=== PATIENT | male | born 1945 | race Caucasian/White ===

== ENCOUNTER 2023-11-26 03:47 | Emergency (ER) | payer MEDICARE, MEDICAID, SELFPAY ==
--- NOTE | ~2023-11-26 | XR_ITS ---
EXAMINATION: XR hip LT 2V w AP pelvis DATE: 11/26/2023 06:21 INDICATION: Left hip pain. Fall. TECHNIQUE: An anteroposterior view of the pelvis and 2 views of left hip were obtained. COMPARISON: CT lumbar spine 11/26/2023 FINDINGS: There is lumbar dextrocurvature and severe spondylosis. No fracture. Right innominate bone demonstrates cortical thickening and areas of sclerosis. There is moderate osteoarthritis of the hips . IMPRESSION: 1. Moderate osteoarthritis of the hips. 2. 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 Reviewed, dictated and finalized at location E. ECONOMICS EXTENSION WORKER IMPRESSION: 1. Moderate osteoarthritis of the hips. 2. Cortical thickening and sclerosis involving right innominate bone, consisten t with Paget disease.
--- NOTE | ~2023-11-26 | CT_ITS ---
EXAMINATION: CT lumbar spine wo con DATE: 11/26/2023 06:08 INDICATION: Fall. TECHNIQUE: Computed tomography (CT) of the lumbar spine was performed without intravenous contrast. A utomated exposure control and iterative reconstruction technique were employed. The dose-length produ ct was 1110.36 mGy-cm. COMPARISON: None FINDINGS: There is 10 degrees dextroscoliosis of thoracolumbar spine. There are Schmorl's nodes at mu ltiple levels. There are areas of sclerosis in the iliac bones. There is moderately decreased disc he ight at T10-T11, mildly decreased disc height at L1-L2 and L2-L3, moderately decreased disc height at L3-L4 and L4-L5, and severely decreased disc height at L5-S1. There is a small right pleural effusio n. There are 4 stones in left kidney measuring up to 4 mm. The following disc levels are specifically discussed: L1-L2: The disc does not extend beyond the endplate margin. There is moderate bilateral facet joint o steoarthritis. There is no neural foraminal stenosis. There is no central canal stenosis. L2-L3: The disc is bulging. There is severe bilateral facet joint osteoarthritis. There is mild bilat eral neural foraminal stenosis. There is mild central canal stenosis. L3-L4: The disc is bulging. There is severe bilateral facet joint osteoarthritis. There is moderate b ilateral neural foraminal stenosis. There is mild central canal stenosis. L4-L5: The disc is bulging. There is severe bilateral facet joint osteoarthritis. There is moderate b ilateral neural foraminal stenosis. There is moderate central canal stenosis. L5-S1: The disc is bulging. There is severe bilateral facet joint osteoarthritis. There is moderate b ilateral neural foraminal stenosis. There is mild central canal stenosis. IMPRESSION: 1. No fracture. 2. Severe lumbar spondylosis. 3. Thoracolumbar dextroscoliosis. 4. Small right pleural effusion. 5. Areas of sclerosis in the iliac bones, which may be benign bone islands, Paget disease, or metasta tic disease. Bone scan is recommended. Reviewed, dictated and finalized at location E. GER FILM IMPRESSION: 1. No fracture. 2. Severe lumbar spondylosis. 3. Thoracolumbar dextroscoliosis. 4. Small right pleural effusion. 5. Areas of sclerosis in the iliac bones, which may be benign bone islands, Pag et disease, or metastatic disease. Bone scan is recommended.
[2023-11-26 03:49] VITALS: BP 141/73; PULSE 62; RESP 16; TEMP 36.4; O2SAT 100
[2023-11-26 04:24] VITALS: BP 159/75; PULSE 64; RESP 13; O2SAT 100
--- NOTE | 2023-11-26 06:40 | ED.GENADULT ---
HPI - General Adult General Chief complaint: Extremity Injury, Lower Stated complaint: fall, L hip pain Time Seen by Provider: 11/26/23 05:19 History of Present Illness HPI narrative: Patient is a 78-year-old male who presents to the emergency department this evening complaining of left-sided hip pain. Patient states that approximately 4 or 5 days ago he fell down a few steps and landed on his left hip. Patient admits that he has been ambulatory since then but is having some left hip pain when he walks. Patient denies hitting his head and denies any loss of consciousness. Patient admits to lower back pain, denies any bowel or bladder incontinence, any numbness and no tingling or any focal weakness. Patient denies any headaches or dizziness, is currently denying any additional symptoms. There are no other modifying, alleviating, or precipitating factors at this time. Review of Systems Review of Systems: All systems are reviewed and are negative unless stated otherwise in the HPI. Exam Narrative: General: Alert, awake, afebrile, in no acute distress. HEENT: PERRL, no rhinorrhea, no post nasal drip, oropharynx clear. Neck: Trachea midline, no JVD, no lymphadenopathy. Cardiovascular: Regular rate and rhythm, no murmurs, rubs or gallops, no peripheral edema. Respiratory: Clear to auscultation bilaterally, no tachypnea, no wheezing, no rhonchi, no rubs, no respiratory distress. Abdomen: Soft, nontender, nondistended, no rebound, no guarding, no peritoneal signs. Musculoskeletal: No joint swelling or deformity, normal muscle tone. Back: Midline tenderness to palpation over the lumbar spine, no cervical or thoracic midline tenderness to palpation, no step-offs or deformities. Skin: No rashes or petechia, no signs of infection. Psychiatric: Alert and oriented, normal behavior and judgment for situation. Neurological: Alert and oriented to person, place, and time. Follows all commands. No focal deficits, speech is clear and fluent. Course Vital Signs Vital signs: Vital Signs Temperature 97.6 F 11/26/23 03:49 Pulse Rate 62 11/26/23 03:49 Respiratory Rate 16 11/26/23 03:49 Blood Pressure 141/73 H 11/26/23 03:49 Pulse Oximetry 100 11/26/23 03:49 Oxygen Delivery Room Air 11/26/23 03:49 Temperature 97.6 F 11/26/23 03:49 Pulse Rate 64 11/26/23 04:24 Respiratory Rate 13 11/26/23 04:24 Blood Pressure 159/75 H 11/26/23 04:24 Pulse Oximetry 100 11/26/23 04:24 Oxygen Delivery Room Air 11/26/23 03:49 Medical Decision Making MDM Narrative Medical decision making narrative: The patient was evaluated by myself in the emergency department. History is obtained from patient who is an independent historian and physical exam was performed. External medical records were reviewed at this time. Imaging studies obtained included a CT lumbar spine without IV contrast and pelvis x-ray with left hip x-ray which was independently interpreted by me revealing no acute process, no fractures or dislocations. 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 Patient states that he does not recall ever being told that he has been checked disease. Differential diagnosis considerations include fractures versus a dislocation of his lumbar spine and left hip. Comorbidities impacting this visit include none. I have evaluated and discussed social determinants of health with the patient that could potentially impact subsequent diagnosis and treatment plans. On repeat assessment of the patient, reevaluation revealed that the patient is doing well and is in no acute distress. Patient symptoms have remained stable since he arrived to our emergency department. Repeat vital signs were all reviewed and noted to be stable. Differential diagnosis and treatment plan were discussed with the patient at bedside. Patient agrees with discussion and after shared medical decision making agrees with discharge. All qu
[2023-11-26 06:52] VITALS: BP 148/74; PULSE 74; RESP 18; O2SAT 97
== END 2023-11-26 06:54 | disposition home or self-care (01) ==
PROVIDERS: Emergency Provider Emergency Medicine; PCP Internal Medicine
DX: S79.912A Unspecified injury of left hip, initial encounter (principal); M16.0 Bilateral primary osteoarthritis of hip; R93.7 Abnormal findings on diagnostic imaging of other parts of musculoskeletal system; W10.9XXA Fall (on) (from) unspecified stairs and steps, initial encounter
CPT/HCPCS: 72131; 73502; 99283; 99284

== ENCOUNTER 2024-01-13 10:14 | Outpatient (CLI) | payer MEDICARE, MEDICAID, SELFPAY ==
[2024-01-13 11:13] LABS: Anion Gap 7 mmol/L (4-12); Blood Urea Nitrogen 17 mg/dL (9-20); Carbon Dioxide 28 mmol/L (22-30); Chloride 102 mmol/L (98-107); Estimated Glomerular Filt Rate > 60; Glucose 123 mg/dL (65-110); Potassium 5.3 mmol/L (3.4-5.0); Sodium 137 mmol/L (137-145)
== END 2024-01-13 10:15 | disposition home or self-care (01) ==
LOC: ANHSURGERY 10:18
PROVIDERS: Anesthesiology; PCP Internal Medicine; Visit Provider Urology
DX: E11.9 Type 2 diabetes mellitus without complications (principal); Z01.818 Encounter for other preprocedural examination
CPT/HCPCS: 36415; 80048

== ENCOUNTER 2024-01-16 00:29 | Day surgery (SDC) | payer MEDICARE, MEDICAID, SELFPAY ==
[2024-01-13 09:35] VITALS: BMI 28.8
--- NOTE | 2024-01-13 11:24 | PC.NURSE ---
Report to the Outpatient Waiting Room, entrance under the green pavilion located off [facility], at time 0715 on date _01/16/24 . Planned Procedure Time: __914 . Time changes happen often and if your time is changed the preop area will call you the afternoon before. - You and your visitor will be asked to self-screen and do not enter if you have any COVID symptoms. - A mask is optional within the hospital at this time. Patients may have clear liquids (water, carbonated beverages, clear teas, apple juice) until 3 hours prior to surgery(6:15 AM ) with a maximum of 20 ounces. - No food from midnight until time of surgery - Infants may have breast milk until 4 hours before surgery, infant formula 6 hours prior to surgery. - Children will be allowed to drink immediately following surgery. If applicable, please bring a bottle or sippy cup to assist with drinking. Juice, water, soda, and popsicles are readily available. For infants on formula, please bring formula the day of surgery. Pacifiers are allowed. Take the following medications with a SIP of water the morning of surgery: __SERTRALINE DO NOT STOP ANY OF YOUR OTHER PRESCRIPTION MEDICATIONS PRIOR TO SURGERY ?EXCEPT THE FOLLOWING Medications to discontinue per physician __[facility] STATES HOLD ASPIRIN .LAST DOSE 01/09/24 AND HOLD ELIQUIS.LAST DOSE 01/13/[address] GREENE Date to take last dose Please no make-up, nail latvian, hairspray, perfume, deodorant, or body powder the day of surgery. No jewelry (including any body piercings) or valuables the day of surgery, leave them at home. Please take a shower or bath the night before, or the morning of, surgery with an antibacterial soap. Wear comfortable, loose fitting clothing. Children are encouraged to wear pajamas. - Jewelry must be removed prior to entering the operating room. Rings and piercings that are not removed may be cut off. - The hospital will not accept responsibility for valuables. - Please leave all valuables, including medications, at home the day of surgery. If you are going home after surgery, a licensed driver service technician must drive you home. - NO public transportation without another adult if you receive anesthesia. - We recommend that an adult stay with you for 24 hours following discharge. - We also recommend that you do not drive, make important decision, drink alcoholic beverages, or take any drugs that were not prescribed by your health care provider for at least 24 hours after your discharge time. For Pediatric surgeries, we recommend two adults accompany the child home. Follow any additional instructions given to you from your surgeon. If you or anyone in your household have experienced Covid symptoms in the past week, please notify your surgeon or the nurse liaison at the phone number below for possible testing. Telephone instructions given to _PT AND SON SOLA and asked if any additional questions and then verbalized understanding. Patient advised to call surgeon office or pre surgery nurse liaison [phone] if any additional questions.
[2024-01-16] VITALS (10 sets, daily range): BP systolic 100–149; BP diastolic 56–81; PULSE 51–58; RESP 12–20; TEMP 36.1–36.2; O2SAT 97–100
--- NOTE | ~2024-01-16 | XR_ITS ---
EXAMINATION: XR retrograde pyelogram BI DATE: 01/16/2024 08:56 CDT INDICATION: Bilateral retrograde pyelogram TECHNIQUE: 152 fluoroscopic images from bilateral retrograde pyelogram are submitted for review. 39 s econds fluoroscopy time. FINDINGS: Ureters are normal in course and caliber. No definite filling defects are seen. Extravasati on is noted surrounding the distal aspect of the right ureter, likely due to injection. The right julio c al pelvis is not well visualized. IMPRESSION: 1. Unremarkable bilateral retrograde pyelogram.. Correlate with real time procedural findings for de tails. Reviewed, dictated and finalized at location B. IMPRESSION: 1. Unremarkable bilateral retrograde pyelogram.. Correlate with real time proc edural findings for details.
--- NOTE | 2024-01-16 06:07 | WPDHPUPDATE1 ---
History and Physical Update Update Date/Time: 01/16/24 06:07 History and Physical has been reviewed, including an updated exam of the patient. There are NO changes in the patient's condition. Risks, benefits, and alternatives have been discussed and questions answered. Patient agrees to proceed with procedure.
[2024-01-16] MEDS: LACTATED RINGERS 1,000 ML 30 ML IV CONT (08:06)
--- NOTE | 2024-01-16 08:14 | WPDANESEPPF ---
Anes - Initial Pre Proc Eval Procedure: Operation Date: 01/16/24 09:15 Proposed Procedures p Transurethral Resection of Bladder Tumor, - Hugo Freeman MD s Bilateral Retrograde Pyelography, Gemcitabine Instillation - Hugo Freeman MD Date/Time: 01/16/24 08:14 Surgeon: Hugo Freeman MD Pre Op Diagnosis: gross hematuria Patient Data Age: 78 Gender: M Height: 1.85 m Weight: 95.6 kg Last Vital Signs Temp 97.0 F L 01/16/24 07:41 Pulse 57 L 01/16/24 07:41 Resp 18 01/16/24 07:41 BP 118/56 L 01/16/24 07:41 Pulse Ox 99 01/16/24 07:41 O2 Del Method Room Air 01/16/24 07:41 Allergies Allergy/AdvReac Type Severity Reaction Status Date / Time amitriptyline AdvReac Other Verified 01/16/24 07:36 codeine AdvReac Confusion Verified 01/16/24 08:06 morphine AdvReac Nausea and Verified 01/16/24 07:36 Vomiting Penicillins AdvReac Swelling Verified 01/16/24 07:36 Home Medications Medication Instructions Recorded Confirmed Type apixaban 5 mg tablet (Eliquis) 5 mg PO BID 01/13/24 01/16/24 History aspirin 81 mg tablet,delayed 81 mg PO DAILY 01/13/24 01/16/24 History release (Adult Low Dose Aspirin) atorvastatin 80 mg tablet 40 mg PO DAILY 01/13/24 01/16/24 History dulaglutide 1.5 mg/0.5 mL 1.5 mg subcut WEEKLY 01/13/24 01/16/24 History subcutaneous pen injector (Trulicity) enoxaparin 80 mg/0.8 mL 80 mg subcut BID 01/13/24 01/16/24 History subcutaneous syringe lisinopril 2.5 mg tablet 2.5 mg PO DAILY 01/13/24 01/16/24 History metformin 500 mg tablet,extended 500 mg PO DAILY 01/13/24 01/16/24 History release 24 hr mirabegron 50 mg tablet,extended 50 mg PO DAILY 01/13/24 01/16/24 History release 24 hr (Myrbetriq) omeprazole 20 mg capsule,delayed 20 mg PO BID 01/13/24 01/16/24 History release sertraline 50 mg tablet 50 mg PO DAILY 01/13/24 01/16/24 History tamsulosin 0.4 mg capsule 0.4 mg PO DAILY 01/13/24 01/16/24 History Patient hx anesthesia problems: none Family hx anesthesia problems: none Results Review: All pre-operative results and documents have been reviewed as part of the pre-operative evaluation. [facility] Social History Social History Smoking packs per day: 0.5 Smoking cigarettes per day: 10.0 Years smoked: 20 Smoking pack-years: 10.00 Smoking status: Former smoker Tobacco type: cigarettes Smoking end date: 09/23/94 Living arrangements: with family Spiritual care concerns: No Anes - Eval Final PreProcedure Day of Procedure 01/16/24 08:14 Patient weight: normal Heart: regular rate and rhythm Lungs: clear to auscultation Airway: Mallampati scale and special considerations (Edentulous. ) Neurological: alert and oriented Last oral intake: >/= 8 hours ASA classification: III Emergent: no Anesthetic plan: proceed Anesthesia type and monitoring: general LMA and standard monitoring Results Review: All pre-operative results and documents have been reviewed as part of the pre-operative evaluation. Informed Consent: The patient's anesthetic plan and its attendant risks and benefits were discussed with the patient/family/POA. Questions were solicited and answers provided to the satisfaction of the patient/family/POA.
[2024-01-16 08:19] LABS: Glucose Point of Care 127 mg/dl (65-105)
[2024-01-16] MEDS: ceFAZolin 2 GM/D5W 50 ML 2 GM/50 ML BAG IVPB (08:24)
[2024-01-16] MEDS: LIDOCAINE HCL 2% GEL UROJET 10 ML PKG MUCOUS MEM (08:44)
--- NOTE | 2024-01-16 09:05 | W.PM.PROC2 ---
Procedure Note - Detailed Date of Procedure 01/16/24 Pre-op Diagnosis Gross hematuria Post-op Diagnosis Same Procedure Performed cystoscopy, urethral dilatation, bilateral retrograde pyelography, TURBT (medium, 4cm) Surgeon Hugo Freeman MD Anesthesia General Description of Procedure Patient is brought to the operative suite he was prepped draped in routine sterile fashion will dorsal lithotomy position. I had to dilate his external urethral meatus from 18 to 26 F in order to place a 24 F resectoscope sheath. I 1st started with a 19 F rigid cystoscope. Other than the meatal stenosis is no urethral strictures. He has significant lateral lobe hyperplasia and a small median lobe of the prostate. Prostatic urethra measures 2.5-3 cm. The bladder shows slight trabeculation. There these previously identified areas of unusual hyperemia in the left and right posterior lateral bladder wall. I 1st obtain retrograde pyelograms with a 5 F ball-tip catheter. Because of J hooking is a little difficult to fill is right collecting system but there was no obvious points of obstruction, hydronephrosis, filling defects or other identifiable pathology. Using a 24 F resectoscope I then resected these areas of hyperemia with an attempt made to include detrusor muscle for pathological evaluation of any invasion if this turns out to be neoplastic. Base and periphery were cauterized. This was done with care to avoid injury to the ureteral orifices. Drains No Packing No Pathology Yes Complications No immediate complications Condition Stable
--- NOTE | 2024-01-16 09:08 | W.PM.PROC2 ---
Procedure Note - Detailed Date of Procedure 01/16/24 Pre-op Diagnosis Gross hematuria Post-op Diagnosis Same Procedure Performed Gemcitabine installation Surgeon Hugo Freeman MD Anesthesia None Description of Procedure With the patient in the supine position, a 16F Omer catheter is placed using sterile technique. Using a protective facemask, gown and double layer of gloves Gemcitabine 2gm in 100cc saline is administered through the catheter/into the bladder. The catheter is then plugged. Patient was instructed to lie supine x20min, then to roll both the left and right x20 min. each. Total dwell time will be 60 min., after which the bladder will be drained and catheter removed. Complications No immediate complications Condition Stable
[2024-01-16 09:14] LABS: Glucose Point of Care 133 mg/dl (65-105)
[2024-01-16] MEDS: SODIUM CHLORIDE 0.9% IV 23.7 ML, GEMCITABINE HCL 1,000 MG BLADDER ×2 (09:23→09:24)
[2024-01-16] MEDS: oxyCODONE HCL (*CRX) 5 MG TAB IR PO (11:00)
== END 2024-01-16 11:29 | disposition home or self-care (01) ==
PROVIDERS: PCP Internal Medicine; Visit Provider Urology
PROC: 0TBB8ZZ Excision of Bladder, Via Natural or Artificial Opening Endoscopic (ICD-10-PCS; CPT 52235; principal; 2024-01-16 09:15)
PROC: (CPT 52352; 2024-01-16 09:15)
DX: N30.21 Other chronic cystitis with hematuria (principal); I10 Essential (primary) hypertension; E11.9 Type 2 diabetes mellitus without complications; I25.2 Old myocardial infarction; Z79.82 Long term (current) use of aspirin; Z79.01 Long term (current) use of anticoagulants; Z79.84 Long term (current) use of oral hypoglycemic drugs; Z79.85 Long-term (current) use of injectable non-insulin antidiabetic drugs; Z98.890 Other specified postprocedural states; Z90.49 Acquired absence of other specified parts of digestive tract; Z87.891 Personal history of nicotine dependence; Z80.9 Family history of malignant neoplasm, unspecified
CPT/HCPCS: 52235; 36415; 51720; 74420; 80048; 82948; 88305; 88342; A9270; C1758; C1769; J0690; J2405; J2704; J3010; J7120; J9201; Q9966

== ENCOUNTER 2024-01-25 12:01 | Emergency (ER) | payer MEDICARE, MEDICAID, SELFPAY ==
[2024-01-25 12:07] VITALS: BP 140/63; PULSE 97; RESP 18; TEMP 36.3; O2SAT 100
[2024-01-25 13:07] LABS: Appearance Urine Turbid (Clear); Bacteria Urine None Seen /hpf; Bilirubin Urine Negative (Negative); Blood Urine 3+ (Negative); Color Urine Yellow (Yellow); Glucose Urine UA 3+ mg/dL (Negative); Ketones Urine Negative (Negative); Leukocyte Esterase Ur 2+ LEU/UL (Negative); Nitrate Urine Negative (Negative); Protein Urine 2+ mg/dL (Negative); RBC Urine >100 /hpf (0-2); Squamous Epithelial Cell Urine None Seen /hpf (Few); Urobilinogen Urine 0.2 mg/dL (<2.0); WBC Urine >100 /hpf (0-3); pH Urine 5.5 (5.0-9.0)
[2024-01-25 13:10] LABS: Specific Grav Ur 1.035 (1.001-1.035)
[2024-01-25 13:13] LABS: Add Urine Microscopic? YES
--- NOTE | 2024-01-25 13:49 | ED.MALEGU ---
HPI - Male Genitourinary General Chief complaint: Urogenital-Male Stated complaint: painful urination Time Seen by Provider: 01/25/24 13:20 Source: patient Mode of arrival: ambulatory Limitations: no limitations History of Present Illness HPI Narrative: This is a 78-year-old male that presents to the emergency department for dysuria. Ongoing over the last week since his recent cystoscopy. Reports having bladder tumors removed. Since the procedure he has been having dysuria and urinary incontinence. He initially was having some hematuria, which has now resolved. Denies fevers, vomiting, or flank pain. Related Data Home Medications Medication Instructions Recorded Confirmed apixaban 5 mg tablet (Eliquis) 5 mg PO BID 01/13/24 01/16/24 aspirin 81 mg tablet,delayed 81 mg PO DAILY 01/13/24 01/16/24 release (Adult Low Dose Aspirin) atorvastatin 80 mg tablet 40 mg PO DAILY 01/13/24 01/16/24 dulaglutide 1.5 mg/0.5 mL 1.5 mg subcut WEEKLY 01/13/24 01/16/24 subcutaneous pen injector (Trulicity) enoxaparin 80 mg/0.8 mL 80 mg subcut BID 01/13/24 01/16/24 subcutaneous syringe lisinopril 2.5 mg tablet 2.5 mg PO DAILY 01/13/24 01/16/24 metformin 500 mg tablet,extended 500 mg PO DAILY 01/13/24 01/16/24 release 24 hr mirabegron 50 mg tablet,extended 50 mg PO DAILY 01/13/24 01/16/24 release 24 hr (Myrbetriq) omeprazole 20 mg capsule,delayed 20 mg PO BID 01/13/24 01/16/24 release sertraline 50 mg tablet 50 mg PO DAILY 01/13/24 01/16/24 tamsulosin 0.4 mg capsule 0.4 mg PO DAILY 01/13/24 01/16/24 Allergies Allergy/AdvReac Type Severity Reaction Status Date / Time amitriptyline AdvReac Other Verified 01/25/24 12:05 codeine AdvReac Confusion Verified 01/25/24 12:05 morphine AdvReac Nausea and Verified 01/25/24 12:05 Vomiting Penicillins AdvReac Swelling Verified 01/25/24 12:05 Review of Systems Review of Systems: CONSTITUTIONAL: Denies fever GASTROINTESTINAL: Denies abdominal pain, nausea, vomiting GENITOURINARY: Reports dysuria and hematuria. All systems reviewed & are unremarkable except as noted in HPI and below PMFSH Past Medical History Medical History (Updated 01/25/24 @ 15:06 by Ly Bullard PA-C) History of diabetes mellitus History of hypertension Surgical History Surgical History (Updated 01/25/24 @ 13:50 by Ly Bullard PA-C) History of transurethral resection of bladder tumor (TURBT) Social History Social History Smoking packs per day: 0.5 Smoking cigarettes per day: 10.0 Years smoked: 20 Smoking pack-years: 10.00 Smoking status: Former smoker Tobacco type: cigarettes Smoking end date: 09/23/94 Living arrangements: with family Spiritual care concerns: No Exam Narrative: GENERAL: Well-appearing, well-nourished, and in no acute distress. HEAD: Normocephalic, atraumatic. EYES: EOMI. CHEST: Clear to auscultation. No respiratory distress. No wheezes rales or rhonchi HEART: Regular rate and rhythm. No murmur heard. Normal peripheral pulses. ABDOMEN: Soft, nontender, nondistended, normal active bowel sounds. No CVA tenderness EXTREMITIES: Normal range of motion. No edema. SKIN: Warm, dry, no rash. NEURO: No focal deficits. Alert and oriented x3. PSYCH: Normal mood and affect Course Course Emergency Course: Patient updated on workup and agrees with plan of care Consultations Consultation #1: Spoke with Dr. Hernandez about patient and workup who agrees with oral antibiotics and follow up in clinic Date: 01/25/24 Vital Signs Vital signs: Vital Signs Temperature 97.3 F L 01/25/24 12:07 Pulse Rate 97 01/25/24 12:07 Respiratory Rate 18 01/25/24 12:07 Blood Pressure 140/63 01/25/24 12:07 Pulse Oximetry 100 01/25/24 12:07 Temperature 97.3 F L 01/25/24 12:07 Pulse Rate 97 01/25/24 12:07 Respiratory Rate 18 01/25/24 12:07 Blood Pressure 140/63
[2024-01-25 13:51] LABS: Basophils Percent Auto 0.3 % (0.2-1.2); Eosinophils Absolute Auto 0.2 K/mm3 (0-0.3); Eosinophils Percent Auto 3.4 % (0-4.4); Hematocrit 40.9 % (42.0-52.0); Hemoglobin 13.3 g/dL (14.0-18.0); Lymphocytes Absolute Auto 1.83 K/mm3 (0.9-3.2); Lymphocytes Percent Auto 31.4 % (18.3-44.2); Mean Corpuscular HGB Conc 32.5 g/dl (32-36); Mean Corpuscular Hemoglobin 29.7 pg (26-34); Mean Corpuscular Volume 91.3 fl (80-100); Mean Platelet Volume 8.2 fl (7.4-10.4); Monocytes Absolute Auto 0.5 K/mm3 (0.1-0.6); Monocytes Percent Auto 7.9 % (2.6-8.5); Neutrophils Absolute Auto 3.3 K/mm3 (1.3-6.7); Platelet Count Result 200 k/mm3 (150-375); Red Blood Count 4.48 M/mm3 (4.6-6.20); Red Cell Distribution Width 14.1 % (11.5-14.5); White Blood Count 5.8 K/mm3 (4.5-10.0)
[2024-01-25 14:07] LABS: Anion Gap 8 mmol/L (4-12); Blood Urea Nitrogen 20 mg/dL (9-20); Calcium 9.3 mg/dL (8.4-10.2); Carbon Dioxide 26 mmol/L (22-30); Chloride 104 mmol/L (98-107); Estimated CRCL calculation 67 ml/min; Estimated Glomerular Filt Rate > 60; Glucose 174 mg/dL (65-110); Potassium 4.2 mmol/L (3.4-5.0); Sodium 138 mmol/L (137-145)
[2024-01-25 15:26] VITALS: BP 116/66; PULSE 66; RESP 18; O2SAT 96
== END 2024-01-25 15:44 | disposition home or self-care (01) ==
PROVIDERS: Emergency Medicine; Emergency Provider Physician Assistant; PCP Internal Medicine
DX: N30.00 Acute cystitis without hematuria (principal); E11.9 Type 2 diabetes mellitus without complications; I10 Essential (primary) hypertension; Z87.891 Personal history of nicotine dependence; Z79.01 Long term (current) use of anticoagulants; Z79.82 Long term (current) use of aspirin; Z79.84 Long term (current) use of oral hypoglycemic drugs
CPT/HCPCS: 36415; 80048; 81001; 85025; 87077; 87086; 87088; 87181; 96365; 99284; J0696

== ENCOUNTER 2024-01-28 23:57 | Observation (INO) | payer MEDICARE, MEDICAID, SELFPAY ==
--- NOTE | ~2024-01-28 | CT_ITS ---
Non-contrast CT scan of the Abdomen and Pelvis Clinical indication: Hematuria, recent cystoscopy Technique: 2.5 mm axial scans were obtained through the abdomen and pelvis without intravenous or or al contrast. Dose reduction technique was used on this scan by utilizing automated exposure control a nd iterative reconstruction technique. The dose-length product (DLP) was 749.53 mGy-cm. Findings: Images through the lung bases reveal probable rounded atelectatic change at the right lung base. There is [id number] bilateral hydroureteronephrosis. No ureteral stones seen. There are small n onobstructing left lower pole renal stones, largest measuring 6 mm. No right renal stones. The liver, spleen, pancreas, and adrenals appear normal. Cholecystectomy clips are present. There is no aortic aneurysm. There is no evidence of bowel obstruction. Images through the pelvis were performed. There is no evidence of ascites or lymphadenopathy. Urinary bladder is filled with hyperdense material and small bubbles of air, compatible with large intralumi nal blood clot or blood products within the urinary bladder. No pelvic mass evident otherwise. Small fat-containing right inguinal hernia noted. Paget's disease of the right iliac bone and right ischium noted. Impression: Large amount of blood products versus hematoma within the urinary bladder, as well as small bubbles o f air which are likely iatrogenic. Mild to moderate bilateral hydroureteronephrosis. Number small nonobstructing left lower pole renal s tones. Small fat-containing right inguinal hernia. Paget's disease in the right pelvis, as detailed above. Reviewed, dictated and finalized at location . Impression: Large amount of blood products versus hematoma within the urinary bladder, as w ell as small bubbles of air which are likely iatrogenic. Mild to moderate bilateral hydroureteronephrosis. Number small nonobstructing l eft lower pole renal stones. Small fat-containing right inguinal hernia. Paget's disease in the right pelvis, as detailed above.
[2024-01-29] VITALS (15 sets, daily range): BP systolic 105–160; BP diastolic 55–83; PULSE 58–109; RESP 14–20; TEMP 36.2–36.5; O2SAT 95–100; BMI 27.2
--- NOTE | 2024-01-29 02:01 | ED.MALEGU ---
HPI - Male Genitourinary General Chief complaint: Urogenital-Male Stated complaint: Bleeding from penis Time Seen by Provider: 01/29/24 00:25 Source: patient and old records reviewed Mode of arrival: ambulatory Limitations: no limitations History of Present Illness HPI Narrative: Patient is a 78-year-old male who presents the ED with report of bleeding from his penis. Patient reports he underwent cystoscopy with TURBT and urethral dilation with Dr. Freeman on 01/15. Patient reports over the last several days, he has had intermittent hematuria and dysuria. He was seen in the ED here on 01/24 and diagnosed with urinary tract infection, given rocephin in the ED, started on cefdinir. Per records, urine culture grew out VRE. Patient reports ongoing hematuria to the point he is dripping blood of his penis today. Reports significant pain in his lower abdomen/suprapubic region. Denies N/V, fevers. Related Data Home Medications Medication Instructions Recorded Confirmed apixaban 5 mg tablet (Eliquis) 5 mg PO BID 01/13/24 01/16/24 aspirin 81 mg tablet,delayed 81 mg PO DAILY 01/13/24 01/16/24 release (Adult Low Dose Aspirin) atorvastatin 80 mg tablet 40 mg PO DAILY 01/13/24 01/16/24 dulaglutide 1.5 mg/0.5 mL 1.5 mg subcut WEEKLY 01/13/24 01/16/24 subcutaneous pen injector (Trulicity) enoxaparin 80 mg/0.8 mL 80 mg subcut BID 01/13/24 01/16/24 subcutaneous syringe lisinopril 2.5 mg tablet 2.5 mg PO DAILY 01/13/24 01/16/24 metformin 500 mg tablet,extended 500 mg PO DAILY 01/13/24 01/16/24 release 24 hr mirabegron 50 mg tablet,extended 50 mg PO DAILY 01/13/24 01/16/24 release 24 hr (Myrbetriq) omeprazole 20 mg capsule,delayed 20 mg PO BID 01/13/24 01/16/24 release sertraline 50 mg tablet 50 mg PO DAILY 01/13/24 01/16/24 tamsulosin 0.4 mg capsule 0.4 mg PO DAILY 01/13/24 01/16/24 Allergies Allergy/AdvReac Type Severity Reaction Status Date / Time iodine Allergy Rash Verified 01/29/24 02:40 amitriptyline AdvReac Other Verified 01/25/24 12:05 codeine AdvReac Confusion Verified 01/25/24 12:05 morphine AdvReac Nausea and Verified 01/25/24 12:05 Vomiting Penicillins AdvReac Swelling Verified 01/25/24 12:05 Review of Systems Review of Systems: CONSTITUTIONAL: Denies fever, chills, or sweats. CARDIOVASCULAR: Denies chest pain. RESPIRATORY: Denies dyspnea. GASTROINTESTINAL: See HPI GENITOURINARY: See HPI. MUSCULOSKELETAL: Denies back pain, extremity pain, myalgia. All systems reviewed & are unremarkable except as noted in HPI and below PMFSH Past Medical History Medical History History of diabetes mellitus History of hypertension Surgical History Surgical History History of transurethral resection of bladder tumor (TURBT) Social History Social History Smoking packs per day: 0.5 Smoking cigarettes per day: 10.0 Years smoked: 20 Smoking pack-years: 10.00 Smoking status: Former smoker Tobacco type: cigarettes Smoking end date: 09/23/94 Living arrangements: with family Spiritual care concerns: No Exam Narrative: GENERAL: Uncomfortable appearing, well-nourished, non-toxic, in mild acute distress d/t pain. HEAD: Normocephalic, atraumatic. RESPIRATORY: Airway patent, respirations nonlabored. Clear to auscultation bilaterally, no rales, rhonchi, wheezing. CARDIOVASCULAR: Regular rate and rhythm ABDOMINAL: Soft, diffuse tenderness in suprapubic region, no rebound. Nondistended. Normoactive BS. GENITAL: Uncircumcised male with dark red blood dripping from urethra. MUSCULOSKELETAL: Moves all extremities. No gross deformities. SKIN: Warm, dry, normal color. NEURO: A&O X3. Speech clear. PSYCHIATRIC: Appropriate mood and affect. Normal interaction. Course Vital Signs Vital signs: Vital Signs
[2024-01-29] MEDS: SODIUM CHLORIDE 0.9% IV 1,000 ML 999 ML IV CONT (02:04)
[2024-01-29 02:07] LABS: Basophils Absolute Auto 0.1 K/mm3 (0.0-0.1); Basophils Percent Auto 0.5 % (0.2-1.2); Eosinophils Absolute Auto 0.2 K/mm3 (0-0.3); Eosinophils Percent Auto 2.2 % (0-4.4); Hematocrit 42.5 % (42.0-52.0); Hemoglobin 13.5 g/dL (14.0-18.0); Immature Granulocyte Absolute 0.03 K/mm3 (0.00-0.031); Immature Granulocyte Percent A 0.3 % (0-0.5); Lymphocytes Percent Auto 25.7 % (18.3-44.2); Mean Corpuscular HGB Conc 31.8 g/dl (32-36); Mean Corpuscular Hemoglobin 29.2 pg (26-34); Mean Platelet Volume 8.6 fl (7.4-10.4); Monocytes Absolute Auto 0.7 K/mm3 (0.1-0.6); Monocytes Percent Auto 7.4 % (2.6-8.5); Neutrophils Percent Auto 63.9 % (45.5-73.1); Platelet Count Result 264 k/mm3 (150-375); Red Blood Count 4.62 M/mm3 (4.6-6.20); Red Cell Distribution Width 14.2 % (11.5-14.5); White Blood Count 9.4 K/mm3 (4.5-10.0)
[2024-01-29 02:18] LABS: Anion Gap 12 mmol/L (4-12); Blood Urea Nitrogen 21 mg/dL (9-20); Carbon Dioxide 24 mmol/L (22-30); Chloride 104 mmol/L (98-107); Estimated CRCL calculation 61 ml/min; Estimated Glomerular Filt Rate > 60; Glucose 195 mg/dL (65-110); INR 1.1; Potassium 4.5 mmol/L (3.4-5.0); Prothrombin Time 14.6 Seconds (11.1-14.7); Sodium 140 mmol/L (137-145)
[2024-01-29 02:19] LABS: Partial Thromboplastin Time 35.4 Seconds (22.3-36.8)
[2024-01-29] MEDS: ONDANSETRON INJ 4 MG/2 ML VIAL IV PUSH (02:21)
[2024-01-29] MEDS: MORPHINE SULFATE (*CRX) 4 MG/ML INJ IV PUSH ×3 (02:21→08:37)
[2024-01-29] MEDS: LIDOCAINE HCL 2% GEL UROJET 10 ML PKG MUCOUS MEM ×2 (03:45→11:32)
--- NOTE | 2024-01-29 04:17 | PC.NURSE ---
0417: This RN attempted to put in three way catheter in pt. RN kept meeting resistance. Two other Rn attempted as well and could not get it. We tried all sizes and none would work. This RN told typing secretary to page Dr. Leonardo to discuss options. Charge nurse was notified at this time.
[2024-01-29] MEDS: LINEZOLID 600 MG/300 ML 600 MG/300 ML SOLN 300 MG IVPB ×2 (04:55→21:14)
--- NOTE | 2024-01-29 05:56 | ADMGEN ---
This patient, Cosme Javier, was admitted to [facility] Surg Room 312-01. Patient/family oriented to hospital policies and general routines including ID bracelet, bed and alarms, visiting hours, pain management, procedures, bathroom and other care routines, personal items, smoking policy, room service/diet, and visiting hours. Information on how to activate the Rapid Response Team has been discussed. Patient/Family are encouraged to report perceived risks to care and to ask questions if they do not understand what they are told or what they should do.
--- NOTE | 2024-01-29 07:40 | PM.IMHP ---
H&P: HPI History of Present Illness Date/Time: 01/29/24 07:40 Chief Complaint: Hematuria and dysuria Narrative: Patient is a 78-year-old male with history of diabetes hypertension, GERD, anxiety, on Eliquis 5 mg with chief complaint of a bleeding from his penis.? pt underwent cystoscopy with TURBT and urethral dilation with Dr. Freeman on 01/15.? Patient reports over the last several days, he has had intermittent hematuria and dysuria.? He was seen in the ED here on 01/24 and diagnosed with urinary tract infection, given rocephin in the ED, started on cefdinir.? Per records, urine culture grew out VRE.? Patient reports ongoing hematuria to the point he is dripping blood of his penis today.? patient has suprapubic pain, denies chest pain, shortness breast, headache, fever chills upon arrival to ED, patient afebrile, blood pressure stable, no pulse ox desaturation on room air, Review of Systems Review of Systems: ROS negative Constitutional: Comments: none exam PMFSH Past Medical History Medical History History of diabetes mellitus History of hypertension Surgical History Surgical History History of transurethral resection of bladder tumor (TURBT) Social History Social History Smoking packs per day: 0.5 Smoking cigarettes per day: 10.0 Years smoked: 20 Smoking pack-years: 10.00 Smoking status: Former smoker Tobacco type: cigarettes Smoking end date: 09/23/94 Living arrangements: with family Spiritual care concerns: No Meds Home Medications and Allergies Home Medications Medication Instructions Recorded Confirmed Type apixaban 5 mg tablet (Eliquis) 5 mg PO BID 01/13/24 01/29/24 History aspirin 81 mg tablet,delayed 81 mg PO DAILY 01/13/24 01/29/24 History release (Adult Low Dose Aspirin) atorvastatin 80 mg tablet 40 mg PO DAILY 01/13/24 01/29/24 History dulaglutide 1.5 mg/0.5 mL 1.5 mg subcut WEEKLY 01/13/24 01/29/24 History subcutaneous pen injector (Trulicity) lisinopril 2.5 mg tablet 2.5 mg PO DAILY 01/13/24 01/29/24 History mirabegron 50 mg tablet,extended 50 mg PO DAILY 01/13/24 01/29/24 History release 24 hr (Myrbetriq) omeprazole 20 mg capsule,delayed 20 mg PO BID 01/13/24 01/29/24 History release tamsulosin 0.4 mg capsule 0.4 mg PO DAILY 01/13/24 01/29/24 History cefdinir 300 mg capsule 300 mg PO Q12H 1 week #14 caps 01/25/24 01/29/24 Rx gabapentin 300 mg capsule 300 mg PO BID 01/29/24 01/29/24 History Allergies Allergy/AdvReac Type Severity Reaction Status Date / Time iodine Allergy Rash Verified 01/29/24 02:40 Penicillins Allergy Swelling Verified 01/29/24 08:14 amitriptyline AdvReac Other Verified 01/25/24 12:05 codeine AdvReac Confusion Verified 01/25/24 12:05 morphine AdvReac Nausea and Verified 01/25/24 12:05 Vomiting Vital Signs Vital Signs - 24 hr 01/29/24 00:04 01/29/24 04:20 01/29/24 05:46 Temperature 97.6 F 97.4 F L Pulse Rate 90 109 H 100 Respiratory Rate 18 20 17 Blood Pressure 157/82 H 159/83 H 160/82 H Pulse Oximetry 96 95 96 Oxygen Delivery Room Air Exam Narrative: GENERAL: Pleasant, in no acute distress. Well-nourished. - EYES: EOMI. Anicteric. - HENT: Moist mucous membranes. - LUNGS: Clear to auscultation bilaterally, no wheezing, rhonchi, or rales. - CARDIOVASCULAR: Regular rate and rhythm. No murmur. No JVD. - ABDOMEN: Soft, non-tender and non-distended. No palpable masses. - EXTREMITIES: No edema. Peripheral pulses 2+. Non-tender. - NEUROLOGIC: No focal neurological deficits. CN II-XII grossly intact. - PSYCHIATRIC: Awake, Alert and oriented x 3. Appropriate mood and affect. - SKIN: No rashes or lesions. Warm. - LYMPH: No cervical lymphadenopathy. H&P: Results Labs Labs: Short CBC 01/29/24 Range/Units 02:02
--- NOTE | 2024-01-29 08:12 | WPDURCON ---
Assessment and Plan Assessment and plan (1) Gross hematuria: Code(s): R31.0 - Gross hematuria Status: Acute Assessment and Plan: CT demonstrates large amount of blood products versus hematoma within the urinary bladder. Will plan for cystoscopy and clot evacuation this afternoon with Dr. Martines. Continue NPO diet. (2) VRE (vancomycin-resistant Enterococci): Code(s): A49.1 - Streptococcal infection, unspecified site; Z16.21 - Resistance to vancomycin Status: Acute Assessment and Plan: Urine culture collected on 01/25/2024 with growth of VRE. Continue linezolid (3) Hydronephrosis: Qualifiers: Hydronephrosis type: unspecified Qualified Code(s): N13.30 - Unspecified hydronephrosis Code(s): N13.30 - Unspecified hydronephrosis Status: Acute Assessment and Plan: [id number] hydro noted on CT. Likely due to clot retention. Planning for clot evacuation and Omer catheter placement this afternoon Urology Consult Note HPI Date Seen: 01/29/24 Requesting Physician: Ling Aquino DO Primary Care Provider: Sahara LeeMD Consult Narrative Narrative: Cosme Javier is a 78 year old male with a history of gross hematuria who underwent recent cystoscopy, urethral dilation, TURBT and gemcitabine installation on 01/16/2024. 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 He is being seen in consultation for recurrence of gross hematuria. He was previously on chronic anticoagulation with Eliquis, though this has been on hold. He presented to the emergency department on 01/28/2024 with complaints of dysuria and gross hematuria. He states for the past 2 days he was passing tiny clots and then yesterday when trying to void his urine was grossly bloody and he had difficulty emptying his bladder. Also complained of dysuria. He now complains of rather significant suprapubic pressure. CT on presentation showed large amount of blood products versus hematoma within the urinary bladder as well as mild to moderate bilateral hydronephrosis and small nonobstructing renal stones. Attempts to place a Omer were unsuccessful. He is voiding only a scant amount of grossly bloody urine with clots. His hemoglobin has remained stable, 13.5 today. White blood cell count is within normal limits. Creatinine is normal at 1.0. Of note, he went to the emergency room on 01/25/2024 with complaints of dysuria and urine culture was completed with growth of VRE E. He is currently on linezolid. Review of Systems Review of Systems: All systems reviewed & are unremarkable except as noted in HPI and below PMFSH Past Medical History Medical History History of diabetes mellitus History of hypertension Surgical History Surgical History History of transurethral resection of bladder tumor (TURBT) Social History Social History Smoking packs per day: 0.5 Smoking cigarettes per day: 10.0 Years smoked: 20 Smoking pack-years: 10.00 Smoking status: Former smoker Tobacco type: cigarettes Smoking end date: 09/23/94 Living arrangements: with family Spiritual care concerns: No Meds Home Medications and Allergies Home Medications Medication Instructions Recorded Confirmed Type apixaban 5 mg tablet (Eliquis) 5 mg PO BID 01/13/24 01/29/24 History aspirin 81 mg tablet,delayed 81 mg PO DAILY 01/13/24 01/29/24 History release (Adult Low Dose Aspirin) atorvastatin 80 mg tablet 40 mg PO DAILY 01/13/24 01/29/24 History dulaglutide 1.5 mg/0.5 mL 1.5 mg subcut WEEKLY 01/13/24 01/29/24 History subcutaneous pen injector ([facility]ulic[facility]) lisinopril 2.5 mg tablet 2.5 mg PO DAILY 01/13/24 01/29/24 History
--- NOTE | 2024-01-29 10:21 | WPDHPUPDATE1 ---
History and Physical Update Update Date/Time: 01/29/24 10:21 History and Physical has been reviewed, including an updated exam of the patient. There are NO changes in the patient's condition. Risks, benefits, and alternatives have been discussed and questions answered. Patient agrees to proceed with procedure.
[2024-01-29 10:47] LABS: Glucose Point of Care 191 mg/dl (65-105)
--- NOTE | 2024-01-29 11:09 | WPDANESEPPF ---
Anes - Initial Pre Proc Eval Procedure: Operation Date: 01/29/24 11:45 Proposed Procedures p Cystoscopy, Bladder Clot Evacuation - Asaf Martines MD Date/Time: 01/29/24 11:09 Surgeon: Ling Aquino DO Pre Op Diagnosis: UTI, VRE, Hematuria Patient Data Age: 78 Gender: M Height: 1.85 m Weight: 93.7 kg Last Vital Signs Temp 36.3 C L 01/29/24 10:34 Pulse 83 01/29/24 10:34 Resp 14 01/29/24 10:34 BP 135/69 01/29/24 10:34 Pulse Ox 95 01/29/24 10:34 O2 Del Method Room Air 01/29/24 10:34 Allergies Allergy/AdvReac Type Severity Reaction Status Date / Time iodine Allergy Rash Verified 01/29/24 02:40 Penicillins Allergy Swelling Verified 01/29/24 08:14 amitriptyline AdvReac Other Verified 01/25/24 12:05 codeine AdvReac Confusion Verified 01/25/24 12:05 morphine AdvReac Nausea and Verified 01/25/24 12:05 Vomiting Home Medications Medication Instructions Recorded Confirmed Type apixaban 5 mg tablet (Eliquis) 5 mg PO BID 01/13/24 01/29/24 History aspirin 81 mg tablet,delayed 81 mg PO DAILY 01/13/24 01/29/24 History release (Adult Low Dose Aspirin) atorvastatin 80 mg tablet 40 mg PO DAILY 01/13/24 01/29/24 History dulaglutide 1.5 mg/0.5 mL 1.5 mg subcut WEEKLY 01/13/24 01/29/24 History subcutaneous pen injector (Trulicity) lisinopril 2.5 mg tablet 2.5 mg PO DAILY 01/13/24 01/29/24 History mirabegron 50 mg tablet,extended 50 mg PO DAILY 01/13/24 01/29/24 History release 24 hr (Myrbetriq) omeprazole 20 mg capsule,delayed 20 mg PO BID 01/13/24 01/29/24 History release tamsulosin 0.4 mg capsule 0.4 mg PO DAILY 01/13/24 01/29/24 History cefdinir 300 mg capsule 300 mg PO Q12H 1 week #14 caps 01/25/24 01/29/24 Rx gabapentin 300 mg capsule 300 mg PO BID 01/29/24 01/29/24 History Laboratory Tests 01/29/24 01/29/24 02:02 10:41 WBC 9.4 K/mm3 (4.5-10.0) RBC 4.62 M/mm3 (4.6-6.20) Hgb 13.5 L g/dL (14.0-18.0) Hct 42.5 % (42.0-52.0) MCV 92.0 fl (80-100) MCH 29.2 pg (26-34) MCHC 31.8 L g/dl (32-36) RDW 14.2 % (11.5-14.5) Plt Count 264 k/mm3 (150-375) MPV 8.6 fl (7.4-10.4) Immature Gran % (Auto) 0.3 % (0-0.5) Neut % (Auto) 63.9 % (45.5-73.1) Lymph % (Auto) 25.7 % (18.3-44.2) [place] % (Auto) 7.4 % (2.6-8.5) Eos % (Auto) 2.2 % (0-4.4) Baso % (Auto) 0.5 % (0.2-1.2) Lymph # (Auto) 2.40 K/mm3 (0.9-3.2) [place] # (Auto) 0.7 H K/mm3 (0.1-0.6) Eos # (Auto) 0.2 K/mm3 (0-0.3) Baso # (Auto) 0.1 K/mm3 (0.0-0.1) Abs Immat Gran (auto) 0.03 K/mm3 (0.00-0.031) Absolute Neuts (auto) 6.0 K/mm3 (1.3-6.7) Absolute Nucleated RBC 0.000 K/mm3 (0.0-0.012) Nucleated RBC % 0.0 % (0.0-0.2) PT 14.6 Seconds (11.1-14.7) INR 1.1 APTT 35.4 Seconds (22.3-36.8) Sodium 140 mmol/L (137-145) Potassium 4.5 mmol/L (3.4-5.0) Chloride 104 mmol/L (98-107) Carbon Dioxide 24 mmol/L (22-30) Anion Gap 12 mmol/L (4-12) BUN 21 H mg/dL (9-20) Creatinine 1.00 mg/dL (0.7-1.3) Estim Creat Clear Calc 61 ml/min Estimated GFR > 60 (59 - ) Glucose 195 H mg/dL (65-110) POC Capillary Glucose 191 H mg/dl (65-105) Calcium 10.0 mg/dL (8.4-10.2) Patient hx anesthesia problems: none Family hx anesthesia problems: none Results Review: All pre-operative results and documents have been reviewed as part of the pre-operative evaluation. [facility] Past Medical History Medical History History of diabetes mellitus History of hypertension Surgical History Surgical History History of transurethral resection of bladder tumor (TURBT) Social History Social History (Reviewed
--- NOTE | 2024-01-29 11:41 | PC.NURSE ---
morning po meds late this am due to pt being NPO before surgery. Spoke to Pre-op nurse and pre-op nurse stated to hold PO meds this am as well. will give po meds when pt is back on floor, no longer NPO, and have orders to do so.
--- NOTE | 2024-01-29 11:50 | W.PM.PROC2 ---
Procedure Note - Detailed Date of Procedure 01/29/24 Pre-op Diagnosis Hematuria with clot retention Post-op Diagnosis Same Procedure Performed Cystoscopy, clot evacuation, cauterization bladder and urethral dilatation Surgeon Hugo Freeman MD Anesthesia General Description of Procedure patient brought to the operative suite where his 1st prepped draped in routine sterile fashion while in dorsal lithotomy position. After the uneventful induction of a general LMA anesthetic a had trouble getting a 24 F resectoscope in until I dilated his urethra from 20/2 F to 30 F. we placed a 24 F resectoscope. Clot was evacuated with a Dejuan syringe. There was some oozing from the right lateral bladder wall res had a recent resection. I cauterized the base of that with the rollerball as well as cauterizing the contralateral side where he had additional resection. Resectoscope was removed and a 22 F hematuria catheter was placed to drainage. Efflux was clear at the termination. Patient was taken recovery room. Continuous irrigation had been started. Urine Output 300
[2024-01-29] MEDS: LACTATED RINGERS 1,000 ML 30 ML IV CONT (11:57)
[2024-01-29 12:16] LABS: Glucose Point of Care 152 mg/dl (65-105)
[2024-01-29] MEDS: ATORVASTATIN 40 MG TABLET PO (16:34)
[2024-01-29] MEDS: TAMSULOSIN HCL 0.4 MG CAPSULE PO (16:34)
[2024-01-29] MEDS: PANTOPRAZOLE 40 MG TABLET PO (16:35)
[2024-01-29] MEDS: GABAPENTIN 300 MG CAPSULE PO (16:35)
[2024-01-29] MEDS: lisinopriL 2.5 MG TABLET PO (16:35)
[2024-01-29 16:58] LABS: Glucose Point of Care 183 mg/dl (65-105)
[2024-01-29 20:14] LABS: Glucose Point of Care 253 mg/dl (65-105)
[2024-01-30 04:00] VITALS: BP 101/54; PULSE 67; RESP 16; TEMP 36.3; O2SAT 98
--- NOTE | 2024-01-30 06:44 | WPDUROPN2 ---
Progress Note: A&P Assessment and Plan (1) Gross hematuria: Code(s): R31.0 - Gross hematuria Status: Acute Assessment and Plan: Urine clear on slow CBI this morning. Will stop drip now a planned voiding trial later this morning if urine remains clear Subjective Subjective Date/Time Seen: 01/30/24 06:44 Interval history: Comfortable, urine clear Review of Systems Cardiovascular: Cardiovascular: Denies chest pain, Denies lightheadedness, Denies palpitations and Denies dyspnea Respiratory: Respiratory: Denies dyspnea Gastrointestinal: Gastrointestinal: Denies diarrhea, Denies nausea and Denies vomiting Genitourinary: Genitourinary: Denies hematuria and Denies dysuria Endocrine: Endocrine: Denies palpitations Exam Const: General: no acute distress Resp: Effort & Inspection: normal respiratory effort GI: Inspection: non-distended GI Palp: No abdominal tenderness and No Guarding due to palpation present (GI) Auscultation: normal bowel sounds Urinary Catheter: Urinary Catheter: patent and draining and urine clear Objective Data Vital Signs Vital Signs: Vital Signs - 24 hr 01/29/24 08:00 01/29/24 10:34 01/29/24 11:57 Temperature 97.3 F L 97.2 F L Pulse Rate 83 64 Respiratory Rate 14 16 Blood Pressure 135/69 136/56 L Pulse Oximetry 95 100 Oxygen Delivery Room Air Room Air Nasal Cannula Oxygen Flow Rate 6 01/29/24 12:00 01/29/24 12:15 01/29/24 12:22 Temperature Pulse Rate 63 64 Respiratory Rate 16 16 Blood Pressure 145/67 H 139/58 L Pulse Oximetry 100 100 100 Oxygen Delivery Nasal Cannula Nasal Cannula Room Air Oxygen Flow Rate 2 2 01/29/24 12:30 01/29/24 12:45 01/29/24 13:00 Temperature Pulse Rate 65 66 73 Respiratory Rate 16 16 16 Blood Pressure 125/55 L 136/60 133/61 Pulse Oximetry 97 97 98 Oxygen Delivery Room Air Room Air Room Air Oxygen Flow Rate 01/29/24 13:35 01/29/24 14:22 01/29/24 20:17 Temperature 97.1 F L 97.3 F L 97.7 F Pulse Rate 67 68 68 Respiratory Rate 16 16 16 Blood Pressure 149/71 H 137/74 112/55 L Pulse Oximetry 97 98 99 Oxygen Delivery Oxygen Flow Rate 01/29/24 23:28 01/30/24 04:00 Temperature 97.1 F L 97.3 F L Pulse Rate 58 L 67 Respiratory Rate 16 16 Blood Pressure 105/56 L 101/54 L Pulse Oximetry 98 98 Oxygen Delivery Oxygen Flow Rate Intake/Output Intake/Output: Intake & Output 01/27/24 01/28/24 01/29/24 01/30/24 23:59 23:59 23:59 23:59 Intake Total 2290 200 Output Total 13170 Balance -96570 200 Meds/Results Medications: Active Medications Generic Name Dose Route Start Last Admin Trade Name Freq PRN Reason Stop Dose Admin Atorvastatin Calcium 40 mg 01/29/24 09:00 01/29/24 16:34 Atorvastatin 40 Mg Tablet PO 40 mg DAILY KIMBERLYN Administration Dextrose 12.5 gm 01/29/24 07:58 Dextrose 50% 25 Gm/50 Ml Syringe IV PUSH PRN PRN Hypoglycemia Protocol Fentanyl Citrate 25 mcg 01/29/24 11:10 Fentanyl Citrate Inj (*Crx) 100 Mcg/2 Ml Vial IV PUSH Q2M PRN Pain Gabapentin 300 mg 01/29/24 09:00 01/29/24 16:35 Gabapentin 300 Mg Capsule PO 300 mg BID KIMBERLYN Administration Glucagon 1 mg 01/29/24 07:58 Glucagon For Inj 1 Mg Vial IM PRN PRN Hypoglycemia Protocol Glucose 15 gm 01/29/24 07:58 Glucose Oral Gel 15 Gm Of Glucse In 37.5 Gm Tube PO PRN PRN Hypoglycemia Protocol Linezolid 600 mg in 300 mls @ 300 mls/hr 01/29/24 21:00 01/29/24 21:14 Zyvox IVPB 300 mls/hr Q12HR KIMBERLYN Administration Dextrose 1,000 mls @ 100 mls/hr 01/29/24 07:58 Dextrose 5% 1,000 Ml IVPB PRN PRN Hypoglycemia Protocol Lactated Ringer's 1,000 mls @ 30 mls/hr 01/29/24 11:10 01/29/24 13:10 Lr - Lactated Ringers Iv IV CONT Infused .Q24H KIMBERLYN Infusion Lactated Ringer's 1,000 mls @ 30 mls/hr 01/29/24 11:10 01/29/24 18:21 Lr - Lactated Ringers Iv IV CONT Not Given .Q24H
[2024-01-30 08:00] VITALS: BP 103/56; PULSE 66; RESP 16; TEMP 36.6; O2SAT 97
[2024-01-30 08:23] LABS: Glucose Point of Care 124 mg/dl (65-105)
[2024-01-30] MEDS: GABAPENTIN 300 MG CAPSULE PO (08:46)
[2024-01-30] MEDS: ATORVASTATIN 40 MG TABLET PO (08:46)
[2024-01-30] MEDS: lisinopriL 2.5 MG TABLET PO (08:46)
[2024-01-30] MEDS: TAMSULOSIN HCL 0.4 MG CAPSULE PO (08:46)
[2024-01-30] MEDS: PANTOPRAZOLE 40 MG TABLET PO (08:46)
[2024-01-30] MEDS: LINEZOLID 600 MG/300 ML 600 MG/300 ML SOLN 300 MG IVPB (08:50)
--- NOTE | 2024-01-30 09:05 | PM.IMPN ---
Progress Note: A&P Assessment and Plan (1) Urinary tract infection: Qualifiers: Hematuria presence: with hematuria Urinary tract infection type: acute cystitis Qualified Code(s): N30.01 - Acute cystitis with hematuria Code(s): N39.0 - Urinary tract infection, site not specified Status: Acute (2) VRE (vancomycin-resistant Enterococci): Code(s): A49.1 - Streptococcal infection, unspecified site; Z16.21 - Resistance to vancomycin Status: Acute (3) Gross hematuria: Code(s): R31.0 - Gross hematuria Status: Acute (4) Essential hypertension: Code(s): I10 - Essential (primary) hypertension Status: Acute (5) GERD (gastroesophageal reflux disease): Code(s): K21.9 - Gastro-esophageal reflux disease without esophagitis Status: Acute Plan gross hematuria, pt underwent cystoscopy with TURBT and urethral dilation with Dr. Freeman on 01/15. consult urologist for evaluation treatment s/p Cystoscopy, clot evacuation, cauterization bladder and urethral dilatation d1. patient denies dysuria, gross hematuria has resolved. complicated UTI recent TURP surgical procedure and urethral dilatation urine culture grew out VRE patient was on cefdinir, start Zyvox 600 mg q.12 hour repeated urine culture 01/28 pending report patient need to follow with primary care doctor urologist transition to Zyvox 600 mg q.12 hours p.o. paroxysmal AFib Hold Eliquis p.o. resume Eliquis evaluate is okay for urologist type 2 diabetes hold home medications Start insulin sliding scale a.c. q.h.s. essential hypertension Continue Soraya is no per 2.5 mg daily p.o. GERD Continue omeprazole 20 mg b.i.d. p.o. urology evaluated patient today and agreed to discharge patient Subjective Date/time seen: 01/30/24 09:05 Interval history: I saw exam patient today, patient denies abdomen pain, dysuria, urethral catheter is removed. patient has some night pain urine. patient afebrile, blood pressure stable Exam Narrative: General: Awake, alert, comfortable, no acute distress HEENT: Normocephalic, atraumatic, sclerae anicteric Respiratory: Normal respiratory effort, no accessory muscle use Abdomen: Nondistended, soft, nontender Skin: Normal coloration, warm and dry Neurologic: No focal neuro deficits noted Psychiatric: Appropriate mood and affect, judgment and insight intact Objective Data Vital Signs Vital Signs: Vital Signs - 24 hr 01/29/24 10:34 01/29/24 11:57 01/29/24 12:00 Temperature 97.3 F L 97.2 F L Pulse Rate 83 64 63 Respiratory Rate 14 16 16 Blood Pressure 135/69 136/56 L 145/67 H Pulse Oximetry 95 100 100 Oxygen Delivery Room Air Nasal Cannula Nasal Cannula Oxygen Flow Rate 6 2 01/29/24 12:15 01/29/24 12:22 01/29/24 12:30 Temperature Pulse Rate 64 65 Respiratory Rate 16 16 Blood Pressure 139/58 L 125/55 L Pulse Oximetry 100 100 97 Oxygen Delivery Nasal Cannula Room Air Room Air Oxygen Flow Rate 2 01/29/24 12:45 01/29/24 13:00 01/29/24 13:35 Temperature 97.1 F L Pulse Rate 66 73 67 Respiratory Rate 16 16 16 Blood Pressure 136/60 133/61 149/71 H Pulse Oximetry 97 98 97 Oxygen Delivery Room Air Room Air Oxygen Flow Rate 01/29/24 14:22 01/29/24 20:17 01/29/24 23:28 Temperature 97.3 F L 97.7 F 97.1 F L Pulse Rate 68 68 58 L Respiratory Rate 16 16 16 Blood Pressure 137/74 112/55 L 105/56 L Pulse Oximetry 98 99 98 Oxygen Delivery Oxygen Flow Rate 01/30/24 04:00 01/30/24 08:00 Temperature 97.3 F L 97.8 F Pulse Rate 67 66 Respiratory Rate 16 16 Blood Pressure 101/54 L 103/56 L Pulse Oximetry 98 97 Oxygen Delivery Oxygen Flow Rate Intake/Output Intake/Output: Intake & Output 01/27/24 01/28/24 01/29/24 01/30/24 23:59 23:59 23:59 23:59 Intake Total 2590 200 Output Total 32927 1250 Balance -54515 -5982 Meds/Results Medications: Active Medications Gener
[2024-01-30 11:51] LABS: Glucose Point of Care 212 mg/dl (65-105)
[2024-01-30 12:00] VITALS: BP 118/82; PULSE 78; RESP 18; TEMP 36.5; O2SAT 97
--- NOTE | 2024-01-30 12:39 | WPDANESPN ---
Anes - Prog Note Post-Op Date/Time: 01/30/24 12:39 Cardiovascular status: normal Respiratory status: normal Airway patency: baseline Mental status: baseline Post-Op hydration status: normal Vital Signs: Last Vital Signs Temp 97.7 F 01/30/24 12:00 Pulse 78 01/30/24 12:00 Resp 18 01/30/24 12:00 BP 118/82 01/30/24 12:00 Pulse Ox 97 01/30/24 12:00 O2 Del Method Room Air 01/29/24 13:00 O2 Flow Rate 2 01/29/24 12:15 Pain Score (VAS): 0/10 I/O: Intake & Output 01/29/24 01/30/24 01/30/24 23:59 07:59 15:59 Intake Total 1140 200 240 Output Total 55542 1250 200 Balance -62377 -1050 40 Laboratory Tests 01/29/24 02:02 01/29/24 02:02 01/29/24 01/29/24 01/29/24 03:26 16:52 19:49 POC Capillary Glucose 183 H 253 H Urine Color Pending Urine Appearance Pending Urine pH Pending Ur Specific [place] Pending Urine Protein Pending Urine Glucose (UA) Pending Urine Ketones Pending Ur Blood (Man) Pending Urine Nitrate Pending Urine Bilirubin Pending Urine Urobilinogen Pending Leukocyte Esterase Rfl Pending 01/30/24 01/30/24 07:56 11:47 POC Capillary Glucose 124 H 212 H Urine Color Urine Appearance Urine pH Ur Specific [place] Urine Protein Urine Glucose (UA) Urine Ketones Ur Blood (Man) Urine Nitrate Urine Bilirubin Urine Urobilinogen Leukocyte Esterase Rfl Microbiology 01/29/24 04:50 Blood Blood Culture - Preliminary 01/29/24 04:50 Blood Blood Culture - Preliminary Post-procedural complaints: none Patient Feedback: Patient satisfied with anesthetic care.
--- NOTE | 2024-01-30 14:18 | PM.DS ---
DS: Admitting Diagnosis Discharge Date 01/30/24 Admitting Diagnosis (1) Urinary tract infection: ?Qualifiers: ?Hematuria presence:?with hematuria??Urinary tract infection type:?acute cystitis? Qualified Code(s):?N30.01 - Acute cystitis with hematuria ?Code(s): N39.0 - Urinary tract infection, site not specified ?Status:?Acute (2) VRE (vancomycin-resistant Enterococci): ?Code(s): A49.1 - Streptococcal infection, unspecified site; Z16.21 - Resistance to vancomycin ?Status:?Acute (3) Gross hematuria: ?Code(s): R31.0 - Gross hematuria ?Status:?Acute (4) Essential hypertension: ?Code(s): I10 - Essential (primary) hypertension ?Status:?Acute (5) GERD (gastroesophageal reflux disease): ?Code(s): K21.9 - Gastro-esophageal reflux disease without esophagitis ?Status:?Acute DS: Discharge Diagnosis Discharge Diagnosis (1) Urinary tract infection: Qualifiers: Hematuria presence: with hematuria Urinary tract infection type: acute cystitis Qualified Code(s): N30.01 - Acute cystitis with hematuria Code(s): N39.0 - Urinary tract infection, site not specified Status: Acute (2) VRE (vancomycin-resistant Enterococci): Code(s): A49.1 - Streptococcal infection, unspecified site; Z16.21 - Resistance to vancomycin Status: Acute (3) Gross hematuria: Code(s): R31.0 - Gross hematuria Status: Acute (4) Essential hypertension: Code(s): I10 - Essential (primary) hypertension Status: Acute (5) GERD (gastroesophageal reflux disease): Code(s): K21.9 - Gastro-esophageal reflux disease without esophagitis Status: Acute DS: Summary Hospital Course Hospital Course: Patient is a 78-year-old male with history of diabetes hypertension, GERD, anxiety, on Eliquis 5 mg ? with chief complaint of a bleeding from his penis.? pt underwent cystoscopy with TURBT and urethral dilation with Dr. Freeman on 01/15.? Patient reports over the last several days, he has had intermittent hematuria and dysuria.? He was seen in the ED here on 01/24 and diagnosed with urinary tract infection, given rocephin in the ED, started on cefdinir.? Per records, urine culture grew out VRE.? Patient reports ongoing hematuria to the point he is dripping blood of his penis today.?? patient has suprapubic pain, denies chest pain, shortness breast, headache, fever chills upon arrival to ED, patient afebrile, blood pressure stable, no pulse ox desaturation on room air, the following medical issues have been addressed during hospitalization gross hematuria, pt underwent cystoscopy with TURBT and urethral dilation with Dr. Freeman on 01/15. consult urologist for evaluation treatment s/p Cystoscopy, clot evacuation, cauterization bladder and urethral dilatation d1. patient denies dysuria, gross hematuria has resolved. complicated UTI recent TURP surgical procedure and urethral dilatation urine culture grew out VRE patient was on cefdinir, start Zyvox 600 mg q.12 hour repeated urine culture 01/28 pending report patient need to follow with primary care doctor urologist transition to Zyvox 600 mg q.12 hours p.o. paroxysmal AFib Hold Eliquis p.o. resume Eliquis evaluate is okay for urologist type 2 diabetes hold home medications Start insulin sliding scale a.c. q.h.s. essential hypertension Continue Soraya is no per 2.5 mg daily p.o. GERD Continue omeprazole 20 mg b.i.d. p.o. urology evaluated patient today and agreed to discharge patient Time Spent with Patient Time attestation: Total time spent providing and/or coordinating discharge services: Exam Narrative: General: Awake, alert, comfortable, no acute distress HEENT: Normocephalic, atraumatic, sclerae anicteric Respiratory: Normal respiratory effort, no accessory muscle use Abdomen: Nondistended, soft, nontender Skin: Normal coloration, warm and dry Neurolog
== END 2024-01-30 15:35 | disposition home or self-care (01) ==
LOC: ANHED 01-29 02:41 → ANH3MEDSUR 01-29 07:46
PROVIDERS: Urology; Admitting Provider Internal Medicine; Emergency Provider Physician Assistant; PCP Internal Medicine; Visit Provider Hospitalist
PROC: 0TCB8ZZ Extirpation of Matter from Bladder, Via Natural or Artificial Opening Endoscopic (ICD-10-PCS; CPT 52001; principal; 2024-01-29 11:45)
DX: N30.01 Acute cystitis with hematuria (principal); A49.1 Streptococcal infection, unspecified site; Z16.21 Resistance to vancomycin; E11.9 Type 2 diabetes mellitus without complications; I48.0 Paroxysmal atrial fibrillation; I10 Essential (primary) hypertension; K21.9 Gastro-esophageal reflux disease without esophagitis; Z87.891 Personal history of nicotine dependence; Z79.891 Long term (current) use of opiate analgesic; Z79.01 Long term (current) use of anticoagulants; Z79.82 Long term (current) use of aspirin; Z79.85 Long-term (current) use of injectable non-insulin antidiabetic drugs; Z79.84 Long term (current) use of oral hypoglycemic drugs
CPT/HCPCS: 52234; 36415; 74176; 80048; 82948; 85025; 85610; 85730; 87040; 87086; 96361; 96365; 96375; 96376; 99285; A9270; C1757; G0378; J1100; J2020; J2250; J2270; J2405; J2704; J3010; J7030; J7120

== ENCOUNTER 2024-03-29 17:37 | Observation (INO) | payer MEDICARE, MEDICAID, SELFPAY ==
[2024-03-29] VITALS (13 sets, daily range): BP systolic 112–121; BP diastolic 65–84; PULSE 61–75; RESP 12–20; TEMP 36.6–36.7; O2SAT 93–98
--- NOTE | ~2024-03-29 | CT_ITS ---
EXAMINATION: CT abdomen pelvis wo con DATE: 03/29/2024 19:28 INDICATION: suprapubic pain, R flank pain, hematuria TECHNIQUE: Computed tomography (CT) of the abdomen and pelvis was performed without intravenous contr ast. Automated exposure control and iterative reconstruction technique were employed. The dose-length product was 629.44 mGy-cm. COMPARISON: 01/29/2024. FINDINGS: Lower thorax: Stable right pleural thickening and rounded atelectasis. Liver: Normal. Biliary/Gallbladder: Gallbladder is absent. Dropped/displaced surgical clip near the inferior margin of the liver. No bile duct dilation. Pancreas: No mass or duct dilation. Spleen: Normal. Adrenals:No mass. Kidneys: Nonobstructing left lower pole calcifications. No suspicious mass. Moderate right and mild l eft hydronephrosis. GI tract: No small or large bowel dilation. Normal appendix. Diverticulosis without diverticulitis. Mesentery/Peritoneum: No ascites, mass, or free air. Retroperitoneum: No mass. Pelvis: Bladder wall thickening with surrounding inflammatory change. Soft Tissues: Uncomplicated fat-containing bilateral inguinal hernias. Soft tissues and body wall oth erwise unremarkable. Bones: No acute osseous finding. 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 IMPRESSION: Moderate right and mild left hydronephrosis, no obstructing stone detected, may be secondary to chron ic outlet obstruction. Correlate for findings of urinary retention. Ascending infection should be con sidered in the differential. Cystitis. Reviewed, dictated and finalized at location K. IMPRESSION: Moderate right and mild left hydronephrosis, no obstructing stone detected, may be secondary to chronic outlet obstruction. Correlate for findings of urinary retention. Ascending infection should be considered in the differential. Cystitis.
--- NOTE | 2024-03-29 18:38 | ED.GENADULT ---
HPI - General Adult General Chief complaint: Urogenital-Male <Louis Suthreland PA-C - Last Filed: 03/29/24 23:43> Stated complaint: urinating blood <Louis Sutherland PA-C - Last Filed: 03/29/24 23:43> Time Seen by Provider: 03/29/24 18:25 <Louis Sutherland PA-C - Last Filed: 03/29/24 23:43> Source: patient <MARGARITO Morrell Last Filed: 03/29/24 23:43> Mode of arrival: ambulatory <MARGARITO Morrell Last Filed: 03/29/24 23:43> Limitations: no limitations <MARGARITO Morrell Last Filed: 03/29/24 23:43> History of Present Illness HPI narrative: This is a 78-year-old male who presents to the ED with chief complaint of hematuria that started around midnight and got worse at 7:00 a.m. reports that since then he has started to have suprapubic pain, pressure. Reports the pain radiates to the right flank. Reports the urine this morning started is light pink but is now pure red. He states the last time this happened was back in January when he had a urinary tract infection for which he had to take linezolid. He grew out VRE according to chart review. He is also on Eliquis regularly. Surgical history: TURBT and gemcitabine installation on 01/16/2024. has followed with Dr. Freeman <Louis Sutherland PA-C - Last Filed: 03/29/24 23:43> Related Data Home medications: Home Medications Medication Instructions Recorded Confirmed apixaban 5 mg tablet (Eliquis) 5 mg PO BID 01/13/24 03/29/24 aspirin 81 mg tablet,delayed 81 mg PO DAILY 01/13/24 03/29/24 release (Adult Low Dose Aspirin) atorvastatin 80 mg tablet 40 mg PO DAILY 01/13/24 03/29/24 dulaglutide 1.5 mg/0.5 mL 1.5 mg subcut WEEKLY 01/13/24 03/29/24 subcutaneous pen injector ([facility]) lisinopril 2.5 mg tablet 2.5 mg PO DAILY 01/13/24 03/29/24 mirabegron 50 mg tablet,extended 50 mg PO DAILY 01/13/24 03/29/24 release 24 hr (Myrbetriq) omeprazole 20 mg capsule,delayed 20 mg PO BID 01/13/24 03/29/24 release tamsulosin 0.4 mg capsule 0.4 mg PO DAILY 01/13/24 03/29/24 gabapentin 300 mg capsule 300 mg PO BID 01/29/24 03/29/24 <Louis Sutherland PA-C - Last Filed: 03/29/24 23:43> Allergies/adverse reactions: Allergies Allergy/AdvReac Type Severity Reaction Status Date / Time iodine Allergy Rash Verified 01/29/24 02:40 Penicillins Allergy Swelling Verified 01/29/24 08:14 amitriptyline AdvReac Other Verified 01/25/24 12:05 codeine AdvReac Confusion Verified 01/25/24 12:05 morphine AdvReac Nausea and Verified 01/25/24 12:05 Vomiting <Louis Sutherland PA-C - Last Filed: 03/29/24 23:43> Review of Systems Review of Systems: All systems as dictated in HPI <Louis Sutherland PA-C - Last Filed: 03/29/24 23:43> [facility] Past Medical History Medical History: Medical History History of diabetes mellitus History of hypertension VTE (venous thromboembolism) <MARGARITO Morrell Last Filed: 03/29/24 23:43> Surgical History Surgical History: Surgical History History of transurethral resection of bladder tumor (TURBT) <MARGARITO Morrell Last Filed: 03/29/24 23:43> Family History Family History: Family History Father Diabetes mellitus Sibling Diabetes mellitus Mother Congestive heart disease <MARGARITO Morrell Last Filed: 03/29/24 23:43> Social History Social History: Social History Smoking packs per day: 0.5 Smoking cigarettes per day: 10.0 Years smoked: 20 Smoking pack-years: 10.00 Smoking status: Former smoker Alcohol intake: former Substance use type: does not use Do You Feel Safe in your Home?: Yes Lack of Transportation: No Lack of Food: Never True Current Housing: I Have Housing Concerned About Future H
[2024-03-29 18:59] LABS: Basophils Absolute Auto 0.1 K/mm3 (0.0-0.1); Basophils Percent Auto 0.7 % (0.2-1.2); Eosinophils Absolute Auto 0.2 K/mm3 (0-0.3); Eosinophils Percent Auto 2.5 % (0-4.4); Hematocrit 38.3 % (42.0-52.0); Hemoglobin 12.1 g/dL (14.0-18.0); Immature Granulocyte Absolute 0.01 K/mm3 (0.00-0.031); Immature Granulocyte Percent A 0.1 % (0-0.5); Lymphocytes Absolute Auto 2.43 K/mm3 (0.9-3.2); Lymphocytes Percent Auto 35.4 % (18.3-44.2); Mean Corpuscular HGB Conc 31.6 g/dl (32-36); Mean Corpuscular Hemoglobin 28.8 pg (26-34); Mean Corpuscular Volume 91.2 fl (80-100); Mean Platelet Volume 9.1 fl (7.4-10.4); Monocytes Absolute Auto 0.6 K/mm3 (0.1-0.6); Neutrophils Absolute Auto 3.6 K/mm3 (1.3-6.7); Neutrophils Percent Auto 52.3 % (45.5-73.1); Platelet Count Result 246 k/mm3 (150-375); Red Cell Distribution Width 14.7 % (11.5-14.5); White Blood Count 6.9 K/mm3 (4.5-10.0)
[2024-03-29 19:05] LABS: Bacteria Urine None Seen /hpf; Non Pathogenic Casts 0-2; RBC Urine >100 /hpf (0-2); Squamous Epithelial Cell Urine None Seen /hpf (Few); WBC Urine >100 /hpf (0-3)
[2024-03-29 19:10] LABS: Alanine Aminotransferase 15 U/L (6-50); Albumin Level 4.4 g/dL (3.5-5.1); Alkaline Phosphatase 120 U/L (38-126); Anion Gap 9 mmol/L (4-12); Aspartate Amino Transferase 20 U/L (17-59); Bilirubin,Total 0.4 mg/dL (0.2-1.3); Blood Urea Nitrogen 26 mg/dL (9-20); Calcium 9.6 mg/dL (8.4-10.2); Carbon Dioxide 27 mmol/L (22-30); Chloride 104 mmol/L (98-107); Estimated CRCL calculation 56 ml/min; Estimated Glomerular Filt Rate > 60; Glucose 106 mg/dL (65-110); Lipase 58 U/L (23-300); Potassium 4.3 mmol/L (3.4-5.0); Sodium 140 mmol/L (137-145)
[2024-03-29 19:12] LABS: Appearance Urine Cloudy (Clear); Bilirubin Urine Negative (Negative); Blood Urine 3+ (Negative); Color Urine Red (Yellow); Glucose Urine UA 3+ mg/dL (Negative); Ketones Urine Negative (Negative); Leukocyte Esterase Ur 2+ LEU/UL (Negative); Nitrate Urine Negative (Negative); Protein Urine 2+ mg/dL (Negative); Specific Grav Ur 1.023 (1.001-1.035); Urobilinogen Urine 0.2 mg/dL (<2.0); pH Urine 5.5 (5.0-9.0)
[2024-03-29 19:13] LABS: Add Urine Microscopic? YES
[2024-03-29 19:20] LABS: INR 1.1; Prothrombin Time 14.9 Seconds (11.1-14.7)
[2024-03-29 19:21] LABS: Partial Thromboplastin Time 35.8 Seconds (22.3-36.8)
--- NOTE | 2024-03-29 19:29 | PC.NURSE ---
Report received from BRANDON Stack. Assumed care of patient at this time.
[2024-03-29] MEDS: ONDANSETRON INJ 4 MG/2 ML VIAL IV PUSH (20:15)
[2024-03-29] MEDS: HYDROmorphone HCL INJ (*CRX) 1 MG/ML SYR 0.5 MG IV PUSH (20:17)
--- NOTE | 2024-03-29 22:13 | ADMGEN ---
This patient, Cosme Javier, was admitted to [facility] Surg Room 326-01. Patient/family oriented to hospital policies and general routines including ID bracelet, bed and alarms, visiting hours, pain management, procedures, bathroom and other care routines, personal items, smoking policy, room service/diet, and visiting hours. Information on how to activate the Rapid Response Team has been discussed. Patient/Family are encouraged to report perceived risks to care and to ask questions if they do not understand what they are told or what they should do.
--- NOTE | 2024-03-29 22:47 | ADMGEN ---
This patient, Cosme Javier, was admitted to [facility] Surg Room [id number]. Patient/family oriented to hospital policies and general routines including ID bracelet, bed and alarms, visiting hours, pain management, procedures, bathroom and other care routines, personal items, smoking policy, room service/diet, and visiting hours. Information on how to activate the Rapid Response Team has been discussed. Patient/Family are encouraged to report perceived risks to care and to ask questions if they do not understand what they are told or what they should do.
[2024-03-30 05:33] VITALS: BP 104/46; PULSE 58; RESP 16; TEMP 36.3; O2SAT 99; BMI 26.0
--- NOTE | 2024-03-30 06:13 | PM.IMHP ---
H&P: HPI History of Present Illness Date/Time: 03/30/24 06:13 Chief Complaint: hematuria Narrative: Patient is a 70-year-old male with past history type 2 diabetes, GERD, anxiety, history of DVT on Eliquis who presents to ED with complaints of hematuria. Patient has been dealing with hematuria since November 2023. he has seen Dr. Freeman before and has had a cystoscopy with TURBT and uretral dilation, bilateral retrograde pyelography, gemcitabine installation 01/15, then on 01/29/2024 cystoscopy and clot evacuation with cauterization of bladder and urethral dialation. his last hospitalization was from 01/28-01/29. it appears he has had a history of VRE that is resistant to ampicillin and vancomycin. it appears patient has a previous hemorrhage has been attributed to hemorrhagic cystitis. patient now returns with what he states was pure blood. when I evaluated patient in the morning it appears his urine has cleared up and he is no longer urinating blood. urinal does have some red tinge to the urine. denies any recent trauma , changes to medications, recent travels. in the ED: Patient hemoglobin 12.1, no leukocytosis, CMP within normal limits, UA shows cloudy red urine with 3+ blood and negative bilirubin, urine RBC greater than 100, urine WBC greater than 100, no bacteria seen. patient was started on Rocephin. patient being admitted for hematuria. Review of Systems Review of Systems: Constitutional: No Fever, No Chills, No Night Sweats, No Fatigue, No Malaise ENT/Mouth: No Hearing Changes, No Ear Pain, No Nasal Congestion, No Sinus Pain, No Hoarseness, No sore throat, No Rhinorrhea, No Swallowing Difficulty Eyes: No Eye Pain, No Redness, No Vision Changes Cardiovascular: No Chest Pain, No Palpitations, No Dyspnea on Exertion, No Orthopnea, No Claudication, No Edema Respiratory: No Cough, No Sputum, No Wheezing, No Shortness of Breath Gastrointestinal: No Nausea, No Vomiting, No Diarrhea, No Constipation, No Abdominal Pain, No Heartburn, No Hematochezia, No Melena Genitourinary: endorses dysuria, hematuria, incontinence Musculoskeletal: No Arthralgias, No Myalgias, No Joint Swelling, No Joint Stiffness, No Back Pain Skin: No Skin Lesions, No Pruritis, No Hair Changes Neuro: No Weakness, No Numbness, No Paresthesias, No Loss of Consciousness, No Syncope, No Dizziness, No Headache Psych: No Anxiety/Panic, No Depression, No Insomnia Heme: No Bruising, No Bleeding Lymph: No Adenopathy Endocrine: No Polyuria, No Polydipsia, No Temperature Intolerance PMF Past Medical History Medical History History of diabetes mellitus History of hypertension VTE (venous thromboembolism) Surgical History Surgical History History of transurethral resection of bladder tumor (TURBT) Family History Family History Father Diabetes mellitus Sibling Diabetes mellitus Mother Congestive heart disease Social History Social History Smoking packs per day: 0.5 Smoking cigarettes per day: 10.0 Years smoked: 20 Smoking pack-years: 10.00 Smoking status: Former smoker Alcohol intake: former Substance use type: does not use Do You Feel Safe in your Home?: Yes Lack of Transportation: No Lack of Food: Never True Current Housing: I Have Housing Concerned About Future Housing: No Difficulty Paying Gas/Electric Bills: No Difficulty Paying for Meds: No Currently Unemployed: No Education: High School Diploma/GED Difficulty w/ Childcare or Family Care: No Living arrangements: with family Spiritual care concerns: No Meds Home Medications and Allergies Home Medications Medication Instructions Recorded Confirmed Type apixaban 5 mg tablet (Eliquis) 5 mg PO BID 01/13/24 0
--- NOTE | 2024-03-30 06:17 | WPDURCON ---
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 This appears to be nonobstructive in nature in his serum creatinine remains stable Urology Consult Note HPI Date Seen: 03/30/24 Requesting Physician: Franklin Duong MD Primary Care Provider: Sahara Lee, Consult Narrative Narrative: Cosme Javier is a 78 year old male is well known our service with recent severe chronic cystitis vancomycin resistant Enterococcus requiring a prolonged admission approximately 2 months ago. At the time of evaluation and bladder biopsy revealed severe acute and chronic inflammation. He also has chronic bilateral hydronephrosis secondary to BPH/bladder wall thickening and J hooking of his distal ureters. Presented to the emergency department last night with moderate gross hematuria, pelvic and flank pain. He denied fevers chills or obstructive voiding symptoms. His postvoid residual was measured at less than 200 cc. Urinalysis suggested infected urine and. Given his recent history and hematuria we opted for admission pending cultures. Review of Systems Cardiovascular: Cardiovascular: Denies chest pain, Denies lightheadedness, Denies palpitations and Denies dyspnea Respiratory: Respiratory: Denies dyspnea Gastrointestinal: Gastrointestinal: Reports abdominal pain (mild pelvic and right flank pain), Denies diarrhea, Denies nausea and Denies vomiting Genitourinary: Genitourinary: Reports hematuria and Denies dysuria Endocrine: Endocrine: Denies palpitations PMFSH Past Medical History Medical History History of diabetes mellitus History of hypertension Surgical History Surgical History History of transurethral resection of bladder tumor (TURBT) Family History Family History (Updated 03/29/24 @ 23:04 by Marissa Turner RN) Father Diabetes mellitus Sibling Diabetes mellitus Mother Congestive heart disease Social History Social History Smoking packs per day: 0.5 Smoking cigarettes per day: 10.0 Years smoked: 20 Smoking pack-years: 10.00 Smoking status: Former smoker Alcohol intake: former Substance use type: does not use Do You Feel Safe in your Home?: Yes Lack of Transportation: No Lack of Food: Never True Current Housing: I Have Housing Concerned About Future Housing: No Difficulty Paying Gas/Electric Bills: No Difficulty Paying for Meds: No Currently Unemployed: No Education: High School Diploma/GED Difficulty w/ Childcare or Family Care: No Living arrangements: with family Spiritual care concerns: No Meds Home Medications and Allergies Home Medications Medication Instructions Recorded Confirmed Type apixaban 5 mg tablet (Eliquis) 5 mg PO BID 01/13/24 03/29/24 History aspirin 81 mg tablet,delayed 81 mg PO DAILY 01/13/24 03/29/24 History release (Adult Low Dose Aspirin) atorvastatin 80 mg tablet 40 mg PO DAILY 01/13/24 03/29/24 History dulaglutide 1.5 mg/0.5 mL 1.5 mg subcut WEEKLY 01/13/24 03/29/24 History subcutaneous pen injector ([facility]) lisinopril 2.5 mg tablet 2.5 mg PO DAILY 01/13/24 03/29/24 History mirabegron 50 mg tablet,extended 50 mg PO DAILY 01/13/24 03/29/24 History release 24 hr (Myrbetriq) omeprazole 20 mg capsule,de
[2024-03-30 07:13] LABS: Glucose Point of Care 130 mg/dl (65-105)
[2024-03-30] MEDS: DAPTOmycin 1,000 MG in SODIUM CHLORIDE 0.9% IV 50 ML 100 MG IVPB (07:19)
[2024-03-30] MEDS: TAMSULOSIN HCL 0.4 MG CAPSULE PO (08:39)
[2024-03-30] MEDS: GABAPENTIN 300 MG CAPSULE PO ×3 (08:39→16:40)
[2024-03-30] MEDS: lisinopriL 2.5 MG TABLET PO (08:39)
[2024-03-30] MEDS: MIRABEGRON 50 MG ER TABLET PO (08:42)
[2024-03-30] MEDS: ACETAMINOPHEN 325 MG TABLET 650 MG PO (08:42)
--- NOTE | 2024-03-30 08:43 | P.PNINF_ITS ---
Pharmacy ID Consult - Stewardship Interventions Type of Interventions: De-escalation, Labs - micro Pharmacy ID Note: Subjective Pharmacy was consulted by Luis Antonio Lew regarding infectious diseases for Cosme Javier. Cosme Javier is a 78 year old M with concerns regarding de- escalation for this potential cystitis. Background The patient is currently receiving daptomycin ~10-12 mg/kg D1. The patient's PMH includes hemorrhagic cystitis among other in provider notes. 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 Patient received linezolid outpatient shortly after that culture was obtained0 per their outpatient medication history. Urine culture obtained 03/29/24 and is pending. Assessment/Recommendation/Discussion Spoke briefly with consulting Dr. Gil with hospitalist (consulting) service. Wants to continue daptomycin, which is an appropriate empiric anti-VRE agent, during this stage of their course and will likely transition soon to linezolid given previous history of taking this medication and lack of treatment options for the management of VRE. Also informed provider that blood cultures have not been obtained since admission - provider to order. Will continue to follow. Thank you for the interesting consult. Gato Nolen, PharmD Infectious Disease/Antimicrobial Stewardship Pharmacist 03/30/24; 0843 WBC 6.9 K/mm3 (4.5-10.0) 03/29/24 18:50 Creatinine 1.10 mg/dL (0.7-1.3) 03/29/24 18:50 Estim Creat Clear Calc 56 ml/min 03/29/24 18:50
[2024-03-30] MEDS: PANTOPRAZOLE SOD SESQUIHYDRATE 20 MG TAB PO ×2 (08:45→20:47)
[2024-03-30 11:17] LABS: Glucose Point of Care 121 mg/dl (65-105)
[2024-03-30 14:00] VITALS: BP 105/50; PULSE 59; RESP 18; TEMP 35.9; O2SAT 99
[2024-03-30 16:13] LABS: Glucose Point of Care 111 mg/dl (65-105)
[2024-03-30 21:30] VITALS: BP 120/62; PULSE 56; RESP 16; TEMP 36.2; O2SAT 100
[2024-03-31 05:03] VITALS: BP 119/62; PULSE 63; RESP 16; TEMP 36.3; O2SAT 100
[2024-03-31] MEDS: DAPTOmycin 1,000 MG in SODIUM CHLORIDE 0.9% IV 50 ML 100 MG IVPB (06:13)
[2024-03-31 06:20] LABS: Basophils Absolute Auto 0.1 K/mm3 (0.0-0.1); Basophils Percent Auto 0.8 % (0.2-1.2); Eosinophils Absolute Auto 0.2 K/mm3 (0-0.3); Eosinophils Percent Auto 3.3 % (0-4.4); Hematocrit 38.8 % (42.0-52.0); Hemoglobin 12.2 g/dL (14.0-18.0); Immature Granulocyte Absolute 0.01 K/mm3 (0.00-0.031); Immature Granulocyte Percent A 0.2 % (0-0.5); Lymphocytes Absolute Auto 2.01 K/mm3 (0.9-3.2); Lymphocytes Percent Auto 33.5 % (18.3-44.2); Mean Corpuscular HGB Conc 31.4 g/dl (32-36); Mean Corpuscular Hemoglobin 29.7 pg (26-34); Mean Corpuscular Volume 94.4 fl (80-100); Mean Platelet Volume 9.5 fl (7.4-10.4); Monocytes Absolute Auto 0.4 K/mm3 (0.1-0.6); Monocytes Percent Auto 6.7 % (2.6-8.5); Neutrophils Absolute Auto 3.3 K/mm3 (1.3-6.7); Neutrophils Percent Auto 55.5 % (45.5-73.1); Platelet Count Result 217 k/mm3 (150-375); Red Blood Count 4.11 M/mm3 (4.6-6.20); Red Cell Distribution Width 14.6 % (11.5-14.5)
[2024-03-31 06:29] LABS: Anion Gap 6 mmol/L (4-12); Blood Urea Nitrogen 20 mg/dL (9-20); Calcium 9.1 mg/dL (8.4-10.2); Carbon Dioxide 32 mmol/L (22-30); Chloride 100 mmol/L (98-107); Estimated CRCL calculation 61 ml/min; Estimated Glomerular Filt Rate > 60; Glucose 110 mg/dL (65-110); Magnesium 2.1 mg/dL (1.6-2.3); Potassium 4.2 mmol/L (3.4-5.0); Sodium 138 mmol/L (137-145)
--- NOTE | 2024-03-31 06:44 | WPDUROPN2 ---
Progress Note: A&P Assessment and Plan (1) Urinary tract infection: Code(s): N39.0 - Urinary tract infection, site not specified Status: Acute (2) Gross hematuria: Code(s): R31.0 - Gross hematuria Status: Acute Assessment and Plan: Hematuria has resolved with treatment of urinary tract infection Андрей Nolne, PharmD input. Subjective Subjective Date/Time Seen: 03/31/24 06:44 Interval history: Comfortable, voiding well, urine clear Review of Systems Cardiovascular: Cardiovascular: Denies chest pain, Denies lightheadedness, Denies palpitations and Denies dyspnea Respiratory: Respiratory: Denies dyspnea Gastrointestinal: Gastrointestinal: Denies diarrhea, Denies nausea and Denies vomiting Genitourinary: Genitourinary: Denies hematuria and Denies dysuria Endocrine: Endocrine: Denies palpitations Exam Const: General: no acute distress Resp: Effort & Inspection: normal respiratory effort GI: Inspection: non-distended GI Palp: No abdominal tenderness and No Guarding due to palpation present (GI) Auscultation: normal bowel sounds Objective Data Vital Signs Vital Signs: Vital Signs - 24 hr 03/30/24 08:00 03/30/24 14:00 03/30/24 21:30 Temperature 96.6 F L 97.2 F L Pulse Rate 59 L 56 L Respiratory Rate 18 16 Blood Pressure 105/50 L 120/62 Pulse Oximetry 99 100 Oxygen Delivery Room Air 03/31/24 05:03 Temperature 97.3 F L Pulse Rate 63 Respiratory Rate 16 Blood Pressure 119/62 Pulse Oximetry 100 Oxygen Delivery Intake/Output Intake/Output: Intake & Output 03/28/24 03/29/24 03/30/24 03/31/24 23:59 23:59 23:59 23:59 Intake Total 50 770 500 Output Total 25 900 250 Balance 25 -130 250 Meds/Results Medications: Active Medications Generic Name Dose Route Start Last Admin Trade Name Freq PRN Reason Stop Dose Admin Acetaminophen 650 mg 03/29/24 21:12 03/30/24 08:42 Acetaminophen 325 Mg Tablet PO 650 mg Q4H PRN Administration Mild Pain (1-3) or Fever Atorvastatin Calcium 40 mg 03/30/24 09:00 Atorvastatin 40 Mg Tablet PO DAILY KIMBERLYN Gabapentin 300 mg 03/30/24 09:00 03/30/24 16:40 Gabapentin 300 Mg Capsule PO 300 mg TID KIMBERLYN Administration Hydromorphone HCl 0.5 mg 03/29/24 21:12 Hydromorphone Hcl Inj (*Crx) 1 Mg/Ml Syr IV PUSH Q4H PRN Pain Rated 7-10 Daptomycin 1,000 mg/ Sodium 50 mls @ 100 mls/hr 03/30/24 07:00 03/31/24 06:13 Chloride IVPB 100 mls/hr Q24H KIMBERLYN Administration Lisinopril 2.5 mg 03/30/24 09:00 03/30/24 08:39 Lisinopril 2.5 Mg Tablet PO 2.5 mg DAILY KIMBERLYN Administration Mirabegron 50 mg 03/30/24 09:00 03/30/24 08:42 Mirabegron 50 Mg Er Tablet PO 50 mg DAILY KIMBERLYN Administration Ondansetron HCl 4 mg 03/29/24 21:12 Ondansetron Inj 4 Mg/2 Ml Vial IV PUSH Q4H PRN Nausea Pantoprazole Sodium 20 mg 03/30/24 09:00 03/30/24 20:47 Pantoprazole Sod Sesquihydrate 20 Mg Tab PO 20 mg Q12HR KIMBERLYN Administration Tamsulosin HCl 0.4 mg 03/30/24 09:00 03/30/24 08:39 Tamsulosin Hcl 0.4 Mg Capsule PO 0.4 mg DAILY KIMBERLYN Administration Radiology Results: ITS Impressions Abdomen/Pelvis CT 03/29/24 19:40 IMPRESSION: Moderate right and mild left hydronephrosis, no obstructing stone detected, may be secondary to chronic outlet obstruction. Correlate for findings of urinary retention. Ascending infection should be considered in the differential. Cystitis. Labs Labs: Laboratory Results - last 24 hr 03/30/24 03/30/24 03/30/24 07:08 11:12 16:07 WBC RBC Hgb Hct MCV MCH MCHC RDW Plt Count MPV Immature Gran % (Auto) Neut % (Auto) Lymph % (Auto) [place] % (Auto) Eos % (Auto) Baso % (Auto) Lymph # (Auto) [place] # (Auto) Eos # (Auto) Baso # (Auto) Abs Immat Gran (auto) Absolute Neuts (auto) Absolute Nucleated RBC Nucleated R
[2024-03-31 07:27] LABS: Glucose Point of Care 106 mg/dl (65-105)
[2024-03-31] MEDS: lisinopriL 2.5 MG TABLET PO (09:23)
[2024-03-31] MEDS: MIRABEGRON 50 MG ER TABLET PO (09:23)
[2024-03-31] MEDS: TAMSULOSIN HCL 0.4 MG CAPSULE PO (09:23)
[2024-03-31] MEDS: GABAPENTIN 300 MG CAPSULE PO ×3 (09:23→16:51)
[2024-03-31] MEDS: PANTOPRAZOLE SOD SESQUIHYDRATE 20 MG TAB PO ×2 (09:23→20:45)
--- NOTE | 2024-03-31 10:51 | P.PNINF_ITS ---
Pharmacy ID Consult - Stewardship Interventions Type of Interventions: De-escalation Pharmacy ID Note: Spoke briefly with hospitalist provider again today - noted that the hemorrhagic portion of the hemorrhagic cystitis has stopped later yesterday so unsure of this is truly related to repeat infection. Noted that 01/24 urine culture showed VRE but subsequent culture on 01/28 did show no growth. No leukocytosis and patient remains afebrile. Daptomycin D2 --> PO Linezolid to finish 10 day course. Will sign off at this time. Thank you for the interesting consult. Gato Nolen, PharmD Infectious Disease/Antimicrobial Stewardship Pharmacist 03/31/24; 1051 WBC 6.0 K/mm3 (4.5-10.0) 03/31/24 05:44 Creatinine 1.00 mg/dL (0.7-1.3) 03/31/24 05:44 Estim Creat Clear Calc 61 ml/min 03/31/24 05:44 Initial consult note copied below for convenience Pharmacy ID Consult - Stewardship Interventions Type of Interventions: De-escalation, Labs - micro Pharmacy ID Note: Subjective Pharmacy was consulted by Luis Antonio Lew regarding infectious diseases for Cosme Javier. Cosme Javier is a 78 year old M with concerns regarding de- escalation for this potential cystitis. Background The patient is currently receiving daptomycin ~10-12 mg/kg D1. The patient's PMH includes hemorrhagic cystitis among other in provider notes. 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 Patient received linezolid outpatient shortly after that culture was obtained0 per their outpatient medication history. Urine culture obtained 03/29/24 and is pending. Assessment/Recommendation/Discussion Spoke briefly with consulting Dr. Gil with hospitalist (consulting) service. Wants to continue daptomycin, which is an appropriate empiric anti-VRE agent, during this stage of their course and will likely transition soon to linezolid given previous history of taking this medication and lack of treatment options for the management of VRE. Also informed provider that blood cultures have not been obtained since admission - provider to order.
[2024-03-31 11:19] LABS: Glucose Point of Care 116 mg/dl (65-105)
--- NOTE | 2024-03-31 11:52 | PM.IMPN ---
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 Freeman # chronic conditions - BPH: Flomax, mirabegron - GERD: Omeprazole - essential hypertension: Lisinopril - peripheral neuropathy: Gabapentin - hyperlipidemia: Atorvastatin, holding aspirin - type 2 diabetes: Trulicity - history of VT: Holding Eliquis with hematuria Diet: diabetic diet DVT prophylaxis: SCDs, no chemoprophylaxis with hematuria Code status: DNR Disposition: home in 1-2 days Time Spent With Patient Time: 35 minutes Subjective Date/time seen: 03/31/24 11:52 Interval history: Patient seen and examined. He is doing well no new complaints. His hematuria has completely resolved. He had another dose of daptomycin today, plan to switch to linezolid tomorrow. We are still awaiting urine cultures for definitive treatment plan. Patient denies fever, chills, nausea vomiting diarrhea, shortness of breath, dysuria. Review of Systems Review of Systems: 10 point ROS complete, negative other than what is specified in HPI. Exam Narrative: - GENERAL: pleasant older male in no acute distress. Well-nourished. - EYES: EOMI. Anicteric. - HENT: Moist mucous membranes. - LUNGS: Clear to auscultation bilaterally, no wheezing, rhonchi, or rales. - CARDIOVASCULAR: Regular rate and rhythm. No murmur. No JVD. - ABDOMEN: Soft, non-tender and non-distended. No palpable masses. - EXTREMITIES: No edema. Peripheral pulses 2+. Non-tender. - NEUROLOGIC: No focal neurological deficits. CN II-XII grossly intact. - PSYCHIATRIC: Awake, Alert and oriented x 3. Appropriate mood and affect. - SKIN: No rashes or lesions. Warm. - LYMPH: No cervical lymphadenopathy. Objective Data Vital Signs Vital Signs: Vital Signs - 24 hr 03/30/24 14:00 03/30/24 21:30 03/31/24 05:03 Temperature 35.9 C L 36.2 C L 36.3 C L Pulse Rate 59 L 56 L 63 Respiratory Rate 18 16 16 Blood Pressure 105/50 L 120/62 119/62 Pulse Oximetry 99 100 100 Intake/Output Intake/Output: Intake & Output 03/28/24 03/29/24 03/30/24 03/31/24 23:59 23:59 23:59 23:59 Intake Total 50 770 1216 Output Total 25 900 250 Balance 25 -130 966 Meds/Results Medications: Active Medications Generic Name Dose Route Start Last Admin Trade Name Freq PRN Reason Stop Dose Admin Acetaminophen 650 mg 03/29/24 21:12 03/30/24 08:42 Acetaminophen 325 Mg Tablet PO 650 mg Q4H PRN Administration Mild Pain (1-3) or Fever Atorvastatin Calcium 40 mg 03/30/24 09:00 Atorvastatin 40 Mg Tablet PO DAILY KIMBERLYN Gabapentin 300 mg 03/30/24 09:00 03/31/24 09:23 Gabapentin 300 Mg Capsule PO 300 mg TID KIMBERLYN Administration Hydromorphone HCl 0.5 mg 03/29/24 21:12 Hydromorphone Hcl Inj (*Crx) 1 Mg/Ml Syr IV PUSH Q4H PRN Pain Rated 7-10 Linezolid 600 mg 04/01/24 09:00 Linezolid 600 Mg Tablet PO 04/08/24 21:01 Q12HR KIMBERLYN Lisinopril 2.5 mg 03/30/24 09:00 03/31/24 09:23 Lisinopril 2.5 Mg Tablet PO 2.5 mg DAILY KIMBERLYN Administration Mirabegron 50 mg 03/30/24 09:00 03/31/24 09:23 Mirabegron 50 Mg Er Tablet PO 50 mg DAILY KIMBERLYN Administration Ondansetron HCl 4 mg 03/29/24 21:12 Ondanse
[2024-03-31 13:46] VITALS: BP 108/49; PULSE 58; RESP 18; TEMP 35.9; O2SAT 99
[2024-03-31 16:27] LABS: Glucose Point of Care 117 mg/dl (65-105)
[2024-03-31 19:53] LABS: Glucose Point of Care 147 mg/dl (65-105)
[2024-03-31 21:03] VITALS: BP 103/61; PULSE 58; RESP 16; TEMP 36.1; O2SAT 99
[2024-04-01 06:00] VITALS: BP 107/61; PULSE 72; RESP 16; TEMP 36.1; O2SAT 98
--- NOTE | 2024-04-01 06:13 | WPDUROPN2 ---
Progress Note: A&P Assessment and Plan (1) Urinary tract infection: Code(s): N39.0 - Urinary tract infection, site not specified Status: Acute Assessment and Plan: ID plans for Linazolid noted. Home anytime from my standpoint. I'll plan f/u 10-14 days and consider cystoscopy at that time. Subjective Subjective Date/Time Seen: 04/01/24 06:13 Interval history: Comfortable, continues to void without difficulty Review of Systems Review of Systems: All systems reviewed & are unremarkable except as noted in HPI and below Exam Const: General: no acute distress Resp: Effort & Inspection: normal respiratory effort GI: Inspection: non-distended GI Palp: No abdominal tenderness and No Guarding due to palpation present (GI) Auscultation: normal bowel sounds Objective Data Vital Signs Vital Signs: Vital Signs - 24 hr 03/31/24 13:46 03/31/24 21:03 Temperature 96.6 F L 96.9 F L Pulse Rate 58 L 58 L Respiratory Rate 18 16 Blood Pressure 108/49 L 103/61 Pulse Oximetry 99 99 Intake/Output Intake/Output: Intake & Output 03/29/24 03/30/24 03/31/24 04/01/24 23:59 23:59 23:59 23:59 Intake Total 50 770 1678 Output Total 25 900 250 Balance 25 -130 1428 Meds/Results Medications: Active Medications Generic Name Dose Route Start Last Admin Trade Name Freq PRN Reason Stop Dose Admin Acetaminophen 650 mg 03/29/24 21:12 03/30/24 08:42 Acetaminophen 325 Mg Tablet PO 650 mg Q4H PRN Administration Mild Pain (1-3) or Fever Atorvastatin Calcium 40 mg 03/30/24 09:00 Atorvastatin 40 Mg Tablet PO DAILY KIMBERLYN Gabapentin 300 mg 03/30/24 09:00 03/31/24 16:51 Gabapentin 300 Mg Capsule PO 300 mg TID KIMBERLYN Administration Hydromorphone HCl 0.5 mg 03/29/24 21:12 Hydromorphone Hcl Inj (*Crx) 1 Mg/Ml Syr IV PUSH Q4H PRN Pain Rated 7-10 Linezolid 600 mg 04/01/24 09:00 Linezolid 600 Mg Tablet PO 04/08/24 21:01 Q12HR KIMBERLYN Lisinopril 2.5 mg 03/30/24 09:00 03/31/24 09:23 Lisinopril 2.5 Mg Tablet PO 2.5 mg DAILY KIMBERLYN Administration Mirabegron 50 mg 03/30/24 09:00 03/31/24 09:23 Mirabegron 50 Mg Er Tablet PO 50 mg DAILY KIMBERLYN Administration Ondansetron HCl 4 mg 03/29/24 21:12 Ondansetron Inj 4 Mg/2 Ml Vial IV PUSH Q4H PRN Nausea Pantoprazole Sodium 20 mg 03/30/24 09:00 03/31/24 20:45 Pantoprazole Sod Sesquihydrate 20 Mg Tab PO 20 mg Q12HR KIMBERLYN Administration Tamsulosin HCl 0.4 mg 03/30/24 09:00 03/31/24 09:23 Tamsulosin Hcl 0.4 Mg Capsule PO 0.4 mg DAILY KIMBERLYN Administration Radiology Results: ITS Impressions Abdomen/Pelvis CT 03/29/24 19:40 IMPRESSION: Moderate right and mild left hydronephrosis, no obstructing stone detected, may be secondary to chronic outlet obstruction. Correlate for findings of urinary retention. Ascending infection should be considered in the differential. Cystitis. Labs Labs: Laboratory Results - last 24 hr 03/31/24 03/31/24 03/31/24 05:44 07:22 11:15 WBC 6.0 RBC 4.11 L Hgb 12.2 L Hct 38.8 L MCV 94.4 MCH 29.7 MCHC 31.4 L RDW 14.6 H Plt Count 217 MPV 9.5 Immature Gran % (Auto) 0.2 Neut % (Auto) 55.5 Lymph % (Auto) 33.5 [place] % (Auto) 6.7 Eos % (Auto) 3.3 Baso % (Auto) 0.8 Lymph # (Auto) 2.01 [place] # (Auto) 0.4 Eos # (Auto) 0.2 Baso # (Auto) 0.1 Abs Immat Gran (auto) 0.01 Absolute Neuts (auto) 3.3 Absolute Nucleated RBC 0.000 Nucleated RBC % 0.0 Sodium 138 Potassium 4.2 Chloride 100 Carbon Dioxide 32 H Anion Gap 6 BUN 20 Creatinine 1.00 Estim Creat Clear Calc 61 Estimated GFR > 60 Glucose 110 POC Capillary Glucose 106 H 116 H Calcium 9.1 Magnesium 2.1 03/31/24 03/31/24 16:25 19:34 WBC RBC Hgb Hct MCV MCH MCHC RDW Plt Count MPV Immature Gran % (Auto) Neut % (Auto)
[2024-04-01 07:09] LABS: Anion Gap 6 mmol/L (4-12); Blood Urea Nitrogen 21 mg/dL (9-20); Calcium 9.2 mg/dL (8.4-10.2); Carbon Dioxide 30 mmol/L (22-30); Chloride 102 mmol/L (98-107); Estimated CRCL calculation 61 ml/min; Estimated Glomerular Filt Rate > 60; Glucose 116 mg/dL (65-110); Potassium 4.3 mmol/L (3.4-5.0); Sodium 138 mmol/L (137-145)
[2024-04-01 07:13] LABS: Basophils Percent Auto 0.6 % (0.2-1.2); Eosinophils Absolute Auto 0.2 K/mm3 (0-0.3); Eosinophils Percent Auto 2.7 % (0-4.4); Hematocrit 40.6 % (42.0-52.0); Hemoglobin 12.7 g/dL (14.0-18.0); Immature Granulocyte Absolute 0.03 K/mm3 (0.00-0.031); Immature Granulocyte Percent A 0.4 % (0-0.5); Lymphocytes Absolute Auto 2.01 K/mm3 (0.9-3.2); Lymphocytes Percent Auto 30.1 % (18.3-44.2); Mean Corpuscular HGB Conc 31.3 g/dl (32-36); Mean Corpuscular Volume 92.7 fl (80-100); Mean Platelet Volume 9.3 fl (7.4-10.4); Monocytes Absolute Auto 0.5 K/mm3 (0.1-0.6); Monocytes Percent Auto 6.9 % (2.6-8.5); Neutrophils Percent Auto 59.3 % (45.5-73.1); Platelet Count Result 226 k/mm3 (150-375); Red Blood Count 4.38 M/mm3 (4.6-6.20); Red Cell Distribution Width 14.4 % (11.5-14.5); White Blood Count 6.7 K/mm3 (4.5-10.0)
--- NOTE | 2024-04-01 07:23 | PM.DS ---
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 Freeman # chronic conditions - BPH: Flomax, mirabegron - GERD: Omeprazole - essential hypertension: Lisinopril - peripheral neuropathy: Gabapentin - hyperlipidemia: Atorvastatin, holding aspirin - type 2 diabetes: Trulicity - history of VT: Holding Eliquis with hematuria Diet: diabetic diet DVT prophylaxis: SCDs, no chemoprophylaxis with hematuria Code status: DNR Disposition: home in 1-2 days DS: Summary Hospital Course Hospital Course: Patient 70-year-old male with a past medical history of type 2 diabetes, GERD, anxiety, DVT with Eliquis, BPH who presented to the ED with complaints dysuria that he has been dealing with off and on since 2023. Dr. Roland was consulted and recommends follow-up in the office in 14 days. Urine culture did come back negative for any infectious bacteria however he has had history of VRE in the past. Patient was initially on IV antibiotics which has been converted to p.o. linezolid this time will stop the linezolid is the patient is not growing any bacteria as. At this time urine has also cleared up and patient is doing well. He denies any current chest pain, shortness a breath, nausea, vomiting, diarrhea or constipation. Hemoglobin hematocrit remained stable 12.7/40.6. Creatinine is 1.0. Glucose is also stable 116. Patient in denies any current needs at home. He is stable for discharge for labs and vital signs. Time Spent with Patient Time attestation: Total time spent providing and/or coordinating discharge services: 41 minutes Time spent: Greater than 30 minutes Specific discharge activities: Diagnostic testing, chart review, developing a treatment plan, education, care coordination documentation, physical exam, result review Exam Narrative: - GENERAL: pleasant older male in no acute distress. Well-nourished. - EYES: EOMI. Anicteric. - HENT: Moist mucous membranes. - LUNGS: Clear to auscultation bilaterally, no wheezing, rhonchi, or rales. - CARDIOVASCULAR: Regular rate and rhythm. No murmur. No JVD. - ABDOMEN: Soft, non-tender and non-distended. No palpable masses. - EXTREMITIES: No edema. Peripheral pulses 2+. Non-tender. - NEUROLOGIC: No focal neurological deficits. CN II-XII grossly intact. - PSYCHIATRIC: Awake, Alert and oriented x 3. Appropriate mood and affect. - SKIN: No rashes or lesions. Warm. - LYMPH: No cervical lymphadenopathy. DS: Data Data Completed and Pending Labs on day of discharge: Labs from last 24 hours 04/01/24 03/31/24 03/31/24 06:35 19:34 16:25 WBC 6.7 RBC 4.38 L Hgb 12.7 L Hct 40.6 L MCV 92.7 MCH 29.0 MCHC 31.3 L RDW 14.4 Plt Count 226 MPV 9.3 Immature Gran % (Auto) 0.4 Neut % (Auto) 59.3 Lymph % (Auto) 30.1 [place] % (Auto) 6.9 Eos % (Auto) 2.7 Baso % (Auto) 0.6 Lymph # (Auto) 2.01 [place] # (Auto) 0.5 Eos # (Auto) 0.2 Baso # (Auto) 0.0 Abs Immat Gran (auto) 0.03 Absolute Neuts (auto) 4.0 Absolute Nucleated RBC 0.000 Nucleated RBC % 0.0 Sodium 138
[2024-04-01 08:17] VITALS: BP 92/55
[2024-04-01] MEDS: LINEZOLID 600 MG TABLET PO (08:20)
[2024-04-01] MEDS: GABAPENTIN 300 MG CAPSULE PO (08:20)
[2024-04-01] MEDS: TAMSULOSIN HCL 0.4 MG CAPSULE PO (08:20)
[2024-04-01] MEDS: MIRABEGRON 50 MG ER TABLET PO (08:20)
[2024-04-01] MEDS: PANTOPRAZOLE SOD SESQUIHYDRATE 20 MG TAB PO (08:20)
== END 2024-04-01 10:00 | disposition home or self-care (01) ==
LOC: ANHED 21:09 → ANH3MEDSUR 22:03
PROVIDERS: Student in an Organized Health Care Education/Training Program; Admitting Provider Family Medicine; Emergency Provider Physician Assistant; PCP Internal Medicine; Visit Provider Hospitalist
DX: N30.91 Cystitis, unspecified with hematuria (principal); N13.30 Unspecified hydronephrosis; N40.1 Benign prostatic hyperplasia with lower urinary tract symptoms; N13.8 Other obstructive and reflux uropathy; I10 Essential (primary) hypertension; E11.42 Type 2 diabetes mellitus with diabetic polyneuropathy; E78.5 Hyperlipidemia, unspecified; K21.9 Gastro-esophageal reflux disease without esophagitis; F41.9 Anxiety disorder, unspecified; Z86.718 Personal history of other venous thrombosis and embolism; Z87.891 Personal history of nicotine dependence; Z79.01 Long term (current) use of anticoagulants; Z79.82 Long term (current) use of aspirin; Z79.85 Long-term (current) use of injectable non-insulin antidiabetic drugs; Z66 Do not resuscitate
CPT/HCPCS: 36415; 74176; 80048; 80053; 81001; 82948; 83690; 83735; 85025; 85610; 85730; 87040; 87086; 96365; 96367; 96375; 99285; A9270; G0378; J0696; J0878; J1170; J2405

== ENCOUNTER 2024-04-10 00:35 | Day surgery (SDC) | payer MEDICARE, MEDICAID, SELFPAY ==
[2024-04-08 11:07] VITALS: BMI 28.8
--- NOTE | 2024-04-08 11:35 | PC.NURSE ---
Report to the Outpatient Waiting Room, entrance under the green pavilion located off [facility], at time __8:30AM on date __04/10/24 . Planned Procedure Time: __10:30AM . Time changes happen often and if your time is changed the preop area will call you the afternoon before. - You and your visitor will be asked to self-screen and do not enter if you have any COVID symptoms. - A mask is optional within the hospital at this time. Patients may have clear liquids (water, carbonated beverages, clear teas, apple juice) until 3 hours prior to surgery with a maximum of 20 ounces. - No food from midnight until time of surgery - Infants may have breast milk until 4 hours before surgery, infant formula 6 hours prior to surgery. - Children will be allowed to drink immediately following surgery. If applicable, please bring a bottle or sippy cup to assist with drinking. Juice, water, soda, and popsicles are readily available. For infants on formula, please bring formula the day of surgery. Pacifiers are allowed. Take the following medications with a SIP of water the morning of surgery: ___GABAPENTIN DO NOT STOP ANY OF YOUR OTHER PRESCRIPTION MEDICATIONS PRIOR TO SURGERY ?EXCEPT THE FOLLOWING Medications to discontinue per physician __HOLD ASPIRIN & ELIQUIS PER DR GREENE Date to take last dose Please no make-up, nail mosotho, hairspray, perfume, deodorant, or body powder the day of surgery. No jewelry (including any body piercings) or valuables the day of surgery, leave them at home. Please take a shower or bath the night before, or the morning of, surgery with an antibacterial soap. Wear comfortable, loose fitting clothing. Children are encouraged to wear pajamas. - Jewelry must be removed prior to entering the operating room. Rings and piercings that are not removed may be cut off. - The hospital will not accept responsibility for valuables. - Please leave all valuables, including medications, at home the day of surgery. If you are going home after surgery, a licensed fire truck driver must drive you home. - NO public transportation without another adult if you receive anesthesia. - We recommend that an adult stay with you for 24 hours following discharge. - We also recommend that you do not drive, make important decision, drink alcoholic beverages, or take any drugs that were not prescribed by your health care provider for at least 24 hours after your discharge time. For Pediatric surgeries, we recommend two adults accompany the child home. Follow any additional instructions given to you from your surgeon. If you or anyone in your household have experienced Covid symptoms in the past week, please notify your surgeon or the nurse liaison at the phone number below for possible testing. Telephone instructions given to ___PATIENT and asked if any additional questions and then verbalized understanding. Patient advised to call surgeon office or pre surgery nurse liaison [phone] if any additional questions.
[2024-04-10] VITALS (8 sets, daily range): BP systolic 126–139; BP diastolic 53–69; PULSE 46–62; RESP 10–20; TEMP 35.7–36.3; O2SAT 96–100
--- NOTE | ~2024-04-10 | XR_ITS ---
XR retrograde pyelogram BI Ordering provider: Hugo Freeman MD History: . B/L RETRO/BLADDER BX . Comparison: None. FINDINGS/impression: Bilateral retrograde pyelography. Fluoroscopy time is 69.9 seconds. Cumulative dose is 26.04 mGy. Reviewed, dictated and finalized at location A.
--- NOTE | 2024-04-10 09:04 | ECG_ITS ---
Test Date: 2024-04-10 09:43:54 Measurements Intervals [place] Rate: 61 P: 0 NV: 0 QRS: -52 QRSD: 148 T: 21 QT: 407 QTc: 413 Interpretive Statements SINUS RHYTHM WITH MARKED FIRST DEGREE AV BLOCK LEFT AXIS DEVIATION RIGHT BUNDLE BRANCH BLOCK INFERIOR INFARCT, AGE INDETERMINATE BASELINE ARTIFACT- I, II, III, AVR, AVL, AVF ABNORMAL ECG No previous ECG available for comparison Electronically Signed On 04-10-2024 11:04:02 CDT by Kenny Lacey D.O.
[2024-04-10 09:20] LABS: Glucose Point of Care 93 mg/dl (65-105)
[2024-04-10] MEDS: LACTATED RINGERS 1,000 ML 30 ML IV CONT ×2 (09:30→11:42)
--- NOTE | 2024-04-10 09:38 | WPDANESEPPF ---
Anes - Initial Pre Proc Eval Procedure: Operation Date: 04/10/24 10:30 Proposed Procedures p Cystoscopy, Retrograde Pyelography, Bladder Biopsy with Formalin Instillation - Hugo Freeman MD Date/Time: 04/10/24 09:38 Surgeon: Hugo Freeman MD Pre Op Diagnosis: gross hematuria Patient Data Age: 78 Gender: M Height: 1.85 m Weight: 94 kg Last Vital Signs Temp 35.7 C L 04/10/24 09:00 Pulse 62 04/10/24 09:00 Resp 14 04/10/24 09:00 BP 136/62 04/10/24 09:00 Pulse Ox 100 04/10/24 09:00 O2 Del Method Room Air 04/10/24 09:00 Allergies Allergy/AdvReac Type Severity Reaction Status Date / Time iodine Allergy Rash Verified 04/08/24 10:55 Penicillins Allergy Swelling Verified 04/08/24 10:55 amitriptyline AdvReac BECOMES Verified 04/08/24 10:55 VIOLENT/COMBATIVE codeine AdvReac avoids Verified 04/08/24 10:55 -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 AdvReac Nausea and Verified 04/08/24 10:55 Vomiting Home Medications Medication Instructions Recorded Confirmed Type apixaban 5 mg tablet (Eliquis) 5 mg PO BID 01/13/24 04/08/24 History aspirin 81 mg tablet,delayed 81 mg PO DAILY 01/13/24 04/08/24 History release (Adult Low Dose Aspirin) atorvastatin 80 mg tablet 40 mg PO DAILY 01/13/24 04/08/24 History dulaglutide 1.5 mg/0.5 mL 1.5 mg subcut WEEKLY 01/13/24 04/08/24 History subcutaneous pen injector (Trulicity) mirabegron 50 mg tablet,extended 50 mg PO DAILY 01/13/24 04/08/24 History release 24 hr (Myrbetriq) omeprazole 20 mg capsule,delayed 20 mg PO BID 01/13/24 04/08/24 History release tamsulosin 0.4 mg capsule 0.4 mg PO DAILY 01/13/24 04/08/24 History gabapentin 300 mg capsule 300 mg PO BID 01/29/24 04/08/24 History lisinopril 5 mg tablet 2.5 mg PO DAILY 04/08/24 04/08/24 History metformin 500 mg tablet,extended 500 mg PO HS 04/08/24 04/08/24 History release 24 hr Laboratory Tests 04/10/24 09:17 POC Capillary Glucose 93 mg/dl (65-105) Patient hx anesthesia problems: none Family hx anesthesia problems: none Results Review: All pre-operative results and documents have been reviewed as part of the pre-operative evaluation. [facility], LAT[facility] Past Medical History Medical History History of diabetes mellitus History of hypertension VTE (venous thromboembolism) Surgical History Surgical History History of transurethral resection of bladder tumor (TURBT) Family History Family History Father Diabetes mellitus Sibling Diabetes mellitus Mother Congestive heart disease Social History Social History Smoking packs per day: 1 Smoking cigarettes per day: 20.0 Years smoked: 40 Smoking pack-years: 40.00 Smoking status: Former smoker Tobacco type: cigarettes Smoking end date: 03/23/95 Alcohol intake: former Alcohol use details: QUIT HEAVY DRINKER PRIOR Substance use: former Substance use type: does not use 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[place], REHAB AFTER Do You Feel Safe in your Home?: Yes Lack of Transportation: No Lack of Food: Never True Current Housing: I Have Housing Concerned About Future Housing: No Difficulty Paying Gas/Electric Bills: No Difficulty Paying for Meds: No Currently Unemployed: No Education: High School Diploma/GED Difficulty w/ Childcare or Family Care: No Living arrangements: with family Additional living arrangements comments: SON Spiritual care concerns: No Anes - Eval Final PreProcedure Day of Procedure 04/10/24 09:38 Patient weight: overweight Heart: regular rate and rhythm Lungs: clear to auscultation Airway: Mallampati scale class II Neurological: alert and oriented Last oral
--- NOTE | 2024-04-10 10:48 | WPDHPUPDATE1 ---
History and Physical Update Update Date/Time: 04/10/24 10:48 History and Physical has been reviewed, including an updated exam of the patient. There are NO changes in the patient's condition. Risks, benefits, and alternatives have been discussed and questions answered. Patient agrees to proceed with procedure.
[2024-04-10] MEDS: ceFAZolin 2 GM/D5W 50 ML 2 GM/50 ML BAG IVPB (10:52)
--- NOTE | 2024-04-10 11:38 | W.PM.PROC2 ---
Procedure Note - Detailed Date of Procedure 04/10/24 Pre-op Diagnosis Gross hematuria Post-op Diagnosis Same Procedure Performed Cystoscopy, cystogram, bilateral retrograde pyelogram, bladder biopsy, extensive bladder cauterization Surgeon Hugo Freeman MD Anesthesia General Findings 1. Left vesicoureteral reflux 2. Patchy hyperemia bladder mucosa of uncertain etiology Description of Procedure patient is brought to the operative suite where he is prepped and draped in routine sterile fashion while in dorsal lithotomy position after the uneventful induction of a general LMA anesthetic. Cystoscopy was undertaken with a 21 F rigid cystoscope. 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 Bladder mucosa is very unusual in that he has 2 areas of very pronounced hyperemia. One of these runs from the dome of the bladder to the bladder neck at the 2 o'clock position in the other of similar size running in the dome to the bladder neck at the 10 o'clock position. The remainder of the bladder mucosa and trigone are endoscopically normal. I was anticipating doing a biopsy with possible formalin installation. I 1st did a cystogram, however, in found reflux into the left ureter under low pressure. I therefore opted against the formalin installation. I did obtain biopsies of these hyperemic areas with a loop electrode and 27 F resectoscope. I then cauterized these areas hyperemia extensively with a 5mm rollerball. Bilateral retrograde pyelograms with an 8 F bulb-tipped catheter showed J hooking of the ureters but no obvious filling defects. Resectoscope was removed at the termination. The efflux was perfectly clear so I opted not to put any urethral catheter. Pathology Yes Complications No immediate complications Condition Stable Disposition PACU
[2024-04-10] MEDS: fentaNYL CITRATE INJ (*CRX) 100 MCG/2 ML VIAL 25 MCG IV PUSH (12:15)
[2024-04-10] MEDS: traMADol HCL (*CRX) 50 MG TABLET PO (12:56)
== END 2024-04-10 13:50 | disposition home or self-care (01) ==
PROVIDERS: PCP Internal Medicine; Visit Provider Urology
PROC: (CPT 52352; principal; 2024-04-10 10:30)
DX: R31.0 Gross hematuria (principal); N32.89 Other specified disorders of bladder; N13.70 Vesicoureteral-reflux, unspecified; I10 Essential (primary) hypertension; E11.9 Type 2 diabetes mellitus without complications
CPT/HCPCS: 52204; 74420; 82948; 87088; 88305; 93005; A9270; C1726; C1758; C1769; J0690; J2405; J2704; J3010; J7120; Q9966

== ENCOUNTER 2024-05-21 02:18 | Day surgery (SDC) | payer MEDICARE, MEDICAID, SELFPAY ==
--- NOTE | 2024-05-19 15:02 | PC.NURSE ---
Report to the Outpatient Waiting Room, entrance under the green pavilion located off [facility], at time __1:00 pm on date _05/21/24 . Planned Procedure Time: _3:00 PM .? Time changes happen often and if your time is changed the preop area will call you the afternoon before. - You and your visitor will be asked to self-screen and do not enter if you have any COVID symptoms. Please call surgeon if you need to reschedule. - A mask is optional within the hospital at this time. Patients may have clear liquids (water, carbonated beverages, clear teas, apple juice) until 3 hours prior to surgery with a maximum of 20 ounces. - No food from midnight until time of surgery and no smoking - Infants may have breast milk until 4 hours before surgery, formula 6 hours prior to surgery. - Children will be allowed to drink immediately following surgery.? If applicable, please bring a bottle or sippy cup to assist with drinking. Juice, water, soda, and popsicles are readily available.? For infants on formula, please bring formula the day of surgery.? Pacifiers are allowed. Take only the following medications with a SIP of water on the morning of surgery: __GABAPENTIN DO NOT STOP ANY OF YOUR OTHER PRESCRIPTION MEDICATIONS PRIOR TO SURGERY EXCEPT THE FOLLOWING Medications to discontinue per physician __PT STATES HOLD ASPIRIN AND ELIQUIS STARTING TODAY PER MARÍA Please no make-up, nail mongolian, hairspray, perfume, deodorant, or body powder the day of surgery.? No jewelry (including any body piercings) or valuables the day of surgery, leave them at home.? Please take a shower or bath the night before, or the morning of, surgery with an antibacterial soap.? Wear comfortable, loose fitting clothing.? Children are encouraged to wear pajamas. - Jewelry must be removed prior to entering the operating room.? Rings and piercings that are not removed may be cut off. - The hospital will not accept responsibility for valuables.? - Please leave all valuables, including medications, at home the day of surgery. If you are going home after surgery, a licensed commercial collections driver must drive you home.? - NO public transportation without another adult if you receive anesthesia. - We recommend that an adult stay with you for 24 hours following discharge. - We also recommend that you do not drive, make important decision, drink alcoholic beverages, or take any drugs that were not prescribed by your health care provider for at least 24 hours after your discharge time. For Pediatric surgeries, we recommend two adults accompany the child home. Follow any additional instructions given to you from your surgeon. Telephone instructions given to __PATIENT and asked if any additional questions and then verbalized understanding. Patient advised to call surgeon office or pre surgery nurse liaison [phone] if any additional questions.
[2024-05-19 15:08] VITALS: BMI 29.1
[2024-05-21] VITALS (10 sets, daily range): BP systolic 108–131; BP diastolic 49–81; PULSE 56–73; RESP 14–18; TEMP 36.7; O2SAT 96–97
[2024-05-21] MEDS: LACTATED RINGERS 1,000 ML 30 ML IV CONT (06:15)
--- NOTE | 2024-05-21 07:07 | WPDANESEPPF ---
Anes - Initial Pre Proc Eval Procedure: Operation Date: 05/21/24 08:15 Proposed Procedures p Cystoscopy with Kenalog Injection - Hugo Freeman MD Date/Time: 05/21/24 07:07 Surgeon: Hugo Freeman MD Pre Op Diagnosis: Gross Hematuria Patient Data Age: 78 Gender: M Height: 1.85 m Weight: 100.25 kg Allergies Allergy/AdvReac Type Severity Reaction Status Date / Time iodine Allergy Rash Verified 05/19/24 14:54 Penicillins Allergy Swelling Verified 05/19/24 14:54 amitriptyline AdvReac BECOMES Verified 05/19/24 14:54 VIOLENT/COMBATIVE codeine AdvReac avoids Verified 05/19/24 14:54 -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 AdvReac Nausea and Verified 05/19/24 14:54 Vomiting Home Medications Medication Instructions Recorded Confirmed Type apixaban 5 mg tablet (Eliquis) 5 mg PO BID 01/13/24 05/19/24 History aspirin 81 mg tablet,delayed 81 mg PO DAILY 01/13/24 05/19/24 History release (Adult Low Dose Aspirin) atorvastatin 80 mg tablet 40 mg PO DAILY 01/13/24 05/19/24 History dulaglutide 1.5 mg/0.5 mL 1.5 mg subcut WEEKLY 01/13/24 05/19/24 History subcutaneous pen injector (Trulicity) mirabegron 50 mg tablet,extended 50 mg PO DAILY 01/13/24 05/19/24 History release 24 hr (Myrbetriq) omeprazole 20 mg capsule,delayed 20 mg PO BID 01/13/24 05/19/24 History release tamsulosin 0.4 mg capsule 0.4 mg PO DAILY 01/13/24 05/19/24 History gabapentin 300 mg capsule 300 mg PO BID 01/29/24 05/19/24 History lisinopril 5 mg tablet 2.5 mg PO DAILY 04/08/24 05/19/24 History metformin 500 mg tablet,extended 500 mg PO HS 04/08/24 05/19/24 History release 24 hr hydrocodone 5 mg-acetaminophen 325 1 - 2 tablet PO Q6H PRN pain #20 04/10/24 05/19/24 Rx mg tablet tabs Patient hx anesthesia problems: none Family hx anesthesia problems: none Results Review: All pre-operative results and documents have been reviewed as part of the pre-operative evaluation. [facility] Past Medical History Medical History (Updated 05/21/24 @ 07:09 by Jesse La DO) CAD (coronary artery disease) CVA (cerebral vascular accident) 1982, 1990 mild left weakness Diabetic neuropathy History of diabetes mellitus History of heart attack History of hypertension TIA (transient ischemic attack) x8 VTE (venous thromboembolism) Surgical History Surgical History History of transurethral resection of bladder tumor (TURBT) Family History Family History Father Diabetes mellitus Sibling Diabetes mellitus Mother Congestive heart disease Social History Social History Smoking packs per day: 1 Smoking cigarettes per day: 20.0 Years smoked: 40 Smoking pack-years: 40.00 Smoking status: Former smoker Tobacco type: cigarettes Smoking end date: 03/23/95 Alcohol intake: former Alcohol use details: QUIT HEAVY DRINKER PRIOR Substance use: former Substance use type: does not use 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D Difficulty w/ Childcare or Family Care: No Living arrangements: with family Additional living arrangements comments: SON Spiritual care concerns: No Anes - Eval Final PreProcedure Day of Procedure 05/21/24 07:07 Patient weight: overweight Heart: regular rate and rhythm Lungs: clear to auscultation Airway: Mallampati scale class II Neurological: alert and oriented Last oral intake: >/= 8 hours ASA classification:
[2024-05-21 07:35] LABS: Glucose Point of Care 137 mg/dl (65-105)
--- NOTE | 2024-05-21 07:43 | WPDHPUPDATE1 ---
History and Physical Update Update Date/Time: 05/21/24 07:43 History and Physical has been reviewed, including an updated exam of the patient. There are NO changes in the patient's condition. Risks, benefits, and alternatives have been discussed and questions answered. Patient agrees to proceed with procedure.
[2024-05-21] MEDS: ceFAZolin 2 GM/D5W 50 ML 2 GM/50 ML BAG IVPB (08:38)
[2024-05-21] MEDS: LIDOCAINE HCL 2% GEL UROJET 10 ML PKG MUCOUS MEM (08:47)
[2024-05-21] MEDS: TRIAMCINOLONE ACET INJ 40 MG/ML VIAL 200 MG IM (08:51)
--- NOTE | 2024-05-21 09:02 | W.PM.PROC2 ---
Procedure Note - Detailed Date of Procedure 05/21/24 Pre-op Diagnosis Gross Hematuria Post-op Diagnosis Same Procedure Performed Cystoscopy, Kenalog injection into bladder Surgeon Hugo Freeman MD Anesthesia MAC Description of Procedure Patient is brought to the operative suite was prepped draped in routine sterile fashion while in dorsal lithotomy position. 2% xylocaine jelly was introduced intraurethrally and systemic sedation is administered per the anesthesia department. Cystoscopy was undertaken with a 19 F rigid cystoscope with a 0 degree lens. Again his bladder shows he has 2 areas of ulceration, almost necrotic looking, tissue in each lateral wall. using 200 mg of Kenalog diluted to 10 milligrams/cc I injected each of these ulcerative site circumferentially with equal distribution on each side. Cystoscope was removed and an 18 F catheter was placed to drainage. Drains No Packing No Pathology None sent Complications No immediate complications
[2024-05-21] MEDS: HYDROcodone/acetaminophen (*CRX) 5-325 MG TABLET 1 TAB PO (10:10)
--- NOTE | 2024-05-21 15:54 | SUR.PHASEII ---
1130: Patient meets criteria but ride can't be here until after he gets off work later this evening.
--- NOTE | 2024-05-21 15:58 | SUR.PHASEII ---
Dr. Freeman said this AM that patient could leave BLACK in until right before ride was here and then it could be discontinued before discharge. RN left IV in all day just in case it was needed as well.
== END 2024-05-21 16:20 | disposition home or self-care (01) ==
PROVIDERS: PCP Internal Medicine; Visit Provider Urology
PROC: 3E0K8GC Introduction of Other Therapeutic Substance into Genitourinary Tract, Via Natural or Artificial Opening Endoscopic (ICD-10-PCS; CPT 52283; principal; 2024-05-21 08:15)
DX: N32.89 Other specified disorders of bladder (principal); R31.0 Gross hematuria; I25.10 Atherosclerotic heart disease of native coronary artery without angina pectoris; E11.40 Type 2 diabetes mellitus with diabetic neuropathy, unspecified; I10 Essential (primary) hypertension; I25.2 Old myocardial infarction; Z86.73 Personal history of transient ischemic attack (TIA), and cerebral infarction without residual deficits; Z86.718 Personal history of other venous thrombosis and embolism; Z79.01 Long term (current) use of anticoagulants; Z79.82 Long term (current) use of aspirin; Z79.85 Long-term (current) use of injectable non-insulin antidiabetic drugs; Z79.84 Long term (current) use of oral hypoglycemic drugs; Z87.891 Personal history of nicotine dependence
CPT/HCPCS: 52283; 82948; A9270; J0690; J2704; J3301; J7120

== ENCOUNTER 2024-07-04 16:01 | Inpatient (IN) | payer MEDICARE, OTHER, MEDICAID, SELFPAY ==
--- NOTE | ~2024-07-04 | XR_ITS ---
EXAMINATION: XR chest 2V Exam Date/Time: 07/04/2024 17:22 CDT HISTORY: Syncopal Comparison: CT abdomen pelvis 03/29/2024. RESULT: Lines, tubes, and devices: Cholecystectomy clips. Lungs and pleura: Chronic right pleural thickening and volume loss with right basilar scarring. Cardiomediastinal silhouette: Stable. Other: No acute osseous or upper abdominal finding. IMPRESSION: No acute cardiopulmonary process. Reviewed, dictated and finalized at location K.
--- NOTE | ~2024-07-04 | MR_ITS ---
EXAMINATION: MR brain/brain stem wo con DATE: 07/07/2024 11:24 INDICATION: Syncope. Transient ischemic episode. TECHNIQUE: Magnetic resonance imaging (MRI) of the brain and brainstem was performed without intraven ous contrast. Sequences included sagittal and axial T1-weighted SE, axial diffusion-weighted FS SE, a xial T2*-weighted GRE, axial T2-weighted FLAIR, and axial T2-weighted FSE. Apparent diffusion coeffic ient (ADC) maps were created. COMPARISON: Head CT dated 07/04/2024 FINDINGS: There are no areas of restricted diffusion to suggest acute infarction. No intracranial hemorrhage or abnormal intracranial mass lesion. There are scattered areas of nonspecific increased T2-weighted si gnal intensity in the cerebral white matter, predominantly involving the deep and periventricular whi te matter. There are a few small old lacunar infarct versus prominent perivascular spaces in the whit e matter of the bilateral centrum semiovale. There are no intraparenchymal signal abnormalities seen on the other pulse sequences. Symmetric prominence of the sulci and ventricles consistent with modera te to severe age-appropriate diffuse cerebral volume loss. There are no abnormal extra-axial fluid co llections. Flow voids are seen in the cerebral arteries on the T2-weighted sequences consistent with their expected patency. Visualized orbits and soft tissues are unremarkable. Mild mucosal thickening the bilateral maxillary and ethmoid sinuses. IMPRESSION: 1. A few small old lacunar infarct versus prominent perivascular spaces in the white matter of the bi lateral centrum semiovale. No acute intracranial process. 2. Age-related changes including moderate to severe diffuse volume loss and mild scattered nonspecifi c periventricular predominant white matter T2 hyperintensity which is likely sequela of chronic small vessel ischemic disease. Reviewed, dictated and finalized at location A. IMPRESSION: 1. A few small old lacunar infarct versus prominent perivascular spaces in the white matter of the bilateral centrum semiovale. No acute intracranial process. 2. Age-related changes including moderate to severe diffuse volume loss and mil d scattered nonspecific periventricular predominant white matter T2 hyperintens ity which is likely sequela of chronic small vessel ischemic disease.
--- NOTE | ~2024-07-04 | CT_ITS ---
EXAMINATION: CT brain wo con DATE: 07/04/2024 17:29 INDICATION: fall, on thinners . TECHNIQUE: Computed tomography (CT) of the head was performed without intravenous contrast. The mA wa s adjusted according to patient size. Iterative reconstruction technique was employed. The dose-lengt h product was 681.00 mGy-cm. COMPARISON: None. FINDINGS: No acute intracranial hemorrhage or extra-axial fluid collection. No hydrocephalus, mass, or herniation. No acute ischemic infarct. Unremarkable dural venous sinus attenuation. No acute osseous abnormality. The aerated spaces are clear. Moderate atrophy and mild chronic white matter change. Atherosclerotic intracranial calcification. IMPRESSION: No acute intracranial process. Reviewed, dictated and finalized at location K.
--- NOTE | ~2024-07-04 | CT_ITS ---
EXAMINATION: CT cervical spine wo con DATE: 07/04/2024 17:29 INDICATION: fall TECHNIQUE: Computed tomography (CT) of the cervical spine was performed without intravenous contrast. Automated exposure control and iterative reconstruction technique were employed. The dose-length pro duct was 424.93 mGy-cm. COMPARISON: None. FINDINGS: Vertebral Body Alignment: Intact. Cervical straightening. Craniocervical and atlantoaxial alignment: Moderate degenerative change. Alignment intact. Osseous structures/fracture: No evidence of a lytic or blastic process in the visualized spine. No e vidence of acute fracture. Cervical soft tissues: The paraspinal soft tissues planes are maintained. Biapical pleural scarring. Degenerative changes: Multilevel degenerative disc disease and facet arthropathy. Multilevel moderate bilateral neural foraminal narrowing. Moderate central canal narrowing at C5-6 secondary to degenera tive changes. IMPRESSION: No acute fracture or traumatic malalignment in the cervical spine. Reviewed, dictated and finalized at location K.
--- NOTE | ~2024-07-04 | XR_ITS ---
EXAMINATION: XR ankle LT min 3V DATE: 07/08/2024 12:48 INDICATION: Left ankle pain TECHNIQUE: Anteroposterior, oblique, mortise, and lateral views of the left ankle were obtained. COMPARISON: None. FINDINGS: Bone alignment is normal. No fracture. Mild to moderate polyarticular osteoarthritis most prominent a t the left first metatarsophalangeal joint is in a few of the tarsal metatarsal joints and to lesser degree at the remaining joints in the mid and hindfoot. Subarticular cystic change along the medial r im of the talar dome. Moderate-sized Achilles and plantar calcaneal spurs. Soft tissues are unremarka ble. No evident ankle joint effusion. IMPRESSION: 1. 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 No acute osseous abnorma lity. Reviewed, dictated and finalized at location A. IMPRESSION: 1. 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 No acute osseous abnormality.
--- NOTE | 2024-07-04 16:08 | ECG_ITS ---
Test Date: 2024-07-04 16:17:45 Measurements Intervals [place] Rate: 81 P: -11 MN: 316 QRS: -65 QRSD: 134 T: 23 QT: 338 QTc: 394 Interpretive Statements SINUS RHYTHM WITH FIRST DEGREE AV BLOCK POSSIBLE LEFT ATRIAL ENLARGEMENT [-0.1mV P WAVE IN V1/V2] LEFT AXIS DEVIATION RIGHT BUNDLE BRANCH BLOCK INFERIOR MYOCARDIAL INFARCTION , PROBABLY OLD [40+ ms Q WAVE AND/OR ST/T ABNORMALITY IN II/aVF] Compared to ECG 04/10/2024 09:43:54 no changes Electronically Signed On 07-04-2024 22:04:06 CDT by Zoie Turpin M.D.
[2024-07-04 16:21] VITALS: BP 109/52; PULSE 81; RESP 18; TEMP 36.5; O2SAT 98
[2024-07-04 17:07] LABS: Basophils Percent Auto 0.3 % (0.2-1.2); Eosinophils Percent Auto 0.5 % (0-4.4); Hematocrit 32.5 % (42.0-52.0); Hemoglobin 10.5 g/dL (14.0-18.0); Immature Granulocyte Absolute 0.02 K/mm3 (0.00-0.031); Immature Granulocyte Percent A 0.3 % (0-0.5); Lymphocytes Absolute Auto 2.19 K/mm3 (0.9-3.2); Lymphocytes Percent Auto 33.3 % (18.3-44.2); Mean Corpuscular HGB Conc 32.3 g/dl (32-36); Mean Corpuscular Hemoglobin 27.6 pg (26-34); Mean Corpuscular Volume 85.5 fl (80-100); Mean Platelet Volume 8.8 fl (7.4-10.4); Monocytes Absolute Auto 0.6 K/mm3 (0.1-0.6); Monocytes Percent Auto 9.1 % (2.6-8.5); Neutrophils Absolute Auto 3.7 K/mm3 (1.3-6.7); Neutrophils Percent Auto 56.5 % (45.5-73.1); Platelet Count Result 241 k/mm3 (150-375); Red Cell Distribution Width 15.9 % (11.5-14.5); White Blood Count 6.6 K/mm3 (4.5-10.0)
[2024-07-04 17:17] LABS: Alanine Aminotransferase 15 U/L (6-50); Albumin Level 3.6 g/dL (3.5-5.1); Alkaline Phosphatase 106 U/L (38-126); Anion Gap 7 mmol/L (4-12); Aspartate Amino Transferase 16 U/L (17-59); Bilirubin,Total 0.4 mg/dL (0.2-1.3); Blood Urea Nitrogen 20 mg/dL (9-20); Calcium 9.2 mg/dL (8.4-10.2); Carbon Dioxide 25 mmol/L (22-30); Chloride 103 mmol/L (98-107); Estimated CRCL calculation 61 ml/min; Estimated Glomerular Filt Rate > 60; Glucose 100 mg/dL (65-110); Potassium 4.1 mmol/L (3.4-5.0); Sodium 135 mmol/L (137-145)
--- NOTE | 2024-07-04 18:20 | PM.IMHP ---
H&P: HPI History of Present Illness Date/Time: 07/04/24 18:20 Chief Complaint: Syncope Narrative: Patient is a 78-year-old male with a PMHx: Of type 2 diabetes, GERD, history of DVT on Eliquis, ongoing hematuria presented to the emergency room with complaint of syncopal episode. Patient states he return from a today, he reports going in to use the bathroom, when he awoke to being on the floor. He is unable to recall any more details of the episode. He reports this was his 2nd episode syncope. ED Work-up reveals: Initial vitals: b/p 110/54, rr 18, pr 63 sp02 % 99 on RA T: 98.9, A&O x3 upon arrival per EMS, EKG showed sinus rhythm rate 84 with 1st degree AV block CT interval 360, QRS 134, QTC 394, left axis, no obvious ST elevations depressions, compared to prior EKG and they do appear very similar. CT head, C- spine, were negative, blood work revealed slightly low hgb, patient has history of ongoing hematuria > 6 months, UA significant for UTI, urine WBC > 100, urine culture pending Review of Systems Review of Systems: All systems reviewed & are unremarkable except as noted in HPI and below PMFSH Past Medical History Medical History (Updated 07/04/24 @ 20:08 by Janelle Mcpherson MD) CAD (coronary artery disease) CVA (cerebral vascular accident) 1982, 1990 mild left weakness Diabetic neuropathy History of diabetes mellitus History of heart attack History of hypertension TIA (transient ischemic attack) x8 VTE (venous thromboembolism) Surgical History Surgical History History of transurethral resection of bladder tumor (TURBT) Family History Family History Father Diabetes mellitus Sibling Diabetes mellitus Mother Congestive heart disease Social History Social History Smoking packs per day: 1 Smoking cigarettes per day: 20.0 Years smoked: 40 Smoking pack-years: 40.00 Smoking status: Former smoker Tobacco type: cigarettes Smoking end date: 03/23/95 Alcohol intake: former Alcohol use details: QUIT HEAVY DRINKER PRIOR Substance use: former Substance use type: does not use 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[place], 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 1979 Do You Feel Safe in your Home?: Yes Lack of Transportation: No Lack of Food: Never True Current Housing: I Have Housing Concerned About Future Housing: No Difficulty Paying Gas/Electric Bills: No Difficulty Paying for Meds: No Currently Unemployed: No Education: High School Diploma/GED Difficulty w/ Childcare or Family Care: No Living arrangements: with family Additional living arrangements comments: SON Spiritual care concerns: No Meds Home Medications and Allergies Home Medications Medication Instructions Recorded Confirmed Type apixaban 5 mg tablet (Eliquis) 5 mg PO BID 01/13/24 07/04/24 History aspirin 81 mg tablet,delayed 81 mg PO DAILY 01/13/24 07/04/24 History release (Adult Low Dose Aspirin) atorvastatin 80 mg tablet 40 mg PO DAILY 01/13/24 07/04/24 History dulaglutide 1.5 mg/0.5 mL 1.5 mg subcut WEEKLY 01/13/24 07/04/24 History subcutaneous pen injector (Trulicity) mirabegron 50 mg tablet,extended 50 mg PO DAILY 01/13/24 07/04/24 History release 24 hr (Myrbetriq) omeprazole 20 mg capsule,delayed 20 mg PO BID 01/13/24 07/04/24 History release tamsulosin 0.4 mg capsule 0.4 mg PO DAILY 01/13/24 07/04/24 History gabapentin 300 mg capsule 300 mg PO BID 01/29/24 07/04/24 History lisinopril 5 mg tablet 2.5 mg PO DAILY 04/08/24 07/04/24 History Allergies Allergy/AdvReac Type Severity Reaction Status Date / Time iodine Allergy Rash Verified 07/04/24 16:25 Penicillins Allergy Swelling Verified 07/04/24 16:25 amitriptyline AdvReac BECOMES Verified 07/04/24 16:25 VIOLENT/COMBATIVE codeine AdvReac
[2024-07-04 18:28] LABS: Add Urine Microscopic? YES; Appearance Urine Turbid (Clear); Bacteria Urine Rare /hpf; Bilirubin Urine Negative (Negative); Blood Urine 2+ (Negative); Color Urine Yellow (Yellow); Glucose Urine UA Negative (Negative); Ketones Urine Negative (Negative); Leukocyte Esterase Ur 3+ LEU/UL (Negative); Nitrate Urine Negative (Negative); Protein Urine 2+ mg/dL (Negative); Squamous Epithelial Cell Urine None Seen /hpf (Few); Urobilinogen Urine 0.2 mg/dL (<2.0); WBC Urine >100 /hpf (0-3)
[2024-07-04 18:57] VITALS: BP 116/88; PULSE 66; RESP 18; TEMP 37.2; O2SAT 97
--- NOTE | 2024-07-04 19:20 | ED.SYNCOPE ---
HPI - Syncope General Chief Complaint: Syncope Stated Complaint: Syncopal Episodes x2 Time Seen by Provider: 07/04/24 16:54 History of Present Illness HPI narrative: patient presenting with syncope; no prodrome, he just walked into the bathroom and then woke up on the floor, having hit his head on the bath tub. This happened one more time and then he came into the ER. he is on blood thinners but denies any complaints. Related Data Home Medications Medication Instructions Recorded Confirmed apixaban 5 mg tablet (Eliquis) 5 mg PO BID 01/13/24 05/21/24 aspirin 81 mg tablet,delayed 81 mg PO DAILY 01/13/24 05/21/24 release (Adult Low Dose Aspirin) atorvastatin 80 mg tablet 40 mg PO DAILY 01/13/24 05/19/24 dulaglutide 1.5 mg/0.5 mL 1.5 mg subcut WEEKLY 01/13/24 05/19/24 subcutaneous pen injector (Trulicity) mirabegron 50 mg tablet,extended 50 mg PO DAILY 01/13/24 05/19/24 release 24 hr (Myrbetriq) omeprazole 20 mg capsule,delayed 20 mg PO BID 01/13/24 05/19/24 release tamsulosin 0.4 mg capsule 0.4 mg PO DAILY 01/13/24 05/19/24 gabapentin 300 mg capsule 300 mg PO BID 01/29/24 05/21/24 lisinopril 5 mg tablet 2.5 mg PO DAILY 04/08/24 05/19/24 metformin 500 mg tablet,extended 500 mg PO HS 04/08/24 05/19/24 release 24 hr Allergies Allergy/AdvReac Type Severity Reaction Status Date / Time iodine Allergy Rash Verified 07/04/24 16:25 Penicillins Allergy Swelling Verified 07/04/24 16:25 amitriptyline AdvReac BECOMES Verified 07/04/24 16:25 VIOLENT/COMBATIVE codeine AdvReac avoids Verified 07/04/24 16:25 -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 AdvReac Nausea and Verified 07/04/24 16:25 Vomiting Review of Systems Review of Systems: All systems reviewed & are unremarkable except as noted in HPI and below PMFSH Past Medical History Medical History (Updated 07/04/24 @ 20:08 by Janelle Mcpherson MD) CAD (coronary artery disease) CVA (cerebral vascular accident) 1982, 1990 mild left weakness Diabetic neuropathy History of diabetes mellitus History of heart attack History of hypertension TIA (transient ischemic attack) x8 VTE (venous thromboembolism) Surgical History Surgical History History of transurethral resection of bladder tumor (TURBT) Family History Family History Father Diabetes mellitus Sibling Diabetes mellitus Mother Congestive heart disease Social History Social History Smoking packs per day: 1 Smoking cigarettes per day: 20.0 Years smoked: 40 Smoking pack-years: 40.00 Smoking status: Former smoker Tobacco type: cigarettes Smoking end date: 03/23/95 Alcohol intake: former Alcohol use details: QUIT HEAVY DRINKER PRIOR Substance use: former Substance use type: does not use 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D Difficulty w/ Childcare or Family Care: No Living arrangements: with family Additional living arrangements comments: SON Spiritual care concerns: No Exam Narrative: EXAMINATION OF ORGAN SYSTEMS/BODY AREAS: Constitutional: Vital signs per nursing GENERAL:[No acute distress, non-toxic appearing.] HEAD: Normal with no signs of head trauma. EYES: EOMI, conjunctiva normal ENT: Hearing grossly intact LUNGS: Nonlabored breathing. HEART: [Regular rate and rhythm] ABD: [Soft], [nontender to palpation] EXT: Normal range of motion SKIN: [No rashes or lesions.] NEURO: [Alert and oriented
[2024-07-04 19:37] VITALS: BMI 29.4
--- NOTE | 2024-07-04 21:14 | ADMGEN ---
This patient, Cosme Javier, was admitted to 3 [facility] Surg Room 319-01. Patient/family oriented to hospital policies and general routines including ID bracelet, bed and alarms, visiting hours, pain management, procedures, bathroom and other care routines, personal items, smoking policy, room service/diet, and visiting hours. Information on how to activate the Rapid Response Team has been discussed. Patient/Family are encouraged to report perceived risks to care and to ask questions if they do not understand what they are told or what they should do.
[2024-07-04 21:41] VITALS: BP 110/54; PULSE 63; RESP 18; TEMP 37.2; O2SAT 99
[2024-07-04 21:45] VITALS: BP 123/57; PULSE 65
[2024-07-04 21:49] VITALS: BP 111/65; PULSE 71
[2024-07-05] VITALS (14 sets, daily range): BP systolic 105–137; BP diastolic 57–84; PULSE 66–90; RESP 17–20; TEMP 36.9–37.2; O2SAT 95–98
[2024-07-05 06:32] LABS: Basophils Percent Auto 0.4 % (0.2-1.2); Eosinophils Percent Auto 0.5 % (0-4.4); Hematocrit 31.5 % (42.0-52.0); Immature Granulocyte Absolute 0.01 K/mm3 (0.00-0.031); Immature Granulocyte Percent A 0.2 % (0-0.5); Lymphocytes Absolute Auto 2.01 K/mm3 (0.9-3.2); Lymphocytes Percent Auto 35.2 % (18.3-44.2); Mean Corpuscular HGB Conc 31.7 g/dl (32-36); Mean Corpuscular Hemoglobin 27.4 pg (26-34); Mean Corpuscular Volume 86.3 fl (80-100); Monocytes Absolute Auto 0.5 K/mm3 (0.1-0.6); Monocytes Percent Auto 9.5 % (2.6-8.5); Neutrophils Absolute Auto 3.1 K/mm3 (1.3-6.7); Neutrophils Percent Auto 54.2 % (45.5-73.1); Platelet Count Result 230 k/mm3 (150-375); Red Blood Count 3.65 M/mm3 (4.6-6.20); Red Cell Distribution Width 16.3 % (11.5-14.5); White Blood Count 5.7 K/mm3 (4.5-10.0)
[2024-07-05 07:13] LABS: Alanine Aminotransferase 13 U/L (6-50); Albumin Level 3.3 g/dL (3.5-5.1); Alkaline Phosphatase 104 U/L (38-126); Anion Gap 6 mmol/L (4-12); Aspartate Amino Transferase 18 U/L (17-59); Bilirubin,Total 0.5 mg/dL (0.2-1.3); Blood Urea Nitrogen 20 mg/dL (9-20); Calcium 9.1 mg/dL (8.4-10.2); Carbon Dioxide 27 mmol/L (22-30); Chloride 103 mmol/L (98-107); Estimated CRCL calculation 61 ml/min; Estimated Glomerular Filt Rate > 60; Glucose 123 mg/dL (65-110); Potassium 4.2 mmol/L (3.4-5.0); Sodium 136 mmol/L (137-145)
[2024-07-05 08:06] LABS: Glucose Point of Care 126 mg/dl (65-105)
--- NOTE | 2024-07-05 08:44 | PM.IMPN ---
Progress Note: A&P Assessment and Plan (1) UTI (urinary tract infection): Code(s): N39.0 - Urinary tract infection, site not specified Status: Acute Assessment and Plan: As evidence by UA, urine wbc's > 100, urine culture pending -continue ceftriaxone 1 g IV Q 24 hours (2) Syncope: Code(s): R55 - Syncope and collapse Status: Acute Assessment and Plan: Positive orthostatic readings -continue telemetry monitoring -history of TIAs -check echocardiogram in the a.m. -may consider Cardiology consult per a.m. rounding team -monitor orthostatic vitals daily -initiate fall precautions (3) HLD (hyperlipidemia): Code(s): E78.5 - Hyperlipidemia, unspecified Status: Acute Assessment and Plan: -continue home medication (4) GERD (gastroesophageal reflux disease): Code(s): K21.9 - Gastro-esophageal reflux disease without esophagitis Status: Acute Assessment and Plan: -continue home medication (5) Essential hypertension: Code(s): I10 - Essential (primary) hypertension Status: Acute Assessment and Plan: -b/p: stable/soft 110/54 -continue monitor vitals q.4 hours -hold home b/p: medication if systolic < 100 (6) Gross hematuria: Code(s): R31.0 - Gross hematuria Status: Acute Assessment and Plan: -ongoing for > 6 months -monitor I&O -urine culture pending -continue to monitor CBC, BMP daily Plan Continue home medications: Tamsulosin p.o. VTE Prophylaxis: Apixaban p.o. DIET: Heart healthy Anticipated hospital stay: > 2 days Code Status: DNR Time Spent With Patient Time with patient: Greater than 35 minutes Subjective Date/time seen: 07/05/24 08:44 Interval history: Syncope Narrative retrieved from H/P: Patient is a 78-year-old male with a PMHx: Of type 2 diabetes, GERD, history of DVT on Eliquis, ongoing hematuria presented to the emergency room with complaint of syncopal episode. Patient states he return from a today, he reports going in to use the bathroom, when he awoke to being on the floor. He is unable to recall any more details of the episode. He reports this was his 2nd episode syncope. ED Work-up reveals: Initial vitals: b/p 110/54, rr 18, pr 63 sp02 % 99 on RA T: 98.9, A&O x3 upon arrival per EMS, EKG showed sinus rhythm rate 84 with 1st degree AV block WV interval 360, QRS 134, QTC 394, left axis, no obvious ST elevations depressions, compared to prior EKG and they do appear very similar. CT head, C- spine, were negative, blood work revealed slightly low hgb, patient has history of ongoing hematuria > 6 months, UA significant for UTI, urine WBC > 100, urine culture pending 07/05 - pt is seen and examined. Pt is very pleasant, denies any acute issues. no chest paon, no sob, no n/v/d. Review of Systems Review of Systems: All systems reviewed & are unremarkable except as noted in HPI and below Exam Const: General: comfortable Eyes: General: appearance normal, both eyes and all related structures Resp: Effort & Inspection: normal respiratory effort Auscultation: clear to auscultation bilaterally Cardio: Rate: regular rate Skin: General skin exam: normal color Neuro: Speech: normal speech Motor exam (neuro): 5/5 motor strength present throughout Sensory Exam: normal sensation Extrem: General: normal to inspection Psych: Mental Status: mental status grossly normal Objective Data Vital Signs Vital Signs: Vital Signs - 24 hr 07/04/24 16:21 07/04/24 18:57 07/04/24 21:41 Temperature 97.7 F 98.9 F 98.9 F Pulse Rate 81 66 63 Respiratory Rate 18 18 18 Blood Pressure 109/52 L 116/88 110/54 L Pulse Oximetry 98 97 99 Oxygen Delivery Room Air 07/04/24 21:41 07/04/24 21:45 07/04/24 21:49 Temperature Pulse Rate 63 65 71 Respiratory Rate Blood Pressure 110/54 L 123/57 L 111/65 Pulse Oximetry Oxygen Delivery 07/05/24 00:00 07/05/24 04:00
[2024-07-05] MEDS: ATORVASTATIN 40 MG TABLET PO (08:47)
[2024-07-05] MEDS: lisinopriL 2.5 MG TABLET PO (08:47)
[2024-07-05] MEDS: TAMSULOSIN HCL 0.4 MG CAPSULE PO (08:47)
[2024-07-05] MEDS: ASPIRIN 81 MG ENTERIC TABLET PO (08:47)
[2024-07-05] MEDS: PANTOPRAZOLE 40 MG TABLET PO ×2 (08:48→21:40)
[2024-07-05] MEDS: MIRABEGRON 50 MG ER TABLET PO (08:48)
[2024-07-05] MEDS: APIXABAN 5 MG TABLET PO ×2 (08:48→21:40)
[2024-07-05] MEDS: GABAPENTIN 300 MG CAPSULE PO ×3 (08:48→15:52)
[2024-07-05 11:39] LABS: Glucose Point of Care 128 mg/dl (65-105)
[2024-07-05] MEDS: ACETAMINOPHEN 325 MG TABLET 650 MG PO (15:51)
[2024-07-05 16:06] LABS: Glucose Point of Care 131 mg/dl (65-105)
[2024-07-05 21:15] LABS: Glucose Point of Care 167 mg/dl (65-105)
[2024-07-06] VITALS (12 sets, daily range): BP systolic 94–123; BP diastolic 53–75; PULSE 62–80; RESP 18–20; TEMP 36.4–37.1; O2SAT 97–99
--- NOTE | 2024-07-06 | ECHO_ITS ---
Patient Info Name: Cosme Javier Age: 78 years : 1945 Gender: Male Ht: 73 in Wt: 223 lbs BSA: 2.30 m2 HR: 77 bpm BP: 123 / 61 mmHg Heart Rhythm: Sinus Rhythm Technical Quality: Poor Exam Date: 07/06/2024 9:08 AM Exam Location: Echo Lab Patient Status: Outpatient Admit Date: 07/04/2024 Staff Ordering Physician: Dilma Yanes APRN Violin Tutor: RONEL Attending Provider: Stewart Amezquita MD Referring Physician: Joaquín ALCANTARA; Exam Type: CA echo dop color flow w con Study Info Indications - syncope Complete two-dimensional, color flow and Doppler transthoracic echocardiogram is performed with contrast to opacify the left ventricle and to improve the deliniation of the left ventricle endocardial borders. Reason for Poor Study: poor echocardiographic windows Summary 1. The left ventricle is normal size with normal systolic function. LVEF is estimated to be 55-60%. 2. Technically poor study. Left Ventricle The left ventricle is normal size with normal systolic function. LVEF is estimated to be 55-60%. Right Ventricle The right ventricle is normal size and systolic function. Left Atria The left atrial size is normal. Right Atria The right atrial size is normal. Aortic Valve The aortic valve is not well visualized. There is no color Doppler evidence of aortic regurgitation or stenosis. Pulmonic Valve The pulmonic valve is not well visualized. Mitral Valve The mitral valve is normal. There is no mitral regurgitation. Tricuspid Valve The tricuspid valve is not well visualized. Pericardium/Pleural This is not well visualized. Left Ventricular Outflow Tract Name Value Normal LVOT 2D LVOT Diameter 1.97 cm LVOT Doppler LVOT Peak Gradient 4 mmHg LVOT Mean Gradient 2 mmHg LVOT VTI 21.44 cm LVOT VTI/AV VTI Ratio 0.85 LVOT Stroke Volume 65.52 ml LVOT CO 4.61 l/min LVOT CI 2.00 L/min/m2 Pulmonic Valve Name Value Normal PV Doppler PV Peak Gradient 1 mmHg Mitral Valve Name Value Normal MV Doppler MV Decel [place] 569.89 cm/s2 MV PHT 0 s MV Area (PHT) 5.91 cm2 4.00-5.00 MV Diastolic Function MV E Peak Velocity 73.11 cm/s MV A Peak Velocity 103.10 cm/s MV E/A 0.71 MV Decel Time 0 s
[2024-07-06 06:55] LABS: Basophils Percent Auto 0.4 % (0.2-1.2); Eosinophils Percent Auto 0.4 % (0-4.4); Hematocrit 33.1 % (42.0-52.0); Hemoglobin 10.6 g/dL (14.0-18.0); Immature Granulocyte Absolute 0.02 K/mm3 (0.00-0.031); Immature Granulocyte Percent A 0.3 % (0-0.5); Lymphocytes Absolute Auto 1.78 K/mm3 (0.9-3.2); Lymphocytes Percent Auto 25.6 % (18.3-44.2); Mean Corpuscular Volume 87.3 fl (80-100); Monocytes Absolute Auto 0.5 K/mm3 (0.1-0.6); Monocytes Percent Auto 6.9 % (2.6-8.5); Neutrophils Absolute Auto 4.6 K/mm3 (1.3-6.7); Neutrophils Percent Auto 66.4 % (45.5-73.1); Platelet Count Result 244 k/mm3 (150-375); Red Blood Count 3.79 M/mm3 (4.6-6.20); Red Cell Distribution Width 16.3 % (11.5-14.5)
[2024-07-06 07:10] LABS: Alanine Aminotransferase 12 U/L (6-50); Albumin Level 3.3 g/dL (3.5-5.1); Alkaline Phosphatase 100 U/L (38-126); Anion Gap 2 mmol/L (4-12); Aspartate Amino Transferase 19 U/L (17-59); Bilirubin,Total 0.6 mg/dL (0.2-1.3); Blood Urea Nitrogen 16 mg/dL (9-20); Calcium 8.9 mg/dL (8.4-10.2); Carbon Dioxide 32 mmol/L (22-30); Chloride 100 mmol/L (98-107); Estimated CRCL calculation 61 ml/min; Estimated Glomerular Filt Rate > 60; Glucose 120 mg/dL (65-110); Potassium 4.2 mmol/L (3.4-5.0); Sodium 134 mmol/L (137-145)
[2024-07-06] MEDS: TAMSULOSIN HCL 0.4 MG CAPSULE PO (08:05)
[2024-07-06] MEDS: APIXABAN 5 MG TABLET PO ×2 (08:05→21:08)
[2024-07-06] MEDS: GABAPENTIN 300 MG CAPSULE PO ×3 (08:05→17:16)
[2024-07-06] MEDS: ASPIRIN 81 MG ENTERIC TABLET PO (08:05)
[2024-07-06] MEDS: PANTOPRAZOLE 40 MG TABLET PO ×2 (08:05→21:08)
[2024-07-06] MEDS: lisinopriL 2.5 MG TABLET PO (08:06)
[2024-07-06] MEDS: ATORVASTATIN 40 MG TABLET PO (08:06)
[2024-07-06] MEDS: MIRABEGRON 50 MG ER TABLET PO (08:06)
[2024-07-06 08:52] LABS: Glucose Point of Care 158 mg/dl (65-105)
[2024-07-06] MEDS: PERFLUTREN LIPID MICROSPHERES 1.5 ML VIAL DILUTED TO 10 ML TOTAL VOLUME IV PUSH (09:20)
[2024-07-06] MEDS: ACETAMINOPHEN 325 MG TABLET 650 MG PO (10:19)
--- NOTE | 2024-07-06 10:23 | PM.IMPN ---
Progress Note: A&P Assessment and Plan (1) UTI (urinary tract infection): Code(s): N39.0 - Urinary tract infection, site not specified Status: Acute Assessment and Plan: As evidence by UA, urine wbc's > 100, urine culture pending -continue ceftriaxone 1 g IV Q 24 hours - follow culture and sensitivities- de escalate to PO antibiotics then-07/07 - possible discharge tomorrow as well if stable overnight (2) Syncope: Code(s): R55 - Syncope and collapse Status: Acute Assessment and Plan: Positive orthostatic readings -continue telemetry monitoring -history of TIAs -check echocardiogram in the a.m. -may consider Cardiology consult per a.m. rounding team -monitor orthostatic vitals daily -initiate fall precautions 07/06 feeling a lot better- reports no dizziness (3) HLD (hyperlipidemia): Code(s): E78.5 - Hyperlipidemia, unspecified Status: Acute Assessment and Plan: -continue home medication (4) GERD (gastroesophageal reflux disease): Code(s): K21.9 - Gastro-esophageal reflux disease without esophagitis Status: Acute Assessment and Plan: -continue home medication (5) Essential hypertension: Code(s): I10 - Essential (primary) hypertension Status: Acute Assessment and Plan: -b/p: stable/soft 110/54 -continue monitor vitals q.4 hours -hold home b/p: medication if systolic < 100 (6) Gross hematuria: Code(s): R31.0 - Gross hematuria Status: Acute Assessment and Plan: -ongoing for > 6 months -monitor I&O -urine culture pending -continue to monitor CBC, BMP daily will need to establish with urology and have an out workup Plan Continue home medications: Tamsulosin p.o. VTE Prophylaxis: Apixaban p.o. DIET: Heart healthy Anticipated hospital stay: > 2 days Code Status: DNR Time Spent With Patient Time with patient: Greater than 35 minutes Subjective Date/time seen: 07/06/24 10:23 Interval history: Syncope Narrative retrieved from H/P: Patient is a 78-year-old male with a PMHx: Of type 2 diabetes, GERD, history of DVT on Eliquis, ongoing hematuria presented to the emergency room with complaint of syncopal episode. Patient states he return from a today, he reports going in to use the bathroom, when he awoke to being on the floor. He is unable to recall any more details of the episode. He reports this was his 2nd episode syncope. ED Work-up reveals: Initial vitals: b/p 110/54, rr 18, pr 63 sp02 % 99 on RA T: 98.9, A&O x3 upon arrival per EMS, EKG showed sinus rhythm rate 84 with 1st degree AV block OR interval 360, QRS 134, QTC 394, left axis, no obvious ST elevations depressions, compared to prior EKG and they do appear very similar. CT head, C- spine, were negative, blood work revealed slightly low hgb, patient has history of ongoing hematuria > 6 months, UA significant for UTI, urine WBC > 100, urine culture pending 07/05 - pt is seen and examined. Pt is very pleasant, denies any acute issues. no chest pain, no sob, no n/v/d. 07/06 doing well- no acute events overnight. IV antibiotics today, work with pt/ot Review of Systems Review of Systems: All systems reviewed & are unremarkable except as noted in HPI and below Exam Const: General: comfortable Eyes: General: appearance normal, both eyes and all related structures Resp: Effort & Inspection: normal respiratory effort Auscultation: clear to auscultation bilaterally Cardio: Rate: regular rate Skin: General skin exam: normal color Neuro: Speech: normal speech Motor exam (neuro): 5/5 motor strength present throughout Sensory Exam: normal sensation Extrem: General: normal to inspection Psych: Mental Status: mental status grossly normal Objective Data Vital Signs Vital Signs: Vital Signs - 24 hr 07/05/24 12:00 07/05/24 14:00 07/05/24 16:00 Temperature 98.9 F Pulse Rate 83 78 72 Respiratory Rate 17 Blood Pres
--- NOTE | 2024-07-06 11:48 | IVDEFINITY ---
Prior to administration of IV Definity the patient was educated on the risks and benefits of the imaging enhancing agent including potential adverse side effects. The patient verbalized understanding. Allergies were verified. No exclusion criteria were identified and at least one of the following inclusion criteria were met: 1) physician request, 2) patient technically difficult to image (per the [place] [employer] guidelines of two or more segments not discernable within the apical view), or 3) questionable left ventricular function. ?
--- NOTE | 2024-07-06 11:49 | IVDEFINITY ---
Prior to administration of IV Definity the patient was educated on the risks and benefits of the imaging enhancing agent including potential adverse side effects. The patient verbalized understanding. Allergies were verified. No exclusion criteria were identified and at least one of the following inclusion criteria were met: 1) physician request, 2) patient technically difficult to image (per the [place] [employer]chocardi[employer] guidelines of two or more segments not discernable within the apical view), or 3) questionable left ventricular function. ?
[2024-07-06 12:00] LABS: Glucose Point of Care 226 mg/dl (65-105)
[2024-07-06 17:13] LABS: Glucose Point of Care 150 mg/dl (65-105)
[2024-07-07] VITALS (11 sets, daily range): BP systolic 105–125; BP diastolic 53–65; PULSE 72–114; RESP 16–18; TEMP 36.4–36.8; O2SAT 97–100
[2024-07-07 06:35] LABS: Basophils Percent Auto 0.3 % (0.2-1.2); Eosinophils Absolute Auto 0.1 K/mm3 (0-0.3); Hematocrit 32.4 % (42.0-52.0); Hemoglobin 10.3 g/dL (14.0-18.0); Immature Granulocyte Absolute 0.02 K/mm3 (0.00-0.031); Immature Granulocyte Percent A 0.3 % (0-0.5); Lymphocytes Absolute Auto 1.65 K/mm3 (0.9-3.2); Lymphocytes Percent Auto 27.9 % (18.3-44.2); Mean Corpuscular HGB Conc 31.8 g/dl (32-36); Mean Corpuscular Hemoglobin 27.7 pg (26-34); Mean Corpuscular Volume 87.1 fl (80-100); Monocytes Absolute Auto 0.6 K/mm3 (0.1-0.6); Monocytes Percent Auto 9.3 % (2.6-8.5); Neutrophils Absolute Auto 3.6 K/mm3 (1.3-6.7); Neutrophils Percent Auto 61.2 % (45.5-73.1); Platelet Count Result 245 k/mm3 (150-375); Red Blood Count 3.72 M/mm3 (4.6-6.20); Red Cell Distribution Width 16.1 % (11.5-14.5); White Blood Count 5.9 K/mm3 (4.5-10.0)
[2024-07-07 06:44] LABS: Alanine Aminotransferase 13 U/L (6-50); Albumin Level 3.3 g/dL (3.5-5.1); Alkaline Phosphatase 100 U/L (38-126); Anion Gap 3 mmol/L (4-12); Aspartate Amino Transferase 18 U/L (17-59); Bilirubin,Total 0.5 mg/dL (0.2-1.3); Blood Urea Nitrogen 15 mg/dL (9-20); Calcium 8.7 mg/dL (8.4-10.2); Carbon Dioxide 32 mmol/L (22-30); Chloride 99 mmol/L (98-107); Estimated CRCL calculation 61 ml/min; Estimated Glomerular Filt Rate > 60; Glucose 121 mg/dL (65-110); Sodium 134 mmol/L (137-145)
[2024-07-07] MEDS: GABAPENTIN 300 MG CAPSULE PO ×3 (08:19→16:20)
[2024-07-07] MEDS: APIXABAN 5 MG TABLET PO (08:19)
[2024-07-07] MEDS: ACETAMINOPHEN 325 MG TABLET 650 MG PO (08:19)
[2024-07-07] MEDS: TAMSULOSIN HCL 0.4 MG CAPSULE PO (08:20)
[2024-07-07] MEDS: MIRABEGRON 50 MG ER TABLET PO (08:20)
[2024-07-07] MEDS: ASPIRIN 81 MG ENTERIC TABLET PO (08:20)
[2024-07-07] MEDS: PANTOPRAZOLE 40 MG TABLET PO ×2 (08:20→21:08)
[2024-07-07] MEDS: ATORVASTATIN 40 MG TABLET PO (08:20)
[2024-07-07 11:50] LABS: Glucose Point of Care 159 mg/dl (65-105)
--- NOTE | 2024-07-07 13:48 | P.PNIM_ITS ---
Progress Note: A&P Assessment and Plan (1) Syncope: Code(s): R55 - Syncope and collapse Status: Acute Assessment and Plan: * Syncopal episode x2 * Previous history of CVA * CT head negative * MRI showed old lacunar infarcts and chronic small vessel ischemic disease * Echocardiogram LVEF of 50-55% no shunting * EKG sinus rhythm first-degree AV block * Positive orthostatics likely secondary to dehydration * Encouraged compression stockings well ambulating * Resume statin, holding ASA, and eliquis due to hematuria * Patient will need cardiac event monitor at discharge (2) Gross hematuria: Code(s): R31.0 - Gross hematuria Status: Acute Assessment and Plan: * Recurrent hematuria * HX Chronic bilateral hydronephrosis due to bladder outlet obstruction with bladder wall thickening and J-hooking distal ureters * Patient with history of VRE * Patient with previous cystoscopy with clot evacuation 01/2024 * Urology consulted * holding ASA and eliquis * Reports retention * UA showed no growth (3) Anemia: Code(s): D64.9 - Anemia, unspecified Status: Acute Assessment and Plan: * Hgb has steadily trended down since 01/2024 * Hgb stable at 10.3 has hematuria * Holding Eliquis and aspirin * Urology to evaluate * Transfuse PRBC if Hgb <7.0 Plan Code status: Full code per patient DVT prophylaxis: Eliquis on hold for hematuria Stress ulcer prophylaxis: Protonix 40 daily PT/OT notes: Ambulatory with cane Disposition: Patient continues admission to the medical unit for evaluation treatment of syncope and hematuria. Patient was found to be orthostatic positive with dehydration this could be cause a syncopal episode encourage compression stockings with ambulation new stroke ruled out but will need a cardiac event monitor at discharge. Urology was consulted for recurrent hematuria discharge pending their recommendation currently holding Eliquis and aspirin. Patient lives at home with son plan is to return home at discharge. Time Spent With Patient Time with patient: 15 - 25 minutes Subjective Date/time seen: 07/07/24 13:48 Interval history: Patient is a 78-year-old male who was admitted to the medical unit for further evaluation and treatment of syncopal episode and hematuria. 07/07/2024: Assumed CAre Patient alert and oriented still reports intermittent hematuria as well as urinary retention. Patient denied any dizziness or further syncopal episode. Patient denied any chest pain, shortness a breath, nausea, vomiting, fever chills. Patient does state he has abdominal pain over bladder bladder scan showed no retention. Review of Systems Review of Systems: All systems reviewed & are unremarkable except as noted in HPI and below Exam Narrative: Physical Exam: * GENERAL: Alert and oriented x 3. No acute distress. * EYES: PERRLA. * HEENT: Moist mucous membranes. * LUNGS: Clear to auscultation bilaterally. No accessory muscle use. * CARDIOVASCULAR: Tachycardia. No murmur. No JVD. S1-S2 * ABDOMEN: Soft, mild tenderness over bladder and non-distended. No palpable masses. * EXTREMITIES: No edema. Non-tender * SKIN: No rashes or lesions
--- NOTE | 2024-07-07 13:48 | PM.IMPN ---
Progress Note: A&P Assessment and Plan (1) Syncope: Code(s): R55 - Syncope and collapse Status: Acute Assessment and Plan: Syncopal episode x2 Previous history of CVA CT head negative MRI showed old lacunar infarcts and chronic small vessel ischemic disease Echocardiogram LVEF of 50-55% no shunting EKG sinus rhythm first-degree AV block Positive orthostatics likely secondary to dehydration Encouraged compression stockings well ambulating Resume statin, holding ASA, and eliquis due to hematuria Patient will need cardiac event monitor at discharge (2) Gross hematuria: Code(s): R31.0 - Gross hematuria Status: Acute Assessment and Plan: Recurrent hematuria HX Chronic bilateral hydronephrosis due to bladder outlet obstruction with bladder wall thickening and J-hooking distal ureters Patient with history of VRE Patient with previous cystoscopy with clot evacuation 01/2024 Urology consulted holding ASA and eliquis Reports retention UA showed no growth (3) Anemia: Code(s): D64.9 - Anemia, unspecified Status: Acute Assessment and Plan: Hgb has steadily trended down since 01/2024 Hgb stable at 10.3 has hematuria Holding Eliquis and aspirin Urology to evaluate Transfuse PRBC if Hgb <7.0 Plan Code status: Full code per patient DVT prophylaxis: Eliquis on hold for hematuria Stress ulcer prophylaxis: Protonix 40 daily PT/OT notes: Ambulatory with cane Disposition: Patient continues admission to the medical unit for evaluation treatment of syncope and hematuria. Patient was found to be orthostatic positive with dehydration this could be cause a syncopal episode encourage compression stockings with ambulation new stroke ruled out but will need a cardiac event monitor at discharge. Urology was consulted for recurrent hematuria discharge pending their recommendation currently holding Eliquis and aspirin. Patient lives at home with son plan is to return home at discharge. Time Spent With Patient Time with patient: 15 - 25 minutes Subjective Date/time seen: 07/07/24 13:48 Interval history: Patient is a 78-year-old male who was admitted to the medical unit for further evaluation and treatment of syncopal episode and hematuria. 07/07/2024: Assumed CAre Patient alert and oriented still reports intermittent hematuria as well as urinary retention. Patient denied any dizziness or further syncopal episode. Patient denied any chest pain, shortness a breath, nausea, vomiting, fever chills. Patient does state he has abdominal pain over bladder bladder scan showed no retention. Review of Systems Review of Systems: All systems reviewed & are unremarkable except as noted in HPI and below Exam Narrative: Physical Exam: GENERAL: Alert and oriented x 3. No acute distress. EYES: PERRLA. HEENT: Moist mucous membranes. LUNGS: Clear to auscultation bilaterally. No accessory muscle use. CARDIOVASCULAR: Tachycardia. No murmur. No JVD. S1-S2 ABDOMEN: Soft, mild tenderness over bladder and non-distended. No palpable masses. EXTREMITIES: No edema. Non-tender SKIN: No rashes or lesions. Skin warm, dry. NEUROLOGIC: No focal neurological deficits. CN II-XII grossly intact PSYCHIATRIC: Appropriate mood and affect. Good judgement and insight. Objective Data Vital Signs Vital Signs: Vital Signs - 24 hr 07/06/24 14:00 07/06/24 16:00 07/06/24 22:00 Temperature 97.5 F L 98.0 F Pulse Rate 74 62 72 Respiratory Rate 20 18 Blood Pressure 111/57 L 109/53 L Pulse Oximetry 99 98 Oxygen Delivery 07/06/24 20:00 07/06/24 20:00 07/07/24 00:00 Temperature Pulse Rate 71 80 Respiratory Rate Blood Pressure Pulse Oximetry Oxygen Delivery Room Air 07/07/24 04:00 07/07/24 06:00 07/07/24 08:19 Temperature 98.2 F Pulse Rate 72 73 86 Respiratory Rate 18 Blood Pressure 125/63 Pul
[2024-07-07 16:49] LABS: Glucose Point of Care 197 mg/dl (65-105)
[2024-07-07 20:23] LABS: Glucose Point of Care 170 mg/dl (65-105)
[2024-07-08] VITALS (8 sets, daily range): BP systolic 109–117; BP diastolic 54–61; PULSE 76–90; RESP 16–18; TEMP 36.2–36.9; O2SAT 98
[2024-07-08 06:19] LABS: Basophils Percent Auto 0.5 % (0.2-1.2); Eosinophils Absolute Auto 0.1 K/mm3 (0-0.3); Eosinophils Percent Auto 0.8 % (0-4.4); Hemoglobin 10.3 g/dL (14.0-18.0); Immature Granulocyte Absolute 0.03 K/mm3 (0.00-0.031); Immature Granulocyte Percent A 0.5 % (0-0.5); Lymphocytes Absolute Auto 1.83 K/mm3 (0.9-3.2); Lymphocytes Percent Auto 28.8 % (18.3-44.2); Mean Corpuscular HGB Conc 31.2 g/dl (32-36); Mean Corpuscular Volume 86.6 fl (80-100); Mean Platelet Volume 8.8 fl (7.4-10.4); Monocytes Absolute Auto 0.7 K/mm3 (0.1-0.6); Monocytes Percent Auto 10.7 % (2.6-8.5); Neutrophils Absolute Auto 3.7 K/mm3 (1.3-6.7); Neutrophils Percent Auto 58.7 % (45.5-73.1); Platelet Count Result 265 k/mm3 (150-375); Red Blood Count 3.81 M/mm3 (4.6-6.20); Red Cell Distribution Width 16.3 % (11.5-14.5); White Blood Count 6.4 K/mm3 (4.5-10.0)
[2024-07-08 06:32] LABS: Alanine Aminotransferase 15 U/L (6-50); Albumin Level 3.3 g/dL (3.5-5.1); Alkaline Phosphatase 103 U/L (38-126); Anion Gap 4 mmol/L (4-12); Aspartate Amino Transferase 26 U/L (17-59); Bilirubin,Total 0.6 mg/dL (0.2-1.3); Blood Urea Nitrogen 17 mg/dL (9-20); Calcium 8.7 mg/dL (8.4-10.2); Carbon Dioxide 31 mmol/L (22-30); Chloride 97 mmol/L (98-107); Estimated CRCL calculation 61 ml/min; Estimated Glomerular Filt Rate > 60; Glucose 133 mg/dL (65-110); Potassium 4.2 mmol/L (3.4-5.0); Sodium 132 mmol/L (137-145)
[2024-07-08 07:41] LABS: Glucose Point of Care 128 mg/dl (65-105)
[2024-07-08] MEDS: TAMSULOSIN HCL 0.4 MG CAPSULE PO (08:06)
[2024-07-08] MEDS: GABAPENTIN 300 MG CAPSULE PO ×3 (08:06→16:53)
[2024-07-08] MEDS: ATORVASTATIN 40 MG TABLET PO (08:06)
[2024-07-08] MEDS: MIRABEGRON 50 MG ER TABLET PO (08:06)
[2024-07-08] MEDS: PANTOPRAZOLE 40 MG TABLET PO (08:06)
--- NOTE | 2024-07-08 08:48 | WPDURCON ---
Assessment and Plan Assessment and plan (1) Gross hematuria: Code(s): R31.0 - Gross hematuria Status: Acute Assessment and Plan: Chronic, ongoing issue being managed by Dr. Freeman. No acute issues at this time and no need for acute urologic intervention. Will continue to follow-up as scheduled with Dr. Freeman. Given no active bleeding, okay to resume aspirin and Eliquis from urologic standpoint given his history of cardiac issues. Would hold if gross hematuria recurs (2) Anemia: Code(s): D64.9 - Anemia, unspecified Status: Acute Assessment and Plan: Hemoglobin and hematocrit have remained stable throughout admission. Would recommend continued monitoring on outpatient basis Urology Consult Note HPI Date Seen: 07/08/24 Requesting Physician: Mariaa Canales APRN Primary Care Provider: Sahara Lee, Consult Narrative Narrative: Cosme Javier is a 78 year old male with extensive history of gross hematuria who is currently admitted for syncope is being seen in consultation again for gross hematuria. He had onset of gross hematuria 11/2023 and since then has several cystoscopies for evaluation and this has been managed by Dr. Freeman. In 12/2023 he had resection of hyperemic areas of bladder with gemcitabine instillation and pathology revealed acute on chronic inflammation for which he was treated with course of antibiotics. 01/2024 he underwent cystoscopy with clot evacuation and cauterization. 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 Later in 03/2024 he had a repeat cystoscopy that showed severe inflammation with ulceration therefore in 04/2024 he had Kenalog injection completed. His symptoms have been stable since this time. His hemoglobin and hematocrit have been stable. He was admitted on 07/04/2024 after suffering a syncopal episode at home which has been evaluated and presumably related to orthostatic hypotension. His aspirin and Eliquis have been held due to hematuria though at this time his urine is clear and not having any active gross hematuria. He reports some mild dysuria and cloudy urine, though his urine culture is negative. He also reports sensation of incomplete emptying though has been voiding regularly. Review of Systems Review of Systems: All systems reviewed & are unremarkable except as noted in HPI and below PMFSH Past Medical History Medical History (Updated 07/07/24 @ 14:02 by Pam Sahu APRN) CAD (coronary artery disease) CVA (cerebral vascular accident) 1982, 1990 mild left weakness Diabetic neuropathy History of diabetes mellitus History of heart attack History of hypertension TIA (transient ischemic attack) x8 VTE (venous thromboembolism) Surgical History Surgical History History of transurethral resection of bladder tumor (TURBT) Family History Family History Father Diabetes mellitus Sibling Diabetes mellitus Mother Congestive heart disease Social History Social History Smoking packs per day: 1 Smoking cigarettes per day: 20.0 Years smoked: 40 Smoking pack-years: 40.00 Smoking status: Former smoker Tobacco type: cigarettes Smoking end date: 03/23/95 Alcohol intake: former Alcohol use details: QUIT HEAVY DRINKER PRIOR Substance use: former Substance use type: does not use 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
--- NOTE | 2024-07-08 09:56 | P.PNIM_ITS ---
Progress Note: A&P Assessment and Plan (1) Syncope: Code(s): R55 - Syncope and collapse Status: Acute Assessment and Plan: * Syncopal episode x2 * Previous history of CVA * CT head negative * MRI showed old lacunar infarcts and chronic small vessel ischemic disease * Echocardiogram LVEF of 50-55% no shunting * EKG sinus rhythm first-degree AV block * Positive orthostatics likely secondary to dehydration * Encouraged compression stockings well ambulating * Resume statin, holding ASA, and eliquis due to hematuria * Patient will need cardiac event monitor at discharge (2) Gross hematuria: Code(s): R31.0 - Gross hematuria Status: Acute Assessment and Plan: * Recurrent hematuria * HX Chronic bilateral hydronephrosis due to bladder outlet obstruction with bladder wall thickening and J-hooking distal ureters * Patient with history of VRE * Patient with previous cystoscopy with clot evacuation 01/2024 * Urology consulted * holding ASA and eliquis * Reports retention * UA showed no growth (3) Anemia: Code(s): D64.9 - Anemia, unspecified Status: Acute Assessment and Plan: * Hgb has steadily trended down since 01/2024 * Hgb stable at 10.3 has hematuria * Holding Eliquis and aspirin * Urology to evaluate * Transfuse PRBC if Hgb <7.0 Plan Code status: Full code per patient DVT prophylaxis: Eliquis on hold for hematuria Stress ulcer prophylaxis: Protonix 40 daily PT/OT notes: Ambulatory with cane Disposition: Patient continues admission to the medical unit for evaluation treatment of syncope and hematuria. Patient was found to be orthostatic positive with dehydration this could be cause a syncopal episode encourage compression stockings with ambulation new stroke ruled out but will need a cardiac event monitor at discharge. Urology was consulted for recurrent hematuria discharge pending their recommendation currently holding Eliquis and aspirin. Patient lives at home with son plan is to return home at discharge. Subjective Date/time seen: 07/08/24 09:56 Review of Systems Review of Systems: All systems reviewed & are unremarkable except as noted in HPI and below Exam Narrative: General: appears comfortable, in no acute distress Respiratory: breathing is unlabored with even chest rise/fall, lungs are clear without wheezing, rhonchi, and crackles Cardiovascular: Rate and rhythm regular, normal s1s2, no murmur Abdomen: Soft, round, non-tender, active bowel sounds Extremities: No cyanosis, edema, clubbing. Pulses 2/2 Neuro: A&O x 4 Skin: Warm, dry, intact Objective Data Vital Signs Vital Signs: Vital Signs - 24 hr 07/07/24 14:00 07/07/24 16:00 07/07/24 20:14 Temperature 97.5 F L 98.1 F Pulse Rate 87 85 82 Respiratory Rate 18 16 Blood Pressure 105/54 L 110/53 L Pulse Oximetry 100 97 Oxygen Delivery 07/07/24 20:00 07/07/24 20:00 07/08/24 00:00 Temperature Pulse Rate 80 78 Respiratory Rate Blood Pressure Pulse Oximetr
--- NOTE | 2024-07-08 09:56 | PM.IMPN ---
Progress Note: A&P Assessment and Plan (1) Syncope: Code(s): R55 - Syncope and collapse Status: Acute Assessment and Plan: Syncopal episode x2 Previous history of CVA CT head negative MRI showed old lacunar infarcts and chronic small vessel ischemic disease Echocardiogram LVEF of 50-55% no shunting EKG sinus rhythm first-degree AV block Positive orthostatics likely secondary to dehydration Encouraged compression stockings well ambulating Resume statin, holding ASA, and eliquis due to hematuria Patient will need cardiac event monitor at discharge (2) Gross hematuria: Code(s): R31.0 - Gross hematuria Status: Acute Assessment and Plan: Recurrent hematuria HX Chronic bilateral hydronephrosis due to bladder outlet obstruction with bladder wall thickening and J-hooking distal ureters Patient with history of VRE Patient with previous cystoscopy with clot evacuation 01/2024 Urology consulted holding ASA and eliquis Reports retention UA showed no growth (3) Anemia: Code(s): D64.9 - Anemia, unspecified Status: Acute Assessment and Plan: Hgb has steadily trended down since 01/2024 Hgb stable at 10.3 has hematuria Holding Eliquis and aspirin Urology to evaluate Transfuse PRBC if Hgb <7.0 Plan Code status: Full code per patient DVT prophylaxis: Eliquis on hold for hematuria Stress ulcer prophylaxis: Protonix 40 daily PT/OT notes: Ambulatory with cane Disposition: Patient continues admission to the medical unit for evaluation treatment of syncope and hematuria. Patient was found to be orthostatic positive with dehydration this could be cause a syncopal episode encourage compression stockings with ambulation new stroke ruled out but will need a cardiac event monitor at discharge. Urology was consulted for recurrent hematuria discharge pending their recommendation currently holding Eliquis and aspirin. Patient lives at home with son plan is to return home at discharge. Subjective Date/time seen: 07/08/24 09:56 Review of Systems Review of Systems: All systems reviewed & are unremarkable except as noted in HPI and below Exam Narrative: General: appears comfortable, in no acute distress Respiratory: breathing is unlabored with even chest rise/fall, lungs are clear without wheezing, rhonchi, and crackles Cardiovascular: Rate and rhythm regular, normal s1s2, no murmur Abdomen: Soft, round, non-tender, active bowel sounds Extremities: No cyanosis, edema, clubbing. Pulses 2/2 Neuro: A&O x 4 Skin: Warm, dry, intact Objective Data Vital Signs Vital Signs: Vital Signs - 24 hr 07/07/24 14:00 07/07/24 16:00 07/07/24 20:14 Temperature 97.5 F L 98.1 F Pulse Rate 87 85 82 Respiratory Rate 18 16 Blood Pressure 105/54 L 110/53 L Pulse Oximetry 100 97 Oxygen Delivery 07/07/24 20:00 07/07/24 20:00 07/08/24 00:00 Temperature Pulse Rate 80 78 Respiratory Rate Blood Pressure Pulse Oximetry Oxygen Delivery Room Air 07/08/24 04:00 07/08/24 05:12 07/08/24 08:00 Temperature 97.2 F L 98.1 F Pulse Rate 76 90 81 Respiratory Rate 16 18 Blood Pressure 117/54 L 111/58 L Pulse Oximetry 98 98 Oxygen Delivery 07/08/24 09:16 07/08/24 09:16 07/08/24 08:00 Temperature Pulse Rate 77 Respiratory Rate Blood Pressure 113/61 109/56 L Pulse Oximetry Oxygen Delivery 07/08/24 08:00 Temperature Pulse Rate Respiratory Rate Blood Pressure Pulse Oximetry Oxygen Delivery Room Air Intake/Output Intake/Output: Intake & Output 07/05/24 07/06/24 07/07/24 07/08/24 23:59 23:59 23:59 23:59 Intake Total 1148 1680 950 240 Output Total 400 1150 1075 250 Balance 748 530 -125 -10 Meds/Results Medications: Active Medications Generic Name Dose Route Start Last Admin Trade Name Freq PRN Reason Stop Dose Admin Acetaminophen 650 mg 07/05/24 15:3
[2024-07-08 11:46] LABS: Glucose Point of Care 172 mg/dl (65-105)
--- NOTE | 2024-07-08 15:24 | P.DS_ITS ---
DS: Admitting Diagnosis Discharge Date 07/08 Admitting Diagnosis Fall DS: Discharge Diagnosis Discharge Diagnosis (1) Syncope: Code(s): R55 - Syncope and collapse Status: Acute (2) Gross hematuria: Code(s): R31.0 - Gross hematuria Status: Acute (3) Anemia: Code(s): D64.9 - Anemia, unspecified Status: Acute Plan Assessment and Plan (1) Syncope: Code(s): R55 - Syncope and collapse Status: Acute Assessment and Plan: * Syncopal episode x2 * Previous history of CVA * CT head negative * MRI showed old lacunar infarcts and chronic small vessel ischemic disease * Echocardiogram LVEF of 50-55% no shunting * EKG sinus rhythm first-degree AV block * Positive orthostatics likely secondary to dehydration * Encouraged compression stockings well ambulating * Resume statin, holding ASA, and eliquis due to hematuria * Patient will need cardiac event monitor at discharge (2) Gross hematuria: Code(s): R31.0 - Gross hematuria Status: Acute Assessment and Plan: * Recurrent hematuria * HX Chronic bilateral hydronephrosis due to bladder outlet obstruction with bladder wall thickening and J-hooking distal ureters * Patient with history of VRE * Patient with previous cystoscopy with clot evacuation 01/2024 * Urology consulted * holding ASA and eliquis * Reports retention * UA showed no growth (3) Anemia: Code(s): D64.9 - Anemia, unspecified Status: Acute Assessment and Plan: * Hgb has steadily trended down since 01/2024 * Hgb stable at 10.3 has hematuria * Holding Eliquis and aspirin * Urology to evaluate * Transfuse PRBC if Hgb <7.0 Plan Code status: Full code per patient DVT prophylaxis: Eliquis on hold for hematuria Stress ulcer prophylaxis: Protonix 40 daily PT/OT notes: Ambulatory with cane Disposition: Patient continues admission to the medical unit for evaluation treatment of syncope and hematuria. Patient was found to be orthostatic positive with dehydration this could be cause a syncopal episode encourage compression stockings with ambulation new stroke ruled out but will need a cardiac event monitor at discharge. Urology was consulted for recurrent hematuria discharge pending their recommendation currently holding Eliquis and aspirin. Patient lives at home with son plan is to return home at discharge. DS: Summary Hospital Course Reason for hospitalization: Syncopal episode Hospital Course: Patient is a 78-year-old male with a PMHx: Of type 2 diabetes, GERD, history of DVT on Eliquis, ongoing hematuria presented to the emergency room with complaint of syncopal episode. Patient states he return from a today, he reports going in to use the bathroom, when he awoke to being on the floor. He is unable to recall any more details of the episode. He reports this was his 2nd episode syncope. ED Work-up reveals: Initial vitals: b/p 110/54, rr 18, pr 63 sp02 % 99 on RA T: 98.9, A&O x3 upon arrival per EMS, EKG showed sinus rhythm rate 84 with 1st degree AV block TN interval 360, QRS 134, QTC 394, left axis, no obvious ST elevations depressions, compared to prior EKG and they do appear very similar. CT head, C- spine, were negative, blood
--- NOTE | 2024-07-08 15:24 | PM.DS ---
DS: Admitting Diagnosis Discharge Date 07/08 Admitting Diagnosis Fall DS: Discharge Diagnosis Discharge Diagnosis (1) Syncope: Code(s): R55 - Syncope and collapse Status: Acute (2) Gross hematuria: Code(s): R31.0 - Gross hematuria Status: Acute (3) Anemia: Code(s): D64.9 - Anemia, unspecified Status: Acute Plan Assessment and Plan (1) Syncope: Code(s): R55 - Syncope and collapse Status: Acute Assessment and Plan: Syncopal episode x2 Previous history of CVA CT head negative MRI showed old lacunar infarcts and chronic small vessel ischemic disease Echocardiogram LVEF of 50-55% no shunting EKG sinus rhythm first-degree AV block Positive orthostatics likely secondary to dehydration Encouraged compression stockings well ambulating Resume statin, holding ASA, and eliquis due to hematuria Patient will need cardiac event monitor at discharge (2) Gross hematuria: Code(s): R31.0 - Gross hematuria Status: Acute Assessment and Plan: Recurrent hematuria HX Chronic bilateral hydronephrosis due to bladder outlet obstruction with bladder wall thickening and J-hooking distal ureters Patient with history of VRE Patient with previous cystoscopy with clot evacuation 01/2024 Urology consulted holding ASA and eliquis Reports retention UA showed no growth (3) Anemia: Code(s): D64.9 - Anemia, unspecified Status: Acute Assessment and Plan: Hgb has steadily trended down since 01/2024 Hgb stable at 10.3 has hematuria Holding Eliquis and aspirin Urology to evaluate Transfuse PRBC if Hgb <7.0 Plan Code status: Full code per patient DVT prophylaxis: Eliquis on hold for hematuria Stress ulcer prophylaxis: Protonix 40 daily PT/OT notes: Ambulatory with cane Disposition: Patient continues admission to the medical unit for evaluation treatment of syncope and hematuria. Patient was found to be orthostatic positive with dehydration this could be cause a syncopal episode encourage compression stockings with ambulation new stroke ruled out but will need a cardiac event monitor at discharge. Urology was consulted for recurrent hematuria discharge pending their recommendation currently holding Eliquis and aspirin. Patient lives at home with son plan is to return home at discharge. DS: Summary Hospital Course Reason for hospitalization: Syncopal episode Hospital Course: Patient is a 78-year-old male with a PMHx: Of type 2 diabetes, GERD, history of DVT on Eliquis, ongoing hematuria presented to the emergency room with complaint of syncopal episode. Patient states he return from a today, he reports going in to use the bathroom, when he awoke to being on the floor. He is unable to recall any more details of the episode. He reports this was his 2nd episode syncope. ED Work-up reveals: Initial vitals: b/p 110/54, rr 18, pr 63 sp02 % 99 on RA T: 98.9, A&O x3 upon arrival per EMS, EKG showed sinus rhythm rate 84 with 1st degree AV block [place] interval 360, QRS 134, QTC 394, left axis, no obvious ST elevations depressions, compared to prior EKG and they do appear very similar. CT head, C- spine, were negative, blood work revealed slightly low hgb, patient has history of ongoing hematuria > 6 months, UA significant for UTI, urine WBC > 100, urine culture pending The patient was admitted and treated for urinary tract infection. Urine culture did not grow any organism however given his syncopal episode at home and urinary frequency it was decided to treat him for a urinary tract infection. He was monitored on telemetry showing a normal sinus rhythm and first-degree AV block. 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 A technically poor echocardiogram
[2024-07-08 15:56] LABS: Iron 23 ug/dL (49-181)
[2024-07-08 16:05] LABS: Percent Iron Saturation 8 % (20-50)
[2024-07-08 16:21] LABS: Glucose Point of Care 196 mg/dl (65-105)
[2024-07-08] MEDS: CEFDINIR 300 MG CAPSULE PO (16:52)
== END 2024-07-08 17:05 | disposition home or self-care (01) | DRG 312 ==
LOC: ANHED 17:20 → ANH3MEDSUR 18:51
PROVIDERS: Nurse Practitioner; Nurse Practitioner Family; Admitting Provider General Practice; Emergency Provider Emergency Medicine; PCP Internal Medicine; Visit Provider Nurse Practitioner Acute Care
DX: I95.1 Orthostatic hypotension (principal); N39.0 Urinary tract infection, site not specified; I69.354 Hemiplegia and hemiparesis following cerebral infarction affecting left non-dominant side; E86.0 Dehydration; K21.9 Gastro-esophageal reflux disease without esophagitis; R31.0 Gross hematuria; I25.10 Atherosclerotic heart disease of native coronary artery without angina pectoris; E11.42 Type 2 diabetes mellitus with diabetic polyneuropathy; E78.5 Hyperlipidemia, unspecified; I10 Essential (primary) hypertension; D50.9 Iron deficiency anemia, unspecified; Z66 Do not resuscitate; M25.572 Pain in left ankle and joints of left foot; W22.09XA Striking against other stationary object, initial encounter; Z86.718 Personal history of other venous thrombosis and embolism; Z79.01 Long term (current) use of anticoagulants; I25.2 Old myocardial infarction; Z87.891 Personal history of nicotine dependence; Z79.82 Long term (current) use of aspirin; Z79.84 Long term (current) use of oral hypoglycemic drugs
CPT/HCPCS: 36415; 70450; 70551; 71046; 72125; 73610; 80053; 81001; 82948; 83540; 83550; 85025; 87086; 93005; 96365; 96375; 97110; 97116; 97161; 99285; A9270; C8929; G0378; J0696; Q9957

== ENCOUNTER 2024-07-25 11:31 | Emergency (ER) | payer MEDICARE, OTHER, MEDICAID, SELFPAY ==
[2024-07-25 12:28] VITALS: BP 140/60; PULSE 66; RESP 17; TEMP 36.5; O2SAT 100
--- NOTE | 2024-07-25 13:47 | ED.MALEGU ---
HPI - Male Genitourinary General Chief complaint: Urogenital-Male Stated complaint: catheter problems Time Seen by Provider: 07/25/24 13:34 Source: patient Limitations: no limitations History of Present Illness HPI Narrative: Patient presents with complaint of urinary catheter problems. Omer catheter was placed [address] Freeman. states he does not chronically have an indwelling Omer. He has noted that he has continued to have urine around the catheter and had some bleeding this morning after the drainage tube accidentally caught on his bed stand. Patient examined after catheter is replaced by nursing staff. he denies any abdominal pain. No hematuria. He denies any penile pain or drainage at this time. He states he has no complaints. Related Data Home Medications Medication Instructions Recorded Confirmed apixaban 5 mg tablet (Eliquis) 5 mg PO BID 01/13/24 07/04/24 aspirin 81 mg tablet,delayed 81 mg PO DAILY 01/13/24 07/04/24 release (Adult Low Dose Aspirin) atorvastatin 80 mg tablet 40 mg PO DAILY 01/13/24 07/04/24 dulaglutide 1.5 mg/0.5 mL 1.5 mg subcut WEEKLY 01/13/24 07/04/24 subcutaneous pen injector (Trulicity) mirabegron 50 mg tablet,extended 50 mg PO DAILY 01/13/24 07/04/24 release 24 hr (Myrbetriq) omeprazole 20 mg capsule,delayed 20 mg PO BID 01/13/24 07/04/24 release tamsulosin 0.4 mg capsule 0.4 mg PO DAILY 01/13/24 07/04/24 gabapentin 300 mg capsule 300 mg PO TID 01/29/24 07/05/24 lisinopril 5 mg tablet 2.5 mg PO DAILY 04/08/24 07/04/24 Allergies Allergy/AdvReac Type Severity Reaction Status Date / Time iodine Allergy Rash Verified 07/25/24 12:28 Penicillins Allergy Swelling Verified 07/25/24 12:28 amitriptyline AdvReac BECOMES Verified 07/25/24 12:28 VIOLENT/COMBATIVE codeine AdvReac avoids Verified 07/25/24 12:28 -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 AdvReac Nausea and Verified 07/25/24 12:28 Vomiting PMFSH Past Medical History Medical History (Updated 07/26/24 @ 00:01 by Background Daemon) CAD (coronary artery disease) CVA (cerebral vascular accident) 1982, 1990 mild left weakness Diabetic neuropathy History of diabetes mellitus History of heart attack History of hypertension TIA (transient ischemic attack) x8 VTE (venous thromboembolism) Surgical History Surgical History History of transurethral resection of bladder tumor (TURBT) Family History Family History Father Diabetes mellitus Sibling Diabetes mellitus Mother Congestive heart disease Social History Social History Smoking packs per day: 1 Smoking cigarettes per day: 20.0 Years smoked: 40 Smoking pack-years: 40.00 Smoking status: Former smoker Tobacco type: cigarettes Smoking end date: 03/23/95 Alcohol intake: former Alcohol use details: QUIT HEAVY DRINKER PRIOR Substance use: former Substance use type: does not use 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 HEAD: Normocephalic, atraumatic. EYES: Non injected, non icteric ENT: Nares clear, no rhinorrhea or epistaxis. NECK: Supple. CHEST: Speaking in full sentences. No respiratory distress. HEART: Regular rate and rhythm. . ABDOMEN: Soft, nondistended. Nontender to palpation. No rigidity or guarding. : Normal male external genitalia with indwelling Omer in place. No penile discharge or urine leaking around the catheter. Yellow urine in drainage tube and in collection bag at bedside. EXTREMITIES: Normal range of motion. No lower extremity edema. SKIN: Warm, dry, no rash. NEURO: No focal deficits. Alert and oriented. PSYCH: Normal mood and affect. Course Vital Signs Vital signs: Vital Signs Temperature 97.7 F 07/25/24 12:28 Pulse Rate 66 07/25/24 12:28 Respiratory Rate 17 07/25/24 12:28 Blood Pressure 140/60 07/25/24 12:28 Pulse Oximetry 100 07/25/24 12:28 Temperature 97.7 F 07/25/24 12:28 Pulse Rate 66 07/25/24 12:28 Respiratory Rate 17 07/25/24 12:28 Blood Pressure 140/60 07/25/24 12:28 Pulse Oximetry 100 07/25/24 12:28 MDM - Male Genitourinary MDM Narrative Medical decision making narrative: Patient presents with complaint of issues with his urinary catheter which was placed by urologist Dr. Freeman 2 days ago. He states he does not chronically have an indwelling Omer prior to this. he had been complaining of urine draining around the catheter and some bleeding this morning after the drainage tube accidentally caught on his bedside stand. In the emergency department they are afebrile with vital signs within normal limits. Catheter had already been Changed /replaced by nursing staff prior to my assessment At which time he has no complaints and a reassuring physical exam. No bacteria seen on urinalysis but with the abundance of white blood cells and leukocyte esterase, will treat. First dose antibiotic given in the emergency department with the rest of the course prescribed. Discharged stable condition. Differential Diagnosis Differential diagnosis: Likely urinary tract infection, urethritis and other ( Catheter malfunction) Lab Data Attestation: I reviewed the patient's lab results. Labs: Lab Results 07/25/24 Range/Units 14:02 Urine Color Yellow (Yellow) Urine Appearance Turbid H (Clear) Urine pH 6.0 (5.0-9.0) Ur Specific [place] 1.010 (1.001-1.035) Urine Protein 2+ H (Negative) mg/dL Urine Glucose (UA) Negative (Negative) mg/dL Urine Ketones Negative (Negative) mg/dL Ur Blood (Man) 2+ H (Negative) Urine Nitrate Negative (Negative) Urine Bilirubin Negative (Negative) Urine Urobilinogen 0.2 (<2.0) mg/dL Leukocyte Esterase Rfl 3+ H (Negative) NOEL/UL Urine RBC 51-100 H (0-2) /hpf Urine WBC >100 H (0-3) /hpf Ur Squamous Epith Cells None seen (Few) /hpf Urine Bacteria None seen /hpf Urine Casts 0-2 Discharge Plan Discharge Clinical Impression: Encounter for Omer catheter replacement, UTI (urinary tract infection) due to urinary indwelling Omer catheter Patient Disposition: Home, Self-Care Condition: Stable Instructions: Antibiotic Form, Urinary Tract Infection in Men (ED), Omer Catheter Placement and Care (ED), Catheter-associated Urinary Tract Infection (ED), How to Change a Catheter Drainage Bag (DC) Additional Instructions: Your catheter was replaced in the emergency department today due to the issues you are having. The issues then resolved. Your urinalysis was concerning for a possible urinary tract infection and for this reason your treating it as such. You received the 1st dose of your antibiotic in the emergency department with the rest of the course prescribed. You will be notified if, based on the urine culture, this antibiotic regimen needs to be changed. Follow-up with Dr Freeman. Return to the emergency department with any new or worsening symptoms. Prescriptions: New sulfamethoxazole-trimethoprim [Bactrim DS] 800-160 mg tablet 1 tablet PO Q12H 7 Days Qty: 14 0RF No Action atorvastatin 80 mg tablet 40 mg PO DAILY Eliquis 5 mg Tablet 5 mg PO BID Hold Instructions: Resume on 04/12/24. tamsulosin 0.4 mg capsule 0.4 mg PO DAILY omeprazole 20 mg Capsule,Delayed Release(Dr/Ec) 20 mg PO BID mirabegron [Myrbetriq] 50 mg tablet extended release 24 hr 50 mg PO DAILY aspirin [Adult Low Dose Aspirin] 81 mg Tablet,Delayed Release (Dr/Ec) 81 mg PO DAILY Hold Instructions: Resume on 01/18/24. Trulicity 1.5 mg/0.5 mL pen injector 1.5 mg SUBCUT WEEKLY Patient Comments: TAKES ON saturday Rx Instructions: saturday gabapentin 300 mg capsule 300 mg PO TID lisinopril 5 mg Tablet 2.5 mg PO DAILY Hold Instructions: Resume on 07/22/24. Please hold until you follow up with your PCP cefdinir 300 mg Capsule 300 mg PO BID 3 Days Qty: 6 0RF ferrous sulfate 325 mg (65 mg iron) tablet 325 mg PO DAILY Qty: 90 0RF Follow-up/Referrals: Rosa,MD Sahara [Primary Care Provider] - Hugo Freeman MD [Physician] - (Urology) Stand Alone Forms: Work/School Release IP Time of Disposition: 14:52
[2024-07-25 14:12] LABS: Add Urine Microscopic? YES; Appearance Urine Turbid (Clear); Bacteria Urine None Seen /hpf; Bilirubin Urine Negative (Negative); Blood Urine 2+ (Negative); Color Urine Yellow (Yellow); Glucose Urine UA Negative (Negative); Ketones Urine Negative (Negative); Leukocyte Esterase Ur 3+ LEU/UL (Negative); Nitrate Urine Negative (Negative); Non Pathogenic Casts 0-2; Protein Urine 2+ mg/dL (Negative); RBC Urine 51-100 /hpf (0-2); Squamous Epithelial Cell Urine None Seen /hpf (Few); Urobilinogen Urine 0.2 mg/dL (<2.0); WBC Urine >100 /hpf (0-3)
[2024-07-25] MEDS: SULFAMETHOXAZOLE/TRIMETHOPRIM 800/160 MG DS TABLET 1 TAB PO (14:40)
== END 2024-07-25 15:07 | disposition home or self-care (01) ==
PROVIDERS: Emergency Provider Student in an Organized Health Care Education/Training Program; PCP Internal Medicine
DX: N39.0 Urinary tract infection, site not specified (principal); Z46.6 Encounter for fitting and adjustment of urinary device; I25.10 Atherosclerotic heart disease of native coronary artery without angina pectoris; E11.9 Type 2 diabetes mellitus without complications; I10 Essential (primary) hypertension; Z86.73 Personal history of transient ischemic attack (TIA), and cerebral infarction without residual deficits; Z87.891 Personal history of nicotine dependence
CPT/HCPCS: 51702; 81001; 87086; 99283; A9270

== ENCOUNTER 2024-08-25 00:27 | Emergency (ER) | payer MEDICARE, OTHER, SELFPAY ==
--- NOTE | ~2024-08-25 | CT_ITS ---
Non-contrast CT scan of the Abdomen and Pelvis Clinical indication: Hematuria Technique: 2.5 mm axial scans were obtained through the abdomen and pelvis without intravenous or or al contrast. Dose reduction technique was used on this scan by utilizing automated exposure control a nd iterative reconstruction technique. The dose-length product (DLP) was 797.54 mGy-cm. COMPARISON: 03/29/2024 Findings: Images through the lung bases reveal stable areas of right basilar consolidation, most com patible with chronic scarring or atelectasis. There is very mild bilateral hydroureteronephrosis. Small nonobstructing left renal stones measured t o 3 mm. No right-sided stones seen. No ureteral stones seen on either side. The liver, spleen, pancreas, and adrenals appear normal. Cholecystectomy clips are present. There is no aortic aneurysm. There is no evidence of bowel obstruction. Sigmoid diverticulosis noted. Images through the pelvis were performed. There is no evidence of ascites or lymphadenopathy. Urinary bladder collapsed around a Omer catheter. Suspected urinary bladder wall thickening and perivesical stranding despite decompression. Small fat-containing right inguinal hernia noted. 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 Impression: Suspected cystitis. Correlate with urinalysis. Minimal bilateral hydroureteronephrosis. No obstructing stones seen. Small nonobstructing left renal stones are present. 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 Reviewed, dictated and finalized at [facility]. [facility] COUNSELOR Impression: Suspected cystitis. Correlate with urinalysis. Minimal bilateral hydroureteronephrosis. No obstructing stones seen. Small nono bstructing left renal stones are present. 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
[2024-08-25 00:34] VITALS: BP 144/56; PULSE 64; RESP 15; TEMP 36.1; O2SAT 98
[2024-08-25 04:00] VITALS: BP 136/70; PULSE 62; RESP 16; TEMP 36.6; O2SAT 100
[2024-08-25] MEDS: SODIUM CHLORIDE 0.9% IV 1,000 ML 999 ML IV CONT (04:33)
[2024-08-25 04:43] LABS: Basophils Percent Auto 0.6 % (0.2-1.2); Eosinophils Absolute Auto 0.2 K/mm3 (0-0.3); Eosinophils Percent Auto 4.3 % (0-4.4); Hematocrit 34.3 % (42.0-52.0); Hemoglobin 10.9 g/dL (14.0-18.0); Immature Granulocyte Absolute 0.01 K/mm3 (0.00-0.031); Immature Granulocyte Percent A 0.2 % (0-0.5); Lymphocytes Absolute Auto 1.88 K/mm3 (0.9-3.2); Lymphocytes Percent Auto 35.5 % (18.3-44.2); Mean Corpuscular HGB Conc 31.8 g/dl (32-36); Mean Corpuscular Hemoglobin 29.4 pg (26-34); Mean Corpuscular Volume 92.5 fl (80-100); Mean Platelet Volume 8.6 fl (7.4-10.4); Monocytes Absolute Auto 0.5 K/mm3 (0.1-0.6); Monocytes Percent Auto 8.7 % (2.6-8.5); Neutrophils Absolute Auto 2.7 K/mm3 (1.3-6.7); Neutrophils Percent Auto 50.7 % (45.5-73.1); Platelet Count Result 211 k/mm3 (150-375); Red Blood Count 3.71 M/mm3 (4.6-6.20); Red Cell Distribution Width 18.4 % (11.5-14.5); White Blood Count 5.3 K/mm3 (4.5-10.0)
[2024-08-25 04:56] LABS: Alanine Aminotransferase 22 U/L (6-50); Alkaline Phosphatase 111 U/L (38-126); Anion Gap 2 mmol/L (4-12); Aspartate Amino Transferase 30 U/L (17-59); Bilirubin,Total 0.4 mg/dL (0.2-1.3); Blood Urea Nitrogen 27 mg/dL (9-20); Calcium 9.3 mg/dL (8.4-10.2); Carbon Dioxide 32 mmol/L (22-30); Chloride 103 mmol/L (98-107); Estimated CRCL calculation 60 ml/min; Estimated Glomerular Filt Rate > 60; Glucose 118 mg/dL (65-110); Potassium 4.4 mmol/L (3.4-5.0); Sodium 137 mmol/L (137-145)
[2024-08-25 05:10] LABS: Add Urine Microscopic? YES; Appearance Urine Cloudy (Clear); Bilirubin Urine Negative (Negative); Blood Urine 3+ (Negative); Glucose Urine UA Negative (Negative); Ketones Urine Negative (Negative); Leukocyte Esterase Ur 2+ LEU/UL (Negative); Need Manual Microscopic Reviewed; Nitrate Urine Negative (Negative); Non Pathogenic Casts 0-2; Protein Urine 3+ mg/dL (Negative); RBC Urine >100 /hpf (0-2); Squamous Epithelial Cell Urine None Seen /hpf (Few); Urobilinogen Urine 0.2 mg/dL (<2.0); WBC Urine >100 /hpf (0-3); pH Urine 5.5 (5.0-9.0)
[2024-08-25 05:15] LABS: Color Urine Light Red (Yellow)
[2024-08-25 05:16] LABS: Bacteria Urine 1+ /hpf
[2024-08-25 05:37] VITALS: BP 122/83; PULSE 95; RESP 18; TEMP 36.6; O2SAT 96
--- NOTE | 2024-08-25 06:05 | ED_ITS ---
HPI - General Adult General Chief complaint: Urogenital-Male Stated complaint: hematuria Time Seen by Provider: 08/25/24 03:35 History of Present Illness HPI narrative: patient 79-year-old gentleman presents emergency department with chief complaint of hematuria patient reports around 3:00 p.m. he started having blood in his catheter reports that he has had recent episodes of hematuria in the past patient reports no pain reports that his catheters about a month old Related Data Home Medications Medication Instructions Recorded Confirmed apixaban 5 mg tablet (Eliquis) 5 mg PO BID 01/13/24 07/04/24 aspirin 81 mg tablet,delayed 81 mg PO DAILY 01/13/24 07/04/24 release (Adult Low Dose Aspirin) atorvastatin 80 mg tablet 40 mg PO DAILY 01/13/24 07/04/24 dulaglutide 1.5 mg/0.5 mL 1.5 mg subcut WEEKLY 01/13/24 07/04/24 subcutaneous pen injector (Trulicity) mirabegron 50 mg tablet,extended 50 mg PO DAILY 01/13/24 07/04/24 release 24 hr (Myrbetriq) omeprazole 20 mg capsule,delayed 20 mg PO BID 01/13/24 07/04/24 release tamsulosin 0.4 mg capsule 0.4 mg PO DAILY 01/13/24 07/04/24 gabapentin 300 mg capsule 300 mg PO TID 01/29/24 07/05/24 lisinopril 5 mg tablet 2.5 mg PO DAILY 04/08/24 07/04/24 Allergies Allergy/AdvReac Type Severity Reaction Status Date / Time iodine Allergy Rash Verified 07/25/24 12:28 Penicillins Allergy Swelling Verified 07/25/24 12:28 amitriptyline AdvReac BECOMES Verified 07/25/24 12:28 VIOLENT/COMBATIVE codeine AdvReac avoids Verified 07/25/24 12:28 -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 Nursing and ancillary documentation was reviewed. [facility] Past Medical History Medical History CAD (coronary artery disease) CVA (cerebral vascular accident) 1982, 1990 mild left weakness Diabetic neuropathy History of diabetes mellitus History of heart attack History of hypertension TIA (transient ischemic attack) x8 VTE (venous thromboembolism) Surgical History Surgical History History of transurethral resection of bladder tumor (TURBT) Family History Family History Father Diabetes mellitus Sibling Diabetes mellitus Mother Congestive heart disease Social History Social History Smoking packs per day: 1 Smoking cigarettes per day: 20.0 Years smoked: 40 Smoking pack-years: 40.00 Smoking status: Former smoker Tobacco type: cigarettes Smoking end date: 03/23/95 Alcohol intake: former Alcohol use details: QUIT HEAVY DRINKER PRIOR Substance use: former Substance use type: does not use 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 HEAD: Normocephalic, atraumatic. EYES: PERRLA and EOMI. ENT: Nares clear, no rhinorrhea or epistaxis. Mucous membranes moist. NECK: Supple. CHEST: Clear to auscultation. No respiratory distress. HEART: Regular rate and rhythm. No murmur heard. Normal peripheral pulses. ABDOMEN: Soft, nontender, nondistended, normal active bowel sounds. : Omer in place, dark colored urine, no clots EXTREMITIES: Normal range of motion. No edema. SKIN: Warm, dry, no rash. NEURO: No focal deficits. Alert and oriented x3. PSYCH: Normal mood and affect. Course Vital Signs Vital signs: Vital Signs Temperature 36.1 C L 08/25/24 00:34 Pulse Rate 64 08/25/24 00:34 Respiratory Rate 15 08/25/24 00:34 Blood Pressure 144/56 H 08/25/24 00:34 Pulse Oximetry 98 08/25/24 00:34 Oxygen Delivery Room Air 08/25/24 00:34 Temperature 36.6 C 08/25/24 05:37 Pulse Rate 95 08/25/24 05:37 Respiratory Rate 18 08/25/24 05:37 Blood Pressure 122/83 08/25/24 05:37 Pulse Oximetry 96 08/25/24 05:37 Oxygen Delivery Room Air 08/25/24 00:34 Medical Decision Making MDM Narrative Medical decision making narrative: differential diagnosis includes hematuria, urinalysis showed evidence of greater than 100 white blood cells in the urine CT scan of the abdomen pelvis showed Suspected cystitis. Correlate with urinalysis. Minimal bilateral hydroureteronephrosis. No obstructing stones seen. Small nonobstructing left renal stones are present. 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 Vital Signs Vital Signs: Vital Signs Temperature 36.1 C L 08/25/24 00:34 Pulse Rate 64 08/25/24 00:34 Respiratory Rate 15 08/25/24 00:34 Blood Pressure 144/56 H 08/25/24 00:34 Pulse Oximetry 98 08/25/24 00:34 Oxygen Delivery Room Air 08/25/24 00:34 Temperature 36.6 C 08/25/24 05:37 Pulse Rate 95 08/25/24 05:37 Respiratory Rate 18 08/25/24 05:37 Blood Pressure 122/83 08/25/24 05:37 Pulse Oximetry 96 08/25/24 05:37 Oxygen Delivery Room Air 08/25/24 00:34 Lab Data 08/25/24 04:35 08/25/24 04:35 Labs: Lab Results 08/25/24 Range/Units 04:35 WBC 5.3 (4.5-10.0) K/mm3 RBC 3.71 L (4.6-6.20) M/mm3 Hgb 10.9 L (14.0-18.0) g/dL Hct 34.3 L (42.0-52.0) % MCV 92.5 (80-100) fl MCH 29.4 (26-34) pg MCHC 31.8 L (32-36) g/dl RDW 18.4 H (11.5-14.5) % Plt Count 211 (150-375) k/mm3 MPV 8.6 (7.4-10.4) fl Immature Gran % (Auto) 0.2 (0-0.5) % Neut % (Auto) 50.7 (45.5-73.1) % Lymph % (Auto) 35.5 (18.3-44.2) % [place] % (Auto) 8.7 H (2.6-8.5) % Eos % (Auto) 4.3 (0-4.4) % Baso % (Auto) 0.6 (0.2-1.2) % Lymph # (Auto) 1.88 (0.9-3.2) K/mm3 [place] # (Auto) 0.5 (0.1-0.6) K/mm3 Eos # (Auto) 0.2 (0-0.3) K/mm3 Baso # (Auto) 0.0 (0.0-0.1) K/mm3 Abs Immat Gran (auto) 0.01 (0.00-0.031) K/mm3 Absolute Neuts (auto) 2.7 (1.3-6.7) K/mm3 Absolute Nucleated RBC 0.000 (0.0-0.012) K/mm3 Nucleated RBC % 0.0 (0.0-0.2) % Sodium 137 (137-145) mmol/L Potassium 4.4 (3.4-5.0) mmol/L Chloride 103 (98-107) mmol/L Carbon Dioxide 32 H (22-30) mmol/L Anion Gap 2 L (4-12) mmol/L BUN 27 H D (9-20) mg/dL Creatinine 1.00 (0.7-1.3) mg/dL Estim Creat Clear Calc 60 ml/min Estimated GFR > 60 (59 - ) Glucose 118 H (65-110) mg/dL Calcium 9.3 (8.4-10.2) mg/dL Total Bilirubin 0.4 (0.2-1.3) mg/dL AST 30 (17-59) U/L ALT 22 (6-50) U/L Alkaline Phosphatase 111 (38-126) U/L Total Protein 7.0 (6.3-8.2) g/dL Albumin 4.0 (3.5-5.1) g/dL Urine Color Light red H (Yellow) Urine Appearance Cloudy H (Clear) Urine pH 5.5 (5.0-9.0) Ur Specific [place] 1.010 (1.001-1.035) Urine Protein 3+ H (Negative) mg/dL Urine Glucose (UA) Negative (Negative) mg/dL Urine Ketones Negative (Negative) mg/dL Ur Blood (Man) 3+ H (Negative) Urine Nitrate Negative (Negative) Urine Bilirubin Negative (Negative) Urine Urobilinogen 0.2 (<2.0) mg/dL Add Ur Microanalysis Reviewed Leukocyte Esterase Rfl 2+ H (Negative) NOEL/UL Urine RBC >100 H (0-2) /hpf Urine WBC >100 H (0-3) /hpf Ur Squamous Epith Cells None seen (Few) /hpf Urine Bacteria 1+ /hpf Urine Casts 0-2 Discharge Plan Discharge Clinical Impression: Hematuria, Acute UTI Patient Disposition: Home, Self-Care Condition: Stable Instructions: Antibiotic Form, Urinary Tract Infection in Men (ED) Additional Instructions: please follow-up with your urologist Prescriptions: New cephalexin 500 mg capsule 500 mg PO Q12H 7 Days Qty: 14 0RF No Action atorvastatin 80 mg tablet 40 mg PO DAILY Eliquis 5 mg Tablet 5 mg PO BID Hold Instructions: Resume on 05/22/24. tamsulosin 0.4 mg capsule 0.4 mg PO DAILY omeprazole 20 mg Capsule,Delayed Release(Dr/Ec) 20 mg PO BID mirabegron [Myrbetriq] 50 mg tablet extended release 24 hr 50 mg PO DAILY aspirin [Adult Low Dose Aspirin] 81 mg Tablet,Delayed Release (Dr/Ec) 81 mg PO DAILY Hold Instructions: Resume on 05/22/24. Trulicity 1.5 mg/0.5 mL pen injector 1.5 mg SUBCUT WEEKLY Patient Comments: TAKES ON saturday Rx Instructions: saturday gabapentin 300 mg capsule 300 mg PO TID sulfamethoxazole-trimethoprim [Bactrim DS] 800-160 mg tablet 1 tablet PO Q12H 7 Days Qty: 14 0RF lisinopril 5 mg Tablet 2.5 mg PO DAILY Hold Instructions: Resume on 07/22/24. Please hold until you follow up with your PCP cefdinir 300 mg Capsule 300 mg PO BID 3 Days Qty: 6 0RF ferrous sulfate 325 mg (65 mg iron) tablet 325 mg PO DAILY Qty: 90 0RF Follow-up/Referrals: Rosa,MD Sahara [Primary Care Provider] - Time of Disposition: 06:59
[2024-08-25 07:11] VITALS: BP 142/88; PULSE 67; RESP 15; O2SAT 100
== END 2024-08-25 07:12 | disposition home or self-care (01) ==
PROVIDERS: Emergency Provider Emergency Medicine; PCP Internal Medicine
DX: N39.0 Urinary tract infection, site not specified (principal); R31.9 Hematuria, unspecified; I25.10 Atherosclerotic heart disease of native coronary artery without angina pectoris; I69.954 Hemiplegia and hemiparesis following unspecified cerebrovascular disease affecting left non-dominant side; E11.40 Type 2 diabetes mellitus with diabetic neuropathy, unspecified; I25.2 Old myocardial infarction; I10 Essential (primary) hypertension
CPT/HCPCS: 36415; 74176; 80053; 81001; 85025; 87086; 96360; 99284; J7030

== ENCOUNTER 2024-10-03 12:48 | Emergency (ER) | payer MEDICARE, OTHER, SELFPAY ==
[2024-10-03 13:41] VITALS: BP 151/73; PULSE 84; RESP 14; TEMP 36.5; O2SAT 98
--- NOTE | 2024-10-03 16:43 | PC.NURSE ---
per MD Blue, RN to exchange Omer Catheter. Omer exchanged using 16fr catheter, urine return noted. Balloon inflated with 10mL saline and no resistance met. Patient reports feeling better after exchange. MD Blue notified.
--- NOTE | 2024-10-03 16:45 | ED_ITS ---
HPI - Male Genitourinary General Chief complaint: Urogenital-Male Stated complaint: WANTS BLACK CHECKED AFTER IT WAS PULLED Time Seen by Provider: 10/03/24 16:07 History of Present Illness HPI Narrative: Patient is a 79-year-old male who presents ER with Black catheter complication. He was sitting on the toilet and stood up when he caught his Black catheter pulling it almost fully out of his penis. Is now stuck in what he thinks is the penile shaft. There is no obvious bleeding. He has lot of discomfort. No additional concerns. Related Data Home Medications ?Medication ?Instructions ?Recorded ?Confirmed ?Last Taken ?Type apixaban 5 mg tablet (Eliquis) 5 mg PO BID 01/13/24 07/04/24 05/19/24 History aspirin 81 mg tablet,delayed 81 mg PO DAILY 01/13/24 07/04/24 05/19/24 History release (Adult Low Dose Aspirin) atorvastatin 80 mg tablet 40 mg PO DAILY 01/13/24 07/04/24 03/29/24 09:00 History dulaglutide 1.5 mg/0.5 mL 1.5 mg subcut WEEKLY 01/13/24 07/04/24 Unknown History subcutaneous pen injector (Trulicity) mirabegron 50 mg tablet,extended 50 mg PO DAILY 01/13/24 07/04/24 03/29/24 09:00 History release 24 hr (Myrbetriq) omeprazole 20 mg capsule,delayed 20 mg PO BID 01/13/24 07/04/24 03/29/24 17:00 History release tamsulosin 0.4 mg capsule 0.4 mg PO DAILY 01/13/24 07/04/24 03/29/24 09:00 History gabapentin 300 mg capsule 300 mg PO TID 01/29/24 07/05/24 05/21/24 05:00 History lisinopril 5 mg tablet 2.5 mg PO DAILY 04/08/24 07/04/24 Unknown History Allergies Allergy/AdvReac Type Severity Reaction Status Date / Time iodine Allergy Rash Verified 07/25/24 12:28 Penicillins Allergy Swelling Verified 07/25/24 12:28 amitriptyline AdvReac BECOMES Verified 07/25/24 12:28 VIOLENT/COMBATIVE codeine AdvReac avoids Verified 07/25/24 12:28 -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 AdvReac Nausea and Verified 07/25/24 12:28 Vomiting Review of Systems Constitutional: Constitutional: Reports no additional constitutional complaints Gastrointestinal: Gastrointestinal: Reports no additional gastrointestinal complaints Genitourinary: Genitourinary: Reports no additional male genitourinary complaints [facility] Past Medical History Medical History CAD (coronary artery disease) CVA (cerebral vascular accident) 1982, 1990 mild left weakness Diabetic neuropathy History of diabetes mellitus History of heart attack History of hypertension TIA (transient ischemic attack) x8 VTE (venous thromboembolism) Surgical History Surgical History History of transurethral resection of bladder tumor (TURBT) Family History Family History Father Diabetes mellitus Sibling Diabetes mellitus Mother Congestive heart disease Social History Social History Smoking packs per day: 1 Smoking cigarettes per day: 20.0 Years smoked: 40 Smoking pack-years: 40.00 Smoking status: Former smoker Tobacco type: cigarettes Smoking end date: 03/23/95 Alcohol intake: former Alcohol use details: QUIT HEAVY DRINKER PRIOR Substance use: former Substance use type: does not use 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 HEAD: Normocephalic, atraumatic. : Uncircumcised penis with Black catheter coming out. No blood in urine. Black does not advance or pull back and causes discomfort. When deflated it falls out. EXTREMITIES: Normal range of motion. No edema. SKIN: Warm, dry, no rash. NEURO: Alert and oriented x3. PSYCH: Normal mood and affect. Course Course Emergency Course: Black balloon deflated 3 mL immediately fell out of the penis and residual urine felt as well. Black catheter placed inflated. No bleeding. Appropriate for discharge. Vital Signs Vital signs: Vital Signs Temperature 97.7 F 10/03/24 13:41 Pulse Rate 84 10/03/24 13:41 Respiratory Rate 14 10/03/24 13:41 Blood Pressure 151/73 H 10/03/24 13:41 Pulse Oximetry 98 10/03/24 13:41 Oxygen Delivery Room Air 10/03/24 13:41 Temperature 97.7 F 10/03/24 13:41 Pulse Rate 84 10/03/24 13:41 Respiratory Rate 14 10/03/24 13:41 Blood Pressure 151/73 H 10/03/24 13:41 Pulse Oximetry 98 10/03/24 13:41 Oxygen Delivery Room Air 10/03/24 13:41 Discharge Plan Discharge Clinical Impression: Complication of Black catheter Patient Disposition: Home, Self-Care Condition: Stable Instructions: Black Catheter Placement and Care (ED) Additional Instructions: Return ER if you have fever 100.4? F, your Black is not draining, or you have additional concerns. Patient Language: Bur[place]ian Prescriptions: No Action atorvastatin 80 mg tablet 40 mg PO DAILY Eliquis 5 mg Tablet 5 mg PO BID tamsulosin 0.4 mg capsule 0.4 mg PO DAILY omeprazole 20 mg Capsule,Delayed Release(Dr/Ec) 20 mg PO BID mirabegron [Myrbetriq] 50 mg tablet extended release 24 hr 50 mg PO DAILY aspirin [Adult Low Dose Aspirin] 81 mg Tablet,Delayed Release (Dr/Ec) 81 mg PO DAILY Trulicity 1.5 mg/0.5 mL pen injector 1.5 mg SUBCUT WEEKLY Patient Comments: TAKES ON saturday Rx Instructions: saturday gabapentin 300 mg capsule 300 mg PO TID sulfamethoxazole-trimethoprim [Bactrim DS] 800-160 mg tablet 1 tablet PO Q12H 7 Days Qty: 14 0RF cephalexin 500 mg capsule 500 mg PO Q12H 7 Days Qty: 14 0RF lisinopril 5 mg Tablet 2.5 mg PO DAILY cefdinir 300 mg Capsule 300 mg PO BID 3 Days Qty: 6 0RF ferrous sulfate 325 mg (65 mg iron) tablet 325 mg PO DAILY Qty: 90 0RF Follow-up/Referrals: Rosa,MD [facility] [Primary Care Provider] - 1 Week
== END 2024-10-03 17:16 | disposition home or self-care (01) ==
PROVIDERS: Emergency Provider Emergency Medicine; PCP Internal Medicine
DX: T83.028A Displacement of other urinary catheter, initial encounter (principal); Z79.82 Long term (current) use of aspirin; Z79.01 Long term (current) use of anticoagulants; I25.10 Atherosclerotic heart disease of native coronary artery without angina pectoris; I69.354 Hemiplegia and hemiparesis following cerebral infarction affecting left non-dominant side; I10 Essential (primary) hypertension; Z87.891 Personal history of nicotine dependence
CPT/HCPCS: 51702; 99283

== ENCOUNTER 2024-11-03 10:23 | Outpatient (CLI) | payer MEDICARE, MEDICAID, SELFPAY ==
--- NOTE | ~2024-11-03 | US_ITS ---
Limited Abdominal Sonogram: Real-time sonographic imaging of the right upper quadrant was performed. Clinical History: Fatty liver Findings: The liver appears normal with no evidence of mass lesion or bile duct dilatation. Main por akira vein demonstrates normal direction of flow. The gallbladder is absent, compatible prior cholecyst ectomy. The common bile duct measures 4 mm. The visualized pancreas, aorta, and IVC are unremarkable . Impression: Status post cholecystectomy, otherwise unremarkable exam. Reviewed, dictated and finalized at location [facility] Impression: Status post cholecystectomy, otherwise unremarkable exam.
== END 2024-11-03 10:24 | disposition home or self-care (01) ==
LOC: MICIMG 10:25
PROVIDERS: PCP Internal Medicine; Visit Provider Internal Medicine
DX: K76.0 Fatty (change of) liver, not elsewhere classified (principal); R10.11 Right upper quadrant pain; Z90.49 Acquired absence of other specified parts of digestive tract
CPT/HCPCS: 76705

== ENCOUNTER 2025-01-15 04:21 | Emergency (ER) | payer MEDICARE, MEDICAID, SELFPAY ==
--- OUTSIDE RECORDS SUMMARY | 2025-01-15 04:23 | XMS_ITS | Continuity of Care Document ---
Author Organization [facility] Main Address [address] [place] [address] Insurance Providers Payer Plan Claims Address Claims Phone Policy Number Group Number Relation Employer Guarantor Name Guarantor Guarantor Address Guarantor Phone ANALIA Ha LALITRobert [employer] [address] [address], [place] [address] tel:[phone] Self Cosme Parsons 1945 [address] [place] [address] RX [employer] [place] tel:[phone] Self Cosme Parsons 1945 [address] [place] [address] [facility] MEDIC ARE ADV [address] [address] [address] tel:[phone] Self Cosme Parsons 1945 [address] [place] [address] Problems Unknown Problems Results No Results Allergies, adverse reactions, alerts No known allergies and adverse reactions Medications No administered medications reported Vital Signs Date Vital Result Comment 09/10/2024 Inhaled Oxygen Concentration 21.0 % N Faces Pain Scale 0.0 N Temperature 98 [degF] N Oxygen Saturation 97 % N Respiratory Rate 16 /min N Heart Rate 64 /min N Blood Pressure Systolic 130 mm[Hg] N Blood Pressure Diastolic 60 mm[Hg] N Body Height 73 [in_i] N Body Weight 221 [lb_av] N Body Mass Index 29.2 kg/m2 N Social History No smoking Hx information available
--- OUTSIDE RECORDS SUMMARY | 2025-01-15 04:23 | XMS_ITS | Continuity of Care Document ---
Author Name [facility] Organization [facility] Care Team Providers Care Air Bag Curer Name Role Phone [facility] Unavailable Unavailable Problems Combined list of problems from Department of Defense and Veterans Affairs facilities. It does not include entries that were removed or entered in error. Problem Status Onset Date Problem Type Date of Resolution Comments Source Acute Deep Vein Thrombosis of Lower Limb ([facility] 239502226112) Active 022 Condition Jan 18, 2022 Entered By: STONE DEL CASTILLO Comment: ER visit [facility] with Dr Max Sevilla [facility] Lumbago Active 996 Condition [facility] Adjust[facility] disorder with mixed emotional features Active Condition [facility] Allergic rhinitis Active Condition [facility] Allergic Rhinitis ([facility] [id number]) Active Condition [facility] Bacterial urinary infection Active Condition [facility] Benign essential hypertension Active Condition [facility] Benign Prostatic Hypertrophy Without Outflow Obstruction ([facility] 407186305) Active Condition [facility] CAD - Coronary artery disease Active Condition [facility] CAD - Coronary Artery Disease ([facility] 44441043) Active Condition Jul 26, 2020 Entered By: TI JOSHUA Comment: s/p PR & PCI/stent [facility] CALCANEAL SPUR Active Condition [facility] Cardiomyopathy Active Condition [facility] Cerebral artery occlusion Active Condition [facility] Cerebral infarction Active Condition [facility] Cervical Spinal Stenosis ([facility] [id number]) Active Condition [facility] Chest pain Active Condition [facility] Chronic venous insufficiency Active Condition [facility] Congestive heart failure Active Condition [facility] Coronary arteriosclerosis Active Condition [facility] Coronary arteriosclerosis Active Condition [facility] DANDRUFF Active Condition [facility] Dementia Active Condition [facility] Depression Active Condition [facility] Depressive disorder Active Condition [facility] Diabetes Mellitus Type 2 ([facility] [id number]) Active Condition [facility] Diabetes Mellitus Type II or unspecified with Neurological Manifestations Active Condition May 30, 2013 Entered By: DAMI MAGANA NN Comment: see list of NON VA meds (glipizide / metformin) [facility] Diabetic Neuropathies (ICD-9-CM 250.60/357.2) Active Condition Jayson DELANEY [facility] DISC DISPLACEMENT NOS Active Condition [facility] DJD Active Condition [facility] Dry Eye Syndrome [facility] Dyslipidemia (ICD-9-CM 272.4) Active Condition [facility] Edema Active Condition [facility] Exposure to potentially hazardous substance Active Condition [facility] FACIAL NERVE DIS NEC Active Condition [facility] Finding related to compliance with treatment Active Condition [facility] Gastroenteritis Active Condition [facility] GERD - Gastro-Esophageal Reflux Disease ([facility] [id number]) Active Condition [facility] Gout Active Condition [facility] H/O: Stroke ([facility] [id number]) Active Condition [facility] HEADACHE Active Condition [facility] Health Maintenance Active Condition N 2008 Entered By: DAMI MAGANA NN Comment: on RX from LMD/doesn't know names/will bring list nxt visit [facility] HERED FRUCTOSE INTOLERAN Active Condition [facility] History of cholecystectomy Active Condition Apr 26, 2020 Entered By: STONE DEL CASTILLO Comment: patient reports done in early 2019 [facility] [place] Plaque Active Condition [facility] Hom[facility] single person Active Condition [facility] Hyperlipidemia Active Condition [facility] Hypertensive disorder Active Condition [facility] IDIO PERIPH NEURPTHY NEC Active Condition [facility] Insect Bite NEC (ICD-9-CM 919.4) Active Condition [facility] Kidney Stone ([facility] 37478497) Active Condition [facility] Water Quality Analyst (current) use of Anticoagulants Active Condition Aug 03, 2009 Entered By: DAMI MAGANA NN Comment: PT TAKES COUMADIN FROM IN COMMUNITY [facility] Low Back Pain Active Condition [facility] Low back pain (SNOMED CT 229063638) Active Condition [facility] Marital/family problems (ICD-9-CM V61.0) Active Condition [facility] Memory loss (ICD-9-CM 780.93) Active Condition [facility] Mood Disorder due to a General Medical Condition (ICD-9-CM 293.83) Active Condition [facility] Normal grief reaction Active Condition [facility] Numbness and tingling sensation of skin Active Condition [facility] Obesity Active Condition [facility] Obesity * (ICD-9-CM 278.00) Active Condition [facility] Osteitis deformans (SNOMED CT 8359273) Active Condition [facility] Osteoarthritis (SCT 449599691) Active Condition Jul 26, 2020 Entered By: TI JOSHUA Comment: s/p B [facility] Osteoarthritis * (ICD-9-CM 715.90) Active Condition [facility] Other General Symptoms (ICD-9-CM 780.9) Active Condition Nov 18, 2001 Entered By: KAYCEE ISRAEL Comment: Episodic loss of consciousness [facility] OTHER SEBORRHEIC DERMATITIS Active Condition [facility] Overactive bladder Active Condition [facility] PAGET'S DISE[facility] Active Condition [facility] PROLONG POSTTRAUM STRESS Active Condition [facility] PVD * (ICD-9-CM 443.9) Active Condition [facility] Relationship distress with spouse or intimate partner Active Condition [facility] Restless legs Active Condition [facility] SKIN ANOMALY NEC Active Condition [facility] Sleep Apnea (SCT 15406418) Active Condition Jul 26, 2020 Entered By: TI JOSHUA Comment: intolerant of CPAP [facility] Spinal Stenosis of Lumbar Region (SCT 67567121) Active Condition [facility] Sprain of unspecified site of knee and leg (ICD-9-CM 844.9) Active Condition [facility] SURGERY FOLLOW-UP Active Condition [facility] Tick bite Active Condition [facility] Type II diabetes mellitus uncontrolled Active Condition [facility] Unresolved Active Condition [facility] URIN TRACT INFECTION NOS Active Condition [facility] Vascular dementia (SNOMED CT 788839878) Active Condition [facility] Vision, abnormal Active Condition [facility] Vitamin D deficiency Active Condition [facility] Xeroderma Active Condition [facility] Acute conjunctivitis (ICD-9-CM 372.00) Inactive Condition 08/03/2009 [facility] Acute sinusitis (ICD-9-CM 461.9) Inactive Condition 08/03/2009 [facility] DM Type II w/o Eye Disease Inactive Condition 08/03/2009 [facility] Gastroenteritis * (ICD-9-CM 558.9) Inactive Condition 08/03/2009 [facility] Hip: arthralgia (pain on rotation, pain in groin) * (ICD-9-CM 719.45) Inactive Condition 08/03/2009 [facility] Influenza * (ICD-9-CM 487.1) Inactive Condition 08/03/2009 [facility] Diagnosis: ICD-10-CM Z51.81 Encounter for therapeutic drug level monitoring Active Diagnosis [facility] Diagnosis: ICD-10-CM I82.409 Acute embolism and thombos unsp deep vn unsp lower extremity Active Diagnosis [facility] Diagnosis: ICD-10-CM Z13.5 Encounter for screening for eye and ear disorders Active Diagnosis [facility] Diagnosis: ICD-10-CM E11.9 Type 2 diabetes mellitus without complications Active Diagnosis [facility] Diagnosis: ICD-10-CM Z79.899 Other remote computer terminal operator (current) drug therapy Active Diagnosis [facility] Diagnosis: ICD-10-CM I25.10 Athscl heart disease of [place] coronary artery w/o ang pctrs Active Diagnosis [facility] Diagnosis: ICD-10-CM M25.562 Pain in left knee Active Diagnosis [facility] Diagnosis: ICD-10-CM M79.605 Pain in left leg Active Diagnosis [facility] Diagnosis: ICD-10-CM F33.40 Major depressive disorder, recurrent, in remission, unsp Active Diagnosis [facility] Diagnosis: ICD-10-CM Z79.01 rn long term care (current) use of anticoagulants Active Diagnosis [facility] Medications Combined list of outpatient medications from Department of Defense and Veterans Affairs facilities.Medications provided include 1) outpatient medications from the last 15 months, and 2) patient-reported medications. Medication Details Route Status Patient Instructions Prescription Expires Prescription Number Last Dispense Date Ordering Provider Order Date Order Qty Source APIXABAN 5MG TAB TAKE ONE-HALF TABLET BY MOUTH TWICE A DAY FOR ANTICOAG ULATION ORAL ACTIVE 12/31/2025 [id number] AMILCAR SHERWOOD S 2024 90 [facility] N APIXABAN 5MG TAB TAKE ONE-HALF TABLET BY MOUTH TWICE A DAY FOR ANTICOAG ULATION ORAL DISCONT INUED 01/22/2025 [id number] 5 BARBARA HUNT 2024 60 [facility] APIXABAN 5MG TAB TAKE ONE-HALF TABLET BY MOUTH TWICE A DAY FOR ANTICOAG ULATION ORAL DISCONT INUED (EDIT) 12/23/2024 [id number] 4 BARBARA HUNT 2023 90 [facility] ATORVASTATI N CA 80MG TAB TAKE ONE-HALF TABLET BY MOUTH EVERY EVENING TO LOWER CHOLESTE ROL ORAL ACTIVE 12/16/2025 [id number] 5 LUIS MANUEL,NI DHI 2024 45 [facility] DULAGLUTIDE 1.5MG/0.5ML INJ,SOLN,PE N INJECT 1.5MG/0. 5ML UNDER THE SKIN EVERY WEEK SUBCUT ANEOUS ACTIVE MARY ELLEN DEL CASTILLO 2021 [place] [facility] DULAGLUTIDE 1.5MG/0.5ML INJ,SOLN,PE N INJECT 1.5MG (0.5ML) SUBCUTAN EOUSLY EVERY WEEK SUBCUT ANEOUS ACTIVE TARA JOSHUA VIDHI 2019 [facility] EMPAGLIFLOZ IN 5MG/METFORM IN 1000MG TAB,ORAL TAKE ONE TABLET BY MOUTH TWICE A DAY ORAL ACTIVE MARY ELLEN DEL CASTILLO 2021 [facility] EMPAGLIFLOZ IN 5MG/METFORM IN 1000MG TAB,ORAL TAKE ONE TABLET BY MOUTH TWO TIMES A DAY ORAL ACTIVE TARA JSOHUA VIDHI 2019 [facility] GABAPENTIN 300MG CAP TAKE ONE CAPSULE BY MOUTH TWICE A DAY FOR PAIN ORAL ACTIVE 12/16/2025 [id number] 5 LUIS MANUEL,NI I 2024 180 [facility] GABAPENTIN 300MG CAP TAKE ONE CAPSULE BY MOUTH TWICE A DAY FOR PAIN ORAL 12/06/2024 [id number] 4 José Miguel TOURE 2023 180 [facility] LISINOPRIL 5MG TAB TAKE ONE-HALF TABLET BY MOUTH ONCE A DAY FOR HEART OR BLOOD PRESSURE ORAL ACTIVE 12/16/2025 [id number] 5 LUIS MANUEL,NI I 2024 45 [facility] OMEPRAZOLE 20MG CAP,EC TAKE ONE CAPSULE BY MOUTH TWICE A DAY TO LOWER STOMACH ACID. TAKE 30 MINUTES PRIOR TO FOOD. ORAL ACTIVE 12/16/2025 [id number] 5 LUIS MANUEL,NI I 2024 180 [facility] OMEPRAZOLE 20MG CAP,EC TAKE ONE CAPSULE BY MOUTH TWICE A DAY TO LOWER STOMACH ACID. TAKE 30 MINUTES PRIOR TO FOOD. ORAL DISCONT INUED 05/12/2025 [id number] 5 José Miguel TOURE 2023 180 [facility] OMEPRAZOLE 20MG CAP,EC TAKE ONE CAPSULE BY MOUTH TWICE A DAY TO LOWER STOMACH ACID. TAKE 30 MINUTES PRIOR TO FOOD. ORAL DISCONT INUED 05/07/2024 [id number] 4 MARY ELLEN DEL CASTILLO 2022 180 [facility] SERTRALINE HCL 50MG TAB TAKE ONE-HALF TABLET BY MOUTH EVERY MORNING ORAL ACTIVE 12/16/2025 [id number] 5 CHRISTOPHER ISSA I 2024 45 [facility] SERTRALINE HCL 50MG TAB TAKE ONE-HALF TABLET BY MOUTH EVERY MORNING FOR DEPRESSI ON ORAL DISCONT INUED 06/24/2025 [id number] 5 ROGER ESCALERA JIMI 2023 45 [facility] SERTRALINE HCL 50MG TAB TAKE ONE-HALF TABLET BY MOUTH EVERY MORNING FOR DEPRESSI ON ORAL DISCONT INUED 12/17/2024 [id number] 4 LALIROGER JIMI 2023 45 [facility] [place] TAMSULOSIN HCL 0.4MG CAP TAKE ONE CAPSULE BY MOUTH EVERY EVENING APPROXIM ATELY 30 MINUTES AFTER THE SAME MEAL EACH DAY (FOR PROSTATE ) ORAL ACTIVE 12/16/2025 [id number] 5 CHRISTOPHER ISSA I 2024 90 [facility] Allergies, Adverse Reactions, Alerts Combined list of allergies from Department of Defense and Veterans Affairs facilities. It does not include entries that were removed or entered in error. Substance Category Reaction Severity Reaction type Status Date Reported Comments Source AMITRIPTYLIN E Propensity to adverse reactions to drug (finding) Physical aggression active 2 [facility] ASPIRIN Propensity to adverse reactions to drug (finding) active 5 [facility] METFORMIN Propensity to adverse reactions to drug (finding) Diarrhea active 3 [facility] MORPHINE Propensity to adverse reactions to drug (finding) Physical aggression active 2 [facility] OXCARBAZEPIN E Propensity to adverse reactions to drug (finding) Psychotic disorder active 2 [facility] PENICILLIN Propensity to adverse reactions to drug (finding) active 5 [facility] PENICILLIN Propensity to adverse reactions to drug (finding) HIVES active 3 [facility] PENICILLIN Propensity to adverse reactions to drug (finding) Urticaria active 0 [place] MIKAEL BAILEY 15 TRAZODONE Propensity to adverse reactions to drug (finding) Bleeding active [address] [facility] Immunizations Combined list of available immunizations from the Department of Defense and Veterans Affairs facilities. Immunization Series Date Given Administered By Site Reaction Lot Number CVX Code Drug Product Management Consultant Status Comments Source INFLUENZA, UNSPECIFIED FORMULATION 2020 88 complet ed [facility], VISN 15 INFLUENZA, SEASONAL, INJECTABLE, PRESERVATIVE FREE 2016 140 complet ed [facility] PNEUMOCOCCAL CONJUGATE PCV 13 2016 133 complet ed [facility] INFLUENZA, UNSPECIFIED FORMULATION 2014 88 complet ed NOVARTIS/ [id number]/ [facility] PNEUMOCOCCAL CONJUGATE PCV 13 2014 133 complet ed [facility] INFLUENZA, UNSPECIFIED FORMULATION 2013 88 complet ed as per Bruno [facility] PNEUMOVAX (HISTORICAL) 2013 33 complet ed [facility] INFLUENZA, UNSPECIFIED FORMULATION 2013 88 complet ed CSL BIOTHERAP IES/[id number] [facility] INFLUENZA, UNSPECIFIED FORMULATION 2012 88 complet ed Glaxo-Kli ne/[id number]/ 4 [facility] INFLUENZA (HISTORICAL) 2011 88 complet ed Novartis/ Lot# [id number] [facility] TDAP 2011 115 complet ed Sanofi Pasteur/L ot# [id number] [facility] INFLUENZA (HISTORICAL) 2011 88 complet ed [facility] NOVEL INFLUENZA-H1N 1-09, ALL FORMULATIONS 2009 128 complet ed Novartis/ Lot# [id number] [facility] INFLUENZA (HISTORICAL) 2008 NONE 88 complet ed Completed Series, Left Deltoid [facility] [place] [place] [facility] PNEUMOCOCCAL POLYSACCHARID E PPV23 2008 33 complet ed Right Deltoid [facility] INFLUENZA (HISTORICAL) 2007 88 complet ed [facility] INFLUENZA (HISTORICAL) 2006 88 complet ed Left Deltoid [facility] INFLUENZA (HISTORICAL) 2005 88 complet ed Left Deltoid [facility] INFLUENZA (HISTORICAL) 2004 88 complet ed Left Deltoid [facility] INFLUENZA (HISTORICAL) 2003 88 complet ed Left Deltoid [facility] PNEUMOCOCCAL POLYSACCHARID E PPV23 2003 33 complet ed Left Deltoid [facility] INFLUENZA (HISTORICAL) 2002 88 complet ed Left Deltoid [facility] INFLUENZA (HISTORICAL) 2000 88 complet ed [facility] TD(ADULT) UNSPECIFIED FORMULATION 2000 139 complet ed [facility] TETANUS TOXOID, UNSPECIFIED FORMULATION 1997 KAYCEE LINDSEY X 112 complet ed [facility] N Results Combined list of recent chemistry, hematology and other laboratory results from Department of Defense and Veterans Affairs, ranging from 15 months to all on record, depending upon the facility. Order Name Results Value Reference Range Date Interpretation Specimen Comments Source HGA1C HEMOGLOBIN A1C/HEMOGLO BIN.TOTAL IN BLOOD 7.3 4.0 - 6.0 12/16 H Specimen Type: BLOOD No comment entered. Ordering Provider: LIZA ISSA Report Released Date/Time: Dec 11, 2024 04:22 PM Reporting Lab: [facility] [address] [facility] [phone] Performing Lab: [facility] [address] [facility] [address] [facility] MICRAL/CR EAT PROFILE (STL) ALBUMIN [MASS/VOLUM E] IN URINE 226.8 mg/L 12/16 Specimen Type: URINE No comment entered. Ordering Provider: LIZA ISSA Report Released Date/Time: Dec 11, 2024 04:22 PM Reporting Lab: [facility] [address] [facility] [address] Performing Lab: [facility] [address] [facility] [address] [facility] MICRAL/CR EAT PROFILE (STL) ALBUMIN/CRE ATININE [MASS RATIO] IN URINE 422 mg/g 0 - 29 12/16 H Specimen Type: URINE No comment entered. Ordering Provider: LIZA ISSA Report Released Date/Time: Dec 11, 2024 04:22 PM Reporting Lab: [facility] [address] [facility] [phone] Performing Lab: [facility] [address] [facility] [address] [facility] MICRAL/CR EAT PROFILE (STL) CREATININE [MASS/VOLUM E] IN URINE 53.7 mg/dL 63 - 166 12/16 L Specimen Type: URINE No comment entered. Ordering Provider: LIZA ISSA Report Released Date/Time: Dec 11, 2024 04:22 PM Reporting Lab: [facility] [address] [facility] [address] Performing Lab: [facility] [address] [place] [phone] [facility] LIPID PANEL (STL) CHOLESTEROL [MASS/VOLUM E] IN SERUM OR PLASMA 90 mg/dL 0 - 200 12/16 Specimen Type: PLASMA Comment: No hemolysis noted. Ordering Provider: LIZA ISSA Report Released Date/Time: Dec 11, 2024 04:22 PM Reporting Lab: [facility] [address] [facility] [address] Performing Lab: [facility] [address] [facility] [phone] [facility] LIPID PANEL (STL) TRIGLYCERID E [MASS/VOLUM E] IN SERUM OR PLASMA 63 mg/dL 0 - 150 12/16 Specimen Type: PLASMA Comment: No hemolysis noted. Ordering Provider: LIZA ISSA Report Released Date/Time: Dec 11, 2024 04:22 PM Reporting Lab: [facility] [address] [phone] Performing Lab: [facility] [address] [facility] [address] [facility] LIPID PANEL (STL) CHOLESTEROL IN LDL [MASS/VOLUM E] IN SERUM OR PLASMA BY CALCULATION 32 mg/dL 12/16 Specimen Type: PLASMA Comment: No hemolysis noted. Ordering Provider: LIZA ISSA Report Released Date/Time: Dec 11, 2024 04:22 PM Reporting Lab: [facility] [address] [facility] [phone] Performing Lab: [facility] [address] [facility] [address] [facility] LIPID PANEL (STL) CHOLESTEROL IN HDL [MASS/VOLUM E] IN SERUM OR PLASMA 45 mg/dL 40 12/16 Specimen Type: PLASMA Comment: No hemolysis noted. Ordering Provider: LIZA ISSA Report Released Date/Time: Dec 11, 2024 04:22 PM Reporting Lab: [facility] [address] [facility] [address] Performing Lab: [facility] [address] [facility] [address] [facility] COMPREHEN SIVE METABOLIC PANEL CREATININE [MASS/VOLUM E] IN SERUM OR PLASMA 0.90 mg/dL 0.7 - 1.3 12/16 Specimen Type: PLASMA Comment: No hemolysis noted. Ordering Provider: LIZA ISSA Report Released Date/Time: Dec 11, 2024 04:22 PM Reporting Lab: [facility] [address] [facility] [address] Performing Lab: [facility] [address] [address] [facility] COMPREHEN SIVE METABOLIC PANEL UREA NITROGEN [MASS/VOLUM E] IN SERUM OR PLASMA 19.8 mg/dL 9.0 - 25.0 12/16 Specimen Type: PLASMA Comment: No hemolysis noted. Ordering Provider: LIZA ISSA Report Released Date/Time: Dec 11, 2024 04:22 PM Reporting Lab: [facility] [address] [facility] [address] Performing Lab: [facility] [address] [facility] [address] [facility] COM[facility]IVE METABOLIC PANEL GLUCOSE [MASS/VOLUM E] IN SERUM OR PLASMA 167 mg/dL 72 - 99 12/16 H Specimen Type: PLASMA Comment: No hemolysis noted. Ordering Provider: LIZA ISSA Report Released Date/Time: Dec 11, 2024 04:22 PM Reporting Lab: [facility] [address] [facility] [address] Performing Lab: [facility] [address] [facility] [address] [facility] METABOLIC PANEL SODIUM [MOLES/VOLU ME] IN SERUM OR PLASMA 139 meq/L 136 - 145 12/16 Specimen Type: PLASMA Comment: No hemolysis noted. Ordering Provider: LIZA ISSA Report Released Date/Time: Dec 11, 2024 04:22 PM Reporting Lab: [facility] [address] [facility] [phone] Performing Lab: [facility] [address] [facility] [address] [facility] METABOLIC PANEL POTASSIUM [MOLES/VOLU ME] IN SERUM OR PLASMA 4.0 meq/L 3.5 - 5 12/16 Specimen Type: PLASMA Comment: No hemolysis noted. Ordering Provider: LIZA ISSA Report Released Date/Time: Dec 11, 2024 04:22 PM Reporting Lab: [facility] [address] [address] Performing Lab: [facility] [address] [facility] [phone] [facility] METABOLIC PANEL CHLORIDE [MOLES/VOLU ME] IN SERUM OR PLASMA 102 meq/L 98 - 107 12/16 Specimen Type: PLASMA Comment: No hemolysis noted. Ordering Provider: LIZA ISSA Report Released Date/Time: Dec 11, 2024 04:22 PM Reporting Lab: [facility] [address] [facility] [phone] Performing Lab: [facility] [address] [address] [facility] COMPREHEN SIVE METABOLIC PANEL CARBON DIOXIDE, TOTAL [MOLES/VOLU ME] IN SERUM OR PLASMA 26 meq/L 22 - 31 12/16 Specimen Type: PLASMA Comment: No hemolysis noted. Ordering Provider: LUIS MANUEL,NID [place] Report Released Date/Time: Dec 11, 2024 04:22 PM Reporting Lab: [facility] [address] [facility] [address] Performing Lab: [facility] [address] [address] [facility] COMPREHEN SIVE METABOLIC PANEL CALCIUM [MASS/VOLUM E] IN SERUM OR PLASMA 10.0 mg/dL 8.4 - 10.4 12/16 Specimen Type: PLASMA Comment: No hemolysis noted. Ordering Provider: LIZA ISSA [place] Report Released Date/Time: Dec 11, 2024 04:22 PM Reporting Lab: [facility] [address] [facility] [address] Performing Lab: [facility] [address] [address] [facility] COMPREHEN SIVE METABOLIC PANEL PROTEIN [MASS/VOLUM E] IN SERUM OR PLASMA 7.9 g/dL 6 - 8.6 12/16 Specimen Type: PLASMA Comment: No hemolysis noted. Ordering Provider: LIZA ISSA Report Released Date/Time: Dec 11, 2024 04:22 PM Reporting Lab: [facility] [address] [address] Performing Lab: [facility] [address] [facility] [address] [facility] COMPREHEN SIVE METABOLIC PANEL ALBUMIN [MASS/VOLUM E] IN SERUM OR PLASMA 4.2 g/dL 3.4 - 5 12/16 Specimen Type: PLASMA Comment: No hemolysis noted. Ordering Provider: LIZA ISSA Report Released Date/Time: Dec 11, 2024 04:22 PM Reporting Lab: [facility] [address] [facility] [address] Performing Lab: [facility] [address] [address] [facility] COMPREHEN SIVE METABOLIC PANEL BILIRUBIN.T OTAL [MASS/VOLUM E] IN SERUM OR PLASMA 0.5 mg/dL 0.2 - 1.2 12/16 Specimen Type: PLASMA Comment: No hemolysis noted. Ordering Provider: LIZA ISSA Report Released Date/Time: Dec 11, 2024 04:22 PM Reporting Lab: [facility] [address] [address] Performing Lab: [facility] [address] [facility] [address] [facility] COMPREHEN SIVE METABOLIC PANEL ALKALINE PHOSPHATASE [ENZYMATIC ACTIVITY/VO LUME] IN SERUM OR PLASMA 133 U/L 40 - 150 12/16 Specimen Type: PLASMA Comment: No hemolysis noted. Ordering Provider: LIZA ISSA Report Released Date/Time: Dec 11, 2024 04:22 PM Reporting Lab: [facility] [address] [place] [phone] Performing Lab: [facility] [address] [facility] [address] [facility] COMPREHEN SIVE METABOLIC PANEL ASPARTATE AMINOTRANSF ERASE [ENZYMATIC ACTIVITY/VO LUME] IN SERUM OR PLASMA 27 U/L 5 - 34 12/16 Specimen Type: PLASMA Comment: No hemolysis noted. Ordering Provider: LIZA ISSA Report Released Date/Time: Dec 11, 2024 04:22 PM Reporting Lab: [facility] [address] [address] Performing Lab: [facility] [address] [facility] [address] [facility] COMPREHEN SIVE METABOLIC PANEL ALANINE AMINOTRANSF ERASE [ENZYMATIC ACTIVITY/VO LUME] IN SERUM OR PLASMA 16 U/L 8 - 40 12/16 Specimen Type: PLASMA Comment: No hemolysis noted. Ordering Provider: LIZA ISSA Report Released Date/Time: Dec 11, 2024 04:22 PM Reporting Lab: [facility] [address] [address] Performing Lab: [facility] [address] [facility] [address] [facility] COMPREHEN SIVE METABOLIC PANEL GLOMERULAR FILTRATION RATE/1.73 SQ M.PREDICTED [VOLUME RATE/AREA] IN SERUM, PLASMA OR BLOOD BY CREATININE- BASED FORMULA (CKD-EPI 2020) 86.9 60 12/16 Specimen Type: PLASMA Comment: No hemolysis noted. Ordering Provider: LIZA ISSA Report Released Date/Time: Dec 11, 2024 04:22 PM Reporting Lab: [facility] [address] [facility] [address] Performing Lab: [facility] [address] [place] [phone] [facility] TSH (MA-PB) THYROTROPIN [UNITS/VOLU ME] IN SERUM OR PLASMA 3.281 u[IU]/ mL 0.47 - 5 08/11 Specimen Type: SERUM No comment entered. Ordering Provider: JEANINE CARDENAS Report Released Date/Time: Aug 11, 2024 02:09 PM Reporting Lab: [facility] [address] [place] [phone] Performing Lab: [address] [address] [facility] HGA1C HEMOGLOBIN A1C/HEMOGLO BIN.TOTAL IN BLOOD 7.1 4.0 - 6.0 08/11 H Specimen Type: BLOOD No comment entered. Ordering Provider: JEANINE CARDENAS Report Released Date/Time: Aug 11, 2024 02:09 PM Reporting Lab: [facility] [address] [facility] [address] Performing Lab: [address] [address] [facility] LIPID PANEL (STL) CHOLESTEROL [MASS/VOLUM E] IN SERUM OR PLASMA 98 mg/dL 0 - 200 08/11 Specimen Type: PLASMA Comment: No hemolysis noted. Ordering Provider: JEANINE CARDENAS Report Released Date/Time: Aug 11, 2024 02:09 PM Reporting Lab: [facility] [address] [facility] [address] Performing Lab: [address] [address] [facility] LIPID PANEL (STL) TRIGLYCERID E [MASS/VOLUM E] IN SERUM OR PLASMA 51 mg/dL 0 - 150 08/11 Specimen Type: PLASMA Comment: No hemolysis noted. Ordering Provider: JEANINE CARDENAS Report Released Date/Time: Aug 11, 2024 02:09 PM Reporting Lab: [facility] [address] [place] [phone] Performing Lab: [facility] [address] [place] [phone] [facility] LIPID PANEL (STL) CHOLESTEROL IN LDL [MASS/VOLUM E] IN SERUM OR PLASMA BY CALCULATION 43 mg/dL 08/11 Specimen Type: PLASMA Comment: No hemolysis noted. Ordering Provider: JEANINE CARDENAS Report Released Date/Time: Aug 11, 2024 02:09 PM Reporting Lab: [facility] [address] [place] [phone] Performing Lab: [facility] [address] [place] [phone] [facility] LIPID PANEL (STL) CHOLESTEROL IN HDL [MASS/VOLUM E] IN SERUM OR PLASMA 45 mg/dL 40 08/11 Specimen Type: PLASMA Comment: No hemolysis noted. Ordering Provider: JEANINE CARDENAS Report Released Date/Time: Aug 11, 2024 02:09 PM Reporting Lab: [facility] [address] [place] [phone] Performing Lab: [facility] [address] [place] [phone] [facility] VITAMIN D, 25-HYDROX Y 25-HYDROXYV ITAMIN D3 [MASS/VOLUM E] IN SERUM OR PLASMA 31.4 ng/mL 30 - 96 08/11 Specimen Type: SERUM No comment entered. Ordering Provider: JEANINE CARDENAS Report Released Date/Time: Aug 11, 2024 02:09 PM Reporting Lab: [facility] [address] [place] [phone] Performing Lab: [facility] [address] [place] [phone] [facility] B12 COBALAMIN (VITAMIN B12) [MASS/VOLUM E] IN SERUM OR PLASMA 400 pg/mL 213 - 816 08/11 Specimen Type: SERUM No comment entered. Ordering Provider: JEANINE CARDENAS Report Released Date/Time: Aug 11, 2024 02:09 PM Reporting Lab: [facility] [address] [facility] [address] Performing Lab: [facility] [address] [facility] [address] [facility] COMPREHEN SIVE METABOLIC PANEL CREATININE [MASS/VOLUM E] IN SERUM OR PLASMA 1.18 mg/dL 0.7 - 1.3 08/11 Specimen Type: PLASMA Comment: No hemolysis noted. Ordering Provider: JEANINE CARDENAS Report Released Date/Time: Aug 11, 2024 02:09 PM Reporting Lab: [facility] [address] [place] [phone] Performing Lab: [facility] [address] [place] [phone] [place] [address] COMPREHEN SIVE METABOLIC PANEL UREA NITROGEN [MASS/VOLUM E] IN SERUM OR PLASMA 23.5 mg/dL 9.0 - 25.0 08/11 Specimen Type: PLASMA Comment: No hemolysis noted. Ordering Provider: JEANINE CARDENAS Report Released Date/Time: Aug 11, 2024 02:09 PM Reporting Lab: [facility] [address] [place] [phone] Performing Lab: [facility] [address] [place] [phone] [place] [address] COMPREHEN SIVE METABOLIC PANEL GLUCOSE [MASS/VOLUM E] IN SERUM OR PLASMA 94 mg/dL 72 - 99 08/11 Specimen Type: PLASMA Comment: No hemolysis noted. Ordering Provider: JEANINE CARDENAS Report Released Date/Time: Aug 11, 2024 02:09 PM Reporting Lab: [facility] [address] [place] [phone] Performing Lab: [facility] [address] [place] [phone] [facility] COMPREHEN SIVE METABOLIC PANEL SODIUM [MOLES/VOLU ME] IN SERUM OR PLASMA 139 meq/L 136 - 145 08/11 Specimen Type: PLASMA Comment: No hemolysis noted. Ordering Provider: JEANINE CARDENAS Report Released Date/Time: Aug 11, 2024 02:09 PM Reporting Lab: [facility] [address] [place] [phone] Performing Lab: [facility] [address] [facility] [address] [facility] COMPREHEN SIVE METABOLIC PANEL POTASSIUM [MOLES/VOLU ME] IN SERUM OR PLASMA 4.2 meq/L 3.5 - 5 08/11 Specimen Type: PLASMA Comment: No hemolysis noted. Ordering Provider: JEANINE CARDENAS Report Released Date/Time: Aug 11, 2024 02:09 PM Reporting Lab: [facility] [address] [place] [phone] Performing Lab: [address] [address] [facility] COMPREHEN SIVE METABOLIC PANEL CHLORIDE [MOLES/VOLU ME] IN SERUM OR PLASMA 105 meq/L 98 - 107 08/11 Specimen Type: PLASMA Comment: No hemolysis noted. Ordering Provider: JEANINE CARDENAS Report Released Date/Time: Aug 11, 2024 02:09 PM Reporting Lab: [facility] [address] [place] [phone] Performing Lab: [facility] [address] [place] [phone] [facility] COMPREHEN SIVE METABOLIC PANEL CARBON DIOXIDE, TOTAL [MOLES/VOLU ME] IN SERUM OR PLASMA 24 meq/L 22 - 31 08/11 Specimen Type: PLASMA Comment: No hemolysis noted. Ordering Provider: JEANINE CARDENAS Report Released Date/Time: Aug 11, 2024 02:09 PM Reporting Lab: [facility] [address] [place] [phone] Performing Lab: [facility] [address] [place] [phone] [facility] COMPREHEN SIVE METABOLIC PANEL CALCIUM [MASS/VOLUM E] IN SERUM OR PLASMA 9.7 mg/dL 8.4 - 10.4 08/11 Specimen Type: PLASMA Comment: No hemolysis noted. Ordering Provider: JEANINE CARDENAS Report Released Date/Time: Aug 11, 2024 02:09 PM Reporting Lab: [facility] [address] [facility] [address] Performing Lab: [facility] [address] [address] [facility] COMPREHEN SIVE METABOLIC PANEL PROTEIN [MASS/VOLUM E] IN SERUM OR PLASMA 7.7 g/dL 6 - 8.6 08/11 Specimen Type: PLASMA Comment: No hemolysis noted. Ordering Provider: JEANINE CARDENAS Report Released Date/Time: Aug 11, 2024 02:09 PM Reporting Lab: [facility] [address] [place] [phone] Performing Lab: [address] [address] [facility] COMPREHEN SIVE METABOLIC PANEL ALBUMIN [MASS/VOLUM E] IN SERUM OR PLASMA 3.9 g/dL 3.4 - 5 08/11 Specimen Type: PLASMA Comment: No hemolysis noted. Ordering Provider: JEANINE CARDENAS Report Released Date/Time: Aug 11, 2024 02:09 PM Reporting Lab: [facility] [address] [facility] [address] Performing Lab: [facility] [address] [place] [phone] [facility] COMPREHEN SIVE METABOLIC PANEL BILIRUBIN.T OTAL [MASS/VOLUM E] IN SERUM OR PLASMA 0.5 mg/dL 0.2 - 1.2 08/11 Specimen Type: PLASMA Comment: No hemolysis noted. Ordering Provider: JEANINE CARDENAS Report Released Date/Time: Aug 11, 2024 02:09 PM Reporting Lab: [facility] [address] [facility] [address] Performing Lab: [facility] [address] [place] [phone] [facility] COMPREHEN SIVE METABOLIC PANEL ALKALINE PHOSPHATASE [ENZYMATIC ACTIVITY/VO LUME] IN SERUM OR PLASMA 132 U/L 40 - 150 08/11 Specimen Type: PLASMA Comment: No hemolysis noted. Ordering Provider: JEANINE CARDENAS Report Released Date/Time: Aug 11, 2024 02:09 PM Reporting Lab: [facility] [address] [facility] [address] Performing Lab: [facility] [address] [facility] [address] [facility] COMPREHEN SIVE METABOLIC PANEL ASPARTATE AMINOTRANSF ERASE [ENZYMATIC ACTIVITY/VO LUME] IN SERUM OR PLASMA 20 U/L 5 - 34 08/11 Specimen Type: PLASMA Comment: No hemolysis noted. Ordering Provider: JEANINE CARDENAS Report Released Date/Time: Aug 11, 2024 02:09 PM Reporting Lab: [facility] [address] [place] [phone] Performing Lab: [facility] [address] [place] [phone] [facility] COMPREHEN SIVE METABOLIC PANEL ALANINE AMINOTRANSF ERASE [ENZYMATIC ACTIVITY/VO LUME] IN SERUM OR PLASMA 17 U/L 8 - 40 08/11 Specimen Type: PLASMA Comment: No hemolysis noted. Ordering Provider: JEANINE CARDENAS Report Released Date/Time: Aug 11, 2024 02:09 PM Reporting Lab: [facility] [address] [place] [phone] Performing Lab: [facility] [address] [place] [phone] [facility] COMPREHEN SIVE METABOLIC PANEL GLOMERULAR FILTRATION RATE/1.73 SQ M.PREDICTED [VOLUME RATE/AREA] IN SERUM, PLASMA OR BLOOD BY CREATININE- BASED FORMULA (CKD-EPI 2020) 63.2 60 08/11 Specimen Type: PLASMA Comment: No hemolysis noted. Ordering Provider: JEANINE CARDENAS Report Released Date/Time: Aug 11, 2024 02:09 PM Reporting Lab: [facility] [address] [address] Performing Lab: [facility] [address] [facility] [address] [facility] Vital Signs Combined list of inpatient and outpatient Vital Signs from Department of Defense and Veterans Affairs, ranging from 12 months to all on record, depending upon the facility. Vital Sign Value Date Comments Source SYSTOLIC BLOOD PRESSURE 139 12/16/19 12:52:02 [facility] DIASTOLIC BLOOD PRESSURE 74 025 12:52:02 [facility] PULSE OXIMETRY 96 12/15/2024 12:52:02 [facility] WEIGHT 215.8 12/15/2024 12:52:02 [facility] BMI 29 kg/m2 12/15/2024 12:52:02 [facility] PAIN 0 12/15/2024 12:52:02 [facility] HEIGHT 72 12/15/2024 12:52:02 [facility] TEMPERATURE 98 12/15/2024 12:52:02 [facility] PULSE 63 12/15/2024 12:52:02 [facility] RESPIRATION 16 12/15/2024 12:52:02 [facility] SYSTOLIC BLOOD PRESSURE 135 08/11/20 13:38:00 [facility] DIASTOLIC BLOOD PRESSURE 70 024 13:38:00 [facility] PULSE OXIMETRY 97 08/11/2024 13:38:00 [facility] WEIGHT 198 08/11/2024 13:38:00 [facility] BMI 26 kg/m2 08/11/2024 13:38:00 [facility] PAIN 0 08/11/2024 13:38:00 [facility] HEIGHT 73 08/11/2024 13:38:00 [facility] TEMPERATURE 98 08/11/2024 13:38:00 [facility] PULSE 65 08/11/2024 13:38:00 [facility] RESPIRATION 16 08/11/2024 13:38:00 [facility] Encounters Combined list of: 1) Encounters from Department of Veterans Affairs facilities going backup to the last 18 months, not all VA inpatient encounters are included; 2) Encounters from the Department of Defense facilities going backup to 280 months. Location Location Details Encounter Type Encounter Number Reason For Visit Attending Provider ADM Date DC Date Status Disposition Source [facility] Outpatient Encounter [id number] [facility] [place] [facility] Outpatient Encounter [id number] 07/26 [place] [facility] Outpatient Encounter [id number] 08/22 [facility] [place] [facility] Outpatient Encounter [id number] 09/18 [place] [facility] [place] [facility] QNHP OL DIG ASSMT&MGMT 5-10 [id number] Diagnos is: ICD-10- CM Z79.01 rn long term care (curren t) use of anticoa BARBARA Martinez 09/20 [place] [facility] Outpatient Encounter [id number] 09/26 [facility] [place] [facility] Outpatient Encounter [id number] 09/30 [place] [facility] Outpatient Encounter [id number] 10/04 [facility] Outpatient Encounter [id number] 10/20 [facility] Outpatient Encounter [id number] 11/07 [facility] [place] [facility] Outpatient Encounter [id number] 11/12 [place] [facility] [place] [facility] Outpatient Encounter [id number] ALBINO OSBORN 11/13 [place] [facility] [place] [facility] Outpatient Encounter [id number] [place] [facility] Outpatient Encounter [id number] 12/01 [facility] [place] [facility] Outpatient Encounter [id number] JILL MARTINES E 12/01 [place] [facility] Outpatient Encounter [id number] 12/08 [facility] [place] [facility] Outpatient Encounter [id number] 12/08 [place] [facility] Outpatient Encounter [id number] Gabe BOLDEN 12/12 [facility] FEE [id number] Diagnos is: ICD-10- CM F33.40 Major depress rigoberto disorde r, recurre nt, in remissi on, unsp ,12/16 [facility] OFFICE O/P EST LOW 20 MIN [id number] Diagnos is: ICD-10- CM F33.40 Major depress rigoberto disorde r, recurre nt, in remissi on, unsp ESCALERA,12/16 [facility] EMERGENCY DEPT VISIT MOD MDM [id number] Diagnos is: ICD-10- CM M79.605 Pain in left leg DIAL,PRECIOUS S 12[facility] Encounter [id number] DIAL,PRECIOUS S 12/[address] [facility] GAIT TRAINING THERAPY [id number] Diagnos is: ICD-10- CM M25.562 Pain in left knee RAMY JUDGE [facility] MTMS BY PHARM EST 15 MIN [id number] Diagnos is: ICD-10- CM Z51.81 Encount er for therape utic drug level monitor BARBARA Hand 12/22 [facility] Outpatient Encounter [id number] 12/22 [facility] Outpatient Encounter [id number] 12/23 [facility] OFF[facility] O/P EST LOW 20 MIN [id number] Diagnos is: ICD-10- CM I25.10 Athscl heart disease of [place] coronar y artery w/o ang pctrs DAVID TOURE 12/31 [facility] Outpatient Encounter [id number] PATTIE MORENO 01/06 [facility] Outpatient Encounter [id number] 01/12 [facility] Outpatient Encounter [id number] 01/26 [facility] Outpatient Encounter [id number] 01/26 [facility] Outpatient Encounter [id number] 01/27 [facility] Outpatient Encounter [id number] KAIA SUAREZ 02/03 [place] Outpatient Encounter [id number] 02/24 [place] [facility] Outpatient Encounter [id number] 02/[facility] En[facility] [id number] 02/26 [facility] Outpatient Encounter [id number] 02/26 [facility] Outpatient Encounter [id number] GLEN PARADA 03/05 [facility] Out[facility] Encounter [id number] 05/11 [facility] Outpatient Encounter [id number] 07/01 [facility] Outpatient Encounter [id number] 07/15 [facility] Outpatient Encounter [id number] CAIO GALVAN 07/17 [facility] Outpatient Encounter [id number] 07/20 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 ELMER CERNA 07/23 [facility] Outpatient Encounter [id number] 07/27 [facility] Outpatient Encounter [id number] RONALD JOHNSON 07/28 [facility] En[facility] [id number] 08/05 [facility] Outpatient Encounter [id number] JEANINE CARDENAS 08/05 [facility] Encounter [id number] JEANINE CARDENAS 08/09 [facility] Outpatient Encounter [id number] SIMIN LEE 08/11 [facility] En[facility] [id number] JEANINE CARDENAS 08/12 [facility] Out[facility] Encounter [id number] SIMIN LEE 08/21 [facility] Out[facility] Encounter [id number] 08/23 [facility] Encounter [id number] DAVID TOURE 08/25 [facility] En[facility] [id number] JEANINE CARDENAS 08/25 [facility] Out[facility] Encounter [id number] DALETIMO ParekhEDMUNDO Herr 10/03 [facility] Outpatient Encounter [id number] 11/22 [facility] Outpatient Encounter [id number] 12/04 [facility] Out[facility] Encounter [id number] SIMIN LEE 12/07 [facility] En[facility] [id number] JEANINE CARDENAS 12/07 [facility] Outpatient Encounter [id number] 2 12/[facility] En[facility] [id number] 12/15 [facility] Outpatient Encounter [id number] 12/15 [facility] OFFICE O/P EST MOD 30 MIN [id number] [id number] Diagnos is: ICD-10- CM E11.9 Type 2 diabete s mellitu s without complic ations LIZA ISSA 12/15 [facility] Outpatient Encounter [id number] 12/15 [facility] IMG RTA DETCJ/MNTR DS STAFF [id number] Diagnos is: ICD-10- CM Z13.5 Encount er for screeni ng for eye and ear disorde rs SIMIN LEE Urbano C 12/15 [facility] IMG RTA DETC/MNTR DS PHY/QHP [id number] [id number] Diagnos is: ICD-10- CM Z13.5 Encount er for screeni ng for eye and ear disorde rs SIMIN LEE Urbano C 12/[address] [facility] NQHP OL DIG ASSMT&MGMT 5-10 [id number] [id number] Diagnos is: ICD-10- CM Z51.81 Encount er for therape utic drug level monitor PAM Sin 12/28 [facility] NQHP OL DIG ASSMT&MGMT 5-10 [id number] Diagnos is: ICD-10- CM I82.409 Acute embolis m and thombos unsp deep vn unsp lower extremi ty PAM LICONA 12/30 [facility] MTMS BY PHARM EST 15 MIN [id number] [id number] Diagnos is: ICD-10- CM Z51.81 Encount er for therape utic drug level monitor RETA Alicea 01/07 [facility] Social History Combined list of available smoking, tobacco, and other social history from Department of Defense and Veterans Affairs facilities. Social History Type Response Date Comment Source Tobacco smoking status KSIS VA-TOBACCO FORMER USER 07/23/2024 [facility] History of tobacco use VA-TOBACCO QUIT 15 YRS OR MORE 07/23/2024 [facility] History of tobacco use VA-TOBACCO QUIT 15 YRS OR MORE 04/09/2023 [facility] History of tobacco use VA-TOBACCO NEVER USED 01/10/2022 [facility] History of tobacco use VA-TOBACCO FORMER USER 09/04/2021 [facility] History of tobacco use VA-TOBACCO FORMER USER 07/26/2020 [facility] History of tobacco use VA-TOBACCO QUIT 15 YRS OR MORE 04/25/2020 [facility] History of tobacco use VA-TOBACCO NEVER USED 04/08/2019 [facility] History of tobacco use QUIT TOBACCO >7 YEARS AGO 10/17/2016 [facility] History of tobacco use V7-NO TOBACCO USE > 7 YEARS 03/21/2016 38 YEARS [facility] History of tobacco use NON-TOBACCO USER 04/05/2015 [facility] History of tobacco use V7-NO TOBACCO USE > 7 YEARS 04/05/2015 [facility] History of tobacco use V7-LIFETIME TOBACCO NON USER 07/19/2014 [facility] History of tobacco use V7-LIFETIME TOBACCO NON USER 05/30/2013 [facility] History of tobacco use V7-NO TOBACCO USE > 7 YEARS 06/03/2012 [facility] History of tobacco use V7-LIFETIME TOBACCO NON USER 05/09/2011 [facility] History of tobacco use V7-NO TOBACCO USE > 7 YEARS 06/03/2009 [facility] History of tobacco use V7-TOBACCO QUIT DATE 03/09/2008 [facility] History of tobacco use V7-HX TOBACCO USER >12 MONTHS <7 YEARS 03/09/2008 [facility] History of tobacco use V7-LIFETIME TOBACCO NON USER 01/31/2007 [facility] History of tobacco use V7-LIFETIME NON/TOBACCO USER 01/01/2006 [facility] History of tobacco use LIFETIME NON-TOBACCO USER 12/10/2002 [facility] History of tobacco use CURRENT NON-TOBACCO USER-HX OF USE 11/13/2001 [facility] History of tobacco use CURRENT NON-TOBACCO USER-RECENTLY QUIT 03/18/2001 stopped long ago [facility] History of tobacco use CURRENT NON-TOBACCO USER-HX OF USE 12/03/2000 pt quit 15 yrs ago. [facility] Advance Directives List of completed, amended, or rescinded Advance Directives on record at Department of [facility] facilities. An actual copy of the Directive is not included. Date Advance Directive Provider Source 06/02/1997 ADVANCE DIRECTIVE MARILYN BARRERA [facility]
--- OUTSIDE RECORDS SUMMARY | 2025-01-15 04:24 | XMS_ITS ---
Author Name [facility] [place] [facility] [place] Address [address] [place] [address] Care Team Providers Care Wire Harness Assembler Name Role Phone TI JOSHUA Primary Care Provider Unavailabl e SERA ISSA Primary Care Provider Unavailabl e Insurance Providers: All historical and current Section Date Range: From patient's date of to the date document was created. This section includes the names of all active insurance providers for the patient. Insurance Provider Type of Coverage Plan Name Start of Policy Coverage End of Policy Coverage Group Number Member ID Insurance Provider's Telephone Number Policy Robles's Name Patient's Relationship to Policy Robles [facility] (WNR) MEDICARE ADVANTAGE [facility] (WNR) Aug 23, 2023 [id number] MARY GRACE CASEY PATIENT [facility] (WNR) MEDICARE ADVANTAGE [facility] (WNR) Nov 21, 2021 [id number] [phone] MARY GRACE CASEY PATIENT MEDICAID (WNR) MEDICAID MEDIC AID (WNR) Sep 23, 2016 MEDICAI D [id number] EMILY McnairMARY GRACE PATIENT MEDICARE (WNR) MEDICARE (M) PART B Apr 23, 2007 PART B [id number] [phone] MARY GRACE CASEY PATIENT MEDICARE (WNR) MEDICARE (M) PART B Apr 23, 2007 PART B [id number] [phone] EMILY McnairMARY GRACE PATIENT MEDICARE (WNR) MEDICARE (M) PART A Dec 22, 2005 PART A [id number] VAUGHNMARY GRACE HEBERT PATIENT MEDICARE (WNR) MEDICARE (M) PART A Dec 22, 2005 PART A [id number] [phone] EMILY McnairMARY GRACE PATIENT MEDICARE PART D (WNR) MEDICARE (M) PART D Nov 21, 2021 PART D [id number] [phone] EMILY McnairMARY GRACE [facility] (WNR) MEDICARE ADVANTAGE [facility] (WNR) Nov 21, 2021 [id number] [phone] IRISHMONSEMARY GRACE Spears [facility] (WNR) MEDICARE ADVANTAGE [facility] (WNR) Nov 21, 2021 [id number] [phone] EMILY MARY GRACE Mcnair [facility] SPECT ERA VISIO N Sep 23, 2022 [id number] [phone] EMILY MARY GRACE Mcnair PATIENT Selected Encounter This section includes the information on record at [place] for the Encounter. Date/Time Encounter Type Encounter Description Reason Provider Source Jul 23, 2024 01:30 PM MTMS BY PHARM DEVELOPMENT WRITER 15 MIN CLINICAL PHARMACY ICD-10-CM Z79.899 Other buttermaker continuous churn (current) drug therapy LY CERNA Iglesia Encounter Template Text not used by [place] Assessments - Encounter Diagnoses This section includes the primary and secondary diagnoses documented for the Encounter. Date/Time Primary/Secondary Diagnosis Diagnosis Name Provider Source Jul 23, 2024 01:49 PM PRIMARY Other buttermaker continuous churn (current) drug therapy LY CERNA [facility] Plan of Treatment: Future Appointments (+ 6 months) and Future Tests (+/- 45 days) The Plan of Treatment section includes future care activities for the patient from all [place] treatmentfacilities. This section includes future appointments and future orders which are active, pending or scheduled. Future Appointments This section includes appointments that were scheduled to occur 6 months from the date of the Encounter, up to a maximum of 20 appointments. The data comes from all [place] treatment facilities. Appointment Date/Time Appointment Type Appointme nt Facility Name Aug 05, 2024 01:00 PM AMBULATORY - MEDICINE [facility] Aug 25, 2024 01:00 PM AMBULATORY - MEDICINE [facility] Dec 15, 2024 01:00 PM AMBULATORY - MEDICINE [facility] Dec 15, 2024 02:00 PM AMBULATORY - NONE [facility] Lab Results: +/- 30 days of the encounter This section includes the Chemistry and Hematology Lab Results on record with [place] for the patient. Radiology Reports and Pathology Reports are provided separately, in subsequent sections. Lab Results This section contains the Chemistry/Hematology Results that were resulted 30 days before or 30 daysafter the date of the Encounter. Date/Time Source Result Type Result - Unit Interpretation Reference Range Specimen Type Comment Aug 11, 2024 02:37 PM [facility] HGA1C BLOOD Specimen Type: BLOOD No comment entered. Ordering Provider: JEANINE CARDENAS Report Released Date/Time: Aug 11, 2024 02:09 PM Reporting Lab: [facility] [address] [facility] [phone] Performing Lab: [facility] [address] [facility] [phone] HGA1C 7.1 H 4.0-6.0 Aug 11, 2024 02:37 PM [facility] LIPID PANEL (STL) PLASMA Specimen Type: PLASM A Comment: No hemolysis noted. Ordering Provider: JEANINE CARDENAS Report Released Date/Time: Aug 11, 2024 02:09 PM Reporting Lab: [facility] [address] [facility] [phone] Performing Lab: [facility] [address] [facility] [phone] CHOLESTEROL 98 mg/dL 0-200 TRIGLYCERIDE 51 mg/dL 0-150 CALCULATED LDL 43 mg/dL HDL(New) 45 mg/dL >40 Aug 11, 2024 02:37 PM [facility] TSH (MA-PB) SERUM Specimen Type: SERUM No comment entered. Ordering Provider: JEANINE CARDENAS Report Released Date/Time: Aug 11, 2024 02:09 PM Reporting Lab: [facility] [address] [facility] [phone] Performing Lab: [facility] [address] [place] [phone] TSH 3.281 u[IU]/mL 0.47-5 Aug 11, 2024 02:37 PM [facility] VITAMIN D, 25-HYDROXY SERUM Specimen Type: SE RUM No comment entered. Ordering Provider: JEANINE CARDENAS Report Released Date/Time: Aug 11, 2024 02:09 PM Reporting Lab: [facility] [address] [place] [phone] Performing Lab: [address] [phone] VITAMIN D, 25-HYDROXY 31.4 ng/mL 30-96 Aug 11, 2024 02:37 PM [facility] B12 SERUM Specimen Type: SERUM No comment entered. Ordering Provider: JEANINE CARDENAS Report Released Date/Time: Aug 11, 2024 02:09 PM Reporting Lab: [facility] [address] [place] [phone] Performing Lab: [facility] [address] [place] [phone] B12 400 pg/mL 213-816 Aug 11, 2024 02:37 PM [facility] COMPREHENSIVE METABOLIC PANEL PLASMA Specimen Type: PLASMA Comment: No hemolysis noted. Ordering Provider: JEANINE CARDENAS Report Released Date/Time: Aug 11, 2024 02:09 PM Reporting Lab: [facility] [address] [place] [phone] Performing Lab: [facility] [address] [place] [phone] CREATININE 1.18 mg/dL 0.7-1.3 UREA NITROGEN 23.5 mg/dL 9.0-25.0 GLUCOSE 94 mg/dL 72-99 SODIUM 139 meq/L 136-145 POTASSIUM 4.2 meq/L 3.5-5 CHLORIDE 105 meq/L 98-107 CARBON DIOXIDE 24 meq/L 22-31 CALCIUM 9.7 mg/dL 8.4-10.4 PROTEIN 7.7 g/dL 6-8.6 ALBUMIN 3.9 g/dL 3.4-5 TOTAL BILIRUBIN 0.5 mg/dL 0.2-1.2 ALKALINE PHOSPHATASE 132 U/L 40-150 AST/SGOT 20 U/L 5-34 ALT/SGPT 17 U/L 8-40 EGFR (CKD-EPI 2020) 63.2 >60 Aug 11, 2024 02:37 PM [facility] CBC BLOOD Specimen Type: BLOOD No comment entered. Ordering Provider: JEANINE CARDENAS Report Released Date/Time: Aug 11, 2024 02:09 PM Reporting Lab: [facility] [address] [facility] [phone] Performing Lab: [facility] [address] [facility] [phone] WBC 6.0 10*3/uL 3.6-11.2 RBC 3.92 10*6/uL L 4.10-5.70 HGB 11.0 g/dL L 13.1-16.8 HCT 34.9 L 38.2-48.4 MCV 89.0 fL 80.0-100.0 MCH 28.1 pg 27.0-34.0 MCHC 31.5 g/dL L 33.0-36.0 PLT 291 10*3/uL 150-400 MPV 8.8 fL 7.5-11.2 RDW 19.2 H 11.8-15.1 LYMPHOCYTES, AUTO % 35 MONOCYTES, AUTO % 7 NEUTROPHILS, AUTO % 55 EOSINOPHILS, AUTO % 3 BASOPHILS, AUTO % 1 LYMPHOCYTES, ABSOLUTE 2.12 10*3/uL 0.77- 4.50 MONOCYTES, ABSOLUTE 0.39 10*3/uL 0.19-0. 80 NEUTROPHILS, ABSOLUTE 3.27 10*3/uL 2.10- 8.00 EOSINOPHILS, ABSOLUTE 0.15 10*3/uL 0.00- 0.60 BASOPHILS, ABSOLUTE 0.05 10*3/uL 0.00-0. 20 Aug 11, 2024 01:43 PM [facility] GLUCOSE,BLOOD-poct (STL) BLOOD Specimen Type: BLOOD Comment: Test Performed by: [id number] Meter #: [id number] Ordering Provider: JEANINE CARDENAS Report Released Date/Time: Aug 12, 2024 09:59 AM Reporting Lab: [facility] [address] [facility] [phone] Performing Lab: [facility] [address] [facility] [phone] GLUCOSE,BLOOD-poct (STL) 100 mg/dL H 72-99 Social History: Smoking Status (Most current) and Tobacco Use (All prior to encounter date) This section includes the most current, and the historical, smoking and tobacco- related health factors from the [place] facility where the Encounter took place. Current Smoking Status This section includes the most current smoking, or tobacco-related health factor, from the [place] facility where the Encounter took place. Date/Time Current Smoking Status Comment Facil ity Jul 23, 2024 01:30 PM [place]-TOBACCO FORMER USER [facility] Tobacco Use History This section includes a history of the smoking, or tobacco-related health factors, that were collected on or before the date of the Encounter. The data comes from the [place] facility where the Encounter took place. Date/Time Smoking Status/Tobacco Use Comment F acility Jul 23, 2024 01:30 PM [place]-TOBACCO QUIT 15 YRS OR MORE [facility] Advance Directives: All historical and current Section Date Range: From patient's date of to the date document was created. This section includes ALL of a patient's completed or amended [place] Advance and Rescinded Directives. The entries below indicate that a directive exists for the patient, but an actual copy is not included with this document. The data comes from all [place] facilities. Date Advance Directives Provider Source Jun 02, 1997 ADVANCE DIRECTIVE MARILYN BARRERA [facility] Encounter Notes: All associated encounter notes This section contains the clinical notes associated to the Encounter. Date/Time Encounter Note(s) Provider Source Jul 23, 2024 01:37 PM INTERNAL MEDICINE CLINICAL PHARMACIST MEDICATION MGT NOTE: LOCAL TITLE: CLINICAL PHARMACIST NOTE STL STANDARD TITLE: INTERNAL MEDICINE CLINICAL PHARMACIST MEDICATION DATE OF NOTE: JUL 23, 2024@13:37 ENTRY DATE: JUL 23, 2024@13:37:41 AUTHOR: SHOR,LY HARSH EXP COSIGNER: URGENCY: STATUS: COMPLETED CLINICAL PHARMACIST NOTE - INTAKE CLINIC MARY GRACE LAU is a 78 yo MALE new to the [place] seen F2F for initial visit for new patient medication reconciliation and education. [place] was identified by name and . Pt self-reports the following chronic disease states: DM, VTE, neuropathy, GERD, depression (see problem list for additional) Current non-VA providers: Vinicio SANTOS ([facility]) Pt is to be seen for initial visit at the [place] 08/05/24 Expresses concern for recurrent UTI that required hospitalization. Would like to see specialty provider for additional eval. 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 Pt would like to obtain the following medications from the [place]: apixaban 2.5mg PO BID gabapentin 300mg PO BID omeprazole 20mg PO QAMAC sertraline 25mg PO daily 2. Pt would like to continue obtaining the following medications from outside the [facility]: dulaglutide 1.5mg weekly empagliflozin/metformin 5/1000mg one tablet PO BID 3: Formulary Considerations: apixaban requires PADR + anticoag clinic referral 4. Current medication supply status: sufficient P: 1. The following medications are available per [place] formulary and may be ordered by PCP if deemed clinically appropriate at follow-up: apixaban 2.5mg PO BID gabapentin 300mg PO BID omeprazole 20mg PO QAMAC sertraline 25mg PO daily 2. Due to unclear indication/appropriateness of therapy, the following medications may warrant additional assessment by PCP: N/A 3. The following medications will require a non-formulary drug consult: apixaban 4. Recommended labs based on current medications/chronic disease states reported by pt: A1c, CMP, lipid panel, uACR, CBC 5. Consider the following referrals/consults based on patient discussion: - concerned regarding recent recurrent UTI, would like to learn additional options for management 6. Reviewed [facility] pharmacy process with patient; will mail pt [facility] Pharmacy information pamphlet. Specifically reviewed: - on-site pharmacy is intended for new prescriptions - refills of chronic medications are sent from a central mail order pharmacy - how/when to request refills (mail, phone, [employer]) - formulary review process or rationale for changing (if applicable) - counseling points for formulary medication switches (if applicable) - need for a veterans ID card to sheepskin pickler medications in the future - tablet splitting for some medications 7. Will additional sign provider as FYI. - Educated vet on risks/benefits of all medications during med rec. - [place] verbalized understanding to all plans discussed today. Questions were answered to vet's satisfaction. Time spent with pt: 15 minutes Tobacco Use Screening - AT,DE,L,M,N,P,PH,PS,S: The patient is a former tobacco user. The patient quit fifteen or more years ago. Alcohol Use Screen (AUDIT-C) - V: Alcohol Screen: SCREEN FOR ALCOHOL (AUDIT-C) An alcohol screening test (AUDIT-C) was negative (score=0). 1. How often did you have a drink containing alcohol in the past year? Consider a drink to be a 12 ounce can or bottle of regular beer, 8 ounces of malt liquor, a 5 ounce glass of table wine, or a 1.5 ounce shot of liquor (like scotch, gin, or vodka). Never 2. How many drinks containing alcohol did you have on a typical day when you were drinking in the past year? Response not required due to responses to other questions. 3. How often did you have six or more drinks on one occasion in the past year? Response not required due to responses to other questions. PBM PharmD Pharmacotherapy Rem V12: PHARMACIST INTERVENTIONS: ALCOHOL USE DISORDER Completed alcohol use screening (AUDIT-C) Medication reconciliation (changes to active VA and non-VA medication lists to reconcile differences) Changes to medication lists made Add or renew medication Refer or transition back to provider from Clinical Pharmacist Practitioner clinic /january/ Ly Shor, Pharm.D., BCPS [facility] [place] Former Hand Signed: 07/24/2024 07:34 Receipt Acknowledged By: 07/24/2024 17:07 /january/ Marleny Arboleda MD STAFF PHYSICIAN 12/16/2024 13:17 /january/ SERA ISSA STAFF PHYSICIAN LY CERNA [facility]
--- OUTSIDE RECORDS SUMMARY | 2025-01-15 04:24 | XMS_ITS | Patient Health Record ---
Author Organization [facility] Office Address [address] [facility] [address] [facility] [address] [place] [address] Care Team Providers Care Health Care Facility Administrator Name Role Phone Austin Melvin Unavailable [phone] REASON FOR REFERRAL No Information PROBLEMS Problem Type ICD Code Onset Dates Problem Status W/U Status Risk SNOMED Code Notes Problem Type 2 diabetes mellitus with diabetic chronic kidney disease (E11.22) Active confirmed Diabetic renal disease (062122217) Problem Hyperlipidemia, unspecified (E78.5) Active confirmed Hyperlipidemia (75476512) Problem Essential hypertension (I10) Active confirmed Essential hypertension (30799103) Problem Stage 3 chronic kidney disease (N18.30) Active confirmed Chronic kidney disease stage 3 (disorder) (243346808) Encounters Encounter Location Date Provider Diagnosis [facility] [address] [facility] [address] [place] [address] 09/09/2024 Melvin Avila Stage 3 chronic kidn ey disease N18.30 ; Type 2 diabetes mellitus with diabetic chronic kidney disease E11.22 ; Essential hypertension I10 and Hyperlipidemia, unspecified E78.5 ASSESSMENTS Encounter Date Diagnosis Assessment Notes Treatment Notes Treatment Clinical Notes Section Notes 09/09/2024 Type 2 diabetes mellitus with diabetic chronic kidney disease (ICD-10 - E11.22) 09/09/2024 Stage 3 chronic kidney disease (ICD-10 - N18.30) 09/09/2024 Essential hypertension (ICD-10 - I10) 09/09/2024 Hyperlipidemia, unspecified (ICD-10 - E78.5) PLAN OF TREATMENT No Information
--- OUTSIDE RECORDS SUMMARY | 2025-01-15 04:24 | XMS_ITS | Referral Summary ---
Author Organization [facility] er Address [address] [place] [address] Care Team Providers Care Pipe Recovery Specialist Name Role Phone No, Physician Unavailable Dear, Campbell Bullard DO Primary Care Provider + Allergies Active Allergy Reactions Criticality Noted Date Comments Amitriptyline Other (See comments) Low 07/04/2017 Anger Amitriptyline Hcl Swollen tongue,Angioedema High Morphine Unknown 07/04/2017 Oxcarbazepine Hallucinations,Other (See comments),Mental status changes Medium 01/18/2022 Penicillins Hives Medium 07/04/2017 Trazodone Other (See comments) Medium 01/18/2022 Medications atorvastatin (LIPITOR) 40 mg tablet Take 1 tablet (40 mg total) by mouth Active betamethasone (CELESTONE) 6 mg/mL injection Celestone Soluspan 6 mg/mL suspension for injection left shoulder Active gabapentin (NEURONTIN) 300 mg capsule 03/18/20 18 Active omeprazole (PriLOSEC) 20 mg capsule 04/08/20 18 Active tamsulosin (FLOMAX) 0.4 mg extended release capsule Take 1 capsule (0.4 mg total) by mouth Active ondansetron ODT (ZOFRAN-ODT) 4 mg disintegrating tablet Dissolve 1 tablet oral every 4 hours as needed for nausea or vomiting. 15 tablet 01/08/20 19 Active multivitamin tablet Take 1 tablet by mouth daily Active ergocalciferol (VITAMIN D) 50,000 unit capsule Take 1 capsule (50,000 Units total) by mouth once a week Active ferrous sulfate 325 mg (65 mg of elemental iron) tabletIndications: Iron Deficiency Anemia Take 1 tablet (325 mg total) by mouth daily with breakfast Active lisinopriL (PRINIVIL,ZESTRIL) 2.5 mg tablet Take 1 tablet (2.5 mg total) by mouth daily Active empagliflozin-metf ormin (Synjardy) 5-1,000 mg tablet Take by mouth Active montelukast (SINGULAIR) 10 mg tablet Take 1 tablet (10 mg total) by mouth nightly Active diclofenac sodium (VOLTAREN) 1 % gel Apply 4 g topically 4 (four) times a day as needed (leg discomfort) 200 g 3 08/06/20 22 Active mirabegron ER (MYRBETRIQ) 50 mg tablet extended release 24 hr Take 1 tablet (50 mg total) by mouth daily 90 tablet 3 05/15/20 23 Active Trulicity 1.5 mg/0.5 mL pen injector INJECT THE CONTENTS OF ONE PEN SUBCUTANEOUSLY WEEKLY DIRECTED 6 mL 3 07/16/20 23 Active Active Problems Problem Noted Date Diagnosed Date Varicose veins of right lower extremity with inf lammation 08/06/2022 Assessment & Plan (08/06/2022 12:13 PM BOOK STORE ASSOCIATE): Chronic, worsening - Refer to vascular surgery - start voltaren gel prn Disorder of arteries and arterioles, unspecified 07/11/2022 Knee pain 07/11/2022 Localized osteoarthrosis 07/11/2022 Low back pain 07/11/2022 Left hand pain 05/22/2022 Assessment & Plan (05/22/2022 12:12 PM CDT): Chronic, recurrent with exacerbation - pain at 1st [facility] joint radiating up dorsal/lateral wrist. Hx of extensive surgical reconstruction years ago in the [employer]. Unclear if re-injury verses ligamentous injury verses possible gout. 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 -refer to vascular surgery Assessment & Plan (08/06/2022 12:10 PM BOOK STORE ASSOCIATE): Chronic, R anterior tibial (12/12); unprovoked per report - lifelong anticoagulation, reports had recurrent issues with thick blood but no known coagulation disorder per patient - eliquis 5mg bid Assessment & Plan (04/17/2022 10:02 AM CDT): Chronic, R anterior tibial (12/12); unprovoked per report - lifelong anticoagulation, reports had recurrent issues with thick blood but no known coagulation disorder per patient - eliquis 5mg bid Controlled type 2 diabetes m ellitus with circulatory disorder, without long-term current use of insulin 04/17/2022 Assessment & Plan (08/06/2022 12:14 PM BOOK STORE ASSOCIATE): Chronic Complications: CAD, HTN, Neuropathy A1c: 8.0 04/13, due for repeat Microalbumin: 35.2 04/13 Retinal Exam: due, recommend scheduling Monofilmament Exam: abnormal 04/17/22, diabetic shoes ordered Meds: - Empagliflozin/metformin 5/1000mg - Trulicity 3mg weekly - glipizide 10mg daily ACEI/ARB: lisinopril 2.5mg Asa: none, on eliquis 5mg bid Statin: lipitor 40mg Diabetes Education: previously completed Assessment & Plan (05/10/2022 10:12 AM CDT): Chronic Complications: CAD, HTN, Neuropathy A1c: 8.0 04/13 Microalbumin: 35.2 04/13 Retinal Exam: due, recommend scheduling Monofilmament Exam: abnormal 04/17/22, diabetic shoes ordered Meds: - Empagliflozin/metformin 5/1000mg - Trulicity 3mg weekly - glipizide 10mg daily ACEI/ARB: lisinopril 2.5mg Asa: none, on eliquis 5mg bid Statin: lipitor 40mg Diabetes Education: previously completed Reviewed with patient some mild increase in the Trulicity, he is doing well overall, no other changes recommended, did remind patient to schedule his diabetic retinal exam. Follow-up in 3 months for repeat A1c. Discussed positive hepatitis-C screen, explained this may be due to prior infection or may be false positive, RNA was negative, explained clearly patient does not have hepatitis-C active. Assessment & Plan (04/17/2022 9:22 AM CDT): Chronic Complications: CAD, HTN, Neuropathy A1c: 8.6 12/12, ordered today Microalbumin: 57.1 10/13, ordered today Retinal Exam: due, recommend scheduling Monofilmament Exam: abnormal 04/17/22, will order diabetic shoes Meds: - Empagliflozin/metformin 5/1000mg - Trulicity 1.5mg weekly - glipizide 10mg daily ACEI/ARB: lisinopril 2.5mg Asa: none, on eliquis 5mg bid Statin: lipitor 40mg Diabetes Education: previously completed Hypertension associated with diabetes 04/17/2022 Assessment & Plan (08/06/2022 12:20 PM BOOK STORE ASSOCIATE): Chronic, controlled - lisinopril 2.5mg Assessment & Plan (04/17/2022 9:19 AM CDT): Chronic, controlled - lisinopril 2.5mg Benign prostatic hyperplasia without lower urinary tract symptoms 04/17/2022 Assessment & Plan (04/17/2022 10:01 AM CDT): Chronic, stable - Urology, Dr. Dale - flomax 0.4mg Gastroesophageal reflux disease without esophagi tis 04/17/2022 Assessment & Plan (04/17/2022 9:11 AM CDT): Chronic, stable - omeprazole 20mg Coronary artery disease invo lving [place] coronary artery of [place] heart without angina pectoris 04/17/2022 Assessment & Plan (04/17/2022 9:20 AM CDT): Chronic, stable - Known CAD (thinks had stent placed po 2002) - eliquis 5mg bid Encounter for Medicare annual wellness exam 03/24 Assessment & Plan (04/17/2022 10:03 AM CDT): Medicare annual well exam completed - due for shingles vaccination - Due for abdominal aortic aneurysm screening -Due for diabetic eye exam, recommended obtaining appointment Former smoker 04/17/2022 Assessment & Plan (04/17/2022 9:04 AM CDT): Quit 38 years ago -Not candidate for lung cancer screening - is due for abdominal aortic aneurysm screening Diabetic polyneuropathy asso ciated with type 2 diabetes mellitus 04/17/2022 Assessment & Plan (04/17/2022 9:23 AM CDT): Chronic, stable - Gabapentin 300mg bid Class 1 obesity due to exces s calories with serious comorbidity and body mass index (BMI) of 32.0 to 32.9 in adult 04/17/2022 Assessment & Plan (04/17/2022 10:04 AM CDT): Recommend weight loss, continue low-carbohydrate diet Abdominal pain, epigastric 11/30/2019 Cognitive impairment 10/07/2019 Neuropathy 10/07/2019 Resolved Problems Problem Noted Date Diagnosed Date Resolved Date Bipolar 1 disorder 04/17/2022 Assessment & Plan (04/17/2022 9:16 AM CDT): Chronic, stable - celexa 10mg Immunizations Immunization Administration Dates Next Due H1N1 All Forms 11/24/2009 Influenza, Trivalent, IM (MDV) 10/03/2016 Influenza, Trivalent, Preser vative Free, Intramuscular 10/17/2016 Influenza, Unspecified 06/23/2022,2021(Deferred: Patient Refused),06/23/2021,06/23/2021(Deferre d: Patient Refused),06/23/2020,06/23/2020(Deferre d: Patient Refused),06/18/2015,06/03/2012 Pneumococcal Conjugate PCV 13 10/17/2016 Pneumococcal Conjugate, Unspecified 03/11/2016 Pneumococcal Polysaccharide PPV23 10/03/2016, Pneumococcal, Unspecified 10/03/2016 Td, Unspecified 12/08/2000 Td, adsorbed 02/24/1998 Tdap 06/03/2012 Social History Tobacco Use Types Packs/Day Years Used Date Smoking Tobacco: Former Smokeless Tobacco: Never Tobacco Cessation:Counseling Given: Not Answered Comments:quit 38 years ago Alcohol Use Standard Drinks/Week Comments No 0 (1 standard drink = 0.6 oz pur e alcohol) PHQ-2 Answer Date Recorded PHQ-2 Total Score (If total score is 3 or more points, staff should administer the PHQ-9) 0 04/17/2022 Personal Safety Answer Date Recorded Getting School Help Needed Not on file 11/23 Sex and Gender Information Value Date Recorded Sex Assigned at Not on file Legal Sex Male 10:18 AM CDT Gender Identity Not on file Sexual Orientation Not on file Last Filed Vital Signs Vital Sign Reading Time Taken Comments Blood Pressure 137/63 11/20/2022 4:30 PM BOOK STORE ASSOCIATE Pulse 65 11/20/2022 4:55 PM BOOK STORE ASSOCIATE Temperature 36 C (96.8 F) 11/20/2022 10:41 AM BOOK STORE ASSOCIATE Respiratory Rate 18 11/20/2022 10:41 AM BOOK STORE ASSOCIATE Oxygen Saturation 100% 11/20/2022 4:55 PM BOOK STORE ASSOCIATE Inhaled Oxygen Concentration - - Weight 104.8 kg (231 lb) 11/20/2022 10:41 AM BOOK STORE ASSOCIATE Height 177.8 cm (5' 10 ) 11/13/2022 1:42 PM BOOK STORE ASSOCIATE Body Mass Index 33.15 11/13/2022 1:42 PM BOOK STORE ASSOCIATE Plan of Treatment Not on file Procedures Procedure Name Priority Date/Time Associated Diagnosis Comments EGFR STAT 11/20/2022 3:11 PM BOOK STORE ASSOCIATE HEMOGLOBIN A1C Routine 11/13/2022 2:20 PM BOOK STORE ASSOCIATE 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, without long-term current use of insulin (HCC) HEPATITIS C RNA, QUANTITATIVE, PCR Routine 05/08/2022 10:08 AM CDT Need for hepatitis C screening test LIPID PANEL Routine 04/17/2022 9:43 AM CDT Coronary artery disease involving [place] coronary artery of [place] heart without angina pectoris ALBUMIN CREATININE RATIO, URINE Routine 04/17/2022 9:43 AM CDT 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, without long-term current use of insulin (HCC) OCCULT BLOOD, FECAL (FIT) Routine 11/22/2017 11:15 AM BOOK STORE ASSOCIATE from Last 3 Months or Most Recently Relevant to Health Maintenance Results * eGFR (11/20/2022 3:11 PM BOOK STORE ASSOCIATE) Pathologist [facility] eGFR 95 mL/min/1. 73 m2 [facility] Comment: Interpretive Data Reference Interval Normal >/= 90 mL/min/1.73m2 Mildly decreased* 60 - 89 mL/min/1.73m2 Mildly to moderately decreased 45 - 59 mL/min/1.73m2 Moderately to severely decreased 30 - 44 mL/min/1.73m2 Severely decreased 15 - 29 mL/min/1.73m2 Kidney Failure < 15 mL/min/1.73m2 *Relative to young adult level Estimated glomerular filtration rate is determined by the 2020 CKD-EPI equation recommended by the National Kidney Foundation (A Unifying Approach to GFR Estimation: Recommendations of the NKF-ASK Task Force on Reassessing the Inclusion of Race in Diagnosing Kidney Disease, JASN 202). The CKD-EPI equation should not be used for patients with unstable renal function and has not been validated in children and those over 70. Current interpretive data was last reviewed 2021. Blood 11/20/2022 3:11 PM BOOK STORE ASSOCIATE 11/20/2022 3:16 PM BOOK STORE ASSOCIATE us Abrahma Coello MD LAB BLOOD ORDERABLES Fi nal Result [facility] [address] [place] [address] * (ABNORMAL) Hemoglobin A1c (11/13/2022 2:20 PM BOOK STORE ASSOCIATE) [facility] Hgb A1C 8.6(H) 4.0 - 5.6 % [facility] Estimated Average Glucose 200 mg/dL [facility] Comment: The ADA recommends reporting an estimated Average Glucose (eAG) with all Hemoglobin A1c results using the equation derived from a study of 507 normal and diabetic adults. Minority populations were underrepresented and children were not included. (Diabetes Care 31:2447-0635, 2008). The eAG is not equivalent to a fasting glucose. Blood 11/13/2022 2:20 PM BOOK STORE ASSOCIATE 11/13/2022 2:41 PM BOOK STORE ASSOCIATE Campbell Bullard Dear DO LAB BLOOD ORDERABLES Fin al Result Performing Organization Address [facility] Phone Number [facility] [address] [place] [address] * Hepatitis C (HCV) RNA PCR, quantitative (05/08/2022 10:08 AM CDT) [facility] HCV RNA IU/mL HCV Not Detected IU/mL [facility] - 01 HCV RNA log IU/mL CANCELED log10 IU/mL [facility] - 01 Comment: Unable to calculate result since non-numeric result obtained for component test. Result canceled by the ancillary. Test information Comment [facility] - 01 Comment:The quantitative ran ge of this assay is 15 IU/mL to 100 million IU/mL. HCV genotype CANCELED [facility] - 01 Comment: Not indicated Result canceled by the ancillary. Blood specimen (specimen) 05/08/2022 10:08 AM CDT 05/08/2022 Narrative [facility] - 05/10/2022 8:17 AM CDT Performed at: [address] [place] [id number] Supply Analyst: Jamar Cooper MD, Phone: [phone] Campbell Bullard Dear DO LAB MICROBIOLOGY - GENER AL ORDERABLES Edited Result - Final [facility] * (ABNORMAL) Albumin Creatinine Ratio, Urine (04/17/2022 9:43 AM CDT) Creatinine ur 54.0 Not Estab. mg/dL [facility] - 01 Microalbumin, ur 35.2 Not Estab. ug/mL [facility] - 01 Microalbumin/cre at ratio 65(H) 0 - 29 mg/g creat [facility] - 01 Comment: Normal: 0 - 29 Moderately increased: 30 - 300 Severely increased: >300 Urine 04/17/2022 9:43 AM CDT 04/17/2022 Narrative [facility] - 04/18/2022 10:10 AM CDT Performed at: [address] [employer], [place] [id number] Supply Analyst: Thad Peacock PhD, Phone: [phone] Campbell Bullard Dear DO LAB URINE ORDERABLES Fin al Result [facility] * Lipid panel (04/17/2022 9:43 AM CDT) Cholesterol 108 100 - 199 mg/dL [facility] - 01 Triglycerides 81 0 - 149 mg/dL [facility] - 01 HDL Cholesterol 42 >39 mg/dL [facility] - 01 VLDL 16 5 - 40 mg/dL [facility] - 01 LDL, calculated 50 0 - 99 mg/dL [facility] - 01 Blood specimen (specimen) 04/17/2022 9:43 AM CDT 04/17/2022 Narrative [facility] - 04/18/2022 7:10 AM CDT Performed at: [address] [place] [id number] Supply Analyst: Thad Peacock PhD, Phone: [phone] Campbell Bullard Dear DO LAB BLOOD ORDERABLES Fin al Result [facility] - 01 * Occult blood, fecal non neoplasm screening (11/22/2017 11:15 AM BOOK STORE ASSOCIATE) Collection date , feces [id number] [facility] Collection time 1, feces 1,115 [facility] Occult blood, fecal Negative Negative [facility] Stool 11/22/2017 11:1 5 AM BOOK STORE ASSOCIATE 11/22/2017 1:19 PM BOOK STORE ASSOCIATE Narrative [facility] - 11/22/2017 2:38 PM BOOK STORE ASSOCIATE Hakeem Muro DO LAB BODY FLUIDS AND STOOLS ORDERABLES Final Result Performing Organization Address City/[facility]/ZIP Co de Phone Number [facility] [address] [facility] Department [place] [address] from Last 3 Months or Most Recently Relevant to Health Maintenance Insurance [employer] [facility] DUAL COMPLETE [id number] [employer]PA [facility] MEDICARE ADVANTAGE Care Teams Pipe Recovery Specialist Relationship Specialty Start Date End Date Dear, Campbell Bullard DO PCP - General Family Medicine 04/13/22 No, Physician 12/21/16
--- OUTSIDE RECORDS SUMMARY | 2025-01-15 04:24 | XMS_ITS | Clinical Summary ---
Author Organization [facility] er Address [address] [place] [address] Care Team Providers Care Bid Writer Name Role Phone No, Physician Unavailable Dear, [...] 08/06/2022 Assessment & Plan (08/06/2022 12:13 PM MANAGER TALENT): Chronic, worsening - Refer to vascular surgery [...] 04/17/2022 Assessment & Plan (11/13/2022 2:04 PM MANAGER TALENT): Chronic, R anterior tibial (12/12); unprovoked per [...] surgery Assessment & Plan (08/06/2022 12:10 PM MANAGER TALENT): Chronic, R anterior tibial (12/12); unprovoked per [...] 04/17/2022 Assessment & Plan (08/06/2022 12:14 PM MANAGER TALENT): Chronic Complications: CAD, HTN, Neuropathy A1c: 8.0 [...] 04/17/2022 Assessment & Plan (08/06/2022 12:20 PM MANAGER TALENT): Chronic, controlled - lisinopril 2.5mg Assessment & [...] omeprazole 20mg Coronary artery disease invo lving tangirnaq coronary artery of tangirnaq heart without angina pectoris 04/17/2022 Assessment & [...] Unspecified 12/08/2000 Td, adsorbed 02/24/1998 Tdap 06/03/2012 Surgical History Surgery Date Site/Laterality Comments KNEE ARTHROSCOPY right & left HAND SURGERY left Medical History Medical History Date Comments Hypertension Diabetes mellitus (HCC) Bipolar 1 disorder (HCC) Coronary artery disease Kidney stones Family History Medical History Relation Name Comments Diabetes Father Hypertension Father Leukemia Father Heart failure Mother Hyperlipidemia Mother Hypertension Mother Relation Name Status Comments Father Mother Social History Tobacco Use Types Packs/Day Years [...] on file Sexual Orientation Not on file Obstetrics History Last Filed Vital Signs Vital Sign Reading Time Taken Comments Blood Pressure 137/63 11/20/2022 4:30 PM MANAGER TALENT Pulse 65 11/20/2022 4:55 PM MANAGER TALENT Temperature 36 C (96.8 F) 11/20/2022 10:41 AM MANAGER TALENT Respiratory Rate 18 11/20/2022 10:41 AM MANAGER TALENT Oxygen Saturation 100% 11/20/2022 4:55 PM MANAGER TALENT Inhaled Oxygen Concentration - - Weight 104.8 kg (231 lb) 11/20/2022 10:41 AM MANAGER TALENT Height 177.8 cm (5' 10 ) 11/13/2022 1:42 PM MANAGER TALENT Body Mass Index 33.15 11/13/2022 1:42 PM MANAGER TALENT Plan of Treatment Health Maintenance Due Date Last Done Comments Dilated Eye Exam 1945 Hepatitis B Screening 1963 Zoster Vaccine (1 of 2) 1995 DTaP/Tdap/Td Vaccine (2 - Td or Tdap) 06/03/2022 06/03/2012, 12/08/2000, 02/24/1998 Albumin Creatinine Ratio, Urine 04/17/2023 Depression Screening 04/17/2023 04/17/2022 Fall Risk Assessment 04/17/2023 04/17/2022 Foot Exam 04/17/2023 04/17/2022 Lipid Panel 04/17/2023 04/17/2022 Well Visit 65+ 04/17/2023 04/17/2022 Hemoglobin A1C 05/13/2023 11/13/2022, 03/24, 02/11/2022, Additional history exists eGFR 11/20/2023 11/20/2022, 11/21, 01/06/2019, Additional history exists Influenza Vaccine (Season Ended) 2025 06/23/2022, 06/23/2021, 06/23/2020, Additional history exists Pneumococcal vaccine 65+ Completed 017, 10/03/2016, 10/03/2016, Additional history exists Colon Cancer Screening-FIT Discontinued 11/22/2017 Colon Cancer Screening-FOBT Discontinued 11/22/2017 Colorectal Cancer Screening Discontinued Hepatitis C Screening Completed 05/08/2022, 022 Colon Cancer Screening-CT Colonography Discontinued Colon Cancer Screening-Colonoscopy Discontinued Colon Cancer Screening-DNA Stool Discontinued Colon Cancer Screening-Sigmoidoscopy Discontinued Procedures Procedure Name Priority Date/Time Associated Diagnosis Comments EGFR STAT 11/20/2022 3:11 PM MANAGER TALENT HEMOGLOBIN A1C Routine 11/13/2022 2:20 PM MANAGER TALENT 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, without long-term current use of insulin (HCC) HEPATITIS C RNA, QUANTITATIVE, PCR Routine 05/08/2022 10:08 AM CDT Need for hepatitis C screening test LIPID PANEL Routine 04/17/2022 9:43 AM CDT Coronary artery disease involving tangirnaq coronary artery of tangirnaq heart without angina pectoris ALBUMIN CREATININE RATIO, URINE Routine 04/17/2022 9:43 AM CDT 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, without long-term current use of insulin (HCC) OCCULT BLOOD, FECAL (FIT) Routine 11/22/2017 11:15 AM MANAGER TALENT from Last 3 Months or Most Recently Relevant to Health Maintenance Results * eGFR (11/20/2022 3:11 PM MANAGER TALENT) eGFR 95 mL/min/1. 73 m2 [facility] Comment: Interpretive Data Reference Interval Normal >/= [...] of Race in Diagnosing Kidney Disease, JASN 2020). The CKD-EPI equation should not be used for patients with unstable renal function and has not been validated in children and those over 70. Current interpretive data was last reviewed 2021. Blood 11/20/2022 3:11 PM MANAGER TALENT 11/20/2022 3:16 PM MANAGER TALENT us Abraham Coello MD LAB BLOOD ORDERABLES Fi nal Result [facility] [address] [facility] Department [place] [address] * (ABNORMAL) Hemoglobin A1c (11/13/2022 2:20 PM MANAGER TALENT) Hgb A1C 8.6(H) 4.0 - 5.6 % [facility] Estimated Average Glucose 200 mg/dL [facility] Comment: The ADA recommends reporting an estimated Average Glucose (eAG) with all Hemoglobin A1c results using the equation derived from a study of 507 normal and diabetic adults. Minority populations were underrepresented and children were not included. (Diabetes Care 31:4517-7223, 2008). The eAG is not equivalent to a fasting glucose. Blood 11/13/2022 2:20 PM MANAGER TALENT 11/13/2022 2:41 PM MANAGER TALENT Campbell Bullard Dear DO LAB BLOOD ORDERABLES Fin al Result Performing Organization Address City/[facility]/ZIP Co de Phone Number [facility] [address] [facility] [place] [address] * Hepatitis C (HCV) RNA PCR, quantitative (05/08/2022 10:08 AM CDT) Pathologist [facility] HCV RNA IU/mL HCV Not Detected [...] - 05/10/2022 8:17 AM CDT Performed at: 01 - [address] [id number] Workers Compensation Administrator: Jamar Cooper MD, Phone: [phone] Campbell Bullard Dear DO LAB MICROBIOLOGY - GENER AL ORDERABLES Edited Result - Final [facility] - 01 * (ABNORMAL) Albumin Creatinine Ratio, Urine (04/17/2022 [...] - 04/18/2022 10:10 AM CDT Performed at: [address] [id number] Workers Compensation Administrator: Thad Peacock PhD, Phone: [phone] Campbell Bullard Dear DO LAB URINE ORDERABLES Fin al Result Performing Organization Address [facility] de Phone Number [facility] - 01 * Lipid panel (04/17/2022 9:43 AM CDT) Pathologist [facility] Cholesterol 108 100 - 199 mg/dL [facility] - 01 Triglycerides 81 0 - 149 mg/dL [facility] - 01 HDL Cholesterol 42 >39 mg/dL [facility] - 01 VLDL 16 5 - 40 mg/dL [facility] - 01 LDL, calculated 50 0 - 99 mg/dL [facility] - 01 Blood specimen (specimen) 04/17/2022 9:43 AM CDT 04/17/2022 Narrative [facility] - 04/18/2022 7:10 AM CDT Performed at: [address] [id number] Workers Compensation Administrator: Thad Peacock PhD, Phone: [phone] Campbell Bullard Dear DO LAB BLOOD ORDERABLES Fin al Result Performing Organization Address [facility] de Phone Number [facility] - 01 * Occult blood, fecal non neoplasm screening (11/22/2017 11:15 AM MANAGER TALENT) [facility] Collection date , [id number] [facility] Collection time 1, feces 1,115 [facility] Occult blood, fecal Negative Negative [facility] Stool 11/22/2017 11:1 5 AM MANAGER TALENT 11/22/2017 1:19 PM MANAGER TALENT Narrative [facility] - 11/22/2017 2:38 PM MANAGER TALENT Hakeem Muro DO LAB BODY FLUIDS AND STOOLS ORDERABLES Final Result [facility] [address] [facility] Department [place] [address] from Last 3 Months or Most Recently Relevant to Health Maintenance Insurance [facility] DUAL COMPLETE [id number] [place] [address] [facility]IC[facility]VANTAGE Care Teams Bid Writer Relationship Specialty Start Date End Date Dear, Campbell Bullard DO PCP - General Family Medicine 04/13/22 No, Physician 12/21/16
--- OUTSIDE RECORDS SUMMARY | 2025-01-15 04:24 | XMS_ITS | Encounter Summary ---
Author Organization [facility] Address 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
--- OUTSIDE RECORDS SUMMARY | 2025-01-15 04:24 | XMS_ITS | CONTINUITY OF CARE DOCUMENT ---
Author Name monica anderson Address Unknown Organization [facility] Address [address] [address] [facility] [address] [place] [address] Phone [phone] Care Team Providers Care Tack Maker Name Role Phone Jessy Sofia MD Unavailable SANJUANITA ERNST MD Unavailable [phone] SANJUANITA ERNST MD Unavailable [phone] PROBLEMS Condition Status Date Provider Notes S/P Dual chamb PCM - Biotron ik ( MRI Safe) active Zakiya Banda DM - type 2 active Jessy Sofia MD HTN essential active Jessy Sofia MD Osteoarthritis active Jessy Sofia MD Hypercoagulable state active Jessy hunter MD 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 Jessy Sofia MD DVT active Jessy Sofia MD Syncope active Jessy Sofia MD Hematuria active Jessy Sofia MD Bradycardia active Campbell Soto Bifascicular block active Campbell Soto ENCOUNTERS Date Type Provider Location Encounter Diag nosis - In-person encounter Office Visit Braxton Gee MD [facility] - In-person encounter Office Visit Braxton Gee MD [facility] - In-person encounter Office Visit Braxton Gee MD [facility] BradycardiaBifascicular block - In-person encounter Office Visit Jessy Sofia MD [facility] SyncopeHematuria - In-person encounter Office Visit Jessy Sofia MD [facility] DM - type 2HTN essentialOsteoarthritisHypercoagulable stateOld myocardial infarctionDVT VITAL SIGNS Date Observation Value Provider Body Mass Index (Ratio) 27.70 kg/m2 Jacek Gee MD blood pressure, diastolic 75 mm[Hg] [facility], systolic 153 mm[Hg] [facility] oxygen saturation, oximetry 98 % [facility] pulse rate 69 /min [facility] respiratory rate E&M 12 /min [facility] blood pressure, cuff size regular [facility] weight E&M 210 [lb_av] [facility] height E&M 73 [in_i] [facility] Body Mass Index (Ratio) 27.44 kg/m2 Jacek Gee MD blood pressure, diastolic 76 mm[Hg] Lore [facility] blood pressure, systolic 150 mm[Hg] ameena [facility] oxygen saturation, oximetry 94 % [facility] pulse rate 74 /min [facility] respiratory rate E&M 12 /min [facility] weight E&M 208 [lb_av] [facility] height E&M 73 [in_i] [facility] blood pressure, cuff size regular An [facility] Body Mass Index (Ratio) 27.97 kg/m2 Karel Soto oxygen saturation, oximetry 98 % Madison [facility] pulse rate 57 /min Madison Durant lder blood pressure, diastolic 64 mm[Hg] Ke azam [place] blood pressure, systolic 135 mm[Hg] Dangelo [place] weight E&M 212 [lb_av] Madison Durant er height E&M 73 [in_i] Madison Durant [facility] Body Mass Index (Ratio) 26.65 kg/m2 Ria Sofia MD blood pressure, diastolic 65 mm[Hg] L[facility] blood pressure, systolic 120 mm[Hg] Macy mcguire [place] oxygen saturation, oximetry 98 % [facility] pulse rate 68 /min [facility] respiratory rate E&M 14 /min [facility] weight E&M 202 [lb_av] [facility] height E&M 73 [in_i] [facility] blood pressure, cuff size regular An [facility] Body Mass Index (Ratio) 29.42 kg/m2 Karel as Charles blood pressure, diastolic 75 mm[Hg] Li nkLogic blood pressure, systolic 130 mm[Hg] Danielle kLogic blood pressure, cuff size regular Fa [facility] blood pressure, diastolic 75 mm[Hg] Fa ith Tapia blood pressure, systolic 130 mm[Hg] Addison th Tapia pulse rate 86 /min Elisa Tapia oxygen saturation, oximetry 96 % Elisa Tapia respiratory rate E&M 16 /min Elisa Gabe iller weight E&M 223 [lb_av] Elisa Tapia height E&M 73 [in_i] Elisa Tapia ALLERGIES Allergy Name Onset Date Reaction Criticality Status PENICILLIN High Criticality active MORPHINE High Criticality active REASON FOR REFERRAL Date Service [Description: Dr. Armida acevedo] HISTORY OF MEDICATION USE Medication Status Instructions Dates Provider Indications Com ments clindamycin HCl 300 mg capsule active Take 1 capsule by mouth three times a day 3 Braxton Gee MD clindamycin HCl 300 mg capsule completed - 3 Braxton Gee MD tramadol 50 mg tablet active 1 tablet every six hours for pain 3 Braxton Gee MD Eliquis 5 mg tablet active Jessy Sofia MD Trulicity 1.5 mg/0.5 mL pen injector active Jessy Sofia MD omeprazole 20 mg capsule,delayed release(DR/EC) active Jessy Sofia MD Synjardy XR 5-1,000 mg tablet, IR - ER, biphasic 24hr active Jessy Sofia MD Trulicity 3 mg/0.5 mL pen injector completed - 5 Jessy Sofia MD Trulicity 1.5 mg/0.5 mL pen injector completed - 5 Jessy Sofia MD Myrbetriq 50 mg tablet extended release 24 hr active Jessy Sofia MD diclofenac sodium 1% gel active Jessy Sofia MD tamsulosin 0.4 mg capsule active Jessy Sofia MD sildenafil (pulm.hypertensi on) 20 mg tablet active TAKE 1 TO 5 TABLETS BY MOUTH ONCE DAILY NEEDED Jessy Sofia MD prednisone 20 mg tablet active Jessy Sofia MD ibuprofen 800 mg tablet active Jessy Sofia MD lisinopril 2.5 mg tablet active Jessy Sofia MD metformin 500 mg tablet extended release 24 hr active Jessy Sofia MD neomycin-polymyx in B-dexameth 3.5mg/mL-10,000 unit/mL-0.1 % drops,suspension active Jessy Sofia MD atorvastatin 80 mg tablet active Jessy Sofia MD SOCIAL HISTORY Date Observation Value Provider pacemaker surgery, 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 y,Hx of Braxton Gee MD smoking status Former smoker Campbell calderon smoking status Former smoker Jessy carrasquillo MD smoking status Former smoker Jessy carrasquillo MD FUNCTIONAL STATUS Date Observation Value Provider HRA, CV Assess/Plan, Angina (inactive) Management Plan continue current therapy Jessy Sofia MD INSURANCE PROVIDERS Payer name Policy type / Coverage type [place] red democrat ID [employer] MEDICARE ADVANTAGE ST 0 003 (HMO POS) Medicare [id number] [facility] Medicaid 4 [id number] ADVANCE DIRECTIVES Name Date DISCUSSED - NO DECISION MADE TREATMENT PLAN Date Name Performer Electrophysiology Braxton simmons MD Electrophysiology: H is updated medication list for this problem includes: Lisinopril 2.5 Mg Tablet (Lisinopril) Braxton Gee MD Electrophysiology Braxton simmons MD Electrophysiology Braxton simmons MD Electrophysiology: H is updated medication list for this problem includes: Lisinopril 2.5 Mg Tablet (Lisinopril) Braxton Gee MD Electrophysiology: H is updated medication list for this problem includes: Prednisone 20 Mg Tablet (Prednisone) Lisinopril 2.5 Mg Tablet (Lisinopril) Braxton Gee MD Electrophysiology: H is updated medication list for this problem includes: Lisinopril 2.5 Mg Tablet (Lisinopril) Braxton Gee MD Electrophysiology:In cision is healing well. No swelling or infection. H is updated medication list for this problem includes: Lisinopril 2.5 Mg Tablet (Lisinopril) Braxton Gee MD Electrophysiology: O bairon Jhaveri. Had hematuria. Was evaluated at [facility] and has chronic acosta. S ays that he was told he has sticky blood in the past, currently on eliquis T his visit has been a part of the consistent, comprehensive, and ongoing management of the chronic medical condition(s) listed above for the patient. Campbell Soto Electrophysiology:As per above, will arrange for BIv device Campbell Charles Electrophysiology:No t on any AV kaden blocking agents H e had a monitor that showed slowest rate is 53 bpm W ill arrange for BIV device implant W Ill have him see Kalvaitis as I suspect he will need a dual chamber PPM as he has prolonged OH and prolonged QRS and 2 syncopal events. C brigida Tele for 1 week. Not on AV kaden blockage agents such as BB or CCB Campbell Charles Electrophysiology:No t appropriate candidate for CCB or BB due to h/o syncope His updated medication list for this problem includes: Lisinopril 2.5 Mg Tablet (Lisinopril) BP today: 135/64 P rior BP: 120/65 (08/06/2024) Campbell Chamorroty Electrophysiology: O n Eliquis. Had hematuria. Was evaluated at [facility] and has chronic acosta. Campbell Soto Cardiology: H is updated medication list for this problem includes: Trulicity 1.5 Mg/0.5 Ml Pen Injector (Dulaglutide) Synjardy Xr 5-1,000 Mg Tablet, Ir - Er, Biphasic 24hr (Empagliflozin-metformin) Lisinopril 2.5 Mg Tablet (Lisinopril) Metformin 500 Mg Tablet Extended Release 24 Hr (Metformin) Jessy Sofia MD Cardiology: a bnormal EKG suggestive of old inferior wall; [place] , had stents in [id number], [place] in , done at [place] on asa 81mg H is updated medication list for this problem includes: Lisinopril 2.5 Mg Tablet (Lisinopril) Jessy Sofia MD Cardiology:On Eliqui s. Had hematuria. Was evaluated at [facility] and has chronic acosta. S ays that he was told he has sticky blood in the past, currently on eliquis T his visit has been a part of the consistent, comprehensive, and ongoing management of the chronic medical condition(s) listed above for the patient. Jessy Sofia MD Cardiology:On Eliqui s. Had hematuria. Was evaluated at [facility] and has chronic acosta. Jessy Sofia MD Cardiology:On Eliqui s. Had hematuria. Was evaluated at [facility] and has chronic acosta. Jessy Sofia MD Cardiology:Arrange f or RPM D iscussion of benefits for remote patient monitoring took place. Patient gives consent for remote monitoring of physiologic parameters including, but not limited to, weight, blood pressure, pulse oximetry, respiratory flow rate. T his visit has been a part of the consistent, comprehensive, and ongoing management of the chronic medical condition(s) listed above for the patient. BP today: 120/65 P rior BP: 130/75 (09/06/2023) His updated medication list for this problem includes: Lisinopril 2.5 Mg Tablet (Lisinopril) Jessy Sofia MD Cardiology:WIll have him see Marlen as I suspect he will need a dual chamber PPM as he has prolonged OH and prolonged QRS and 2 syncopal events. C brigida Tele for 1 week. Not on AV kaden blockage agents such as BB or CCB Jessy Sofia MD Cardiology: H is updated medication list for this problem includes: Lisinopril 2.5 Mg Tablet (Lisinopril) BP today: 130/75 Jessy Sofia MD Cardiology:takes prednsione and diclofenac Jessy Sofia MD Cardiology:Says that he was told he has sticky blood in the past, currently on mihai Sofia MD Cardiology:abnormal EKG suggestive of old inferior wall; [place] , [place] stents in [id number], [place] in , done at [place] on asa 81mg H is updated medication list for this problem includes: Lisinopril 2.5 Mg Tablet (Lisinopril) Jessy Sofia MD Cardiology:recalls h aving DVT in RLE , currently on mihai Sofia MD Date Name Dr. Gee EKG PARTIAL THROMBOPLAST IN TIME, ACTIVATED URINALYSIS, COMPLETE W/REFLEX TO CULTURE COMPREHENSIVE METABO LIC PANEL, W/EGFR PROTHROMBIN TIME WIT H INR LIPID PANEL CBC (INCLUDES DIFF/P LT) BASIC METABOLIC PANE L W/EGFR Monitor - Telemetry (Mobile Cardiac) Venous Doppler Bilat eral LE Carotid Duplex Bilat eral Complete Echo HISTORY OF PROCEDURES Procedure Date Procedure Name Provider Procedure Notes S tatus Complex e/m visit ad d on Braxton Gee MD completed Complex e/m visit ad d on Braxton Gee MD completed Complex e/m visit ad d on Jessy Sofia MD completed
--- OUTSIDE RECORDS SUMMARY | 2025-01-15 04:24 | XMS_ITS | Data Portability ---
Author Organization [facility], Main Office Address [address] [place] [address] Care Team Providers Care Process Control Specialist Name Role Phone SAHARA LEE Primary Care Provider SAHARA LEE Referring Provider BONNIE GUTIERRES Golf Shoe Spike Assembler [phone] ANA ROSA ESTRADA Neurosurgeon [phone] FIDENCIO JOSÉ Calliope Player BETTE SOFIA Radio Interference Trouble Shooter GABI ROBBINS Urologist Assessment Encounter Date Assessment Date Assessment LastModified by Organization Details LastModified Time 08/12/2024 08/12/2024 06/04/2024: PSA 1.17 A1C 7.4 Urine micro alb 306 Hep panel/GGT: WNL Gluc 138, BUN 31, Cr 1.35, GFR 51, ALP 139 H/H 11.6/36.9 Not available 08/12/2024 12:12:31 10/14/2024 10/14/2024 06/04/2024: PSA 1.17 A1C 7.4 Urine micro alb 306 Hep panel/GGT: WNL Gluc 138, BUN 31, Cr 1.35, GFR 51, ALP 139 H/H 11.6/36.9 09/11/2024: A1C 6.9 H/H 11.6/37.2 Gluc 132, BUN 27 Urine micro alb 338 Not available 10/14/2024 14:51:25 12/29/2024 12/29/2024 06/04/2024: PSA 1.17 A1C 7.4 Urine micro alb 306 Hep panel/GGT: WNL Gluc 138, BUN 31, Cr 1.35, GFR 51, ALP 139 H/H 11.6/36.9 09/11/2024: A1C 6.9 H/H 11.6/37.2 Gluc 132, BUN 27 Urine micro alb 338 [email or web address] Not available 12/29/2024 17:48:57 Plan of Treatment Reminders Order Date Submit Date Provider Last Modified By Organization Details Last Modified Time Details Appointments Any 15 2024 10:15A Gabe leigh MD Not available Not available Not available Lab glycohemo globin, total, blood 2024 025 [facility], [address], [place], [address], 12/29/2024 17:56:33 microalbu min, urine 2024 025 [facility], [address], [place], [address], 12/29/2024 17:56:33 lipid panel, serum 2024 025 [facility], [address], [place], [address], 12/29/2024 17:56:31 CBC w/ auto diff 2024 025 [facility], [address], [place], [address], 12/29/2024 17:56:31 TSH, serum or plasma 2024 025 [facility], [address], [place], [address], 12/29/2024 17:56:34 CMP, serum or plasma 2024 025 [facility], [address], [place], [address], 12/29/2024 17:56:32 glycohemo globin, total, blood 2024 025 [facility], [address], [place], [address], 10/14/2024 15:03:11 microalbu min, urine 2024 025 [facility], [address], [place], [address], 01/02/2025 08:03:52 lipid panel, serum 2024 025 [facility], [address], [place], [address], 01/02/2025 08:03:50 CBC w/ auto diff 2024 025 [facility], [address], [place], [address], 01/02/2025 08:03:54 TSH, serum or plasma 2024 025 [facility], [address], [place], [address], 01/02/2025 08:03:55 CMP, serum or plasma 2024 025 [facility], [address], [place], [address], 01/02/2025 08:03:51 glycohemo globin, total, blood 2023 024 [facility], [address], [place], [address], 09/14/2024 09:45:27 microalbu min, urine 2023 024 [facility], [address], [place], [address], 09/14/2024 09:45:27 lipid panel, serum 2023 024 [facility], [address], [place], [address], 09/12/2024 07:48:24 CBC w/ auto diff 2023 024 [facility], [address], [place], [address], 09/12/2024 07:48:27 TSH, serum or plasma 2023 024 [facility], [address], [place], [address], 09/12/2024 07:48:29 CMP, serum or plasma 2023 024 [facility], [address], [place], [address], 09/12/2024 07:48:26 Referral rheumatol ogist referral - Please call patient to schedule an appointme nt. Thank you. 2024 025 ERYN [facility] (Rheumatology ), [address] [facility], [place], [address], 01/04/2025 11:05:20 urologist referral - Please call patient to schedule an appointme nt. Thank you. 2024 025 ERYN Freeman MD, [address], [place], [address], 01/04/2025 11:10:35 nephrolog ist referral - Please call patient to schedule an appointme nt. Thank you. 2024 025 ERYN Avila MD (Nephrology, [address], [address], [place], [address], 01/04/2025 11:10:35 podiatris t referral - Please call patient to schedule an appointme nt. Thank you. 2024 025 VIDHI José DPM, [address] [facility], [address], [place], [address], 12/30/2024 18:13:32 nephrolog ist referral - Please call patient to schedule. 2024 025 [email or web address] Melvin Avila MD (Nephrology, [address], [address], [place], [address], 10/15/2024 17:38:21 podiatris t referral 2024 025 [email or web address] Fidencio José DPM, [address] [facility], [address], [place], [address], 10/15/2024 17:38:12 nephrolog ist referral - Please call patient to schedule. 2023 024 ERYN Avila MD (Nephrology, [address], [address], [place], [address], 08/13/2024 20:21:35 podiatris t referral 2023 024 [email or web address] Fidencio José DPM, [address], [address], [place], [address], 08/13/2024 19:42:08 Procedures upper endoscopy procedure (EGD) (PROC) 2023 024 [email or web address] Bonnie Gutierres MD, [address] [facility], [address], [place], [address], 08/13/2024 19:41:28 Surgeries None recorded. Imaging US, liver - Please call patient to schedule. 2024 025 [facility], [address], [address], [place], [address], 10/14/2024 15:39:31 US, liver - Please call patient to schedule. 2023 024 [email or web address] [facility], [address], [address], [place], [address], 09/21/2024 13:32:50 Medication Orders None recorded. Patient TargetsNo targets recorded. Patient Instructions Encounter Date Encounter Id Patient Instructions Last Modified By Organization Details Last Modified Time 09/02/2024 [id number] 1. We changed hi s catheter today he will come back once a month for another catheter change Not available 09/02/2024 12:29:32 10/02/2024 [id number] continue with suprapubic tube change once a month Not available 10/02/2024 13:50:10 Reason for Referral Hydraulic Modeling Engineer Referral for Pr oteinuria Please call patient to schedule. Referring Physician: Sahara Lee Internal Medicine, Encounter Date: 08/12/2024 Calliope Player Referral for Type 2 diabetes mellitus without complication Referring Physician: Sahara Lee Internal Medicine, Encounter Date: 08/12/2024 Hydraulic Modeling Engineer Referral for Pr oteinuria Please call patient to schedule. Referring Physician: Sara Mauricio Medicine, Encounter Date: 10/14/2024 Calliope Player Referral for Type 2 diabetes mellitus without complication Referring Physician: Sahara Lee Internal Medicine, Encounter Date: 10/14/2024 Hydraulic Modeling Engineer Referral for Pr oteinuria Please call patient to schedule an appointment. Thank you. Referring Physician: Sara Mauricio Medicine, Encounter Date: 12/29/2024 Calliope Player Referral for Type 2 diabetes mellitus without complication Please call patient to schedule an appointment. Thank you. Referring Physician: Sahara Lee Internal Medicine, Encounter Date: 12/29/2024 Urologist Referral for Cysti tis Please call patient to schedule an appointment. Thank you. Referring Physician: Sara Mauricio Medicine, Encounter Date: 12/29/2024 Cooker Syrup Referral for Paget's disease of pelvis Please call patient to schedule an appointment. Thank you. Referring Physician: Sara Mauricio, Encounter Date: 12/29/2024 Results Created Date Observation Date Name Description Value Unit Range Abnormal Flag Note LastModifiedBy Organization Detail LastModifiedTime 08/25/20 24 08/25/2024 imagi ng/di agnos tic resul t No observ ation record ed. [facility] [address], [place], [address], 08/25/2024 07:02:06 11/03/19 25 11/03/2024 imagi ng/di agnos tic resul t No observ ation record ed. [facility] [facility] [address], [place], [address], 11/03/2024 13:09:37 Result Notes None recorded. Problems Name Problem SNOMED Code Status Onset Date Resolution Date Notes Provider Name and Address Organization Details Recorded Time Diabetes mellitus 00385411 Active 2022 Not Available [facility] 4 05:59:13 Hyperlipid emia 27971406 Active 2022 Not Available [facility] 4 05:59:13 Essential hypertensi on 74696200 Active 2022 Not Available [facility] 4 05:59:13 Type 2 diabetes mellitus without complicati on 914548478 Active 2022 Not Available [facility] 4 05:59:13 Urinary incontinen ce 638766816 Active 2022 Not Available [facility] 4 05:59:13 Gastroesop hageal reflux disease without esophagiti s 310698313 Active 2022 Not Available [facility] 4 05:59:13 Moderate recurrent major depression 06912758 Active 2022 [facility] Available [facility] 4 05:59:13 Coronary arterioscl erosis 71493827 Active 2022 Not Available [facility] 4 05:59:13 Liver function tests outside reference range 548726027 Active 2022 Not Available [facility] 4 05:59:13 Microalbum inuria 377338383 Active 2022 Not Available [facility] 4 05:59:13 Osteoarthr itis of hip 707311802 Active 2023 Not Available [facility] 4 05:59:13 Pain in right hip joint 3926028691151 02 Active 2023 Lilia Shiva, ATC L null, [place] [facility] 4 11:07:46 Low back pain 948467553 Active 2023 Not Available [facility] 4 05:59:13 Neuropathy 849101741 Active 2023 Indigo Sandoval MA null, [place] [facility] 4 10:11:21 Chronic low back pain 721825202 Active 2023 Indigo Sandoval MA null, [place] [facility] 4 11:34:38 Pain of left hip joint 0079129129066 00 Active 2023 SARAH Quezada null, [facility] 4 10:20:52 Blood in urine 00396582 Active 2023 Indigo Sandoval MA null, [facility] 4 12:47:55 Cystitis 70701975 Active 2023 Sahara guzman MD [address], [address], [place], [address] , [facility] 4 16:14:14 Steatosis of liver 177252957 Active 2023 Sahara guzman MD [address], [address], [place], [address] , [facility] 4 09:40:39 Paget's disease-[facility] 344900294 Active 2023 Indigo Sandoval MA null, [place] [facility] 4 16:11:38 Syncope 823020576 Active 2023 Sahara guzman MD [address], [address], [place], [address] , [facility] 4 13:34:49 Anemia 445148497 Active 2023 Sahara guzman MD [address], [address], [place], [address] , [facility] 4 10:06:31 Peripheral neuropathy due to type 2 diabetes mellitus 5130658849917 Active 2023 Myron Guido DPM [address], [address], [place], [address] , [facility] 4 08:48:27 Onychomyco sis of toenails 692483735 Active 2023 Myron Guido DPM [address], [address], [place], [address] , [facility] 4 08:48:34 Chronic retention of urine 398413776 Active 2023 Gabi Robbins MD [address], [address], [place], [address] , [facility] 4 16:20:24 Proteinuri a 88986489 Active 2023 Sahara guzman MD [address], [place], [address] , [facility] 4 12:09:03 Paget's disease of pelvis 646833117 Active 2024 Sahara guzman MD [address], [place], [address] , [facility] 5 17:54:58 Notes:Some problems listed i n Documents: #[id number], #[id number], #[id number] could not be added to this patient's chart. Please review these documents and add these problems to the patient's chart manually as needed. Problem Notes None recorded. Procedures Surgical History Date Name Laterality Status Provider Name and Address Organization Details Recorded Time 09/23/19 Pacemaker completed Yin Westfall ENRIQUETAA [place] [facility] 10/14/2024 14:42:19 09/02/20 24 Cath Change completed Roseanne Cruz CMA [place] [facility] 09/02/2024 12:25:10 07/17/20 24 Nail Debridement completed Myron Guido DPM [address], [address], [place], [address], [facility] 07/20/2024 08:48:20 07/14/20 24 Transitional_Care_M anagement completed Sahara Lee MD [address], [address], [place], [address], [facility] 07/14/2024 10:59:07 07/01/20 Colonoscopy completed Yin Westfall [facility] [place] [facility] 07/14/2024 09:56:57 12/26/19 Medicare Wellness CPT Code, subsequent completed Camryn Donahue [place] [facility] 12/24/2023 13:07:44 Tonsillectomy completed Yin Westfall [facility] [place] [facility] 08/27/2023 14:48:35 Cholecystectomy completed Yin Westfall [facility] [place] [facility] 08/27/2023 14:48:41 total knee replacement completed Yin Westfall [facility] [place] [facility] 08/27/2023 14:49:12 Orthopedic Surgery completed Yin Westfall [facility] [place] [facility] 08/27/2023 14:49:39 Bladder completed Yin Westfall [facility] [place] [facility] 12/29/2024 17:22:13 Imaging Results Imaging Date Name Status LastModified by Organiz ation Details LastModified Time 08/25/2024 imaging/diagn ostic result active [facility] [address], [place], [address], 08/25/2024 07:02:06 11/03/2024 imaging/diagn ostic result active [facility] [address], [place], [address], 11/03/2024 13:09:37 Procedure Notes None recorded. Medical Equipment None Reported. Allergies Allergen ID Allergen Name Allergen Category Reaction Reaction Severity Criticality Documentation Date Start Date Code Code System Note Provider Name and Address Organization Details Recorded Time 34995 morphine medicatio n Not available Not available Not available 06/04/2024 7052 RxNorm ROGER Abdi [facility] 4 09:55:19 42007 aspirin medicatio n Not available Not available Not available 06/04/2024 1191 RxNorm ROGER Abdi [facility] 4 09:55:37 68599 amitripty line medicatio n Not available Not available Not available 06/04/2024 704 RxNorm ROGER Abdi, [facility] 4 09:55:45 Medications Name Sig Start Date Stop Date Status Note LastModified by Organization Details LastModified Time atorvastati n 80 mg tablet Take 0.5 tablets every day by oral route. 2024 active Not Available Not Available Not Avai lable doxycycline hyclate 100 mg capsule TAKE 1 CAPSULE BY MOUTH TWICE DAILY FOR 7 DAYS 08/27 completed Not Available Not Available Not Available azithromyci n 250 mg tablet TAKE 2 TABLETS BY MOUTH TODAY, THEN TAKE 1 TABLET DAILY FOR 4 DAYS DIRECTED 07/14 completed Not Available Not Available Not Available ibuprofen 800 mg tablet TAKE 1 TABLET BY MOUTH EVERY 8 HOURS WITH FOOD NEEDED 08/27 completed Not Available Not Available Not Available hydrocodone 5 mg-acetamin ophen 325 mg tablet TAKE 1-2 TABLET BY MOUTH EVERY 6 HOURS NEEDED FOR PAIN 06/04 completed Not Available Not Available Not Available prednisone 20 mg tablet TAKE 2 TABLETS BY MOUTH ONCE DAILY WITH FOOD FOR 5 DAYS 08/27 completed Not Available Not Available Not Available sulfamethox azole 800 mg-trimetho prim 160 mg tablet TAKE 1 TABLET BY MOUTH EVERY 12 HOURS FOR 7 DAYS 08/12 completed Not Available Not Available Not Available peg-electro lyte solution 420 gram oral solution DRINK 1/2 AT 5PM ON 06/30 AND THE OTHER 1/2 AT 5AM ON 07/01 completed Not Available Not Available Not Available aspirin 81 mg tablet,suzi yed release Take 1 tablet every day by oral route. active Not Available Not Available No t Available tramadol 50 mg tablet TAKE 1 TABLET BY MOUTH NEEDED FOR 5 DAYS 12/25 completed Not Available Not Available Not Available warfarin 3 mg tablet TAKE 1 TABLET BY MOUTH ONCE DAILY 08/27 completed Not Available Not Available Not Available oxycodone-a cetaminophe n 5 mg-325 mg tablet 12/25 completed Not Available Not Available Not Available methocarbam ol 750 mg tablet TAKE 1 TABLET BY MOUTH 3 TIMES DAILY NEEDED 06/04 completed Not Available Not Available Not Available tamsulosin 0.4 mg capsule TAKE 1 CAPSULE BY MOUTH DAILY 2024 active Not Available Not Available Not Avai lable linezolid 600 mg tablet TAKE 1 TABLET BY MOUTH EVERY 12 HOURS FOR 10 DAYS 06/04 completed Not Available Not Available Not Available cephalexin 500 mg capsule 10/14 completed Not Available Not Available Not Available ferrous sulfate 325 mg (65 mg iron) tablet TAKE 1 TABLET BY MOUTH EVERY DAY active Not Available Not Available No t Available neomycin-po lymyxin-dex ameth 3.5 mg/mL-10,00 0 unit/mL-0.1 % eye drops INSTILL 1 DROP INTO RIGHT EYE THREE TIMES DAILY 08/27 completed Not Available Not Available Not Available gabapentin 300 mg capsule TAKE 1 CAPSULE BY MOUTH THREE TIMES A DAY active Not Available Not Available No t Available omeprazole 20 mg capsule,del ayed release Take 1 capsule twice a day by oral route. active Not Available Not Available No t Available diclofenac sodium 75 mg tablet,suzi yed release TAKE 1 TABLET BY MOUTH TWICE A DAY 12/25 completed Not Available Not Available Not Available bisacodyl 5 mg tablet,suzi yed release TAKE 6 TABLETS BY MOUTH AT 8AM ON 06/30 completed Not Available Not Available Not Available methylpredn isolone 4 mg tablets in a dose pack TAKE BY MOUTH DIRECTED ON INSIDE OF PACKAGE 08/27 completed Not Available Not Available Not Available oxybutynin chloride 5 mg tablet TAKE 1 TABLET BY MOUTH EVERY 12 HOURS NEEDED FOR URINARY FREQUENCY 07/14 completed Not Available Not Available Not Available cefdinir 300 mg capsule TAKE 1 CAPSULE BY MOUTH TWICE A DAY X3 DAYS 07/14 completed Not Available Not Available Not Available metformin ER 500 mg tablet,exte nded release 24 hr TAKE 1 TABLET BY MOUTH TWICE DAILY active Not Available Not Available No t Available lisinopril 2.5 mg tablet TAKE 1 TABLET BY MOUTH DAILY active Not Available Not Available No t Available naproxen 500 mg tablet 12/25 completed Not Available Not Available Not Available enoxaparin 80 mg/0.8 mL subcutaneou s syringe INJECT THE CONTENTS OF 1 PEN UNDER THE SKIN TWICE DAILY 07/14 completed Not Available Not Available Not Available nitrofurant oin monohydrate /macrocryst als 100 mg capsule TAKE 1 CAPSULE BY MOUTH EVERY 12 HOURS FOR 10 DAYS 12/25 completed Not Available Not Available Not Available sildenafil (pulmonary hypertensio n) 20 mg tablet TAKE 1 TO 5 TABLETS BY MOUTH ONCE DAILY NEEDED 08/27 completed Not Available Not Available Not Available diclofenac 1 % topical gel APPLY 4 GRAMS TOPICALLY 4 TIMES DAILY NEEDED FOR LEG DISCOMFOR T 08/27 completed Not Available Not Available Not Available Myrbetriq 50 mg tablet,exte nded release Take 1 tablet every day by oral route. 2024 active Not Available Not Available Not Avai lable apixaban 5 mg tablet Take 0.5 tablets twice a day by oral route. active Not Available Not Available No t Available Trulicity 1.5 mg/0.5 mL subcutaneou s pen injector INJECT THE CONTENTS OF ONE PEN SUBCUTANE OUSLY WEEKLY DIRECTED 2024 active Not Available Not Available Not Avai lable Synjardy XR 5 mg-1,000 mg tablet, extended release TAKE 1 TABLET BY MOUTH TWICE DAILY 12/25 completed Not Available Not Available Not Available Trulicity 3 mg/0.5 mL subcutaneou s pen injector INJECT 3 MG UNDER THE SKIN ONCE A WEEK 08/27 completed Not Available Not Available Not Available Vitals Date Recorded Body height Body mass index (BMI) Body weight Body temperature Heart rate Systolic blood pressure Diastolic blood pressure Provider Name and Address Organization Details Last Updated DateTime 4 185.42 cm 26.7 kg/m2 13168.6 6 g 97.7 [degF] 78 /min 100 mm[Hg] 54 mm[Hg] Yin Westfall [employer] [facility] 4 11:46:27 Date Recorded Body height Heart rate Body temperature Body mass index (BMI) Body weight Oxygen saturation Oxygen saturation in Arterial blood by Pulse oximetry Systolic blood pressure Diastolic blood pressure Provider Name and Address Organization Details Last Updated DateTime 4 185.42 cm 80 /min 97 [degF] 27.7 kg/m2 00600.4 g 94 % 94 % 147 mm[Hg] 65 mm[Hg] Roseanne Cruz 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 [employer] [facility] 4 10:39:12 Date Recorded Body height Provider Name an d Address Organization Details Last Updated DateTime 10/02/2024 185.42 cm oRseanne Cruz 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 [employer] [facility] 10/02/2024 11:08:37 Date Recorded Body height Body mass index (BMI) Body weight Body temperature Heart rate Systolic blood pressure Diastolic blood pressure Provider Name and Address Organization Details Last Updated DateTime 5 185.42 cm 27.2 kg/m2 36980.0 3 g 97.9 [degF] 78 /min 120 mm[Hg] 60 mm[Hg] Yin Westfall [employer] [facility] 5 14:48:27 Date Recorded Body height Body mass index (BMI) Body weight Body temperature Heart rate Systolic blood pressure Diastolic blood pressure Provider Name and Address Organization Details Last Updated DateTime 5 185.42 cm 29 kg/m2 18659.3 2 g 97.2 [degF] 78 /min 136 mm[Hg] 62 mm[Hg] Yin Westfall [employer] [place] [employer] [facility] 5 17:24:18 Social History Question Answer Notes LastModified by Organization Details LastModified Time Tobacco Smoking Status Former Smoker quit age 41 [facility] 10/14/2024 14:44:47 Do You Have An Advance Directive? Yes [email or web address] Information not available 08/27/2023 What Is Your Level Of Alcohol Consumption? None Information not available 08/27/2023 Are You Blind Or Do You Have Difficulty Seeing? No Information not available 08/27/2023 What Is Your Level Of Caffeine Consumption? Moderate Information not available 08/27/2023 In The 14 Days Before Symptom Onset, Have You Had Close Contact With A Laboratory-conf irmed COVID-19 While That Case Was Ill? No Information not available 08/27/2023 In The 14 Days Before Symptom Onset, Have You Had Close Contact With A Person Who Is Under Investigation For COVID-19 While That Person Was Ill? No Information not available 08/27/2023 Are You Currently Employed? No Information not available 08/27/2023 Are You Deaf Or Do You Have Serious Difficulty Hearing? Yes Information not available 08/27/2023 What Type Of Diet Are You Following? REGULAR Information not available 08/27/2023 What Is The Highest Grade Or Level Of School You Have Completed Or The Highest Degree You Have Received? [id number] Information not available 08/27/2023 What Is The Fluoride Status Of Your Home? Unknown Information not available 08/27/2023 When Did You Quit Smoking? 16+yearssincelastc igarette Information not available 08/27/2023 Are There Any Guns Present In Your Home? No Information not available 08/27/2023 Do You Use Insect Repellent Routinely? No Information not available 06/04/2024 Where Do You Live? SingleLevelHouse With Basement Information not available 08/27/2023 Are You Able To Care For Yourself? Yes [email or web address] Information not available 12/26/2023 Are You Blind Or Do Yo Have Difficulty Seeing? No [email or web address] Information not available 12/26/2023 Are You Deaf Or Do You Have Serious Difficulty Hearing? Yes [email or web address] Information not available 12/26/2023 Live Alone Of With Others? With Others [email or web address] Information not available 12/26/2023 Do You Have A Medical Power Of Pharmacist? Yes Information not available 08/27/2023 What Was The Date Of Your Most Recent Tobacco Screening? 12/29/2024 Information not available 12/29/2024 Do You Have Any Pets? Yes Information not available 08/27/2023 What Is Your Relationship Status? Information not available 08/27/2023 Do You Use Your Seat Belt Or Car Seat Routinely? Yes Information not available 08/27/2023 Do You Have Smoke And Carbon Monoxide Detectors In Your Home? Yes Information not available 08/27/2023 Are You Passively Exposed To Smoke? Yes Information not available 08/27/2023 Are There Any Smokers In Your House? Yes Information not available 08/27/2023 Do You Feel Stressed (tense, Restless, Nervous, Or Anxious, Or Unable To Sleep At Night)? [id number] Information not available 08/27/2023 Do You Use Any Illicit Or Recreational Drugs? No Information not available 08/27/2023 Do You Use Sunscreen Routinely? No Information not available 06/04/2024 Has Tobacco Cessation Counseling Been Provided? No N/a Information not available 08/27/2023 Have You Recently Traveled Abroad? No Information not available 08/27/2023 Do You Or Have You Ever Used Any Other Forms Of Tobacco Or Nicotine? No Information not available 08/27/2023 Sex: Male Functional Status Question Answer Note LastModified by Organizat ion Details LastModified Time Do you have difficulty walking or climbing stairs? No Information not available 08/27/2023 Do you have transportation difficulties? No Information not available 08/27/2023 Are you able to walk? YESWOREST Information not available 08/27/2023 Do you have difficulty doing errands alone? No Information not available 08/27/2023 Are you able to care for yourself? Yes Information not available 08/27/2023 Do you have difficulty dressing or bathing? No Information not available 08/27/2023 What is your exercise level? None Information not available 08/27/2023 Mental Status Question Answer Note LastModified by Organization D etails LastModified Time Do you have difficulty concentrating, remembering or making decisions? Yes [email or web address] Information no t available 08/27/2023 Family History Relationship Description Onset Age of this Age Resolved Age Notes LastModified by Organization Details LastModified Time Son Aortic valve stenosis 10 [email or web address] Not available 09/02 10:03:12 Sister Diabetes mellitus Not available 2022 14:42:08 Mother Myocardial infarction Not available 08/27 14:42:20 Mother Heart disease [email or web address] Not available 02/2024 11:06:02 Father Leukemia [email or web address] Not availab le 09/02/2024 10:03:12 Brother Diabetes mellitus Not available 2022 14:42:57 Brother Myocardial infarction Not available 08/27 14:43:01 Medical History Condition Response NERVE DISEASE N BLINDNESS N RHEUMATIC FEVER N KIDNEY STONES N BLADDER PROBLEMS N MRSA N OTHER # 1 N POLIO N LUNG DISEASE/DISORDER N HISTORY OF DRUG ABUSE N RADIATION / CHEMOTHERAPY N COPD N Other # 2 N BLOOD DISEASES Y EAR OR HEARING PROBLEMS Y MUMPS N SHINGLES N BOWEL PROBLEMS N DEPRESSION (INCLUDING POST ) N FAILED BACK SYNDROME N STROKE/TIA Y ULCERS N BENIGN PROSTATIC HYPERPLASIA N MEASLES N HYPOTENSION N MYOCARDIAL INFARCTION N OBESITY N GERD/NAUSEA N ANEURYSM N URINARY/BLADDER/KIDNEY PROBLEMS Y CORONARY ARTERY DISEASE (CAD) N Do you have Advance directive? N ADDICTION CONCERNS N Impotence N ENDOMETRIOSIS N USE OF BLOOD THINNERS Y SKIN PROBLEMS N GASTROINTESTINAL DISORDER N PERIPHERAL VASCULAR DISEASE N MUSCLE,JOINT OR BONE PROBLEMS N GASTROINTESTINAL BLEEDING N BLOOD CLOTS Y ASTHMA N CATARACTS N Abdominal Pain N ERECTILE DYSFUNCTION N ARTERIAL INSUFFICIENCY N VARICOSITIES N GI PROBLEMS N Low Testosterone N INFERTILITY N AIDS/HIV N CHEMOTHERAPY / RADIATION N LIVER DISEASE N MALE HYPOGONADISM N HYPERTENSION N Deficiency N TOURETTE'S N ANXIETY DISORDER N BLOOD TRANSFUSION N ANEMIA/BLOOD DISORDER N CHRONIC EAR INFECTIONS N TUBERCULOSIS N GLAUCOMA N FOOT PROBLEM N DIVERTICULITIS N SLEEP APNEA N CHICKENPOX N ALLERGIES/HAYFEVER N BACK INJECTIONS N INFECTIOUS DISEASE N PROSTATE N HEART ARRHYTHMIA N ESRD N INSOMNIA N HIGH CHOLESTEROL / HYPERLIPIDEMIA Y EYE PROBLEMS N HYPERTHYROIDISM N PVD N EDEMA N CHRONIC PAIN SYNDROME N HYPOTHYROIDISM N CONSTIPATION N CAROTID BLOCKAGE N BACK / NECK PROBLEMS N ATHEROSCLEROSIS N BREAST PROBLEMS N DIALYSIS N POLYCYSTIC OVARIES N ECZEMA N OSTEOPOROSIS N ARTHRITIS Y APPENDICITIS N DIABETES, TYPE Y BAD TEETH N VON WILLIBRAND'S DISEASE N ENT N HEARTBURN / REFLUX N GI N AUTISM SPECTRUM DISORDER (ASD) N POST LAMINECTOMY SYNDROME N HEPATITIS / LIVER DISEASE N GOUT N SLEEP DISORDER N ALZHEIMER'S DISEASE N Brain Problems N DEMENTIA N HERPES N SEIZURES/EPILEPSY N HEADACHES/MIGRAINES N VASCULAR DISEASE N PACEMAKER N DIZZINESS N HEART DISEASE/HEART PROBLEMS N KIDNEY DISEASE N MULTIPLE SCLEROSIS N NEUROPSYCHOLOGICAL N CANCER: SPECIFY N CARDIAC ARRHYTHMIA N ATRIAL FIBRILLATION N Gall Stones N PULMONARY EMBOLISM N AUTOIMMUNE DISEASE N Past Encounters Encounter ID Performer Location Encounter Start Date Encounter Closed Date Diagnosis/Indication Diagnosis SNOMED-CT Code Diagnosis ICD10 Code Diagnosis Note [id number] Sahara guzman MD [facility] [address] [facility] [address] [place] [address] 08/27/2023 14:08:20 08/27/2023 15:23:27 Screening - NAD 860656746 Z13.9 C-scope: Get this done Get yearly flu shotGet tdap if not doneGet COVID 19 vaccineGet PCV #20Get Shingrix and RSV vaccinesHe has declined all his vaccines 08/27/2023 RTC in 4 months, do labs, ER if worse, he and his son verbalized his understand ing of the above Essential hypertension 24383276 I10 On lisinopril 2.5mg dailyGet labsGet a referral to cardiology Hyperlipidemia 63091507 E78.5 On ASAOn atorvastat in 80mg 1/2 tab dailyGet labs 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 202073596 E11.9 On synjardy XR 5-500mg bidOn trulicity 1.5mg weeklyGet labs Urinary incontinence 165 180689 R32 On flomaxOn myrbetriq Screening for malignant neoplasm of colon 539514721 Z12.11 Screening for malignant neoplasm of prostate 376532872 Z12.5 Ex-cigarette smoker 2810 23935 Z87.891 Get US AAA Gastroesop hageal reflux disease without esophagitis 121029305 K21.9 On omeprazole 20mg daily, take PRN, get EGD Moderate r ecurrent major depression 11863496 F33.1 States that he did use to have [facility] used to be on medication s, but has not taken these, used to see psychiatry in the past, declines any meds or referrals, states that he is doing very well, not suicidal or homicidal Coronary arteriosclerosis 21165722 I25.10 On eliquisSho uld NOT be on coumadinNe eds to see cardiology [id number] Mode Jerez MD [facility] [place] [address] [place] [address] 10/29/2023 10:34:14 10/29/2023 11:28:20 Pain in right hip joint 8084630301 31754 M25.551 Low back pain 619951147 M54.50 [id number] Mode Jerez MD [facility] [place] [address] [place] [address] 11/26/2023 10:10:38 11/26/2023 11:16:18 Pain of left hip joint 8972942805 89124 M25.552 Low back pain 046395664 M54.50 [id number] Sahara guzman MD [facility] [address] [facility] [place] [address] 12/26/2023 17:21:50 12/26/2023 18:05:09 Screening - NAD 616796117 Z13.9 C-scope: Get this done Get yearly flu shotGet tdap if not doneGet COVID 19 vaccineGet PCV #20Get Shingrix and RSV vaccinesHe has declined all his vaccines 08/27/2023 RTC in 4 months, do labs, ER if worse, he verbalized his understand ing of the above Essential hypertension 20442365 I10 On lisinopril 2.5mg dailyGet labsGet a referral to cardiology Hyperlipidemia 45303695 E78.5 On ASAOn atorvastat in 80mg 1/2 tab dailyGet labs 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 760893666 E11.9 On metformin ER 500mg bidOn synjardy XR 5-500mg bid, d/c this as he is already on metforminO n trulicity 1.5mg weeklyGet labs Urinary incontinence 165 711322 R32 On flomaxOn myrbetriq Screening for malignant neoplasm of colon 736749375 Z12.11 Ex-cigarette smoker 2810 65661 Z87.891 AAA: 10/14/2023 : Neg Gastroesop hageal reflux disease without esophagitis 772826852 K21.9 On omeprazole 20mg daily, take PRN, get EGD Moderate r ecurrent major depression 12334541 F33.1 States that he did use to have [facility] , [facility], used to be on medication s, but has not taken these, used to see psychiatry in the past, declines any meds or referrals, states that he is doing very well, not suicidal or homicidal Coronary arteriosclerosis 36290397 I25.10 On eliquisSho uld NOT be on coumadinNe eds to see cardiology Cystitis 35050711 N30.90 S/p ER 12/05/2023 , s/p CT A/P 12/05/2023 Referred to urology Pain of le ft hip joint 5783162407 58902 M25.552 [place] [facility] 11/26/2023 Dr Jerez/Magy 11/26/2023 , treated with PT Low back pain 799025629 M54.50 Addnedum 11/26/2023 See case on 11/14/2023 , tramadol sent On methocarbo mol, see [facility] note, should stop thisAlso stop any NSAIDs Referred to Dr Payne ortho spine surgeonAls o to see Dr Jerez on 01/01/2024 Adult heal th examination 897352340 Z00.00 Screening for disorder 014181334 Z13.9 [id number] Sahara guzman MD [facility] [place] [address] [facility] [place] [address] 06/04/2024 09:47:52 06/04/2024 10:38:05 Screening - NAD 339883579 Z13.9 C-scope: Get this done Get yearly flu shotGet tdap if not doneGet COVID 19 vaccineGet PCV #20Get Shingrix and RSV vaccinesHe has declined all his vaccines 08/27/2023 RTC in 4 months, do labs, ER if worse, he verbalized his understand ing of the above Essential hypertension 22136748 I10 On lisinopril 2.5mg dailyGet labsGet a referral to cardiology Hyperlipidemia 17534257 E78.5 On ASAOn atorvastat in 80mg 1/2 tab dailyGet labs 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 978938572 E11.9 On metformin ER 500mg bidOn synjardy XR 5-500mg bid, d/c this as he is already on metforminO n trulicity 1.5mg weeklyGet labs Urinary incontinence 165 242001 R32 On flomaxOn myrbetriq 12/05/2023 : [facility] ER s/p fall hematuria, CT A/P CT A/P 01/29/2024 d/t hematuria from recent cystoscopy [facility] 03/29/2024 :CT A/P: 03/29/2024 : L hydronephr osis Bladder Bx: 04/10/2024 : Dr Freeman Screening for malignant neoplasm of colon 191824021 Z12.11 Ex-cigarette smoker 2810 43595 Z87.891 AAA: 10/14/2023 : Neg Gastroesop hageal reflux disease without esophagitis 625426904 K21.9 On omeprazole 20mg daily, take PRN, get EGD Moderate r ecurrent major depression 40227884 F33.1 States that he did use to have [facility] , [facility], used to be on medication s, but has not taken these, used to see psychiatry in the past, declines any meds or referrals, states that he is doing very well, not suicidal or homicidal Coronary arteriosclerosis 21632327 I25.10 On eliquisSho uld NOT be on coumadinNe eds to see cardiology Cystitis 10095084 N30.90 S/p ER 12/05/2023 , s/p CT A/P 12/05/[address] A/P 01/29/2024 d/t hematuria from recent cystoscopy [facility] 03/29/2024 :CT A/P: 03/29/2024 : L hydronephr osis Bladder Bx: 04/10/2024 : Dr Freeman Pain of le ft hip joint 1244308821 49562 M25.552 [facility] 11/26/2023 Dr Jerez/Magy 11/26/2023 , treated with PT Low back pain 039887917 M54.50 Addnedum 11/26/2023 See case on 11/14/2023 , tramadol sent On methocarbo mol, see [facility] note, should stop thisAlso stop any NSAIDs Referred to Dr Payne ortho spine surgeonAls o to see Dr Jerez on 01/01/2024 MRI T/C spine 05/01/2024 Steatosis of liver 64850 1007 K76.0 12/05/2023 : CT A/PUS liver 10/14/2023 Get labs Screening for malignant neoplasm of prostate 194330703 Z12.5 [id number] Sahara guzman MD [facility] Internal Med [facility] [address] [facility] [address] [place] [address] 07/14/2024 09:47:47 07/14/2024 10:40:52 Screening - NAD 392716314 Z13.9 C-scope: Get this done Get yearly flu shot, declined 07/14/2024 Get tdap if not doneGet COVID 19 vaccineGet PCV #20Get Shingrix and RSV vaccinesHe has declined all his vaccines 08/27/2023 , 07/14/2024 RTC in 4 months, do labs, ER if worse, he and his son did verbalize his understand ing of the above Essential hypertension 19130663 I10 On lisinopril 2.5mg daily, do not take till seen by cardiology d/t recent hospitaliz ation for syncope, d/c 07/08/2024 Get labsGet a referral to cardiology Hyperlipidemia 84834609 E78.5 On ASAOn atorvastat in 80mg 1/2 tab dailyGet labs 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 899066140 E11.9 On metformin ER 500mg bidOn synjardy XR 5-500mg bid, d/c this as he is already on metforminO n trulicity 1.5mg weeklyGet labs Urinary incontinence 165 977161 R32 On flomaxOn myrbetriq 12/05/2023 : [facility] ER s/p fall hematuria, CT A/P CT A/P 01/29/2024 d/t hematuria from recent cystoscopy [place] [facility] 03/29/2024 :CT A/P: 03/29/2024 : L hydronephr osis Bladder Bx: 04/10/2024 : Dr Freeman Screening for malignant neoplasm of colon 573337712 Z12.11 Ex-cigarette smoker 2810 04137 Z87.891 AAA: 10/14/2023 : Neg Gastroesop hageal reflux disease without esophagitis 800887103 K21.9 On omeprazole 20mg daily, take PRN, get EGD Moderate r ecurrent major depression 02611876 F33.1 States that he did use to have [facility] , [facility], used to be on medication s, but has not taken these, used to see psychiatry in the past, declines any meds or referrals, states that he is doing very well, not suicidal or homicidal Coronary arteriosclerosis 78433756 I25.10 On eliquis, restarted on at D/c from [facility] on 07/08/2024 Should NOT be on coumadinNe eds to see cardiology Cystitis 99761427 N30.90 S/p ER 12/05/2023 , s/p CT A/P 12/05/[address] A/P 01/29/2024 d/t hematuria from recent cystoscopy [place] [facility] 03/29/2024 :CT A/P: 03/29/2024 : L hydronephr osis Bladder Bx: 04/10/2024 : Dr Freeman Seen in the ER and admitted to [place] and D/c 07/08/2024 : Noted to have hematuria, has to see Dr Cantrell on flomax 0.4mg daily Pain of le ft hip joint 7106242929 41726 M25.552 [place] [facility] 11/26/2023 Dr Jerez/Magy 11/26/2023 , treated with PT Low back pain 405347217 M54.50 Addnedum 11/26/2023 See case on 11/14/2023 , tramadol sent On methocarbo mol, see [facility] note, should stop thisAlso stop any NSAIDs Referred to Dr Payne ortho spine surgeonAls o to see Dr Jerez on 01/01/2024 MRI T/C spine 05/01/2024 On gabapentin 300mg tid Steatosis of liver 65614 1007 K76.0 12/05/2023 : CT A/PUS liver 10/14/2023 Syncope 227352744 R55 S/p D/c 07/08/2024 : [facility] brain 07/04/2024 CT C-spine 07/04/2024 XR Chest 07/04/2024 ECHO 07/04/2024 : 55-60%MRI brain 07/07/2024 : [facility] eds to see Dr Freeman Transition of care 73812 41329 105 Z75.8 Anemia 789459627 D64.9 On iron 325mg daily, get labs Neuropathy 998236321 G62 [address] Mills anS/p EMG [id number] Myron Guido DPM [facility] [place] [address] [address] [place] [address] 07/17/2024 09:50:02 07/21/2024 09:34:00 Peripheral neuropathy due to type 2 diabetes mellitus 5929344457 107 E11.42 Onychomyco sis of toenails 817150484 B35.1 [id number] Gabi Robbins MD [facility] [place] [address] [place] [address] 08/07/2024 15:13:33 08/07/2024 16:26:29 Chronic retention of urine 344730829 R33.8 [id number] Sahara guzman MD [facility] [address] [facility] [address] [place] [address] 08/12/2024 11:22:19 08/12/2024 12:43:30 Screening - NAD 272560400 Z13.9 C-scope: Get this done Get yearly flu shot, declined 07/14/2024 Get tdap if not doneGet COVID 19 vaccineGet PCV #20Get Shingrix and RSV vaccinesHe has declined all his vaccines 08/27/2023 , 07/14/2024 RTC in 2 months, do labs, ER if worse, he and his son did verbalize his understand ing of the above 45 minutes spent with the patient, labs reviewed, chart updated, referrals provided, discussed his apt with urology and cardiology Essential hypertension 43820303 I10 On lisinopril 2.5mg daily, do not take till seen by cardiology d/t recent hospitaliz ation for syncope, d/c 07/08/2024 Get labsGet a referral to cardiology Hyperlipidemia 74990958 E78.5 On ASAOn atorvastat in 80mg 1/2 tab dailyGet labs 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 916657052 E11.9 On metformin ER 500mg bidOn synjardy XR 5-500mg bid, d/c this as he is already on metforminO n trulicity 1.5mg weeklyGet labs Urinary incontinence 165 963245 R32 On flomaxOn myrbetriq 12/05/2023 : [facility] ER s/p fall hematuria, CT A/P CT A/P 01/29/2024 d/t hematuria from recent cystoscopy [facility] 03/29/2024 :CT A/P: 03/29/2024 : L hydronephr osis Bladder Bx: 04/10/2024 : Dr Freeman Ex-cigarette smoker 2810 66741 Z87.891 US AAA: 10/14/2023 : Neg Coronary arteriosclerosis 09312420 I25.10 On eliquis, restarted on at D/c from [facility] on 07/08/2024 Should NOT be on coumadin Dr Sofia [facility] 08/06/2024 : On eliquis, and has to see Dr Gee Gastroesop hageal reflux disease without esophagitis 298502691 K21.9 On omeprazole 20mg daily, take PRN, get EGD Moderate r ecurrent major depression 84897799 F33.1 States that he did use to have [facility] , [facility], used to be on medication s, but has not taken these, used to see psychiatry in the past, declines any meds or referrals, states that he is doing very well, not suicidal or homicidal Cystitis 33984687 N30.90 On flomaxOn Myrbetriq 50mg daily S/p ER 12/05/2023 , s/p CT A/P 12/05/2023 Referred to urologyCT A/P 01/29/2024 d/t hematuria from recent cystoscopy [facility] 03/29/2024 :CT A/P: 03/29/2024 : L hydronephr osisBladde r Bx: 04/10/2024 : Dr Edward in the ER and admitted to [place] and D/c 07/08/2024 : Noted to have hematuria, has to see Dr Pete Robbins 08/07/2204 : to get monthly Omer Cath done Pain of le ft hip joint 3134588137 97143 M25.552 [place] [facility] 11/26/2023 Dr Jerez/Magy 11/26/2023 , treated with PT Low back pain 871345567 M54.50 Addnedum 11/26/2023 See case on 11/14/2023 , tramadol sent On methocarbo mol, see [facility] note, should stop thisAlso stop any NSAIDs Referred to Dr Payne ortho spine surgeonAls o to see Dr Jerez on 01/01/2024 MRI T/C spine 05/01/2024 On gabapentin 300mg tid Steatosis of liver 78463 1007 K76.0 12/05/2023 : CT A/PUS liver 10/14/2023 Hep panel/GGT: Neg 06/04/2024 Repeat US liver, ordered 08/12/2024 Syncope 252232133 R55 [facility] 07/04/2024 XR Chest 07/04/2024 ECHO 07/04/2024 : 55-60%MRI brain 07/07/2024 : [facility] OV 08/12/2024 : Does well now Anemia 583516726 D64.9 On iron 325mg daily, get labs Neuropathy 370242463 G62 .[address] Mills anS/p EMG Proteinuria 01254612 R80 .9 Refer to nephrology [id number] MD EDITH Melendez [facility] [address] [address] 09/02/2024 09:59:47 09/02/2024 10:35:07 Chronic retention of urine 631810811 R33.8 [id number] MD EDITH Melendez [facility] [address] [address] 10/02/2024 10:44:50 10/02/2024 11:27:52 Chronic retention of urine 058722984 R33.8 [id number] Sahara guzman MD [facility] [address] [facility] [facility] [address] [place] [address] 10/14/2024 14:34:18 10/14/2024 15:06:28 Screening - NAD 989968187 Z13.9 C-scope: Get this done Get yearly flu shot, declined 07/14/2024 Get tdap if not doneGet COVID 19 vaccineGet PCV #20Get Shingrix and RSV vaccinesHe has declined all his vaccines 08/27/2023 , 07/14/2024 RTC in 2 months, do labs, ER if worse, he and his son did verbalize his understand ing of the above 45 minutes spent with the patient, labs reviewed, chart updated, referrals provided, discussed his apt with urology and cardiology Essential hypertension 65488646 I10 Not on lisinopril 2.5mg daily, do not take till seen by cardiology d/t recent hospitaliz ation for syncope, d/c 07/08/2024 Get labs Hyperlipidemia 50119704 E78.5 On ASAOn atorvastat in 80mg 1/2 tab dailyGet labs 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 544029958 E11.9 On metformin ER 500mg bidOn synjardy XR 5-500mg bid, d/c this as he is already on metforminO n trulicity 1.5mg weeklyGet labs Urinary incontinence 165 140964 R32 On flomaxOn myrbetriq 12/05/2023 : [facility] ER s/p fall hematuria, CT A/P CT A/P 01/29/2024 d/t hematuria from recent cystoscopy [facility] 03/29/2024 :CT A/P: 03/29/2024 : L hydronephr osis Bladder Bx: 04/10/2024 : Dr Freeman Ex-cigarette smoker 2626 43672 Z87.891 US AAA: 10/14/2023 : Neg Coronary arteriosclerosis 99029602 I25.10 On eliquis, restarted on at D/c from [facility] on 07/08/2024 Should NOT be on coumadin OV 10/14/2024 :Dr Sofia [facility] 08/06/2024 : On eliquis, and has to see Dr Gee and is s/p PCM insertion Gastroesop hageal reflux disease without esophagitis 584548174 K21.9 On omeprazole 20mg daily, take PRN,Get EGD report Moderate r ecurrent major depression 20781231 F33.1 States that he did use to have [facility] , [facility], used to be on medication s, but has not taken these, used to see psychiatry in the past, declines any meds or referrals, states that he is doing very well, not suicidal or homicidal Cystitis 80820115 N30.90 On flomaxOn Myrbetriq 50mg daily S/p ER 12/05/2023 , s/p CT A/P 12/05/2023 Referred to urologyCT A/P 01/29/2024 d/t hematuria from recent cystoscopy [facility] 03/29/2024 :CT A/P: 03/29/2024 : L hydronephr osisBladde r Bx: 04/10/2024 : Dr Edward in the ER and admitted to [place] and D/c 07/08/2024 : Noted to have hematuria, has to see Dr Pete Robbins 08/07/2204 : to get monthly Omer Cath done Pain of le ft hip joint 8328524382 22051 M25.552 [place] [facility] 11/26/2023 Dr Jerez/Magy 11/26/2023 , treated with PT Low back pain 893142876 M54.50 Addnedum 11/26/2023 See case on 11/14/2023 , tramadol sent On methocarbo mol, see [facility] note, should stop thisAlso stop any NSAIDs Referred to Dr Payne ortho spine surgeonAls o to see Dr Jerez on 01/01/2024 MRI T/C spine 05/01/2024 On gabapentin 300mg tid Steatosis of liver 1007 K76.0 12/05/2023 : CT A/PUS liver 10/14/2023 Hep panel/GGT: Neg 06/04/2024 Repeat US liver, ordered 08/12/2024 Syncope 607348898 R55 [facility] 07/04/2024 XR Chest 07/04/2024 ECHO 07/04/2024 : 55-60%MRI brain 07/07/2024 : [facility] OV 08/12/2024 : Does well now Anemia 844376858 D64.9 On iron 325mg daily, get labs Neuropathy 051223280 G62 .[address] Mills anS/p EMG Proteinuria 51471162 R80 .9 Refer to nephrology Screening for malignant neoplasm of colon 033718117 Z12.11 Get C-scope report [id number] Sahara guzman MD [facility] [address] [address] [facility] [place] [address] 12/29/2024 16:37:02 12/29/2024 18:14:17 Screening - NAD 770953094 Z13.9 C-scope/EG : Dr Aguilar Get yearly flu shot, declined 07/14/2024 Get tdap if not doneGet COVID 19 vaccineGet PCV #20Get Shingrix and RSV vaccinesHe has declined all his vaccines 08/27/2023 , 07/14/2024 RTC in 2 months, do labs, ER if worse, he and his son did verbalize his understand ing of the above Essential hypertension 13961363 I10 Not on lisinopril 2.5mg dailyGet labs Hyperlipidemia 52192166 E78.5 On ASAOn atorvastat in 80mg 1/2 tab dailyGet labs 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 [id number] E11.9 On metformin ER 500mg bidNot on synjardy XR 5-500mg bid, d/c this as he is already on metforminO n trulicity 1.5mg weeklyGet labs Urinary incontinence 165 [id number] R32 On flomaxOn myrbetriq 12/05/2023 : [facility] ER s/p fall hematuria, CT A/P CT A/P 01/29/2024 d/t hematuria from recent cystoscopy [place] [facility] 03/29/2024 :CT A/P: 03/29/2024 : L hydronephr osis Bladder Bx: 04/10/2024 : Dr Freeman Ex-cigarette smoker 2810 38325 Z87.891 US AAA: 10/14/2023 : Neg Coronary arteriosclerosis 61601843 I25.10 On eliquis, restarted on at D/c from [facility] on 07/08/2024 Should NOT be on coumadin OV 10/14/2024 :Dr Sofia [facility] 08/06/2024 : On eliquis, and has to see Dr Gee and is s/p PCM insertion OV 12/29/2024 : Keep apt with cardiology Gastroesop hageal reflux disease without esophagitis 900938686 K21.9 On omeprazole 20mg daily, take PRN,Get EGD report Moderate r ecurrent major depression 44944346 F33.1 States that he did use to have PTSD , [facility] used to be on medication s, but has not taken these, used to see psychiatry in the past, declines any meds or referrals, states that he is doing very well, not suicidal or homicidal Cystitis 65094258 N30.90 On flomaxOn Myrbetriq 50mg daily S/p ER 12/05/2023 , s/p CT A/P 12/05/2023 Referred to urologyCT A/P 01/29/2024 d/t hematuria from recent cystoscopy [place] [facility] 03/29/2024 :CT A/P: 03/29/2024 : L hydronephr osisBladde r Bx: 04/10/2024 : Dr Edward in the ER and admitted to [place] and D/c 07/08/2024 : Noted to have hematuria, has to see Dr Pete Robbins 08/07/2204 : to get monthly Omer Cath done OV 12/29/2024 : Now should see urology, referred Pain of le ft hip joint [id number] 09697 M25.552 [place] [facility] 11/26/2023 Dr Jerez/Magy 11/26/2023 , treated with PT Low back pain 510046122 M54.50 Addnedum 11/26/2023 See case on 11/14/2023 , tramadol sent On methocarbo mol, see [facility] note, should stop thisAlso stop any NSAIDs Referred to Dr Payne ortho spine surgeonAls o to see Dr Jerez on 01/01/2024 MRI T/C spine 05/01/2024 On gabapentin 300mg tid Steatosis of liver 58152 1007 K76.0 12/05/2023 : CT A/PUS liver 10/14/2023 Hep panel/GGT: Neg 06/04/2024 US liver 11/03/2024 : Neg Syncope 298313643 R55 [facility] 07/04/2024 XR Chest 07/04/2024 ECHO 07/04/2024 : 55-60%MRI brain 07/07/2024 : [facility] OV 08/12/2024 : Does well now Anemia 376983044 D64.9 On iron 325mg daily, get labs Neuropathy 874610556 G62 .[address] Mills anS/p EMG Proteinuria 65327925 R80 .9 Refer to nephrology Paget's di sease of pelvis 460932689 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 (MEDICARE REPLACEMENT/A DVANTAGE - PPO) [id number] Cosme Javier [id number] Cosme Javier 08/12/2024 2 [place] [facility] [place] [facility] PUBLIC [facility] Cosme Javier [id number] Cosme Javier 09/02/[address] [facility] (MEDICARE REPLACEMENT/A DVANTAGE - PPO) [id number] Cosme Javier [id number] Cosme Javier 09/02/2024 2 [place] [facility] [place] [facility] AID Cosme Javier [id number] Cosme Javier 10/02/[address] [facility] (MEDICARE REPLACEMENT/A DVANTAGE - PPO) [id number] Cosme Javier [id number] Cosme Javier 10/02/2024 2 [place] [facility] [place] [facility] [place] AID Cosme Javier [id number] Cosme Javier 10/14/[address] [facility] (MEDICARE REPLACEMENT/A DVANTAGE - PPO) [id number] Cosme Javier [id number] Cosme Jaiver 10/14/2024 2 [place]IMARY) Cosme Javier [id number] Cosme Javier 12/29/[address] [facility] (MEDICARE REPLACEMENT/A DVANTAGE - PPO) [id number] Cosme Javier [id number] Cosme Javier 12/29/2024 2 [place]AC[place]) Cosme Javier [id number] Cosme Javier Notes Date Note Type Note Provider Name and Address Organization Details Recorded Time 08/12/2024 text/html OV 08/27/2023:He re to establish carePast Hx:HTNHLDDMIIUIEx smoker Reviewed social family and surgical historyHere to discuss above and get labs, he is here with his son OV 12/26/2023: Here for his f/u apt and his MWV, he is doing well today, he states that [facility], he otherwise feels well today OV 06/04/2024: Here for his f/u apt, he is doing well today OV 07/14/2024: Here for his post hosp f/u apt, he was d/c from [facility] 07/08/2024 for an episode of syncope, was found to have gross hematuria and anemia, now is feeling much better, he is here with his son Abraham, he is now on the iron tablets, denies any hematuria now OV 08/12/2024: Here for his f/u apt, he is doing well today Sahara Lee MD [address], [place], [address], [place] 08/12/2024 19:20:05 09/02/2024 text/html this patient is here for a catheter change. He wants to continue with catheter changes he does not want a suprapubic tube he is doing well Gabi Robbins MD [address], [place], [address], [place] 09/02/2024 12:31:40 10/02/2024 text/html this patient is coming in to get a suprapubic tube changed Gabi Robbins MD [address], [address], [place], [address], [facility] Poll Everywhere [facility] 10/02/2024 13:50:45 10/14/2024 text/html OV 08/27/2023:He re to establish carePast Hx:HTNHLDDMIIUIEx smoker Reviewed social family and surgical historyHere to discuss above and get labs, he is here with his son OV 12/26/2023: Here for his f/u apt and his MWV, he is doing well today, he states that [facility], he otherwise feels well today OV 06/04/2024: Here for his f/u apt, he is doing well today OV 07/14/2024: Here for his post hosp f/u apt, he was d/c from [facility] 07/08/2024 for an episode of syncope, was found to have gross hematuria and anemia, now is feeling much better, he is here with his son Abraham, he is now on the iron tablets, denies any hematuria now OV 08/12/2024: Here for his f/u apt, he is doing well today OV 10/14/2023: Here for his f/u apt, he feels well, he did do the labsm, he is now s/p PCM insertion with Dr Marlen LAZARO Sahara Lee MD [address], [address], [place], [address], [facility] [employer] 10/14/2024 15:04:31 12/29/2024 text/html OV 08/27/2023:He re to establish carePast Hx:HTNHLDDMIIUIEx smoker Reviewed social family and surgical historyHere to discuss above and get labs, he is here with his son OV 12/26/2023: Here for his f/u apt and his MWV, he is doing well today, he states that [facility], he otherwise feels well today OV 06/04/2024: Here for his f/u apt, he is doing well today OV 07/14/2024: Here for his post hosp f/u apt, he was d/c from [facility] 07/08/2024 for an episode of syncope, was found to have gross hematuria and anemia, now is feeling much better, he is here with his son Abraham, he is now on the iron tablets, denies any hematuria now OV 08/12/2024: Here for his f/u apt, he is doing well today OV 10/14/2023: Here for his f/u apt, he feels well, he did do the labsm, he is now s/p PCM insertion with Dr Gee [facility] OV 12/29/2024: Here for his f/u apt, he is doing well today Sahara Lee MD [address], [address], [place], [address], [facility] 12/29/2024 18:25:24
--- OUTSIDE RECORDS SUMMARY | 2025-01-15 04:24 | XMS_ITS | Clinical Summary ---
Author Organization [facility] Address [address] [place] [address] Care Team Providers Care Probate Judge Name Role Phone Unknown, Provider Primary Care Provider Unavaila ble Source Comments [facility],non-owned Affiliates and Associated Physician Practices is amultiple site organization consisting of ambulatory clinics and hospital sitesin [place], [place], [place] and [place]. This disclosure is being madepursuant to the Care Everywhere program and may not contain all information available regarding this patient. Last updated 18.[facility] Allergies Active Allergy Reactions Criticality Noted Date Comments Amitriptyline Psychiatric Medium 07/04/2017 Anger Amitriptyline Psychiatric Medium 02/28/2024 Contrast-Iodinated Agents Fo r Ct/Other Itching 02/28/2024 Morphine Psychiatric Medium 07/04/2017 Morphine Nausea and/or Vomiting 02/28/2024 Oxcarbazepine Psychiatric Medium 01/18/2022 Penicillins Urticaria Medium 07/04/2017 Trazodone Bleeding 01/18/2022 Medications * Be aware that medications may not be up to date on this document. Alwaysverify current medications with the patient. SYNJARDY 5-1000 MG tablet Take 1 tablet by mouth 2 times daily 5 9 Active omeprazole (PRILOSEC) 20 MG capsule Take 20 mg by mouth daily before breakfast Active ASPIRIN 81 PO Take 81 mg by mouth 2 times daily Active atorvastatin (LIPITOR) 80 MG tablet Take 80 mg by mouth once daily 1 9 Active montelukast (SINGULAIR) 10 MG tablet Take 1 tablet by mouth at bedtime 9 Active gabapentin (NEURONTIN) 300 MG capsule Take 300 mg by mouth 2 times daily Active dulaglutide (TRULICITY) 0.75 MG/0.5ML injection Inject 0.75 mg subcutaneously every 7 days 9 Active Multiple Vitamin (DAILY-MAURICE) TABS Take 1 tablet by mouth once daily Active ELIQUIS 5 MG tablet Take 5 mg by mouth 2 times daily 2 Active ergocalciferol (DRISDOL) 1.25 MG (24236 UT) capsule Take 50,000 Units by mouth every 7 days 0 Active ketoconazole (NIZORAL) 2 % cream APPLY SPARINGLY TO AFFECTED AREA(S) TWICE A DAY FOR INFECTION (EXTERNAL USE ONLY) 1 Active lisinopril (PRINIVIL; ZESTRIL) 2.5 MG tablet Take 2.5 mg by mouth once daily 2 Active tamsulosin (FLOMAX) 0.4 MG capsule Take 1 (one) capsule by mouth 2 times daily after meals 60 capsule 3 2 Active ferrous sulfate 325 (65 FE) MG tablet Take 325 mg by mouth Three times a week 2 Active HYDROcodone-ac etaminophen (NORCO) 5-325 MG tablet Take 1 (one) tablet by mouth every 6 hours as needed for Pain 20 tablet 2 Active gabapentin (Neurontin) 300 MG capsule Take 1 (one) capsule by mouth 3 times daily 270 capsule 4 4 Active Active Problems Problem Noted Date Diagnosed Date Abdominal pain, epigastric 11/30/2019 Cognitive impairment 10/07/2019 Neuropathy 10/07/2019 CAD (coronary artery disease) Immunizations Immunization Administration Dates Next Due INFLUENZA VACCINE, TRIV. (AF LURIA, FLUZONE TRIVALENT; 6MO+) (IIV3) 10/03/2016 FLU VACCINE TRI IIV3 SPLIT PF IM (FLUVIRIN) 09/24 INFLUENZA A K3P1-28 VACCINE 11/24/2009 INFLUENZA VACCINE 06/18/2015,06/03/2012 PNEUMOCOCCAL PCV VACCINE 03/11/2016 PNEUMOCOCCAL PPSV23 03/22/2014 PNEUMOCOCCAL PPV VACCINE 10/03/2016 Pneumococcal Pcv13 Conj 10/17/2016 TD VACCINE 12/08/2000 TDAP (7yrs+) 06/03/2012 Td (Adult), 2 Lf Tetanus Toxoid, Adsorbed, Pf Family History Medical History Relation Name Comments Diabetes - Type 2 Brother 1 Diabetes - Type 2 Brother 2 Diabetes - Type 2 Father Leukemia Father CAD (Coronary Artery Disease) Mother Relation Name Status Comments Brother 1 Brother 2 Father Mother Sister Alive Social History Tobacco Use Types Packs/Day Years Used Date Smoking Tobacco: Former Smokeless Tobacco: Never Tobacco Cessation:Counseling Given: No Alcohol Use Standard Drinks/Week Comments No 0 (1 standard drink = 0.6 oz pur e alcohol) Sex and Gender Information Value Date Recorded Sex Assigned at Not on file 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 Gender Identity Not on file Sexual Orientation Not on file Occupation Industry Job Start Date Job End Date Retired Not on file Not on file Not on file Last Filed Vital Signs Vital Sign Reading Time Taken Comments Blood Pressure 111/72 02/28/2024 10:04 AM CDT Pulse 78 02/28/2024 10:04 AM CDT Temperature 36.7 C (98 F) 04/03/2022 12:31 PM CDT Respiratory Rate 18 04/03/2022 1:30 PM CDT Oxygen Saturation 97% 02/28/2024 10:04 AM CDT Inhaled Oxygen Concentration - - Weight 92.1 kg (203 lb) 02/28/2024 10:04 AM CDT Height 185.4 cm (6' 1 ) 02/28/2024 10:04 AM CDT Body Mass Index 26.78 02/28/2024 10:04 AM CDT Plan of Treatment Health Maintenance Due Date Last Done Comments ZOSTER VACCINE (1 of 2) 1995 Respiratory Syncytial Virus (RSV) Vaccine Pt: or over 60 yrs (1 - 1-dose 75+ series) 2020 DTAP/TDAP/TD VACCINES (3 - Td or Tdap) 06/03/2022 06/03/2012, 12/08/2000, 02/24/1998 COVID-19 VACCINE ( - season) 2024 DEPRESSION SCREENING 09/23/2024 12/25/2021 MEDICARE AWV CALENDAR YEAR 2024 09/06/2020 INFLUENZA VACCINE (Season Ended) 2025 06/23/2022, 08/18/2021, 06/23/2021, Additional history exists PNEUMOCOCCAL VACCINE 50+ Completed 017, 10/03/2016, 03/11/2016, Additional history exists HEPATITIS B VACCINE Aged Out No longe r eligible based on patient's age to complete this topic HIB VACCINE Aged Out No longer eligi ble based on patient's age to complete this topic HPV VACCINE Aged Out No longer eligi ble based on patient's age to complete this topic MENINGOCOCCAL (Group B) VACCINE SHARED DECISION-MAKING Aged Out No longer eligible based on patient's age to complete this topic MENINGOCOCCAL GROUPS A/C/Y/W VACCINE Aged Out No longer eligible based on patient's age to complete this topic Medical Devices Explanted Type Area Car Wash Manager Device Identifier Shelf Expiration Date Model / Serial / Lot Stent Tria Sft 6x30 Implanted:Qty: 1 on 03/13/2022 by Chace Dale MD at [facility] Explanted:Qty: 1 on 04/03/2022 by Chace Dale MD at [facility] Left: Ureter Impactia Scimed 12/06/2024 [id number] / / [id number] Insurance MANAGED MEDICARE REPLACED BY [facility] [place]ID - [place] [facility] MANAGED MEDICARE ADV [place]ICAID - [place] [facility] MANAGED MEDICARE ADV Member Subscriber Plan / Payer (Ef fective 2024-Present) Name:Mary Grace Lau Relation to Subscriber:Self Name:Yaya Mary Grace Payer ID:[id number] (NAIC) Type:Medicare-Managed Care Address: [place] [phone] [place] - [place] Member Subscriber Plan / Payer (Ef fective for All Dates) Name:Mary Grace Lau Member ID:Not on file Relation to Subscriber:Self Name:YayaMary Grace Payer ID:Not on file Group ID:Not on file Type:Medicaid [place] Address: [place] [id number] [facility] MANAGED MEDICARE ADV Member Subscriber Plan / Payer (Ef fective 2024-Present) Name:Mary Grace Lau Relation to Subscriber:Self Name:Mary Grace Lau Payer ID:[id number] ([facility]) Type:Medicare-Managed Care Address: [address] [place]ICAID - [place] [facility] MANAGED MEDICARE ADV Member Subscriber Plan / Payer (Ef fective 2024-Present) Name:Mary Grace Lau Relation to Subscriber:Self Name:Mary Grace Lau Payer ID:[id number] (NAIC) Type:Medicare-Managed Care Address: [address] * Guarantor: MARY GRACE LAU Account Type Relation to Patient Date of Phone Billing Address Personal/Family [address] [place] [address] [place] Member Subscriber Plan / Payer (Ef fective for All Dates) Name:Mary Grace Lau Member ID:Not on file Relation to Subscriber:Self Name:Mary Grace Lau Subscriber ID:Not on file Payer ID:Not on file Group ID:Not on file Type:Medicaid [place] Address: [address] MANAGED MEDICARE ADV Member Subscriber Plan / Payer (Ef fective 2024-) Name:Mary Grace Lau Relation to Subscriber:Self Name:Mary Grace Lau Payer ID:[id number] (NAIC) Type:Medicare-Managed Care Address: [place] [phone] * Guarantor: MARY GRACE LAU Account Type Relation to Patient Date of Phone Billing Address Personal/Family [address] [place] [address] [place] Member Subscriber Plan / Payer (Ef fective for All Dates) Name:Mary Grace Lau Member ID:Not on file Relation to Subscriber:Self Name:Mary Grace Lau Subscriber ID:Not on file Payer ID:Not on file Group ID:Not on file Type:Medicaid [place] Address: [address] MANAGED MEDICARE ADV * Guarantor: MARY GRACE LAU Account Type Relation to Patient Date of Phone Billing Address Personal/Family [address] [place] [address] MEDICAID - [place] [employer] MANAGED MEDICARE ADV Advance Directives * Full Code (Latest Code Status on File) Date Activated Date Inactivated Comments 12/03/2019 11:25 AM 12/04/2019 12:31 PM * DNR - IF PULSELESS NO CPR, NO SHOCK Date Activated Date Inactivated Comments 12/01/2019 1:11 AM 12/03/2019 11:25 AM Question Answer Comments : DO NOT discontinue a ny active orders without asking attending physician. * Full Code Date Activated Date Inactivated Comments 11/30/2019 7:21 PM 12/01/2019 1:11 AM Care Teams Probate Judge Relationship Specialty Start Date End Date Unknown, Provider PCP - General 02/28/24
--- OUTSIDE RECORDS SUMMARY | 2025-01-15 04:24 | XMS_ITS | Encounter Summary ---
Author Organization [facility] Address 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
--- OUTSIDE RECORDS SUMMARY | 2025-01-15 04:24 | XMS_ITS | Encounter Summary ---
Author Organization [facility] Address 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
--- OUTSIDE RECORDS SUMMARY | 2025-01-15 04:25 | XMS_ITS | Encounter Summary ---
Author Name [facility] [place] Address [address] [place] [address] Care Team Providers Care Soda Maker Name Role Phone TI JOSHUA Primary Care Provider Unavailabl e SERA BARAJAS Primary Care Provider Unavailabl e Insurance Providers: [...] Robles's Name Patient's Relationship to Policy Robles [facility] (WNR) MEDICARE ADVANTAGE [facility] (WNR) Aug 23, 2023 [id number] [phone] MARY GRACE CASEY PATIENT [facility] (WNR) MEDICARE ADVANTAGE [facility] (WNR) Nov 21, 2021 [id number] [phone] MARY GRACE CASEY PATIENT [place] MED[place]ID MEDIC AID ([facility]) Sep 23, 2016 MEDICAI D [id number] EMILY McnairMARY GRACE PATIENT MEDICARE ([place]) MEDICARE (M) PART B Apr 23, 2007 PART B [id number] PETERMARY GRACE Spears PATIENT MEDICARE ([place]) MEDICARE (M) PART B Apr 23, 2007 PART B [id number] [phone] EMILY McnairMARY GRACE PATIENT MEDICARE ([place]) MEDICARE (M) PART A Dec 22, 2005 PART A [id number] [phone] PETERMARY GRACE Spears PATIENT MEDICARE ([place]NR) MEDICARE (M) PART A Dec 22, 2005 PART A [id number] EMILY McnairMARY GRACE PATIENT MEDICARE PART D ([place]NR) MEDICARE (M) PART D Nov 21, 2021 PART D [id number] [facility]IC[facility] ADVANTAGE [facility] (R) Nov 21, 2021 [id number] EMILY McnairMARY GRACE [facility] (WNR) MEDICARE ADVANTAGE [facility] (R) Nov 21, 2021 [id number] [phone] [facility] [place] [facility] SPECT ERA VISIO N Sep 23, 2022 [id number] [phone] EMILY McnairMARY GRACE PATIENT Selected Encounter This section includes the information on record at [place] for the Encounter. Date/Time Encounter Type Encounter Description Reason Provider Source Dec 15, 2024 01:00 PM OFFICE O/P EST MOD 30 MIN PRIMARY CARE/MEDICINE ICD-10-CM E11.9 Type 2 diabetes mellitus without complications SERA BARAJAS [facility] Encounter Template Text not used by [place] Assessments - Encounter Diagnoses This section includes the primary and secondary diagnoses documented for the Encounter. Date/Time Primary/Secondary Diagnosis Diagnosis Name Provider Source Dec 15, 2024 02:22 PM PRIMARY Type 2 diabetes mellitus without complications SERA BARAJAS [facility] Dec 15, 2024 02:22 PM SECONDARY Acute embolism and thombos unsp deep vn unsp lower extremity SERA BARAJAS [facility] Dec 15, 2024 02:22 PM SECONDARY Athscl heart disease of pam[place] cor art w oth ang pctrs [facility] Dec 15, 2024 02:22 PM SECONDARY Cardiomyopathy, unspecified [facility] Dec 15, 2024 02:22 PM SECONDARY Edema, unspecified [facility] Dec 15, 2024 02:22 PM SECONDARY Essential (primary) hypertension [facility] Dec 15, 2024 02:22 PM SECONDARY 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 Radiology Reports and Pathology Reports are provided separately, in subsequent sections. Lab Results This section contains the Chemistry/Hematology Results that were resulted 30 days before or 30 daysafter the date of the Encounter. Date/Time Source Result Type Result - Unit Interpretation Reference Range Specimen Type Comment Dec 16, 2024 12:00 AM [facility] HGA1C BLOOD Specimen Type: BLOOD No comment entered. Ordering Provider: SERA BARAJAS Report Released Date/Time: Dec 11, 2024 04:22 PM Reporting Lab: [facility] [address] [facility] [address] Performing Lab: [facility] [address] [facility] [address] HGA1C 7.3 H 4.0-6.0 Dec 16, 2024 12:00 AM [facility] MICRAL/CREAT PROFILE (STL) URINE Specimen Typ e: URINE No comment entered. Ordering Provider: SERA BARAJAS Report Released Date/Time: Dec 11, 2024 04:22 PM Reporting Lab: [facility] [address] [facility] [address] Performing Lab: [facility] [address] [facility] [address] URINE ALBUMIN (PB-STL) 226.8 mg/L uACR (STL) 422 mg/g H 0-29 CREATININE URINE/OTHERS 53.7 mg/dL L 63-16 6 Dec 16, 2024 12:00 AM [facility] LIPID PANEL (STL) PLASMA Specimen Type: PLASM A Comment: No hemolysis noted. Ordering Provider: SERA BARAJAS Report Released Date/Time: Dec 11, 2024 04:22 PM Reporting Lab: [facility] [address] [facility] [address] Performing Lab: [facility] [address] [facility] [address] CHOLESTEROL 90 mg/dL 0-200 TRIGLYCERIDE 63 mg/dL 0-150 CALCULATED LDL 32 mg/dL HDL(New) 45 mg/dL >40 Dec 16, 2024 12:00 AM [facility] COMPREHENSIVE METABOLIC PANEL PLASMA Specimen Type: PLASMA Comment: No hemolysis noted. Ordering Provider: SERA BARAJAS Report Released Date/Time: Dec 11, 2024 04:22 PM Reporting Lab: [facility] [address] [facility] [address] Performing Lab: [facility] [address] [facility] [address] CREATININE 0.90 mg/dL 0.7-1.3 UREA NITROGEN 19.8 mg/dL 9.0-25.0 GLUCOSE 167 mg/dL H 72-99 SODIUM 139 meq/L 136-145 POTASSIUM 4.0 meq/L 3.5-5 CHLORIDE 102 meq/L 98-107 CARBON DIOXIDE 26 meq/L 22-31 CALCIUM 10.0 mg/dL 8.4-10.4 PROTEIN 7.9 g/dL 6-8.6 ALBUMIN 4.2 g/dL 3.4-5 TOTAL BILIRUBIN 0.5 mg/dL 0.2-1.2 ALKALINE PHOSPHATASE 133 U/L 40-150 AST/SGOT 27 U/L 5-34 ALT/SGPT 16 U/L 8-40 EGFR (CKD-EPI 2020) 86.9 >60 Vital Signs: All taken on the encounter date This section contains inpatient and outpatient Vital Signs collected on the date of the Encounter. Date/Time Temperature Pulse Blood Pressure Respiratory Rate SP02 Pain Height Weight Body Mass Index Source Dec 15, 2024 12:52 PM 98 63 139/74 16 96 0 72 215.8 29 [facility] Social History: Smoking Status (Most current) and Tobacco Use (All prior to encounter date) This section includes the most current, and the historical, smoking and tobacco- related health factors from the [place] facility where the Encounter took place. Current Smoking Status This section includes the most current smoking, or tobacco-related health factor, from the [place] facility where the Encounter took place. Date/Time Current Smoking Status Comment Facil ity Apr 09, 2023 09:00 AM VA-TOBACCO FORMER USER [facility] Tobacco Use History This section includes a history of the smoking, or tobacco-related health factors, that were collected on or before the date of the Encounter. The data comes from the [place] facility where the Encounter took place. Date/Time Smoking Status/Tobacco Use Comment F acility Apr 09, 2023 09:00 AM [place]-TOBAC[place] QUIT 15 YRS OR MORE [facility] Advance Directives: All historical and current Section Date Range: From patient's date of to the date document was created. This section includes ALL of a patient's completed or amended [place] Advance and Rescinded Directives. The entries below indicate that a directive exists for the patient, but an actual copy is not included with this document. The data comes from all [place] facilities. Date Advance Directives Provider Source Jun 02, 1997 ADVANCE DIRECTIVE MARILYN BARRERA [facility] Encounter Notes: All associated encounter notes This section contains the clinical notes associated to the Encounter. Date/Time Encounter Note(s) Provider Source Dec 17, 2024 11:20 AM PHYSICIAN LETTERS: LOCAL TITLE: TEST RESULT GENERAL LETTER STL STANDARD TITLE: PHYSICIAN LETTERS DATE OF NOTE: DEC 17, 2024@11:20 ENTRY DATE: DEC 17, 2024@11:21:03 AUTHOR: SERA BARAJAS EXP COSIGNER: URGENCY: STATUS: COMPLETED [facility] [address] [place] [address] DEC 17, 2024 MARY GRACE PARSONS [address] [place] [id number] Dear Mary Grace Parsons, I would like to update you on your recent test results. LIPID PROFILE - High cholesterol and triglycerides (lipids) are risk factors for heart disease. Your cholesterol should fall between 140 and 200, and your triglycerides levels should be less than or equal to 150. HDL is the good cholesterol and should ideally be greater than 40. LDL is the bad cholesterol and optimal levels should be less than 100 (near optimal is between 100 and 129). TRIGLYCERIDE 63 mg/dL 12/16/2024 00:00 CHOLESTEROL 90 mg/dL 12/16/2024 00:00 HDL(New) 45 mg/dL 12/16/2024 00:00 CALCULATED LDL 32 mg/dL 12/16/2024 00:00 No DIRECT LDL EO data found These readings are within normal limits. HEMOGLOBIN A1C - Gives us information about your diabetes (sugar or glucose) control over the past 3 months. Your target is to keep your A1C below 0 %. HGA1C 7.3 H % 12/16/2024 These results are abnormal. please reduce intake of sugars and starches CBC - A complete blood count (CBC) gives important information about the kinds and numbers of cells in the blood, especially red blood cells, white blood cells, and platelets. HGB 11.0 L g/dL 08/11/2024 14:37 HEMATOCRIT 34.9 % L (08/11/24 14:37) PLT 291 10*3/uL 08/11/2024 14:37 WHITE BLOOD COUNT 6.0 10*3/uL (08/11/24 14:37) These results are abnormal. you have anemia / please let us know if you have blood in your urine stool etc CHEM 7 - This is important information about the current status of your kidneys, liver, and electrolyte and acid/base balance as well as of your blood sugar and blood proteins. SODIUM 139 mEq/L 12/16/2024 00:00 POTASSIUM 4.0 mEq/L 12/16/2024 00:00 CHLORIDE 102 mEq/L 12/16/2024 00:00 UREA NITROGEN 19.8 mg/dL 12/16/2024 00:00 CREATININE 0.90 mg/dL 12/16/2024 00:00 CALCIUM 10.0 mg/dL 12/16/2024 00:00 CARBON DIOXIDE 26 mEq/L 12/16/2024 00:00 GLUCOSE 167 H mg/dL 12/16/2024 00:00 EGFR (CKD-EPI 2020) 86.9 12/16/2024 00:00 These readings are within normal limits. LIVER FUNCTION PANEL - These are tests for liver function: PROTEIN 7.9 g/dL 12/16/2024 00:00 ALBUMIN 4.2 g/dL 12/16/2024 00:00 TOTAL BILIRUBIN 0.5 mg/dL 12/16/2024 00:00 ALKALINE PHOSPHATASE 133 U/L 12/16/2024 00:00 AST/SGOT 27 U/L 12/16/2024 00:00 ALT/SGPT 16 U/L 12/16/2024 00:00 These readings are within normal limits. FUTURE APPOINTMENTS: 09/29/2025 14:00 [facility] PACT B3 PCP Sincerely, SERA BARAJAS STAFF PHYSICIAN MARY GRACE PARSONS,SERA [facility] Dec 16, 2024 01:33 PM ADDENDUM: LOCAL TITLE: Addendum STANDARD TITLE: ADDENDUM DATE OF NOTE: DEC 16, 2024@13:33:11 ENTRY DATE: DEC 16, 2024@13:33:12 AUTHOR: SERA BARAJAS EXP COSIGNER: URGENCY: STATUS: COMPLETED alerting rncm to fu with pcp re. any records received re. 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 / urologist at [facility] the [facility] concerning his DM wants to continue other rxs as earlier Outside providers: Review of Systems:see PHI Past Medical History: 1) Lumbago 2) DJD 3) Xeroderma 4) DANDRUFF 5) Gout 6) PAGET'S DISEASE 7) Obesity 8) Osteitis deformans (SNOMED CT 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) 9) Low Back Pain 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 11) SURGERY FOLLOW-UP 12) OTHER SEBORRHEIC DERMATITIS 13) CALCANEAL SPUR 14) SKIN ANOMALY NEC 15) FACIAL NERVE DIS NEC 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 17) DISC DISPLACEMENT NOS 18) Unresolved 19) URIN TRACT INFECTION NOS 20) Other General Symptoms (ICD-9-CM 780.9) comment: Episodic loss of consciousness 21) Marital/family problems (ICD-9-CM V61.0) 22) Benign essential hypertension 23) Coronary arteriosclerosis 24) Congestive heart failure 25) Dementia 26) Depression 27) CAD - Coronary artery disease 28) Cardiomyopathy 29) Edema 30) Chronic venous insufficiency 31) Chest pain 32) Finding related to compliance with treatment 33) Gastroenteritis 34) Tick bite 35) Bacterial urinary infection 36) History of cholecystectomy comment: patient reports done in early 2019 37) Diabetes Mellitus Type 2 ([facility] 68880713) 38) Acute Deep Vein Thrombosis of Lower Limb ([facility] [id number]) comment: ER visit [facility] with Dr Max Sevilla 39) Homeless single person 40) Relationship distress with spouse or intimate partner 41) Exposure to potentially hazardous substance 42) Type II diabetes mellitus uncontrolled 43) Hyperlipidemia 44) Overactive bladder 45) Allergic rhinitis 46) Cerebral infarction 47) Normal grief reaction 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 TAKE 30 MINUTES PRIOR TO FOOD. 3) SERTRALINE HCL 50MG TAB TAKE ONE-HALF TABLET BY MOUTH EVERY ACTIVE MORNING Indication: FOR DEPRESSION Active Non-VA Medications Status 1) Non-VA DULAGLUTIDE 1.5MG/0.5ML INJ PEN 1.5MG/0.5ML UNDER THE ACTIVE SKIN EVERY WEEK 2) Non-VA EMPAGLIFLOZIN 5MG/METFORMIN 1000MG TAB 1 TABLET BY ACTIVE MOUTH TWICE A DAY 5 Total Medications Allergies: PENICILLIN, MORPHINE, AMITRIPTYLINE, OXCARBAZEPINE, TRAZODONE, METFORMIN Objective: Physical Exam: VSD - Detailed Vitals Date Vital Measurement Qualifiers 12/15/2024 12:52 Temp F (C) 98 (36.7) Pulse 63 Respir 16 BP 139/74 Ht in (cm) 72 (182.88) Stated Wt lbs (kg)[BMI] 215.8 (97.89)[29*]Actual Pain 0 POx (L/Min)(%) 96 General: Alert and oriented. NAD. Head: Atraumatic. Normocephalic. Eyes: Conjunctiva clear. Nasal: Normal mucosa without discharge. Mouth/Throat: Oral mucosa is pink and moist. Neck: Supple. Cardiovascular: Regular rate and rhythm. No murmurs or extra heart sounds appreciated on auscultation. Respiratory: Breathing is nonlabored on room air. Lungs are clear to auscultation bilaterally. Abdomen: Abdomen is soft, nontender, and non-distended. Extremities: No edema. Neurologic: CN II-XII grossly intact. No focal deficits. LAST CBC/DIFF DONE WITHIN 8 WEEKS: No data available LAB CUMULATIVE SELECTED 2 Collection DT Spec CHOL TRIG CalcLDL HDL a 08/11/2024 14:38 PLASM 98 51 43 45 10/25/2022 09:19 PLASM 95 83 42.4 36.0 L 01/10/2022 13:28 PLASM 78 40 33.0 37.0 L 03/14/2021 13:55 PLASM 92 74 33.2 44.0 H COMMENTS: a. No hemolysis noted. LAB CUMULATIVE SELECTED 1 Collection DT Spec HDL%CHO 10/25/2022 09:19 PLASM 37.9 01/10/2022 13:28 PLASM 47.4 03/14/2021 13:55 PLASM 47.8 PSA PC STL No data available for: PROST. SPECIFIC AG.(PB-STL) No data available for: CREATININE UREA NITROGEN GLUCOSE SODIUM POTASSIUM CHLORIDE CARBON DIOXIDE CALCIUM PROTEIN ALBUMIN TOTAL BILIRUBIN ALKALINE PHOSPHATASE AST/SGOT ALT/SGPT EGFR (CKD-EPI 2020) No data available No data available for: COLONOSCOPY CONSULT REPORT STL SLT - Lab Tests Selected Collection DT Specimen Test Name Result Units Ref Range 08/11/2024 14:37 BLOOD HGA1C 7.1 H % 4.0 - 6.0 12/17/2023 10:30 BLOOD HGA1C 7.6 H % 4.0 - 6.0 04/29/2023 09:16 BLOOD HGA1C 8.5 H % 4.0 - 6.0 Assessment/ plan: Patient gives verbal permission to leave messages on voice mail # typ 2 DM with neuropathy: He is seeing private physician & medications are obtained through private pharmacy. He is using Trulicity 1.5 mg weekly , empagliflozin and some other meds that he could not remember . He did not bring medication list or med bottles for today's appointment. will bring copy of meds to be rxed antidiabetic rxs ct gabapentin pt sees t second miller #Hypertension: Blood pressure controlled, continue same medications #Hyperlipidemia: LDL at goal, continue atorvastatin #Right lower extremity DVT 10/2022: He is on apixaban currently. was Discussed at earlier appoint w previous pcp that he could stop it after 6 months as his DVT was secondary to an injury to the right lower extremity. 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 he is stable on sertaline Denies suicidal or homicidal ideation rtc 6-8 mths [facility] Foot Check - L,N,P,PH,PO,PT,U: A complete foot check was completed at this encounter. VISUAL INSPECTION: Includes inspection for skin breaks, deformity, erythema, trauma, pallor on elevation, dependent rubor, nail deformities, extensive callus and pitting edema. Visual exam results: Normal PEDAL PULSES: Includes palpation of dorsalis and posterior tibial pulses and signs/symptoms of vascular compromise like pain, pallor, parasthesia or paralysis. Present (even if diminished) SENSORY CHECK: Includes 10 gram Monofilament ([place]) test of sensation. Intact (Greater than or equal to 80% of sites checked) Abnormal (Less than 80% of sites checked): Abnormal (decreased or absent sensation to monofilament): HIGH-RISK: HIGH RISK INFORMATION PROVIDED: 1. Advised patient that extra depth footwear with soft molded inserts and braces may be required. 2. Advised patient not to walk barefoot. 3. Explained the importance of daily foot checks. 4. Stressed the importance of daily foot hygiene, including bathing, complete drying and thorough inspection for changes. The patient verbalized understanding and was offered a detailed handout on diabetic foot care. Patient being seen by an outside senior regulatory affairs specialist /january/ SERA BARAJAS STAFF PHYSICIAN Signed: 12/15/2024 14:22 SERA BARAJAS [facility] Dec 15, 2024 01:28 PM PRIMARY CARE INITI AL EVALUATION NOTE: LOCAL TITLE: PRIMARY CARE PROVIDER NEW VISIT STL STANDARD TITLE: PRIMARY CARE INITIAL EVALUATION NOTE DATE OF NOTE: DEC 15, 2024@13:28 ENTRY DATE: DEC 15, 2024@13:29:15 AUTHOR: SERA BARAJAS EXP COSIGNER: URGENCY: STATUS: COMPLETED PRIMARY CARE PROVIDER NEW VISIT STL Has ADDENDA Patient is: new Chief Complaint / Hx of present illness for restablishment - tx from [place] see pvt pcp / forming process worker / urologist at [facility] [place] wants to continue other rxs as earlier Outside providers: Review of Systems:see PHI Past Medical History: 1) Lumbago 2) DJD 3) Xeroderma 4) DANDRUFF 5) Gout 6) PAGET'S DISEASE 7) Obesity 8) Osteitis deformans (SNOMED CT 9027959) 9) Low Back Pain 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 11) SURGERY FOLLOW-UP 12) OTHER SEBORRHEIC DERMATITIS 13) CALCANEAL SPUR 14) SKIN ANOMALY NEC 15) FACIAL NERVE DIS NEC 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 17) DISC DISPLACEMENT NOS 18) Unresolved 19) URIN TRACT INFECTION NOS 20) Other General Symptoms (ICD-9-CM 780.9) comment: Episodic loss of consciousness 21) Marital/family problems (ICD-9-CM V61.0) 22) Benign essential hypertension 23) Coronary arteriosclerosis 24) Congestive heart failure 25) Dementia 26) Depression 27) CAD - Coronary artery disease 28) Cardiomyopathy 29) Edema 30) Chronic venous insufficiency 31) Chest pain 32) Finding related to compliance with treatment 33) Gastroenteritis 34) Tick bite 35) Bacterial urinary infection 36) History of cholecystectomy comment: patient reports done in early 2019 37) Diabetes Mellitus Type 2 ([facility] [id number]) 38) Acute Deep Vein Thrombosis of Lower Limb ([facility] [id number]) comment: ER visit [facility] with Dr Max Sevilla 39) Homeless single person 40) Relationship distress with spouse or intimate partner 41) Exposure to potentially hazardous substance 42) Type II diabetes mellitus uncontrolled 43) Hyperlipidemia 44) Overactive bladder 45) Allergic rhinitis 46) Cerebral infarction 47) Normal grief reaction 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 TAKE 30 MINUTES PRIOR TO FOOD. 3) SERTRALINE HCL 50MG TAB TAKE ONE-HALF TABLET BY MOUTH EVERY ACTIVE MORNING Indication: FOR DEPRESSION Active Non-VA Medications Status 1) Non-VA DULAGLUTIDE 1.5MG/0.5ML INJ PEN 1.5MG/0.5ML UNDER THE ACTIVE SKIN EVERY WEEK 2) Non-VA EMPAGLIFLOZIN 5MG/METFORMIN 1000MG TAB 1 TABLET BY ACTIVE MOUTH TWICE A DAY 5 Total Medications Allergies: PENICILLIN, MORPHINE, AMITRIPTYLINE, OXCARBAZEPINE, TRAZODONE, METFORMIN Objective: Physical Exam: VSD - Detailed Vitals Date Vital Measurement Qualifiers 12/15/2024 12:52 Temp F (C) 98 (36.7) Pulse 63 Respir 16 BP 139/74 Ht in (cm) 72 (182.88) Stated Wt lbs (kg)[BMI] 215.8 (97.89)[29*]Actual Pain 0 POx (L/Min)(%) 96 General: Alert and oriented. NAD. Head: Atraumatic. Normocephalic. Eyes: Conjunctiva clear. Nasal: Normal mucosa without discharge. Mouth/Throat: Oral mucosa is pink and moist. Neck: Supple. Cardiovascular: Regular rate and rhythm. No murmurs or extra heart sounds appreciated on auscultation. Respiratory: Breathing is nonlabored on room air. Lungs are clear to auscultation bilaterally. Abdomen: Abdomen is soft, nontender, and non-distended. Extremities: No edema. Neurologic: CN II-XII grossly intact. No focal deficits. LAST CBC/DIFF DONE WITHIN 8 WEEKS: No data available LAB CUMULATIVE SELECTED 2 Collection DT Spec CHOL TRIG CalcLDL HDL a 08/11/2024 14:38 PLASM 98 51 43 45 10/25/2022 09:19 PLASM 95 83 42.4 36.0 L 01/10/2022 13:28 PLASM 78 40 33.0 37.0 L 03/14/2021 13:55 PLASM 92 74 33.2 44.0 H COMMENTS: a. No hemolysis noted. LAB CUMULATIVE SELECTED 1 Collection DT Spec HDL%CHO 10/25/2022 09:19 PLASM 37.9 01/10/2022 13:28 PLASM 47.4 03/14/2021 13:55 PLASM 47.8 PSA PC STL No data available for: PROST. SPECIFIC AG.(PB-STL) No data available for: CREATININE UREA NITROGEN GLUCOSE SODIUM POTASSIUM CHLORIDE CARBON DIOXIDE CALCIUM PROTEIN ALBUMIN TOTAL BILIRUBIN ALKALINE PHOSPHATASE AST/SGOT ALT/SGPT EGFR (CKD-EPI 2020) No data available No data available for: COLONOSCOPY CONSULT REPORT STL SLT - Lab Tests Selected Collection DT Specimen Test Name Result Units Ref Range 08/11/2024 14:37 BLOOD HGA1C 7.1 H % 4.0 - 6.0 12/17/2023 10:30 BLOOD HGA1C 7.6 H % 4.0 - 6.0 04/29/2023 09:16 BLOOD HGA1C 8.5 H % 4.0 - 6.0 Assessment/ plan: Patient gives verbal permission to leave messages on voice mail # typ 2 DM with neuropathy: He is seeing private physician & medications are obtained through private pharmacy. He is using Trulicity 1.5 mg weekly , empagliflozin and some other meds that he could not remember . He did not bring medication list or med bottles for today's appointment. will bring copy of meds to be rxed antidiabetic rxs ct gabapentin pt sees t second miller #Hypertension: Blood pressure controlled, continue same medications #Hyperlipidemia: LDL at goal, continue atorvastatin #Right lower extremity DVT 10/2022: He is on apixaban currently. was Discussed at earlier appoint w previous pcp that he could stop it after 6 months as his DVT was secondary to an injury to the right lower extremity. 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 he is stable on sertaline Denies suicidal or homicidal ideation rtc 6-8 mths PAVE Foot Check - L,N,P,PH,PO,PT,U: A complete foot check was completed at this encounter. VISUAL INSPECTION: Includes inspection for skin breaks, deformity, erythema, trauma, pallor on elevation, dependent rubor, nail deformities, extensive callus and pitting edema. Visual exam results: Normal PEDAL PULSES: Includes palpation of dorsalis and posterior tibial pulses and signs/symptoms of vascular compromise like pain, pallor, parasthesia or paralysis. Present (even if diminished) SENSORY CHECK: Includes 10 gram Monofilament ([place]a María) test of sensation. Intact (Greater than or equal to 80% of sites checked) Abnormal (Less than 80% of sites checked): Abnormal (decreased or absent sensation to monofilament): HIGH-RISK: HIGH RISK INFORMATION PROVIDED: 1. Advised patient that extra depth footwear with soft molded inserts and braces may be required. 2. Advised patient not to walk barefoot. 3. Explained the importance of daily foot checks. 4. Stressed the importance of daily foot hygiene, including bathing, complete drying and thorough inspection for changes. The patient verbalized understanding and was offered a detailed handout on diabetic foot care. Patient being seen by an outside senior regulatory affairs specialist /january/ SERA BARAJAS STAFF PHYSICIAN Signed: 12/15/2024 14:22 12/16/2024 ADDENDUM STATUS: COMPLETED alerting rncm to fu with pcp re. any records received re. diabetic rxs that pt requests from the dc /january/ SERA BARAJAS STAFF PHYSICIAN Signed: 12/16/2024 13:33 Receipt Acknowledged By: 12/17/2024 15:06 /YOKASTA Irvin, RN REGISTERED NURSE 12/17/2024 ADDENDUM STATUS: COMPLETED Called [phone] re: obtaining diabetic meds through [place] Two patient identifiers obtained: Full name and . Informed pt to have Provider's office sent most recent office visit notes/med list faxed to this clinic to the attention of Dr. Barajas. Provided fax number. All questions answered and call mutually ended. Provided contact information to return call at [phone], option 2 for further questions/concerns. /YOKASTA Irvin, RN REGISTERED NURSE Signed: 12/17/2024 15:08 SERA BARAJAS [facility] Dec 15, 2024 12:56 PM NURSING NOTE: LOCAL TITLE: V15 PACT FACE TO FACE NOTE STL STANDARD TITLE: NURSING NOTE DATE OF NOTE: DEC 15, 2024@12:56 ENTRY DATE: DEC 15, 2024@12:56:12 AUTHOR: SANKET MILLER COSIGNER: URGENCY: STATUS: COMPLETED Provider Visit: Patient Identifiers : Full Name Date of Reason for visit: New Patient Do you have a history of any of the following? (check all that apply): Diabetes, Hypertension, Other:stroke, GERD, irregular heart beat Surgeries (type(s) and date(s)): pacemaker, bladder surgery Have you been seen by a physician, [facility] or private, in the last year? Yes Name and contact information for provider: [facility] Vinicio/Krista Mancia Have you been hospitalized or seen in an ER in the last year? Yes What hospital(s) or ERs and approximate date(s)? [facility] UTI Records request sent: Have you had a colonoscopy previously? Yes What location and approximate date(s)? [facility] Records request sent: Have you had a PAP smear previously? N/A Have you had a Mammogram previously? No Mode of Arrival: Ambulatory Allergy Review: PENICILLIN, MORPHINE, AMITRIPTYLINE, OXCARBAZEPINE, TRAZODONE, METFORMIN Allergy list reviewed and remains current. Recent Vital Signs: Temperature: 98 F [36.7 C] (12/15/2024 12:52) Pulse: 63 (12/15/2024 12:52) Respiration: 16 (12/15/2024 12:52) B/P: 139/74 (12/15/2024 12:52) Pain: 0 (12/15/2024 12:52) Wt: 215.8 lb [97.89 kg] (12/15/2024 12:52) Ht: 72 in [182.9 cm] (12/15/2024 12:52) BMI: 29.3 POX: 96% (12/15/2024 12:52) Blood sugar glucometer readin PERSONAL HEALTH INVENTORY Notes: No data available for PHI note titles PERSONAL HEALTH INVENTORY - MAP: 01/01/2024 Personal Health Plan [place], [place], Purpose (MAP) states Relaxing and fishing being outdoors What matters most to you in your life right now? - [place]'s Response: fishing WHOLE HEALTH SHARED GOALS: PERSONAL HEALTH PLAN - SHARED GOALS: 01/01/2024 [facility] Shared Goals states keep me going SHARED GOALS keep going Would you like to discuss any personal problem, family problem, alcohol use, drug use, or a mental or emotional illness? No Contact provided Primary Care phone number and encouraged to call if any questions or concerns. Review that after hours nurse line [phone] and emergency room are available 15/04 for patient use. Contact verbalized good understanding. Suicide Screen - V: C-SSRS Screening [place] Suicide Severity Rating Scale (C-SSRS) screener 1. Over the past month, have you wished you were or wished you could go to sleep and not wake up? No 2. Over the past month, have you had any actual thoughts of killing yourself? No 3. Over the past month, have you been thinking about how you might do this? Response not required due to responses to other questions. 4. Over the past month, have you had these thoughts and had some intention of acting on them? Response not required due to responses to other questions. 5. Over the past month, have you started to work out or worked out the details of how to kill yourself? Response not required due to responses to other questions. 6. If yes, at any time in the past month did you intend to carry out this plan? Response not required due to responses to other questions. 7. In your lifetime, have you ever done anything, started to do anything, or prepared to do anything to end your life (for example, collected pills, obtained a gun, gave away valuables, went to the roof but didn't jump)? No 8. If YES, was this within the past 3 months? Response not required due to responses to other questions. Sexual Orientation - CP,L,N,P,PH,PS,S,U: The patient thinks of their sexual orientation as: Straight or Heterosexual Depression Screening - V: Perform PHQ-2 A PHQ-2 screen was performed. The score was 0 which is a negative screen for depression. Over the past two weeks, how often have you been bothered by the following problems? 1. Little interest or pleasure in doing things Not at all 2. Feeling down, depressed, or hopeless Not at all Frail/Elderly Screen: ADL Screen - [place] Index of [place] in Activities of Daily Living Bathing: (3 Points) Receives no assistance (gets in and out of tub by self, if tub is usual means of bathing) Dressing: (3 Points) Gets clothes and gets completely dressed without assistance. Toileting: (3 Points) Goes to toilet room , cleans self, and arranges clothes without assistance (may use object for support such as cane, walker, or wheelchair, and may manage own night bedpan or commode, emptying same next morning) Transferring: (3 Points) Moves in and out of bed and in and out of chair without assistance (may be using object for support, such as cane or walker) Continence: (1 Point) Supervision helps keep urine or bowel control, catheter is used, or person is incontinent Feeding: (3 Points) Feeds self without assistance Total Score: 16 Points 18 = High (patient independent) 6 = Low (patient very dependent) IADL Screen - [place] Instrumental Activities of Daily Living Scale Ability to use telephone: (1 point) Operates Telephone on own initiative; looks up and dials numbers. Shopping: (1 point) Takes care of all shopping needs independently. Food preparation: (1 point) Plans, prepares, and serves adequate meals independently. Housekeeping: (1 point) Maintains house alone with occasional assistance (heavy work). Laundry: (1 point) Does personal laundry completely. Mode of transportation: (1 point) Travels independently on public transportation or drives own car. Responsibility for own medications: (0 points) Takes responsibility if medication is prepared in advance in separate dosages. Ability to handle finances: (1 point) Manages financial matters independently (budgets, writes checks, pays rent and bills, goes to bank); collects and keeps track of income. Total score: 7 points 8 = High function, independent 0 = Low function, dependent Falls Screen: Two or more falls within the last 12 months. Incontinence Screen: YES - Incontinence is a problem for this patient. Is urinary incontinence NEW for this patient? NO - Incontinence is NOT a new problem. What is the current treatment? has an indwelling catheter COVID-19 Immunization - L,N,P,PH,U: Refused Pfizer Monovalent COVID-19 vaccine Immunization: COVID-19 (PFIZER), MRNA, LNP-S, PF, PEYTON-SUCROSE, 30 MCG/0.3 ML (AGES 12+ YEARS) Refusal Reason: PATIENT DECISION Patient refuses all immunization(s) in the COVID-19 group Date Documented: 12/15/24 13:16 Influenza Immunization - L,N,P,PH,U: Deferral / Refusal The patient declines to receive the recommended dose of seasonal influenza vaccine. Immunization: INFLUENZA, UNSPECIFIED FORMULATION Refusal Reason: PATIENT DECISION Patient refuses all immunization(s) in the FLU group Date Documented: 12/15/24 13:16 Herpes Zoster (Shingles) Vaccine - L,N,P,PH,U: The patient declines to receive the recommended dose of zoster (shingles) vaccine. Immunization: ZOSTER RECOMBINANT Refusal Reason: PATIENT DECISION Patient refuses all immunization(s) in the ZOSTER group Date Documented: 12/15/24 13:16 Pneumococcal PPSV23 (Pneumovax) - L,N,P,PH,U: The patient declines to receive the recommended dose of PPSV23 vaccine. Immunization: PNEUMOCOCCAL POLYSACCHARIDE PPV23 Refusal Reason: PATIENT DECISION Patient refuses all immunization(s) in the PneumoPPV group Date Documented: 12/15/24 13:17 Tdap Immunization - L,N,P,PH,U: The patient declines to receive the recommended dose of Tdap vaccine. Immunization: TDAP Refusal Reason: PATIENT DECISION Patient refuses all immunization(s) in the TDAP group Date Documented: 12/15/24 13:17 /january/ SANKET MILLER LPN LICENSED PRACTICAL NURSE Signed: 12/15/2024 13:21 SANKET MILLER [facility]
--- OUTSIDE RECORDS SUMMARY | 2025-01-15 04:25 | XMS_ITS | Encounter Summary ---
Author Name [facility] [place] [facility] [place] [facility] [place] Address [address] [place] [address] Care Team Providers Care Golf Club Manager Name Role Phone TI JOSHUA Primary Care [...] Robles's Name Patient's Relationship to Policy Robles [facility] (WNR) MEDICARE ADVANTAGE [facility] (WNR) Aug 23, 2023 [id number] MARY GRACE CASEY PATIENT [facility] (WNR) MEDICARE ADVANTAGE [facility] (R) Nov 21, 2021 [id number] [phone] MARY GRACE CASEY PATIENT MEDICAID (WN) MEDICAID MEDIC AID ([facility]) Sep 23, 2016 MEDICAI D [id number] [phone] MARY GRACE CASEY PATIENT MEDICARE (WNR) MEDICARE (M) PART B Apr 23, 2007 PART B [id number] MARY GRACE CASEY PATIENT MEDICARE (WNR) MEDICARE (M) PART B Apr 23, 2007 PART B [id number] MARY GRACE CASEY PATIENT MEDICARE (WNR) MEDICARE (M) PART A Dec 22, 2005 PART A [id number] MARY GRACE CASEY PATIENT MEDICARE (WNR) MEDICARE (M) PART A Dec 22, 2005 PART A [id number] IRISHLEATHAMARY GRACE HEBERT PATIENT MEDICARE PART D (WNR) MEDICARE (M) PART D Nov 21, 2021 PART D [id number] VAUGHNMARY GRACE HEBERT [facility] (WNR) MEDICARE ADVANTAGE [facility] (WNR) Nov 21, 2021 [id number] MARY GRACE CASEY [facility] (WNR) MEDICARE ADVANTAGE [facility] (WNR) Nov 21, 2021 [id number] [phone] IRISHLEATHAMARY GRACE HEBERT [facility] VISION VISION SPECT ERA VISIO N Sep 23, 2022 [id number] [phone] MARY GRACE CASEY PATIENT Selected Encounter This section includes the information on record at [place] for the Encounter. Date/Time Encounter Type Encounter Description Reason Pro vider Source IHE Encounter Template Text not used by [place] Advance Directives: All historical and current Section Date Range: From patient's date of to the date document was created. This section includes ALL of a patient's completed or amended [place] Advance and Rescinded Directives. The entries below indicate that a directive exists for the patient, but an actual copy is not included with this document. The data comes from all [place] facilities. Date Advance Directives Provider Source Jun 02, 1997 ADVANCE DIRECTIVE MARILYN BARRERA [facility]
--- OUTSIDE RECORDS SUMMARY | 2025-01-15 04:25 | XMS_ITS | Encounter Summary ---
Author Name [facility] [place] [facility] [place] Address [address] [place] [address] Care Team Providers Care Special Needs Teacher Name Role Phone TI JOSHUA Primary Care [...] Robles's Name Patient's Relationship to Policy Robles [facility] (WNR) MEDICARE ADVANTAGE [facility] ([facility]) Aug 23, 2023 [id number] MARY GRACE CASEY PATIENT [facility] (WNR) MEDICARE ADVANTAGE [facility] ([facility]) Nov 21, 2021 [id number] MARY GRACE CASEY PATIENT MEDICAID ([facility]) MEDICAID MEDIC AID ([facility]) Sep 23, 2016 MEDICAI D [id number] [phone] MARY GRACE CASEY PATIENT MEDICARE (WNR) MEDICARE (M) PART B Apr 23, 2007 PART B [id number] MARY GRACE CASEY PATIENT MEDICARE (WNR) MEDICARE (M) PART B Apr 23, 2007 PART B [id number] MARY GRACE CASEY PATIENT MEDICARE (WNR) MEDICARE (M) PART A Dec 22, 2005 PART A [id number] MARY GRACE CASEY PATIENT MEDICARE (WNR) MEDICARE (M) PART A Dec 22, 2005 PART A [id number] [phone] MARY GRACE CASEY PATIENT MEDICARE PART D (WNR) MEDICARE (M) PART D Nov 21, 2021 PART D [id number] MARY GRACE CASEY [facility] (WNR) MEDICARE ADVANTAGE [facility] (WNR) Nov 21, 2021 [id number] MARY GRACE CASEY [facility] (WNR) MEDICARE ADVANTAGE [facility] (WNR) Nov 21, 2021 [id number] [phone] MARY GRACE CASEY [facility] VISION VISION SPECT ERA VISIO N Sep 23, 2022 [id number] [phone] MARY GRACE CASEY PATIENT Selected Encounter This section includes the information on record at [place] for the Encounter. Date/Time Encounter Type Encounter Description Reason Pro vider Source Dec 15, 2024 11:30 AM Outpatient Encounter CLINICAL PHARMACY IHE Encounter Template Text not used by [place] Lab Results: +/- 30 days of the encounter This section includes the Chemistry and Hematology Lab Results on record with [place] for the patient. Radiology Reports and Pathology Reports are provided separately, in subsequent sections. Lab Results This section contains the Chemistry/Hematology Results that were resulted 30 days before or 30 daysafter the date of the Encounter. Date/Time Source Result Type Result - Unit Interpretation Reference Range Specimen Type Comment Dec 16, 2024 12:00 AM [facility] HGA1C BLOOD Specimen Type: BLOOD No comment entered. Ordering Provider: SERA ISSA Report Released Date/Time: Dec 11, 2024 04:22 PM Reporting Lab: [facility] [address] [facility] [address] Performing Lab: [facility] [address] [address] HGA1C 7.3 H 4.0-6.0 Dec 16, 2024 12:00 AM [facility] LIPID PANEL (STL) PLASMA Specimen Type: PLASM A Comment: No hemolysis noted. Ordering Provider: SERA ISSA Report Released Date/Time: Dec 11, 2024 04:22 PM Reporting Lab: [facility] [address] [address] Performing Lab: [address] [address] CHOLESTEROL 90 mg/dL 0-200 TRIGLYCERIDE 63 mg/dL 0-150 CALCULATED LDL 32 mg/dL HDL(New) 45 mg/dL >40 Dec 16, 2024 12:00 AM [facility] MICRAL/CREAT PROFILE (STL) URINE Specimen Typ e: URINE No comment entered. Ordering Provider: SREA ISSA Report Released Date/Time: Dec 11, 2024 04:22 PM Reporting Lab: [facility] [address] [place] [id number] Performing Lab: [address] [address] URINE ALBUMIN (PB-STL) 226.8 mg/L uACR (STL) 422 mg/g H 0-29 CREATININE URINE/OTHERS 53.7 mg/dL L 63-16 6 Dec 16, 2024 12:00 AM [facility] COMPREHENSIVE METABOLIC PANEL PLASMA Specimen Type: PLASMA Comment: No hemolysis noted. Ordering Provider: SERA ISSA Report Released Date/Time: Dec 11, 2024 04:22 PM Reporting Lab: [facility] [address] [facility] [address] Performing Lab: [address] [address] CREATININE 0.90 mg/dL 0.7-1.3 UREA NITROGEN 19.8 [...] 16 96 0 72 215.8 29 [facility] Social History: Smoking Status (Most current) and Tobacco Use (All prior to encounter date) This section includes the most current, and the historical, smoking and tobacco- related health factors from the [place] facility where the Encounter took place. Current Smoking Status This section includes the most current smoking, or tobacco-related health factor, from the [place] facility where the Encounter took place. Date/Time Current Smoking Status Comment Tomy ity Apr 09, 2023 09:00 AM [place]-TOBACCO FORMER USER [facility] Tobacco Use History This section includes a history of the smoking, or tobacco-related health factors, that were collected on or before the date of the Encounter. The data comes from the [place] facility where the Encounter took place. Date/Time Smoking Status/Tobacco Use Comment F acility Apr 09, 2023 09:00 AM [place]-TOBACCO QUIT 15 YRS OR MORE [facility] Advance Directives: All historical and current Section Date Range: From patient's date of to the date document was created. This section includes ALL of a patient's completed or amended [place] Advance and Rescinded Directives. The entries below indicate that a directive exists for the patient, but an actual copy is not included with this document. The data comes from all [place] facilities. Date Advance Directives Provider Source Jun 02, 1997 ADVANCE DIRECTIVE MARILYN BARRERA [facility] Encounter Notes: All associated encounter notes This section contains the clinical notes associated to the Encounter. Date/Time Encounter Note(s) Provider Source Dec 15, 2024 11:08 AM ADMINISTRATIVE NOT E: LOCAL TITLE: ADMINISTRATIVE STL STANDARD TITLE: ADMINISTRATIVE NOTE DATE OF NOTE: DEC 15, 2024@11:08 ENTRY DATE: DEC 15, 2024@11:08:14 AUTHOR: ELISE ANNE EXP COSIGNER: URGENCY: STATUS: COMPLETED Unable to reach pt x3 to discuss cancellation of 1130am pharmacy appointment d/t overbooked clinic. Additionally patient already completed pharmacy intake appointment 07/23/24. Left voicemail at 8am and have not received return call to clinic. /january/ Elise Anne PharmD CLINICAL PROFESSIONAL PROGRAMMER ANALYST Signed: 12/15/2024 11:10 ELISE ANNE [facility]
--- OUTSIDE RECORDS SUMMARY | 2025-01-15 04:25 | XMS_ITS | Encounter Summary ---
Author Organization [facility] Address 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
--- OUTSIDE RECORDS SUMMARY | 2025-01-15 04:25 | XMS_ITS ---
Author Name [place] Address [address] [place] [address] Care Team Providers Care Information Engineer Name Role Phone TI JOSHUA Primary Care [...] Robles's Name Patient's Relationship to Policy Robles [facility] (WNR) MEDICARE ADVANTAGE [facility] (WNR) Aug 23, 2023 [id number] MARY GRACE CASEY PATIENT [facility] (WNR) MEDICARE ADVANTAGE [facility] (WNR) Nov 21, 2021 [id number] MARY GRACE CASEY PATIENT MEDICAID (WNR) MEDICAID MEDIC AID (WNR) Sep 23, 2016 MEDICAI D [id number] EMILY McnairMARY GRACE PATIENT MEDICARE (WNR) MEDICARE (M) PART B Apr 23, 2007 PART B [id number] IRISHLEATHAMARY GRACE HEBERT PATIENT MEDICARE (WNR) MEDICARE (M) PART B Apr 23, 2007 PART B [id number] EMILY McnairMARY GRACE PATIENT MEDICARE (WNR) MEDICARE (M) PART A Dec 22, 2005 PART A [id number] VAUGHNMARY GRACE HEBERT PATIENT MEDICARE (WNR) MEDICARE (M) PART A Dec 22, 2005 PART A [id number] EMILY McnairMARY GRACE PATIENT MEDICARE PART D (WNR) MEDICARE (M) PART D Nov 21, 2021 PART D [id number] [facility]IC[facility] ADVANTAGE [facility] (WNR) Nov 21, 2021 [id number] EMILY MARY GRACE Mcnair [facility] (WNR) MEDICARE ADVANTAGE [facility] (WNR) Nov 21, 2021 [id number] [phone] [facility] V[facility] VISION SPECT ERA VISIO N Sep 23, 2022 [id number] [phone] EMILY McnairMARY GRACE PATIENT Selected Encounter This section includes the information on record at [place] for the Encounter. Date/Time Encounter Type Encounter Description Reason Pro vider Source Aug 05, 2024 01:00 PM Outpatient Encounter PRIMARY CARE/MEDICINE IHE Encounter Template Text not used by [place] Plan of Treatment: Future Appointments (+ 6 months) and Future Tests (+/- 45 days) The Plan of Treatment section includes future care activities for the patient from all [place] treatmentfacilities. This section includes future appointments and future orders which are active, pending or scheduled. Future Appointments This section includes appointments that were scheduled to occur 6 months from the date of the Encounter, up to a maximum of 20 appointments. The data comes from all [place] treatment facilities. Appointment Date/Time Appointment Type Appointme nt Facility Name Aug 25, 2024 01:00 PM AMBULATORY - MEDICINE [facility] Dec 15, 2024 01:00 PM [facility]ULATORY - [facility]ICINE [facility] Dec 15, 2024 02:00 PM AMBULATORY - NONE [facility] Lab Results: +/- 30 days of the encounter This section includes the Chemistry and Hematology Lab Results on record with [place] for the patient. Radiology Reports and Pathology Reports are provided separately, in subsequent sections. Lab Results This section contains the Chemistry/Hematology Results that were resulted 30 days before or 30 daysafter the date of the Encounter. Date/Time Source Result Type Result - Unit Interpretation Reference Range Specimen Type Comment Aug 11, 2024 02:37 PM [facility] LIPID PANEL (STL) PLASMA Specimen Type: PLASMA Comment: No hemolysis noted. Ordering Provider: JEANINE CARDENAS Report Released Date/Time: Aug 11, 2024 02:09 PM Reporting Lab: [facility] [address] [facility] [address] Performing Lab: [facility] [address] [place] [phone] CHOLESTEROL 98 mg/dL 0-200 TRIGLYCERIDE 51 mg/dL 0-150 CALCULATED LDL 43 mg/dL HDL(New) 45 mg/dL >40 Aug 11, 2024 02:37 PM [facility] TSH (MA-PB) SERUM Specimen Type: SERUM No comment entered. Ordering Provider: JEANINE CARDENAS Report Released Date/Time: Aug 11, 2024 02:09 PM Reporting Lab: [facility] [address] [facility] [address] Performing Lab: [facility] [address] [facility] [address] TSH 3.281 u[IU]/mL 0.47-5 Aug 11, 2024 02:37 PM [facility] HGA1C BLOOD Specimen Type: BLOOD No comment entered. Ordering Provider: JEANINE CARDENAS Report Released Date/Time: Aug 11, 2024 02:09 PM Reporting Lab: [facility] [address] [facility] [address] Performing Lab: [facility] [address] [facility] [address] HGA1C 7.1 H 4.0-6.0 Aug 11, 2024 02:37 PM [facility] VITAMIN D, 25-HYDROXY SERUM Specimen Type: SE RUM No comment entered. Ordering Provider: JEANINE CARDENAS Report Released Date/Time: Aug 11, 2024 02:09 PM Reporting Lab: [facility] [address] [facility] [address] Performing Lab: [facility] [address] [facility] [address] VITAMIN D, 25-HYDROXY 31.4 ng/mL 30-96 Aug 11, 2024 02:37 PM [facility] B12 SERUM Specimen Type: SERUM No comment entered. Ordering Provider: JEANINE CARDENAS Report Released Date/Time: Aug 11, 2024 02:09 PM Reporting Lab: [facility] [address] [facility] [address] Performing Lab: [facility] [address] [place] [phone] B12 400 pg/mL [phone] Aug 11, 2024 02:37 PM [facility] COMPREHENSIVE METABOLIC PANEL PLASMA Specimen Type: PLASMA Comment: No hemolysis noted. Ordering Provider: JEANINE CARDENAS Report Released Date/Time: Aug 11, 2024 02:09 PM Reporting Lab: [facility] [address] [facility] [address] Performing Lab: [facility] [address] [place] [phone] CREATININE 1.18 mg/dL 0.7-1.3 UREA NITROGEN 23.5 [...] 63.2 >60 Aug 11, 2024 02:37 PM [facility] CBC BLOOD Specimen Type: BLOOD No comment entered. Ordering Provider: JEANINE CARDENAS Report Released Date/Time: Aug 11, 2024 02:09 PM Reporting Lab: [facility] [address] [facility] [address] Performing Lab: [facility] [address] [facility] [address] WBC 6.0 10*3/uL 3.6-11.2 RBC 3.92 10*6/uL [...] 0.00-0. 20 Aug 11, 2024 01:43 PM [facility] GLUCOSE,BLOOD-poct (STL) BLOOD Specimen Type: BLOOD Comment: Test Performed by: [id number] Meter #: [id number] Ordering Provider: JEANINE CARDENAS Report Released Date/Time: Aug 12, 2024 09:59 AM Reporting Lab: [facility] [address] [facility] [address] Performing Lab: [facility] [address] [place] [phone] GLUCOSE,BLOOD-poct (STL) 100 mg/dL H 72-99 Social History: Smoking Status (Most current) and Tobacco Use (All prior to encounter date) This section includes the most current, and the historical, smoking and tobacco- related health factors from the [place] facility where the Encounter took place. Current Smoking Status This section includes the most current smoking, or tobacco-related health factor, from the [place] facility where the Encounter took place. Date/Time Current Smoking Status Comment Facil ity Jul 23, 2024 01:30 PM VA-TOBACCO FORMER USER [facility] Tobacco Use History This section includes a history of the smoking, or tobacco-related health factors, that were collected on or before the date of the Encounter. The data comes from the [place] facility where the Encounter took place. Date/Time Smoking Status/Tobacco Use Comment F acility Jul 23, 2024 01:30 PM [place]-TOBACCO QUIT 15 YRS OR MORE [facility] Advance Directives: All historical and current Section Date Range: From patient's date of to the date document was created. This section includes ALL of a patient's completed or amended [place] Advance and Rescinded Directives. The entries below indicate that a directive exists for the patient, but an actual copy is not included with this document. The data comes from all [place] facilities. Date Advance Directives Provider Source Jun 02, 1997 ADVANCE DIRECTIVE MARILYN BARRERA [facility]
--- OUTSIDE RECORDS SUMMARY | 2025-01-15 04:25 | XMS_ITS | Encounter Summary ---
Author Name [facility] [place] Address [address] [place] [address] Care Team Providers Care Senior Consumer Insights Consultant Name Role Phone TI JOSHUA Primary Care [...] Robles's Name Patient's Relationship to Policy Robles [facility] (WNR) MEDICARE ADVANTAGE [facility] (WNR) Aug 23, 2023 [id number] [phone] MARY GRACE CASEY PATIENT [facility] (WNR) MEDICARE ADVANTAGE [facility] (WNR) Nov 21, 2021 [id number] MARY GRACE CASEY PATIENT MEDICAID (WNR) MEDICAID MEDIC AID (WNR) Sep 23, 2016 MEDICAI D [id number] VAUGHNMARY GRACE HEBERT PATIENT MEDICARE (WNR) MEDICARE (M) PART B Apr 23, 2007 PART B [id number] MARY GRACE CASEY PATIENT MEDICARE (WNR) MEDICARE (M) PART B Apr 23, 2007 PART B [id number] [phone] EMILY MARY GRACE Mcnair PATIENT MEDICARE (WNR) MEDICARE (M) PART A Dec 22, 2005 PART A [id number] [phone] MARY GRACE CASEY PATIENT MEDICARE (WNR) MEDICARE (M) PART A Dec 22, 2005 PART A [id number] [phone] EMILY MARY GRACE Mcnair PATIENT MEDICARE PART D (WNR) MEDICARE (M) PART D Nov 21, 2021 PART D [id number] [facility] AD[facility] (WNR) Nov 21, 2021 [id number] [phone] IRISHMONSEMARY GRACE Spears [facility] (WNR) MEDICARE ADVANTAGE [facility] (WNR) Nov 21, 2021 [id number] [phone] [facility] VISION VISION SPECT ERA VISIO N Sep 23, 2022 [id number] [phone] EMILY McnairMARY GRACE PATIENT Selected Encounter This section includes the information on record at [place] for the Encounter. Date/Time Encounter Type Encounter Description Reason Provider Source Jul 17, 2024 02:59 PM Outpatient Encounter [facility] Encounter Template Text not used by [place] Plan of Treatment: Future Appointments (+ 6 months) and Future Tests (+/- 45 days) The Plan of Treatment section includes future care activities for the patient from all [place] treatmentfacilities. This section includes future appointments and future orders which are active, pending or scheduled. Future Appointments This section includes appointments that were scheduled to occur 6 months from the date of the Encounter, up to a maximum of 20 appointments. The data comes from all [place] treatment facilities. Appointment Date/Time Appointment Type Appointme nt Facility Name Jul 23, 2024 01:30 PM AMBULATORY - NONE [facility] Aug 05, 2024 01:00 PM AMBULATORY - MEDICINE [facility] Aug 25, 2024 01:00 PM AMBULATORY - MEDICINE [facility] Dec 15, 2024 01:00 PM AMBULATORY - MEDICINE [facility] Dec 15, 2024 02:00 PM [facility]ULATORY - NONE [facility] Lab Results: +/- 30 days of the encounter This section includes the Chemistry and Hematology Lab Results on record with [place] for the patient. Radiology Reports and Pathology Reports are provided separately, in subsequent sections. Lab Results This section contains the Chemistry/Hematology Results that were resulted 30 days before or 30 daysafter the date of the Encounter. Date/Time Source Result Type Result - Unit Interpretation Reference Range Specimen Type Comment Aug 11, 2024 02:37 PM [facility] LIPID PANEL (STL) PLASMA Specimen Type: PLASMA Comment: No hemolysis noted. Ordering Provider: JEANINE CARDENAS Report Released Date/Time: Aug 11, 2024 02:09 PM Reporting Lab: [facility] [address] [facility] [address] Performing Lab: [facility] [address] [facility] [address] CHOLESTEROL 98 mg/dL 0-200 TRIGLYCERIDE 51 mg/dL 0-150 CALCULATED LDL 43 mg/dL HDL(New) 45 mg/dL >40 Aug 11, 2024 02:37 PM [facility] TSH (MA-PB) SERUM Specimen Type: SERUM No comment entered. Ordering Provider: JEANINE CARDENAS Report Released Date/Time: Aug 11, 2024 02:09 PM Reporting Lab: [facility] [address] [facility] [address] Performing Lab: [facility] [address] [facility] [address] TSH 3.281 u[IU]/mL 0.47-5 Aug 11, 2024 02:37 PM [facility] HGA1C BLOOD Specimen Type: BLOOD No comment entered. Ordering Provider: JEANINE CARDENAS Report Released Date/Time: Aug 11, 2024 02:09 PM Reporting Lab: [facility] [address] [facility] [address] Performing Lab: [facility] [address] [facility] [address] HGA1C 7.1 H 4.0-6.0 Aug 11, 2024 02:37 PM [facility] VITAMIN D, 25-HYDROXY SERUM Specimen Type: SE RUM No comment entered. Ordering Provider: JEANINE CARDENAS Report Released Date/Time: Aug 11, 2024 02:09 PM Reporting Lab: [facility] [address] [place] [phone] Performing Lab: [facility] [address] [place] [phone] VITAMIN D, 25-HYDROXY 31.4 ng/mL 30-96 Aug 11, 2024 02:37 PM [facility] B12 SERUM Specimen Type: SERUM No comment entered. Ordering Provider: JEANINE CARDENAS Report Released Date/Time: Aug 11, 2024 02:09 PM Reporting Lab: [address] [address] Performing Lab: [address] [address] B12 400 pg/mL [phone] Aug 11, 2024 02:37 PM [facility] COMPREHENSIVE METABOLIC PANEL PLASMA Specimen Type: PLASMA Comment: No hemolysis noted. Ordering Provider: JEANINE CARDENAS Report Released Date/Time: Aug 11, 2024 02:09 PM Reporting Lab: [address] [address] Performing Lab: [address] [address] CREATININE 1.18 mg/dL 0.7-1.3 UREA NITROGEN 23.5 [...] 63.2 >60 Aug 11, 2024 02:37 PM [facility] CBC BLOOD Specimen Type: BLOOD No comment entered. Ordering Provider: JEANINE CARDENAS Report Released Date/Time: Aug 11, 2024 02:09 PM Reporting Lab: [facility] [address] [facility] [address] Performing Lab: [facility] [address] [facility] [address] WBC 6.0 10*3/uL 3.6-11.2 RBC 3.92 10*6/uL [...] 0.00-0. 20 Aug 11, 2024 01:43 PM [facility] GLUCOSE,BLOOD-poct (STL) BLOOD Specimen Type: BLOOD Comment: Test Performed by: [id number] Meter #: [id number] Ordering Provider: JEANINE CARDENAS Report Released Date/Time: Aug 12, 2024 09:59 AM Reporting Lab: [facility] [address] [facility] [address] Performing Lab: [facility] [address] [facility] [address] GLUCOSE,BLOOD-poct (STL) 100 mg/dL H 72-99 Social History: Smoking Status (Most current) and Tobacco Use (All prior to encounter date) This section includes the most current, and the historical, smoking and tobacco- related health factors from the [place] facility where the Encounter took place. Current Smoking Status This section includes the most current smoking, or tobacco-related health factor, from the [place] facility where the Encounter took place. Date/Time Current Smoking Status Comment Facil ity Apr 25, 2020 01:08 PM VA-TOBACCO QUIT 15 YRS OR MORE [facility] Tobacco Use History This section includes a history of the smoking, or tobacco-related health factors, that were collected on or before the date of the Encounter. The data comes from the [place] facility where the Encounter took place. Date/Time Smoking Status/Tobacco Use Comment F acility Apr 25, 2020 01:08 PM VA-TOBACCO QUIT 15 YRS OR MORE [facility] Dec 10, 2002 02:47 PM LIFETIME NON-TOBACCO USER [facility] Nov 13, 2001 02:50 PM CURRENT NON-TOBACC O USER-HX OF USE [facility] Mar 18, 2001 08:35 AM CURRENT NON-TOBACC O USER-RECENTLY QUIT stopped long ago [facility] Mar 18, 2001 08:35 AM TOBACCO USE stopped long ago [facility] Dec 03, 2000 01:44 PM CURRENT NON-TOBACC O USER-HX OF USE pt quit 15 yrs ago. [facility] Dec 03, 2000 01:44 PM PREVIOUS SMOKER [facility] Advance Directives: All historical and current Section Date Range: From patient's date of to the date document was created. This section includes ALL of a patient's completed or amended [place] Advance and Rescinded Directives. The entries below indicate that a directive exists for the patient, but an actual copy is not included with this document. The data comes from all [facility]. Date Advance Directives Provider Source Jun 02, 1997 ADVANCE DIRECTIVE MARILYN BARRERA [facility] Encounter Notes: All associated encounter notes This section contains the clinical notes associated to the Encounter. Date/Time Encounter Note(s) Provider Source Jul 04, 2024 02:59 PM NONVA NOTE: LOCAL TITLE: COMMUNITY CARE-COURTNEY SELF PRESENTING CARE COORD PLAN STANDARD TITLE: NONVA NOTE DATE OF NOTE: JUL 04, 2024@14:59 ENTRY DATE: JUL 17, 2024@14:59:53 AUTHOR: CAIO GALVAN EXP COSIGNER: URGENCY: STATUS: COMPLETED COMMUNITY CARE-COURTNEY SELF PRESENTING CARE COORD PLAN 657 STL Has ADDENDA Emergency Notification Intake Date Presenting to the Facility: Jun Method of Contact: Submitted to Centralized Call Center Notification ID: [id number] [facility] Referral #: [id number] Clinical Review [facility] Name: Hospital: [facility] Address: [facility]: [place] State: [place] Zip Code: Phone : [facility] Facility Point of Contact: Name: Phone: Chief complaint: syncope Primary Diagnosis: Disposition Discharged Date of discharge: Jun Discharge to home [place] records sent [facility] to [facility]. Records sent to [facility] for expedited upload. [facility] alerted via [employer] for eligibility review. No further records available. Alerting PCP team to this note for continuity of care. EXPERT FROM ER DISCHARGE NOTE BELOW Hospital Course: Patient is a 78-year-old male with a PMHx: Of type 2 diabetes, GERD, history of DVT on Eliquis, ongoing hematuria presented to the emergency room with complaint of syncopal episode. Patient states he return from a today, he reports going in to use the bathroom, when he awoke to being on the floor. He is unable to recall any more details of the episode. He reports this was his 2nd episode syncope.ED Work-up reveals: Initial vitals: b/p 110/54, rr 18, pr 63 sp02 % 99 on RA T: 98.9, A&O x3 upon arrival per EMS, EKG showed sinus rhythm rate 84 with 1st degree AV block IA interval 360, QRS 134, QTC 394, left axis, no obvious ST elevations depressions, compared to prior EKG and they do appear very similar. CT head, C- spine, were negative, blood work revealed slightly low hgb, patient has history of ongoing hematuria > 6 months, UA significant for UTI, urine WBC > 100, urine culture pending. The patient was admitted and treated for urinary tract infection. Urine culture did not grow any organism however given his syncopal episode at home and urinary frequency it was decided to treat him for a urinary tract infection. He was monitored on telemetry showing a normal sinus rhythm and first-degree AV block. 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 A technically poor echocardiogram was completed which showed normal LV systolic function with an EF estimated 55-60%. Patient worked with PT and OT who recommended outpatient physical and occupational therapy. His syncopal episode was thought to be secondary to dehydration and urinary tract infection with hypotension. We he held his lisinopril during his stay and his blood pressures remained low. At discharge a continue to hold his blood pressure medications and asked him to follow-up with his primary care provider for resuming this medication. He was treated for total of 7 days with antibiotics for UTI. He was also started on ferrous sulfate daily for iron deficient anemia. Urology was consulted for a history of hematuria in the setting of anemia. There was no gross hematuria noted on exam and they recommended resuming his aspirin and Eliquis and continue with his previously scheduled follow-up. On day of discharge the patient complained of left ankle and foot pain after striking his foot against the bed overnight during a nightmare. There was ecchymosis and edema present and tenderness to palpation. X-ray was obtained which was negative for fracture. The patient lives at home with his son and [id number]-jex and ambulates with a walker. Recommended conservative therapy at this time with ice, elevation, and Tylenol for pain control. Should he have worsening symptoms it was recommended for him to follow-up with orthopedic doctor as outpatient. He was instructed to obtain a 30 day heart monitor as well. Overall this patient did well was discharged in stable condition. Patient Disposition: Home, Self-Care Discharge Medications: New -cefdinir 300 mg Capsule 300 mg PO BID 3 Days Qty: 6 0RF -ferrous sulfate 325 mg (65 mg iron) tablet 325 mg PO DAILY Qty: 90 0RF Held -lisinopril 5 mg Tablet 2.5 mg PO DAILY Hold Instructions: Resume on 07/22/24. Please hold until you follow up with your PCP /january/ CAIO TEMPLETON RN REGISTERED NURSE Signed: 07/17/2024 15:08 Receipt Acknowledged By: 07/22/2024 15:32 /es/ Lilia Lew [facility] 07/21/2024 09:47 /es/ Brandie Blanco RN, BSN [facility] 07/21/2024 08:35 /es/ SALINA RANKIN [employer]MENT MECH[employer] [facility] 07/23/2024 10:07 /es/ [employer] Painting [facility], Socrates Galvez [facility] 07/23/2024 ADDENDUM STATUS: COMPLETED Contacted to check on appt 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 /ajnuary/ [employer]BLE Pain[employer] [facility], oScrates Galvez [facility] Signed: 07/23/2024 10:09 CAIO GALVAN [facility]
--- OUTSIDE RECORDS SUMMARY | 2025-01-15 04:25 | XMS_ITS | Clinical Summary ---
Author Organization [facility] Address [address] [facility] [address] [place] [address] Phone Care Team Providers Care Wearing Apparel Assembler Name Role Phone Dear, Campbell Bullard DO Primary Care Provider + Allergies Active Allergy Reactions Criticality Noted Date Comments Amitriptyline Other (See Comments) 07/04/2017 Anger Morphine Unknown 07/04/2017 Oxcarbazepine Hallucination,Other (See Comments) Medium 01/18/2022 Penicillins Hives High 07/04/2017 Trazodone Blood Disorder Medium 01/18/2022 Medications tamsulosin (FLOMAX) 0.4 mg capsule Take 0.4 mg by mouth daily at bedtime. Active multivitamin (DAILY-MAURICE) tablet Take 1 Tablet by mouth daily. Active atorvastatin (LIPITOR) 40 mg tablet Take 40 mg by mouth. Three times weekly Active ergocalciferol (VITAMIN D2) 50,000 unit capsule Take 50,000 Units by mouth every 7 days. Active dulaglutide (Trulicity) 1.5 mg/0.5 mL injectionIndica tions:Type 2 diabetes mellitus with hyperglycemia, without long-term current use of insulin (CMS/[facility]) INJECT 0.5ML(1.5MG) SUBCUTANEOUS EVERY 7 DAYS 6 mL 1 2 Active lisinopriL (PRINIVIL) 2.5 mg tabletIndicatio ns:Type 2 diabetes mellitus with hyperglycemia, without long-term current use of insulin (CMS/HCC) Take 1 Tablet (2.5 mg) by mouth daily. 90 Tablet 1 2 Active apixaban (ELIQUIS) 5 mg tablet Take 2.5 mg by mouth 2 times daily. 2 Active sildenafiL, pulm.hypertensi on, (REVATIO) 20 mg Tablet 1 to 5 PO PRN QD 30 Tablet 5 3 Active metFORMIN (GLUCOPHAGE) 1,000 mg tablet Take 1,000 mg by mouth daily with breakfast. Active mirabegron (Myrbetriq) 50 mg Extended Release 24 hour tablet Take 50 mg by mouth daily. Active aspirin (BISHOP CHEWABLE) 81 mg Tablet, Chewable Take 81 mg by mouth daily. Active oxyCODONE-aceta minophen (Percocet) 5-325 mg tabletIndicatio ns:Acute left ankle pain Take 1 Tablet by mouth every 4 hours as needed for Severe Pain. Max Daily Amount: 6 Tablets 12 Tablet 12/12/2023 12:16 PM CDT 4 Active Active Problems Problem Noted Date Diagnosed Date Acute left ankle pain 12/11/2023 Acute pain of left knee 12/11/2023 Hypertension 12/11/2023 Right hip pain 12/10/2023 Type 2 diabetes mellitus with hyperglycemia 11/21 Urinary tract infection without hematuria 2023 Encounters Date Type Department Care Team Description 12/01/2024 External Device Data ST[facility] ABSTRACTION Provider, Abstract 11/30/2024 External Device Data [facility] ABSTRACTION Provider, Abstract 11/24/2024 External Device Data [facility] ABSTRACTION Provider, Abstract from Last 3 Months Immunizations Immunization Administration Dates Next Due Pneumococcal conjugate, unspecified formulation 03/11/2016 Family History Medical History Relation Name Comments Diabetes Father Leukemia Father Macular Degen Father Heart Disease Mother Glaucoma Neg Hx Relation Name Status Comments Father Mother Social History Tobacco Use Types Packs/Day Years Used Date Smoking Tobacco: Former Cigarettes 1 16 0 09/23/1953 - 09/23/1969 Smokeless Tobacco: Never Tobacco Cessation:Counseling Given: No Alcohol Use Standard Drinks/Week Comments No 0 (1 standard drink = 0.6 oz pur e alcohol) Feeling Safe Answer Date Recorded Are you in a relationship wi th someone who hurts you emotionally and/or physically? 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 Gender Identity Not on file Sexual Orientation Not on file Occupation Industry Job Start Date Job End Date Retired Not on file Not on file Not on file Last Filed Vital Signs Vital Sign Reading Time Taken Comments Blood Pressure 138/67 12/12/2023 7:43 AM CDT Pulse 77 12/12/2023 7:43 AM CDT Temperature 36.8 C (98.2 F) 12/12/2023 7:43 AM CDT Respiratory Rate 16 12/12/2023 7:43 AM CDT Oxygen Saturation 93% 12/12/2023 7:43 AM CDT Inhaled Oxygen Concentration - - Weight 97.5 kg (215 lb) 12/08/2023 6:33 AM CDT Height 185.4 cm (6' 1 ) 12/08/2023 6:33 AM CDT Body Mass Index 28.37 12/08/2023 6:33 AM CDT Plan of Treatment Health Maintenance Due Date Last Done Comments ZOSTER VACCINE (1 of 2) 1995 RSV VACCINE (60+ or ) (1 - 1-dose 75+ series) 2020 DIABETES ANNUAL RETINAL EXAM 08/29/202103/2020, 08/29/2020, 08/29/2020, Additional history exists DIABETES MICROALBUMIN ANNUAL SCREEN 09/29/2021 09/29/2020, 07/24/2019, 04/24/2019 LDL CHOLESTEROL ANNUAL 09/29/2021 , 07/24/2019, 04/24/2019 DTAP/TDAP/TD VACCINES (2 - T d or Tdap) 06/03/2022 06/03/2012, 12/08/2000 DIABETES ANNUAL FOOT EXAM 08/27/20232021, 07/09/2022, 07/09/2022, Additional history exists INFLUENZA VACCINE (#1) 2024 10/17/2016, 2016 DIABETES HBA1C Q 6 MONTHS 06/08/20242023, 11/13/2022, 04/17/2022, Additional history exists PNEUMOCOCCAL VACCINE 50+ YEARS Completed 0 10/17/2016, 10/03/2016, 10/03/2016, Additional history exists Medical Devices Implanted Type Area Marketing Community Liaison Device Identifier Shelf Expiration Date Model / Serial / Lot Knee Description:bilateral Hardware Description:head Procedures Procedure Name Priority Date/Time Associated Diagnosis Comments HEMOGLOBIN A1C Routine 12/07/2023 11:36 PM CDT MICROALBUMIN/CREATIN INE RATIO, RANDOM UR Routine 09/29/2020 1:44 PM SOFTWARE WRITER 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 AVG GLUCOSE, A1C 171 mg/dL 12/08/2023 10:41 AM CDT [facility] Blood Venipuncture / Unknown 12/07/2023 11:36 PM CDT 12/07/2023 11:40 PM CDT Narrative [facility] - 12/08/2023 10:41 AM CDT HGB A1C INTERPRETATION NORMAL: <5.7% PRE-DIABETES: 5.7 - 6.4% DIABETES: 6.5% OR GREATER us Valdez Castro MD CHEMISTRY ORDERABLES Final Resul t [facility]# [id number] [address] [place] [address] * (ABNORMAL) MICROALBUMIN/CREATININE RATIO, RANDOM UR (09/29/2020 1:44 PM SOFTWARE WRITER) MICROALBUMIN, URINE 2.2 No Reference Range mg/dL 09/29/2020 2:48 PM [facility] [employer] [facility] CREATININE, URINE 38.5(L) 40.0 - 278.0 mg/dL 09/29/2020 2:48 PM [facility] [employer] [facility] Comment:Reference Range vari es with fluid intake and diet. MICROALBUMIN/ CREAT RATIO, UR 57.1(H) <17.0 mg/g 09/29/2020 2:48 PM [facility] [employer] [facility] Urine URINE SPECIMEN OBTAINED BY CLEAN CATCH PROCEDURE / Unknown Collection / Unknown 09/29/2020 1:44 PM SOFTWARE WRITER 09/29/2020 1:59 PM SOFTWARE WRITER [facility] [employer] [facility] - 09/29/2020 2:48 PM SOFTWARE WRITER Condition Microalbumin/Creat ratio Normal Males <17 Normal Females <25 Microalbuminuria Males 17-299 Microalbuminuria Females 25-299 Overt proteinuria >=300 Rafy Ward MD URINE ORDERABLES Final Result [facility] [employer] [facility]# [id number] [address] [place] [address] * LIPID PANEL (09/29/2020 1:44 PM SOFTWARE WRITER) CHOLESTEROL 93 <200 mg/dL 09/29/2020 2:38 PM [facility] [employer] [facility] TRIGLYCERIDE 72 <150 mg/dL 09/29/2020 2:38 PM [facility] [employer] [facility] HDL 53 40 - 59 mg/dL 09/29/2020 2:38 PM [facility] [employer] [facility] LDL CALCULATED 26 <100 mg/dL 09/29/2020 2:38 PM [facility] [employer] [facility] NON-HDL CHOLESTEROL 40 <130 mg/dL 09/29/2020 2:38 PM [facility] [employer] [facility] Blood Venipuncture / Unknown 09/29/2020 1:44 PM SOFTWARE WRITER 09/29/2020 1:59 PM SOFTWARE WRITER Narrative [facility] [employer] [facility] - 09/29/2020 2:38 PM SOFTWARE WRITER TOTAL CHOLESTEROL mg/dL Desirable <200 Borderline high 200-239 High >=240 TRIGLYCERIDES mg/dL Normal <150 Borderline high 150-199 High 200-499 Very high >=500 HDL CHOLESTEROL mg/dL Low <40 Normal 40-59 Desirable >=60 NON HDL CHOLESTEROL mg/dL Optimal <130 Near Optimal 130-159 Borderline High 160-189 Very High >=190 CALCULATED LDL mg/dL LDL <70, OPTIMAL if have Atherosclerotic cardiovascular disease (ASCVD) or intermediate or higher (>7.5%) 10 year risk of ASCVD including most adults with diabetes. LDL <100, Optimal in adult patients with low (<7.5%) 10 year ASCVD risk LDL 100-160, Suboptimal LDL >160, High LDL >190, Very high ATPIII Guidelines Reference Ranges for Lipid Panels (NCEP/AMA) . Rafy Ward MD CHEMISTRY ORDERABLES Final Re sult [facility] [employer] [facility] CLIA# [id number] [address] [place] [address] from Last 3 Months or Most Recently Relevant to Health Maintenance Insurance RX OPTUM RX Member Subscriber Plan / Payer (Ef fective 2023-Present) Name:Cosme Javier Relation to Subscriber:Self Name:Cosme Javier Payer ID:Not on file Group ID:[id number] Type:RX Medicare Part D Address: [place] [place] Advance Directives For more information, please contact: [phone] * NO CPR (In Event of Cardiopulmonary Arrest) (Latest Code Status on File) Date Activated Date Inactivated Comments 12/08/2023 11:23 AM 12/12/2023 4:13 PM Question Answer Comments Mechanical Ventilation (for respiratory distress) - Invasive (i.e. intubation): No Mechanical Ventilation (for respiratory distress) - Non-Invasive (i.e. BiPAP, CPAP): No * Full Code Date Activated Date Inactivated Comments 07/15/2017 9:43 AM 07/15/2017 5:31 PM Care Teams Wearing Apparel Assembler Relationship Specialty Start Date End Date Dear, Campbell Bullard DO [address] [place] [phone] PCP - General Family Practice 07/09/22
--- OUTSIDE RECORDS SUMMARY | 2025-01-15 04:25 | XMS_ITS | Encounter Summary ---
Author Name [facility] Address [address] [place] [address] Care Team Providers Care Senior Financial Reporting Analyst Name Role Phone TI JOSHUA Primary Care [...] Robles's Name Patient's Relationship to Policy Robles [facility] (WNR) MEDICARE ADVANTAGE [facility] (WNR) Aug 23, 2023 [id number] [phone] MARY GRACE CASEY PATIENT [facility] (WNR) MEDICARE ADVANTAGE [facility] (WNR) Nov 21, 2021 [id number] MARY GRACE CASEY PATIENT MEDICAID (WNR) MEDICAID MEDIC AID (WNR) Sep 23, 2016 MEDICAI D [id number] VAUGHNMARY GRACE HEBERT PATIENT MEDICARE (WNR) MEDICARE (M) PART B Apr 23, 2007 PART B [id number] [phone] MARY GRACE CASEY PATIENT MEDICARE (WNR) MEDICARE (M) PART B Apr 23, 2007 PART B [id number] [phone] EMILY MARY GRACE Mcnair PATIENT MEDICARE (WNR) MEDICARE (M) PART A Dec 22, 2005 PART A [id number] [phone] MARY GRACE CASEY PATIENT MEDICARE (WNR) MEDICARE (M) PART A Dec 22, 2005 PART A [id number] [phone] EMILY MARY GRACE Mcnair PATIENT MEDICARE PART D (WNR) MEDICARE (M) PART D Nov 21, 2021 PART D [id number] EMILY McnairMARY GRACE [facility] (WNR) MEDICARE ADVANTAGE [facility] (WNR) Nov 21, 2021 [id number] [phone] IRISHMONSEMARY GRACE Spears [facility] (WNR) MEDICARE ADVANTAGE [facility] (WNR) Nov 21, 2021 [id number] [phone] [facility] VISION SPECT ERA VISIO N Sep 23, 2022 [id number] [phone] EMILY McnairMARY GRACE PATIENT Selected Encounter This section includes the information on record at [place] for the Encounter. Date/Time Encounter Type Encounter Description Reason Pro vider Source Jul 27, 2024 09:09 AM Outpatient Encounter GENERAL INTERNAL MEDICINE IHE Encounter Template Text not used by [place] Plan of Treatment: Future Appointments (+ 6 months) and Future Tests (+/- 45 days) The Plan of Treatment section includes future care activities for the patient from all [place] treatmentfacilities. This section includes future appointments and future orders which are active, pending or scheduled. Future Appointments This section includes appointments that were scheduled to occur 6 months from the date of the Encounter, up to a maximum of 20 appointments. The data comes from all [place] treatment facilities. Appointment Date/Time Appointment Type Appointme nt Facility Name Aug 05, 2024 01:00 PM AMBULATORY - MEDICINE [facility] Aug 25, 2024 01:00 PM AMBULATORY - MEDICINE [facility] Dec 15, 2024 01:00 PM AMBULATORY - MEDICINE [facility] Dec 15, 2024 02:00 PM AMBULATORY - NONE [facility] Lab Results: +/- 30 days of the [...] Type Comment Aug 11, 2024 02:37 PM [facility] HGA1C BLOOD Specimen Type: BLOOD No comment entered. Ordering Provider: JEANINE CARDENAS Report Released Date/Time: Aug 11, 2024 02:09 PM Reporting Lab: [facility] [address] [place] [phone] Performing Lab: [facility] [address] [place] [phone] HGA1C 7.1 H 4.0-6.0 Aug 11, 2024 02:37 PM [facility] LIPID PANEL (STL) PLASMA Specimen Type: PLASM A Comment: No hemolysis noted. Ordering Provider: JEANINE CARDENAS Report Released Date/Time: Aug 11, 2024 02:09 PM Reporting Lab: [facility] [address] [facility] [phone] Performing Lab: [facility] [address] [place] [phone] CHOLESTEROL 98 mg/dL 0-200 TRIGLYCERIDE 51 mg/dL 0-150 CALCULATED LDL 43 mg/dL HDL(New) 45 mg/dL >40 Aug 11, 2024 02:37 PM [facility] TSH (MA-PB) SERUM Specimen Type: SERUM No comment entered. Ordering Provider: JEANINE CARDENAS Report Released Date/Time: Aug 11, 2024 02:09 PM Reporting Lab: [facility] [address] [facility] [phone] Performing Lab: [facility] [address] [facility] [phone] TSH 3.281 u[IU]/mL 0.47-5 Aug 11, 2024 02:37 PM [facility] VITAMIN D, 25-HYDROXY SERUM Specimen Type: SE RUM No comment entered. Ordering Provider: JEANINE CARDENAS Report Released Date/Time: Aug 11, 2024 02:09 PM Reporting Lab: [facility] [address] [facility] [phone] Performing Lab: [facility] [address] [facility] [phone] VITAMIN D, 25-HYDROXY 31.4 ng/mL 30-96 Aug 11, 2024 02:37 PM [facility] B12 SERUM Specimen Type: SERU M No comment entered. Ordering Provider: JEANINE CARDENAS Report Released Date/Time: Aug 11, 2024 02:09 PM Reporting Lab: [facility] [address] [place] [phone] Performing Lab: [facility] [address] [place] [phone] B12 400 pg/mL 213-816 Aug 11, 2024 02:37 PM [facility] COMPREHENSIVE METABOLIC PANEL PLASMA Specimen Type: PLASMA Comment: No hemolysis noted. Ordering Provider: JEANINE CARDENAS Report Released Date/Time: Aug 11, 2024 02:09 PM Reporting Lab: [facility] [address] [place] [phone] Performing Lab: [facility] [address] [place] [phone] CREATININE 1.18 mg/dL 0.7-1.3 UREA NITROGEN 23.5 [...] 63.2 >60 Aug 11, 2024 02:37 PM [facility] CBC BLOOD Specimen Type: BLOOD No comment entered. Ordering Provider: JEANINE CARDENAS Report Released Date/Time: Aug 11, 2024 02:09 PM Reporting Lab: [facility] [address] [place] [phone] Performing Lab: [facility] [address] [facility] [phone] WBC 6.0 10*3/uL 3.6-11.2 RBC 3.92 10*6/uL [...] 0.00-0. 20 Aug 11, 2024 01:43 PM [facility] GLUCOSE,BLOOD-poct (STL) BLOOD Specimen Type: BLOOD Comment: Test Performed by: [id number] Meter #: [id number] Ordering Provider: JEANINE CARDENAS Report Released Date/Time: Aug 12, 2024 09:59 AM Reporting Lab: [facility] [address] [facility] [phone] Performing Lab: [facility] [address] [place] [phone] GLUCOSE,BLOOD-poct (STL) 100 mg/dL H 72-99 Social History: Smoking Status (Most current) and Tobacco Use (All prior to encounter date) This section includes the most current, and the historical, smoking and tobacco- related health factors from the [place] facility where the Encounter took place. Current Smoking Status This section includes the most current smoking, or tobacco-related health factor, from the [place] facility where the Encounter took place. Date/Time Current Smoking Status Comment Facil ity Apr 25, 2020 01:08 PM VA-TOBACCO FORMER USER [facility] Tobacco Use History This section includes a history of the smoking, or tobacco-related health factors, that were collected on or before the date of the Encounter. The data comes from the [place] facility where the Encounter took place. Date/Time Smoking Status/Tobacco Use Comment F acility Apr 25, 2020 01:08 PM VA-TOBACCO QUIT 15 YRS OR MORE [facility] Dec 10, 2002 02:47 PM LIFETIME NON-TOBACCO USER [facility] Nov 13, 2001 02:50 PM CURRENT NON-TOBACC O USER-HX OF USE [facility] Mar 18, 2001 08:35 AM CURRENT NON-TOBACC O USER-RECENTLY QUIT stopped long ago [facility] Mar 18, 2001 08:35 AM TOBACCO USE stopped long ago [facility] Dec 03, 2000 01:44 PM CURRENT NON-TOBACC O USER-HX OF USE pt quit 15 yrs ago. [facility] Dec 03, 2000 01:44 PM PREVIOUS SMOKER [facility] Advance Directives: All historical and current Section Date Range: From patient's date of to the date document was created. This section includes ALL of a patient's completed or amended [place] Advance and Rescinded Directives. The entries below indicate that a directive exists for the patient, but an actual copy is not included with this document. The data comes from all [facility]. Date Advance Directives Provider Source Jun 02, 1997 ADVANCE DIRECTIVE MARILYN BARRERA [facility] Encounter Notes: All associated encounter notes This section contains the clinical notes associated to the Encounter. Date/Time Encounter Note(s) Provider Source Jul 25, 2024 09:09 AM NONVA NOTE: LOCAL TITLE: COMMUNITY CARE-COURTNEY SELF PRESENTING CARE COORD PLAN STANDARD TITLE: NONVA NOTE DATE OF NOTE: JUL 25, 2024@09:09 ENTRY DATE: JUL 27, 2024@09:09:42 AUTHOR: YOHANA ARAMBULA EXP COSIGNER: URGENCY: STATUS: COMPLETED COMMUNITY CARE-COURTNEY SELF PRESENTING CARE COORD PLAN 657 STL Has ADDENDA Emergency Notification Intake Date Presenting to the Facility: Jul Method of Contact: Notified from ECR worklist Notification ID: [id number] [facility] Referral #: [id number] Clinical Review [facility] Name: Hospital: [facility] Address: [address] City: [place] State: [place] Zip Code: [address] [facility] Point of Contact: Name: ALAN BLUM Chief complaint: catheter replacement Primary Diagnosis: Disposition Discharged Date of discharge: Jul Discharge to home Records req'd by fax. /january/ YOHANA ARAMBULA ADVANCED INBOUND CUSTOMER SERVICE AGENT Signed: 07/27/2024 09:11 Receipt Acknowledged By: 07/27/2024 11:01 /es/ Lilia Lew ARMED GUARDJey Powers [facility] 07/27/2024 09:15 /es/ Brandie Blanco RN, BSN [facility] 07/27/2024 10:14 /es/ SALINA RANKIN LPN [facility] 08/04/2024 ADDENDUM STATUS: COMPLETED RECORDS REC'D and sent to [facility] for scanning. /january/ MILES BYRD INBOUND CUSTOMER SERVICE AGENT Signed: 08/04/2024 09:09 YOHANA ARAMBULA [facility]
--- OUTSIDE RECORDS SUMMARY | 2025-01-15 04:25 | XMS_ITS ---
Author Organization [facility] Address [address] [facility] [address] [facility] [address] [place] [address] Care Team Providers Care Breaster Name Role Phone AvilaAlanaMelvin Unavailable [phone] PROBLEMS Problem Type ICD Code Onset Dates Problem Status W/U Status Risk SNOMED Code Notes Problem Stage 3 chronic kidney disease (N18.30) Active confirmed Chronic kidney disease stage 3 (disorder) (468155465) Problem Type 2 diabetes mellitus with diabetic chronic kidney disease (E11.22) Active confirmed Diabetic renal disease (561979169) Problem Essential hypertension (I10) Active confirmed Essential hypertension (84432195) Problem Hyperlipidemia, unspecified (E78.5) Active confirmed Hyperlipidemia (60187011) Encounters Encounter Location Date Provider Diagnosis [place] [facility] [address] [facility] [address] [place] [address] 09/09/2024 Melvin Avila Stage 3 chronic kidn [...] - E78.5) PLAN OF TREATMENT No Information Progress Notes * MARY GRACE LAUDOB: [birth year] (79 yo M)Acc No.[id number]:09/09/2024 Progress Notes Patient: MARY GRACE LAU Provider: MD KEVIN, F.A.C.P, F.A.S.N. :1945 Age:79 Y Sex:Male Date:09/09/2024 Address:[address] [place] [address] Subjective: * Chief Complaints: * * Medical History: Objective: Assessment: * Assessment: 1. Stage 3 chronic kidney disease - N18.30 (Primary) 2. Type 2 diabetes mellitus with diabetic chronic kidney disease - E11.22 3. Essential hypertension - I10 4. Hyperlipidemia, unspecified - E78.5 Plan: * Treatment: * Billing Information: * Visit Code: 15318 Office Visit, New Pt., Level 5. * Procedure Codes: * Sign off status: Pending * Provider: MD KEVIN, F.A.C.P, F.A.S.N. Date: 09/09/2024
--- OUTSIDE RECORDS SUMMARY | 2025-01-15 04:25 | XMS_ITS | Encounter Summary ---
Author Organization [facility] Address [address] [place] [address] Care Team Providers Care Supervisor Poultry Processing Name Role Phone Abraham Cohn DO Primary Care Provider + Unknown, Provider Primary Care Provider Unavaila ble Encounter Details Date Type Department Care Team (Late st Contact Info) Description 01/05/2021 [facility] Outpatient Visit [facility] - Radiology [address] [place] [address] [place] [address] Document, Scanned Social History Tobacco Use Types Packs/Day Years Used Date Smoking Tobacco: Former Smokeless Tobacco: Never Alcohol Use Standard Drinks/Week Comments No 0 (1 standard drink = 0.6 oz pur e alcohol) Sex and Gender Information Value Date Recorded Sex Assigned at Not on file Legal Sex Male 5:27 AM CHECK WEIGHER Gender Identity Not on file Sexual Orientation Not on file Occupation Industry Job Start Date Job End Date Retired Not on file Not on file Not on file documented as of this encounter Functional Status * Is person deaf or have serious hearing difficulty? Answer Date of Assessment Author No 12/04/2019 11:03 AM Urbano Argueta * Is person blind or have serious difficulty seeing? Answer Date of Assessment Author No 12/04/2019 11:03 AM Urbano Argueta * Does person have serious difficulty walking/climbing stairs? Answer Date of Assessment Author No 12/04/2019 11:03 AM Urbano Argueta * Does person have difficulty dressing/bathing? Answer Date of Assessment Author No 12/04/2019 11:03 AM Urbano Argueta * Does person have difficulty doing errands alone? Answer Date of Assessment Author No 12/04/2019 11:03 AM Urbano Argueta documented as of this encounter Mental Status * Does person have difficulty concentrating/remembering/making decisions? Answer Entry Date Author No 12/04/2019 11:03 AM Urbano Argueta documented in this encounter Plan of Treatment Not on file documented as of this encounter Visit Diagnoses Not on filedocumented in this encounter Care Teams Supervisor Poultry Processing Relationship Specialty Start Date End Date Abraham Cohn DO [address] [place] [id number] PCP - General Family Medicine 09/06/20 03/03/23 Unknown, Provider PCP - General 02/28/24 documented as of this encounter
--- OUTSIDE RECORDS SUMMARY | 2025-01-15 04:25 | XMS_ITS | Encounter Summary ---
Author Organization [facility] Address 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
--- OUTSIDE RECORDS SUMMARY | 2025-01-15 04:26 | XMS_ITS | Encounter Summary ---
Author Organization [facility] Address 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
--- OUTSIDE RECORDS SUMMARY | 2025-01-15 04:26 | XMS_ITS | Encounter Summary ---
Author Organization [facility] Address [address] [place] [address] Care Team Providers Care Health Care Marketing Manager Name Role Phone Unknown, Provider Primary Care Provider Unavaila ble Reason for Visit * Reason Onset Date Comments Med Question 06/18/2024 Encounter Details Date Type Department Care Team (Late st Contact Info) Description 06/18/2024 Telephone [facility] - Centralized Scheduling [address] [place] [address] Thao Neri MD [address] [place] [address] Med Question Social History Tobacco Use Types Packs/Day Years Used Date Smoking Tobacco: Former Smokeless Tobacco: Never Alcohol Use Standard Drinks/Week Comments No 0 (1 standard drink = 0.6 oz pur e alcohol) Sex and Gender Information Value Date Recorded Sex Assigned at Not on file 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 Answer Date of Assessment Author No 04/03/2022 12:35 PM José Miguel Connolly RN * Is person blind or have serious difficulty seeing? Answer Date of Assessment Author No 04/03/2022 12:35 PM José Miguel Connolly RN * Does person have serious difficulty walking/climbing stairs? Answer Date of Assessment Author No 04/03/2022 12:35 PM CDT José Miguel Heller RN * Does person have difficulty dressing/bathing? Answer Date of Assessment Author No 04/03/2022 12:35 PM CDT José Miguel Heller RN * Does person have difficulty doing errands alone? Answer Date of Assessment Author No 04/03/2022 12:35 PM CDT José Miguel Heller RN documented as of this encounter Mental Status * Does person have difficulty concentrating/remembering/making decisions? Answer Entry Date Author No 04/03/2022 12:35 PM CDT José Miguel Heller RN documented in this encounter Miscellaneous Notes * Telephone Encounter - Yady Pugh - 06/18/2024 8:25 AM CDT Patient missed appt on 06/09 due to having Pneumonia. He is wanting someone to give him a call to goover his test results. documented in this encounter Plan of Treatment Not on file documented as of this encounter Visit Diagnoses Not on filedocumented in this encounter Care Teams Health Care Marketing Manager Relationship Specialty Start Date End Date Unknown, Provider PCP - General 02/28/24 documented as of this encounter
--- OUTSIDE RECORDS SUMMARY | 2025-01-15 04:26 | XMS_ITS | Encounter Summary ---
Author Organization [facility] Address 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
--- OUTSIDE RECORDS SUMMARY | 2025-01-15 04:26 | XMS_ITS | Encounter Summary ---
Author Organization [facility] Address 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
--- OUTSIDE RECORDS SUMMARY | 2025-01-15 04:26 | XMS_ITS | Encounter Summary ---
Author Organization [facility] Address 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
--- OUTSIDE RECORDS SUMMARY | 2025-01-15 04:26 | XMS_ITS | Clinical Summary ---
Author Organization [facility] Address [facility] [place] [address] Care Team Providers Care Option Trader Name Role Phone Sahara Lee MD Primary Care Provider Allergies Active Allergy Reactions Criticality Noted Date Comments Amitriptyline Nausea Only,Angioedema,Othe r (see comment),Unknown,Swe lling,Throat swelling High 07/04/2017 Anger Anger Anger Anger Iodinated Contrast Media Itching 02/28/2024 Morphine Other (see comment),Nausea and Vomiting,Unknown Medium 07/04/2017 Oxcarbazepine Other (see comment),Hallucinati ons Medium 01/18/2022 Penicillins Hives,Nausea and Vomiting,Rash,Shortn ess of Breath,Throat swelling,Unknown High 07/04/2017 Trazodone Other (see comment) Medium 01/18/2022 Wasp Venom Protein Unknown 11/23/2022 Medications aspirin 81 MG chewable tablet Chew 1 tablet (81 mg total) by mouth daily. Active atorvastatin (LIPITOR) 40 MG tablet Take 1 tablet (40 mg total) by mouth nightly at bedtime. 03/19/2022 Active diclofenac EC (VOLTAREN) 75 MG tablet Take 1 tablet (75 mg total) by mouth 2 (two) times daily. 10/29/2023 Active TRULICITY 1.5 MG/0.5ML injection Inject 1.5 mg into the skin once a week. 03/19/2022 Active SYNJARDY XR 5-1000 MG TABLET SR 24 HR Take 500 mg by mouth 2 (two) times daily. 05/31/2023 Active gabapentin (NEURONTIN) 300 MG capsule Take 1 capsule (300 mg total) by mouth 3 (three) times daily. 02/28/2024 Active lisinopril (PRINIVIL) 2.5 MG tablet Take 1 tablet (2.5 mg total) by mouth daily. 03/19/2022 Active metFORMIN ER (GLUCOPHAGE-XR) 500 MG 24 hr tablet Take 1 tablet (500 mg total) by mouth daily with breakfast. 11/25/2023 Active mirabegron ER (MYRBETRIQ) 50 MG 24 hr tablet Take 1 tablet (50 mg total) by mouth daily. 05/15/2023 Active omeprazole (PRILOSEC) 20 MG capsule Take 1 capsule (20 mg total) by mouth daily. Active oxybutynin (DITROPAN) 5 MG tablet Take 1 tablet (5 mg total) by mouth 2 (two) times daily. 01/17/2024 Active tamsulosin (FLOMAX) 0.4 MG Cap Take 1 capsule (0.4 mg total) by mouth nightly. Active cephALEXin (KEFLEX) 500 MG capsule 08/25/2024 Active montelukast (SINGULAIR) 10 MG tablet Take 1 tablet (10 mg total) by mouth daily. Active sertraline (ZOLOFT) 50 MG tablet 03/19/2022 Active apixaban (ELIQUIS) 5 MG tablet Eliquis 5 mg tablet Active enoxaparin (LOVENOX) 80 mg/0.8 mL Solution Prefilled Syringe syringe INJECT THE CONTENTS OF 1 PEN UNDER THE SKIN TWICE DAILY 01/10/2024 Active ferrous sulfate, 65 mg elemental, 325 (65 FE) MG tablet Take 1 tablet (325 mg total) by mouth daily. Active methocarbamol (ROBAXIN) 750 MG Tab Take 1 tablet (750 mg total) by mouth 3 (three) times daily as needed. 12/26/2023 Active Multiple Vitamin (DAILY-MAURICE) Tab Take 1 tablet by mouth daily. Active Active Problems Problem Noted Date Diagnosed Date Hematuria 08/06/2024 Syncope 08/06/2024 Acute left ankle pain 12/11/2023 Urinary tract infection without hematuria 2023 DVT (deep venous thrombosis) ([facility]) 1 11/07/2022 Hypercoagulable state ([facility]) 09/06/2023 Osteoarthrosis 09/06/2023 Old myocardial infarction 09/06/2023 TIA (transient ischemic attack) 04/03/2023 Essential hypertension 11/07/2022 Varicose veins of right lower extremity with inf lammation 08/06/2022 Overview (08/26/2024): Last Assessment & Plan: Chronic, worsening - Refer to vascular surgery - start voltaren gel prn Disorder of arteries and arterioles, unspecified 07/11/2022 Knee pain 07/11/2022 Localized osteoarthrosis 07/11/2022 Low back pain 07/11/2022 Left hand pain 05/22/2022 Arteriosclerosis of coronary artery 04/17/2022 Overview (08/26/2024): Last Assessment & Plan: Chronic, stable - Known CAD (thinks had stent placed po 2002) - eliquis 5mg bid Benign prostatic hyperplasia without lower urinary tract symptoms 04/17/2022 Overview (08/26/2024): Last Assessment & Plan: Chronic, stable - Urology, Dr. 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 ([facility]) 04/17/2022 Overview (08/26/2024): Last Assessment & Plan: Chronic, R anterior tibial (12/12); unprovoked per report - lifelong anticoagulation, reports had recurrent issues with thick blood but no known coagulation disorder per patient - eliquis 5mg bid Class 1 obesity due to exces s calories with serious comorbidity and body mass index (BMI) of 32.0 to 32.9 in adult 04/17/2022 Controlled type 2 diabetes m ellitus with circulatory disorder, without long-term current use of insulin ([facility]) 04/17/2022 Diabetic polyneuropathy asso ciated with type 2 diabetes mellitus ([facility]) 04/17/2022 Former smoker 04/17/2022 Overview (08/26/2024): Last Assessment & Plan: Quit 38 years ago -Not candidate for lung cancer screening - is due for abdominal aortic aneurysm screening Gastroesophageal reflux disease without esophagi tis 04/17/2022 Overview (08/26/2024): Last Assessment & Plan: Chronic, stable - omeprazole 20mg Mixed hyperlipidemia 04/17/2022 Type 2 diabetes mellitus wit h hyperglycemia ([facility]) 04/17/2022 Overview (08/26/2024): Diagnosed around 2004. Complicated by peripheral neuropathy, CAD s/p stent placement, multiple TIAs. On Gabapentin 300mg bid for neuropathy. Abdominal pain, epigastric 11/30/2019 Cognitive impairment 10/07/2019 Neuropathy 10/07/2019 Encounters Date Type Department Care Team Description 11/13/[address] [facility] [address] [place] [address] Arik Adan DO Orders from Last 3 Months Family History Medical History Relation Comments COPD Father Diabetes Father COPD Mother Diabetes Mother COPD Son Relation Status Comments Father Mother Son Alive Social History Tobacco Use Types Packs/Day Years Used Date Smoking Tobacco: Former Cigarettes 2 27 Passive Smoke Exposure: Past Smokeless Tobacco: Never Tobacco Cessation:Counseling Given: Yes Comments:Quit smoking about 38 years ago Alcohol Use Standard Drinks/Week Comments Never 0 (1 standard drink = 0.6 oz pur e alcohol) Sex and Gender Information Value Date Recorded Sex Assigned at Not on file Legal Sex Male 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 Gender Identity Not on file Sexual Orientation Not on file Last Filed Vital Signs Vital Sign Reading Time Taken Comments Blood Pressure 135/82 08/26/2024 9:10 AM JEWEL GRINDER Pulse 64 08/26/2024 8:45 AM JEWEL GRINDER Temperature 36.3 C (97.4 F) 03/20/2024 8:24 AM CDT Respiratory Rate 16 08/26/2024 8:45 AM JEWEL GRINDER Oxygen Saturation 97% 08/26/2024 8:45 AM JEWEL GRINDER Inhaled Oxygen Concentration - - Weight 94.8 kg (209 lb) 08/26/2024 8:45 AM JEWEL GRINDER Height 185.4 cm (6' 1 ) 08/26/2024 8:45 AM JEWEL GRINDER Body Mass Index 27.57 08/26/2024 8:45 AM JEWEL GRINDER Plan of Treatment Upcoming Encounters Date Type Department Care Team (Late st Contact Info) Description 01/25/2025 10:20 AM CDT Office Visit [facility] - [facility] [address] [facility], [address] [place] [address] Amadeo Armstrong MD [address] [place] [address] Health Maintenance Due Date Last Done Comments ASCVD LDL 1945 Kidney Health Evaluation 1945 Diabetes: Retinopathy Eye Exam 1963 Zoster Vaccines (1 of 2) 1995 Annual Medicare Wellness Visit 2010 RSV Immunization or 60+ Years (1 - 1-dose 75+ series) 2020 Lipid Panel 09/29/2021 09/29/2020 DTaP, Tdap and Td Vaccines (2 - Td or Tdap) 06/03/2022 06/03/2012, 12/08/2000, 02/24/1998 COVID-19 Vaccine ( season) 2024 Hemoglobin A1C 06/08/2024 12/07/2023, 0209/2022, 02/11/2022, Additional history exists PHQ-2 (Physician [place]) 09/23/2024 Pneumococcal Vaccine: 50+ Years Completed 10/17/2016, 10/03/2016, 03/22/2014 Hepatitis C Completed 09/06/2020 Meningococcal B Vaccine Aged Out No l onger eligible based on patient's age to complete this topic Meningococcal Vaccine Aged Out No january elissa eligible based on patient's age to complete this topic RSV Immunizations Under 20 Months Aged Out No longer eligible based on patient's age to complete this topic Insurance MED [facility] MEDICARE SOLUTIONS MEDICAID Care Teams Option Trader Relationship Specialty Start Date End Date Sahara Lee MD [address] [address] PCP - General INTERNAL MEDICINE 03/20/24
--- OUTSIDE RECORDS SUMMARY | 2025-01-15 04:26 | XMS_ITS | Encounter Summary ---
Author Organization [facility] Address 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
--- OUTSIDE RECORDS SUMMARY | 2025-01-15 04:26 | XMS_ITS | Encounter Summary ---
Author Organization [facility] Address 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
--- OUTSIDE RECORDS SUMMARY | 2025-01-15 04:34 | XMS_ITS | CONTINUITY OF CARE DOCUMENT ---
Author Name monica anderson Address Unknown Organization [facility] Address [address] [place] [address] Phone [phone] Care Team Providers Care Retail Service Lead Merchandiser Name Role Phone Jessy Sofia MD Unavailable SANJUANITA ERNST MD Unavailable [phone] SANJUANITA ERNST MD Unavailable PROBLEMS Condition Status Date Provider Notes S/P [...] In-person encounter Office Visit Braxton Gee MD [facility] - In-person encounter Office Visit Braxton Gee MD [facility] - In-person encounter Office Visit Braxton Gee MD [facility] BradycardiaBifascicular block - In-person encounter Office Visit Jessy Sofia MD [facility] SyncopeHematuria - In-person encounter Office Visit Jessy Sofia MD [facility] DM - type 2HTN essentialOsteoarthritisHypercoagulable stateOld myocardial infarctionDVT VITAL SIGNS Date Observation Value Provider Body Mass Index (Ratio) 27.70 kg/m2 Jacek Gee MD blood pressure, diastolic 75 mm[Hg] [facility], systolic 153 mm[Hg] [facility] oxygen saturation, oximetry 98 % [facility] pulse rate 69 /min [facility] respiratory rate E&M 12 /min [facility] blood pressure, cuff size regular [facility] weight E&M 210 [lb_av] [facility] height E&M 73 [in_i] [facility] Body Mass Index (Ratio) 27.44 kg/m2 Jacek Gee MD blood pressure, diastolic 76 mm[Hg] [facility] blood pressure, systolic 150 mm[Hg] [facility] oxygen saturation, oximetry 94 % [facility] pulse rate 74 /min [facility] respiratory rate E&M 12 /min [facility] weight E&M 208 [lb_av] [facility]&M 73 [in_i] [facility] blood pressure, cuff size regular [facility] Body Mass Index (Ratio) 27.97 kg/m2 Karel Soto oxygen saturation, oximetry 98 % Madison Moreland pulse rate 57 /min Madison Durant lder blood pressure, diastolic 64 mm[Hg] Ke azam Moreland blood pressure, systolic 135 mm[Hg] Dangelo Moreland weight E&M 212 [lb_av] Madison Durant er height E&M 73 [in_i] Madison Durant [facility] Body Mass Index (Ratio) 26.65 kg/m2 Ria Sofia MD blood pressure, diastolic 65 mm[Hg] [facility] blood pressure, systolic 120 mm[Hg] Macy mcguire Sabina oxygen saturation, oximetry 98 % [facility] pulse rate 68 /min [facility] respiratory rate E&M 14 /min [facility] weight E&M 202 [lb_av] [facility] height E&M 73 [in_i] [facility] blood pressure, cuff size regular [facility] Body Mass Index (Ratio) 29.42 kg/m2 Karel as Charles blood pressure, diastolic 75 mm[Hg] Li nkLogic blood pressure, systolic 130 mm[Hg] Danielle kLogic blood pressure, cuff size regular Fa [facility] blood pressure, diastolic 75 mm[Hg] Fa ith [...] tablet every six hours for pain 3 Braxtno Gee MD Eliquis 5 mg tablet active Jessy Sofia MD Trulicity 1.5 mg/0.5 mL pen injector active Jessy Sofia MD omeprazole 20 mg capsule,delayed release(DR/EC) active Jessy Sfoia MD Synjardy XR 5-1,000 mg tablet, IR [...] Sofia MD ibuprofen 800 mg tablet active Jsesy Sofia MD lisinopril 2.5 mg tablet active [...] (inactive) Management Plan continue current therapy Jessy Sofai MD INSURANCE PROVIDERS Payer name Policy type / Coverage type [employer] party ID [employer] MEDICARE ADVANTAGE ST 0 003 (HMO POS) Medicare [id number] [facility] Medicaid 4 [id number] ADVANCE DIRECTIVES Name Date DISCUSSED - NO [...] bairon Jhaveri. Had hematuria. Was evaluated at [place] and has chronic acosta. S ays that [...] dual chamber PPM as he has prolonged VA and prolonged QRS and 2 syncopal events. [...] n Eliquis. Had hematuria. Was evaluated at [place] and has chronic acosta. Campbell Soto [facility]iology: H is updated medication list for this problem includes: Trulicity 1.5 Mg/0.5 Ml Pen Injector (Dulaglutide) Synjardy Xr 5-1,000 Mg Tablet, Ir - Er, Biphasic 24hr (Empagliflozin-metformin) Lisinopril 2.5 Mg Tablet (Lisinopril) Metformin 500 Mg Tablet Extended Release 24 Hr (Metformin) Jessy Sofia MD Cardiology: a bnormal EKG suggestive of old inferior wall; [place] , had stents in 8301-2896, [place] , done at [facility] on asa 81mg H is updated medication list for this problem includes: Lisinopril 2.5 Mg Tablet (Lisinopril) Jessy Sofia MD Cardiology:On Eliqui s. Had hematuria. Was evaluated at [place] and has chronic acosta. S ays that he was told he has sticky blood in the past, currently on eliquis T his visit has been a part of the consistent, comprehensive, and ongoing management of the chronic medical condition(s) listed above for the patient. Jessy Sofia MD Cardiology:On Eliqui s. Had hematuria. Was evaluated at [place] and has chronic acosta. Jessy Sofia MD Cardiology:On Eliqui s. Had hematuria. Was evaluated at [place] and has chronic acosta. Jessy Sofia MD [...] dual chamber PPM as he has prolonged VA and prolonged QRS and 2 syncopal events. [...] Cardiology:abnormal EKG suggestive of old inferior wall; [place] , had stents in 4619-0379, [place] in , done at [facility] on asa 81mg H is updated medication [...]
[2025-01-15 04:38] VITALS: BP 177/73; PULSE 66; RESP 18; TEMP 36.6; O2SAT 97
--- NOTE | 2025-01-15 04:57 | ED_ITS ---
HPI - General Adult General Chief complaint: Urogenital-Male Stated complaint: urinary catheter coming out Time Seen by Provider: 01/15/25 04:29 History of Present Illness HPI narrative: This is a 79-year-old male with chronic indwelling Omer presenting for Omer malfunction. Patient accidentally had his Omer pulled earlier today. This caused him some pain in the started to drain around the Omer. No other symptoms. No fevers chills flank pain nausea vomiting diarrhea. Related Data Home Medications ?Medication ?Instructions ?Recorded ?Confirmed ?Last Taken ?Type apixaban 5 mg tablet (Eliquis) 5 mg PO BID 01/13/24 07/04/24 05/19/24 History aspirin 81 mg tablet,delayed 81 mg PO DAILY 01/13/24 07/04/24 05/19/24 History release (Adult Low Dose Aspirin) atorvastatin 80 mg tablet 40 mg PO DAILY 01/13/24 07/04/24 03/29/24 09:00 History dulaglutide 1.5 mg/0.5 mL 1.5 mg subcut WEEKLY 01/13/24 07/04/24 Unknown History subcutaneous pen injector (Trulicity) mirabegron 50 mg tablet,extended 50 mg PO DAILY 01/13/24 07/04/24 03/29/24 09:00 History release 24 hr (Myrbetriq) omeprazole 20 mg capsule,delayed 20 mg PO BID 01/13/24 07/04/24 03/29/24 17:00 History release tamsulosin 0.4 mg capsule 0.4 mg PO DAILY 01/13/24 07/04/24 03/29/24 09:00 History gabapentin 300 mg capsule 300 mg PO TID 01/29/24 07/05/24 05/21/24 05:00 History lisinopril 5 mg tablet 2.5 mg PO DAILY 04/08/24 07/04/24 Unknown History Allergies Allergy/AdvReac Type Severity Reaction Status Date / Time iodine Allergy Rash Verified 01/15/25 04:22 Penicillins Allergy Swelling Verified 01/15/25 04:22 amitriptyline AdvReac BECOMES Verified 01/15/25 04:22 VIOLENT/COMBATIVE codeine AdvReac avoids Verified 01/15/25 04:22 -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 AdvReac Nausea and Verified 01/15/25 04:22 Vomiting PMFSH Past Medical History Medical History CAD (coronary artery disease) CVA (cerebral vascular accident) 1982, 1990 mild left weakness Diabetic neuropathy History of diabetes mellitus History of heart attack History of hypertension TIA (transient ischemic attack) x8 VTE (venous thromboembolism) Surgical History Surgical History History of transurethral resection of bladder tumor (TURBT) Family History Family History Father Diabetes mellitus Sibling Diabetes mellitus Mother Congestive heart disease Social History Social History Smoking packs per day: 1 Smoking cigarettes per day: 20.0 Years smoked: 40 Smoking pack-years: 40.00 Smoking status: Former smoker Tobacco type: cigarettes Smoking end date: 03/23/95 Alcohol intake: former Alcohol use details: QUIT HEAVY DRINKER PRIOR Substance use: former Substance use type: does not use 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 Head: atraumatic. EYES: EOMI, NOSE: Atraumatic NECK: Trachea midline RESPIRATORY: No increased rate of breathing CTAB CARDIOVASCULAR: RRR, ABDOMINAL: Soft nontender, no suprapubic fullness : Omer with leg bag in place MUSCULOSKELETAl: No obvious deformities NEURO: Alert. Moving 4/4 extremities SKIN:: Warm, dry. Normal color PSYCHIATRIC: Normal affect Course Vital Signs Vital signs: Vital Signs Temperature 97.9 F 01/15/25 04:38 Pulse Rate 66 01/15/25 04:38 Respiratory Rate 18 01/15/25 04:38 Blood Pressure 177/73 H 01/15/25 04:38 Pulse Oximetry 97 01/15/25 04:38 Oxygen Delivery Room Air 01/15/25 04:38 Temperature 97.9 F 01/15/25 04:38 Pulse Rate 66 01/15/25 04:38 Respiratory Rate 18 01/15/25 04:38 Blood Pressure 177/73 H 01/15/25 04:38 Pulse Oximetry 97 01/15/25 04:38 Oxygen Delivery Room Air 01/15/25 04:38 Medical Decision Making MDM Narrative Medical decision making narrative: -Course: 79-year-old male presenting with Omer malfunction. Omer was replaced and is now draining appropriately. Ultrasound did not reveal a distended bladder. No other symptoms. Patient will be discharged follow-up with his urologist. -DDX includes but is not limited to: Omer malfunction, malpositioning Vital Signs Vital Signs: Vital Signs Temperature 97.9 F 01/15/25 04:38 Pulse Rate 66 01/15/25 04:38 Respiratory Rate 18 01/15/25 04:38 Blood Pressure 177/73 H 01/15/25 04:38 Pulse Oximetry 97 01/15/25 04:38 Oxygen Delivery Room Air 01/15/25 04:38 Temperature 97.9 F 01/15/25 04:38 Pulse Rate 66 01/15/25 04:38 Respiratory Rate 18 01/15/25 04:38 Blood Pressure 177/73 H 01/15/25 04:38 Pulse Oximetry 97 01/15/25 04:38 Oxygen Delivery Room Air 01/15/25 04:38 Discharge Plan Discharge Clinical Impression: Malfunction of Omer catheter Patient Disposition: Home Condition: Stable Instructions: Antibiotic Form, Omer Catheter Placement and Care (ED) Additional Instructions: Your Omer was replaced is no function appropriately. Follow-up with urologist for further management. She developed fevers flank pain or any new or worsening symptoms return to the ED for re-evaluation. Patient Language: Tristanian Prescriptions: No Action atorvastatin 80 mg tablet 40 mg PO DAILY Eliquis 5 mg Tablet 5 mg PO BID tamsulosin 0.4 mg capsule 0.4 mg PO DAILY omeprazole 20 mg Capsule,Delayed Release(Dr/Ec) 20 mg PO BID mirabegron [Myrbetriq] 50 mg tablet extended release 24 hr 50 mg PO DAILY aspirin [Adult Low Dose Aspirin] 81 mg Tablet,Delayed Release (Dr/Ec) 81 mg PO DAILY Trulicity 1.5 mg/0.5 mL pen injector 1.5 mg SUBCUT WEEKLY Patient Comments: TAKES ON saturday Rx Instructions: saturday gabapentin 300 mg capsule 300 mg PO TID sulfamethoxazole-trimethoprim [Bactrim DS] 800-160 mg tablet 1 tablet PO Q12H 7 Days Qty: 14 0RF cephalexin 500 mg capsule 500 mg PO Q12H 7 Days Qty: 14 0RF lisinopril 5 mg Tablet 2.5 mg PO DAILY cefdinir 300 mg Capsule 300 mg PO BID 3 Days Qty: 6 0RF ferrous sulfate 325 mg (65 mg iron) tablet 325 mg PO DAILY Qty: 90 0RF Follow-up/Referrals: Rosa,MD Sahara [Primary Care Provider] -
--- NOTE | 2025-01-15 05:11 | PC.NURSE ---
This RN and MD Monsalve attempted to reposition pt catheter by deflating the pt balloon and furthering catheter then reinflating pt balloon. Pt urine kept dribbling around catheter and having pain. Per MD Monsalve, he verbally states to replace pt catheter and he will ultrasound that we are in the right place. Rn replaced pt catheter with a new 16 fr acosta and has successful urine output in pt catheter bag. Pt denies any pain at this time.
[2025-01-15 05:14] VITALS: BP 169/70; PULSE 69; RESP 18; O2SAT 99
== END 2025-01-15 05:16 | disposition home or self-care (01) ==
PROVIDERS: Emergency Provider Emergency Medicine; PCP Internal Medicine
DX: T83.091A Other mechanical complication of indwelling urethral catheter, initial encounter (principal); Z79.01 Long term (current) use of anticoagulants; I25.10 Atherosclerotic heart disease of native coronary artery without angina pectoris; I69.354 Hemiplegia and hemiparesis following cerebral infarction affecting left non-dominant side; I10 Essential (primary) hypertension; Z86.718 Personal history of other venous thrombosis and embolism; Z87.891 Personal history of nicotine dependence
CPT/HCPCS: 51702; 99283

== ENCOUNTER 2025-02-14 06:28 | Emergency (ER) | payer MEDICARE, MEDICAID, SELFPAY ==
--- OUTSIDE RECORDS SUMMARY | 2025-02-14 06:30 | XMS_ITS | Patient Health Record ---
Author Organization [facility] Address [address] [facility] [address] [place] [address] Care Team Providers Care Instructor Hairspring Name Role Phone Austin Melvin Unavailable [phone] REASON FOR REFERRAL No Information PROBLEMS Problem Type ICD Code Onset Dates Problem Status W/U Status Risk SNOMED Code Notes Problem Type 2 diabetes mellitus with diabetic chronic kidney disease (E11.22) Active confirmed Diabetic renal disease (531081643) Problem Hyperlipidemia, unspecified (E78.5) Active confirmed Hyperlipidemia (59976012) Problem Essential hypertension (I10) Active confirmed Essential hypertension (47892932) Problem Stage 3 chronic kidney disease (N18.30) Active confirmed Chronic kidney disease stage 3 (disorder) (145097151) Encounters Encounter Location Date Provider Diagnosis [place] [facility] [address] [place] [address] 09/09/2024 Melvin Avila Stage 3 chronic kidn [...]
--- OUTSIDE RECORDS SUMMARY | 2025-02-14 06:30 | XMS_ITS | Data Portability ---
Author Organization [facility]Data, Main Office Address [address] [place] [address] Care Team Providers Care Software Quality Automation Engineer Name Role Phone SAHARA LEE Primary Care Provider [phone] SAHARA LEE Referring Provider [phone] BONNIE GUTIERRES Perinatal Social Worker [phone] ANA ROSA ESTRADA Neurosurgeon [phone] FIDENCIO JOSÉ Marine Rigger BETTE SOFIA Frontend Engineer GABI ROBBINS Urologist Assessment Encounter Date Assessment [...] Lab glycohemo globin, total, blood 2024 025 [facility], [address], [place], [address], 12/29/2024 17:56:33 microalbu min, urine 2024 025 [facility], [address], [place], [address], 12/29/2024 17:56:33 lipid panel, serum 2024 025 [facility], [address], [place], [address], 12/29/2024 17:56:31 CBC w/ auto diff 2024 025 [facility], [address], [place], [address], 12/29/2024 17:56:31 TSH, serum or plasma 2024 025 [facility], [address], [place], [address], 12/29/2024 17:56:34 CMP, serum or plasma 2024 025 [facility], [address], [place], [address], 12/29/2024 17:56:32 glycohemo globin, total, blood 2024 025 [facility], [address], [place], [address], 10/14/2024 15:03:11 microalbu min, urine 2024 [facility], [address], [place], [address], 01/02/2025 08:03:52 lipid panel, serum 2024 025 [facility], [address], [place], [address], 01/02/2025 08:03:50 CBC w/ auto diff 2024 025 [facility], [address], [place], [address], 01/02/2025 08:03:54 TSH, serum or plasma 2024 025 [facility], [address], [place], [address], 01/02/2025 08:03:55 CMP, serum or plasma 2024 025 [facility], [address], [place], [address], 01/02/2025 08:03:51 glycohemo globin, total, blood 2023 024 [facility], [address], [place], [address], 09/14/2024 09:45:27 microalbu min, urine 2023 024 [facility], [address], [place], [address], 09/14/2024 09:45:27 lipid panel, serum 2023 024 [facility], [address], [place], [address], 09/12/2024 07:48:24 CBC w/ auto diff 2023 024 [facility], [address], [place], [address], 09/12/2024 07:48:27 TSH, serum or plasma 2023 024 [facility], [address], [place], [address], 09/12/2024 07:48:29 CMP, serum or plasma 2023 024 [facility], [address], [place], [address], 09/12/2024 07:48:26 Referral rheumatol ogist referral - Please call patient to schedule an appointme nt. Thank you. 2024 025 ERYN [facility] (Rheumatology ), [address], [place], [address], 01/04/2025 11:05:20 urologist referral - Please call patient to schedule an appointme nt. Thank you. 2024 025 ERYN Freeman MD, [address], [place], [address], 01/04/2025 11:10:35 nephrolog ist referral - Please call patient to schedule an appointme nt. Thank you. 2024 025 ERYN Avila MD (Nephrology, [address], [address], [place], [address], 01/04/2025 11:10:35 podiatris t referral - Please call patient to schedule an appointme nt. Thank you. 2024 025 VIDHI José DPM, [address], [address], [place], [address], 12/30/2024 18:13:32 nephrolog ist referral - Please call patient to schedule. 2024 025 Melvin Avila MD (Nephrology, [address], [address], [place], [address], 10/15/2024 17:38:21 podiatris t referral 2024 025 [email or web address] Fidencio José DPM, [address], [address], [place], [address], 10/15/2024 17:38:12 nephrolog ist referral - Please call patient to schedule. 2023 024 VIDHI Avila MD (Nephrology, [address], [address], [place], [address], 02/09/2025 04:20:19 podiatris t referral 2023 024 [email or web address] Fidencio José DPM, [address], [address], [place], [address], 08/13/2024 19:42:08 Procedures upper endoscopy procedure (EGD) (PROC) 2023 024 [email or web address] Bonnie Gutierres MD, [address], [address], [place], [address], 08/13/2024 19:41:28 Surgeries None recorded. Imaging US, liver - Please call patient to schedule. 2024 025 [facility], [address], [place], [address], 10/14/2024 15:39:31 US, liver - Please call patient to schedule. 2023 024 [email or web address] [facility], [address], [place], [address], 09/21/2024 13:32:50 Medication Orders None recorded. Patient TargetsNo targets recorded. Patient Instructions Encounter Date Encounter Id Patient Instructions Last Modified By Organization Details Last Modified Time 09/02/2024 [id number] 1. We changed hi s catheter today he will come back once a month for another catheter change Not available 09/02/2024 12:29:32 10/02/2024 [id number] continue with suprapubic tube change once a month Not available 10/02/2024 13:50:10 Reason for Referral Logistical Engineer Referral for Pr oteinuria Please call patient to schedule. Referring Physician: Sahara Lee Internal Medicine, Encounter Date: 08/12/2024 Marine Rigger Referral for Type 2 diabetes mellitus without complication Referring Physician: Sahara Lee Internal Medicine, Encounter Date: 08/12/2024 Logistical Engineer Referral for Pr oteinuria Please call patient to schedule. Referring Physician: Sara Mauricio Medicine, Encounter Date: 10/14/2024 Marine Rigger Referral for Type 2 diabetes mellitus without complication Referring Physician: Sahara Lee Internal Medicine, Encounter Date: 10/14/2024 Logistical Engineer Referral for Pr oteinuria Please call patient to schedule an appointment. Thank you. Referring Physician: Sara Mauricio Medicine, Encounter Date: 12/29/2024 Marine Rigger Referral for Type 2 diabetes mellitus without complication Please call patient to schedule an appointment. Thank you. Referring Physician: Sahara Lee Internal Medicine, Encounter Date: 12/29/2024 Urologist Referral for Cysti tis Please call patient to schedule an appointment. Thank you. Referring Physician: Sara Mauricio Medicine, Encounter Date: 12/29/2024 Hospital Librarian Referral for Paget's disease of pelvis Please call patient to schedule an appointment. Thank you. Referring Physician: Sara Mauricio Medicine, Encounter Date: 12/29/2024 Results Created Date Observation Date Name Description Value Unit Range Abnormal Flag Note LastModifiedBy Organization Detail LastModifiedTime 08/25/20 24 08/25/2024 imagi ng/di agnos tic resul t No observ ation record ed. [facility] [address], [place], [address], 08/25/2024 07:02:06 11/03/19 25 11/03/2024 imagi ng/di agnos tic resul t No observ ation record ed. [facility] [address], [place], [address], 11/03/2024 13:09:37 Result Notes None recorded. Problems Name Problem SNOMED Code Status Onset Date Resolution Date Notes Provider Name and Address Organization Details Recorded Time Diabetes mellitus 32013527 Active 2022 Not Available [facility] 4 05:59:13 Hyperlipid emia 10178003 Active 2022 Not Available [facility] 4 05:59:13 Essential hypertensi on 41391058 Active 2022 Not Available [facility] 4 05:59:13 Type 2 diabetes mellitus without complicati on 902132264 Active 2022 Not Available [facility] 4 05:59:13 Urinary incontinen ce 248027246 Active 2022 Not Available [facility] 4 05:59:13 Gastroesop hageal reflux disease without esophagiti s 681863387 Active 2022 Not Available [facility] 4 05:59:13 Moderate recurrent major depression 67917400 Active 2022 Not Available [facility] 4 05:59:13 Coronary arterioscl erosis 91685754 Active 2022 Not Available [facility] 4 05:59:13 Liver function tests outside reference range 773428990 Active 2022 Not Available [facility] 4 05:59:13 Microalbum inuria 434917980 Active 12/28/ 2023 Not Available [facility] 4 05:59:13 Osteoarthr itis of hip 886158323 Active 2023 Not Available [facility] 4 05:59:13 Pain of right hip joint 1107967284326 02 Active 2023 Lilia Shiva ATC L null, [place] [facility] 4 11:07:46 Low back pain 417807852 Active 2023 Not Available [facility] 4 05:59:13 Neuropathy 472663973 Active 2023 Indigo Sandoval MA null, [place] [facility] 4 10:11:21 Chronic low back pain 566733180 Active 2023 Indigo Sandoval MA null, [place] [facility] 4 11:34:38 Pain of left hip joint 4693514950606 00 Active 2023 SARAH Quezada null, [place] [facility] 4 10:20:52 Blood in urine 21234221 Active 2023 Indigo Sandoval MA null, [place] [facility] 4 12:47:55 Cystitis 79295174 Active 2023 Sahara guzman MD [address], [address], [place], [address] , [facility] 4 16:14:14 Steatotic liver disease 149353601 Active 2023 Sahara guzman MD [address], [address], [place], [address] , [facility] 4 09:40:39 Paget's disease-[facility] 058106283 Active 2023 Indigo Sandoval MA null, [place] [facility] 4 16:11:38 Syncope 865739056 Active 2023 Sahara guzman MD [address], [address], [place], [address] , [facility] 4 13:34:49 Anemia 625337508 Active 2023 Sahara guzman MD [address], [address], [place], [address] , [facility] 4 10:06:31 Peripheral neuropathy due to type 2 diabetes mellitus 7896649293528 Active 2023 Myron Guido DPM [address], [address], [place], [address] , [place] [facility] 4 08:48:27 Onychomyco sis of toenails 728021864 Active 2023 Myron Guido DPM [address], [address], [place], [address] , [facility] 4 08:48:34 Chronic retention of urine 074918599 Active 2023 Gabi Robbins MD [address], [address], [place], [address] , [facility] 4 16:20:24 Proteinuri a 89304558 Active 2023 Sahara guzman MD [address], [address], [place], [address] , [facility] 4 12:09:03 Paget's disease of pelvis 277624267 Active 2024 Sahara guzman MD [address], [address], [place], [address] , [place] [facility] 5 17:54:58 Osteitis deformans 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 14:37:47 Notes:Some problems listed i n Documents: #[id number], #[id number], #[id number] could not be added to this patient's chart. Please review these documents and add these problems to the patient's chart manually as needed. Problem Notes None recorded. Procedures Surgical History Date Name Laterality Status Provider Name and Address Organization Details Recorded Time 09/23/19 Pacemaker completed SARAH Hadley [facility] 10/14/2024 14:42:19 09/02/20 24 Cath Change completed Roseanne Cruz CMA [facility] [employer] [facility] 09/02/2024 12:25:10 07/17/20 Nail Debridement completed Myron Guido DPM [address], [place], [address], [facility] [employer] [facility] 07/20/2024 08:48:20 07/14/20 24 Transitional_Care_M anagement completed Sahara Lee MD [address], [address], [place], [address], [facility] [employer] [facility] 07/14/2024 10:59:07 07/01/20 Colonoscopy completed Yin Westfall Carmenza [facility] [employer] [facility] 07/14/2024 09:56:57 12/26/19 Medicare Wellness CPT Code, subsequent completed Camryn Donahue [facility] [employer] [facility] 12/24/2023 13:07:44 Tonsillectomy completed Yin Westfall Carmenza [facility] 08/27/2023 14:48:35 Cholecystectomy completed Yin Westfall [facility] 08/27/2023 14:48:41 total knee replacement completed Yin Westfall Carmenza [facility] [employer] [facility] 08/27/2023 14:49:12 Orthopedic Surgery completed Yin Westfall Carmenza [facility] 08/27/2023 14:49:39 Bladder completed Yin Westfall [facility] [employer] [facility] 12/29/2024 17:22:13 Imaging Results Imaging Date Name Status LastModified by Organiz ation Details LastModified Time 08/25/2024 imaging/diagn ostic result active [facility] [address], [place], [address], 08/25/2024 07:02:06 11/03/2024 imaging/diagn ostic result active [facility] [address], [place], [address], 11/03/2024 13:09:37 Procedure Notes None recorded. Medical Equipment None Reported. Allergies Allergen ID Allergen Name Allergen Category Reaction Reaction Severity Criticality Documentation Date Start Date Code Code System Note Provider Name and Address Organization Details Recorded Time 02828 morphine medicatio n Not available Not available Not available 06/04/2024 7052 RxNorm ROGER Abdi, [facility] 4 09:55:19 12820 aspirin medicatio n Not available Not available Not available 06/04/2024 1191 ROGER Talavera, [facility] 4 09:55:37 39392 amitripty line medicatio n Not available Not available Not available 06/04/2024 704 RxROGER Jackson, [facility] 4 09:55:45 Medications Name Sig Start Date [...] Available Myrbetriq 50 mg tablet,exte nded release TAKE 1 TABLET BY MOUTH DAILY active Not Available Not Available No t Available apixaban 5 mg tablet Take 0.5 tablets [...] Updated DateTime 4 185.42 cm 26.7 kg/m2 78483.6 6 g 97.7 [degF] 78 /min 100 mm[Hg] 54 mm[Hg] SARAH Hadley [employer] [facility] 4 11:46:27 Date Recorded Body height Heart rate Body temperature Body mass index (BMI) Body weight Oxygen saturation Oxygen saturation in Arterial blood by Pulse oximetry Systolic blood pressure Diastolic blood pressure Provider Name and Address Organization Details Last Updated DateTime 4 185.42 cm 80 /min 97 [degF] 27.7 kg/m2 91052.4 g 94 % 94 % 147 mm[Hg] 65 mm[Hg] Roseanne Cruz CMA [employer] 4 10:39:12 Date Recorded Body height Provider Name an d Address Organization Details Last Updated DateTime 10/02/2024 185.42 cm Roseanne Cruz CMA [employer] 10/02/2024 11:08:37 Date Recorded Body height Body mass index (BMI) Body weight Body temperature Heart rate Systolic blood pressure Diastolic blood pressure Provider Name and Address Organization Details Last Updated DateTime 5 185.42 cm 27.2 kg/m2 33758.0 3 g 97.9 [degF] 78 /min 120 mm[Hg] 60 mm[Hg] SARAH Hadley [employer] [facility] 5 14:48:27 Date Recorded Body height Body mass index (BMI) Body weight Body temperature Heart rate Systolic blood pressure Diastolic blood pressure Provider Name and Address Organization Details Last Updated DateTime 5 185.42 cm 29 kg/m2 80370.3 2 g 97.2 [degF] 78 /min 136 mm[Hg] 62 mm[Hg] SARAH Hadley [employer] [facility] 5 17:24:18 Social History Question Answer Notes LastModified by Organization Details LastModified Time Tobacco Smoking Status Former Smoker quit age 41 SARAH Had[place], [place] [employer] [facility] 10/14/2024 14:44:47 Do You Have An Advance Directive? Yes Information not available 08/27/2023 Are You Blind [...] Or The Highest Degree You Have Received? [id number] Information not available 08/27/2023 What Is The [...] You Able To Care For Yourself? Yes [email or web address] Information not available 12/26/2023 Are You Blind Or Do Yo Have Difficulty Seeing? No [email or web address] Information not available 12/26/2023 Are You Deaf Or Do You Have Serious Difficulty Hearing? Yes [email or web address] Information not available 12/26/2023 Live Alone Of With Others? 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 No Information not available 06/04/2024 Has Tobacco Cessation Counseling Been Provided? No N/a Information not available 08/27/2023 Have You Recently Traveled Abroad? No Information not available 08/27/2023 Do You Have Difficulty Walking Or Climbing Stairs? No Information not available 08/27/2023 Sex: Male Functional Status Question Answer Note LastModified by Organizat ion Details LastModified Time Do you use any illicit or recreational drugs? No Information not available 08/27/2023 Do you or have you ever used any other forms of tobacco or nicotine? No Information not available 08/27/2023 What is your level of alcohol consumption? None Information not available 08/27/2023 Are you currently employed? No Information not available 08/27/2023 Do you [...] Mental Status Question Answer Note LastModified by Organizat ion Details LastModified Time Do you feel stressed (tense, restless, nervous, or anxious, or unable to sleep at night)? [id number] Information not available 08/27/2023 Do you have difficulty concentrating, remembering or making decisions? Yes Information no t available 08/27/2023 Family History Relationship Description Onset Age of this Age Resolved Age Notes LastModified by Organization Details LastModified Time Son Aortic valve stenosis 10 [email or web address] Not available 09/02 10:03:12 Sister Diabetes mellitus Not available 2022 14:42:08 Mother Myocardial infarction Not available 08/27 14:42:20 Mother Heart disease [email or web address] Not available 02/2024 11:06:02 Father Leukemia [email or web address] Not availab le 09/02/2024 10:03:12 Brother Diabetes mellitus Not available 2022 14:42:57 Brother Myocardial infarction Not available 08/27 14:43:01 Medical History Condition Response NERVE DISEASE N BLINDNESS N RHEUMATIC FEVER N KIDNEY STONES N BLADDER PROBLEMS N MRSA N OTHER # 1 N POLIO N LUNG DISEASE/DISORDER N HISTORY OF DRUG ABUSE N COPD N RADIATION / CHEMOTHERAPY N Other # 2 N BLOOD DISEASES [...] have Advance directive? N ADDICTION CONCERNS N ENDOMETRIOSIS N Impotence N USE OF BLOOD THINNERS Y SKIN PROBLEMS N GASTROINTESTINAL DISORDER N PERIPHERAL VASCULAR DISEASE N MUSCLE,JOINT OR BONE PROBLEMS N GASTROINTESTINAL BLEEDING N BLOOD CLOTS Y ASTHMA N Abdominal Pain N CATARACTS N ARTERIAL INSUFFICIENCY N ERECTILE DYSFUNCTION N VARICOSITIES N GI PROBLEMS N Low Testosterone N INFERTILITY N AIDS/HIV N CHEMOTHERAPY / RADIATION N LIVER DISEASE N MALE HYPOGONADISM N HYPERTENSION N Deficiency N TOURETTE'S N ANXIETY DISORDER N BLOOD TRANSFUSION N ANEMIA/BLOOD DISORDER N CHRONIC EAR INFECTIONS N TUBERCULOSIS N GLAUCOMA N FOOT PROBLEM N DIVERTICULITIS N CHICKENPOX N SLEEP APNEA N BACK INJECTIONS N ALLERGIES/HAYFEVER N INFECTIOUS DISEASE N HEART ARRHYTHMIA N PROSTATE N ESRD N INSOMNIA N HIGH CHOLESTEROL / HYPERLIPIDEMIA Y HYPERTHYROIDISM N EYE PROBLEMS N PVD N EDEMA N CHRONIC PAIN [...] N ALZHEIMER'S DISEASE N Brain Problems N HERPES N DEMENTIA N HEADACHES/MIGRAINES N SEIZURES/EPILEPSY N VASCULAR DISEASE N PACEMAKER N DIZZINESS N HEART DISEASE/HEART PROBLEMS N KIDNEY DISEASE N MULTIPLE SCLEROSIS N NEUROPSYCHOLOGICAL N CARDIAC ARRHYTHMIA N CANCER: SPECIFY N ATRIAL FIBRILLATION N Gall Stones N PULMONARY EMBOLISM N AUTOIMMUNE DISEASE N Past Encounters Encounter ID Performer Location Encounter Start Date Encounter Closed Date Diagnosis/Indication Diagnosis SNOMED-CT Code Diagnosis ICD10 Code Diagnosis Note [id number] Sahara guzman MD [facility] Internal Med [facility] [address] [facility] [address] [place] [address] 08/27/2023 14:08:20 08/27/2023 15:23:27 Screening - NAD 263322997 Z13.9 C-scope: Get this done Get yearly flu shotGet tdap if not doneGet COVID 19 vaccineGet PCV #20Get Shingrix and RSV vaccinesHe has declined all his vaccines 08/27/2023 RTC in 4 months, do labs, ER if worse, he and his son verbalized his understand ing of the above Essential hypertension 31650263 I10 On lisinopril 2.5mg dailyGet labsGet a referral to cardiology Hyperlipidemia 06295709 E78.5 On ASAOn atorvastat in 80mg 1/2 tab dailyGet labs 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 335350764 E11.9 On synjardy XR 5-500mg bidOn trulicity 1.5mg weeklyGet labs Urinary incontinence 165 005595 R32 On flomaxOn myrbetriq Screening for malignant neoplasm of colon 619120868 Z12.11 Screening for malignant neoplasm of prostate 234671504 Z12.5 Ex-cigarette smoker 2810 22564 Z87.891 Get US AAA Gastroesop hageal reflux disease without esophagitis 095348791 K21.9 On omeprazole 20mg daily, take PRN, get EGD Moderate r ecurrent major depression 66800506 F33.1 States that he did use to have PTSD , [facility] used to be on medication s, but has not taken these, used to see psychiatry in the past, declines any meds or referrals, states that he is doing very well, not suicidal or homicidal Coronary arteriosclerosis 50345768 I25.10 On eliquisSho uld NOT be on coumadinNe eds to see cardiology [id number] Mode Jerez MD [facility] [place] [address] [place] [address] 10/29/2023 10:34:14 10/29/2023 11:28:20 Pain of right hip joint 0321676556 82772 M25.551 Low back pain 950418661 M54.50 [id number] Mode Jerez MD [facility] [place] [address] [place] [address] 11/26/2023 10:10:38 11/26/2023 11:16:18 Pain of left hip joint 8089821055 11118 M25.552 Low back pain 451214383 M54.50 [id number] Sahara guzman MD [facility] Internal Med [address] [facility] [place] [address] 12/26/2023 17:21:50 12/26/2023 18:05:09 Screening - NAD 142675096 Z13.9 C-scope: Get this done Get yearly flu shotGet tdap if not doneGet COVID 19 vaccineGet PCV #20Get Shingrix and RSV vaccinesHe has declined all his vaccines 08/27/2023 RTC in 4 months, do labs, ER if worse, he verbalized his understand ing of the above Essential hypertension 74786720 I10 On lisinopril 2.5mg dailyGet labsGet a referral to cardiology Hyperlipidemia 50422210 E78.5 On ASAOn atorvastat in 80mg 1/2 tab dailyGet labs 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 880602132 E11.9 On metformin ER 500mg bidOn synjardy XR 5-500mg bid, d/c this as he is already on metforminO n trulicity 1.5mg weeklyGet labs Urinary incontinence 165 328322 R32 On flomaxOn myrbetriq Screening for malignant neoplasm of colon 581077569 Z12.11 Ex-cigarette smoker 2810 24907 Z87.891 AAA: 10/14/2023 : Neg Gastroesop hageal reflux disease without esophagitis 005467605 K21.9 On omeprazole 20mg daily, take PRN, get EGD Moderate r ecurrent major depression 89385623 F33.1 States that he did use to have [facility] used to be on medication s, but has not taken these, used to see psychiatry in the past, declines any meds or referrals, states that he is doing very well, not suicidal or homicidal Coronary arteriosclerosis 30155339 I25.10 On eliquisSho uld NOT be on coumadinNe eds to see cardiology Cystitis 51590600 N30.90 S/p ER 12/05/2023 , s/p CT A/P 12/05/2023 Referred to urology Pain of le ft hip joint [id number] 06076 M25.552 [facility] 11/26/2023 Dr Jerez/Magy 11/26/2023 , treated with PT Low back pain 670591448 M54.50 Addnedum 11/26/2023 See case on 11/14/2023 , tramadol sent On methocarbo mol, see [facility] note, should stop thisAlso stop any NSAIDs Referred to Dr Payne ortho spine surgeonAls o to see Dr Jerez on 01/01/2024 Adult heal th examination 799714736 Z00.00 Screening for disorder 186534230 Z13.9 [id number] Sahara guzman MD [facility] [address] [facility] [address] [place] [address] 06/04/2024 09:47:52 06/04/2024 10:38:05 Screening - NAD 407379479 Z13.9 C-scope: Get this done Get yearly flu shotGet tdap if not doneGet COVID 19 vaccineGet PCV #20Get Shingrix and RSV vaccinesHe has declined all his vaccines 08/27/2023 RTC in 4 months, do labs, ER if worse, he verbalized his understand ing of the above Essential hypertension 45324963 I10 On lisinopril 2.5mg dailyGet labsGet a referral to cardiology Hyperlipidemia 75052257 E78.5 On ASAOn atorvastat in 80mg 1/2 tab dailyGet labs 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 803425885 E11.9 On metformin ER 500mg bidOn synjardy XR 5-500mg bid, d/c this as he is already on metforminO n trulicity 1.5mg weeklyGet labs Urinary incontinence 165 643300 R32 On flomaxOn myrbetriq 12/05/2023 : [facility] ER s/p fall hematuria, CT A/P CT A/P 01/29/2024 d/t hematuria from recent cystoscopy [place] [facility] 03/29/2024 :CT A/P: 03/29/2024 : L hydronephr osis Bladder Bx: 04/10/2024 : Dr Freeman Screening for malignant neoplasm of colon 668769613 Z12.11 Ex-cigarette smoker 2810 28324 Z87.891 AAA: 10/14/2023 : Neg Gastroesop hageal reflux disease without esophagitis 738513183 K21.9 On omeprazole 20mg daily, take PRN, get EGD Moderate r ecurrent major depression 46644000 F33.1 States that he did use to have [facility] , [facility], used to be on medication s, but has not taken these, used to see psychiatry in the past, declines any meds or referrals, states that he is doing very well, not suicidal or homicidal Coronary arteriosclerosis 51714123 I25.10 On eliquisSho uld NOT be on coumadinNe eds to see cardiology Cystitis 54708875 N30.90 S/p ER 12/05/2023 , s/p CT A/P 12/05/[address] A/P 01/29/2024 d/t hematuria from recent cystoscopy [place] [facility] 03/29/2024 :CT A/P: 03/29/2024 : L hydronephr osis Bladder Bx: 04/10/2024 : Dr Freeman Pain of le ft hip joint 2418570215 65724 M25.552 [place] [facility] 11/26/2023 Dr Jerez/Magy 11/26/2023 , treated with PT Low back pain 394658088 M54.50 Addnedum 11/26/2023 See case on 11/14/2023 , tramadol sent On methocarbo mol, see [facility] note, should stop thisAlso stop any NSAIDs Referred to Dr Payne ortho spine surgeonAls o to see Dr Jerez on 01/01/2024 MRI T/C spine 05/01/2024 Steatotic liver disease 927482580 K76.0 12/05/2023 : CT A/PUS liver 10/14/2023 Get labs Screening for malignant neoplasm of prostate 700389096 Z12.5 [id number] Sahara guzman MD [facility] Internal Med [facility] [address] [facility], [facility] [address] [place] [address] 07/14/2024 09:47:47 07/14/2024 10:40:52 Screening - NAD 900508724 Z13.9 C-scope: Get this done Get yearly flu shot, declined 07/14/2024 Get tdap if not doneGet COVID 19 vaccineGet PCV #20Get Shingrix and RSV vaccinesHe has declined all his vaccines 08/27/2023 , 07/14/2024 RTC in 4 months, do labs, ER if worse, he and his son did verbalize his understand ing of the above Essential hypertension 07692485 I10 On lisinopril 2.5mg daily, do not take till seen by cardiology d/t recent hospitaliz ation for syncope, d/c 07/08/2024 Get labsGet a referral to cardiology Hyperlipidemia 32832937 E78.5 On ASAOn atorvastat in 80mg 1/2 tab dailyGet labs 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 910776112 E11.9 On metformin ER 500mg bidOn synjardy XR 5-500mg bid, d/c this as he is already on metforminO n trulicity 1.5mg weeklyGet labs Urinary incontinence 165 144324 R32 On flomaxOn myrbetriq 12/05/2023 : [facility] ER s/p fall hematuria, CT A/P CT A/P 01/29/2024 d/t hematuria from recent cystoscopy [facility] 03/29/2024 :CT A/P: 03/29/2024 : L hydronephr osis Bladder Bx: 04/10/2024 : Dr Freeman Screening for malignant neoplasm of colon 595929680 Z12.11 Ex-cigarette smoker 2810 64724 Z87.891 [place] AAA: 10/14/2023 : Neg Gastroesop hageal reflux disease without esophagitis 031391295 K21.9 On omeprazole 20mg daily, take PRN, get EGD Moderate r ecurrent major depression 36904611 F33.1 States that he did use to have [facility] , [facility], used to be on medication s, but has not taken these, used to see psychiatry in the past, declines any meds or referrals, states that he is doing very well, not suicidal or homicidal Coronary arteriosclerosis 93160197 I25.10 On eliquis, restarted on at D/c from [facility] on 07/08/2024 Should NOT be on coumadinNe eds to see cardiology Cystitis 40349083 N30.90 S/p ER 12/05/2023 , s/p CT A/P 12/05/[address] A/P 01/29/2024 d/t hematuria from recent cystoscopy [facility] 03/29/2024 :CT A/P: 03/29/2024 : L hydronephr osis Bladder Bx: 04/10/2024 : Dr Freeman Seen in the ER and admitted to [place] and D/c 07/08/2024 : Noted to have hematuria, has to see Dr Cantrell on flomax 0.4mg daily Pain of le ft hip joint 4505549990 77307 M25.552 [facility] 11/26/2023 Dr Jerez/Magy 11/26/2023 , treated with PT Low back pain 482610396 M54.50 Addnedum 11/26/2023 See case on 11/14/2023 , tramadol sent On methocarbo mol, see [facility] note, should stop thisAlso stop any NSAIDs Referred to Dr Payne ortho spine surgeonAls o to see Dr Jerez on 01/01/2024 MRI T/C spine 05/01/2024 On gabapentin 300mg tid Steatotic liver disease 682499139 K76.0 12/05/2023 : CT A/PUS liver 10/14/2023 Syncope 397451673 R55 S/p D/c 07/08/2024 : [facility] brain 07/04/2024 CT C-spine 07/04/2024 XR Chest 07/04/2024 ECHO 07/04/2024 : 55-60%MRI brain 07/07/2024 : [facility] eds to see Dr Freeman Transition of care 48774 86040 105 Z75.8 Anemia 955970754 D64.9 On iron 325mg daily, get labs Neuropathy 281072822 G62 [address] Mills anS/p EMG [id number] Myron Guido DPM [facility] Podiatry [place] [address] [address] 07/17/2024 09:50:02 07/21/2024 09:34:00 Peripheral neuropathy due to type 2 diabetes mellitus 6228337065 107 E11.42 Onychomyco sis of toenails 482261149 B35.1 [id number] Gabi Robbins MD [facility] E[facility] [place] [address] [place] [address] 08/07/2024 15:13:33 08/07/2024 16:26:29 Chronic retention of urine 824729435 R33.8 [id number] Sahara guzman MD [facility] Primary Care [facility] [address] [facility] [address] [place] [address] 08/12/2024 11:22:19 08/12/2024 12:43:30 Screening - NAD 058968487 Z13.9 C-scope: Get this done Get yearly [...] apt with urology and cardiology Essential hypertension 26364923 I10 On lisinopril 2.5mg daily, do not take till seen by cardiology d/t recent hospitaliz ation for syncope, d/c 07/08/2024 Get labsGet a referral to cardiology Hyperlipidemia 55627473 E78.5 On ASAOn atorvastat in 80mg 1/2 tab dailyGet labs 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 664940315 E11.9 On metformin ER 500mg bidOn synjardy XR 5-500mg bid, d/c this as he is already on metforminO n trulicity 1.5mg weeklyGet labs Urinary incontinence 165 665353 R32 On flomaxOn myrbetriq 12/05/2023 : [facility] ER s/p fall hematuria, CT A/P CT A/P 01/29/2024 d/t hematuria from recent cystoscopy [facility] 03/29/2024 :CT A/P: 03/29/2024 : L hydronephr osis Bladder Bx: 04/10/2024 : Dr Freeman Ex-cigarette smoker 2810 13826 Z87.891 [place] AAA: 10/14/2023 : Neg Coronary arteriosclerosis 35907748 I25.10 On eliquis, restarted on at D/c from [facility] on 07/08/2024 Should NOT be on coumadin Dr Sofia [facility] 08/06/2024 : On eliquis, and has to see Dr Gee Gastrojohn hageal reflux disease without esophagitis 102304055 K21.9 On omeprazole 20mg daily, take PRN, get EGD Moderate r ecurrent major depression 07605164 F33.1 States that he did use to have [facility] , [facility], used to be on medication s, but has not taken these, used to see psychiatry in the past, declines any meds or referrals, states that he is doing very well, not suicidal or homicidal Cystitis 58822754 N30.90 On flomaxOn Myrbetriq 50mg daily S/p ER 12/05/2023 , s/p CT A/P 12/05/2023 Referred to urologyCT A/P 01/29/2024 d/t hematuria from recent cystoscopy [facility] 03/29/2024 :CT A/P: 03/29/2024 : L hydronephr osisBladde r Bx: 04/10/2024 : Dr Edward in the ER and admitted to [place] and D/c 07/08/2024 : Noted to have hematuria, has to see Dr Pete Robbins 08/07/2204 : to get monthly Omer Cath done Pain of le ft hip joint 7038851553 54591 M25.552 [facility] 11/26/2023 Dr Jerez/Magy 11/26/2023 , treated with PT Low back pain 461740372 M54.50 Addnedum 11/26/2023 See case on 11/14/2023 , tramadol sent On methocarbo mol, see [facility] note, should stop thisAlso stop any NSAIDs Referred to Dr Payne ortho spine surgeonAls o to see Dr Jerez on 01/01/2024 MRI T/C spine 05/01/2024 On gabapentin 300mg tid Steatotic liver disease 768929709 K76.0 12/05/2023 : CT A/PUS liver 10/14/2023 Hep panel/GGT: Neg 06/04/2024 Repeat US liver, ordered 08/12/2024 Syncope 428879898 R55 [facility] 07/04/2024 XR Chest 07/04/2024 ECHO 07/04/2024 : 55-60%MRI brain 07/07/2024 : [facility] OV 08/12/2024 : Does well now Anemia 422383074 D64.9 On iron 325mg daily, get labs Neuropathy 239608409 G62 .[address] Mills anS/p EMG Proteinuria 34634276 R80 .9 Refer to nephrology [id number] Gabi Robbins MD [facility] E[facility] [place] [address] [facility] [address] [place] [address] 09/02/2024 09:59:47 09/02/2024 10:35:07 Chronic retention of urine 027710580 R33.8 [id number] Gabi Robbins MD [facility] ENT [place] [address] [place] [address] 10/02/2024 10:44:50 10/02/2024 11:27:52 Chronic retention of urine 125144633 R33.8 [id number] Sahara guzman MD [facility] [address] [facility] [address] [place] [address] 10/14/2024 14:34:18 10/14/2024 15:06:28 Screening - NAD 539712601 Z13.9 C-scope: Get this done Get yearly [...] apt with urology and cardiology Essential hypertension 79279491 I10 Not on lisinopril 2.5mg daily, do not take till seen by cardiology d/t recent hospitaliz ation for syncope, d/c 07/08/2024 Get labs Hyperlipidemia 15046263 E78.5 On ASAOn atorvastat in 80mg 1/2 tab dailyGet labs 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 377725384 E11.9 On metformin ER 500mg bidOn synjardy XR 5-500mg bid, d/c this as he is already on metforminO n trulicity 1.5mg weeklyGet labs Urinary incontinence 165 590513 R32 On flomaxOn myrbetriq 12/05/2023 : [facility] ER s/p fall hematuria, CT A/P CT A/P 01/29/2024 d/t hematuria from recent cystoscopy [facility] 03/29/2024 :CT A/P: 03/29/2024 : L hydronephr osis Bladder Bx: 04/10/2024 : Dr Parres Ex-cigarette smoker 4011 59357 Z87.891 [place] AAA: 10/14/2023 : Neg Coronary arteriosclerosis 40262093 I25.10 On eliquis, restarted on at D/c from [facility] on 07/08/2024 Should NOT be on coumadin OV 10/14/2024 :Dr Sofia [facility] 08/06/2024 : On eliquis, and has to see Dr Gee and is s/p PCM insertion Gastroesop hageal reflux disease without esophagitis 867677523 K21.9 On omeprazole 20mg daily, take PRN,Get EGD report Moderate r ecurrent major depression 53547012 F33.1 States that he did use to have [facility] , [facility], used to be on medication s, but has not taken these, used to see psychiatry in the past, declines any meds or referrals, states that he is doing very well, not suicidal or homicidal Cystitis 30153995 N30.90 On flomaxOn Myrbetriq 50mg daily S/p ER 12/05/2023 , s/p CT A/P 12/05/2023 Referred to urologyCT A/P 01/29/2024 d/t hematuria from recent cystoscopy [facility] 03/29/2024 :CT A/P: 03/29/2024 : L hydronephr osisBladde r Bx: 04/10/2024 : Dr Edward in the ER and admitted to [place] and D/c 07/08/2024 : Noted to have hematuria, has to see Dr Pete Robbins 08/07/2204 : to get monthly Omer Cath done Pain of le ft hip joint 1050468923 61558 M25.552 [place] [facility] 11/26/2023 Dr Jerez/Magy 11/26/2023 , treated with PT Low back pain 403738053 M54.50 Addnedum 11/26/2023 See case on 11/14/2023 , tramadol sent On methocarbo mol, see [facility] note, should stop thisAlso stop any NSAIDs Referred to Dr Payne ortho spine surgeonAls o to see Dr Jerez on 01/01/2024 MRI T/C spine 05/01/2024 On gabapentin 300mg tid Steatotic liver disease 149866134 K76.0 12/05/2023 : CT A/PUS liver 10/14/2023 Hep panel/GGT: Neg 06/04/2024 Repeat US liver, ordered 08/12/2024 Syncope 574529623 R55 S/[facility] 07/04/2024 XR Chest 07/04/2024 ECHO 07/04/2024 : 55-60%MRI brain 07/07/2024 : [facility] OV 08/12/2024 : Does well now Anemia 998163164 D64.9 On iron 325mg daily, get labs Neuropathy 625837849 G62 .[address] Mills anS/p EMG Proteinuria 88922193 R80 .9 Refer to nephrology Screening for malignant neoplasm of colon 377474456 Z12.11 Get C-scope report [id number] Sahara guzman MD [facility] Internal Med [facility] [address] [facility], [facility] [address] [place] [address] 12/29/2024 16:37:02 12/29/2024 18:14:17 Screening - NAD 826217422 Z13.9 C-scope/EG : Dr Aguilar Get yearly flu shot, declined 07/14/2024 Get tdap if not doneGet COVID 19 vaccineGet PCV #20Get Shingrix and RSV vaccinesHe has declined all his vaccines 08/27/2023 , 07/14/2024 RTC in 2 months, do labs, ER if worse, he and his son did verbalize his understand ing of the above Essential hypertension 58373527 I10 Not on lisinopril 2.5mg dailyGet labs Hyperlipidemia 15905864 E78.5 On ASAOn atorvastat in 80mg 1/2 tab dailyGet labs 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 ER s/p fall hematuria, CT A/P CT A/P 01/29/2024 d/t hematuria from recent cystoscopy [facility] 03/29/2024 :CT A/P: 03/29/2024 : L hydronephr osis Bladder Bx: 04/10/2024 : Dr Freeman Ex-cigarette smoker 2810 89212 Z87.891 [place] AAA: 10/14/2023 : Neg Coronary arteriosclerosis 07944941 I25.10 On eliquis, restarted on at D/c from [facility] on 07/08/2024 Should NOT be on coumadin OV 10/14/2024 :Dr Sofia [facility] 08/06/2024 : On eliquis, and has to see Dr Gee and is s/p PCM insertion OV 12/29/2024 : Keep apt with cardiology Gastroesop hageal reflux disease without esophagitis 910032025 K21.9 On omeprazole 20mg daily, take PRN,Get EGD report Moderate r ecurrent major depression 65917718 F33.1 States that he did use to have [facility] , [facility], used to be on medication s, but has not taken these, used to see psychiatry in the past, declines any meds or referrals, states that he is doing very well, not suicidal or homicidal Cystitis 70836301 N30.90 On flomaxOn Myrbetriq 50mg daily S/p ER 12/05/2023 , s/p CT A/P 12/05/2023 Referred to urologyCT A/P 01/29/2024 d/t hematuria from recent cystoscopy [facility] 03/29/2024 :CT A/P: 03/29/2024 : L hydronephr osisBladde r Bx: 04/10/2024 : Dr Edward in the ER and admitted to [place] and D/c 07/08/2024 : Noted to have hematuria, has to see Dr Pete Robbins 08/07/2204 : to get monthly Omer Cath done OV 12/29/2024 : Now should see urology, referred Pain of le ft hip joint 9329952627 65761 M25.552 [place] [facility] 11/26/2023 Dr Jerez/Magy 11/26/2023 , treated with PT Low back pain 320123935 M54.50 Addnedum 11/26/2023 See case on 11/14/2023 , tramadol sent On methocarbo mol, see [facility] note, should stop thisAlso stop any NSAIDs Referred to Dr Payne ortho spine surgeonAls o to see Dr Jerez on 01/01/2024 MRI T/C spine 05/01/2024 On gabapentin 300mg tid Steatotic liver disease 697187468 K76.0 12/05/2023 : CT A/PUS liver 10/14/2023 Hep panel/GGT: Neg 06/04/2024 US liver 11/03/2024 : Neg Syncope 987506522 R55 [facility] 07/04/2024 XR Chest 07/04/2024 ECHO 07/04/2024 : 55-60%MRI brain 07/07/2024 : [facility] OV 08/12/2024 : Does well now Anemia 837747630 D64.9 On iron 325mg daily, get labs Neuropathy 337493631 G62 .[address] Mills anS/p EMG Proteinuria 91911829 R80 .9 Refer to nephrology Paget's di sease of pelvis 899687880 M88.88 S/p CT A/P 11/03/2024 Refer to rheumatolo gy Health Concerns Section Related Observation LastModified by Organization Detai ls LastModified Time None Recorded Concern Status LastModified by Organization Details LastModified Time None Recorded Advance Directives Directive Y: Payers Encounter Date Sequence Insurance Name Policy Number Policy Robles Covered Member ID Robles Member ID Guarantor Name 08/12/2024 1 [facility] (MEDICARE REPLACEMENT/A DVANTAGE - PPO) [id number] Cosme Javier [id number] Cosme Javier 08/12/2024 2 [place] [facility] [employer] Cosme Javier [id number] Cosme Javier 09/02/2024 1 [facility] (MEDICARE REPLACEMENT/A DVANTAGE - PPO) [id number] Cosme Javier [id number] Cosme aJvier 09/02/2024 2 [place] [facility] Cosme Javier [id number] Cosme Javier 10/02/2024 1 [facility] (MEDICARE REPLACEMENT/A DVANTAGE - PPO) [id number] Cosme Javier [id number] Cosme Javier 10/02/2024 2 [place] [facility] [place] [facility] Cosme Javier [id number] Cosme Javier 10/14/2024 1 [facility] (MEDICARE REPLACEMENT/A DVANTAGE - PPO) [id number] Cosme Javier [id number] Cosme Javier 10/14/2024 2 [place] OR MEDICARE REPLACEMENT PRIMARY) Cosme Javier [id number] Cosme Javier 12/29/2024 1 [facility] (MEDICARE REPLACEMENT/A DVANTAGE - PPO) [id number] Cosme Javier [id number] Cosme Javier 12/29/2024 2 [place] OR MEDICARE REPLACEMENT PRIMARY) Cosme Javier [id number] Cosme Javier Notes Date Note Type Note [...] hosp f/u apt, he was d/c from [facility] 07/08/2024 for an episode of syncope, was found to have gross hematuria and anemia, now is feeling much better, he is here with his son Abraham, he is now on the iron tablets, denies any hematuria now OV 08/12/2024: Here for his f/u apt, he is doing well today Sahara Lee MD [address] [place] [address], [facility] [address], [place], [address], [place] [facility] [employer] 08/12/2024 19:20:05 09/02/2024 text/html this patient is here for a catheter change. He wants to continue with catheter changes he does not want a suprapubic tube he is doing well Gabi Robbins MD [address], [place], [address], [employer] [facility] 09/02/2024 12:31:40 10/02/2024 text/html this patient is coming in to get a suprapubic tube changed Gabi Robbins MD [address], [place], [address], [employer] 10/02/2024 13:50:45 10/14/2024 text/html OV 08/27/2023:He re [...] hosp f/u apt, he was d/c from [facility] 07/08/2024 for an episode of [...] Dr Marlen LAZARO Sahara Lee MD [address], [place], [address], [employer] [facility] [employer] 10/14/2024 15:04:31 12/29/2024 text/html OV 08/27/2023:He re to establish carePast Hx:HTNHORACEDDMIIUIEx smoker Reviewed social family and surgical historyHere [...] hosp f/u apt, he was d/c from [facility] 07/08/2024 for an episode of [...] now s/p PCM insertion with Dr Gee [facility] OV 12/29/2024: Here for his f/u apt, he is doing well today Sahara Lee MD [address] [place] [address], [place] [address], [place], [address], [facility] [employer] [facility] 12/29/2024 18:25:24
--- OUTSIDE RECORDS SUMMARY | 2025-02-14 06:30 | XMS_ITS | Encounter Summary ---
Author Organization [facility] Address [address] [place] [address] Care Team Providers Care Mold Shaker Name Role Phone DearCampbell DO Primary Care Provider + Encounter Details Date Type Department Care Team (Late st Contact Info) Description 10/26/1999 Outpatient Historical [facility] Internal Medicine [place] [address] [place] [id number] Reg Katz MD Social History Tobacco Use Types Packs/Day Years Used Date Smoking Tobacco: Never Assessed Sex and Gender Information Value Date Recorded Sex Assigned at Not on file Legal Sex Male 5:24 AM CNMT Gender Identity Not on file Sexual Orientation Not on file documented as of this encounter Plan of Treatment Not on file documented as of this encounter Visit Diagnoses Not on filedocumented in this encounter Care Teams Mold Shaker Relationship Specialty Start Date End Date DearCampbell DO [address] [place] [address] PCP - General Family Practice 07/09/22 documented as of this encounter
--- OUTSIDE RECORDS SUMMARY | 2025-02-14 06:30 | XMS_ITS | Referral Summary ---
Author Organization [facility] er Address [address] [place] [address] Care Team Providers Care Physician Compensation Analyst Name Role Phone No, Physician Unavailable Dear, [...] 08/06/2022 Assessment & Plan (08/06/2022 12:13 PM DIRECTOR OF VIDEO ANALYTICS): Chronic, worsening - Refer to vascular surgery [...] 04/17/2022 Assessment & Plan (11/13/2022 2:04 PM DIRECTOR OF VIDEO ANALYTICS): Chronic, R anterior tibial (12/12); unprovoked per [...] surgery Assessment & Plan (08/06/2022 12:10 PM DIRECTOR OF VIDEO ANALYTICS): Chronic, R anterior tibial (12/12); unprovoked per [...] 04/17/2022 Assessment & Plan (08/06/2022 12:14 PM DIRECTOR OF VIDEO ANALYTICS): Chronic Complications: CAD, HTN, Neuropathy A1c: 8.0 [...] 04/17/2022 Assessment & Plan (08/06/2022 12:20 PM DIRECTOR OF VIDEO ANALYTICS): Chronic, controlled - lisinopril 2.5mg Assessment & [...] omeprazole 20mg Coronary artery disease invo lving [place] coronary artery of [place] heart without angina pectoris 04/17/2022 Assessment & [...] Comments Blood Pressure 137/63 11/20/2022 4:30 PM DIRECTOR OF VIDEO ANALYTICS Pulse 65 11/20/2022 4:55 PM DIRECTOR OF VIDEO ANALYTICS Temperature 36 C (96.8 F) 11/20/2022 10:41 AM DIRECTOR OF VIDEO ANALYTICS Respiratory Rate 18 11/20/2022 10:41 AM DIRECTOR OF VIDEO ANALYTICS Oxygen Saturation 100% 11/20/2022 4:55 PM DIRECTOR OF VIDEO ANALYTICS Inhaled Oxygen Concentration - - Weight 104.8 kg (231 lb) 11/20/2022 10:41 AM DIRECTOR OF VIDEO ANALYTICS Height 177.8 cm (5' 10 ) 11/13/2022 1:42 PM DIRECTOR OF VIDEO ANALYTICS Body Mass Index 33.15 11/13/2022 1:42 PM DIRECTOR OF VIDEO ANALYTICS Plan of Treatment Not on file Procedures Procedure Name Priority Date/Time Associated Diagnosis Comments EGFR STAT 11/20/2022 3:11 PM DIRECTOR OF VIDEO ANALYTICS HEMOGLOBIN A1C Routine 11/13/2022 2:20 PM DIRECTOR OF VIDEO ANALYTICS 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, without long-term current use of insulin (HCC) HEPATITIS C RNA, QUANTITATIVE, PCR Routine 05/08/2022 10:08 AM CDT Need for hepatitis C screening test LIPID PANEL Routine 04/17/2022 9:43 AM CDT Coronary artery disease involving [place] coronary artery of [place] heart without angina pectoris ALBUMIN CREATININE RATIO, URINE Routine 04/17/2022 9:43 AM CDT 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, without long-term current use of insulin (HCC) OCCULT BLOOD, FECAL (FIT) Routine 11/22/2017 11:15 AM DIRECTOR OF VIDEO ANALYTICS from Last 3 Months or Most Recently Relevant to Health Maintenance Results * eGFR (11/20/2022 3:11 PM DIRECTOR OF VIDEO ANALYTICS) Pathologist [facility] eGFR 95 mL/min/1. 73 m2 [facility] Comment: Interpretive Data Reference Interval Normal [...] last reviewed 2021. Blood 11/20/2022 3:11 PM DIRECTOR OF VIDEO ANALYTICS 11/20/2022 3:16 PM DIRECTOR OF VIDEO ANALYTICS us Abraham Coello MD LAB BLOOD ORDERABLES Fi nal Result [facility] [address] [place] [address] * (ABNORMAL) Hemoglobin A1c (11/13/2022 2:20 PM DIRECTOR OF VIDEO ANALYTICS) [facility] Hgb A1C 8.6(H) 4.0 - 5.6 % [facility] Estimated Average Glucose 200 mg/dL [facility] Comment: The ADA recommends reporting an estimated Average Glucose (eAG) with all Hemoglobin A1c results using the equation derived from a study of 507 normal and diabetic adults. Minority populations were underrepresented and children were not included. (Diabetes Care 31:6983-9845, 2008). The eAG is not equivalent to a fasting glucose. Blood 11/13/2022 2:20 PM DIRECTOR OF VIDEO ANALYTICS 11/13/2022 2:41 PM DIRECTOR OF VIDEO ANALYTICS Campbell Bullard Dear DO LAB BLOOD ORDERABLES Fin al Result Performing Organization Address [facility] Phone Number [facility] [address] [place] [address] * Hepatitis C (HCV) RNA PCR, quantitative (05/08/2022 10:08 AM CDT) [facility] HCV RNA IU/mL HCV Not Detected IU/mL [...] - 05/10/2022 8:17 AM CDT Performed at: [address] [place] [id number] Patient Financial Services Coordinator: Jamar Cooper MD, Phone: [phone] Campbell Bullard Dear DO LAB MICROBIOLOGY - [...] - 04/18/2022 10:10 AM CDT Performed at: [address] [place], [place] [id number] Patient Financial Services Coordinator: Thad Peacock PhD, Phone: [phone] Campbell Bullard Dear DO LAB URINE ORDERABLES [...] - 04/18/2022 7:10 AM CDT Performed at: [address] [place] [id number] Patient Financial Services Coordinator: Thad Peacock PhD, Phone: [phone] Campbell Bullard Dear DO LAB BLOOD ORDERABLES Fin al Result [facility] - 01 * Occult blood, fecal non neoplasm screening (11/22/2017 11:15 AM DIRECTOR OF VIDEO ANALYTICS) Collection date , feces [id number] [facility] Collection time 1, feces 1,115 [facility] Occult blood, fecal Negative Negative [facility] Stool 11/22/2017 11:1 5 AM DIRECTOR OF VIDEO ANALYTICS 11/22/2017 1:19 PM DIRECTOR OF VIDEO ANALYTICS Narrative [facility] - 11/22/2017 2:38 PM DIRECTOR OF VIDEO ANALYTICS Hakeem Muro DO LAB BODY FLUIDS AND STOOLS ORDERABLES Final Result Performing Organization Address City/[facility]/ZIP Co de Phone Number [facility] [address] [facility] [place] [address] from Last 3 Months or Most Recently Relevant to Health Maintenance Insurance [place] [employer] [facility] DUAL COMPLETE [id number] IDPA [facility] MEDICARE ADVANTAGE Care Teams Physician Compensation Analyst Relationship Specialty Start Date End Date Dear, Campbell Bullard DO PCP - General Family Medicine 04/13/22 No, Physician 12/21/16
--- OUTSIDE RECORDS SUMMARY | 2025-02-14 06:30 | XMS_ITS | Encounter Summary ---
Author Organization [facility] Address [address] [place] [address] Care Team Providers Care Machine Inspector Name Role Phone DearCampbell DO Primary Care Provider + Encounter Details Date Type Department Care Team (Late st Contact Info) Description 12/04/1999 Outpatient Historical [facility] Internal Medicine [place] [address] [place] [phone] Reg Katz MD Social History Tobacco Use Types Packs/Day Years Used Date Smoking Tobacco: Never Assessed Sex and Gender Information Value Date Recorded Sex Assigned at Not on file Legal Sex Male 5:24 AM ENTRY LEVEL RECRUITER Gender Identity Not on file Sexual Orientation Not on file documented as of this encounter Plan of Treatment Not on file documented as of this encounter Visit Diagnoses Not on filedocumented in this encounter Care Teams Machine Inspector Relationship Specialty Start Date End Date DearCampbell DO [address] [place] [address] PCP - General Family Practice 07/09/22 documented as of this encounter
--- OUTSIDE RECORDS SUMMARY | 2025-02-14 06:30 | XMS_ITS | Encounter Summary ---
Author Organization [facility] Address 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
--- OUTSIDE RECORDS SUMMARY | 2025-02-14 06:30 | XMS_ITS | Clinical Summary ---
Author Organization [facility] [employer] Address [address] [place] [address] Care Team Providers Care Technician Chemical Cleaning Name Role Phone Unknown, Provider Primary Care Provider Unavaila ble Source Comments [facility],non-owned Affiliates and Associated Physician Practices is amultiple site organization consisting of ambulatory clinics and hospital sitesin [place], [place], [place] and [place]. This disclosure is being madepursuant to the Care Everywhere program and may not contain all information available regarding this patient. 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 Gender Identity Not on file Sexual [...] this topic Medical Devices Explanted Type Area Medical Claims Manager Device Identifier Shelf Expiration Date Model / Serial / Lot Stent Tria Sft [id number] Implanted:Qty: 1 on 03/13/2022 by Chace Dale MD at [facility] Explanted:Qty: 1 on 04/03/2022 by Chace Dale MD at [facility] Left: [email or web address] 12/06/2024 [id number] / / [id number] Insurance MANAGED MEDICARE [facility] MEDICAID - [place] [facility] MANAGED MEDICARE ADV [place]ID - [place] [facility] MANAGED MEDICARE ADV Member Subscriber Plan / Payer (Ef fective 2024-Present) Name:Mary Grace Lau Relation to Subscriber:Self Name:Yaya Mary Grace Payer ID:[id number] (NAIC) Type:Medicare-Managed Care Address: [place] [id number] [place]ID - [place] Member Subscriber Plan / Payer (Ef fective for All Dates) Name:Mary Grace Lau Member ID:Not on file Relation to Subscriber:Self Name:YayaMary Grace Payer ID:Not on file Group ID:Not on file Type:Medicaid [place] Address: [place] [phone] [facility] MANAGED MEDICARE ADV Member Subscriber Plan / Payer (Ef fective 2024-Present) Name:Mary Grace Lau Relation to Subscriber:Self Name:Mary Grace Lau Payer ID:[id number] ([facility]) Type:Medicare-Managed Care Address: [address] [place]ICAID - [place] [facility] MANAGED MEDICARE ADV Member Subscriber Plan / Payer (Ef fective 2024-Present) Name:Mary Grace Lau Relation to Subscriber:Self Name:Mary Grace Lau Payer ID:[id number] (NAIC) Type:Medicare-Managed Care Address: [address] * Guarantor: MARY GRACE LAU Account [...] Group ID:Not on file Type:Medicaid [place] Address: [address] MANAGED MEDICARE ADV Member Subscriber Plan / Payer (Ef fective 2024-) Name:Mary Grace Lau Relation to Subscriber:Self Name:Mary Grace Lau Payer ID:[id number] (NAIC) Type:Medicare-Managed Care Address: [place] [phone] * Guarantor: MARY GRACE LAU Account Type [...] Group ID:Not on file Type:Medicaid [place] Address: [address] MANAGED MEDICARE ADV * Guarantor: MARY GRACE LAU Account Type Relation to Patient Date of Phone Billing Address Personal/Family [address] [place] [address] MEDICA[place] - [place] UHC MANAGED MEDICARE ADV [...] 7:21 PM 12/01/2019 1:11 AM Care Teams Technician Chemical Cleaning Relationship Specialty Start Date End Date Unknown, Provider PCP - General 02/28/24
--- OUTSIDE RECORDS SUMMARY | 2025-02-14 06:30 | XMS_ITS | Clinical Summary ---
Author Organization [facility] er Address [address] [place] [address] Care Team Providers Care Comsec Manager Name Role Phone No, Physician Unavailable Dear, [...] 08/06/2022 Assessment & Plan (08/06/2022 12:13 PM PREDATOR CONTROL TRAPPER): Chronic, worsening - Refer to vascular surgery [...] 04/17/2022 Assessment & Plan (11/13/2022 2:04 PM PREDATOR CONTROL TRAPPER): Chronic, R anterior tibial (12/12); unprovoked per [...] surgery Assessment & Plan (08/06/2022 12:10 PM PREDATOR CONTROL TRAPPER): Chronic, R anterior tibial (12/12); unprovoked per [...] 04/17/2022 Assessment & Plan (08/06/2022 12:14 PM PREDATOR CONTROL TRAPPER): Chronic Complications: CAD, HTN, Neuropathy A1c: 8.0 [...] 04/17/2022 Assessment & Plan (08/06/2022 12:20 PM PREDATOR CONTROL TRAPPER): Chronic, controlled - lisinopril 2.5mg Assessment & [...] omeprazole 20mg Coronary artery disease invo lving [place] coronary artery of [place] heart without angina pectoris 04/17/2022 Assessment & [...] Comments Blood Pressure 137/63 11/20/2022 4:30 PM PREDATOR CONTROL TRAPPER Pulse 65 11/20/2022 4:55 PM PREDATOR CONTROL TRAPPER Temperature 36 C (96.8 F) 11/20/2022 10:41 AM PREDATOR CONTROL TRAPPER Respiratory Rate 18 11/20/2022 10:41 AM PREDATOR CONTROL TRAPPER Oxygen Saturation 100% 11/20/2022 4:55 PM PREDATOR CONTROL TRAPPER Inhaled Oxygen Concentration - - Weight 104.8 kg (231 lb) 11/20/2022 10:41 AM PREDATOR CONTROL TRAPPER Height 177.8 cm (5' 10 ) 11/13/2022 1:42 PM PREDATOR CONTROL TRAPPER Body Mass Index 33.15 11/13/2022 1:42 PM PREDATOR CONTROL TRAPPER Plan of Treatment Health Maintenance Due Date [...] Diagnosis Comments EGFR STAT 11/20/2022 3:11 PM PREDATOR CONTROL TRAPPER HEMOGLOBIN A1C Routine 11/13/2022 2:20 PM PREDATOR CONTROL TRAPPER 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, without long-term current use of insulin (HCC) HEPATITIS C RNA, QUANTITATIVE, PCR Routine 05/08/2022 10:08 AM CDT Need for hepatitis C screening test LIPID PANEL Routine 04/17/2022 9:43 AM CDT Coronary artery disease involving [place] coronary artery of [place] heart without angina pectoris ALBUMIN CREATININE RATIO, URINE Routine 04/17/2022 9:43 AM CDT 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 73 m2 [facility] Comment: Interpretive Data Reference Interval Normal >/= [...] last reviewed 2021. Blood 11/20/2022 3:11 PM PREDATOR CONTROL TRAPPER 11/20/2022 3:16 PM PREDATOR CONTROL TRAPPER us Abraham Coello MD LAB BLOOD ORDERABLES Fi nal Result [facility] [address] [facility] Department [place] [address] * (ABNORMAL) Hemoglobin A1c (11/13/2022 2:20 PM PREDATOR CONTROL TRAPPER) Hgb A1C 8.6(H) 4.0 - 5.6 % [facility] Estimated Average Glucose 200 mg/dL [facility] Comment: The ADA recommends reporting an estimated Average Glucose (eAG) with all Hemoglobin A1c results using the equation derived from a study of 507 normal and diabetic adults. Minority populations were underrepresented and children were not included. (Diabetes Care 31:5089-0870, 2008). The eAG is not equivalent to a fasting glucose. Blood 11/13/2022 2:20 PM PREDATOR CONTROL TRAPPER 11/13/2022 2:41 PM PREDATOR CONTROL TRAPPER Campbell Bullard Dear DO LAB BLOOD ORDERABLES Fin al Result Performing Organization Address City/[facility]/ZIP Co de Phone Number [facility] [address] [facility] of [place] [address] * Hepatitis C (HCV) RNA PCR, quantitative (05/08/2022 10:08 AM CDT) Pathologist [facility] HCV RNA IU/mL HCV Not Detected [...] 8:17 AM CDT Performed at: 01 - [address] [id number] Artillery Officer: Jamar Cooper MD, Phone: [phone] Campbell Bullard Dear DO LAB MICROBIOLOGY - [...] - 04/18/2022 10:10 AM CDT Performed at: [address] [id number] Artillery Officer: Thad Peacock PhD, Phone: [phone] Campbell Bullard Dear DO LAB URINE ORDERABLES Fin al Result Performing Organization Address [facility] de Phone Number [facility] - 01 * Lipid panel (04/17/2022 9:43 AM CDT) Pathologist [facility] Cholesterol 108 100 - 199 mg/dL [facility] - 01 Triglycerides 81 0 - 149 mg/dL [facility] - 01 HDL Cholesterol 42 >39 mg/dL [facility] - 01 VLDL 16 5 - 40 mg/dL [facility] - 01 LDL, calculated 50 0 - 99 mg/dL [facility] - 01 Blood specimen (specimen) 04/17/2022 9:43 AM CDT 04/17/2022 Narrative [facility] - 04/18/2022 7:10 AM CDT Performed at: [address] [id number] Artillery Officer: Thad Peacock PhD, Phone: [phone] Campbell Bullard Dear DO LAB BLOOD ORDERABLES Fin al Result Performing Organization Address [facility] de Phone Number [facility] - 01 * Occult blood, fecal non neoplasm screening (11/22/2017 11:15 AM PREDATOR CONTROL TRAPPER) [facility] Collection date , [id number] [facility] Collection time 1, feces 1,115 [facility] Occult blood, fecal Negative Negative [facility] Stool 11/22/2017 11:1 5 AM PREDATOR CONTROL TRAPPER 11/22/2017 1:19 PM PREDATOR CONTROL TRAPPER Narrative [facility] - 11/22/2017 2:38 PM PREDATOR CONTROL TRAPPER Hakeem Muro DO LAB BODY FLUIDS AND STOOLS ORDERABLES Final Result [facility] [address] [facility] Department [place] [address] from Last 3 Months or Most Recently Relevant to Health Maintenance Insurance [employer] [facility] DUAL COMPLETE [id number] [facility] MEDICARE Address: [address] [place] [address] [place] [address] [facility] MEDICARE ADVANTAGE [facility] MEDICARE Address: [address] [address] [place] [address] Care Teams Comsec Manager Relationship Specialty Start Date End Date Dear, Campbell Bullard DO PCP - General Family Medicine 04/13/22 No, Physician 12/21/16
--- OUTSIDE RECORDS SUMMARY | 2025-02-14 06:31 | XMS_ITS | Encounter Summary ---
Author Organization [facility] Address 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
--- OUTSIDE RECORDS SUMMARY | 2025-02-14 06:31 | XMS_ITS | Continuity of Care Document ---
Author Name [facility] Organization [facility] Care Team Providers Care Executive Vice President And Chief Financial Officer Name Role Phone [facility] Unavailable Unavailable Problems Combined list of problems from Department of Defense and Veterans Affairs facilities. It does not include entries that were removed or entered in error. Problem Status Onset Date Problem Type Date of Resolution Comments Source Acute Deep Vein Thrombosis of Lower Limb ([facility] [id number]) Active 022 Condition Jan 18, 2022 Entered By: STONE DEL CASTILLO Comment: ER visit [facility] with Dr Max Sevilla [facility] Lumbago Active 996 Condition [facility] Adjustment disorder with mixed emotional features Active Condition [facility] Allergic rhinitis Active Condition [facility] Allergic Rhinitis ([facility] [id number]) Active Condition [facility] Bacterial urinary infection Active Condition [facility] Benign essential hypertension Active Condition [facility] Benign Prostatic Hypertrophy Without Outflow Obstruction ([facility] [id number]) Active Condition [facility] CAD - Coronary artery disease Active Condition [facility] CAD - Coronary Artery Disease ([facility] [id number]) Active Condition Jul 26, 2020 Entered By: TI JOSHUA Comment: s/p IA & PCI/stent [facility] CALCANEAL SPUR Active Condition [facility] Cardiomyopathy Active Condition [facility] Cerebral artery occlusion Active Condition [facility] Cerebral infarction Active Condition [place] [facility] Cervical Spinal Stenosis ([facility] [id number]) Active Condition [facility] Chest pain Active Condition [facility] Chronic venous insufficiency Active Condition [facility] Congestive heart failure Active Condition [facility] Coronary arteriosclerosis Active Condition [facility] Coronary arteriosclerosis Active Condition [facility] DANDRUFF Active Condition [facility] Dementia Active Condition [facility] Depression Active Condition [facility] Depressive disorder Active Condition [facility] Diabetes Mellitus Type 2 ([facility] [id number]) Active Condition [facility] Diabetes Mellitus Type II or unspecified with Neurological Manifestations Active Condition May 30, 2013 Entered By: DAMI MAGANA NN Comment: see list of NON VA meds (glipizide / metformin) [facility] Diabetic Neuropathies (ICD-9-CM 250.60/357.2) Active Condition Jayson DELANEY [facility] DISC DISPLACEMENT NOS Active Condition [facility] DJD Active Condition [facility] Dry Eye Syndrome Active Condition [facility] Dyslipidemia (ICD-9-CM 272.4) Active Condition [facility] Edema Active Condition [facility] Exposure to potentially hazardous substance Active Condition [facility] FACIAL NERVE DIS NEC Active Condition [facility] Finding related to compliance with treatment Active Condition [facility] Gastroenteritis Active Condition [facility] GERD - Gastro-Esophageal Reflux Disease ([facility] [id number]) Active Condition [facility] Gout Active Condition [facility] H/O: Stroke ([facility] [id number]) Active Condition [facility] HEADACHE Active Condition [facility] Health Maintenance Active Condition N 2008 Entered By: DAMI MAGANA NN Comment: on RX from LMD/doesn't know names/will bring list nxt visit [facility] HERED FRUCTOSE INTOLERAN Active Condition [facility] History of cholecystectomy Active Condition Apr 26, 2020 Entered By: STONE DEL CASTILLO Comment: patient reports done in early 2019 [facility] [place] Plaque Active Condition [facility] Homeless single person Active Condition [facility] Hyperlipidemia Active Condition [facility] Hypertensive disorder Active Condition [facility] IDIO PERIPH NEURPTHY NEC Active Condition [facility] Insect Bite NEC (ICD-9-CM 919.4) Active Condition [facility] Kidney Stone ([facility] [id number]) Active Condition [facility] (current) use of Anticoagulants Active Condition Aug 03, 2009 Entered By: DAMI MAGANA NN Comment: PT TAKES COUMADIN FROM IN COMMUNITY [facility] Low Back Pain Active Condition [facility] Low back pain (SNOMED CT [id number]) Active Condition [facility] Marital/family problems (ICD-9-CM V61.0) Active Condition [facility] Memory loss (ICD-9-CM 780.93) Active Condition [facility] Mood Disorder due to a General Medical Condition (ICD-9-CM 293.83) Active Condition [facility] Normal grief reaction Active Condition [facility] Numbness and tingling sensation of skin Active Condition [facility] Obesity Active Condition [facility] Obesity * (ICD-9-CM 278.00) Active Condition [facility] Osteitis deformans (SNOMED CT 4912680) Active Condition [facility] Osteoarthritis (SCT [id number]) Active Condition Jul 26, 2020 Entered By: TI JOSHUA Comment: s/p B [facility]KA[facility] Osteoarthritis * (ICD-9-CM 715.90) Active Condition [facility] Other General Symptoms (ICD-9-CM 780.9) Active Condition Nov 18, 2001 Entered By: KAYCEE ISRAEL Comment: Episodic loss of consciousness [facility] OTHER SEBORRHEIC DERMATITIS Active Condition [facility] Overactive bladder Active Condition [facility] PAGET'S DISEASE Active Condition [facility] PROLONG POSTTRAUM STRESS Active Condition [facility] PVD * (ICD-9-CM 443.9) Active Condition [facility] Relationship distress with spouse or intimate partner Active Condition [facility] Restless legs Active Condition [facility] SKIN ANOMALY NEC Active Condition [facility] Sleep Apnea (SCT [id number]) Active Condition Jul 26, 2020 Entered By: TI JOSHUA Comment: intolerant of CPAP [facility] Spinal Stenosis of Lumbar Region (SCT 17225650) Active Condition [facility] Sprain of unspecified site of knee and leg (ICD-9-CM 844.9) Active Condition [facility] SURGERY FOLLOW-UP Active Condition [facility] Tick bite Active Condition [facility] Type II diabetes mellitus uncontrolled Active Condition [facility] Unresolved Active Condition [facility] URIN TRACT INFECTION NOS Active Condition [facility] Vascular dementia (SNOMED CT [id number]) Active Condition [facility] Vision, abnormal Active Condition [facility] Vitamin D deficiency Active Condition [facility] Xeroderma Active Condition [facility] Acute conjunctivitis (ICD-9-CM 372.00) Inactive Condition 08/03/2009 [facility] Acute sinusitis (ICD-9-CM 461.9) Inactive Condition 08/03/2009 [facility] DM Type II w/o Eye Disease Inactive Condition 08/03/2009 [facility] Gastroenteritis * (ICD-9-CM 558.9) Inactive Condition 08/03/2009 [facility] Hip: arthralgia (pain on rotation, pain in groin) * (ICD-9-CM 719.45) Inactive Condition 08/03/2009 [facility] Influenza * (ICD-9-CM 487.1) Inactive Condition 08/03/2009 [facility] Diagnosis: ICD-10-CM Z51.81 Encounter for therapeutic drug level monitoring Active Diagnosis [facility] Diagnosis: ICD-10-CM I82.409 Acute embolism and thombos unsp deep vn unsp lower extremity Active Diagnosis [facility] Diagnosis: ICD-10-CM Z13.5 Encounter for screening for eye and ear disorders Active Diagnosis [facility] Diagnosis: ICD-10-CM E11.9 Type 2 diabetes mellitus without complications Active Diagnosis [facility] Diagnosis: ICD-10-CM Z79.899 Other mcfp (current) drug therapy Active Diagnosis [facility] Diagnosis: ICD-10-CM I25.10 Athscl heart disease of [place] coronary artery w/o ang pctrs Active Diagnosis [facility] Diagnosis: ICD-10-CM M25.562 Pain in left knee Active Diagnosis [facility] Diagnosis: ICD-10-CM M79.605 Pain in left leg Active Diagnosis [facility] Diagnosis: ICD-10-CM F33.40 Major depressive disorder, recurrent, in remission, unsp Active Diagnosis [facility] Diagnosis: ICD-10-CM Z79.01 terminal gauger (current) use of anticoagulants Active Diagnosis [facility] Medications Combined list of outpatient medications from Department of Defense and Veterans Affairs facilities.Medications provided include 1) outpatient medications from the last 15 months, and 2) patient-reported medications. Medication Details Route Status Patient Instructions Prescription Expires Prescription Number Last Dispense Date Ordering Provider Order Date Order Qty Source APIXABAN 5MG TAB TAKE ONE-HALF TABLET BY MOUTH TWICE A DAY FOR ANTICOAG ULATION ORAL SUSPEND ED 12/31/2025 [id number] 5 AMILCAR SHERWOOD S [address] [facility] APIXABAN 5MG TAB TAKE ONE-HALF TABLET BY MOUTH TWICE A DAY FOR ANTICOAG ULATION ORAL DISCONT INUED 01/22/2025 [id number] 5 BARBARA HUNT 2024 60 [facility] APIXABAN 5MG TAB TAKE ONE-HALF TABLET BY MOUTH TWICE A DAY FOR ANTICOAG ULATION ORAL DISCONT INUED (EDIT) 12/23/2024 [id number] 4 BARBARA HUNT 2023 90 [facility] ATORVASTATI N CA 80MG TAB TAKE ONE-HALF TABLET BY MOUTH EVERY EVENING TO LOWER CHOLESTE ROL ORAL ACTIVE 12/16/2025 [id number] 5 LUIS MANUEL,NI DHI [address] [facility] DULAGLUTIDE 1.5MG/0.5ML INJ,SOLN,PE N INJECT 1.5MG/0. 5ML UNDER THE SKIN EVERY WEEK SUBCUT ANEOUS ACTIVE MARY ELLEN DEL CASTILLO 2021 [facility] [place] [facility] DULAGLUTIDE 1.5MG/0.5ML INJ,SOLN,PE N INJECT 1.5MG (0.5ML) SUBCUTAN EOUSLY EVERY WEEK SUBCUT ANEOUS ACTIVE TARA JOSHUA VIDHI 2019 [facility] EMPAGLIFLOZ IN 5MG/METFORM IN 1000MG TAB,ORAL TAKE ONE TABLET BY MOUTH TWICE A DAY ORAL ACTIVE MARY ELLEN DEL CASTILLO 2021 [facility] EMPAGLIFLOZ IN 5MG/METFORM IN 1000MG TAB,ORAL TAKE ONE TABLET BY MOUTH TWO TIMES A DAY ORAL ACTIVE TARA JOSHUA VIDHI 2019 [facility] GABAPENTIN 300MG CAP TAKE ONE CAPSULE BY MOUTH TWICE A DAY FOR PAIN ORAL ACTIVE 12/16/2025 [id number] 5 LUIS MANUEL,NI I 2024 [address] [facility] GABAPENTIN 300MG CAP TAKE ONE CAPSULE BY MOUTH TWICE A DAY FOR PAIN ORAL 12/06/2024 [id number] 4 José Miguel TOURE 2023 180 [place] [facility] LISINOPRIL 5MG TAB TAKE ONE-HALF TABLET BY MOUTH ONCE A DAY FOR HEART OR BLOOD PRESSURE ORAL ACTIVE 12/16/2025 [id number] 5 LUIS MANUEL,NI DHI 2024 [address] [facility] OMEPRAZOLE 20MG CAP,EC TAKE ONE CAPSULE BY MOUTH TWICE A DAY TO LOWER STOMACH ACID. TAKE 30 MINUTES PRIOR TO FOOD. ORAL ACTIVE 12/16/2025 [id number] 5 LUIS MANUEL,NI DHI 2024 [address] [facility] OMEPRAZOLE 20MG CAP,EC TAKE ONE CAPSULE BY MOUTH TWICE A DAY TO LOWER STOMACH ACID. TAKE 30 MINUTES PRIOR TO FOOD. ORAL DISCONT INUED 05/12/2025 [id number] 5 José Miguel TOURE 2023 [address] [facility] [facility] OMEPRAZOLE 20MG CAP,EC TAKE ONE CAPSULE BY MOUTH TWICE A DAY TO LOWER STOMACH ACID. TAKE 30 MINUTES PRIOR TO FOOD. ORAL DISCONT INUED 05/07/2024 [id number] MARY ELLEN DEL CASTILLO 2022 [address] [facility] SERTRALINE HCL 50MG TAB TAKE ONE-HALF TABLET BY MOUTH EVERY MORNING ORAL ACTIVE 12/16/2025 [id number] 5 CHRISTOPHER ISSA DHI [address] [facility] SERTRALINE HCL 50MG TAB TAKE ONE-HALF TABLET BY MOUTH EVERY MORNING FOR DEPRESSI ON ORAL DISCONT INUED 06/24/2025 [id number] 5 LALIROGER JIMI 2023 [address] SERTRALINE HCL 50MG TAB TAKE ONE-HALF TABLET BY MOUTH EVERY MORNING FOR DEPRESSI ON ORAL DISCONT INUED 12/17/2024 [id number] 4 ROGER ESCALERAA 2023 [address] [facility] TAMSULOSIN HCL 0.4MG CAP TAKE ONE CAPSULE BY MOUTH EVERY EVENING APPROXIM ATELY 30 MINUTES AFTER THE SAME MEAL EACH DAY (FOR PROSTATE ) ORAL ACTIVE 12/16/2025 [id number] 5 CHRISTOPHER ISSA I [address] [facility] Allergies, Adverse Reactions, Alerts Combined list of allergies from Department of Defense and Veterans Affairs facilities. It does not include entries that were removed or entered in error. Substance Category Reaction Severity Reaction type Status Date Reported Comments Source AMITRIPTYLIN E Propensity to adverse reactions to drug (finding) Physical aggression active 2 [facility] ASPIRIN Propensity to adverse reactions to drug (finding) active 5 [facility] METFORMIN Propensity to adverse reactions to drug (finding) Diarrhea active 3 [facility] MORPHINE Propensity to adverse reactions to drug (finding) Physical aggression active 2 [facility] OXCARBAZEPIN E Propensity to adverse reactions to drug (finding) Psychotic disorder active 2 [facility] PENICILLIN Propensity to adverse reactions to drug (finding) active 5 [facility] PENICILLIN Propensity to adverse reactions to drug (finding) HIVES active 3 [facility] PENICILLIN Propensity to adverse reactions to drug (finding) Urticaria active 0 [facility] MIKAEL BAILEY 15 TRAZODONE Propensity to adverse reactions to drug (finding) Bleeding active 2 [facility] Immunizations Combined list of available immunizations from the Department of Defense and Veterans Affairs facilities. Immunization Series Date Given Administered By Site Reaction Lot Number CVX Code Drug Rotary Shear Operator Status Comments Source INFLUENZA, UNSPECIFIED FORMULATION 2020 88 complet ed [facility], VISN 15 INFLUENZA, SEASONAL, INJECTABLE, PRESERVATIVE FREE 2016 140 complet ed [facility] PNEUMOCOCCAL CONJUGATE PCV 13 2016 133 complet ed [facility] INFLUENZA, UNSPECIFIED FORMULATION 2014 88 complet ed NOVARTIS/ [id number] [facility] PNEUMOCOCCAL CONJUGATE PCV 13 2014 133 complet ed [facility] INFLUENZA, UNSPECIFIED FORMULATION 2013 88 complet ed as per [place] [facility] PNEUMOCOCCAL POLYSACCHARID E PPV23 2013 33 complet ed Merck/Lot # [id number], January 30, 2015 [facility] INFLUENZA, UNSPECIFIED FORMULATION 2013 88 complet ed CSL BIOTHERAP IES/[id number] [facility] INFLUENZA, UNSPECIFIED FORMULATION 2012 88 complet ed Glaxo-Kli ne/[id number] 4 [facility] INFLUENZA (HISTORICAL) 2011 88 complet ed Novartis/ Lot# [id number] [facility] TDAP 2011 115 complet ed Sanofi Pasteur/L ot# [id number] [facility] INFLUENZA (HISTORICAL) 2011 88 complet ed [facility] NOVEL INFLUENZA-H1N 1-09, ALL FORMULATIONS 2009 128 complet ed Novartis/ Lot# [id number] [facility] INFLUENZA (HISTORICAL) 2008 NONE 88 complet ed Completed Series, Left Deltoid [facility] [facility] PNEUMOCOCCAL POLYSACCHARID E PPV23 2008 33 complet ed Right Deltoid [facility] INFLUENZA (HISTORICAL) 2007 88 complet ed [facility] INFLUEN[facility] (HISTORICAL) 2006 88 complet ed Left Deltoid [facility] INFLUENZA (HISTORICAL) 2005 88 complet ed Left Deltoid [facility] INFLUENZA (HISTORICAL) 2004 88 complet ed Left Deltoid [facility] INFLUENZA (HISTORICAL) 2003 88 complet ed Left Deltoid [facility] PNEUMOCOCCAL POLYSACCHARID E PPV23 2003 33 complet ed Left Deltoid [facility] INFLUENZA (HISTORICAL) 2002 88 complet ed Left Deltoid [facility] INFLUENZA, UNSPECIFIED FORMULATION 2000 88 complet ed [facility] TD(ADULT) UNSPECIFIED FORMULATION 2000 139 complet ed [facility] TETANUS TOXOID, UNSPECIFIED FORMULATION 1997 KAYCEE LINDSEY X 112 complet ed [facility] Results Combined list of recent [...] Dec 11, 2024 04:22 PM Reporting Lab: [facility] [address] [facility] [phone] Performing Lab: [facility] [address] [place] [phone] [facility] LIPID PANEL (STL) CHOLESTEROL [MASS/VOLUM E] IN SERUM OR PLASMA 90 mg/dL 0 - 200 12/16 Specimen Type: PLASMA Comment: No hemolysis noted. Ordering Provider: LIZA ISSA AL Report Released Date/Time: Dec 11, 2024 04:22 PM Reporting Lab: [facility] [address] [facility] [phone] Performing Lab: [facility] [address] [place] [phone] [facility] LIPID PANEL (STL) TRIGLYCERID E [MASS/VOLUM E] IN SERUM OR PLASMA 63 mg/dL 0 - 150 12/16 Specimen Type: PLASMA Comment: No hemolysis noted. Ordering Provider: LIZA ISSA Report Released Date/Time: Dec 11, 2024 04:22 PM Reporting Lab: [facility] [address] [facility] [phone] Performing Lab: [facility] [address] [facility] [phone] [facility] LIPID PANEL (STL) CHOLESTEROL IN LDL [MASS/VOLUM E] IN SERUM OR PLASMA BY CALCULATION 32 mg/dL 12/16 Specimen Type: PLASMA Comment: No hemolysis noted. Ordering Provider: LIZA ISSA Report Released Date/Time: Dec 11, 2024 04:22 PM Reporting Lab: [facility] [address] [facility] [phone] Performing Lab: [facility] [address] [place] [phone] [place] [address] LIPID PANEL (STL) CHOLESTEROL IN HDL [MASS/VOLUM E] IN SERUM OR PLASMA 45 mg/dL 40 12/16 Specimen Type: PLASMA Comment: No hemolysis noted. Ordering Provider: LIZA ISSA Report Released Date/Time: Dec 11, 2024 04:22 PM Reporting Lab: [facility] [address] [facility] [phone] Performing Lab: [facility] [address] [facility] [phone] [facility] MICRAL/CR EAT PROFILE (STL) ALBUMIN [MASS/VOLUM E] IN URINE 226.8 mg/L 12/16 Specimen Type: URINE No comment entered. Ordering Provider: LIZA ISSA Report Released Date/Time: Dec 11, 2024 04:22 PM Reporting Lab: [facility] [address] [facility] [phone] Performing Lab: [facility] [address] [facility] [phone] [facility] MICRAL/CR EAT PROFILE (STL) ALBUMIN/CRE ATININE [MASS RATIO] IN URINE 422 mg/g 0 - 29 12/16 H Specimen Type: URINE No comment entered. Ordering Provider: LIZA ISSA Report Released Date/Time: Dec 11, 2024 04:22 PM Reporting Lab: [facility] [address] [facility] [phone] Performing Lab: [facility] [address] [facility] [phone] [facility] MICRAL/CR EAT PROFILE (STL) CREATININE [MASS/VOLUM E] IN URINE 53.7 mg/dL 63 - 166 12/16 L Specimen Type: URINE No comment entered. Ordering Provider: LIZA ISSA Report Released Date/Time: Dec 11, 2024 04:22 PM Reporting Lab: [facility] [address] [place] [phone] Performing Lab: [facility] [address] [place] [phone] [facility] COMPREHEN SIVE METABOLIC PANEL CREATININE [MASS/VOLUM E] IN SERUM OR PLASMA 0.90 mg/dL 0.7 - 1.3 12/16 Specimen Type: PLASMA Comment: No hemolysis noted. Ordering Provider: LIZA ISSA Report Released Date/Time: Dec 11, 2024 04:22 PM Reporting Lab: [facility] [address] [place] [phone] Performing Lab: [facility] [address] [place] [phone] [facility] COMPREHEN SIVE METABOLIC PANEL UREA NITROGEN [MASS/VOLUM E] IN SERUM OR PLASMA 19.8 mg/dL 9.0 - 25.0 12/16 Specimen Type: PLASMA Comment: No hemolysis noted. Ordering Provider: LIZA ISSA Report Released Date/Time: Dec 11, 2024 04:22 PM Reporting Lab: [facility] [address] [facility] [phone] Performing Lab: [facility] [address] [place] [phone] [facility] COMPREHEN SIVE METABOLIC PANEL GLUCOSE [MASS/VOLUM E] IN SERUM OR PLASMA 167 mg/dL 72 - 99 12/16 H Specimen Type: PLASMA Comment: No hemolysis noted. Ordering Provider: LIZA ISSA Report Released Date/Time: Dec 11, 2024 04:22 PM Reporting Lab: [facility] [address] [phone] Performing Lab: [facility] [address] [facility] [phone] [facility] COMPREHEN SIVE METABOLIC PANEL SODIUM [MOLES/VOLU ME] IN SERUM OR PLASMA 139 meq/L 136 - 145 12/16 Specimen Type: PLASMA Comment: No hemolysis noted. Ordering Provider: LIZA ISSA Report Released Date/Time: Dec 11, 2024 04:22 PM Reporting Lab: [facility] [address] [facility] [phone] Performing Lab: [facility] [address] [facility] [phone] [facility] COMPREHEN SIVE METABOLIC PANEL POTASSIUM [MOLES/VOLU ME] IN SERUM OR PLASMA 4.0 meq/L 3.5 - 5 12/16 Specimen Type: PLASMA Comment: No hemolysis noted. Ordering Provider: LIZA ISSA Report Released Date/Time: Dec 11, 2024 04:22 PM Reporting Lab: [facility] [address] [facility] [phone] Performing Lab: [facility] [address] [facility] [phone] [facility] COMPREHEN SIVE METABOLIC PANEL CHLORIDE [MOLES/VOLU ME] IN SERUM OR PLASMA 102 meq/L 98 - 107 12/16 Specimen Type: PLASMA Comment: No hemolysis noted. Ordering Provider: LIZA ISSA Report Released Date/Time: Dec 11, 2024 04:22 PM Reporting Lab: [facility] [address] [facility] [phone] Performing Lab: [facility] [address] [facility] [phone] [facility] COMPREHEN SIVE METABOLIC PANEL CARBON DIOXIDE, TOTAL [MOLES/VOLU ME] IN SERUM OR PLASMA 26 meq/L 22 - 31 12/16 Specimen Type: PLASMA Comment: No hemolysis noted. Ordering Provider: LIZA ISSA Report Released Date/Time: Dec 11, 2024 04:22 PM Reporting Lab: [facility] [address] [facility] [address] Performing Lab: [facility] [facility] [address] [facility] [address] [facility] COMPREHEN SIVE METABOLIC PANEL CALCIUM [MASS/VOLUM E] IN SERUM OR PLASMA 10.0 mg/dL 8.4 - 10.4 12/16 Specimen Type: PLASMA Comment: No hemolysis noted. Ordering Provider: LIZA ISSA Report Released Date/Time: Dec 11, 2024 04:22 PM Reporting Lab: [facility] [address] [facility] [address] Performing Lab: [facility] [address] [facility] [address] [facility] COMPREHEN SIVE METABOLIC PANEL PROTEIN [MASS/VOLUM E] IN SERUM OR PLASMA 7.9 g/dL 6 - 8.6 12/16 Specimen Type: PLASMA Comment: No hemolysis noted. Ordering Provider: LIZA ISSA Report Released Date/Time: Dec 11, 2024 04:22 PM Reporting Lab: [facility] [address] [facility] [address] Performing Lab: [facility] [address] [facility] [address] [facility] COMPREHEN SIVE METABOLIC PANEL ALBUMIN [MASS/VOLUM E] IN SERUM OR PLASMA 4.2 g/dL 3.4 - 5 12/16 Specimen Type: PLASMA Comment: No hemolysis noted. Ordering Provider: LIZA ISSA Report Released Date/Time: Dec 11, 2024 04:22 PM Reporting Lab: [facility] [address] [facility] [address] Performing Lab: [facility] [address] [place] [phone] [facility] COMPREHEN SIVE METABOLIC PANEL BILIRUBIN.T OTAL [MASS/VOLUM E] IN SERUM OR PLASMA 0.5 mg/dL 0.2 - 1.2 12/16 Specimen Type: PLASMA Comment: No hemolysis noted. Ordering Provider: LIZA ISSA Report Released Date/Time: Dec 11, 2024 04:22 PM Reporting Lab: [facility] [address] [facility] [address] Performing Lab: [facility] [address] [facility] [address] [facility] COMPREHEN SIVE METABOLIC PANEL ALKALINE PHOSPHATASE [ENZYMATIC ACTIVITY/VO LUME] IN SERUM OR PLASMA 133 U/L 40 - 150 12/16 Specimen Type: PLASMA Comment: No hemolysis noted. Ordering Provider: LIZA ISSA Report Released Date/Time: Dec 11, 2024 04:22 PM Reporting Lab: [facility] [address] [facility] [address] Performing Lab: [facility] [address] [facility] [address] [facility] COMPREHEN SIVE METABOLIC PANEL ASPARTATE AMINOTRANSF ERASE [ENZYMATIC ACTIVITY/VO LUME] IN SERUM OR PLASMA 27 U/L 5 - 34 12/16 Specimen Type: PLASMA Comment: No hemolysis noted. Ordering Provider: LIZA ISSA Report Released Date/Time: Dec 11, 2024 04:22 PM Reporting Lab: [facility] [address] [facility] [address] Performing Lab: [facility] [address] [facility] [address] [facility] COMPREHEN SIVE METABOLIC PANEL ALANINE AMINOTRANSF ERASE [ENZYMATIC ACTIVITY/VO LUME] IN SERUM OR PLASMA 16 U/L 8 - 40 12/16 Specimen Type: PLASMA Comment: No hemolysis noted. Ordering Provider: LIZA ISSA Report Released Date/Time: Dec 11, 2024 04:22 PM Reporting Lab: [facility] [address] [facility] [address] Performing Lab: [facility] [address] [facility] [address] [facility] COMPREHEN SIVE METABOLIC PANEL GLOMERULAR FILTRATION RATE/1.73 SQ M.PREDICTED [VOLUME RATE/AREA] IN SERUM, PLASMA OR BLOOD BY CREATININE- BASED FORMULA (CKD-EPI 2020) 86.9 60 12/16 Specimen Type: PLASMA Comment: No hemolysis noted. Ordering Provider: LIZA ISSA Report Released Date/Time: Dec 11, 2024 04:22 PM Reporting Lab: [address] [address] Performing Lab: [address] [address] [facility] HGA1C HEMOGLOBIN A1C/HEMOGLO BIN.TOTAL IN BLOOD 7.1 4.0 - 6.0 08/11 H Specimen Type: BLOOD No comment entered. Ordering Provider: JEANINE CARDENAS Report Released Date/Time: Aug 11, 2024 02:09 PM Reporting Lab: [address] [address] Performing Lab: [address] [address] [facility] TSH (MA-PB) THYROTROPIN [UNITS/VOLU ME] IN SERUM OR PLASMA 3.281 u[IU]/ mL 0.47 - 5 08/11 Specimen Type: SERUM No comment entered. Ordering Provider: JEANINE CARDENAS Report Released Date/Time: Aug 11, 2024 02:09 PM Reporting Lab: [address] [address] Performing Lab: [address] [address] [facility] LIPID PANEL (STL) CHOLESTEROL [MASS/VOLUM E] IN SERUM OR PLASMA 98 mg/dL 0 - 200 08/11 Specimen Type: PLASMA Comment: No hemolysis noted. Ordering Provider: JEANINE CARDEANS Report Released Date/Time: Aug 11, 2024 02:09 PM Reporting Lab: [address] [address] Performing Lab: [address] [address] [facility] LIPID PANEL (STL) TRIGLYCERID E [MASS/VOLUM E] IN SERUM OR PLASMA 51 mg/dL 0 - 150 08/11 Specimen Type: PLASMA Comment: No hemolysis noted. Ordering Provider: JEANINE CARDENAS Report Released Date/Time: Aug 11, 2024 02:09 PM Reporting Lab: [facility] [address] [place] [phone] Performing Lab: [address] [address] [facility] LIPID PANEL (STL) CHOLESTEROL IN LDL [MASS/VOLUM E] IN SERUM OR PLASMA BY CALCULATION 43 mg/dL 08/11 Specimen Type: PLASMA Comment: No hemolysis noted. Ordering Provider: JEANINE CARDENAS Report Released Date/Time: Aug 11, 2024 02:09 PM Reporting Lab: [address] [address] Performing Lab: [address] [address] [facility] LIPID PANEL (STL) CHOLESTEROL IN HDL [MASS/VOLUM E] IN SERUM OR PLASMA 45 mg/dL 40 08/11 Specimen Type: PLASMA Comment: No hemolysis noted. Ordering Provider: JEANINE CARDENAS Report Released Date/Time: Aug 11, 2024 02:09 PM Reporting Lab: [address] [address] Performing Lab: [address] [address] [facility] VITAMIN D, 25-HYDROX Y 25-HYDROXYV ITAMIN D3 [MASS/VOLUM E] IN SERUM OR PLASMA 31.4 ng/mL 30 - 96 08/11 Specimen Type: SERUM No comment entered. Ordering Provider: JEANINE CARDENAS Report Released Date/Time: Aug 11, 2024 02:09 PM Reporting Lab: [facility] [address] [place] [phone] Performing Lab: [address] [address] [facility] B12 COBALAMIN (VITAMIN B12) [MASS/VOLUM E] IN SERUM OR PLASMA 400 pg/mL 213 - 816 08/11 Specimen Type: SERUM No comment entered. Ordering Provider: JEANINE CARDENAS Report Released Date/Time: Aug 11, 2024 02:09 PM Reporting Lab: [facility] [address] [facility] [address] Performing Lab: [facility] [address] [place] [phone] [facility] COMPREHEN SIVE METABOLIC PANEL CREATININE [MASS/VOLUM E] IN SERUM OR PLASMA 1.18 mg/dL 0.7 - 1.3 08/11 Specimen Type: PLASMA Comment: No hemolysis noted. Ordering Provider: JEANINE CARDENAS Report Released Date/Time: Aug 11, 2024 02:09 PM Reporting Lab: [address] [address] Performing Lab: [address] [address] [facility] COMPREHEN SIVE METABOLIC PANEL UREA NITROGEN [MASS/VOLUM E] IN SERUM OR PLASMA 23.5 mg/dL 9.0 - 25.0 08/11 Specimen Type: PLASMA Comment: No hemolysis noted. Ordering Provider: JEANINE CARDENAS Report Released Date/Time: Aug 11, 2024 02:09 PM Reporting Lab: [address] [address] Performing Lab: [address] [address] [facility] COMPREHEN SIVE METABOLIC PANEL GLUCOSE [MASS/VOLUM E] IN SERUM OR PLASMA 94 mg/dL 72 - 99 08/11 Specimen Type: PLASMA Comment: No hemolysis noted. Ordering Provider: JEANINE CARDENAS Report Released Date/Time: Aug 11, 2024 02:09 PM Reporting Lab: [facility] [address] [place] [phone] Performing Lab: [address] [address] [facility] COMPREHEN SIVE METABOLIC PANEL SODIUM [MOLES/VOLU ME] IN SERUM OR PLASMA 139 meq/L 136 - 145 08/11 Specimen Type: PLASMA Comment: No hemolysis noted. Ordering Provider: JEANINE CARDENAS Report Released Date/Time: Aug 11, 2024 02:09 PM Reporting Lab: [facility] [address] [facility] [address] Performing Lab: [facility] [address] [facility] [address] [facility] COMPREHEN SIVE METABOLIC PANEL POTASSIUM [MOLES/VOLU ME] IN SERUM OR PLASMA 4.2 meq/L 3.5 - 5 08/11 Specimen Type: PLASMA Comment: No hemolysis noted. Ordering Provider: JEANINE CARDENAS Report Released Date/Time: Aug 11, 2024 02:09 PM Reporting Lab: [facility] [address] [place] [phone] Performing Lab: [facility] [address] [place] [phone] [facility] COMPREHEN SIVE METABOLIC PANEL CHLORIDE [MOLES/VOLU ME] IN SERUM OR PLASMA 105 meq/L 98 - 107 08/11 Specimen Type: PLASMA Comment: No hemolysis noted. Ordering Provider: JEANINE CARDENAS Report Released Date/Time: Aug 11, 2024 02:09 PM Reporting Lab: [facility] [address] [place] [phone] Performing Lab: [facility] [address] [place] [phone] [facility] COMPREHEN SIVE METABOLIC PANEL CARBON DIOXIDE, TOTAL [MOLES/VOLU ME] IN SERUM OR PLASMA 24 meq/L 22 - 31 08/11 Specimen Type: PLASMA Comment: No hemolysis noted. Ordering Provider: JEANINE CARDENAS Report Released Date/Time: Aug 11, 2024 02:09 PM Reporting Lab: [facility] [address] [facility] [address] Performing Lab: [facility] [address] [place] [phone] [facility] COMPREHEN SIVE METABOLIC PANEL CALCIUM [MASS/VOLUM E] IN SERUM OR PLASMA 9.7 mg/dL 8.4 - 10.4 08/11 Specimen Type: PLASMA Comment: No hemolysis noted. Ordering Provider: JEANINE CARDENAS Report Released Date/Time: Aug 11, 2024 02:09 PM Reporting Lab: [facility] [address] [facility] [address] Performing Lab: [facility] [address] [place] [address] [facility] COMPREHEN SIVE METABOLIC PANEL PROTEIN [MASS/VOLUM E] IN SERUM OR PLASMA 7.7 g/dL 6 - 8.6 08/11 Specimen Type: PLASMA Comment: No hemolysis noted. Ordering Provider: JEANINE CARDENAS Report Released Date/Time: Aug 11, 2024 02:09 PM Reporting Lab: [address] [address] Performing Lab: [address] [address] [facility] COMPREHEN SIVE METABOLIC PANEL ALBUMIN [MASS/VOLUM E] IN SERUM OR PLASMA 3.9 g/dL 3.4 - 5 08/11 Specimen Type: PLASMA Comment: No hemolysis noted. Ordering Provider: JEANINE CARDENAS Report Released Date/Time: Aug 11, 2024 02:09 PM Reporting Lab: [facility] [address] [facility] [address] Performing Lab: [facility] [address] [place] [phone] [facility] COMPREHEN SIVE METABOLIC PANEL BILIRUBIN.T OTAL [MASS/VOLUM E] IN SERUM OR PLASMA 0.5 mg/dL 0.2 - 1.2 08/11 Specimen Type: PLASMA Comment: No hemolysis noted. Ordering Provider: JEANINE CARDENAS Report Released Date/Time: Aug 11, 2024 02:09 PM Reporting Lab: [facility] [address] [place] [phone] Performing Lab: [facility] [address] [place] [phone] [facility] COMPREHEN SIVE METABOLIC PANEL ALKALINE PHOSPHATASE [ENZYMATIC ACTIVITY/VO LUME] IN SERUM OR PLASMA 132 U/L 40 - 150 08/11 Specimen Type: PLASMA Comment: No hemolysis noted. Ordering Provider: JEANINE CARDENAS Report Released Date/Time: Aug 11, 2024 02:09 PM Reporting Lab: [address] [address] Performing Lab: [address] [address] [facility] COMPREHEN SIVE METABOLIC PANEL ASPARTATE AMINOTRANSF ERASE [ENZYMATIC ACTIVITY/VO LUME] IN SERUM OR PLASMA 20 U/L 5 - 34 08/11 Specimen Type: PLASMA Comment: No hemolysis noted. Ordering Provider: JEANINE CARDENAS Report Released Date/Time: Aug 11, 2024 02:09 PM Reporting Lab: [address] [address] Performing Lab: [address] [address] [facility] COMPREHEN SIVE METABOLIC PANEL ALANINE AMINOTRANSF ERASE [ENZYMATIC ACTIVITY/VO LUME] IN SERUM OR PLASMA 17 U/L 8 - 40 08/11 Specimen Type: PLASMA Comment: No hemolysis noted. Ordering Provider: JEANINE CARDENAS Report Released Date/Time: Aug 11, 2024 02:09 PM Reporting Lab: [address] [address] Performing Lab: [address] [address] [facility] COMPREHEN SIVE METABOLIC PANEL GLOMERULAR FILTRATION RATE/1.73 SQ M.PREDICTED [VOLUME RATE/AREA] IN SERUM, PLASMA OR BLOOD BY CREATININE- BASED FORMULA (CKD-EPI 2020) 63.2 60 08/11 Specimen Type: PLASMA Comment: No hemolysis noted. Ordering Provider: JEANINE CARDENAS Report Released Date/Time: Aug 11, 2024 02:09 PM Reporting Lab: [address] [address] Performing Lab: [facility] [address] [facility] [address] [facility] Vital Signs Combined list of inpatient and outpatient Vital Signs from Department of Defense and Veterans Affairs, ranging from 12 months to all on record, depending upon the facility. Vital Sign Value Date Comments Source SYSTOLIC BLOOD PRESSURE 139 12/16/19 12:52:02 [facility] DIASTOLIC BLOOD PRESSURE 74 025 12:52:02 [facility] PULSE OXIMETRY 96 12/15/2024 12:52:02 [facility] WEIGHT 215.8 12/15/2024 12:52:02 [facility] BMI 29 kg/m2 12/15/2024 12:52:02 [facility] PAIN 0 12/15/2024 12:52:02 [facility] HEIGHT 72 12/15/2024 12:52:02 [facility] TEMPERATURE 98 12/15/2024 12:52:02 [facility] PULSE 63 12/15/2024 12:52:02 [facility] RESPIRATION 16 12/15/2024 12:52:02 [facility] SYSTOLIC BLOOD PRESSURE 135 08/11/20 13:38:00 [facility] DIASTOLIC BLOOD PRESSURE 70 024 13:38:00 [facility] PULSE OXIMETRY 97 08/11/2024 13:38:00 [facility] WEIGHT 198 08/11/2024 13:38:00 [facility] BMI 26 kg/m2 08/11/2024 13:38:00 [facility] PAIN 0 08/11/2024 13:38:00 [facility] HEIGHT 73 08/11/2024 13:38:00 [facility] TEMPERATURE 98 08/11/2024 13:38:00 [facility] PULSE 65 08/11/2024 13:38:00 [facility] RESPIRATION 16 08/11/2024 13:38:00 [facility] Encounters Combined list of: 1) Encounters from Department of Veterans Affairs facilities going backup to the last 18 months, not all VA inpatient encounters are included; 2) Encounters from the Department of Defense facilities going backup to 280 months. Location Location Details Encounter Type Encounter Number Reason For Visit Attending Provider ADM Date DC Date Status Disposition Source [facility] Outpatient Encounter [id number] 08[facility]22 [facility] [place] Outpatient Encounter [id number] 09/18 [place] [facility] [place] QNHP OL DIG ASSMT&MGMT 5-10 [id number] Diagnos is: ICD-10- CM Z79.01 terminal gauger (curren t) use of anticoa maribell MARILEEBARBARA 09/20 [place] [facility] Outpatient Encounter [id number] 09/26 [facility] Encounter [id number] 09/30 [place] [facility] Outpatient Encounter [id number] 10/04 [facility] Outpatient Encounter [id number] 10/20 [facility] Outpatient Encounter [id number] 11/07 [facility] [place] [facility] Outpatient Encounter [id number] 11/12 [place] [facility] [place] [facility] Outpatient Encounter [id number] ALBINO OSBORN 11/13 [place] [facility] [place] [facility] Outpatient Encounter [id number] [place] [facility] Outpatient Encounter [id number] 12/01 [facility] [place] [facility] Outpatient Encounter [id number] CONRADJILL METZ Iglesia 12/01 [place] [facility] Outpatient Encounter [id number] 12/08 [facility] [place] [facility] Outpatient Encounter [id number] 12/08 [place] [facility] Outpatient Encounter [id number] Gabe BOLDEN 12/[address] [facility]AC[facility] FEE [id number] Diagnos is: ICD-10- CM F33.40 Major depress rigoberto disorde r, recurre nt, in remissi on, unsp ,12/16 [facility] OFFICE O/P EST LOW 20 MIN [id number] Diagnos is: ICD-10- CM F33.40 Major depress rigoberto disorde r, recurre nt, in remissi on, unsp ESCALERA,12/16 [facility] EMERGENCY [facility]PT VISIT MOD MDM [id number] Diagnos is: ICD-10- CM M79.605 Pain in left leg PRECIOUS DIAL S 12/19 [facility] Outpatient Encounter [id number] PRECIOUS DIAL S 12/19 [facility] GAIT TRAINING THERAPY [id number] Diagnos is: ICD-10- CM M25.562 Pain in left knee RAMY JUDGE 12/19 [facility] [place] [facility] MTMS BY PHARM EST 15 MIN [id number] Diagnos is: ICD-10- CM Z51.81 Encount er for therape utic drug level monitor BARBARA Hand 12/22 [place] [facility] Outpatient Encounter [id number] 12/22 [facility] Outpatient Encounter [id number] 12/[address] [facility] OFFICE O/P EST LOW 20 MIN [id number] Diagnos is: ICD-10- CM I25.10 Athscl heart disease of [place] coronar y artery w/o ang pctrs DAVID TOURE 12/31 [facility] Out[facility] Encounter [id number] PATTIE MORENO 01/06 [facility] En[facility] [id number] 01/[address] [facility] Outpatient Encounter [id number] 01/26 [facility] En[facility] [id number] 01/26 [facility] Outpatient Encounter [id number] 01/27 [facility] Outpatient Encounter [id number] KAIA SUAREZ 02/03 [place] [facility] [place] [facility] Outpatient Encounter [id number] 02/24 [facility] Outpatient Encounter [id number] 02/25 [facility] Outpatient Encounter [id number] 02/26 [facility] Outpatient Encounter [id number] 02/26 [facility] Outpatient Encounter [id number] PARADAGLEN 03/05 [facility] Outpatient Encounter [id number] 05/11 [facility] Outpatient Encounter [id number] 07/01 [facility] Outpatient Encounter [id number] 07/15 [facility] Outpatient Encounter [id number] CAIO GALVAN 07/17 [facility] Outpatient Encounter [id number] 07/20 [facility] MTMS BY PHARM [employer] 15 MIN [id number] Diagnos is: ICD-10- CM Z79.899 Other mcfp (curren t) drug therapy ELMER CERNA 07/23 [facility] Outpatient Encounter [id number] 07/27 [facility] Outpatient Encounter [id number] ALEXRONALDBelkys Bernal 07/28 [facility] Encounter [id number] 08/05 [facility] Outpatient Encounter [id number] JEANINE CARDENAS D 08/05 [facility] Outpatient Encounter [id number] JEANINE CARDENAS 08/09 [facility] Outpatient Encounter [id number] SIMIN LEE 08/[address] [facility] Outpatient Encounter [id number] JEANINE CARDENAS D 08/12 [facility] Outpatient Encounter [id number] SIMIN LEE 08/21 [facility] Outpatient Encounter [id number] 08/23 [facility] Outpatient Encounter [id number] DAVID TOURE 08/25 [facility] Outpatient Encounter [id number] JEANINE CARDENAS D 08/25 [facility] Outpatient Encounter [id number] MYA FOSTER 10/03 [facility] Outpatient Encounter [id number] 11/22 [facility] Outpatient Encounter [id number] 12/04 [facility] En[facility] [id number] SIMIN LEE 12/07 [facility] Outpatient Encounter [id number] JEANINE CARDENAS 12/07 [facility] Outpatient Encounter [id number] 12/09 [facility] Outpatient Encounter [id number] 12/15 [facility] Outpatient Encounter [id number] 12/15 [facility] OFFICE O/P EST MOD 30 MIN [id number] Diagnos is: ICD-10- CM E11.9 Type 2 diabete s mellitu s without complic ations LIZA ISSA 12/15 [facility] Outpatient Encounter [id number] 12/15 [facility] IMG RTA DETCJ/MNTR DS STAFF [id number] Diagnos is: ICD-10- CM Z13.5 Encount er for screeni ng for eye and ear disorde rs SIMIN LEE 12/15 [facility] IMG RTA DETC/MNTR DS PHY/QHP [id number] Diagnos is: ICD-10- CM Z13.5 Encount er for screeni ng for eye and ear disorde SIMIN Baker U[place] Valdez 12/15 [facility] NQHP OL DIG ASSMT&MGMT 5-10 [id number] Diagnos is: ICD-10- CM Z51.81 Encount er for therape utic drug level monitor karen MLPAM MORALES M 12/28 [facility] NQHP OL DIG ASSMT&MGMT 5-10 [id number] Diagnos is: ICD-10- CM I82.409 Acute embolis m and thombos unsp deep vn unsp lower extremi ty PAM LICONA M 12/30 [facility] MTMS BY PHARM EST 15 MIN [id number] Diagnos is: ICD-10- CM Z51.81 Encount er for therape utic drug level monitor karen RETA DIANE 01/07 [facility] Social History Combined list of available smoking, tobacco, and other social history from [facility] of Defense and [facility] facilities. Social History Type Response Date Comment Source Tobacco smoking status WVIS [facility] FORMER USER 07/23/2024 [facility] History of tobacco use VA-TOBACCO QUIT 15 YRS OR MORE 07/23/2024 [facility] History of tobacco use VA-TOBACCO QUIT 15 YRS OR MORE 04/09/2023 [facility] History of tobacco use VA-TOBACCO NEVER USED 01/10/2022 [facility] History of tobacco use VA-TOBACCO FORMER USER 09/04/2021 [facility] History of tobacco use VA-TOBACCO FORMER USER 07/26/2020 [facility] History of tobacco use VA-TOBACCO QUIT 15 YRS OR MORE 04/25/2020 [facility] History of tobacco use VA-TOBACCO NEVER USED 04/08/2019 [facility] History of tobacco use QUIT TOBACCO >7 YEARS AGO 10/17/2016 [facility] History of tobacco use V7-NO TOBACCO USE > 7 YEARS 03/21/2016 38 YEARS [facility] History of tobacco use NON-TOBACCO USER 04/05/2015 [facility] History of tobacco use V7-NO TOBACCO USE > 7 YEARS 04/05/2015 [facility] History of tobacco use V7-LIFETIME TOBACCO NON USER 07/19/2014 [facility] History of tobacco use V7-LIFETIME TOBACCO NON USER 05/30/2013 [facility] History of tobacco use V7-NO TOBACCO USE > 7 YEARS 06/03/2012 [facility] History of tobacco use V7-LIFETIME TOBACCO NON USER 05/09/2011 [facility] History of tobacco use V7-NO TOBACCO USE > 7 YEARS 06/03/2009 [facility] History of tobacco use V7-TOBACCO QUIT DATE 03/09/2008 [facility] History of tobacco use V7-HX TOBACCO USER >12 MONTHS <7 YEARS 03/09/2008 [facility] History of tobacco use V7-LIFETIME TOBACCO NON USER 01/31/2007 [facility] History of tobacco use V7-LIFETIME NON/TOBACCO USER 01/01/2006 [facility] History of tobacco use LIFETIME NON-TOBACCO USER 12/10/2002 [facility] History of tobacco use CURRENT NON-TOBACCO USER-HX OF USE 11/13/2001 [facility] History of tobacco use CURRENT NON-TOBACCO USER-RECENTLY QUIT 03/18/2001 stopped long ago [facility] History of tobacco use PREVIOUS SMOKER 12/03/2000 [facility] Advance Directives List of completed, amended, or rescinded Advance Directives on record at Department of [facility] Affairs facilities. An actual copy of the Directive is not included. Date Advance Directive Provider Source 06/02/1997 ADVANCE DIRECTIVE MARILYN BARRERA [facility]
--- OUTSIDE RECORDS SUMMARY | 2025-02-14 06:31 | XMS_ITS | CONTINUITY OF CARE DOCUMENT ---
Author Name monica anderson Address Unknown Organization [facility] Address [address] [place] [address] Phone [phone] Care Team Providers Care Digital Solutions Architect Name Role Phone Jessy Sofia MD Unavailable SANJUANITA ERNST MD Unavailable SANJUANTIA ERNST MD Unavailable PROBLEMS Condition Status Date [...] Campbell Soto Bifascicular block active Campbell Soto Cardiology examination active Jessy mckeon MD ENCOUNTERS Date Type Provider Location Encounter Diag nosis - In-person encounter Office Visit Jessy Sofia MD [facility] Cardiology examination - In-person encounter Office Visit Braxton Gee MD [facility] - In-person encounter Office Visit Braxton Gee MD [facility] - In-person encounter Office Visit Braxton Gee MD [facility] BradycardiaBifascicular block - In-person encounter Office Visit Jessy Sofia MD [facility] SyncopeHematuria - In-person encounter Office Visit Jessy Sofia MD [facility] DM - type 2HTN essentialOsteoarthritisHypercoagulable stateOld myocardial infarctionDVT VITAL SIGNS Date Observation Value Provider Body Mass Index (Ratio) 29.55 kg/m2 Ria Sofia MD blood pressure, diastolic 77 mm[Hg] Armida desai [facility] blood pressure, systolic 132 mm[Hg] Fiona lu [facility] oxygen saturation, oximetry 97 % Conchis [facility] pulse rate 60 /min Conchis [facility] blood pressure, cuff size regular Armida desai [facility] weight E&M 224 [lb_av] Conchis [facility] height E&M 73 [in_i] [facility] Body Mass Index (Ratio) 27.70 kg/m2 Jacek Gee MD blood pressure, diastolic 75 mm[Hg] Lore Iraheta blood pressure, systolic 153 mm[Hg] Macy Iraheta oxygen saturation, oximetry 98 % Velia Iraheta pulse rate 69 /min Velia Iraheta respiratory rate E&M 12 /min Velia Iraheta blood pressure, cuff size regular Lore Iraheta weight E&M 210 [lb_av] Velia Iraheta height E&M 73 [in_i] Velia Iraheta Body Mass Index (Ratio) 27.44 kg/m2 Jacek Gee MD blood pressure, diastolic 76 mm[Hg] [facility], systolic 150 mm[Hg] Macy [facility], oximetry 94 % [facility] pulse rate 74 /min [facility] respiratory rate E&M 12 /min [facility] weight E&M 208 [lb_av] [facility] height E&M 73 [in_i] [facility] blood pressure, cuff size regular [facility] Body Mass Index (Ratio) 27.97 kg/m2 Karel Soto oxygen saturation, oximetry 98 % Madison Moreland pulse rate 57 /min Madison [facility] blood pressure, diastolic 64 mm[Hg] Garry Ferris blood pressure, systolic 135 mm[Hg] Dangelo ri Aniceto weight E&M 212 [lb_av] Madison [facility] height E&M 73 [in_i] Madison [facility] Body Mass Index (Ratio) 26.65 kg/m2 Ria Sofia MD blood pressure, diastolic 65 mm[Hg] Lore mccoySt[facility] blood pressure, systolic 120 mm[Hg] Macy [facility]St[facility] oxygen saturation, oximetry 98 % [facility] pulse rate 68 /min [facility] respiratory rate E&M 14 /min [facility] weight E&M 202 [lb_av] [facility] height E&M 73 [in_i] [facility] blood pressure, cuff size regular An iyah Iraheta Body Mass Index (Ratio) 29.42 kg/m2 Karel as Charles blood pressure, diastolic 75 mm[Hg] Li nkLogic blood pressure, systolic 130 mm[Hg] Danielle kLogic blood pressure, cuff size regular Fa gennaro Tapia blood pressure, diastolic 75 mm[Hg] Fa gennaro [place] blood pressure, systolic 130 mm[Hg] Addison [facility] pulse rate 86 /min Elisa [place] oxygen saturation, oximetry 96 % [facility] respiratory rate E&M 16 /min Elisa Bernal iller weight E&M 223 [lb_av] [facility] height E&M 73 [in_i] [facility] ALLERGIES Allergy Name Onset Date Reaction Criticality [...] MD Eliquis 5 mg tablet active Jessy Kimble 1.5 mg/0.5 mL pen injector active Jessy Sofia MD omeprazole 20 mg capsule,delayed release(/EC) active Jessy Sofia MD Synjardy XR 5-1,000 mg tablet, IR - ER, biphasic 24hr active Jessy Kimble 3 mg/0.5 mL pen injector completed - 5 Jessy Kimble 1.5 mg/0.5 mL pen injector completed - 5 Sanjaya N Saheta MD Myrbetriq 50 mg tablet extended release [...] surgery, 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 y,Hx of Saulius Budvaitis smoking status Former smoker Campbell Nagel kvng smoking status Former smoker Jessy carrasquillo MD smoking status Former smoker Jessy carrasquillo MD FUNCTIONAL STATUS Date Observation Value Provider HRA, CV Assess/Plan, Angina (inactive) Management Plan continue current therapy Jessy Sofia MD INSURANCE PROVIDERS Payer name Policy type / Coverage type [place] red green party ID [employer] MEDICARE ADVANTAGE ST 0 003 (HMO POS) Medicare [id number] [facility] Medicaid 4 [id number] ADVANCE DIRECTIVES Name Date DISCUSSED - NO DECISION MADE TREATMENT PLAN Date Name Performer Cardiology: Annie Jhaveri. Had hematuria. Was evaluated at [place] and has chronic acosta. Jessy Sofia MD Cardiology: Annie Jhaveri. Had hematuria. Was evaluated at [place] and has chronic acosta. S ays that he was told he has sticky blood in the past, currently on eliquis T his visit has been a part of the consistent, comprehensive, and ongoing management of the chronic medical condition(s) listed above for the patient. Jessy Sofia MD Cardiology: Annie Jhaveri. Had hematuria. Was evaluated at [place] and has chronic acosta. Jessy Sofia MD Cardiology: H is updated medication list for this problem includes: Lisinopril 2.5 Mg Tablet (Lisinopril) Jessy Sofia MD Cardiology:unclear w hy he passed out pacer check to be done today Jessy Sofia MD Electrophysiology Braxton simmons MD Electrophysiology: H [...] Tablet (Lisinopril) Braxton Gee MD Electrophysiology: O n Shakila. Had hematuria. Was evaluated at [place] and has chronic acosta. S ays that he was told he has sticky blood in the past, currently on eliquis T his visit has been a part of the consistent, comprehensive, and ongoing management of the chronic medical condition(s) listed above for the patient. Campbell Soto Electrophysiology:As per above, will arrange for BIv device Campbell Soto Electrophysiology:No t on any AV kaden blocking agents H e had a monitor that showed slowest rate is 53 bpm W ill arrange for BIV device implant W Ill have him see Marlen as I suspect he will need a dual chamber PPM as he has prolonged WI and prolonged QRS and 2 syncopal events. José Miguel allred Tele for 1 week. Not on AV kaden blockage agents such as BB or CCB Campbell Soto Electrophysiology:No t appropriate candidate for CCB or BB due to h/o syncope His updated medication list for this problem includes: Lisinopril 2.5 Mg Tablet (Lisinopril) BP today: 135/64 P rior BP: 120/65 (08/06/2024) Campbell Soto Electrophysiology: O n Eliquis. Had hematuria. Was evaluated at [place] and has chronic acosta. Campbell Soto Cardiology: H is updated medication list for this problem includes: Trulicity 1.5 Mg/0.5 Ml Pen Injector (Dulaglutide) Synjardy Xr 5-1,000 Mg Tablet, Ir - Er, Biphasic 24hr (Empagliflozin-metformin) Lisinopril 2.5 Mg Tablet (Lisinopril) Metformin 500 Mg Tablet Extended Release 24 Hr (Metformin) Jessy Sofia MD Cardiology: a bnormal EKG suggestive of old inferior wall; ID , had stents in [id number], ID in , done at [place] on asa 81mg H is updated medication list for this problem includes: Lisinopril 2.5 Mg Tablet (Lisinopril) Jessy Sofia MD Cardiology:On Eliqui s. Had hematuria. Was evaluated at [place] and has chronic acosta. S ays that he was told he has sticky blood in the past, currently on eliquis T his visit has been a part of the consistent, comprehensive, and ongoing management of the chronic medical condition(s) listed above for the patient. Jessy Sofia MD Cardiology:On Eliqui s. Had hematuria. Was evaluated at [place] and has chronic acosta. Jessy Sofia MD Cardiology:On Eliqui s. Had hematuria. Was evaluated at [place] and has chronic acosta. Jessy Sofia MD [...] dual chamber PPM as he has prolonged WI and prolonged QRS and 2 syncopal events. C isaiask Tele for 1 week. Not on AV kaden blockage agents such as BB or CCB Jessy Sofia MD Cardiology: H is updated medication list for this problem includes: Lisinopril 2.5 Mg Tablet (Lisinopril) BP today: 130/75 Jessy Sofia MD Cardiology:takes prednsione and diclofenac Jessy Sofia MD Cardiology:Says that he was told he has sticky blood in the past, currently on shakila Sofia MD Cardiology:abnormal EKG suggestive of old inferior wall; ID , had stents in [id number], ID in , done at [place] on asa 81mg H is updated medication list for this problem includes: Lisinopril 2.5 Mg Tablet (Lisinopril) Jessy Sofia MD Cardiology:recalls h aving DVT in RLE , currently on shakila Sofia MD Date Name Dr. Gee Dual Chamber with Re programming EKG PARTIAL THROMBOPLAST IN TIME, ACTIVATED URINALYSIS, [...] tatus Complex e/m visit ad d on Jessy Sofia MD completed EKG Jessy Sofia MD compl eted Complex e/m visit ad d on Braxton Gee MD completed Complex e/m visit ad d on Braxton Gee MD completed Complex e/m visit ad d on Jessy Sofia MD completed
--- OUTSIDE RECORDS SUMMARY | 2025-02-14 06:31 | XMS_ITS | Encounter Summary ---
Author Organization [facility] Address 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
--- OUTSIDE RECORDS SUMMARY | 2025-02-14 06:31 | XMS_ITS | Encounter Summary ---
Author Organization [facility] Address 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
--- OUTSIDE RECORDS SUMMARY | 2025-02-14 06:31 | XMS_ITS | Encounter Summary ---
Author Organization [facility] Address 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
--- OUTSIDE RECORDS SUMMARY | 2025-02-14 06:31 | XMS_ITS | Encounter Summary ---
Author Organization [facility] Address 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
--- OUTSIDE RECORDS SUMMARY | 2025-02-14 06:31 | XMS_ITS ---
Author Organization [facility] Address [address] [facility] [address] [facility] [address] [place] [address] Care Team Providers Care Rug Cutter Name Role Phone AvilaAlanaMelvin Unavailable [phone] PROBLEMS Problem Type ICD Code Onset Dates Problem Status W/U Status Risk SNOMED Code Notes Problem Stage 3 chronic kidney disease (N18.30) Active confirmed Chronic kidney disease stage 3 (disorder) (386486413) Problem Type 2 diabetes mellitus with diabetic chronic kidney disease (E11.22) Active confirmed Diabetic renal disease (778613332) Problem Essential hypertension (I10) Active confirmed Essential hypertension (23341916) Problem Hyperlipidemia, unspecified (E78.5) Active confirmed Hyperlipidemia (92688122) Encounters Encounter Location Date Provider Diagnosis [place] [facility] [address] [facility] [address] [place] [address] 09/09/2024 Melvin Avila Stage 3 chronic kidn [...] MARY GRACE LAUDOB: [birth year] (79 yo M)Acc No.[id number]:09/09/2024 Progress Notes Patient: MARY GRACE LAU Provider: MD KEVIN, F.A.C.P, F.A.S.N. :1945 Age:79 Y Sex:Male Date:09/09/2024 Address:[address] [place] [address] Subjective: * Chief Complaints: * * Medical History: Objective: Assessment: * Assessment: 1. Stage 3 chronic kidney disease - N18.30 (Primary) 2. Type 2 diabetes mellitus with diabetic chronic kidney disease - E11.22 3. Essential hypertension - I10 4. Hyperlipidemia, unspecified - E78.5 Plan: * Treatment: * Billing Information: * Visit Code: 48867 Office Visit, New Pt., Level 5. * Procedure Codes: * Sign off status: Pending * Provider: MD KEVIN, F.A.C.P, F.A.S.N. Date: 09/09/2024
--- OUTSIDE RECORDS SUMMARY | 2025-02-14 06:31 | XMS_ITS | Clinical Summary ---
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 Gender Identity Not on file Sexual Orientation [...] history exists Medical Devices Implanted Type Area Undergraduate Internship Device Identifier Shelf Expiration Date Model / Serial / Lot Knee Description:bilateral Hardware Description:head Procedures Procedure Name Priority Date/Time Associated Diagnosis Comments HEMOGLOBIN A1C Routine 12/07/2023 11:36 PM CDT MICROALBUMIN/CREATIN INE RATIO, RANDOM UR Routine 09/29/2020 1:44 PM MANAGER CULINARY Uncontrolled type 2 diabetes mellitus with diabetic polyneuropathy, without long-term current use of insulin LIPID PANEL Routine 09/29/2020 1:44 PM MANAGER CULINARY Uncontrolled type 2 diabetes mellitus with diabetic polyneuropathy, without long-term current use of insulin from Last 3 Months or Most Recently Relevant to Health Maintenance Results * (ABNORMAL) HEMOGLOBIN A1C (12/07/2023 11:36 PM CDT) HEMOGLOBIN A1C 7.6(H) <5.7 % 12/08/2023 10:41 AM CDT [facility] EST. AVG GLUCOSE, A1C 171 mg/dL 12/08/2023 10:41 AM CDT [facility] Blood Venipuncture / Unknown 12/07/2023 11:36 PM CDT 12/07/2023 11:40 PM CDT Narrative [facility] - 12/08/2023 10:41 AM CDT HGB A1C INTERPRETATION NORMAL: <5.7% PRE-DIABETES: 5.7 - 6.4% DIABETES: 6.5% OR GREATER us Valdez Castro MD CHEMISTRY ORDERABLES Final Resul t [facility]# [id number] [address] [place] [address] * (ABNORMAL) MICROALBUMIN/CREATININE RATIO, RANDOM UR (09/29/2020 1:44 PM MANAGER CULINARY) MICROALBUMIN, URINE 2.2 No Reference Range mg/dL 09/29/2020 2:48 PM [facility] CREATININE, URINE 38.5(L) 40.0 - 278.0 mg/dL 09/29/2020 2:48 PM [facility] Comment:Reference Range vari es with fluid intake and diet. MICROALBUMIN/ CREAT RATIO, UR 57.1(H) <17.0 mg/g 09/29/2020 2:48 PM [facility] Urine URINE SPECIMEN OBTAINED BY CLEAN CATCH PROCEDURE / Unknown Collection / Unknown 09/29/2020 1:44 PM MANAGER CULINARY 09/29/2020 1:59 PM MANAGER CULINARY [facility] - 09/29/2020 2:48 PM MANAGER CULINARY Condition Microalbumin/Creat ratio Normal Males <17 Normal Females <25 Microalbuminuria Males 17-299 Microalbuminuria Females 25-299 Overt proteinuria >=300 Rafy Ward MD URINE ORDERABLES Final Result [facility]# [id number] [address] [facility] [place] [address] * LIPID PANEL (09/29/2020 1:44 PM MANAGER CULINARY) CHOLESTEROL 93 <200 mg/dL 09/29/2020 2:38 PM [facility] TRIGLYCERIDE 72 <150 mg/dL 09/29/2020 2:38 PM [facility] HDL 53 40 - 59 mg/dL 09/29/2020 2:38 PM [facility] LDL CALCULATED 26 <100 mg/dL 09/29/2020 2:38 PM [facility] NON-HDL CHOLESTEROL 40 <130 mg/dL 09/29/2020 2:38 PM [facility] Blood Venipuncture / Unknown 09/29/2020 1:44 PM MANAGER CULINARY 09/29/2020 1:59 PM MANAGER CULINARY Narrative [facility] - 09/29/2020 2:38 PM MANAGER CULINARY TOTAL CHOLESTEROL mg/dL Desirable <200 Borderline high [...] Ward MD CHEMISTRY ORDERABLES Final Re sult [facility] CLIA# [id number] [address] [place] [address] from Last 3 Months or Most Recently Relevant to Health Maintenance Insurance RX [employer] RX Member Subscriber Plan / Payer (Ef fective 2023-Present) Name:Cosme Javier Relation to Subscriber:Self Name:Cosme Javier Payer ID:Not on file Group ID:[id number] Type:RX Medicare Part D Address: [address] [place] Advance Directives For more information, please contact: [phone] * NO CPR (In Event of Cardiopulmonary [...] 9:43 AM 07/15/2017 5:31 PM Care Teams Lapel Baster Relationship Specialty Start Date End Date Dear, Campbell Bullard DO [address] [place] [address] PCP - General Family Practice 07/09/22
--- OUTSIDE RECORDS SUMMARY | 2025-02-14 06:31 | XMS_ITS | Encounter Summary ---
Author Organization [facility] Address 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
--- OUTSIDE RECORDS SUMMARY | 2025-02-14 06:31 | XMS_ITS | Encounter Summary ---
Author Organization [facility] Health Address [address] [place] [address] Care Team Providers Care Marketing Pr Intern Name Role Phone Abraham Cohn DO Primary Care Provider + Unknown, Provider Primary Care Provider Unavaila ble Encounter Details Date Type Department Care Team (Late st Contact Info) Description 01/05/2021 [facility] Outpatient Visit [facility] Orthopedics - Radiology [address] [place] [address] [place] [address] Document, Scanned Social History Tobacco Use Types Packs/Day Years Used Date Smoking Tobacco: Former Smokeless Tobacco: Never Alcohol Use Standard Drinks/Week Comments No 0 (1 standard drink = 0.6 oz pur e alcohol) Sex and Gender Information Value Date Recorded Sex Assigned at Not on file Legal Sex Male 5:27 AM HEAD 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
--- OUTSIDE RECORDS SUMMARY | 2025-02-14 06:31 | XMS_ITS | Encounter Summary ---
Author Organization [facility] Address 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
--- OUTSIDE RECORDS SUMMARY | 2025-02-14 06:31 | XMS_ITS | Encounter Summary ---
Author Organization [facility] Address 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
--- OUTSIDE RECORDS SUMMARY | 2025-02-14 06:32 | XMS_ITS | Encounter Summary ---
Author Organization [facility] Health Address [address] [place] [address] Care Team Providers Care Molasses And Caramel Operator Name Role Phone Unknown, Provider Primary Care Provider Unavaila ble Reason for Visit * Reason Onset Date Comments Med Question 06/18/2024 Encounter Details Date Type Department Care Team (Late st Contact Info) Description 06/18/2024 Telephone [facility] - Centralized Scheduling [address] [place] [address] Thao Neri MD [address] [address] Med Question Social History Tobacco Use Types Packs/Day Years Used Date Smoking Tobacco: Former Smokeless Tobacco: Never Alcohol Use Standard Drinks/Week Comments No 0 (1 standard drink = 0.6 oz pur e alcohol) Sex and Gender Information Value Date Recorded Sex Assigned at Not on file 

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
[2025-02-14 06:43] VITALS: BP 152/77; PULSE 70; RESP 18; O2SAT 100
--- OUTSIDE RECORDS SUMMARY | 2025-02-14 07:08 | XMS_ITS | Clinical Summary ---
Author Organization [facility] er Address [address] [place] [address] Care Team Providers Care Ear Pull Machine Operator Name Role Phone No, Physician Unavailable Dear, [...] 08/06/2022 Assessment & Plan (08/06/2022 12:13 PM OSTEOPATHIC RESIDENT): Chronic, worsening - Refer to vascular surgery [...] 04/17/2022 Assessment & Plan (11/13/2022 2:04 PM OSTEOPATHIC RESIDENT): Chronic, R anterior tibial (12/12); unprovoked per [...] surgery Assessment & Plan (08/06/2022 12:10 PM OSTEOPATHIC RESIDENT): Chronic, R anterior tibial (12/12); unprovoked per [...] 04/17/2022 Assessment & Plan (08/06/2022 12:14 PM OSTEOPATHIC RESIDENT): Chronic Complications: CAD, HTN, Neuropathy A1c: 8.0 [...] 04/17/2022 Assessment & Plan (08/06/2022 12:20 PM OSTEOPATHIC RESIDENT): Chronic, controlled - lisinopril 2.5mg Assessment & [...] omeprazole 20mg Coronary artery disease invo lving ugashik coronary artery of ugashik heart without angina pectoris 04/17/2022 Assessment & [...] Comments Blood Pressure 137/63 11/20/2022 4:30 PM OSTEOPATHIC RESIDENT Pulse 65 11/20/2022 4:55 PM OSTEOPATHIC RESIDENT Temperature 36 C (96.8 F) 11/20/2022 10:41 AM OSTEOPATHIC RESIDENT Respiratory Rate 18 11/20/2022 10:41 AM OSTEOPATHIC RESIDENT Oxygen Saturation 100% 11/20/2022 4:55 PM OSTEOPATHIC RESIDENT Inhaled Oxygen Concentration - - Weight 104.8 kg (231 lb) 11/20/2022 10:41 AM OSTEOPATHIC RESIDENT Height 177.8 cm (5' 10 ) 11/13/2022 1:42 PM OSTEOPATHIC RESIDENT Body Mass Index 33.15 11/13/2022 1:42 PM OSTEOPATHIC RESIDENT Plan of Treatment Health Maintenance Due Date [...] Diagnosis Comments EGFR STAT 11/20/2022 3:11 PM OSTEOPATHIC RESIDENT HEMOGLOBIN A1C Routine 11/13/2022 2:20 PM OSTEOPATHIC RESIDENT 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, without long-term current use of insulin (HCC) HEPATITIS C RNA, QUANTITATIVE, PCR Routine 05/08/2022 10:08 AM CDT Need for hepatitis C screening test LIPID PANEL Routine 04/17/2022 9:43 AM CDT Coronary artery disease involving ugashik coronary artery of ugashik heart without angina pectoris ALBUMIN CREATININE RATIO, URINE Routine 04/17/2022 9:43 AM CDT 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 73 m2 [facility] Comment: Interpretive Data Reference Interval Normal [...] last reviewed 2021. Blood 11/20/2022 3:11 PM OSTEOPATHIC RESIDENT 11/20/2022 3:16 PM OSTEOPATHIC RESIDENT us Abraham Coello MD LAB BLOOD ORDERABLES Fi nal Result [facility] [address] [facility] Department [place] [address] * (ABNORMAL) Hemoglobin A1c (11/13/2022 2:20 PM OSTEOPATHIC RESIDENT) Hgb A1C 8.6(H) 4.0 - 5.6 % [facility] Estimated Average Glucose 200 mg/dL [facility] Comment: The ADA recommends reporting an estimated Average Glucose (eAG) with all Hemoglobin A1c results using the equation derived from a study of 507 normal and diabetic adults. Minority populations were underrepresented and children were not included. (Diabetes Care 31:7458-8964, 2008). The eAG is not equivalent to a fasting glucose. Blood 11/13/2022 2:20 PM OSTEOPATHIC RESIDENT 11/13/2022 2:41 PM OSTEOPATHIC RESIDENT Campbell Bullard Dear DO LAB BLOOD ORDERABLES Fin al Result Performing Organization Address City/[facility]/ZIP Co de Phone Number [facility] [address] [facility] [place] [address] * Hepatitis C (HCV) RNA PCR, quantitative (05/08/2022 10:08 AM CDT) Pathologist [facility] HCV RNA IU/mL HCV Not Detected IU/mL [...] 8:17 AM CDT Performed at: 01 - [address] [id number] [place] Photograph: Jamar Cooper MD, Phone: [phone] Campbell Bullard Dear DO LAB MICROBIOLOGY - [...] - 04/18/2022 10:10 AM CDT Performed at: [address] [id number] [place] Photograph: Thad Peacock PhD, Phone: [phone] Campbell Bullard Dear DO LAB URINE ORDERABLES Fin al Result Performing Organization Address [facility] de Phone Number [facility] - 01 * Lipid panel (04/17/2022 9:43 AM CDT) Pathologist [facility] Cholesterol 108 100 - 199 mg/dL [facility] - 01 Triglycerides 81 0 - 149 mg/dL [facility] - 01 HDL Cholesterol 42 >39 mg/dL [facility] - 01 VLDL 16 5 - 40 mg/dL [facility] - 01 LDL, calculated 50 0 - 99 mg/dL [facility] - 01 Blood specimen (specimen) 04/17/2022 9:43 AM CDT 04/17/2022 Narrative [facility] - 04/18/2022 7:10 AM CDT Performed at: [address] [id number] [place] Photograph: Thad Peacock PhD, Phone: [phone] Campbell Bullard Dear DO LAB BLOOD ORDERABLES Fin al Result Performing Organization Address [facility] de Phone Number [facility] - 01 * Occult blood, fecal non neoplasm screening (11/22/2017 11:15 AM OSTEOPATHIC RESIDENT) [facility] Collection date , [id number] [facility] Collection time 1, feces 1,115 [facility] Occult blood, fecal Negative Negative [facility] Stool 11/22/2017 11:1 5 AM OSTEOPATHIC RESIDENT 11/22/2017 1:19 PM OSTEOPATHIC RESIDENT Narrative [facility] - 11/22/2017 2:38 PM OSTEOPATHIC RESIDENT Hakeem Muro DO LAB BODY FLUIDS AND STOOLS ORDERABLES Final Result [facility] [address] [facility] [place] [address] from Last 3 Months or Most Recently Relevant to Health Maintenance Insurance [employer] [facility] DUAL COMPLETE [address] [place] [address] [facility] MEDICARE ADVANTAGE Care Teams Ear Pull Machine Operator Relationship Specialty Start Date End Date Dear, Campbell Bullard DO PCP - General Family Medicine 04/13/22 No, Physician 12/21/16
--- OUTSIDE RECORDS SUMMARY | 2025-02-14 07:08 | XMS_ITS | Clinical Summary ---
Author Organization [facility] [employer] Address [address] [place] [address] Care Team Providers Care Soaker Meat Name Role Phone Unknown, Provider Primary Care Provider Unavaila ble Source Comments [facility],non-owned Affiliates and Associated Physician Practices is amultiple site organization consisting of ambulatory clinics and hospital sitesin [place], [place], [place] and [place]. This disclosure is being madepursuant to the Care Everywhere program and may not contain all information available regarding this patient. 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 Gender Identity Not on file Sexual Orientation [...] this topic Medical Devices Explanted Type Area Nailhead Setter Device Identifier Shelf Expiration Date Model / Serial / Lot Stent Tria Sft 6x30 Implanted:Qty: 1 on 03/13/2022 by Chace Dale MD at [facility] Explanted:Qty: 1 on 04/03/2022 by Chace Dale MD at [facility] Left: Ureter [employer]ed 12/06/2024 [id number] / / [id number] Insurance MANAGED MEDICARE [facility] [place]ICAID [place] [facility] MANAGED MEDICARE ADV MEDICAID - [place] [facility] MANAGED MEDICARE ADV Member Subscriber Plan / Payer (Ef fective 2024-Present) Name:Mary Grace Lau Relation to Subscriber:Self Name:Yaya Mary Grace Payer ID:[id number] (NAIC) Type:Medicare-Managed Care Address: [place] [phone] [place]ID - [place] Member Subscriber Plan / Payer (Ef fective for All Dates) Name:Mary Grace Lau Member ID:Not on file Relation to Subscriber:Self Name:YayaMary Grace Payer ID:Not on file Group ID:Not on file Type:Medicaid [place] Address: [place] [id number] [facility] MANAGED MEDICARE ADV Member Subscriber Plan / Payer (Ef fective 2024-Present) Name:Mary Grace Lau Relation to Subscriber:Self Name:Mary Grace Lau Payer ID:[id number] ([facility]) Type:Medicare-Managed Care Address: [address] MEDICAID - [place] [facility] MANAGED MEDICARE ADV Member Subscriber Plan / Payer (Ef fective 2024-Present) Name:Mary Grace Lau Relation to Subscriber:Self Name:Mary Grace Lau Payer ID:[id number] (NAIC) Type:Medicare-Managed Care Address: [address] * Guarantor: MARY GRACE LAU Account [...] Group ID:Not on file Type:Medicaid [place] Address: [address] MANAGED MEDICARE ADV Member Subscriber Plan / Payer (Ef fective 2024-) Name:Mary Grace Lau Relation to Subscriber:Self Name:Mary Grace Lau Payer ID:[id number] (NAIC) Type:Medicare-Managed Care Address: [place] [phone] * Guarantor: MARY GRACE LAU Account Type [...] Group ID:Not on file Type:Medicaid [place] Address: [address] MANAGED MEDICARE ADV * Guarantor: MARY GRACE LAU Account Type Relation to Patient Date of Phone Billing Address Personal/Family [address] [place] [address] MEDICAID - [place] [employer] MANAGED MEDICARE ADV [...] 7:21 PM 12/01/2019 1:11 AM Care Teams Soaker Meat Relationship Specialty Start Date End Date Unknown, Provider PCP - General 02/28/24
--- OUTSIDE RECORDS SUMMARY | 2025-02-14 07:08 | XMS_ITS | Encounter Summary ---
Author Organization [facility] Address 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
--- OUTSIDE RECORDS SUMMARY | 2025-02-14 07:08 | XMS_ITS | Encounter Summary ---
Author Organization [facility] Address 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
--- OUTSIDE RECORDS SUMMARY | 2025-02-14 07:08 | XMS_ITS | CONTINUITY OF CARE DOCUMENT ---
Author Name monica anderson Address Unknown Organization [facility] Address [address] [place] [address] Phone [phone] Care Team Providers Care Oven Loader Name Role Phone Jessy Sofia MD Unavailable SANJUANITA ERNST MD Unavailable [phone] SANJUANITA ERNST MD Unavailable PROBLEMS Condition Status [...] In-person encounter Office Visit Jessy Sofia MD [facility] Cardiology examination - In-person encounter Office Visit Braxton Gee MD [facility] - In-person encounter Office Visit Braxton Gee MD [facility] - In-person encounter Office Visit Braxton Gee MD [facility] BradycardiaBifascicular block - In-person encounter Office Visit Jessy Sofia MD [facility] SyncopeHematuria - In-person encounter Office Visit Jessy Sofia MD [facility] DM - type 2HTN essentialOsteoarthritisHypercoagulable stateOld myocardial infarctionDVT VITAL SIGNS Date Observation Value Provider Body Mass Index (Ratio) 29.55 kg/m2 Ria Sofia MD blood pressure, diastolic 77 mm[Hg] Armida desai [facility] blood pressure, systolic 132 mm[Hg] Fiona lu [facility] oxygen saturation, oximetry 97 % Conchis [facility] pulse rate 60 /min Conchis [facility] blood pressure, cuff size regular Armida desai [facility] weight E&M 224 [lb_av] Conchis [facility] height E&M 73 [in_i] [facility] Body Mass Index (Ratio) 27.70 kg/m2 [...] MD blood pressure, diastolic 76 mm[Hg] [facility], systolic 150 mm[Hg] [facility]acy [facility] oxygen saturation, oximetry 94 % [facility] pulse rate 74 /min [facility] respiratory rate E&M 12 /min [facility] weight E&M 208 [lb_av] [facility] height E&M 73 [in_i] [facility] blood pressure, cuff size regular [facility] Body Mass Index (Ratio) 27.97 kg/m2 Karel Soto oxygen saturation, oximetry 98 % Madison Moreland pulse rate 57 /min Madison Carleen [facility] blood pressure, diastolic 64 mm[Hg] Garry Ferris blood pressure, systolic 135 mm[Hg] Dangelo ri Aniceto weight E&M 212 [lb_av] Madison Carleen [facility] height E&M 73 [in_i] Madison Carleen [facility] Body Mass Index (Ratio) 26.65 kg/m2 Ria Sofia MD blood pressure, diastolic 65 mm[Hg] Lore [facility] blood pressure, systolic 120 mm[Hg] [facility]acy [facility] oxygen saturation, oximetry 98 % [facility] pulse rate 68 /min [facility] respiratory rate E&M 14 /min [facility] weight E&M 202 [lb_av] [facility] height E&M 73 [in_i] [facility] blood pressure, cuff size regular An iyah Iraheta Body Mass Index (Ratio) 29.42 kg/m2 Karel as Charles blood pressure, diastolic 75 mm[Hg] Li nkLogic blood pressure, systolic 130 mm[Hg] Danielle kLogic blood pressure, cuff size regular Fa gennaro Tpaia blood pressure, diastolic 75 mm[Hg] Fa gennaro [place] blood pressure, systolic 130 mm[Hg] Addison [facility] pulse rate 86 /min Elisa [place] oxygen saturation, oximetry 96 % [facility] respiratory rate E&M 16 /min Elisa Bernal iller weight E&M 223 [lb_av] [facility] height E&M 73 [in_i] [facility] ALLERGIES Allergy Name Onset Date Reaction Criticality [...] carrasquillo MD smoking status Former smoker Jessy carrasqiullo MD FUNCTIONAL STATUS Date Observation Value Provider HRA, CV Assess/Plan, Angina (inactive) Management Plan continue current therapy Jessy Sofia MD INSURANCE PROVIDERS Payer name Policy type / Coverage type [place] red libertarian ID [employer] MEDICARE ADVANTAGE ST 0 003 (HMO POS) Medicare [id number] [facility] Medicaid 4 [id number] ADVANCE DIRECTIVES Name Date DISCUSSED - NO DECISION MADE TREATMENT PLAN Date Name Performer Cardiology: Annie Jhaveri. Had hematuria. Was evaluated at [place] and has chronic acosta. Jessy Sofia MD Cardiology: Annie Jhaveri. Had hematuria. Was evaluated at [place] and has chronic acosta. S ays that he was told he has sticky blood in the past, currently on eliquis T his visit has been a part of the consistent, comprehensive, and ongoing management of the chronic medical condition(s) listed above for the patient. Jessy Sofia MD Cardiology: Annie Jhaveri. Had hematuria. Was evaluated at [place] and has chronic acosta. Jessy Sofia MD [...] n Shakila. Had hematuria. Was evaluated at [place] and has chronic acosta. S ays that [...] dual chamber PPM as he has prolonged AK and prolonged QRS and 2 syncopal events. José Miguel allred Tele for 1 week. Not on AV kaden blockage agents such as BB or CCB Campbell Soto Electrophysiology:No t appropriate candidate for CCB or BB due to h/o syncope His updated medication list for this problem includes: Lisinopril 2.5 Mg Tablet (Lisinopril) BP today: 135/64 P rior BP: 120/65 (08/06/2024) Campebll Soto Electrophysiology: O n Eliquis. Had hematuria. Was evaluated at [place] and has chronic acosta. Campbell Soto Cardiology: H is updated medication list for this problem includes: Trulicity 1.5 Mg/0.5 Ml Pen Injector (Dulaglutide) Synjardy Xr 5-1,000 Mg Tablet, Ir - Er, Biphasic 24hr (Empagliflozin-metformin) Lisinopril 2.5 Mg Tablet (Lisinopril) Metformin 500 Mg Tablet Extended Release 24 Hr (Metformin) Jessy Sofia MD Cardiology: a bnormal EKG suggestive of old inferior wall; [place] , had stents in [id number], [place] in , done at [place] on asa 81mg H is updated medication list for this problem includes: Lisinopril 2.5 Mg Tablet (Lisinopril) Jessy Sofia MD Cardiology:On Eliqui s. Had hematuria. Was evaluated at [place] and has chronic acosta. S ays that he was told he has sticky blood in the past, currently on eliquis T his visit has been a part of the consistent, comprehensive, and ongoing management of the chronic medical condition(s) listed above for the patient. Jessy Sofia MD Cardiology:On Eliqui s. Had hematuria. Was evaluated at [place] and has chronic acosta. Jessy Sofia MD Cardiology:On Eliqui s. Had hematuria. Was evaluated at [place] and has chronic acosta. Jessy Sofia MD [...] dual chamber PPM as he has prolonged AK and prolonged QRS and 2 syncopal events. [...] Cardiology:abnormal EKG suggestive of old inferior wall; [place] , had stents in 5915-5844, [place] in , done at [place] on asa 81mg H is updated medication [...]
--- OUTSIDE RECORDS SUMMARY | 2025-02-14 07:08 | XMS_ITS | Encounter Summary ---
Author Organization [facility] Address 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
--- OUTSIDE RECORDS SUMMARY | 2025-02-14 07:08 | XMS_ITS | Referral Summary ---
Author Organization [facility] er Address [address] [place] [address] Care Team Providers Care Basketballs And Footballs Reverser Name Role Phone No, Physician Unavailable Dear, [...] 08/06/2022 Assessment & Plan (08/06/2022 12:13 PM FINANCIAL SERVICES CONSULTANT): Chronic, worsening - Refer to vascular surgery [...] 04/17/2022 Assessment & Plan (11/13/2022 2:04 PM FINANCIAL SERVICES CONSULTANT): Chronic, R anterior tibial (12/12); unprovoked per [...] surgery Assessment & Plan (08/06/2022 12:10 PM FINANCIAL SERVICES CONSULTANT): Chronic, R anterior tibial (12/12); unprovoked per [...] 04/17/2022 Assessment & Plan (08/06/2022 12:14 PM FINANCIAL SERVICES CONSULTANT): Chronic Complications: CAD, HTN, Neuropathy A1c: 8.0 [...] 04/17/2022 Assessment & Plan (08/06/2022 12:20 PM FINANCIAL SERVICES CONSULTANT): Chronic, controlled - lisinopril 2.5mg Assessment & [...] omeprazole 20mg Coronary artery disease invo lving [place] coronary artery of [place] heart without angina pectoris 04/17/2022 Assessment & [...] Comments Blood Pressure 137/63 11/20/2022 4:30 PM FINANCIAL SERVICES CONSULTANT Pulse 65 11/20/2022 4:55 PM FINANCIAL SERVICES CONSULTANT Temperature 36 C (96.8 F) 11/20/2022 10:41 AM FINANCIAL SERVICES CONSULTANT Respiratory Rate 18 11/20/2022 10:41 AM FINANCIAL SERVICES CONSULTANT Oxygen Saturation 100% 11/20/2022 4:55 PM FINANCIAL SERVICES CONSULTANT Inhaled Oxygen Concentration - - Weight 104.8 kg (231 lb) 11/20/2022 10:41 AM FINANCIAL SERVICES CONSULTANT Height 177.8 cm (5' 10 ) 11/13/2022 1:42 PM FINANCIAL SERVICES CONSULTANT Body Mass Index 33.15 11/13/2022 1:42 PM FINANCIAL SERVICES CONSULTANT Plan of Treatment Not on file Procedures Procedure Name Priority Date/Time Associated Diagnosis Comments EGFR STAT 11/20/2022 3:11 PM FINANCIAL SERVICES CONSULTANT HEMOGLOBIN A1C Routine 11/13/2022 2:20 PM FINANCIAL SERVICES CONSULTANT 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, without long-term current use of insulin (HCC) HEPATITIS C RNA, QUANTITATIVE, PCR Routine 05/08/2022 10:08 AM CDT Need for hepatitis C screening test LIPID PANEL Routine 04/17/2022 9:43 AM CDT Coronary artery disease involving [place] coronary artery of [place] heart without angina pectoris ALBUMIN CREATININE RATIO, URINE Routine 04/17/2022 9:43 AM CDT 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 73 m2 [facility] Comment: Interpretive Data Reference Interval Normal [...] last reviewed 2021. Blood 11/20/2022 3:11 PM FINANCIAL SERVICES CONSULTANT 11/20/2022 3:16 PM FINANCIAL SERVICES CONSULTANT us Abraham Coello MD LAB BLOOD ORDERABLES Fi nal Result [facility] [address] [place] [address] * (ABNORMAL) Hemoglobin A1c (11/13/2022 2:20 PM FINANCIAL SERVICES CONSULTANT) [facility] Hgb A1C 8.6(H) 4.0 - 5.6 % [facility] Estimated Average Glucose 200 mg/dL [facility] Comment: The ADA recommends reporting an estimated Average Glucose (eAG) with all Hemoglobin A1c results using the equation derived from a study of 507 normal and diabetic adults. Minority populations were underrepresented and children were not included. (Diabetes Care 31:6218-4420, 2008). The eAG is not equivalent to a fasting glucose. Blood 11/13/2022 2:20 PM FINANCIAL SERVICES CONSULTANT 11/13/2022 2:41 PM FINANCIAL SERVICES CONSULTANT Campbell Bullard Dear DO LAB BLOOD ORDERABLES Fin al Result Performing Organization Address [facility] Phone Number [facility] [address] [place] [address] * Hepatitis C (HCV) RNA PCR, quantitative (05/08/2022 10:08 AM CDT) [facility] HCV RNA IU/mL HCV Not Detected [...] - 05/10/2022 8:17 AM CDT Performed at: [address] [place] [id number] Contact Printer Dry Film: Jamar Cooper MD, Phone: [phone] Campbell Bullard Dear DO LAB MICROBIOLOGY - [...] - 04/18/2022 10:10 AM CDT Performed at: [address] [place], [place] [id number] Contact Printer Dry Film: Thad Peacock PhD, Phone: [phone] Campbell Bullard Dear DO LAB URINE ORDERABLES [...] - 04/18/2022 7:10 AM CDT Performed at: [address] [place] [id number] Contact Printer Dry Film: Thad Peacock PhD, Phone: [phone] Campbell Bullard Dear DO LAB BLOOD ORDERABLES Fin al Result [facility] - 01 * Occult blood, fecal non neoplasm screening (11/22/2017 11:15 AM FINANCIAL SERVICES CONSULTANT) Collection date , feces [id number] [facility] Collection time 1, feces 1,115 [facility] Occult blood, fecal Negative Negative [facility] Stool 11/22/2017 11:1 5 AM FINANCIAL SERVICES CONSULTANT 11/22/2017 1:19 PM FINANCIAL SERVICES CONSULTANT Narrative [facility] - 11/22/2017 2:38 PM FINANCIAL SERVICES CONSULTANT Hakeem Muro DO LAB BODY FLUIDS AND STOOLS ORDERABLES Final Result Performing Organization Address City/[facility]/ZIP Co de Phone Number [facility] [address] [place] [address] from Last 3 Months or Most Recently Relevant to Health Maintenance Insurance [place] [employer] [facility] DUAL COMPLETE [id number] [facility] MEDICARE Address: [address] [place] [address] [employer] [facility] MEDICARE ADVANTAGE [facility] MEDICARE Address: [address] [address] [place] [address] Care Teams Basketballs And Footballs Reverser Relationship Specialty Start Date End Date Dear, Campbell Bullard DO PCP - General Family Medicine 04/13/22 No, Physician 12/21/16
--- OUTSIDE RECORDS SUMMARY | 2025-02-14 07:09 | XMS_ITS | Encounter Summary ---
Author Organization [facility] Address [address] [place] [address] Care Team Providers Care Churn Tender Name Role Phone Unknown, Provider Primary Care Provider Unavaila ble Reason for Visit * Reason Onset Date Comments Med Question 06/18/2024 Encounter Details Date Type Department Care Team (Late st Contact Info) Description 06/18/2024 Telephone [facility] - Centralized Scheduling [address] [place] [address] Thao Neri MD [address] [place] [address] Med Question Social History Tobacco Use Types Packs/Day Years Used Date Smoking Tobacco: Former Smokeless Tobacco: Never Alcohol Use Standard Drinks/Week Comments No 0 (1 standard drink = 0.6 oz pur e alcohol) Sex and Gender Information Value Date Recorded Sex Assigned at Not on file 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
--- OUTSIDE RECORDS SUMMARY | 2025-02-14 07:09 | XMS_ITS | Encounter Summary ---
Author Organization [facility] Address 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
--- OUTSIDE RECORDS SUMMARY | 2025-02-14 07:09 | XMS_ITS | Continuity of Care Document ---
Author Name [facility] Organization [facility] Care Team Providers Care Budget Coordinator Name Role Phone [facility] Unavailable Unavailable Problems Combined list of problems from Department of Defense and Veterans Affairs facilities. It does not include entries that were removed or entered in error. Problem Status Onset Date Problem Type Date of Resolution Comments Source Acute Deep Vein Thrombosis of Lower Limb ([facility] [id number]) Active 022 Condition Jan 18, 2022 Entered By: STONE DEL CASTILLO Comment: ER visit [facility] with Dr Max Sevilla [facility] Lumbago Active 996 Condition [facility] Adjustment disorder with mixed emotional features Active Condition [facility] Allergic rhinitis Active Condition [facility] Allergic Rhinitis ([facility] [id number]) Active Condition [facility] Bacterial urinary infection Active Condition [facility] Benign essential hypertension Active Condition [facility] Benign Prostatic Hypertrophy Without Outflow Obstruction ([facility] [id number]) Active Condition [facility] CAD - Coronary artery disease Active Condition [facility] CAD - Coronary Artery Disease ([facility] [id number]) Active Condition Jul 26, 2020 Entered By: TI JOSHUA Comment: s/p NM & PCI/stent [facility] CALCANEAL SPUR Active Condition [facility] Cardiomyopathy Active Condition [facility] Cerebral artery occlusion Active Condition [facility] Cerebral infarction Active Condition [facility] Cervical Spinal Stenosis ([facility] [id number]) Active Condition [facility] Chest pain Active Condition [facility] Chronic venous insufficiency Active Condition [facility] Congestive heart failure Active Condition [facility] Coronary arteriosclerosis Active Condition [facility] Coronary arteriosclerosis Active Condition [facility] DANDRUFF Active Condition [facility] Dementia Active Condition [facility] Depression Active Condition [facility] Depressive disorder Active Condition [facility] [place] Diabetes Mellitus Type 2 ([facility] [id number]) Active Condition [facility] Diabetes Mellitus Type II or unspecified with Neurological Manifestations Active Condition May 30, 2013 Entered By: DAMI MAGANA NN Comment: see list of NON VA meds (glipizide / metformin) [facility] Diabetic Neuropathies (ICD-9-CM 250.60/357.2) Active Condition [facility] DISC DISPLACEMENT NOS Active Condition [facility] DJD Active Condition [facility] Dry Eye Syndrome [facility] Dyslipidemia (ICD-9-CM 272.4) Active Condition [facility] Edema Active Condition [facility] Exposure to potentially hazardous substance Active Condition [facility] FACIAL NERVE DIS NEC Active Condition [facility] Finding related to compliance with treatment Active Condition [facility] Gastroenteritis Active Condition [facility] GERD - Gastro-Esophageal Reflux Disease ([facility] [id number]) Active Condition [facility] Gout Active Condition [facility] H/O: Stroke ([facility] [id number]) Active Condition [facility] HEADACHE Active Condition [facility] Health Maintenance Active Condition N 2008 Entered By: DAMI MAGANA NN Comment: on RX from LMD/doesn't know names/will bring list nxt visit [facility] HERED FRUCTOSE INTOLERAN Active Condition [facility] History of cholecystectomy Active Condition Apr 26, 2020 Entered By: STONE DEL CASTILLO Comment: patient reports done in early 2019 [facility] [place] Plaque Active Condition [facility] Homeless single person Active Condition [facility] Hyperlipidemia Active Condition [facility] Hypertensive disorder Active Condition [facility] IDIO PERIPH NEURPTHY NEC Active Condition [facility] Insect Bite NEC (ICD-9-CM 919.4) Active Condition [facility] Kidney Stone ([facility] [id number]) Active Condition [facility] Fpc (current) use of Anticoagulants Active Condition Aug 03, 2009 Entered By: DAMI MAGANA NN Comment: PT TAKES COUMADIN FROM IN COMMUNITY [facility] Low Back Pain Active Condition [facility] Low back pain (SNOMED CT 767517815) Active Condition [facility] Marital/family problems (ICD-9-CM V61.0) Active Condition [facility] Memory loss (ICD-9-CM 780.93) Active Condition [facility] Mood Disorder due to a General Medical Condition (ICD-9-CM 293.83) Active Condition [facility] Normal grief reaction Active Condition [facility] Numbness and tingling sensation of skin Active Condition [facility] Obesity Active Condition [facility] Obesity * (ICD-9-CM 278.00) Active Condition [facility] Osteitis deformans (SNOMED CT 9515385) Active Condition [facility] Osteoarthritis (SCT 397805201) Active Condition Jul 26, 2020 Entered By: TI JOSHUA Comment: s/p B [facility] Osteoarthritis * (ICD-9-CM 715.90) Active Condition [facility] Other General Symptoms (ICD-9-CM 780.9) Active Condition Nov 18, 2001 Entered By: KAYCEE ISRAEL Comment: Episodic loss of consciousness [facility] OTHER SEBORRHEIC DERMATITIS Active Condition [facility] Overactive bladder Active Condition [facility] PAGET'S DISEASE Active Condition [facility] POSTTRAUM STRESS Active Condition [facility] PVD * (ICD-9-CM 443.9) Active Condition [facility] Relationship distress with spouse or intimate partner Active Condition [facility] Restless legs Active Condition [facility] SKIN ANOMALY NEC Active Condition [facility] Sleep Apnea (SCT 94418345) Active Condition Jul 26, 2020 Entered By: TI JOSHUA Comment: intolerant of CPAP [facility] Spinal Stenosis of Lumbar Region (SCT 09510957) Active Condition [facility] Sprain of unspecified site of knee and leg (ICD-9-CM 844.9) Active Condition [facility] SURGERY FOLLOW-UP Active Condition [facility] Tick bite Active Condition [facility] Type II diabetes mellitus uncontrolled Active Condition [facility] Unresolved Active Condition [facility] URIN TRACT INFECTION NOS Active Condition [facility] Vascular dementia (SNOMED CT 185428188) Active Condition [facility] Vision, abnormal Active Condition [facility] Vitamin D deficiency Active Condition [facility] Xeroderma Active Condition [facility] Acute conjunctivitis (ICD-9-CM 372.00) Inactive Condition 08/03/2009 [facility] Acute sinusitis (ICD-9-CM 461.9) Inactive Condition 08/03/2009 [facility] DM Type II w/o Eye Disease Inactive Condition 08/03/2009 [facility] Gastroenteritis * (ICD-9-CM 558.9) Inactive Condition 08/03/2009 [facility] Hip: arthralgia (pain on rotation, pain in groin) * (ICD-9-CM 719.45) Inactive Condition 08/03/2009 [facility] Influenza * (ICD-9-CM 487.1) Inactive Condition 08/03/2009 [facility] Diagnosis: ICD-10-CM Z51.81 Encounter for therapeutic drug level monitoring Active Diagnosis [facility] Diagnosis: ICD-10-CM I82.409 Acute embolism and thombos unsp deep vn unsp lower extremity Active Diagnosis [facility] Diagnosis: ICD-10-CM Z13.5 Encounter for screening for eye and ear disorders Active Diagnosis [facility] Diagnosis: ICD-10-CM E11.9 Type 2 diabetes mellitus without complications Active Diagnosis [facility] Diagnosis: ICD-10-CM Z79.899 Other usp (current) drug therapy Active Diagnosis [facility] Diagnosis: ICD-10-CM I25.10 Athscl heart disease of [place] coronary artery w/o ang pctrs Active Diagnosis [facility] Diagnosis: ICD-10-CM M25.562 Pain in left knee Active Diagnosis [facility] Diagnosis: ICD-10-CM M79.605 Pain in left leg Active Diagnosis 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 Active Diagnosis [facility] Medications Combined list of outpatient medications [...] FOR ANTICOAG ULATION ORAL SUSPEND ED 12/31/2025 [id number] AMILCAR SHERWOOD S 2024 90 [facility] APIXABAN 5MG TAB TAKE ONE-HALF TABLET BY MOUTH TWICE A DAY FOR ANTICOAG ULATION ORAL DISCONT INUED 01/22/2025 [id number] 5 BARBARA HUNT 2024 60 [facility] APIXABAN 5MG TAB TAKE ONE-HALF TABLET BY MOUTH TWICE A DAY FOR ANTICOAG ULATION ORAL DISCONT INUED (EDIT) 12/23/2024 [id number] 4 BARBARA HUNT 2023 90 [facility] ATORVASTATI N CA 80MG TAB TAKE ONE-HALF TABLET BY MOUTH EVERY EVENING TO LOWER CHOLESTE ROL ORAL ACTIVE 12/16/2025 [id number] 5 LUIS MANUEL,NI DHI [address] [facility] DULAGLUTIDE 1.5MG/0.5ML INJ,SOLN,PE N INJECT 1.5MG/0. 5ML UNDER THE SKIN EVERY WEEK SUBCUT ANEOUS ACTIVE MARY ELLEN DEL CASTILLO [address] [facility] DULAGLUTIDE 1.5MG/0.5ML INJ,SOLN,PE N INJECT 1.5MG (0.5ML) SUBCUTAN EOUSLY EVERY WEEK SUBCUT ANEOUS ACTIVE TARA JOSHUA VIDHI [address] [facility] EMPAGLIFLOZ IN 5MG/METFORM IN 1000MG TAB,ORAL TAKE ONE TABLET BY MOUTH TWICE A DAY ORAL ACTIVE MARY ELLEN DEL CASTILLO 2021 [facility] EMPAGLIFLOZ IN 5MG/METFORM IN 1000MG TAB,ORAL TAKE ONE TABLET BY MOUTH TWO TIMES A DAY ORAL ACTIVE TARA JOSHUA VIDHI [address] [facility] GABAPENTIN 300MG CAP TAKE ONE CAPSULE BY MOUTH TWICE A DAY FOR PAIN ORAL ACTIVE 12/16/2025 [id number] 5 LUIS MANUEL,NI I 2024 [address] [facility] GABAPENTIN 300MG CAP TAKE ONE CAPSULE BY MOUTH TWICE A DAY FOR PAIN ORAL 12/06/2024 [id number] 4 José Miguel TOURE 2023 180 [facility] LISINOPRIL 5MG TAB TAKE ONE-HALF TABLET BY MOUTH ONCE A DAY FOR HEART OR BLOOD PRESSURE ORAL ACTIVE 12/16/2025 [id number] 5 LUIS MANUEL,NI DHI 2024 45 [facility] OMEPRAZOLE 20MG CAP,EC TAKE ONE CAPSULE BY MOUTH TWICE A DAY TO LOWER STOMACH ACID. TAKE 30 MINUTES PRIOR TO FOOD. ORAL ACTIVE 12/16/2025 [id number] 5 LUIS MANUEL,NI DHI 2024 180 [facility] OMEPRAZOLE 20MG CAP,EC TAKE ONE CAPSULE BY MOUTH TWICE A DAY TO LOWER STOMACH ACID. TAKE 30 MINUTES PRIOR TO FOOD. ORAL DISCONT INUED 05/12/2025 [id number] 5 José Miguel TOURE 2023 [address] [facility] OMEPRAZOLE 20MG CAP,EC TAKE ONE CAPSULE BY MOUTH TWICE A DAY TO LOWER STOMACH ACID. TAKE 30 MINUTES PRIOR TO FOOD. ORAL DISCONT INUED 05/07/2024 [id number] 4 MARY ELLEN DEL CASTILLO 2022 [address] [facility] [facility] SERTRALINE HCL 50MG TAB TAKE ONE-HALF TABLET BY MOUTH EVERY MORNING ORAL ACTIVE 12/16/2025 [id number] 5 CHRISTOPHER ISSA DHI 2024 [address] [facility] SERTRALINE HCL 50MG TAB TAKE ONE-HALF TABLET BY MOUTH EVERY MORNING FOR DEPRESSI ON ORAL DISCONT INUED 06/24/2025 [id number] 5 LALIROGER JIMI [address] [facility] SERTRALINE HCL 50MG TAB TAKE ONE-HALF TABLET BY MOUTH EVERY MORNING FOR DEPRESSI ON ORAL DISCONT INUED 12/17/2024 [id number] ROGER ESCALERAA [address] [facility] TAMSULOSIN HCL 0.4MG CAP TAKE ONE CAPSULE BY MOUTH EVERY EVENING APPROXIM ATELY 30 MINUTES AFTER THE SAME MEAL EACH DAY (FOR PROSTATE ) ORAL ACTIVE 12/16/2025 [id number] 5 CHRISTOPHER ISSA I 2024 [address] [facility] Allergies, Adverse Reactions, Alerts Combined list of allergies from Department of Defense and Veterans Affairs facilities. It does not include entries that were removed or entered in error. Substance Category Reaction Severity Reaction type Status Date Reported Comments Source AMITRIPTYLIN E Propensity to adverse reactions to drug (finding) Physical aggression active 2 [facility] ASPIRIN Propensity to adverse reactions to drug (finding) active 5 [facility] METFORMIN Propensity to adverse reactions to drug (finding) Diarrhea active 3 [facility] MORPHINE Propensity to adverse reactions to drug (finding) Physical aggression active 2 [facility] OXCARBAZEPIN E Propensity to adverse reactions to drug (finding) Psychotic disorder active 2 [facility] PENICILLIN Propensity to adverse reactions to drug (finding) active 5 [facility] PENICILLIN Propensity to adverse reactions to drug (finding) HIVES active 3 [facility] PENICILLIN Propensity to adverse reactions to drug (finding) Urticaria active 0 [facility] MIKAEL BAILEY 15 TRAZODONE Propensity to adverse reactions to drug (finding) Bleeding active [address] [facility] Immunizations Combined list of available immunizations from the Department of Defense and Veterans Affairs facilities. Immunization Series Date Given Administered By Site Reaction Lot Number CVX Code Drug Duct Layer Supervisor Status Comments Source INFLUENZA, UNSPECIFIED FORMULATION 2020 88 complet ed [facility], VISN 15 INFLUENZA, SEASONAL, INJECTABLE, PRESERVATIVE FREE 2016 140 complet ed [facility] PNEUMOCOCCAL CONJUGATE PCV 13 2016 133 complet ed [facility] INFLUENZA, UNSPECIFIED FORMULATION 2014 88 complet ed NOVARTIS/ [id number]/ [facility] PNEUMOCOCCAL CONJUGATE PCV 13 2014 133 complet ed [facility] INFLUENZA, UNSPECIFIED FORMULATION 2013 88 complet ed as per Mitchell [facility] PNEUMOCOCCAL POLYSACCHARID E PPV23 2013 33 complet ed Merck/Lot # [id number], January 30, 2015 [facility] INFLUENZA, UNSPECIFIED FORMULATION 2013 88 complet ed CSL BIOTHERAP IES/[id number] [facility] INFLUENZA, UNSPECIFIED FORMULATION 2012 88 complet ed Glaxo-Kli ne/[id number] [facility] INFLUENZA (HISTORICAL) 2011 88 complet ed Novartis/ Lot# [id number] [facility] TDAP 2011 115 complet ed Sanofi Pasteur/L ot# [id number] [facility] INFLUENZA (HISTORICAL) 2011 88 complet ed [facility] NOVEL INFLUENZA-H1N 1-09, ALL FORMULATIONS 2009 128 complet ed Novartis/ Lot# [id number] [facility] INFLUENZA (HISTORICAL) 2008 NONE 88 complet ed Completed Series, Left Deltoid [facility] [place] [facility] PNEUMOCOCCAL POLYSACCHARID E PPV23 2008 33 complet ed Right Deltoid [facility] INFLUENZA (HISTORICAL) 2007 88 complet ed [facility] INFLUENZA (HISTORICAL) 2006 88 complet ed Left Deltoid [facility] INFLUENZA (HISTORICAL) 2005 88 complet ed Left Deltoid [facility] INFLUENZA (HISTORICAL) 2004 88 complet ed Left Deltoid [facility] INFLUENZA (HISTORICAL) 2003 88 complet ed Left Deltoid [facility] PNEUMOCOCCAL POLYSACCHARID E PPV23 2003 33 complet ed Left Deltoid [facility] INFLUENZA (HISTORICAL) 2002 88 complet ed Left Deltoid [facility] INFLUENZA, UNSPECIFIED FORMULATION 2000 88 complet ed [facility] TD(ADULT) UNSPECIFIED FORMULATION 2000 139 complet ed [facility] TETANUS TOXOID, UNSPECIFIED FORMULATION 1997 KAYCEE LINDSEY X 112 complet ed [facility] Results Combined list of recent chemistry, hematology and other laboratory results from Department of Defense and Veterans Affairs, ranging from 15 months to all on record, depending upon the facility. Order Name Results Value Reference Range Date Interpretation Specimen Comments Source COMPREHEN SIVE METABOLIC PANEL CREATININE [MASS/VOLUM E] IN SERUM OR PLASMA 0.90 mg/dL 0.7 - 1.3 12/16 Specimen Type: PLASMA Comment: No hemolysis noted. Ordering Provider: LIZA ISSA Report Released Date/Time: Dec 11, 2024 04:22 PM Reporting Lab: [facility] [address] [place] [phone] Performing Lab: [facility] [address] [facility] [phone] [facility] COMPREHEN SIVE METABOLIC PANEL UREA NITROGEN [MASS/VOLUM E] IN SERUM OR PLASMA 19.8 mg/dL 9.0 - 25.0 12/16 Specimen Type: PLASMA Comment: No hemolysis noted. Ordering Provider: LIZA ISSA Report Released Date/Time: Dec 11, 2024 04:22 PM Reporting Lab: [facility] [address] [place] [phone] Performing Lab: [facility] [address] [place] [phone] [facility] COMPREHEN SIVE METABOLIC PANEL GLUCOSE [MASS/VOLUM E] IN SERUM OR PLASMA 167 mg/dL 72 - 99 12/16 H Specimen Type: PLASMA Comment: No hemolysis noted. Ordering Provider: LIZA ISSA Report Released Date/Time: Dec 11, 2024 04:22 PM Reporting Lab: [facility] [address] [facility] [phone] Performing Lab: [facility] [address] [facility] [phone] [facility] COMPREHEN SIVE METABOLIC PANEL SODIUM [MOLES/VOLU ME] IN SERUM OR PLASMA 139 meq/L 136 - 145 12/16 Specimen Type: PLASMA Comment: No hemolysis noted. Ordering Provider: LIZA ISSA Report Released Date/Time: Dec 11, 2024 04:22 PM Reporting Lab: [facility] [address] [facility] [phone] Performing Lab: [facility] [address] [place] [phone] [facility] COMPREHEN SIVE METABOLIC PANEL POTASSIUM [MOLES/VOLU ME] IN SERUM OR PLASMA 4.0 meq/L 3.5 - 5 12/16 Specimen Type: PLASMA Comment: No hemolysis noted. Ordering Provider: LIZA ISSA Report Released Date/Time: Dec 11, 2024 04:22 PM Reporting Lab: [facility] [address] [facility] [phone] Performing Lab: [facility] [address] [facility] [phone] [facility] COMPREHEN SIVE METABOLIC PANEL CHLORIDE [MOLES/VOLU ME] IN SERUM OR PLASMA 102 meq/L 98 - 107 12/16 Specimen Type: PLASMA Comment: No hemolysis noted. Ordering Provider: LIZA ISSA Report Released Date/Time: Dec 11, 2024 04:22 PM Reporting Lab: [facility] [address] [facility] [phone] Performing Lab: [facility] [address] [facility] [phone] [facility] COMPREHEN SIVE METABOLIC PANEL CARBON DIOXIDE, TOTAL [MOLES/VOLU ME] IN SERUM OR PLASMA 26 meq/L 22 - 31 12/16 Specimen Type: PLASMA Comment: No hemolysis noted. Ordering Provider: LIZA ISSA Report Released Date/Time: Dec 11, 2024 04:22 PM Reporting Lab: [facility] [address] [facility] [phone] Performing Lab: [facility] [address] [facility] [phone] [facility] COMPREHEN SIVE METABOLIC PANEL CALCIUM [MASS/VOLUM E] IN SERUM OR PLASMA 10.0 mg/dL 8.4 - 10.4 12/16 Specimen Type: PLASMA Comment: No hemolysis noted. Ordering Provider: LIZA ISSA Report Released Date/Time: Dec 11, 2024 04:22 PM Reporting Lab: [facility] [address] [facility] [phone] Performing Lab: [facility] [address] [facility] [phone] [place] [address] COMPREHEN SIVE METABOLIC PANEL PROTEIN [MASS/VOLUM E] IN SERUM OR PLASMA 7.9 g/dL 6 - 8.6 12/16 Specimen Type: PLASMA Comment: No hemolysis noted. Ordering Provider: LIZA ISSA Report Released Date/Time: Dec 11, 2024 04:22 PM Reporting Lab: [facility] [address] [facility] [address] Performing Lab: [facility] [address] [facility] [address] [facility] COMPREHEN SIVE METABOLIC PANEL ALBUMIN [MASS/VOLUM E] IN SERUM OR PLASMA 4.2 g/dL 3.4 - 5 12/16 Specimen Type: PLASMA Comment: No hemolysis noted. Ordering Provider: LIZA ISSA Report Released Date/Time: Dec 11, 2024 04:22 PM Reporting Lab: [facility] [address] [facility] [phone] Performing Lab: [facility] [address] [place] [phone] [facility] COMPREHEN SIVE METABOLIC PANEL BILIRUBIN.T OTAL [MASS/VOLUM E] IN SERUM OR PLASMA 0.5 mg/dL 0.2 - 1.2 12/16 Specimen Type: PLASMA Comment: No hemolysis noted. Ordering Provider: LIZA ISSA Report Released Date/Time: Dec 11, 2024 04:22 PM Reporting Lab: [facility] [address] [facility] [address] Performing Lab: [facility] [address] [facility] [address] [facility] COMPREHEN SIVE METABOLIC PANEL ALKALINE PHOSPHATASE [ENZYMATIC ACTIVITY/VO LUME] IN SERUM OR PLASMA 133 U/L 40 - 150 12/16 Specimen Type: PLASMA Comment: No hemolysis noted. Ordering Provider: LIZA ISSA Report Released Date/Time: Dec 11, 2024 04:22 PM Reporting Lab: [facility] [address] [facility] [address] Performing Lab: [address] [phone] [facility] COMPREHEN SIVE METABOLIC PANEL ASPARTATE AMINOTRANSF ERASE [ENZYMATIC ACTIVITY/VO LUME] IN SERUM OR PLASMA 27 U/L 5 - 34 12/16 Specimen Type: PLASMA Comment: No hemolysis noted. Ordering Provider: LIZA ISSA Report Released Date/Time: Dec 11, 2024 04:22 PM Reporting Lab: [facility] [address] [facility] [address] Performing Lab: [facility] [address] [facility] [address] [facility] COMPREHEN SIVE METABOLIC PANEL ALANINE AMINOTRANSF ERASE [ENZYMATIC ACTIVITY/VO LUME] IN SERUM OR PLASMA 16 U/L 8 - 40 12/16 Specimen Type: PLASMA Comment: No hemolysis noted. Ordering Provider: LIZA ISSA Report Released Date/Time: Dec 11, 2024 04:22 PM Reporting Lab: [facility] [address] [facility] [address] Performing Lab: [facility] [address] [facility] [address] [facility] COMPREHEN SIVE METABOLIC PANEL GLOMERULAR FILTRATION RATE/1.73 SQ M.PREDICTED [VOLUME RATE/AREA] IN SERUM, PLASMA OR BLOOD BY CREATININE- BASED FORMULA (CKD-EPI 2020) 86.9 60 12/16 Specimen Type: PLASMA Comment: No hemolysis noted. Ordering Provider: LIZA ISSA Report Released Date/Time: Dec 11, 2024 04:22 PM Reporting Lab: [facility] [address] [facility] [address] Performing Lab: [facility] [address] [facility] [address] [facility] HGA1C HEMOGLOBIN A1C/HEMOGLO BIN.TOTAL IN BLOOD 7.3 4.0 - 6.0 12/16 H Specimen Type: BLOOD No comment entered. Ordering Provider: ILZA ISSA Report Released Date/Time: Dec 11, 2024 04:22 PM Reporting Lab: [facility] [address] Performing Lab: [facility] [address] [facility] [address] [facility] LIPID PANEL (STL) CHOLESTEROL [MASS/VOLUM E] IN SERUM OR PLASMA 90 mg/dL 0 - 200 12/16 Specimen Type: PLASMA Comment: No hemolysis noted. Ordering Provider: LIZA ISSA Report Released Date/Time: Dec 11, 2024 04:22 PM Reporting Lab: [facility] [address] [facility] [address] Performing Lab: [facility] [address] [facility] [address] [facility] LIPID PANEL (STL) TRIGLYCERID E [MASS/VOLUM E] IN SERUM OR PLASMA 63 mg/dL 0 - 150 12/16 Specimen Type: PLASMA Comment: No hemolysis noted. Ordering Provider: LIZA ISSA Report Released Date/Time: Dec 11, 2024 04:22 PM Reporting Lab: [facility] [address] [facility] [address] Performing Lab: [facility] [address] [facility] [address] [facility] LIPID PANEL (STL) CHOLESTEROL IN LDL [MASS/VOLUM E] IN SERUM OR PLASMA BY CALCULATION 32 mg/dL 12/16 Specimen Type: PLASMA Comment: No hemolysis noted. Ordering Provider: LIZA ISSA Report Released Date/Time: Dec 11, 2024 04:22 PM Reporting Lab: [facility] [address] [facility] [address] Performing Lab: [facility] [address] [place] [address] [facility] LIPID PANEL (STL) CHOLESTEROL IN HDL [MASS/VOLUM E] IN SERUM OR PLASMA 45 mg/dL 40 12/16 Specimen Type: PLASMA Comment: No hemolysis noted. Ordering Provider: LIZA ISSA Report Released Date/Time: Dec 11, 2024 04:22 PM Reporting Lab: [address] [address] Performing Lab: [address] [address] [facility] MICRAL/CR EAT PROFILE (STL) ALBUMIN [MASS/VOLUM E] IN URINE 226.8 mg/L 12/16 Specimen Type: URINE No comment entered. Ordering Provider: LIZA ISSA Report Released Date/Time: Dec 11, 2024 04:22 PM Reporting Lab: [address] [address] Performing Lab: [address] [address] [facility] MICRAL/CR EAT PROFILE (STL) ALBUMIN/CRE ATININE [MASS RATIO] IN URINE 422 mg/g 0 - 29 12/16 H Specimen Type: URINE No comment entered. Ordering Provider: LIZA ISSA Report Released Date/Time: Dec 11, 2024 04:22 PM Reporting Lab: [address] [address] Performing Lab: [address] [address] [facility] MICRAL/CR EAT PROFILE (STL) CREATININE [MASS/VOLUM E] IN URINE 53.7 mg/dL 63 - 166 12/16 L Specimen Type: URINE No comment entered. Ordering Provider: LIZA ISSA Report Released Date/Time: Dec 11, 2024 04:22 PM Reporting Lab: [facility] [address] [place] [address] Performing Lab: [facility] [address] [place] [phone] [facility] B12 COBALAMIN (VITAMIN B12) [MASS/VOLUM E] IN SERUM OR PLASMA 400 pg/mL 213 - 816 08/11 Specimen Type: SERUM No comment entered. Ordering Provider: JEANINE CARDENAS Report Released Date/Time: Aug 11, 2024 02:09 PM Reporting Lab: [address] [address] Performing Lab: [address] [address] [facility] COMPREHEN SIVE METABOLIC PANEL CREATININE [MASS/VOLUM E] IN SERUM OR PLASMA 1.18 mg/dL 0.7 - 1.3 08/11 Specimen Type: PLASMA Comment: No hemolysis noted. Ordering Provider: JEANINE CARDENAS Report Released Date/Time: Aug 11, 2024 02:09 PM Reporting Lab: [address] [address] Performing Lab: [address] [address] [facility] COMPREHEN SIVE METABOLIC PANEL UREA NITROGEN [MASS/VOLUM E] IN SERUM OR PLASMA 23.5 mg/dL 9.0 - 25.0 08/11 Specimen Type: PLASMA Comment: No hemolysis noted. Ordering Provider: JEANINE CARDENAS Report Released Date/Time: Aug 11, 2024 02:09 PM Reporting Lab: [address] [address] Performing Lab: [address] [address] [facility] COMPREHEN SIVE METABOLIC PANEL GLUCOSE [MASS/VOLUM E] IN SERUM OR PLASMA 94 mg/dL 72 - 99 08/11 Specimen Type: PLASMA Comment: No hemolysis noted. Ordering Provider: JEANINE CARDENAS Report Released Date/Time: Aug 11, 2024 02:09 PM Reporting Lab: [facility] [address] [place] [address] Performing Lab: [facility] [address] [place] [address] [facility] COMPREHEN SIVE METABOLIC PANEL SODIUM [MOLES/VOLU ME] IN SERUM OR PLASMA 139 meq/L 136 - 145 08/11 Specimen Type: PLASMA Comment: No hemolysis noted. Ordering Provider: JEANINE CARDENAS Report Released Date/Time: Aug 11, 2024 02:09 PM Reporting Lab: [address] [address] Performing Lab: [address] [address] [facility] COMPREHEN SIVE METABOLIC PANEL POTASSIUM [MOLES/VOLU ME] IN SERUM OR PLASMA 4.2 meq/L 3.5 - 5 08/11 Specimen Type: PLASMA Comment: No hemolysis noted. Ordering Provider: JEANINE CARDENAS Report Released Date/Time: Aug 11, 2024 02:09 PM Reporting Lab: [facility] [address] [place] [address] Performing Lab: [facility] [address] [place] [address] [facility] COMPREHEN SIVE METABOLIC PANEL CHLORIDE [MOLES/VOLU ME] IN SERUM OR PLASMA 105 meq/L 98 - 107 08/11 Specimen Type: PLASMA Comment: No hemolysis noted. Ordering Provider: JEANINE CARDENAS Report Released Date/Time: Aug 11, 2024 02:09 PM Reporting Lab: [facility] [address] [place] [phone] Performing Lab: [facility] [address] [place] [address] [facility] COMPREHEN SIVE METABOLIC PANEL CARBON DIOXIDE, TOTAL [MOLES/VOLU ME] IN SERUM OR PLASMA 24 meq/L 22 - 31 08/11 Specimen Type: PLASMA Comment: No hemolysis noted. Ordering Provider: JEANINE CARDENAS Report Released Date/Time: Aug 11, 2024 02:09 PM Reporting Lab: [address] [address] Performing Lab: [address] [address] [facility] COMPREHEN SIVE METABOLIC PANEL CALCIUM [MASS/VOLUM E] IN SERUM OR PLASMA 9.7 mg/dL 8.4 - 10.4 08/11 Specimen Type: PLASMA Comment: No hemolysis noted. Ordering Provider: JEANINE CARDENAS Report Released Date/Time: Aug 11, 2024 02:09 PM Reporting Lab: [address] [address] Performing Lab: [address] [address] [facility] COMPREHEN SIVE METABOLIC PANEL PROTEIN [MASS/VOLUM E] IN SERUM OR PLASMA 7.7 g/dL 6 - 8.6 08/11 Specimen Type: PLASMA Comment: No hemolysis noted. Ordering Provider: JEANINE CARDENAS Report Released Date/Time: Aug 11, 2024 02:09 PM Reporting Lab: [address] [address] Performing Lab: [address] [address] [facility] COMPREHEN SIVE METABOLIC PANEL ALBUMIN [MASS/VOLUM E] IN SERUM OR PLASMA 3.9 g/dL 3.4 - 5 08/11 Specimen Type: PLASMA Comment: No hemolysis noted. Ordering Provider: JEANINE CARDENAS Report Released Date/Time: Aug 11, 2024 02:09 PM Reporting Lab: [address] [address] Performing Lab: [address] [address] [facility] COMPREHEN SIVE METABOLIC PANEL BILIRUBIN.T OTAL [MASS/VOLUM E] IN SERUM OR PLASMA 0.5 mg/dL 0.2 - 1.2 08/11 Specimen Type: PLASMA Comment: No hemolysis noted. Ordering Provider: JEANINE CARDENAS Report Released Date/Time: Aug 11, 2024 02:09 PM Reporting Lab: [address] [address] Performing Lab: [address] [address] [facility] COMPREHEN SIVE METABOLIC PANEL ALKALINE PHOSPHATASE [ENZYMATIC ACTIVITY/VO LUME] IN SERUM OR PLASMA 132 U/L 40 - 150 08/11 Specimen Type: PLASMA Comment: No hemolysis noted. Ordering Provider: JEANINE CARDENAS Report Released Date/Time: Aug 11, 2024 02:09 PM Reporting Lab: [address] [address] Performing Lab: [address] [address] [facility] COMPREHEN SIVE METABOLIC PANEL ASPARTATE AMINOTRANSF ERASE [ENZYMATIC ACTIVITY/VO LUME] IN SERUM OR PLASMA 20 U/L 5 - 34 08/11 Specimen Type: PLASMA Comment: No hemolysis noted. Ordering Provider: JEANINE CARDENAS Report Released Date/Time: Aug 11, 2024 02:09 PM Reporting Lab: [address] [address] Performing Lab: [facility] [address] [place] [phone] [facility] COMPREHEN SIVE METABOLIC PANEL ALANINE AMINOTRANSF ERASE [ENZYMATIC ACTIVITY/VO LUME] IN SERUM OR PLASMA 17 U/L 8 - 40 08/11 Specimen Type: PLASMA Comment: No hemolysis noted. Ordering Provider: JEANINE CARDENAS Report Released Date/Time: Aug 11, 2024 02:09 PM Reporting Lab: [address] [address] Performing Lab: [facility] [address] [place], [place] [address] [facility] COMPREHEN SIVE METABOLIC PANEL GLOMERULAR FILTRATION RATE/1.73 SQ M.PREDICTED [VOLUME RATE/AREA] IN SERUM, PLASMA OR BLOOD BY CREATININE- BASED FORMULA (CKD-EPI 2020) 63.2 60 08/11 Specimen Type: PLASMA Comment: No hemolysis noted. Ordering Provider: JEANINE CARDENAS Report Released Date/Time: Aug 11, 2024 02:09 PM Reporting Lab: [facility] [address] [facility] [address] Performing Lab: [facility] [address] [facility] [address] [facility] HGA1C HEMOGLOBIN A1C/HEMOGLO BIN.TOTAL IN BLOOD 7.1 4.0 - 6.0 08/11 H Specimen Type: BLOOD No comment entered. Ordering Provider: JEANINE CARDENAS Report Released Date/Time: Aug 11, 2024 02:09 PM Reporting Lab: [facility] [address] [facility] [address] Performing Lab: [facility] [address] [facility] [address] [facility] LIPID PANEL (STL) CHOLESTEROL [MASS/VOLUM E] IN SERUM OR PLASMA 98 mg/dL 0 - 200 08/11 Specimen Type: PLASMA Comment: No hemolysis noted. Ordering Provider: JEANINE CARDENAS Report Released Date/Time: Aug 11, 2024 02:09 PM Reporting Lab: [facility] [address] [facility] [address] Performing Lab: [facility] [address] [facility] [address] [facility] LIPID PANEL (STL) TRIGLYCERID E [MASS/VOLUM E] IN SERUM OR PLASMA 51 mg/dL 0 - 150 08/11 Specimen Type: PLASMA Comment: No hemolysis noted. Ordering Provider: JEANINE CARDENAS Report Released Date/Time: Aug 11, 2024 02:09 PM Reporting Lab: [facility] [address] [facility] [address] Performing Lab: [address] [address] [facility] LIPID PANEL (STL) CHOLESTEROL IN LDL [MASS/VOLUM E] IN SERUM OR PLASMA BY CALCULATION 43 mg/dL 08/11 Specimen Type: PLASMA Comment: No hemolysis noted. Ordering Provider: JEANINE CARDENAS Report Released Date/Time: Aug 11, 2024 02:09 PM Reporting Lab: [address] [address] Performing Lab: [address] [address] [facility] LIPID PANEL (STL) CHOLESTEROL IN HDL [MASS/VOLUM E] IN SERUM OR PLASMA 45 mg/dL 40 08/11 Specimen Type: PLASMA Comment: No hemolysis noted. Ordering Provider: JEANINE CARDENAS Report Released Date/Time: Aug 11, 2024 02:09 PM Reporting Lab: [address] [address] Performing Lab: [address] [address] [facility] TSH (MA-PB) THYROTROPIN [UNITS/VOLU ME] IN SERUM OR PLASMA 3.281 u[IU]/ mL 0.47 - 5 08/11 Specimen Type: SERUM No comment entered. Ordering Provider: JEANINE CARDENAS Report Released Date/Time: Aug 11, 2024 02:09 PM Reporting Lab: [address] [address] Performing Lab: [address] [address] [facility] VITAMIN D, 25-HYDROX Y 25-HYDROXYV ITAMIN D3 [MASS/VOLUM E] IN SERUM OR PLASMA 31.4 ng/mL 30 - 96 08/11 Specimen Type: SERUM No comment entered. Ordering Provider: JEANINE CARDENAS Report Released Date/Time: Aug 11, 2024 02:09 PM Reporting Lab: [address] [address] Performing Lab: [facility] [address] [facility] [address] [facility] Vital Signs Combined list of inpatient and outpatient Vital Signs from Department of Defense and Veterans Affairs, ranging from 12 months to all on record, depending upon the facility. Vital Sign Value Date Comments Source SYSTOLIC BLOOD PRESSURE 139 12/16/19 12:52:02 [facility] DIASTOLIC BLOOD PRESSURE 74 025 12:52:02 [facility] PULSE OXIMETRY 96 12/15/2024 12:52:02 [facility] WEIGHT 215.8 12/15/2024 12:52:02 [facility] BMI 29 kg/m2 12/15/2024 12:52:02 [facility] PAIN 0 12/15/2024 12:52:02 [facility] HEIGHT 72 12/15/2024 12:52:02 [facility] TEMPERATURE 98 12/15/2024 12:52:02 [facility] PULSE 63 12/15/2024 12:52:02 [facility] RESPIRATION 16 12/15/2024 12:52:02 [facility] SYSTOLIC BLOOD PRESSURE 135 08/11/20 13:38:00 [facility] DIASTOLIC BLOOD PRESSURE 70 024 13:38:00 [facility] PULSE OXIMETRY 97 08/11/2024 13:38:00 [facility] WEIGHT 198 08/11/2024 13:38:00 [facility] BMI 26 kg/m2 08/11/2024 13:38:00 [facility] PAIN 0 08/11/2024 13:38:00 [facility] HEIGHT 73 08/11/2024 13:38:00 [facility] TEMPERATURE 98 08/11/2024 13:38:00 [facility] PULSE 65 08/11/2024 13:38:00 [facility] RESPIRATION 16 08/11/2024 13:38:00 [facility] Encounters Combined list of: 1) Encounters from Department of Veterans Affairs facilities going backup to the last 18 months, not all VA inpatient encounters are included; 2) Encounters from the Department of Defense facilities going backup to 280 months. 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 MARILEEBARBARA 09/20 [place] [facility] Outpatient Encounter [id number] 09/26 [facility] En[facility] [id number] 09/30 [place] [facility] Outpatient Encounter [id number] 10/04 [facility] Outpatient Encounter [id number] 10/20 [facility] Outpatient Encounter [id number] 11/07 [facility] [place] [facility] Outpatient Encounter [id number] 11/12 [place] [facility] [place] [facility] Outpatient Encounter [id number] ALBINO OSBORN 11/13 [place] [facility] [place] [facility] Outpatient Encounter [id number] [place] [facility] Outpatient Encounter [id number] 12/01 [facility] [place] [facility] Outpatient Encounter [id number] CONRADJILL METZ Iglesia 12/01 [place] [facility] Outpatient Encounter [id number] 12/08 [facility] [place] [facility] Outpatient Encounter [id number] 12/08 [place] [facility] Outpatient Encounter [id number] Gabe BOLDEN 12/12 [facility] FEE [id number] Diagnos is: ICD-10- CM F33.40 Major depress rigoberto disorde r, recurre nt, in remissi on, unsp ,12/16 [facility] OFFICE O/P EST LOW 20 MIN [id number] Diagnos is: ICD-10- CM F33.40 Major depress rigoberto disorde r, recurre nt, in remissi on, unsp ESCALERA,12/16 [facility] EMERGENCY [facility]PT VISIT MOD MDM [id number] Diagnos is: ICD-10- CM M79.605 Pain in left leg PRECIOUS DIAL S 12/19 [facility] Outpatient Encounter [id number] PRECIOUS DIAL S 12/19 [facility] GAIT TRAINING THERAPY [id number] Diagnos is: ICD-10- CM M25.562 Pain in left knee RAMY JUDGE 12/19 [facility] [place] [facility] MTMS BY PHARM EST 15 MIN [id number] Diagnos is: ICD-10- CM Z51.81 Encount er for therape utic drug level monitor BARBARA Hand 12/22 [place] [facility] Outpatient Encounter [id number] 12/22 [facility] Outpatient Encounter [id number] 12/23 [facility] OFFICE O/P EST LOW 20 MIN [id number] Diagnos is: ICD-10- CM 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 DAVID TOURE 12/31 [facility] En[facility] [id number] PATTIE MORENO 01[facility]06 [facility] En[facility] [id number] 01/12 [facility] Outpatient Encounter [id number] 01/26 [facility] En[facility] [id number] 01/26 [facility] Outpatient Encounter [id number] 01/27 [facility] Out[facility] Encounter [id number] KAIA SUAREZ 02/03 [place] [facility] [place] [facility] Outpatient Encounter [id number] 02[facility] En[facility] [id number] 02/25 [facility] Outpatient Encounter [id number] 02/26 [facility] Outpatient Encounter [id number] 02/26 [facility] Outpatient Encounter [id number] PARADAGLEN 03/05 [facility] Outpatient Encounter [id number] 05/11 [facility] Outpatient Encounter [id number] 07/01 [facility] Outpatient Encounter [id number] 07/15 [facility] Outpatient Encounter [id number] CAIO GALVAN 07/17 [facility] Outpatient Encounter [id number] 07/20 [facility] MTMS BY PHARM STAFF READINESS OFFICER 15 MIN [id number] Diagnos is: ICD-10- CM Z79.899 Other usp (curren t) drug therapy ELMER CERNA 07/23 [facility] Outpatient Encounter [id number] 07/27 [facility] Outpatient Encounter [id number] ALEXRONALDBelkys Bernal 07/28 [facility] En[facility] [id number] 08/05 [facility] Outpatient Encounter [id number] JEANINE CARDENAS D 08/05 [facility] Outpatient Encounter [id number] JEANINE CARDENAS 08/09 [facility] Outpatient Encounter [id number] SIMIN LEE 08/11 [facility] Outpatient Encounter [id number] JEANINE CARDENAS D 08/12 [facility] Outpatient Encounter [id number] SIMIN LEE 08/21 [facility] Outpatient Encounter [id number] 08/23 [facility] Outpatient Encounter [id number] DAVID TOURE 08/25 [facility] Outpatient Encounter [id number] JEANINE CARDENAS D 08/25 [facility] Outpatient Encounter [id number] MYA FOSTER 10/03 [facility] [place] [facility] Outpatient Encounter [id number] [facility] Encounter [id number] 12/04 [facility] [id number] SIMIN LEE 12/07 [facility] Outpatient Encounter [id number] JEANINE CARDENAS 12/07 [facility] Outpatient Encounter [id number] [facility] [id number] 12/15 [facility] Outpatient Encounter [id number] 12/15 [facility]P EST MOD 30 MIN [id number] Diagnos is: ICD-10- CM E11.9 Type 2 diabete s mellitu s without complic ations LIZA ISSA 12/15 [facility] Outpatient Encounter [id number] 12/15 [facility] RTA DETCJ/MNTR DS STAFF 35294-1.65 [id number] Diagnos is: ICD-10- CM Z13.5 Encount er for screeni ng for eye and ear disorde rs SIMIN LEE 12/15 [facility] IMG RTA DETC/MNTR DS PHY/QHP [id number] [id number] Diagnos is: ICD-10- CM Z13.5 Encount er for screeni ng for eye and ear disorde SIMIN Baker [place] Valdez 12/15 [facility] NQHP OL DIG ASSMT&MGMT 5-10 [id number] [id number] Diagnos is: ICD-10- CM Z51.81 Encount er for therape utic drug level monitor karen MLPAM MORALES M 12/28 [facility] NQHP OL DIG ASSMT&MGMT 5-10 [id number] [id number] Diagnos is: ICD-10- CM I82.409 Acute embolis m and thombos unsp deep vn unsp lower extremi ty PAM LICONA M 12/30 [facility] MTMS BY PHARM EST 15 MIN 15664-2.65 [id number] Diagnos is: ICD-10- CM Z51.81 Encount er for therape utic drug level monitor karen RETA DIANE 01/07 [facility] Social History Combined list of available smoking, tobacco, and other social history from [facility] Defense and [facility] facilities. Social History Type Response Date Comment Source Tobacco smoking status DEIS [facility]CO FORMER USER 07/23/2024 [facility] History of tobacco use VA-TOBACCO QUIT 15 YRS OR MORE 07/23/2024 [facility] History of tobacco use VA-TOBACCO QUIT 15 YRS OR MORE 04/09/2023 [facility] History of tobacco use VA-TOBACCO NEVER USED 01/10/2022 [facility] History of tobacco use VA-TOBACCO FORMER USER 09/04/2021 [facility] History of tobacco use VA-TOBACCO FORMER USER 07/26/2020 [facility] History of tobacco use VA-TOBACCO QUIT 15 YRS OR MORE 04/25/2020 [facility] History of tobacco use VA-TOBACCO NEVER USED 04/08/2019 [facility] History of tobacco use QUIT TOBACCO >7 YEARS AGO 10/17/2016 [facility] History of tobacco use V7-NO TOBACCO USE > 7 YEARS 03/21/2016 38 YEARS [facility] History of tobacco use NON-TOBACCO USER 04/05/2015 [facility] History of tobacco use V7-NO TOBACCO USE > 7 YEARS 04/05/2015 [facility] History of tobacco use V7-LIFETIME TOBACCO NON USER 07/19/2014 [facility] History of tobacco use V7-LIFETIME TOBACCO NON USER 05/30/2013 [facility] History of tobacco use V7-NO TOBACCO USE > 7 YEARS 06/03/2012 [facility] History of tobacco use V7-LIFETIME TOBACCO NON USER 05/09/2011 [facility] History of tobacco use V7-NO TOBACCO USE > 7 YEARS 06/03/2009 [facility] History of tobacco use V7-TOBACCO QUIT DATE 03/09/2008 [facility] History of tobacco use V7-HX TOBACCO USER >12 MONTHS <7 YEARS 03/09/2008 [facility] History of tobacco use V7-LIFETIME TOBACCO NON USER 01/31/2007 [facility] History of tobacco use V7-LIFETIME NON/TOBACCO USER 01/01/2006 [facility] History of tobacco use LIFETIME NON-TOBACCO USER 12/10/2002 [facility] History of tobacco use CURRENT NON-TOBACCO USER-HX OF USE 11/13/2001 [facility] History of tobacco use CURRENT NON-TOBACCO USER-RECENTLY QUIT 03/18/2001 stopped long ago [facility] History of tobacco use PREVIOUS SMOKER 12/03/2000 [facility] Advance Directives List of completed, amended, or rescinded Advance Directives on record at Department of [facility] Affairs facilities. An actual copy of the Directive is not included. Date Advance Directive Provider Source 06/02/1997 ADVANCE DIRECTIVE [facility]
--- OUTSIDE RECORDS SUMMARY | 2025-02-14 07:09 | XMS_ITS | Encounter Summary ---
Author Organization [facility] Address 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
--- OUTSIDE RECORDS SUMMARY | 2025-02-14 07:09 | XMS_ITS | Clinical Summary ---
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 Gender Identity Not on file Sexual Orientation [...] history exists Medical Devices Implanted Type Area Flour Blender Helper Device Identifier Shelf Expiration Date Model / Serial / Lot Knee Description:bilateral Hardware Description:head Procedures Procedure Name Priority Date/Time Associated Diagnosis Comments HEMOGLOBIN A1C Routine 12/07/2023 11:36 PM CDT MICROALBUMIN/CREATIN INE RATIO, RANDOM UR Routine 09/29/2020 1:44 PM WEIGHT AND BALANCE CONTROL AGENT 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 AVG GLUCOSE, A1C 171 mg/dL 12/08/2023 10:41 AM CDT [facility] Blood Venipuncture / Unknown 12/07/2023 11:36 PM CDT 12/07/2023 11:40 PM CDT Narrative [facility] - 12/08/2023 10:41 AM CDT HGB A1C INTERPRETATION NORMAL: <5.7% PRE-DIABETES: 5.7 - 6.4% DIABETES: 6.5% OR GREATER us Valdez Castro MD CHEMISTRY ORDERABLES Final Resul t [facility]# [id number] [address] [place] [address] * (ABNORMAL) MICROALBUMIN/CREATININE RATIO, RANDOM UR (09/29/2020 1:44 PM WEIGHT AND BALANCE CONTROL AGENT) MICROALBUMIN, URINE 2.2 No Reference Range mg/dL 09/29/2020 2:[address] [facility] [place] [facility] CREATININE, URINE 38.5(L) 40.0 - 278.0 mg/dL 09/29/2020 2:[address] [facility] [facility] Comment:Reference Range vari es with fluid intake and diet. MICROALBUMIN/ CREAT RATIO, UR 57.1(H) <17.0 mg/g 09/29/2020 2:48 PM [facility] [place] [facility] Urine URINE SPECIMEN OBTAINED BY CLEAN CATCH PROCEDURE / Unknown Collection / Unknown 09/29/2020 1:44 PM WEIGHT AND BALANCE CONTROL AGENT 09/29/2020 1:59 PM WEIGHT AND BALANCE CONTROL AGENT [facility] [facility] - 09/29/2020 2:48 PM WEIGHT AND BALANCE CONTROL AGENT Condition Microalbumin/Creat ratio Normal Males <17 Normal Females <25 Microalbuminuria Males 17-299 Microalbuminuria Females 25-299 Overt proteinuria >=300 Rafy Ward MD URINE ORDERABLES Final Result [facility] [place] [facility]# [id number] [address] [facility] [address] * LIPID PANEL (09/29/2020 1:44 PM WEIGHT AND BALANCE CONTROL AGENT) CHOLESTEROL 93 <200 mg/dL 09/29/2020 2:[address] [facility] [facility] TRIGLYCERIDE 72 <150 mg/dL 09/29/2020 2:[address] [facility] [place] [facility] HDL 53 40 - 59 mg/dL 09/29/2020 2:[address] [facility] [place] [facility] LDL CALCULATED 26 <100 mg/dL 09/29/2020 2:[address] [facility] [place] [facility] NON-HDL CHOLESTEROL 40 <130 mg/dL 09/29/2020 2:[address] [facility] [place] [facility] Blood Venipuncture / Unknown 09/29/2020 1:44 PM WEIGHT AND BALANCE CONTROL AGENT 09/29/2020 1:59 PM WEIGHT AND BALANCE CONTROL AGENT Narrative [facility] [place] [facility] - 09/29/2020 2:38 PM WEIGHT AND BALANCE CONTROL AGENT TOTAL CHOLESTEROL mg/dL Desirable <200 Borderline high [...] Ward MD CHEMISTRY ORDERABLES Final Re sult [facility] [place] [facility] CLIA# [id number] [address] [place] [address] from Last 3 Months or Most Recently Relevant to Health Maintenance Insurance RX [employer] RX Member Subscriber Plan / Payer (Ef fective 2023-Present) Name:Cosme Javier Relation to Subscriber:Self Name:Cosme Javier Payer ID:Not on file Group ID:[id number] Type:RX Medicare Part D Address: [address] [place] [place] Advance Directives For more information, please contact: [phone] * NO CPR (In Event of Cardiopulmonary [...] 9:43 AM 07/15/2017 5:31 PM Care Teams Vice Admiral Relationship Specialty Start Date End Date Dear, Campbell Bullard DO [address] [place] [phone] PCP - General Family Practice 07/09/22
--- OUTSIDE RECORDS SUMMARY | 2025-02-14 07:09 | XMS_ITS | Encounter Summary ---
Author Organization [facility] Address 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
--- OUTSIDE RECORDS SUMMARY | 2025-02-14 07:09 | XMS_ITS | Encounter Summary ---
Author Organization [facility] Address 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
--- OUTSIDE RECORDS SUMMARY | 2025-02-14 07:09 | XMS_ITS | Encounter Summary ---
Author Organization [facility] Address [address] [place] [address] Care Team Providers Care Resident Engineer Name Role Phone Abraham Cohn DO Primary Care Provider + Unknown, Provider Primary Care Provider Unavaila ble Encounter Details Date Type Department Care Team (Late st Contact Info) Description 01/05/2021 [facility] Outpatient Visit [facility] - Radiology [address] [address] [place] [address] Document, Scanned Social History Tobacco Use Types Packs/Day Years Used Date Smoking Tobacco: Former Smokeless Tobacco: Never Alcohol Use Standard Drinks/Week Comments No 0 (1 standard drink = 0.6 oz pur e alcohol) Sex and Gender Information Value Date Recorded Sex Assigned at Not on file 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
--- OUTSIDE RECORDS SUMMARY | 2025-02-14 07:09 | XMS_ITS | Encounter Summary ---
Author Organization [facility] Address 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
--- OUTSIDE RECORDS SUMMARY | 2025-02-14 07:09 | XMS_ITS | Encounter Summary ---
Author Organization [facility] Address 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
--- OUTSIDE RECORDS SUMMARY | 2025-02-14 07:09 | XMS_ITS | Encounter Summary ---
Author Organization [facility] Address 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
--- OUTSIDE RECORDS SUMMARY | 2025-02-14 07:09 | XMS_ITS | Encounter Summary ---
Author Organization [facility] Address [address] [place] [address] Care Team Providers Care Sewer Connector Name Role Phone DearCampbell DO Primary Care Provider + Encounter Details Date Type Department Care Team (Late st Contact Info) Description 04/07/2001 Outpatient Historical 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
--- NOTE | 2025-02-14 07:18 | ED.GENADULT ---
HPI - General Adult General Chief complaint: Urogenital-Male Stated complaint: catheter blockage its turned black Time Seen by Provider: 02/14/25 06:56 History of Present Illness HPI narrative: 79-year-old male present to the emergency department for evaluation for a Omer catheter pain. Patient has had indwelling Omer catheter secondary to urinary retention. Omer catheter was last changed approximately 11 days ago. Patient began noticing increased pain at the penis and bladder yesterday. Also reports he did have some medication changes and has noticed a darkening of the Omer bag. Patient is unsure what medications were changed. Related Data Home Medications ?Medication ?Instructions ?Recorded ?Confirmed ?Last Taken ?Type apixaban 5 mg tablet (Eliquis) 5 mg PO BID 01/13/24 07/04/24 05/19/24 History aspirin 81 mg tablet,delayed 81 mg PO DAILY 01/13/24 07/04/24 05/19/24 History release (Adult Low Dose Aspirin) atorvastatin 80 mg tablet 40 mg PO DAILY 01/13/24 07/04/24 03/29/24 09:00 History dulaglutide 1.5 mg/0.5 mL 1.5 mg subcut WEEKLY 01/13/24 07/04/24 Unknown History subcutaneous pen injector (Trulicity) mirabegron 50 mg tablet,extended 50 mg PO DAILY 01/13/24 07/04/24 03/29/24 09:00 History release 24 hr (Myrbetriq) omeprazole 20 mg capsule,delayed 20 mg PO BID 01/13/24 07/04/24 03/29/24 17:00 History release tamsulosin 0.4 mg capsule 0.4 mg PO DAILY 01/13/24 07/04/24 03/29/24 09:00 History gabapentin 300 mg capsule 300 mg PO TID 01/29/24 07/05/24 05/21/24 05:00 History lisinopril 5 mg tablet 2.5 mg PO DAILY 04/08/24 07/04/24 Unknown History Allergies Allergy/AdvReac Type Severity Reaction Status Date / Time iodine Allergy Rash Verified 01/15/25 04:22 Penicillins Allergy Swelling Verified 01/15/25 04:22 amitriptyline AdvReac BECOMES Verified 01/15/25 04:22 VIOLENT/COMBATIVE codeine AdvReac avoids Verified 01/15/25 04:22 -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 AdvReac Nausea and Verified 01/15/25 04:22 Vomiting Review of Systems Review of Systems: All systems reviewed & are unremarkable except as noted in HPI and below PMFSH Past Medical History Medical History CAD (coronary artery disease) CVA (cerebral vascular accident) 1982, 1990 mild left weakness Diabetic neuropathy History of diabetes mellitus History of heart attack History of hypertension TIA (transient ischemic attack) x8 VTE (venous thromboembolism) Surgical History Surgical History History of transurethral resection of bladder tumor (TURBT) Family History Family History Father Diabetes mellitus Sibling Diabetes mellitus Mother Congestive heart disease Social History Social History Smoking packs per day: 1 Smoking cigarettes per day: 20.0 Years smoked: 40 Smoking pack-years: 40.00 Smoking status: Former smoker Tobacco type: cigarettes Smoking end date: 03/23/95 Alcohol intake: former Alcohol use details: QUIT HEAVY DRINKER PRIOR Substance use: former Substance use type: does not use 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 HEAD: normocephalic, atraumatic. EYES: PERRLA/EOMI, conjunctivae clear. NOSE: Normal no drainage EARS:TMS clear with good light reflex. THROAT: Pharynx clear, no exudate. NECK: Supple. No adenopathy, no masses. RESPIRATORY: Airway patent, respirations nonlabored. Clear to auscultation bilaterally, no rales, rhonchi, wheezing. CARDIOVASCULAR: Regular rate and rhythm without murmurs rubs or gallops. ABDOMINAL: Soft, nontender, nondistended, normal bowel sounds MUSCULOSKELETAL: Moves all extremities. Strength/ROM intact, No edema, No calf tenderness. NEURO: Alert. Cranial nerves II through XII intact. Good gait. Good coordination SKIN: Warm, dry. Normal Color genital exam: No abnormality at the pain is with no bleeding or irritation from the Omer catheter noted. Course Vital Signs Vital signs: Vital Signs Pulse Rate 70 02/14/25 06:43 Respiratory Rate 18 02/14/25 06:43 Blood Pressure 152/77 H 02/14/25 06:43 Pulse Oximetry 100 02/14/25 06:43 Temperature 97.8 F 02/14/25 08:31 Pulse Rate 76 02/14/25 08:31 Respiratory Rate 16 02/14/25 08:31 Blood Pressure 154/72 H 02/14/25 08:31 Pulse Oximetry 97 02/14/25 08:31 Medical Decision Making [facility] Narrative Medical decision making narrative: 79-year-old male present to the emergency department for evaluation pain in his penis secondary to the Omer catheter. Patient has had an indwelling Omer catheter for an extended period of time but typically does not have pain with this. Patient urine was positive for blood positive for leukocyte esterase high red blood cells high white blood cells and white blood cells in clumps. Urine culture was ordered and patient was started on antibiotics for home. Differential Diagnosis Differential Diagnosis: Abnormal UA, urinary tract infection, Omer catheter complication, urinary bacterial colonization Vital Signs Vital Signs: Vital Signs Pulse Rate 70 02/14/25 06:43 Respiratory Rate 18 02/14/25 06:43 Blood Pressure 152/77 H 02/14/25 06:43 Pulse Oximetry 100 02/14/25 06:43 Temperature 97.8 F 02/14/25 08:31 Pulse Rate 76 02/14/25 08:31 Respiratory Rate 16 02/14/25 08:31 Blood Pressure 154/72 H 02/14/25 08:31 Pulse Oximetry 97 02/14/25 08:31 Lab Data Lab results reviewed: Yes I reviewed the patient's lab results. Labs: Lab Results 02/14/25 Range/Units 07:39 Urine Color Red H (Yellow) Urine Appearance Cloudy H (Clear) Urine pH 6.5 (5.0-9.0) Ur Specific [place] 1.015 (1.001-1.035) Urine Protein 2+ H (Negative) mg/dL Urine Glucose (UA) Negative (Negative) mg/dL Urine Ketones Negative (Negative) mg/dL Ur Blood (Man) 3+ H (Negative) Urine Nitrate Negative (Negative) Urine Bilirubin Negative (Negative) Urine Urobilinogen 0.2 (<2.0) mg/dL Leukocyte Esterase Rfl 2+ H (Negative) NOEL/UL Urine RBC >100 H (0-2) /hpf Urine WBC 16-20 H (0-3) /hpf Urine WBC Clumps Present H (None) /hpf Urine Bacteria 3+ (None) /hpf Discharge Plan Discharge Clinical Impression: Abnormal urinalysis, Complication of Omer catheter Patient Disposition: Home Condition: Stable Instructions: Antibiotic Form, Urinary Tract Infection in Men (ED), Omer Catheter Placement and Care (ED) Additional Instructions: Omer catheter care as directed. Antibiotic as directed until completed. Have close follow-up with your primary care physician. Have close follow-up with Urology. Patient Language: Botswanan Prescriptions: New cephalexin 500 mg capsule 500 mg PO Q8H 7 Days Qty: 21 0RF No Action atorvastatin 80 mg tablet 40 mg PO DAILY Eliquis 5 mg Tablet 5 mg PO BID tamsulosin 0.4 mg capsule 0.4 mg PO DAILY omeprazole 20 mg Capsule,Delayed Release(Dr/Ec) 20 mg PO BID mirabegron [Myrbetriq] 50 mg tablet extended release 24 hr 50 mg PO DAILY aspirin [Adult Low Dose Aspirin] 81 mg Tablet,Delayed Release (Dr/Ec) 81 mg PO DAILY Trulicity 1.5 mg/0.5 mL pen injector 1.5 mg SUBCUT WEEKLY Patient Comments: TAKES ON saturday Rx Instructions: saturday gabapentin 300 mg capsule 300 mg PO TID sulfamethoxazole-trimethoprim [Bactrim DS] 800-160 mg tablet 1 tablet PO Q12H 7 Days Qty: 14 0RF cephalexin 500 mg capsule 500 mg PO Q12H 7 Days Qty: 14 0RF lisinopril 5 mg Tablet 2.5 mg PO DAILY cefdinir 300 mg Capsule 300 mg PO BID 3 Days Qty: 6 0RF ferrous sulfate 325 mg (65 mg iron) tablet 325 mg PO DAILY Qty: 90 0RF Follow-up/Referrals: Rosa,MD [place] [Primary Care Provider] -
[2025-02-14 07:42] VITALS: BP 151/75; PULSE 78; RESP 16; TEMP 36.6; O2SAT 97
[2025-02-14 08:20] LABS: Appearance Urine Cloudy (Clear); Color Urine Red (Yellow); RBC Urine >100 /hpf (0-2); WBC Clumps Urine Present /hpf; WBC Urine 16-20 /hpf (0-3)
[2025-02-14 08:27] LABS: Bacteria Urine 3+ /hpf; Glucose Urine UA Negative (Negative); Ketones Urine Negative (Negative); Protein Urine 2+ mg/dL (Negative); Specific Grav Ur 1.015 (1.001-1.035)
[2025-02-14 08:28] LABS: Add Urine Microscopic? YES; Bilirubin Urine Negative (Negative); Blood Urine 3+ (Negative); Leukocyte Esterase Ur 2+ LEU/UL (Negative); Nitrate Urine Negative (Negative); Urobilinogen Urine 0.2 mg/dL (<2.0)
[2025-02-14 08:31] VITALS: BP 154/72; PULSE 76; RESP 16; TEMP 36.6; O2SAT 97
[2025-02-14 08:55] LABS: pH Urine 6.5 (5.0-9.0)
== END 2025-02-14 08:58 | disposition home or self-care (01) ==
PROVIDERS: Emergency Provider Emergency Medicine; PCP Internal Medicine
DX: R82.998 Other abnormal findings in urine (principal); T83.84XA Pain due to genitourinary prosthetic devices, implants and grafts, initial encounter; Y73.1 Therapeutic (nonsurgical) and rehabilitative gastroenterology and urology devices associated with adverse incidents; I25.10 Atherosclerotic heart disease of native coronary artery without angina pectoris; I69.954 Hemiplegia and hemiparesis following unspecified cerebrovascular disease affecting left non-dominant side; E11.40 Type 2 diabetes mellitus with diabetic neuropathy, unspecified; I25.2 Old myocardial infarction; Z79.01 Long term (current) use of anticoagulants
CPT/HCPCS: 51702; 81001; 87077; 87086; 87186; 99283

== ENCOUNTER 2025-03-02 13:26 | Inpatient (IN) | payer MEDICARE, MEDICAID, OTHER, SELFPAY ==
[2025-03-02] VITALS (9 sets, daily range): BP systolic 113–151; BP diastolic 60–77; PULSE 69–110; RESP 16–22; TEMP 36.2–36.4; O2SAT 96–100; BMI 29.5
--- NOTE | ~2025-03-02 | XR_ITS ---
XR elbow LT 2V 03/02/2025 15:42 Indication: Left elbow pain after fall Procedure: 2 views left elbow Comparison: No prior studies for comparison. Findings: There is polyarticular osteoarthritis. No fracture, subluxation or dislocation. No signific ant joint effusion. No foreign bodies. Impression: 1: No acute fracture. Reviewed, dictated and finalized at location B. Impression: 1: No acute fracture.
--- NOTE | ~2025-03-02 | CT_ITS ---
EXAMINATION: CT cervical spine wo con DATE: 03/02/2025 13:46 INDICATION: Neck pain post fall with loss of consciousness TECHNIQUE: Computed tomography (CT) of the cervical spine was performed without intravenous contrast. Automated exposure control and iterative reconstruction technique were employed. The dose-length pro duct was 417.72 mGy-cm. COMPARISON: 07/04/2024 FINDINGS: Straightening of the normal cervical lordosis. Vertebral body heights are normal. No acute fracture. Moderate osteoarthritis at the atlantoaxial articulation. Severe disc height loss with degenerative e ndplate changes and severe bilateral uncovertebral osteoarthritis at C5-C6 and C6-C7. Moderate disc h eight loss at C2-C3, C4-C5 and T1-T2 and mild disc height loss at C3-C4, C7-T1 and T2-T3. Disc bulge at C3-C4 and posterior disc osteophyte complexes at C5-C6 and C6-C7 contributing to multilevel mild c entral canal stenosis most prominent at C5-C6. There is severe facet osteoarthritis on the right at C 7-T1 and on the left at C2-C3 through C4-C5. Mild to moderate osteoarthritis at the remaining cervica l facet joints. There is moderate neural foraminal stenosis on the left at C3-C4 and C4-C5 and on the right at C3-C4 and C5-C6. Mild neural from stenosis at many of the remaining cervical neural foramin a. Atherosclerotic calcifications at the bilateral carotid bulbs. Cervical soft tissues are unremarka ble. Mild biapical pleural-parenchymal scarring. Cardiac pacemaker leads extend through the visualize d portions of the left subclavian vein. IMPRESSION: 1. Severe lower cervical predominant spondylosis. No acute osseous abnormality.. Reviewed, dictated and finalized at location A. IMPRESSION: 1. Severe lower cervical predominant spondylosis. No acute osseous abnormality. .
--- NOTE | ~2025-03-02 | XR_ITS ---
Left Shoulder Technique: AP and scapular Y views were obtained. Clinical History: Pain Findings: No fracture or dislocation is seen. Osseous alignment is anatomic. The glenohumeral joint i s intact. There is advanced AC joint degenerative change. Soft tissues are unremarkable. Impression: Advanced AC joint degenerative change. Reviewed, dictated and finalized at location . Impression: Advanced AC joint degenerative change.
--- NOTE | ~2025-03-02 | XR_ITS ---
Portable chest x-ray Comparison: 07/04/2024 Clinical History: Syncope Findings: Chronic blunting of the right costophrenic angle present. Left lung clear. Cardiomediasti nal silhouette is stable, now with pacemaker device. Bones and soft tissues are unremarkable. Impression: Stable apparent chronic blunting of right costophrenic angle versus chronic small right pleural effus ion. No acute reality. Reviewed, dictated and finalized at location M. Impression: Stable apparent chronic blunting of right costophrenic angle versus chronic sma ll right pleural effusion. No acute reality.
--- NOTE | ~2025-03-02 | CT_ITS ---
CT head without contrast Indication: Status post fall COMPARISON: 07/04/2024 Technique: Serial scans were obtained through the brain without the administration of contrast. Dose reduction technique was used on this scan by utilizing automated exposure control and iterative recon struction technique. The dose-length product (DLP) was 681.00 mGy-cm. Findings: There is no evidence of intracranial hemorrhage, mass lesion, or acute infarct. The ventri cles and subarachnoid spaces are dilated, consistent with moderate atrophy. Low attenuation regions are seen within the periventricular white matter bilaterally, likely representing changes from chroni c microvascular ischemic disease. There is no evidence of edema, mass effect or midline shift. The visualized paranasal sinuses and mastoid air cells are clear. Impression: No intracranial hemorrhage, mass, or acute infarct. Atrophy and chronic white matter changes, as above. Reviewed, dictated and finalized at location . Impression: No intracranial hemorrhage, mass, or acute infarct. Atrophy and chronic white matter changes, as above.
--- NOTE | ~2025-03-02 | CT_ITS ---
CT lumbar spine wo con Ordering provider: Refugio Hong MD History: 79 years Male with . left L5 radiculopathy and chronic lower back pain . Comparison: None. Technique: CT lumbar spine without contrast. Automated exposure control and iterative reconstruction technique were employed. The dose-length product was 1273.69 mGy-cm. FINDINGS: VERTEBRAE: Normal height and alignment. No subluxation or visible acute fracture. Degenerative change s of the spine. Sclerotic lesion in the left iliac bone. Follow-up advised. Hepatomegaly DISC SPACES: Narrowing of the disc L3-L4, L4-L5 and L5-S1. Bilateral multilevel facet joint disease. Bilateral sacroiliacs. T12-L1: No stenosis. L1-L2: No stenosis. Mild diffuse disc bulge. L2-L3: No stenosis. Osteophytes with narrowing of the foramina. Possible root compression bilaterall y. L3-L4: Moderate spinal canal stenosis secondary to broad based disc bulge, facet arthropathy, and lig amentum flavum hypertrophy. Bilateral narrowing with root compression bilaterally. L4-L5: Moderate spinal canal stenosis secondary to broad based disc bulge, facet arthropathy, and li gamentum flavum hypertrophy. Bilateral narrowing of the foramina with possible root compression. L5-S1: No stenosis. Osteophytes with mild diffuse disc bulge. PARASPINOUS SOFT TISSUES: Mild atheromatous disease of the abdominal aorta. Calcifications in the left kidney lower pole suggestive of stones. Slight fullness of the right renal pelvis with slight dilatation of the upper ureter is seen. IMPRESSION: Multilevel degenerative disc disease with multilevel spinal canal stenosis and neural impingement. MR I is better for evaluation. Highly suggestive left kidney stones. Minimal fullness of the renal pelvis bilaterally more on the right side. Further evaluation advised. Reviewed, dictated and finalized at location A. IMPRESSION: Multilevel degenerative disc disease with multilevel spinal canal stenosis and neural impingement. MRI is better for evaluation. Highly suggestive left kidney stones. Minimal fullness of the renal pelvis bilaterally more on the right side. Furthe r evaluation advised.
--- NOTE | 2025-03-02 13:31 | ED_ITS ---
HPI - Syncope General Chief Complaint: Syncope Stated Complaint: syncope Time Seen by Provider: 03/02/25 13:27 History of Present Illness HPI narrative: Pt presents after having syncopal episode. Pt was in junk yard in [place] looking for parts and felt lightheaded and sweaty and then passed out. Pt denies CP or SOB before or after. Pt has acosta in place with leg bag. Pt says he has a mild JOSUE and some neck pain after syncope and fall. Related Data Home Medications ?Medication ?Instructions ?Recorded ?Confirmed ?Last Taken ?Type apixaban 5 mg tablet (Eliquis) 5 mg PO BID 01/13/24 07/04/24 05/19/24 History aspirin 81 mg tablet,delayed 81 mg PO DAILY 01/13/24 07/04/24 05/19/24 History release (Adult Low Dose Aspirin) atorvastatin 80 mg tablet 40 mg PO DAILY 01/13/24 07/04/24 03/29/24 09:00 History dulaglutide 1.5 mg/0.5 mL 1.5 mg subcut WEEKLY 01/13/24 07/04/24 Unknown History subcutaneous pen injector (Trulicity) mirabegron 50 mg tablet,extended 50 mg PO DAILY 01/13/24 07/04/24 03/29/24 09:00 History release 24 hr (Myrbetriq) omeprazole 20 mg capsule,delayed 20 mg PO BID 01/13/24 07/04/24 03/29/24 17:00 History release tamsulosin 0.4 mg capsule 0.4 mg PO DAILY 01/13/24 07/04/24 03/29/24 09:00 History gabapentin 300 mg capsule 300 mg PO TID 01/29/24 07/05/24 05/21/24 05:00 History lisinopril 5 mg tablet 2.5 mg PO DAILY 04/08/24 07/04/24 Unknown History Allergies Allergy/AdvReac Type Severity Reaction Status Date / Time iodine Allergy Rash Verified 01/15/25 04:22 Penicillins Allergy Swelling Verified 01/15/25 04:22 amitriptyline AdvReac BECOMES Verified 01/15/25 04:22 VIOLENT/COMBATIVE codeine AdvReac avoids Verified 01/15/25 04:22 -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 AdvReac Nausea and Verified 01/15/25 04:22 Vomiting Review of Systems 2 Review of Systems: All systems reviewed & are unremarkable except as noted in HPI and below PMFSH Past Medical History Medical History CAD (coronary artery disease) CVA (cerebral vascular accident) 1982, 1990 mild left weakness Diabetic neuropathy History of diabetes mellitus History of heart attack History of hypertension TIA (transient ischemic attack) x8 VTE (venous thromboembolism) Surgical History Surgical History History of transurethral resection of bladder tumor (TURBT) Family History Family History Father Diabetes mellitus Sibling Diabetes mellitus Mother Congestive heart disease Social History Social History Smoking packs per day: 1 Smoking cigarettes per day: 20.0 Years smoked: 40 Smoking pack-years: 40.00 Smoking status: Former smoker Tobacco type: cigarettes Smoking end date: 03/23/95 Alcohol intake: former Alcohol use details: QUIT HEAVY DRINKER PRIOR Substance use: former Substance use type: does not use 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D Difficulty w/ Childcare or Family Care: No Living arrangements: with family Additional living arrangements comments: SON Spiritual care concerns: No Exam 2 Const: General: healthy appearing and no acute distress Nutritional Appearance: well nourished Orientation/consciousness: patient oriented x3 Limitations: no limitations HENMT: Head: normal to inspection Eyes: Conjunctivae: conjunctivae normal Pupils: Equal, round and reactive pupils present EOM: EOMs intact bilaterally Neck: Neck: normal visual inspection Other: some mild posterior midline pain Resp: Effort & Inspection: normal respiratory effort Auscultation: clear to auscultation bilaterally Cardio: Rate: regular rate Rhythm: regular rhythm GI: Auscultation: normal bowel sounds Back/Spine/Pelvis: Back: no CVA tenderness Skin: General skin exam: normal color Wounds: no wounds Neuro: General: patient oriented x3, moves all extremities, no meningeal signs and no focal motor deficits Cranial nerves: Yes Nystagmus not present S peech: normal speech Extrem: General: normal to inspection and no clubbing, cyanosis or edema Psych: Mental Status: mental status grossly normal Affect: normal affect Attitude: cooperative Course Vital Signs Vital signs: Vital Signs Temperature 97.6 F 03/02/25 13:28 Pulse Rate 99 03/02/25 13:28 Respiratory Rate 16 03/02/25 13:28 Blood Pressure 140/77 03/02/25 13:28 Pulse Oximetry 96 03/02/25 13:28 Oxygen Delivery Room Air 03/02/25 13:28 Temperature 97.6 F 03/02/25 13:28 Pulse Rate 89 03/02/25 15:00 Respiratory Rate 18 03/02/25 15:00 Blood Pressure 133/71 03/02/25 15:00 Pulse Oximetry 96 03/02/25 15:00 Oxygen Delivery Room Air 03/02/25 13:28 MDM - Syncope MDM Narrative Medical decision making narrative: Pt presents after having syncopal episode today. Pt has indwelling acosta with leg bag. Pt denies CP. will give some IV fluids and check orthostatics and get CT head and neck since has some neck pain and JOSUE and fell. could be dehydrated or have infection or could be cardiac in nature given pacer history. will get ekg and labs and ua. ua neg, ekg and labs not acute. some change with orthostatics. would like to observe for arrythmia. discussed with Raghavendra Lew and agrees to observe. Lab Data 03/02/25 13:36 03/02/25 13:36 Labs: Lab Results 03/02/25 03/02/25 Range/Units 13:36 14:23 WBC 8.6 (4.5-10.0) K/mm3 RBC 3.99 L (4.6-6.20) M/mm3 Hgb 11.9 L (14.0-18.0) g/dL Hct 37.0 L (42.0-52.0) % MCV 92.7 (80-100) fl MCH 29.8 (26-34) pg MCHC 32.2 (32-36) g/dl RDW 13.9 (11.5-14.5) % Plt Count 192 (150-375) k/mm3 MPV 9.1 (7.4-10.4) fl Immature Gran % (Auto) 0.6 H (0-0.5) % Neut % (Auto) 78.5 H (45.5-73.1) % Lymph % (Auto) 13.5 L (18.3-44.2) % [place] % (Auto) 6.5 (2.6-8.5) % Eos % (Auto) 0.5 (0-4.4) % Baso % (Auto) 0.4 (0.2-1.2) % Lymph # (Auto) 1.16 (0.9-3.2) K/mm3 [place] # (Auto) 0.6 (0.1-0.6) K/mm3 Eos # (Auto) 0.0 (0-0.3) K/mm3 Baso # (Auto) 0.0 (0.0-0.1) K/mm3 Abs Immat Gran (auto) 0.05 H (0.00-0.031) K/mm3 Absolute Neuts (auto) 6.7 (1.3-6.7) K/mm3 Absolute Nucleated RBC 0.000 (0.0-0.012) K/mm3 Nucleated RBC % 0.0 (0.0-0.2) % PT 16.0 H (11.1-14.7) Seconds INR 1.3 APTT 33.3 (22.3-36.8) Seconds Sodium 135 L (137-145) mmol/L Potassium 4.3 (3.4-5.0) mmol/L Chloride 103 (98-107) mmol/L Carbon Dioxide 23 (22-30) mmol/L Anion Gap 9 (4-12) mmol/L BUN 25 H (9-20) mg/dL Creatinine 1.02 (0.7-1.3) mg/dL Estim Creat Clear Calc 64 ml/min Estimated GFR > 60 (59 - ) Glucose 184 H (65-110) mg/dL Calcium 9.3 (8.4-10.2) mg/dL Magnesium 1.6 (1.6-2.3) mg/dL Total Bilirubin 0.7 (0.2-1.3) mg/dL AST 30 (17-59) U/L ALT 25 (6-50) U/L Alkaline Phosphatase 122 (38-126) U/L Troponin I 0.016 (0.000-0.034) ng/mL Total Protein 7.3 (6.3-8.2) g/dL Albumin 4.2 (3.5-5.1) g/dL Urine Color Yellow (Yellow) Urine Appearance Cloudy H (Clear) Urine pH 6.5 (5.0-9.0) Ur Specific [place] 1.017 (1.001-1.035) Urine Protein 2+ H (Negative) mg/dL Urine Glucose (UA) Negative (Negative) mg/dL Urine Ketones Negative (Negative) mg/dL Ur Blood (Man) 3+ H (Negative) Urine Nitrate Positive H (Negative) Urine Bilirubin Negative (Negative) Urine Urobilinogen 1.0 (<2.0) mg/dL Add Ur Microanalysis Reviewed Leukocyte Esterase Rfl 3+ H (Negative) NOEL/UL Urine RBC >100 H (0-2) /hpf Urine WBC >100 H (0-3) /hpf Ur Squamous Epith Cells None seen (Few) /hpf Urine Bacteria 4+ H /hpf Urine Casts 6-10 Discharge Plan Discharge Clinical Impression: Syncope Patient Disposition: Still a Patient Condition: Stable
--- NOTE | 2025-03-02 13:31 | ECG_ITS ---
Test Date: 2025-03-02 13:33:08 Measurements Intervals [place] Rate: 96 P: 2 RI: 252 QRS: 74 QRSD: 161 T: -77 QT: 359 QTc: 455 Interpretive Statements ATRIAL SENSE- ELECTRONIC VENTRICULAR PACEMAKER BASELINE ARTIFACT- I, II, III, AVR, AVL, AVF NO FURTHER INTERPRETATION IS POSSIBLE ATYPICAL ECG Compared to ECG 07/04/2024 16:17:45 ELECTRONIC VENTRICULAR PACEMAKER NOW PRESENT Electronically Signed On 03-02-2025 13:48:38 CDT by Kenny Lacey D.O.
[2025-03-02 13:47] LABS: Basophils Percent Auto 0.4 % (0.2-1.2); Eosinophils Percent Auto 0.5 % (0-4.4); Hemoglobin 11.9 g/dL (14.0-18.0); Immature Granulocyte Absolute 0.05 K/mm3 (0.00-0.031); Immature Granulocyte Percent A 0.6 % (0-0.5); Lymphocytes Absolute Auto 1.16 K/mm3 (0.9-3.2); Lymphocytes Percent Auto 13.5 % (18.3-44.2); Mean Corpuscular HGB Conc 32.2 g/dl (32-36); Mean Corpuscular Hemoglobin 29.8 pg (26-34); Mean Corpuscular Volume 92.7 fl (80-100); Mean Platelet Volume 9.1 fl (7.4-10.4); Monocytes Absolute Auto 0.6 K/mm3 (0.1-0.6); Monocytes Percent Auto 6.5 % (2.6-8.5); Neutrophils Absolute Auto 6.7 K/mm3 (1.3-6.7); Neutrophils Percent Auto 78.5 % (45.5-73.1); Platelet Count Result 192 k/mm3 (150-375); Red Blood Count 3.99 M/mm3 (4.6-6.20); Red Cell Distribution Width 13.9 % (11.5-14.5); White Blood Count 8.6 K/mm3 (4.5-10.0)
[2025-03-02] MEDS: SODIUM CHLORIDE 0.9% IV 1,000 ML 999 ML IV CONT (13:48)
[2025-03-02 13:59] LABS: INR 1.3
[2025-03-02 14:00] LABS: Partial Thromboplastin Time 33.3 Seconds (22.3-36.8)
[2025-03-02 14:01] LABS: Alanine Aminotransferase 25 U/L (6-50); Albumin Level 4.2 g/dL (3.5-5.1); Alkaline Phosphatase 122 U/L (38-126); Anion Gap 9 mmol/L (4-12); Aspartate Amino Transferase 30 U/L (17-59); Bilirubin,Total 0.7 mg/dL (0.2-1.3); Blood Urea Nitrogen 25 mg/dL (9-20); Calcium 9.3 mg/dL (8.4-10.2); Carbon Dioxide 23 mmol/L (22-30); Chloride 103 mmol/L (98-107); Estimated CRCL calculation 64 ml/min; Estimated Glomerular Filt Rate > 60; Glucose 184 mg/dL (65-110); Magnesium 1.6 mg/dL (1.6-2.3); Potassium 4.3 mmol/L (3.4-5.0); Sodium 135 mmol/L (137-145); Total Protein 7.3 g/dL (6.3-8.2)
[2025-03-02 14:13] LABS: Troponin I 0.016 ng/mL (0.000-0.034)
--- OUTSIDE RECORDS SUMMARY | 2025-03-02 14:44 | XMS_ITS | Encounter Summary ---
Author Organization [facility] Address 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
--- OUTSIDE RECORDS SUMMARY | 2025-03-02 14:44 | XMS_ITS | Clinical Summary ---
Author Organization [facility] [employer] Address [address] [address] Care Team Providers Care Piece Goods Packer Name Role Phone Unknown, Provider Primary Care Provider Unavaila ble Source Comments [facility],non-owned Affiliates and Associated Physician Practices is amultiple site organization consisting of ambulatory clinics and hospital sitesin [place], [place]. This disclosure is being madepursuant to the Care Everywhere program and may not contain all information available regarding this patient. 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 Gender Identity Not on file Sexual [...] 10:04 AM CDT Height 185.4 cm (6' 1) 02/28/2024 10:04 AM CDT Body Mass Index [...] this topic Medical Devices Explanted Type Area Cloth Booker Device Identifier Shelf Expiration Date Model / Serial / Lot Stent Tria Sft 6x30 Implanted:Qty: 1 on 03/13/2022 by [facility] Explanted:Qty: 1 on 04/03/2022 by [facility] Left: Ureter [employer] Scimed 12/06/2024 [id number] / / [id number] Insurance MANAGED MEDICARE [place] [address] [place]ICAID - [place] [facility] MANAGED MEDICARE ADV MEDICAID - [place] [facility] MANAGED MEDICARE ADV Member Subscriber Plan / Payer (Ef fective 2024-Present) Name:Mary Grace Lau Relation to Subscriber:Self Name:Yaya Mary Grace Payer ID:[id number] (NAIC) Type:Medicare-Managed Care Address: [place] [phone] [place]ID - [place] Member Subscriber Plan / Payer (Ef fective for All Dates) Name:Mary Grace Lau Member ID:Not on file Relation to Subscriber:Self Name:YayaMary Grace Payer ID:Not on file Group ID:Not on file Type:Medicaid [place] Address: [place] [id number] [facility] MANAGED MEDICARE ADV Member Subscriber Plan / Payer (Ef fective 2024-Present) Name:Mary Grace Lau Relation to Subscriber:Self Name:Mary Grace Lau Payer ID:[id number] ([facility]) Type:Medicare-Managed Care Address: [address] MEDICAID - [place] [facility] MANAGED MEDICARE ADV Member Subscriber Plan / Payer (Ef fective 2024-Present) Name:Mary Grace Lau Relation to Subscriber:Self Name:Mary Grace Lau Payer ID:[id number] (NAIC) Type:Medicare-Managed Care Address: [address] * Guarantor: MARY GRACE LAU Account [...] Group ID:Not on file Type:Medicaid [place] Address: [address] MANAGED MEDICARE ADV Member Subscriber Plan / Payer (Ef fective 2024-) Name:Mary Grace Lau Relation to Subscriber:Self Name:Mary Grace Lau Payer ID:[id number] (NAIC) Type:Medicare-Managed Care Address: [place] [phone] * Guarantor: MARY GRACE LAU Account Type [...] Group ID:Not on file Type:Medicaid [place] Address: [address] MANAGED MEDICARE ADV * Guarantor: MARY GRACE LAU Account Type Relation to Patient Date of Phone Billing Address Personal/Family [address] [place] [address] [place] [address] [employer] MANAGED MEDICARE ADV Advance Directives * [...] 7:21 PM 12/01/2019 1:11 AM Care Teams Piece Goods Packer Relationship Specialty Start Date End Date Unknown, Provider PCP - General 02/28/24
--- OUTSIDE RECORDS SUMMARY | 2025-03-02 14:44 | XMS_ITS | Data Portability ---
Author Organization [facility] [employer], Main Office Address [address] [place] [address] Care Team Providers Care Lock Operator Name Role Phone SAHARA LEE Primary Care Provider [phone] SAHARA LEE Referring Provider BONNIE GUTIERRES Garment Sewer Hand ANA ROSA ESTRADA Neurosurgeon FIDENCIO JOSÉ Channel Man BETTE SOFIA Construction Equipment Mechanic GABI ROBBINS Urologist Assessment Encounter Date Assessment [...] Lab glycohemo globin, total, blood 2024 025 [facility], [address], [place], [address], 12/29/2024 17:56:33 microalbu min, urine 2024 025 [facility], [address], [place], [address], 12/29/2024 17:56:33 lipid panel, serum 2024 025 [facility], [address], [place], [address], 12/29/2024 17:56:31 CBC w/ auto diff 2024 025 [facility], [address], [place], [address], 12/29/2024 17:56:31 TSH, serum or plasma 2024 025 [facility], [address], [place], [address], 12/29/2024 17:56:34 CMP, serum or plasma 2024 025 [facility], [address], [place], [address], 12/29/2024 17:56:32 glycohemo globin, total, blood 2024 025 [facility], [address], [place], [address], 10/14/2024 15:03:11 microalbu min, urine 2024 025 [facility], [address], [place], [address], 01/02/2025 08:03:52 lipid panel, serum 2024 025 [facility], [address], [place], [address], 01/02/2025 08:03:50 CBC w/ auto diff 2024 025 [facility], [address], [place], [address], 01/02/2025 08:03:54 TSH, serum or plasma 2024 025 [facility], [address], [place], [address], 01/02/2025 08:03:55 CMP, serum or plasma 2024 025 [facility], [address], [place], [address], 01/02/2025 08:03:51 glycohemo globin, total, blood 2023 024 [facility], [address], [place], [address], 09/14/2024 09:45:27 microalbu min, urine 2023 024 [facility], [address], [place], [address], 09/14/2024 09:45:27 lipid panel, serum 2023 024 [facility], [address], [place], [address], 09/12/2024 07:48:24 CBC w/ auto diff 2023 024 [facility], [address], [place], [address], 09/12/2024 07:48:27 TSH, serum or plasma 2023 024 [facility], [address], [place], [address], 09/12/2024 07:48:29 CMP, serum or plasma 2023 024 [facility], [address], [place], [address], 09/12/2024 07:48:26 Referral rheumatol ogist referral - Please call patient to schedule an appointme nt. Thank you. 2024 025 ERYN [facility] (Rheumatology ), [address], [place], [address], 01/04/2025 11:05:20 urologist referral - Please call patient to schedule an appointme nt. Thank you. 2024 025 ERYN Freeman MD, [address] [place] [address], [place], [address], 01/04/2025 11:10:35 nephrolog ist referral - Please call patient to schedule an appointme nt. Thank you. 2024 025 ERYN Avila MD (Nephrology, [address], [address], [place], [address], 01/04/2025 11:10:35 podiatris t referral - Please call patient to schedule an appointme nt. Thank you. 2024 025 VIDHI José DPM, [address], [address], [place], [address], 12/30/2024 18:13:32 nephrolog ist referral - Please call patient to schedule. 2024 025 Melvin Avila MD (Nephrology, [address], [address], [place], [address], 10/15/2024 17:38:21 podiatris t referral 2024 025 [email or web address] Fidencio José DPM, [address], [address], [place], [address], 10/15/2024 17:38:12 nephrolog ist referral - Please call patient to schedule. 2023 024 emani Avila MD (Nephrology, [address], [address], [place], [address], 02/25/2025 15:00:58 podiatris t referral 2023 024 [email or web address] Fidencio José DPM, [address], [address], [place], [address], 08/13/2024 19:42:08 Procedures upper endoscopy procedure (EGD) (PROC) 2023 024 Bonnie Gutierres MD, [address], [address], [place], [address], 08/13/2024 19:41:28 Surgeries None recorded. Imaging US, liver - Please call patient to schedule. 2024 025 [email or web address] [facility], [address], [address], [place], [address], 10/14/2024 15:39:31 US, liver - Please call patient to schedule. 2023 024 [email or web address] [facility], [address], [address], [place], [address], 09/21/2024 13:32:50 Medication Orders None recorded. Patient TargetsNo targets recorded. Patient Instructions Encounter Date Encounter Id Patient Instructions Last Modified By Organization Details Last Modified Time 09/02/2024 [id number] 1. We changed hi s catheter today he will come back once a month for another catheter change Not available 09/02/2024 12:29:32 10/02/2024 [id number] continue with suprapubic tube change once a month Not available 10/02/2024 13:50:10 Reason for Referral Design Leader Referral for Pr oteinuria Please call patient to schedule. Referring Physician: Sahara Lee Internal Medicine, Encounter Date: 08/12/2024 Channel Man Referral for Type 2 diabetes mellitus without complication Referring Physician: Sahara Lee Internal Medicine, Encounter Date: 08/12/2024 Design Leader Referral for Pr oteinuria Please call patient to schedule. Referring Physician: Sara Mauricio Medicine, Encounter Date: 10/14/2024 Channel Man Referral for Type 2 diabetes mellitus without complication Referring Physician: Sahara Lee Internal Medicine, Encounter Date: 10/14/2024 Design Leader Referral for Pr oteinuria Please call patient to schedule an appointment. Thank you. Referring Physician: Sara Mauricio Medicine, Encounter Date: 12/29/2024 Channel Man Referral for Type 2 diabetes mellitus without complication Please call patient to schedule an appointment. Thank you. Referring Physician: Sahara Lee Internal Medicine, Encounter Date: 12/29/2024 Urologist Referral for Cysti tis Please call patient to schedule an appointment. Thank you. Referring Physician: Sara Mauricio Medicine, Encounter Date: 12/29/2024 Director Of Student Financial Services Referral for Paget's disease of pelvis Please call patient to schedule an appointment. Thank you. Referring Physician: Sara Mauricio, Encounter Date: 12/29/2024 Results Created Date Observation Date Name Description Value Unit Range Abnormal Flag Note LastModifiedBy Organization Detail LastModifiedTime 08/25/20 24 08/25/2024 imagi ng/di agnos tic resul t No observ ation record ed. [facility] [address], [place], [address], 08/25/2024 07:02:06 11/03/19 25 11/03/2024 imagi ng/di agnos tic resul t No observ ation record ed. [facility] [address], [place], [address], 11/03/2024 13:09:37 03/02/20 25 03/02/2025 imagi ng/di agnos tic resul t No observ ation record ed. [facility] [address], [place], [address], 03/02/2025 14:58:10 Result Notes None recorded. Problems Name Problem SNOMED Code Status Onset Date Resolution Date Notes Provider Name and Address Organization Details Recorded Time Diabetes mellitus 71776177 Active 2022 Not Available [facility] 4 05:59:13 Hyperlipid emia 83241266 Active 2022 Not Available [facility] 4 05:59:13 Essential hypertensi on 16300190 Active 2022 Not Available [facility] 4 05:59:13 Type 2 diabetes mellitus without complicati on 992996023 Active 2022 Not Available [facility] 4 05:59:13 Urinary incontinen ce 708637893 Active 2022 Not Available [facility] 4 05:59:13 Gastroesop hageal reflux disease without esophagiti s 735869595 Active 2022 Not Available [facility] 4 05:59:13 Moderate recurrent major depression 76119008 Active 2022 Not Available [facility] 4 05:59:13 Coronary arterioscl erosis 31721437 Active 2022 Not Available [facility] 4 05:59:13 Liver function tests outside reference range 193628816 Active 2022 Not Available [facility] 4 05:59:13 Microalbum inuria 802390645 Active 2022 Not Available [facility] 4 05:59:13 Osteoarthr itis of hip 606755287 Active 2023 Not Available [facility] 4 05:59:13 Pain of right hip joint 3764447076028 02 Active 2023 Lilia Shannon, ATC L null, [place] [facility] 4 11:07:46 Low back pain 249874013 Active 2023 Not Available [facility] 4 05:59:13 Neuropathy 286185976 Active 2023 Indigo Sandoval MA null, [place] [facility] 4 10:11:21 Chronic low back pain 169151177 Active 2023 Indigo Sandoval MA null, [place] [facility] 4 11:34:38 Pain of left hip joint 2478498434171 00 Active 2023 SARAH Quezada null, [place] [facility] 4 10:20:52 Blood in urine 62411796 Active 2023 Indigo Sandoval MA null, [place] [facility] 4 12:47:55 Cystitis 92006306 Active 2023 Sahara guzman MD [address], [address], [place], [address] , [place] [facility] 4 16:14:14 Steatotic liver disease 644033742 Active 2023 Sahara guzman MD [address], [place], [address] , [place] [facility] 4 09:40:39 Paget's disease- ltiple [facility] 628984905 Active 2023 Indigo Sandoval MA [facility], [place] [facility] 4 16:11:38 Syncope 479312355 Active 2023 Sahraa guzman MD [address], [address], [place], [address] , [place] [facility] [employer] 4 13:34:49 Anemia 667933980 Active 2023 Sahara guzman MD [address], [address], [place], [address] , [employer] [facility] [employer] 4 10:06:31 Peripheral neuropathy due to type 2 diabetes mellitus 5615966042981 Active 2023 Myron Guido DPM [address], [address], [place], [address] , [place] [facility] [employer] 4 08:48:27 Onychomyco sis of toenails 178999445 Active 2023 Myron Guido DPM [address], [address], [place], [address] , [employer] [facility] [employer] 4 08:48:34 Chronic retention of urine 248557542 Active 2023 Gabi Robbins MD [address], [address], [place], [address] , [facility] [employer] 4 16:20:24 Proteinuri a 06975361 Active 2023 Sahara guzman MD [address], [address], [place], [address] , [facility] - [facility] [employer] 4 12:09:03 Paget's disease of pelvis 102711275 Active 2024 Sahara guzman MD [address], [address], [place], [address] , [place] [facility] 5 17:54:58 Osteitis deformans 9278877 Active 2024 Yin Westfall [employer] priya, [place] [facility] [employer] 14:34:56 Polyarthro katerin 86140629 Active 2024 Yin Westfall [employer] powers, [place] [facility] [place] [facility] 14:37:47 Notes:Some problems listed i n Documents: #[id number], #[id number], #[id number] could not be added to this patient's chart. Please review these documents and add these problems to the patient's chart manually as needed. Problem Notes None recorded. Procedures Surgical History Date Name Laterality Status Provider Name and Address Organization Details Recorded Time 09/23/19 Pacemaker completed SARAH Hadley [place] [facility] [place] [email or web address] [facility] [employer] 10/14/2024 14:42:19 09/02/20 24 Cath Change completed Roseanne Cruz CMA [place] [facility] [email or web address] [facility] [employer] 09/02/2024 12:25:10 07/17/20 24 Nail Debridement completed Myron Guido DPM [address] [facility] [address], [place], [address], [facility] [email or web address] [facility] 07/20/2024 08:48:20 07/14/20 24 Transitional_Care_M anagement completed Sahara Lee MD [address] [facility] [facility] [address], [place], [address], [facility] - [facility] [email or web address] [facility] 07/14/2024 10:59:07 07/01/20 24 Colonoscopy completed SARAH Hadley [place] [facility] 07/14/2024 09:56:57 12/26/19 24 Medicare Wellness CPT Code, subsequent completed Camryn Donahue [place] [facility] [employer] 12/24/2023 13:07:44 Tonsillectomy completed SARAH Hadley [place] [facility] 08/27/2023 14:48:35 Cholecystectomy completed SARAH Hadley [place] [facility] 08/27/2023 14:48:41 total knee replacement completed SARAH Hadley [place] [facility] 08/27/2023 14:49:12 Orthopedic Surgery completed SARAH Hadley [facility] 08/27/2023 14:49:39 Bladder completed Yin Westfall [employer] [facility] 12/29/2024 17:22:13 Imaging Results None recorded. Procedure Notes None recorded. Medical Equipment None Reported. Allergies Allergen ID Allergen Name Allergen Category Reaction Reaction Severity Criticality Documentation Date Start Date Code Code System Note Provider Name and Address Organization Details Recorded Time 16706 morphine medicatio n Not available Not available Not available 06/04/2024 7052 [facility] 09:55:19 83295 aspirin medicatio n Not available Not available Not available 06/04/2024 1191 [facility]OGER [facility] 4 09:55:37 12686 amitripty line medicatio n Not available Not available Not available 06/04/2024 704 RxNorm [facility] 4 09:55:45 Medications Name Sig Start Date Stop Date Status Note LastModified by Organization Details LastModified Time atorvastati n 80 mg tablet TAKE ONE-HALF TABLET BY MOUTH DAILY 2024 active Not Available [...] release TAKE 1 TABLET BY MOUTH DAILY 2024 active Not Available [...] Not Available Vitals Date Recorded Body height Provider Name an d Address Organization Details Last Updated DateTime 10/02/2024 185.42 cm Roseanne Cruz CMA [employer] 10/02/2024 11:08:37 Date Recorded Body height Body mass index (BMI) Body weight Body temperature Heart rate Systolic blood pressure Diastolic blood pressure Provider Name and Address Organization Details Last Updated DateTime 5 185.42 cm 27.2 kg/m2 68498.0 3 g 97.9 [degF] 78 /min 120 mm[Hg] 60 mm[Hg] SARAH Hadley [employer] [facility] [employer] 5 14:48:27 Date Recorded Body height Body mass index (BMI) Body weight Body temperature Heart rate Systolic blood pressure Diastolic blood pressure Provider Name and Address Organization Details Last Updated DateTime 5 185.42 cm 29 kg/m2 11115.3 2 g 97.2 [degF] 78 /min 136 mm[Hg] 62 mm[Hg] SARAH Hadley [employer] [facility] [employer] 5 17:24:18 Date Recorded Body height Body mass index (BMI) Body weight Body temperature Heart rate Systolic blood pressure Diastolic blood pressure Provider Name and Address Organization Details Last Updated DateTime 4 185.42 cm 26.7 kg/m2 02877.6 6 g 97.7 [degF] 78 /min 100 mm[Hg] 54 mm[Hg] SARAH Hadley [employer] [facility] [employer] 4 11:46:27 Date Recorded Body height Heart rate Body temperature Body mass index (BMI) Body weight Oxygen saturation Oxygen saturation in Arterial blood by Pulse oximetry Systolic blood pressure Diastolic blood pressure Provider Name and Address Organization Details Last Updated DateTime 4 185.42 cm 80 /min 97 [degF] 27.7 kg/m2 49473.4 g 94 % 94 % 147 mm[Hg] 65 mm[Hg] Roseanne Cruz CMA [employer] [facility] [employer] 4 10:39:12 Social History Question Answer Notes LastModified by Organization Details LastModified Time Tobacco Smoking Status Former Smoker quit age 41 SARAH Hadley [facility] [employer] [facility] 10/14/2024 14:44:47 Do You Have An [...] Or The Highest Degree You Have Received? [id number] Information not available 08/27/2023 What Is The [...] You Able To Care For Yourself? Yes [email or web address] Information not available 12/26/2023 Are You Blind Or Do Yo Have Difficulty Seeing? No [email or web address] Information not available 12/26/2023 Are You Deaf Or Do You Have Serious Difficulty Hearing? Yes [email or web address] Information not available 12/26/2023 Live Alone Of With Others? With Others [email or web address] Information not available 12/26/2023 Do You Have A Medical Power Of Operating Cost Clerk? Yes Information not available 08/27/2023 What Was [...] Functional Status Question Answer Note LastModified by [employer] Details LastModified Time Do you use [...] anxious, or unable to sleep at night)? [id number] Information not available 08/27/2023 Do you have difficulty concentrating, remembering or making decisions? Yes Information no t available 08/27/2023 Family History Relationship Description Onset Age of this Age Resolved Age Notes LastModified by Organization Details LastModified Time Son Aortic valve stenosis 10 [email or web address] Not available 09/02 10:03:12 Sister Diabetes mellitus Not available 2022 14:42:08 Mother Myocardial infarction Not available 08/27 14:42:20 Mother Heart disease [email or web address] Not available 02/2024 11:06:02 Father Leukemia [email or web address] Not availab le 09/02/2024 10:03:12 Brother Diabetes [...] SNOMED-CT Code Diagnosis ICD10 Code Diagnosis Note [id number] Sahara guzman MD [facility] [address] [facility] [address] [place] [address] 08/27/2023 14:08:20 08/27/2023 15:23:27 Screening - NAD 722800833 Z13.9 C-scope: Get this done Get yearly flu shotGet tdap if not doneGet COVID 19 vaccineGet PCV #20Get Shingrix and RSV vaccinesHe has declined all his vaccines 08/27/2023 RTC in 4 months, do labs, ER if worse, he and his son verbalized his understand ing of the above Essential hypertension 50144322 I10 On lisinopril 2.5mg dailyGet labsGet a referral to cardiology Hyperlipidemia 48195022 E78.5 On ASAOn atorvastat in 80mg 1/2 tab dailyGet labs 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 979042108 E11.9 On synjardy XR 5-500mg bidOn trulicity 1.5mg weeklyGet labs Urinary incontinence 165 346869 R32 On flomaxOn myrbetriq Screening for malignant neoplasm of colon 733906873 Z12.11 Screening for malignant neoplasm of prostate 106127205 Z12.5 Ex-cigarette smoker 2810 07361 Z87.891 Get US AAA Gastroesop hageal reflux disease without esophagitis 999677215 K21.9 On omeprazole 20mg daily, take PRN, get EGD Moderate r ecurrent major depression 56063013 F33.1 States that he did use to have [facility] used to be on medication s, but has not taken these, used to see psychiatry in the past, declines any meds or referrals, states that he is doing very well, not suicidal or homicidal Coronary arteriosclerosis 41672299 I25.10 On eliquisSho uld NOT be on coumadinNe eds to see cardiology [id number] Mode Jerez MD [facility] [place] [address] [place] [address] 10/29/2023 10:34:14 10/29/2023 11:28:20 Pain of right hip joint 2895211405 25926 M25.551 Low back pain 233838251 M54.50 [id number] Mode Jerez MD [facility] [place] [address] [place] [address] 11/26/2023 10:10:38 11/26/2023 11:16:18 Pain of left hip joint 6053949691 21907 M25.552 Low back pain 919589188 M54.50 [id number] Sahara guzman MD [facility] Internal Med [address] [facility] [place] [address] 12/26/2023 17:21:50 12/26/2023 18:05:09 Screening - NAD 372507667 Z13.9 C-scope: Get this done Get yearly flu shotGet tdap if not doneGet COVID 19 vaccineGet PCV #20Get Shingrix and RSV vaccinesHe has declined all his vaccines 08/27/2023 RTC in 4 months, do labs, ER if worse, he verbalized his understand ing of the above Essential hypertension 87735518 I10 On lisinopril 2.5mg dailyGet labsGet a referral to cardiology Hyperlipidemia 42067711 E78.5 On ASAOn atorvastat in 80mg 1/2 tab dailyGet labs 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 723324720 E11.9 On metformin ER 500mg bidOn synjardy XR 5-500mg bid, d/c this as he is already on metforminO n trulicity 1.5mg weeklyGet labs Urinary incontinence 165 042350 R32 On flomaxOn myrbetriq Screening for malignant neoplasm of colon 165630983 Z12.11 Ex-cigarette smoker 2810 67368 Z87.891 AAA: 10/14/2023 : Neg Gastroesop hageal reflux disease without esophagitis 058849621 K21.9 On omeprazole 20mg daily, take PRN, get EGD Moderate r ecurrent major depression 63893905 F33.1 States that he did use to have [facility], used to be on medication s, but has not taken these, used to see psychiatry in the past, declines any meds or referrals, states that he is doing very well, not suicidal or homicidal Coronary arteriosclerosis 67366770 I25.10 On eliquisSho uld NOT be on coumadinNe eds to see cardiology Cystitis 97397255 N30.90 S/p ER 12/05/2023 , s/p CT A/P 12/05/2023 Referred to urology Pain of le ft hip joint 3134458225 05426 M25.552 [facility] ER 11/26/2023 Dr Jerez/Magy 11/26/2023 , treated with PT Low back pain 697597893 M54.50 Addnedum 11/26/2023 See case on 11/14/2023 , tramadol sent On methocarbo mol, see [facility] note, should stop thisAlso stop any NSAIDs Referred to Dr Payne ortho spine surgeonAls o to see Dr Jerez on 01/01/2024 Adult heal th examination 254364805 Z00.00 Screening for disorder 769704461 Z13.9 [id number] Sahara guzman MD [facility] [address] [facility] [place] [address] 06/04/2024 09:47:52 06/04/2024 10:38:05 Screening - NAD 295109628 Z13.9 C-scope: Get this done Get yearly flu shotGet tdap if not doneGet COVID 19 vaccineGet PCV #20Get Shingrix and RSV vaccinesHe has declined all his vaccines 08/27/2023 RTC in 4 months, do labs, ER if worse, he verbalized his understand ing of the above Essential hypertension 73461041 I10 On lisinopril 2.5mg dailyGet labsGet a referral to cardiology Hyperlipidemia 75775126 E78.5 On ASAOn atorvastat in 80mg 1/2 tab dailyGet labs 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 661166190 E11.9 On metformin ER 500mg bidOn synjardy XR 5-500mg bid, d/c this as he is already on metforminO n trulicity 1.5mg weeklyGet labs Urinary incontinence 165 320937 R32 On flomaxOn myrbetriq 12/05/2023 : [facility] ER s/p fall hematuria, CT A/P CT A/P 01/29/2024 d/t hematuria from recent cystoscopy [facility] 03/29/2024 :CT A/P: 03/29/2024 : L hydronephr osis Bladder Bx: 04/10/2024 : Dr Freeman Screening for malignant neoplasm of colon 691421061 Z12.11 Ex-cigarette smoker 2810 90018 Z87.891 AAA: 10/14/2023 : Neg Gastroesop hageal reflux disease without esophagitis 190558791 K21.9 On omeprazole 20mg daily, take PRN, get EGD Moderate r ecurrent major depression 33107479 F33.1 States that he did use to have [facility], used to be on medication s, but has not taken these, used to see psychiatry in the past, declines any meds or referrals, states that he is doing very well, not suicidal or homicidal Coronary arteriosclerosis 13312743 I25.10 On eliquisSho uld NOT be on coumadinNe eds to see cardiology Cystitis 01100822 N30.90 S/p ER 12/05/2023 , s/p CT A/P 12/05/[address] A/P 01/29/2024 d/t hematuria from recent cystoscopy [facility] 03/29/2024 :CT A/P: 03/29/2024 : L hydronephr osis Bladder Bx: 04/10/2024 : Dr Parres Pain of le ft hip joint 5800678940 91679 M25.552 [facility] 11/26/2023 Dr Jerez/Magy 11/26/2023 , treated with PT Low back pain [id number] M54.50 Addnedum 11/26/2023 See case on 11/14/2023 , tramadol sent On methocarbo mol, see [facility] note, should stop thisAlso stop any NSAIDs Referred to Dr Payne ortho spine surgeonAls o to see Dr Jerez on 01/01/2024 MRI T/C spine 05/01/2024 Steatotic liver disease 185667535 K76.0 12/05/2023 : CT A/PUS liver 10/14/2023 Get labs Screening for malignant neoplasm of prostate 048353218 Z12.5 [id number] Sahara guzman MD [facility] [address] [facility], [address] [place] [address] 07/14/2024 09:47:47 07/14/2024 10:40:52 Screening - NAD 918321480 Z13.9 C-scope: Get this done Get yearly flu shot, declined 07/14/2024 Get tdap if not doneGet COVID 19 vaccineGet PCV #20Get Shingrix and RSV vaccinesHe has declined all his vaccines 08/27/2023 , 07/14/2024 RTC in 4 months, do labs, ER if worse, he and his son did verbalize his understand ing of the above Essential hypertension 67801985 I10 On lisinopril 2.5mg daily, do not take till seen by cardiology d/t recent hospitaliz ation for syncope, d/c 07/08/2024 Get labsGet a referral to cardiology Hyperlipidemia 92918677 E78.5 On ASAOn atorvastat in 80mg 1/2 tab dailyGet labs 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 237679264 E11.9 On metformin ER 500mg bidOn synjardy XR 5-500mg bid, d/c this as he is already on metforminO n trulicity 1.5mg weeklyGet labs Urinary incontinence 165 565566 R32 On flomaxOn myrbetriq 12/05/2023 : [facility] ER s/p fall hematuria, CT A/P CT A/P 01/29/2024 d/t hematuria from recent cystoscopy [facility] 03/29/2024 :CT A/P: 03/29/2024 : L hydronephr osis Bladder Bx: 04/10/2024 : Dr Freeman Screening for malignant neoplasm of colon 560619174 Z12.11 Ex-cigarette smoker 2810 82665 Z87.891 AAA: 10/14/2023 : Neg Gastroesop hageal reflux disease without esophagitis 060330993 K21.9 On omeprazole 20mg daily, take PRN, get EGD Moderate r ecurrent major depression 71547835 F33.1 States that he did use to have [facility] used to be on medication s, but has not taken these, used to see psychiatry in the past, declines any meds or referrals, states that he is doing very well, not suicidal or homicidal Coronary arteriosclerosis 79044220 I25.10 On eliquis, restarted on at D/c from [facility] on 07/08/2024 Should NOT be on coumadinNe eds to see cardiology Cystitis 76786901 N30.90 S/p ER 12/05/2023 , s/p CT A/P 12/05/[address] A/P 01/29/2024 d/t hematuria from recent cystoscopy [facility] 03/29/2024 :CT A/P: 03/29/2024 : L hydronephr osis Bladder Bx: 04/10/2024 : Dr Freeman Seen in the ER and admitted to [facility]/c 07/08/2024 : Noted to have hematuria, has to see Dr Cantrell on flomax 0.4mg daily Pain of le ft hip joint [id number] 74088 M25.552 [facility] 11/26/2023 Dr Jerez/Magy 11/26/2023 , treated with PT Low back pain 583931631 M54.50 Addnedum 11/26/2023 See case on 11/14/2023 , tramadol sent On methocarbo mol, see [facility] note, should stop thisAlso stop any NSAIDs Referred to Dr Payne ortho spine surgeonAls o to see Dr Jerez on 01/01/2024 MRI T/C spine 05/01/2024 On gabapentin 300mg tid Steatotic liver disease 339684985 K76.0 12/05/2023 : CT A/PUS liver 10/14/2023 Syncope 953556128 R55 S/p D/c 07/08/2024 : [facility] brain 07/04/2024 CT C-spine 07/04/2024 XR Chest 07/04/2024 ECHO 07/04/2024 : 55-60%MRI brain 07/07/2024 : [facility] eds to see Dr Freeman Transition of care 74413 05300 105 Z75.8 Anemia 039263750 D64.9 On iron 325mg daily, get labs Neuropathy 860477096 G62 [address] Mills anS/p EMG [id number] Myron Guido DPM [facility] [place] [address] [address] 07/17/2024 09:50:02 07/21/2024 09:34:00 Peripheral neuropathy due to type 2 diabetes mellitus 5372089148 107 E11.42 Onychomyco sis of toenails 838796270 B35.1 [id number] Gabi Robbins MD [facility] [place] [address] [place] [address] 08/07/2024 15:13:33 08/07/2024 16:26:29 Chronic retention of urine 202858397 R33.8 [id number] Sahara guzman MD [facility] [address] [place] [address] 08/12/2024 11:22:19 08/12/2024 12:43:30 Screening - NAD 449595097 Z13.9 C-scope: Get this done Get yearly [...] apt with urology and cardiology Essential hypertension 74174989 I10 On lisinopril 2.5mg daily, do not take till seen by cardiology d/t recent hospitaliz ation for syncope, d/c 07/08/2024 Get labsGet a referral to cardiology Hyperlipidemia 28420857 E78.5 On ASAOn atorvastat in 80mg 1/2 tab dailyGet labs 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 288301512 E11.9 On metformin ER 500mg bidOn synjardy XR 5-500mg bid, d/c this as he is already on metforminO n trulicity 1.5mg weeklyGet labs Urinary incontinence 165 320947 R32 On flomaxOn myrbetriq 12/05/2023 : [facility] ER s/p fall hematuria, CT A/P CT A/P 01/29/2024 d/t hematuria from recent cystoscopy [facility] 03/29/2024 :CT A/P: 03/29/2024 : L hydronephr osis Bladder Bx: 04/10/2024 : Dr Freeman Ex-cigarette smoker 2810 37831 Z87.891 US AAA: 10/14/2023 : Neg Coronary arteriosclerosis 76351767 I25.10 On eliquis, restarted on at D/c from [facility] on 07/08/2024 Should NOT be on coumadin Dr Sofia [facility] 08/06/2024 : On eliquis, and has to see Dr Marlen Roaop hageal reflux disease without esophagitis 852376180 K21.9 On omeprazole 20mg daily, take PRN, get EGD Moderate r ecurrent major depression 90043652 F33.1 States that he did use to have [facility], used to be on medication s, but has not taken these, used to see psychiatry in the past, declines any meds or referrals, states that he is doing very well, not suicidal or homicidal Cystitis 80778413 N30.90 On flomaxOn Myrbetriq 50mg daily S/p ER 12/05/2023 , s/p CT A/P 12/05/2023 Referred to urologyCT A/P 01/29/2024 d/t hematuria from recent cystoscopy [facility] 03/29/2024 :CT A/P: 03/29/2024 : L hydronephr osisBladde r Bx: 04/10/2024 : Dr Edward in the ER and admitted to [facility] D/c 07/08/2024 : Noted to have hematuria, has to see Dr Pete Robbins 08/07/2204 : to get monthly Omer Cath done Pain of le ft hip joint 0456903960 50506 M25.552 [facility] 11/26/2023 Dr Jerez/Magy 11/26/2023 , treated with PT Low back pain 491810126 M54.50 Addnedum 11/26/2023 See case on 11/14/2023 , tramadol sent On methocarbo mol, see [facility] note, should stop thisAlso stop any NSAIDs Referred to Dr Payne ortho spine surgeonAls o to see Dr Jerez on 01/01/2024 MRI T/C spine 05/01/2024 On gabapentin 300mg tid Steatotic liver disease 489998462 K76.0 12/05/2023 : CT A/PUS liver 10/14/2023 Hep panel/GGT: Neg 06/04/2024 Repeat US liver, ordered 08/12/2024 Syncope [id number] R55 S/[facility] D[facility]-spine 07/04/2024 XR Chest 07/04/2024 ECHO 07/04/2024 : 55-60%MRI brain 07/07/2024 : [facility] OV 08/12/2024 : Does well now Anemia 497075091 D64.9 On iron 325mg daily, get labs Neuropathy 258343005 G62 [address] Mills anS/p EMG Proteinuria 60377503 R80 .9 Refer to nephrology [id number] MD EDITH Melendez [facility] [address] [address] 09/02/2024 09:59:47 09/02/2024 10:35:07 Chronic retention of urine 775616925 R33.8 [id number] MD EDITH Melendez [facility] [address] [address] 10/02/2024 10:44:50 10/02/2024 11:27:52 Chronic retention of urine 859715780 R33.8 [id number] Sahara guzman MD [facility] Primary Care Cath[address] [facility] [address] [place] [address] 10/14/2024 14:34:18 10/14/2024 15:06:28 Screening - NAD 239003264 Z13.9 C-scope: Get this done Get yearly [...] apt with urology and cardiology Essential hypertension 25411408 I10 Not on lisinopril 2.5mg daily, do not take till seen by cardiology d/t recent hospitaliz ation for syncope, d/c 07/08/2024 Get labs Hyperlipidemia 35942095 E78.5 On ASAOn atorvastat in 80mg 1/2 tab dailyGet labs 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 187257193 E11.9 On metformin ER 500mg bidOn synjardy XR 5-500mg bid, d/c this as he is already on metforminO n trulicity 1.5mg weeklyGet labs Urinary incontinence 165 705545 R32 On flomaxOn myrbetriq 12/05/2023 : [facility] ER s/p fall hematuria, CT A/P CT A/P 01/29/2024 d/t hematuria from recent cystoscopy [facility] 03/29/2024 :CT A/P: 03/29/2024 : L hydronephr osis Bladder Bx: 04/10/2024 : Dr Freeman Ex-cigarette smoker 8670 65678 Z87.891 US AAA: 10/14/2023 : Neg Coronary arteriosclerosis 78947554 I25.10 On eliquis, restarted on at D/c from [facility] on 07/08/2024 Should NOT be on coumadin OV 10/14/2024 :Dr Sofia [facility] 08/06/2024 : On eliquis, and has to see Dr Gee and is s/p PCM insertion Gastroesop hageal reflux disease without esophagitis 190495829 K21.9 On omeprazole 20mg daily, take PRN,Get EGD report Moderate r ecurrent major depression 90496931 F33.1 States that he did use to have [facility], used to be on medication s, but has not taken these, used to see psychiatry in the past, declines any meds or referrals, states that he is doing very well, not suicidal or homicidal Cystitis 66298345 N30.90 On flomaxOn Myrbetriq 50mg daily S/p ER 12/05/2023 , s/p CT A/P 12/05/2023 Referred to urologyCT A/P 01/29/2024 d/t hematuria from recent cystoscopy [facility] 03/29/2024 :CT A/P: 03/29/2024 : L hydronephr osisBladde r Bx: 04/10/2024 : Dr Edward in the ER and admitted to [facility] D/c 07/08/2024 : Noted to have hematuria, has to see Dr Pete Robbins 08/07/2204 : to get monthly Omer Cath done Pain of le ft hip joint 7189043633 41309 M25.552 [facility] 11/26/2023 Dr Jerez/Magy 11/26/2023 , treated with PT Low back pain 316817102 M54.50 Addnedum 11/26/2023 See case on 11/14/2023 , tramadol sent On methocarbo mol, see [facility] note, should stop thisAlso stop any NSAIDs Referred to Dr Payne ortho spine surgeonAls o to see Dr Jerez on 01/01/2024 MRI T/C spine 05/01/2024 On gabapentin 300mg tid Steatotic liver disease 541564295 K76.0 12/05/2023 : CT A/PUS liver 10/14/2023 Hep panel/GGT: Neg 06/04/2024 Repeat US liver, ordered 08/12/2024 Syncope [id number] R55 S/p D[facility]-sp[facility] 07/04/2024 XR Chest 07/04/2024 ECHO 07/04/2024 : 55-60%MRI brain 07/07/2024 : [facility] OV 08/12/2024 : Does well now Anemia 187445132 D64.9 On iron 325mg daily, get labs Neuropathy 630537333 G62 .[address] Mills anS/p EMG Proteinuria 78793196 R80 .9 Refer to nephrology Screening for malignant neoplasm of colon 905641924 Z12.11 Get C-scope report [id number] Sahara guzman MD [facility] Internal Med [facility] [address] [facility], [facility] [address] [place] [address] 12/29/2024 16:37:02 12/29/2024 18:14:17 Screening - NAD 882727038 Z13.9 C-scope/EG : Dr Aguilar Get yearly flu shot, declined 07/14/2024 Get tdap if not doneGet COVID 19 vaccineGet PCV #20Get Shingrix and RSV vaccinesHe has declined all his vaccines 08/27/2023 , 07/14/2024 RTC in 2 months, do labs, ER if worse, he and his son did verbalize his understand ing of the above Essential hypertension 53523755 I10 Not on lisinopril 2.5mg dailyGet labs Hyperlipidemia 38772359 E78.5 On ASAOn atorvastat in 80mg 1/2 tab dailyGet labs 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 309998622 E11.9 On metformin ER 500mg bidNot on synjardy XR 5-500mg bid, d/c this as he is already on metforminO n trulicity 1.5mg weeklyGet labs Urinary incontinence 165 715458 R32 On flomaxOn myrbetriq 12/05/2023 : [facility] ER s/p fall hematuria, CT A/P CT A/P 01/29/2024 d/t hematuria from recent cystoscopy [facility] 03/29/2024 :CT A/P: 03/29/2024 : L hydronephr osis Bladder Bx: 04/10/2024 : Dr Freeman Ex-cigarette smoker 2810 72186 Z87.891 US AAA: 10/14/2023 : Neg Coronary arteriosclerosis 43940502 I25.10 On eliquis, restarted on at D/c from [facility] on 07/08/2024 Should NOT be on coumadin OV 10/14/2024 :Dr Sofia [facility] 08/06/2024 : On eliquis, and has to see Dr Gee and is s/p PCM insertion OV 12/29/2024 : Keep apt with cardiology Gastroesop hageal reflux disease without esophagitis 685726301 K21.9 On omeprazole 20mg daily, take PRN,Get EGD report Moderate r ecurrent major depression 77403013 F33.1 States that he did use to have [facility], used to be on medication s, but has not taken these, used to see psychiatry in the past, declines any meds or referrals, states that he is doing very well, not suicidal or homicidal Cystitis 44036085 N30.90 On flomaxOn Myrbetriq 50mg daily S/p ER 12/05/2023 , s/p CT A/P 12/05/2023 Referred to urologyCT A/P 01/29/2024 d/t hematuria from recent cystoscopy [facility] 03/29/2024 :CT A/P: 03/29/2024 : L hydronephr osisBladde r Bx: 04/10/2024 : Dr Edward in the ER and admitted to [facility] D/c 07/08/2024 : Noted to have hematuria, has to see Dr Pete Robbins 08/07/2204 : to get monthly Omer Cath done OV 12/29/2024 : Now should see urology, referred Pain of le ft hip joint 9251358855 77477 M25.552 [facility] 11/26/2023 Dr Jerez/Magy 11/26/2023 , treated with PT Low back pain 123894879 M54.50 Addnedum 11/26/2023 See case on 11/14/2023 , tramadol sent On methocarbo mol, see [facility] note, should stop thisAlso stop any NSAIDs Referred to Dr Elmer ortho spine surgeonAls o to see Dr Jerez on 01/01/2024 MRI T/C spine 05/01/2024 On gabapentin 300mg tid Steatotic liver disease 066550712 K76.0 12/05/2023 : CT A/PUS liver 10/14/2023 Hep panel/GGT: Neg 06/04/2024 US liver 11/03/2024 : Neg Syncope 705367519 R55 S[facility] 07/04/2024 XR Chest 07/04/2024 ECHO 07/04/2024 : 55-60%MRI brain 07/07/2024 : [facility] OV 08/12/2024 : Does well now Anemia 971399657 D64.9 On iron 325mg daily, get labs Neuropathy 252061611 G62 .[address] Mills anS/p EMG Proteinuria 63469262 R80 .9 Refer to nephrology Paget's di sease of pelvis 096015006 M88.88 S/p CT A/P 11/03/2024 Refer to rheumatolo gy Health Concerns Section Related Observation LastModified by Organization Detai ls LastModified Time None Recorded Concern Status LastModified by Organization Details LastModified Time None Recorded Advance Directives Directive Y: Payers Encounter Date Sequence Insurance Name Policy Number Policy Robles Covered Member ID Robles Member ID Guarantor Name 08/12/2024 1 [facility] (MEDICARE REPLACEMENT/A DVANTAGE - PPO) [id number] Cosme Javier [id number] Cosme Javier 08/12/2024 2 [place] [facility] Cosme Javier [id number] Cosme Javier 09/02/2024 1 [facility] (MEDICARE REPLACEMENT/A DVANTAGE - PPO) [id number] Cosme Javier [id number] Cosme Javier 09/02/2024 2 [place] [facility] Cosme Javier [id number] Cosme Javier 10/02/2024 1 [facility] (MEDICARE REPLACEMENT/A DVANTAGE - PPO) [id number] Cosme Javier [id number] Cosme Javier 10/02/2024 2 [place] [facility] Cosme Javier [id number] Cosme Javier 10/14/2024 1 [facility] (MEDICARE REPLACEMENT/A DVANTAGE - PPO) [id number] Cosme Javier [id number] Cosme Javier 10/14/2024 2 [place] OR [place]IC[place] REPLACEMENT [place]IMARY) Cosme Javier [id number] Cosme Javier 12/29/2024 1 [facility] (MEDICARE REPLACEMENT/A DVANTAGE - PPO) [id number] Cosme Javier [id number] Cosme Javier 12/29/2024 2 [place] OR [place]IC[place]PLACEMENT [place]IMARY) Cosme Javier [id number] Cosme Javier Notes Date Note Type Note [...] hosp f/u apt, he was d/c from [facility] 07/08/2024 for an episode of syncope, was found to have gross hematuria and anemia, now is feeling much better, he is here with his son Abraham, he is now on the iron tablets, denies any hematuria now OV 08/12/2024: Here for his f/u apt, he is doing well today Sahara Lee MD [address], [place], [address], [employer] 08/12/2024 19:20:05 09/02/2024 text/html this patient is here for a catheter change. He wants to continue with catheter changes he does not want a suprapubic tube he is doing well Gabi Robbins MD [address], [place], [address], [place] [employer] 09/02/2024 12:31:40 10/02/2024 text/html this patient is coming in to get a suprapubic tube changed Gabi Robbins MD [address] [facility], [facility] [address], [place], [address], [facility] [employer] [facility] 10/02/2024 13:50:45 10/14/2024 text/html OV 08/27/2023:He re to establish carePast Hx:Olga Lidia smoker Reviewed social family and surgical historyHere [...] hosp f/u apt, he was d/c from [facility] 07/08/2024 for an episode of syncope, was [...] now s/p PCM insertion with Dr Gee [facility] Sahara Lee MD [address] [facility], [facility] [address], [place], [address], [facility] [employer] [facility] 10/14/2024 15:04:31 12/29/2024 text/html OV 08/27/2023:He re to establish carePast Hx:Olga Lidia smoker Reviewed social family and surgical historyHere [...] hosp f/u apt, he was d/c from [facility] 07/08/2024 for an episode of syncope, was [...] now s/p PCM insertion with Dr Gee [facility] OV 12/29/2024: Here for his f/u apt, he is doing well today Sahara Lee MD [address] [place] [address] [address], [place] [address], [place], [address], [place] [employer] [facility] 12/29/2024 18:25:24
--- OUTSIDE RECORDS SUMMARY | 2025-03-02 14:44 | XMS_ITS | Encounter Summary ---
Author Organization [facility] Address 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
--- OUTSIDE RECORDS SUMMARY | 2025-03-02 14:44 | XMS_ITS | Encounter Summary ---
Author Organization [facility] Address 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
--- OUTSIDE RECORDS SUMMARY | 2025-03-02 14:44 | XMS_ITS | Encounter Summary ---
Author Organization [facility] Address [address] [place] [address] Care Team Providers Care Interior Wall Assembler Name Role Phone DearCampbell DO Primary Care Provider + Encounter Details Date Type Department Care Team (Late st Contact Info) Description 07/09/2002 Outpatient Historical [facility] Internal Medicine [place] [address] [place] [phone] Reg Katz MD Social History Tobacco Use Types Packs/Day Years Used Date Smoking Tobacco: Never Assessed Sex and Gender Information Value Date Recorded Sex Assigned at Not on file Legal Sex Male 5:24 AM APPEALS MANAGER Gender Identity Not on file Sexual Orientation Not on file documented as of this encounter Plan of Treatment Not on file documented as of this encounter Visit Diagnoses Not on filedocumented in this encounter Care Teams Interior Wall Assembler Relationship Specialty Start Date End Date DearCampbell DO [address] [place] [address] PCP - General Family Practice 07/09/22 documented as of this encounter
--- OUTSIDE RECORDS SUMMARY | 2025-03-02 14:44 | XMS_ITS | Clinical Summary ---
Author Organization [facility] Address [address] [facility] [address] [place] [address] Phone Care Team Providers Care Farm Assistant Name Role Phone Dear, Campbell Bullard DO [...] hyperglycemia, without long-term current use of insulin (CMS/[facility]) INJECT 0.5ML(1.5MG) SUBCUTANEOUS EVERY 7 DAYS 6 [...] on file Legal Sex Male 5:24 AM CONFERENCE MANAGER Gender Identity Not on file Sexual [...] 6:33 AM CDT Height 185.4 cm (6' 1) 12/08/2023 6:33 AM CDT Body Mass Index [...] history exists Medical Devices Implanted Type Area Test Desk Operator Device Identifier Shelf Expiration Date Model / Serial / Lot Knee Description:bilateral Hardware Description:head Procedures Procedure Name Priority Date/Time Associated Diagnosis Comments HEMOGLOBIN A1C Routine 12/07/2023 11:36 PM CDT MICROALBUMIN/CREATIN INE RATIO, RANDOM UR Routine 09/29/2020 1:44 PM CONFERENCE MANAGER Uncontrolled type 2 diabetes mellitus with diabetic polyneuropathy, without long-term current use of insulin LIPID PANEL Routine 09/29/2020 1:44 PM CONFERENCE MANAGER Uncontrolled type 2 diabetes mellitus with diabetic polyneuropathy, without long-term current use of insulin from Last 3 Months or Most Recently Relevant to Health Maintenance Results * (ABNORMAL) HEMOGLOBIN A1C (12/07/2023 11:36 PM CDT) HEMOGLOBIN A1C 7.6(H) <5.7 % 12/08/2023 10:41 AM CDT [facility] EST. AVG GLUCOSE, A1C 171 mg/dL 12/08/2023 10:41 AM CDT [facility] Blood Venipuncture / Unknown 12/07/2023 11:36 PM CDT 12/07/2023 11:40 PM CDT Narrative [facility] - 12/08/2023 10:41 AM CDT HGB A1C INTERPRETATION NORMAL: <5.7% PRE-DIABETES: 5.7 - 6.4% DIABETES: 6.5% OR GREATER us Valdez Castro MD CHEMISTRY ORDERABLES Final Resul t [facility]# [id number] [address] [place] [address] * (ABNORMAL) MICROALBUMIN/CREATININE RATIO, RANDOM UR (09/29/2020 1:44 PM CONFERENCE MANAGER) MICROALBUMIN, URINE 2.2 No Reference Range mg/dL 09/29/2020 2:48 PM CONFERENCE MANAGER [facility] CREATININE, URINE 38.5(L) 40.0 - 278.0 mg/dL 09/29/2020 2:48 PM [facility] [employer] Comment:Reference Range vari es with fluid intake and diet. MICROALBUMIN/ CREAT RATIO, UR 57.1(H) <17.0 mg/g 09/29/2020 2:48 PM [facility] Urine URINE SPECIMEN OBTAINED BY CLEAN CATCH PROCEDURE / Unknown Collection / Unknown 09/29/2020 1:44 PM CONFERENCE MANAGER 09/29/2020 1:59 PM CONFERENCE MANAGER [facility] - 09/29/2020 2:48 PM CONFERENCE MANAGER Condition Microalbumin/Creat ratio Normal Males <17 Normal Females <25 Microalbuminuria Males 17-299 Microalbuminuria Females 25-299 Overt proteinuria >=300 Rafy Ward MD URINE ORDERABLES Final Result [facility]# [id number] [address] [place] [address] * LIPID PANEL (09/29/2020 1:44 PM CONFERENCE MANAGER) CHOLESTEROL 93 <200 mg/dL 09/29/2020 2:38 PM [facility] TRIGLYCERIDE 72 <150 mg/dL 09/29/2020 2:38 PM [facility] HDL 53 40 - 59 mg/dL 09/29/2020 2:38 PM [facility] LDL CALCULATED 26 <100 mg/dL 09/29/2020 2:38 PM [facility] NON-HDL CHOLESTEROL 40 <130 mg/dL 09/29/2020 2:38 PM [facility] Blood Venipuncture / Unknown 09/29/2020 1:44 PM CONFERENCE MANAGER 09/29/2020 1:59 PM CONFERENCE MANAGER Narrative [facility] - 09/29/2020 2:38 PM CONFERENCE MANAGER TOTAL CHOLESTEROL mg/dL Desirable <200 Borderline high [...] Ward MD CHEMISTRY ORDERABLES Final Re sult [facility]# [id number] [address] [place] [address] from Last 3 Months or Most Recently Relevant to Health Maintenance Insurance RX [employer] RX Member Subscriber Plan / Payer (Ef fective 2023-Present) Name:Cosme Javier Relation to Subscriber:Self Name:Cosme Javier Payer ID:Not on file Group ID:[id number] Type:RX Medicare Part D Address: [address] [place] Advance Directives For more information, please contact: [phone] * NO CPR (In Event of Cardiopulmonary [...] 9:43 AM 07/15/2017 5:31 PM Care Teams Farm Assistant Relationship Specialty Start Date End Date Dear, Campbell Bullard DO [facility] [place] [phone] PCP - General Family Practice 07/09/22
--- OUTSIDE RECORDS SUMMARY | 2025-03-02 14:44 | XMS_ITS | Encounter Summary ---
Author Organization [facility] Address 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
--- OUTSIDE RECORDS SUMMARY | 2025-03-02 14:44 | XMS_ITS | Encounter Summary ---
Author Organization [facility] Address [address] [place] [address] Care Team Providers Care Die Set Up Worker Name Role Phone DearCampbell DO Primary Care Provider + Encounter Details Date Type Department Care Team (Late st Contact Info) Description 10/13/2001 Outpatient Historical [facility] Internal Medicine [place] [address] [place] [phone] Reg Katz MD Social History Tobacco Use Types Packs/Day Years Used Date Smoking Tobacco: Never Assessed Sex and Gender Information Value Date Recorded Sex Assigned at Not on file Legal Sex Male 5:24 AM FLIGHT ATTENDANT INFLIGHT SERVICES Gender Identity Not on file Sexual Orientation Not on file documented as of this encounter Plan of Treatment Not on file documented as of this encounter Visit Diagnoses Not on filedocumented in this encounter Care Teams Die Set Up Worker Relationship Specialty Start Date End Date DearCampbell DO [address] [place] [address] PCP - General Family Practice 07/09/22 documented as of this encounter
--- OUTSIDE RECORDS SUMMARY | 2025-03-02 14:44 | XMS_ITS | Clinical Summary ---
Author Organization [facility] Address [address] [place] [address] Care Team Providers Care Roof Cement And Paint Maker Helper Name Role Phone No, Physician Unavailable Dear, [...] 08/06/2022 Assessment & Plan (08/06/2022 12:13 PM ADMINISTRATIVE PERSONAL ASSISTANT): Chronic, worsening - Refer to vascular surgery [...] 04/17/2022 Assessment & Plan (11/13/2022 2:04 PM ADMINISTRATIVE PERSONAL ASSISTANT): Chronic, R anterior tibial (12/12); unprovoked per [...] surgery Assessment & Plan (08/06/2022 12:10 PM ADMINISTRATIVE PERSONAL ASSISTANT): Chronic, R anterior tibial (12/12); unprovoked per [...] 04/17/2022 Assessment & Plan (08/06/2022 12:14 PM ADMINISTRATIVE PERSONAL ASSISTANT): Chronic Complications: CAD, HTN, Neuropathy A1c: 8.0 [...] 04/17/2022 Assessment & Plan (08/06/2022 12:20 PM ADMINISTRATIVE PERSONAL ASSISTANT): Chronic, controlled - lisinopril 2.5mg Assessment & [...] omeprazole 20mg 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 04/17/2022 Assessment & [...] Comments Blood Pressure 137/63 11/20/2022 4:30 PM ADMINISTRATIVE PERSONAL ASSISTANT Pulse 65 11/20/2022 4:55 PM ADMINISTRATIVE PERSONAL ASSISTANT Temperature 36 C (96.8 F) 11/20/2022 10:41 AM ADMINISTRATIVE PERSONAL ASSISTANT Respiratory Rate 18 11/20/2022 10:41 AM ADMINISTRATIVE PERSONAL ASSISTANT Oxygen Saturation 100% 11/20/2022 4:55 PM ADMINISTRATIVE PERSONAL ASSISTANT Inhaled Oxygen Concentration - - Weight 104.8 kg (231 lb) 11/20/2022 10:41 AM ADMINISTRATIVE PERSONAL ASSISTANT Height 177.8 cm (5' 10) 11/13/2022 1:42 PM ADMINISTRATIVE PERSONAL ASSISTANT Body Mass Index 33.15 11/13/2022 1:42 PM ADMINISTRATIVE PERSONAL ASSISTANT Plan of Treatment Health Maintenance Due Date [...] Diagnosis Comments EGFR STAT 11/20/2022 3:11 PM ADMINISTRATIVE PERSONAL ASSISTANT HEMOGLOBIN A1C Routine 11/13/2022 2:20 PM ADMINISTRATIVE PERSONAL ASSISTANT 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, without long-term current use of insulin (HCC) HEPATITIS C RNA, QUANTITATIVE, PCR Routine 05/08/2022 10:08 AM CDT Need for hepatitis C screening test LIPID PANEL Routine 04/17/2022 9:43 AM CDT Coronary artery disease involving little traverse coronary artery of little traverse heart without angina pectoris ALBUMIN CREATININE RATIO, URINE Routine 04/17/2022 9:43 AM CDT 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 73 m2 [facility] Comment: Interpretive Data Reference Interval Normal >/= [...] last reviewed 2021. Blood 11/20/2022 3:11 PM ADMINISTRATIVE PERSONAL ASSISTANT 11/20/2022 3:16 PM ADMINISTRATIVE PERSONAL ASSISTANT us Abraham Coello MD LAB BLOOD ORDERABLES Fi nal Result [facility] [address] [facility] Department [place] [address] * (ABNORMAL) Hemoglobin A1c (11/13/2022 2:20 PM ADMINISTRATIVE PERSONAL ASSISTANT) Hgb A1C 8.6(H) 4.0 - 5.6 % [facility] Estimated Average Glucose 200 mg/dL [facility] Comment: The ADA recommends reporting an estimated Average Glucose (eAG) with all Hemoglobin A1c results using the equation derived from a study of 507 normal and diabetic adults. Minority populations were underrepresented and children were not included. (Diabetes Care 31:5868-1404, 2008). The eAG is not equivalent to a fasting glucose. Blood 11/13/2022 2:20 PM ADMINISTRATIVE PERSONAL ASSISTANT 11/13/2022 2:41 PM ADMINISTRATIVE PERSONAL ASSISTANT Campbell Bullard Dear DO LAB BLOOD ORDERABLES Fin al Result Performing Organization Address City/[facility]/ZIP Co de Phone Number [facility] [address] [facility] [place] [address] * Hepatitis C (HCV) RNA PCR, quantitative (05/08/2022 10:08 AM CDT) Pathologist [facility] HCV RNA IU/mL HCV Not Detected IU/mL [...] 8:17 AM CDT Performed at: 01 - [address] [id number] Manager Commercial Real Estate: Jamar Cooper MD, Phone: [phone] Campbell Bullard Dear DO LAB MICROBIOLOGY - [...] - 04/18/2022 10:10 AM CDT Performed at: [address] [id number] Manager Commercial Real Estate: Thad Peacock PhD, Phone: [phone] Campbell Bullard Dear DO LAB URINE ORDERABLES Fin al Result Performing Organization Address [facility] de Phone Number [facility] - 01 * Lipid panel (04/17/2022 9:43 AM CDT) Pathologist [facility] Cholesterol 108 100 - 199 mg/dL [facility] - 01 Triglycerides 81 0 - 149 mg/dL [facility] - 01 HDL Cholesterol 42 >39 mg/dL [facility] - 01 VLDL 16 5 - 40 mg/dL [facility] - 01 LDL, calculated 50 0 - 99 mg/dL [facility] - 01 Blood specimen (specimen) 04/17/2022 9:43 AM CDT 04/17/2022 Narrative [facility] - 04/18/2022 7:10 AM CDT Performed at: [address] [id number] Manager Commercial Real Estate: Thad Peacock PhD, Phone: [phone] Campbell Bullard Dear DO LAB BLOOD ORDERABLES Fin al Result Performing Organization Address [facility] de Phone Number [facility] - 01 * Occult blood, fecal non neoplasm screening (11/22/2017 11:15 AM ADMINISTRATIVE PERSONAL ASSISTANT) [facility] Collection date , [id number] [facility] Collection time 1, feces 1,115 [facility] Occult blood, fecal Negative Negative [facility] Stool 11/22/2017 11:1 5 AM ADMINISTRATIVE PERSONAL ASSISTANT 11/22/2017 1:19 PM ADMINISTRATIVE PERSONAL ASSISTANT Narrative [facility] - 11/22/2017 2:38 PM ADMINISTRATIVE PERSONAL ASSISTANT Hakeem Muro DO LAB BODY FLUIDS AND STOOLS ORDERABLES Final Result [facility] [address] [facility] Department [place] [address] from Last 3 Months or Most Recently Relevant to Health Maintenance Insurance [employer] [facility] DUAL COMPLETE [address] [place] [address] [facility] MEDICARE ADVANTAGE Care Teams Roof Cement And Paint Maker Helper Relationship Specialty Start Date End Date Dear, Campbell Bullard DO PCP - General Family Medicine 04/13/22 No, Physician 12/21/16
--- OUTSIDE RECORDS SUMMARY | 2025-03-02 14:44 | XMS_ITS | Encounter Summary ---
Author Organization [facility] Address [address] [place] [address] Care Team Providers Care Six Pack Loader Operator Name Role Phone DearCampbell DO Primary Care Provider + Encounter Details Date Type Department Care Team (Late st Contact Info) Description 07/09/2002 Outpatient Historical [facility] Internal Medicine [place] [address] [place] [phone] Reg Katz MD Social History Tobacco Use Types Packs/Day Years Used Date Smoking Tobacco: Never Assessed Sex and Gender Information Value Date Recorded Sex Assigned at Not on file Legal Sex Male 5:24 AM TAX ACCOUNTING ASSISTANT Gender Identity Not on file Sexual Orientation Not on file documented as of this encounter Plan of Treatment Not on file documented as of this encounter Visit Diagnoses Not on filedocumented in this encounter Care Teams Six Pack Loader Operator Relationship Specialty Start Date End Date DearCampbell DO [address] [place] [address] PCP - General Family Practice 07/09/22 documented as of this encounter
--- OUTSIDE RECORDS SUMMARY | 2025-03-02 14:44 | XMS_ITS | Encounter Summary ---
Author Organization [facility] Address [address] [place] [address] Care Team Providers Care Tour Conductor Name Role Phone DearCampbell DO Primary Care Provider + Encounter Details Date Type Department Care Team (Late st Contact Info) Description 04/07/2001 Outpatient Historical [facility] Internal Medicine [place] [address] [place] [phone] Reg Katz MD Social History Tobacco Use Types Packs/Day Years Used Date Smoking Tobacco: Never Assessed Sex and Gender Information Value Date Recorded Sex Assigned at Not on file Legal Sex Male 5:24 AM HOSPITAL PLAN ADMINISTRATOR Gender Identity Not on file Sexual Orientation Not on file documented as of this encounter Plan of Treatment Not on file documented as of this encounter Visit Diagnoses Not on filedocumented in this encounter Care Teams Tour Conductor Relationship Specialty Start Date End Date DearCampbell DO [address] [place] [address] PCP - General Family Practice 07/09/22 documented as of this encounter
--- OUTSIDE RECORDS SUMMARY | 2025-03-02 14:44 | XMS_ITS ---
Author Organization [facility] Address [address] [facility] [address] [facility] [place] [address] Care Team Providers Care Pack Press Operator Name Role Phone Alana Avilaerjit Unavailable [phone] Problems Problem Type SNOMED Code ICD Code Onset Dates Problem Status W/U Status Risk Notes Problem Stage 3 chronic kidney disease (N18.30) Active confirmed Problem Diabetic renal disease (408342149) Type 2 diabetes mellitus with diabetic chronic kidney disease (E11.22) Active confirmed Problem Essential hypertension (87157728) Essential hypertension (I10) Active confirmed Problem Hyperlipidemia (31211509) Hyperlipidemia, unspecified (E78.5) Active confirmed Encounters Encounter Location Date Provider Diagnosis [place] [facility] [address] [facility] [address] [place] [address] 09/09/2024 Melvin Avila Stage 3 chronic kidn [...] Of Treatment No Information Progress Notes * MARY GRACE LAUDOB: [birth year] (79 yo M)Acc No.[id number]:09/09/2024 Progress Notes Patient: MARY GRACE SINGH Provider: Belkys GARCIA MD, F.A.C.P, F.A.S.N. :1945 A ge:79 Y S ex:Male Date:09/09/2024 Address:[address] [place] [address] Subjective: * Chief Complaints: * * Medical History: Objective: * Vitals: Assessment: * Assessment: 1. S tage 3 chronic kidney disease - N18.30 (Primary) 2 . T ype 2 diabetes mellitus with diabetic chronic kidney disease - E11.22 3 . E ssential hypertension - I10 4 . H yperlipidemia, unspecified - E78.5 Plan: * Treatment: * Billing Information: * Visit Code: 41976 Office Visit, New Pt., Level 5. * Procedure Codes: * Electronic signature of Ora Avila MD on 03/02/2025 at 02:44 PM CDT Sign off status: Pending * Provider: Belkys GARCIA MD, F.A.C.P, F.A.S.N. Date: 11/10/2023 Generated for Printing/Faxing/eTransmitting on: 0 03/02/2025 02:44 PM CDT
--- OUTSIDE RECORDS SUMMARY | 2025-03-02 14:44 | XMS_ITS | Encounter Summary ---
Author Organization [facility] Address [address] [place] [address] Care Team Providers Care Chips Screen Tender Name Role Phone Abraham Cohn DO Primary Care Provider + Unknown, Provider Primary Care Provider Unavaila ble Encounter Details Date Type Department Care Team (Late st Contact Info) Description 01/05/2021 [facility] Outpatient Visit [facility] Orthopedics - Radiology [address] [place] [address] [place] [address] Document, Scanned Social History Tobacco Use Types Packs/Day Years Used Date Smoking Tobacco: Former Smokeless Tobacco: Never Alcohol Use Standard Drinks/Week Comments No 0 (1 standard drink = 0.6 oz pur e alcohol) Sex and Gender Information Value Date Recorded Sex Assigned at Not on file Legal Sex Male 5:27 AM ACCT EXEC Gender Identity Not on file Sexual Orientation [...] on filedocumented in this encounter Care Teams Chips Screen Tender Relationship Specialty Start Date End Date Abraham Cohn DO [address] [place] [address] PCP - General Family Medicine 09/06/20 03/03/23 Unknown, Provider PCP - General 02/28/24 documented as of this encounter
--- OUTSIDE RECORDS SUMMARY | 2025-03-02 14:44 | XMS_ITS | Referral Summary ---
Author Organization [facility] er Address [address] [place] [address] Care Team Providers Care Clinique Counter Manager Name Role Phone No, Physician Unavailable [...] 08/06/2022 Assessment & Plan (08/06/2022 12:13 PM CRUSHER W[employer] GROUND MICA): Chronic, worsening - Refer to vascular surgery [...] 04/17/2022 Assessment & Plan (11/13/2022 2:04 PM [employer] M[employer]): Chronic, R anterior tibial (12/12); unprovoked per [...] surgery Assessment & Plan (08/06/2022 12:10 PM [employer] MICA): Chronic, R anterior tibial (12/12); unprovoked per [...] 04/17/2022 Assessment & Plan (08/06/2022 12:14 PM [employer] MICA): Chronic Complications: CAD, HTN, Neuropathy A1c: 8.0 [...] 04/17/2022 Assessment & Plan (08/06/2022 12:20 PM [employer] MICA): Chronic, controlled - lisinopril 2.5mg Assessment & [...] omeprazole 20mg Coronary artery disease invo lving sioux coronary artery of sioux heart without angina pectoris 04/17/2022 Assessment & [...] Comments Blood Pressure 137/63 11/20/2022 4:30 PM [employer] Pulse 65 11/20/2022 4:55 PM [employer] Temperature 36 C (96.8 F) 11/20/2022 10:41 AM [employer] Respiratory Rate 18 11/20/2022 10:41 AM [employer] Oxygen Saturation 100% 11/20/2022 4:55 PM [employer] Inhaled Oxygen Concentration - - Weight 104.8 kg (231 lb) 11/20/2022 10:41 AM [employer] Height 177.8 cm (5' 10) 11/13/2022 1:42 PM [employer] Body Mass Index 33.15 11/13/2022 1:42 PM [employer] Plan of Treatment Not on file Procedures Procedure Name Priority Date/Time Associated Diagnosis Comments EGFR STAT 11/20/2022 3:11 PM [employer] [facility] HEMOGLOBIN A1C Routine 11/13/2022 2:20 PM [employer] 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, without long-term current use of insulin (HCC) HEPATITIS C RNA, QUANTITATIVE, PCR Routine 05/08/2022 10:08 AM CDT Need for hepatitis C screening test LIPID PANEL Routine 04/17/2022 9:43 AM CDT Coronary artery disease involving sioux coronary artery of sioux heart without angina pectoris ALBUMIN CREATININE RATIO, URINE Routine 04/17/2022 9:43 AM CDT 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 73 m2 [facility] Comment: Interpretive Data Reference Interval Normal [...] last reviewed 2021. Blood 11/20/2022 3:11 PM [employer] 11/20/2022 3:16 PM [employer] us Abraham Coello MD LAB BLOOD ORDERABLES Fi nal Result [facility] [address] [place] [address] * (ABNORMAL) Hemoglobin A1c (11/13/2022 2:20 PM [employer] MICA) [facility] Hgb A1C 8.6(H) 4.0 - 5.6 % [facility] Estimated Average Glucose 200 mg/dL [facility] Comment: The ADA recommends reporting an estimated Average Glucose (eAG) with all Hemoglobin A1c results using the equation derived from a study of 507 normal and diabetic adults. Minority populations were underrepresented and children were not included. (Diabetes Care 31:5744-0439, 2008). The eAG is not equivalent to a fasting glucose. Blood 11/13/2022 2:20 PM [employer] 11/13/2022 2:41 PM [employer] Campbell Bullard Dear DO LAB BLOOD ORDERABLES Fin al Result Performing Organization Address [facility] Phone Number [facility] [address] [place] [address] * Hepatitis C (HCV) RNA PCR, quantitative (05/08/2022 10:08 AM CDT) [facility] HCV RNA IU/mL HCV Not Detected IU/mL [...] - 05/10/2022 8:17 AM CDT Performed at: [address] [place] [id number] Automotive Warranty Administrator: Jamar Cooper MD, Phone: [phone] Campbell Bullard Dear DO LAB MICROBIOLOGY - [...] - 04/18/2022 10:10 AM CDT Performed at: [address] [place], [place] [id number] Automotive Warranty Administrator: Thad Peacock PhD, Phone: [phone] Campbell Bullard Dear DO LAB URINE ORDERABLES [...] - 04/18/2022 7:10 AM CDT Performed at: [address] [place] [id number] Automotive Warranty Administrator: Thad Peacock PhD, Phone: [phone] Campbell Bullard Dear DO LAB BLOOD ORDERABLES Fin al Result [facility] - 01 * Occult blood, fecal non neoplasm screening (11/22/2017 11:15 AM [employer]) Collection date , feces [id number] [facility] Collection time 1, feces 1,115 [facility] Occult blood, fecal Negative Negative [facility] Stool 11/22/2017 11:1 5 AM [employer] [facility] 11/22/2017 1:19 PM [employer] Narrative [facility] - 11/22/2017 2:38 PM [employer] Hakeem Muro DO LAB BODY FLUIDS AND STOOLS ORDERABLES Final Result Performing Organization Address City/[facility]/ZIP Co de Phone Number [facility] [address] [facility] Department [place] [address] from Last 3 Months or Most Recently Relevant to Health Maintenance Insurance [place] [employer] [facility] DUAL COMPLETE [id number] [facility] MEDICARE Address: [address] [place] [address] [employer] [facility] MEDICARE ADVANTAGE [facility] MEDICARE Address: [address] [address] [place] [address] Care Teams Clinique Counter Manager Relationship Specialty Start Date End Date Dear, Campbell Bullard DO PCP - General Family Medicine 04/13/22 No, Physician 12/21/16
--- OUTSIDE RECORDS SUMMARY | 2025-03-02 14:45 | XMS_ITS | Encounter Summary ---
[facility] Organization [facility] Address 

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
--- OUTSIDE RECORDS SUMMARY | 2025-03-02 14:45 | XMS_ITS | Patient Health Record ---
Author Organization [facility] Address [address] [facility] [address] [facility] [address] [place] [address] Care Team Providers Care Brim Plater Name Role Phone Alana Avilaerjit Unavailable [phone] Reason For Referral No Information Problems Problem Type SNOMED Code ICD Code Onset Dates Problem Status W/U Status Risk Notes Problem Diabetic renal disease (717415230) Type 2 diabetes mellitus with diabetic chronic kidney disease (E11.22) Active confirmed Problem Hyperlipidemia (35213027) Hyperlipidemia, unspecified (E78.5) Active confirmed Problem Essential hypertension (09091253) Essential hypertension (I10) Active confirmed Problem Chronic kidney disease stage 3 (disorder) (870497048) Stage 3 chronic kidney disease (N18.30) Active confirmed Encounters Encounter Location Date Provider Diagnosis [place] [facility] [address] [facility] [address] [place] [address] 09/09/2024 Melvin Avila Stage 3 chronic kidn [...]
--- OUTSIDE RECORDS SUMMARY | 2025-03-02 14:45 | XMS_ITS | CONTINUITY OF CARE DOCUMENT ---
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 Zakiya Banda DM - type 2 active Jessy Sofia MD HTN essential active Jessy Sofia MD Osteoarthritis active Jessy Sofia MD Hypercoagulable state active Jessy hunter MD 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 Jessy Sofia MD DVT active eJssy Sofia MD Syncope active Jessy Sofia MD Hematuria active Jessy Sofia MD Bradycardia active Campbell Soto Bifascicular block active Campbell [place] Cardiology examination active Jessy mckeon MD ENCOUNTERS Date Type Provider Location Encounter Diag nosis - In-person encounter Office Visit Jessy Sofia MD [facility] Cardiology examination - In-person encounter Office Visit Braxton Gee MD [facility] - In-person encounter Office Visit Braxton Gee MD [facility] - In-person encounter Office Visit Braxton Gee MD [facility] BradycardiaBifascicular block - In-person encounter Office Visit Jessy Sofia MD [facility] SyncopeHematuria - In-person encounter Office Visit Jessy Sofia MD [facility] DM - type 2HTN essentialOsteoarthritisHypercoagulable stateOld myocardial infarctionDVT VITAL SIGNS Date Observation Value Provider Body Mass Index (Ratio) 29.55 kg/m2 Ria Sofia MD blood pressure, diastolic 77 mm[Hg] Armida desai [facility] blood pressure, systolic 132 mm[Hg] Fiona lu [facility] oxygen saturation, oximetry 97 % Conchsi [facility] pulse rate 60 /min Conchis [facility] blood pressure, cuff size regular Armida desai [facility] weight E&M 224 [lb_av] Conchis [facility] height E&M 73 [in_i] [facility] Body Mass Index (Ratio) 27.70 kg/m2 Jacek [...] MD blood pressure, diastolic 76 mm[Hg] [facility], systolic 150 mm[Hg] [facility] oxygen saturation, oximetry 94 % [facility] pulse rate 74 /min [facility] respiratory rate E&M 12 /min [facility] weight E&M 208 [lb_av] [facility] height E&M 73 [in_i] [facility] blood pressure, cuff size regular [facility] Body Mass Index (Ratio) 27.97 kg/m2 Karel Soto oxygen saturation, oximetry 98 % Madison Moreland pulse rate 57 /min Madison Carleen [facility] blood pressure, diastolic 64 mm[Hg] Garry Ferris blood pressure, systolic 135 mm[Hg] Dangelo ri Aniceto weight E&M 212 [lb_av] Madison Carleen [facility] height E&M 73 [in_i] Madison Carleen [facility] Body Mass Index (Ratio) 26.65 kg/m2 Ria Sofia MD blood pressure, diastolic 65 mm[Hg] [facility] blood pressure, systolic 120 mm[Hg] [facility] oxygen saturation, oximetry 98 % [facility] pulse rate 68 /min [facility] respiratory rate E&M 14 /min [facility] weight E&M 202 [lb_av] [facility] height E&M 73 [in_i] [facility] blood pressure, cuff size regular An iyah Iraheta Body Mass Index (Ratio) 29.42 kg/m2 Karel as Charles blood pressure, diastolic 75 mm[Hg] Li nkLogic blood pressure, systolic 130 mm[Hg] Danielle kLogic blood pressure, cuff size regular Fa gennaro Tapia blood pressure, diastolic 75 mm[Hg] Fa gennaro [place] blood pressure, systolic 130 mm[Hg] Addison [facility] pulse rate 86 /min Elisa [place] oxygen saturation, oximetry 96 % [facility] respiratory rate E&M 16 /min Elisa Bernal iller weight E&M 223 [lb_av] [facility] height E&M 73 [in_i] [facility] ALLERGIES Allergy Name Onset Date Reaction Criticality [...] Payer name Policy type / Coverage type [place] red republican ID [employer] MEDICARE [employer]VANTAGE ST 0 003 (HMO POS) Medicare [id number] [facility] Medicaid 4 [id number] ADVANCE DIRECTIVES Name Date DISCUSSED - NO DECISION MADE TREATMENT PLAN Date Name Performer Cardiology: Annie Jhaveri. Had hematuria. Was evaluated at [facility] and has chronic acosta. Jessy Sofia MD Cardiology: Annie Jhaveri. Had hematuria. Was evaluated at [facility] and has chronic acosta. S ays that he was told he has sticky blood in the past, currently on eliquis T his visit has been a part of the consistent, comprehensive, and ongoing management of the chronic medical condition(s) listed above for the patient. Jessy Sofia MD Cardiology: Annie Jhaveri. Had hematuria. Was evaluated at [facility] and has chronic acosta. Jessy Sofia MD [...] n Shakila. Had hematuria. Was evaluated at [facility] and has chronic acosta. S ays that [...] n Eliquis. Had hematuria. Was evaluated at [facility] and has chronic acosta. Campbell Soto Cardiology: H is updated medication list for this problem includes: Trulicity 1.5 Mg/0.5 Ml Pen Injector (Dulaglutide) Synjardy Xr 5-1,000 Mg Tablet, Ir - Er, Biphasic 24hr (Empagliflozin-metformin) Lisinopril 2.5 Mg Tablet (Lisinopril) Metformin 500 Mg Tablet Extended Release 24 Hr (Metformin) Jessy Sofia MD Cardiology: a bnormal EKG suggestive of old inferior wall; [place] , had stents in [id number], SC in , done at [place] on asa 81mg H is updated medication list for this problem includes: Lisinopril 2.5 Mg Tablet (Lisinopril) Jessy Sofia MD Cardiology:On Eliqui s. Had hematuria. Was evaluated at [facility] and has chronic acosta. S ays that he was told he has sticky blood in the past, currently on eliquis T his visit has been a part of the consistent, comprehensive, and ongoing management of the chronic medical condition(s) listed above for the patient. Jessy Sofia MD Cardiology:On Eliqui s. Had hematuria. Was evaluated at [place] and has chronic acosta. Jessy Sofia MD Cardiology:On Eliqui s. Had hematuria. Was evaluated at [place] and has chronic acosta. Jessy Sofia MD [...] Cardiology:abnormal EKG suggestive of old inferior wall; [place] , had stents in [id number], SC in , done at [place] on asa 81mg H is updated medication [...]
--- OUTSIDE RECORDS SUMMARY | 2025-03-02 14:45 | XMS_ITS | Encounter Summary ---
Author Organization [facility] Address 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
--- OUTSIDE RECORDS SUMMARY | 2025-03-02 14:45 | XMS_ITS | Encounter Summary ---
Author Organization [facility] Address 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
--- OUTSIDE RECORDS SUMMARY | 2025-03-02 14:45 | XMS_ITS | Encounter Summary ---
Author Organization [facility] Address [address] [place] [address] Care Team Providers Care Group Home Worker Name Role Phone Unknown, Provider Primary Care Provider Unavaila ble Reason for Visit * Reason Onset Date Comments Med Question 06/18/2024 Encounter Details Date Type Department Care Team (Late st Contact Info) Description 06/18/2024 Telephone [facility] - Centralized Scheduling [address] [place] [address] Thao Neri MD [address] [place] [address] Med Question Social History Tobacco Use Types Packs/Day Years Used Date Smoking Tobacco: Former Smokeless Tobacco: Never Alcohol Use Standard Drinks/Week Comments No 0 (1 standard drink = 0.6 oz pur e alcohol) Sex and Gender Information Value Date Recorded Sex Assigned at Not on file 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
[2025-03-02 14:53] LABS: Appearance Urine Cloudy (Clear); Color Urine Yellow (Yellow); Protein Urine 2+ mg/dL (Negative); Specific Grav Ur 1.017 (1.001-1.035); pH Urine 6.5 (5.0-9.0)
[2025-03-02 14:54] LABS: Add Urine Microscopic? YES; Bacteria Urine 4+ /hpf; Bilirubin Urine Negative (Negative); Blood Urine 3+ (Negative); Glucose Urine UA Negative (Negative); Ketones Urine Negative (Negative); Leukocyte Esterase Ur 3+ LEU/UL (Negative); Need Manual Microscopic Reviewed; Nitrate Urine Positive (Negative); RBC Urine >100 /hpf (0-2); Squamous Epithelial Cell Urine None Seen /hpf (Few); WBC Urine >100 /hpf (0-3)
--- NOTE | 2025-03-02 17:20 | PC.NURSE ---
Dinner tray ordered for pt.
[2025-03-02] MEDS: SODIUM CHLORIDE 0.9% IV 1,000 ML 125 ML IV CONT (17:30)
--- NOTE | 2025-03-02 18:16 | ADMGEN ---
This patient, Cosme Javier, was admitted to [facility] Surg Room 301-01. Patient/family oriented to hospital policies and general routines including ID bracelet, bed and alarms, visiting hours, pain management, procedures, bathroom and other care routines, personal items, smoking policy, room service/diet, and visiting hours. Information on how to activate the Rapid Response Team has been discussed. Patient/Family are encouraged to report perceived risks to care and to ask questions if they do not understand what they are told or what they should do.
--- NOTE | 2025-03-02 18:28 | PM.IMHP ---
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 History of heart attack CAD (coronary artery disease) Diabetic neuropathy TIA (transient ischemic attack) x8 VTE (venous thromboembolism) History of diabetes mellitus History of hypertension Surgical History Surgical History History of transurethral resection of bladder tumor (TURBT) Family History Family History Father Diabetes mellitus Sibling Diabetes mellitus Mother Congestive heart disease Social History Social History Smoking packs per day: 1 Smoking cigarettes per day: 20.0 Years smoked: 40 Smoking pack-years: 40.00 Smoking status: Former smoker Tobacco type: cigarettes Smoking end date: 03/23/95 Alcohol intake: former Alcohol use details: QUIT HEAVY DRINKER PRIOR Substance use: former Substance use type: does not use 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D Difficulty w/ Childcare or Family Care: No Living arrangements: with family Additional living arrangements comments: SON Spiritual care concerns: No Meds Home Medications and Allergies Home Medications ?Medication ?Instructions ?Recorded ?Confirmed ?Type apixaban 5 mg tablet (Eliquis) 5 mg PO BID 01/13/24 03/02/25 History aspirin 81 mg tablet,delayed 81 mg PO DAILY 01/13/24 03/02/25 History release (Adult Low Dose Aspirin) atorvastatin 80 mg tablet 40 mg PO DAILY 01/13/24 03/02/25 History dulaglutide 1.5 mg/0.5 mL 1.5 mg subcut WEEKLY 01/13/24 03/02/25 History subcutaneous pen injector (Trulicity) mirabegron 50 mg tablet,extended 50 mg PO DAILY 01/13/24 03/02/25 History release 24 hr (Myrbetriq) omeprazole 20 mg capsule,delayed 20 mg PO BID 01/13/24 03/02/25 History release tamsulosin 0.4 mg capsule 0.4 mg PO DAILY 01/13/24 03/02/25 History gabapentin 300 mg capsule 300 mg PO TID 01/29/24 03/02/25 History metformin 500 mg tablet,extended 500 mg PO BID 03/02/25 03/02/25 History release 24 hr Allergies Allergy/AdvReac Type Severity Reaction Status Date / Time iodine Allergy Rash Verified 03/02/25 18:25 Penicillins Allergy Swelling Verified 03/02/25 18:25 amitriptyline AdvReac BECOMES Verified 03/02/25 18:25 VIOLENT/COMBATIVE codeine AdvReac avoids Verified 03/02/25 18:25 -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 AdvReac Nausea and Verified 03/02/25 18:25 Vomiting Vital Signs Vital Signs - 24 hr 03/02/25 13:28 03/02/25 13:35 03/02/25 13:35 Temperature 36.4 C Pulse Rate 99 99 100 Respiratory Rate 16 Blood Pressure 140/77 140/77 122/60 Pulse Oximetry 96 Oxygen Delivery Room Air 03/02/25 13:36 03/02/25 15:00 Temperature Pulse Rate 110 H 89 Respiratory Rate 18 Blood Pressure 113/70 133/71 Pulse Oximetry 96 Oxygen Delivery H&P: Results Labs Labs: Short CBC 03/02/25 Range/Units 13:36 WBC 8.6 (4.5-10.0) K/mm3 Hgb 11.9 L (14.0-18.0) g/dL Hct 37.0 L (42.0-52.0) % Plt Count 192 (150-375) k/mm3 BMP 03/02/25 13:36 Sodium 135 L Potassium 4.3 Chloride 103 Carbon Dioxide 23 BUN 25 H Creatinine 1.02 Glucose 184 H Calcium 9.3 Cardiac Enzymes 03/02/25 Range/Units 13:36 Troponin I 0.016 (0.000-0.034) ng/mL Liver Function 03/02/25 Range/Units 13:36 Total Bilirubin 0.7 (0.2-1.3) mg/dL AST 30 (17-59) U/L ALT 25 (6-50) U/L Alkaline Phosphatase 122 (38-126) U/L Albumin 4.2 (3.5-5.1) g/dL Urine 03/02/25 Range/Units 14:23 Urine Color Yellow (Yellow) Urine Appearance Cloudy H (Clear) Urine pH 6.5 (5.0-9.0) Ur Specific [place] 1.017 (1.001-1.035) Urine Protein 2+ H (Negative) mg/dL Urine Glucose (UA) Negative (Negative) mg/dL
[2025-03-02] MEDS: cefTRIAXone 2 GM/NS 100 ML 2 GM/100 ML BAG IVPB (18:51)
[2025-03-02 19:48] LABS: Troponin I 0.086 ng/mL (0.000-0.034)
--- NOTE | 2025-03-02 19:55 | ECG_ITS ---
Test Date: 2025-03-02 20:32:18 Measurements Intervals [place] Rate: 70 P: 228 [place]: 250 QRS: 69 QRSD: 167 T: -46 QT: 433 QTc: 467 Interpretive Statements ELECTRONIC ATRIAL PACEMAKER ELECTRONIC VENTRICULAR PACEMAKER NO FURTHER INTERPRETATION IS POSSIBLE ATYPICAL ECG Compared to ECG 03/02/2025 13:33:08 No significant changes Electronically Signed On 03-03-2025 06:07:52 CDT by Kenny Lacey D.O.
[2025-03-02 20:26] LABS: Hemoglobin A1C 6.4 % (<5.7)
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
[2025-03-02] MEDS: GABAPENTIN 300 MG CAPSULE PO (21:20)
[2025-03-02] MEDS: ASPIRIN 81 MG CHEWABLE TABLET 324 MG PO (21:20)
[2025-03-02] MEDS: PANTOPRAZOLE SOD SESQUIHYDRATE 20 MG TAB PO (21:20)
[2025-03-02] MEDS: APIXABAN 5 MG TABLET PO (21:20)
[2025-03-02 21:21] LABS: Glucose Point of Care 174 mg/dl (65-105)
[2025-03-02 22:53] LABS: Troponin I 0.081 ng/mL (0.000-0.034)
[2025-03-02] MEDS: HYDROcodone/acetaminophen (*CRX) 5-325 MG TABLET 1 TAB PO (22:59)
[2025-03-03] VITALS (11 sets, daily range): BP systolic 122–148; BP diastolic 51–72; PULSE 60–88; RESP 16–24; TEMP 35.9–36.6; O2SAT 95–100; BMI 29.5
--- NOTE | 2025-03-03 | ECHO_ITS ---
Patient Info Name: Cosme Parsons Age: 79 years : 1945 Gender: Male Ht: 72 in Wt: 217 lbs BSA: 2.26 m2 HR: 70 bpm BP: 125 / 55 mmHg Heart Rhythm: Paced Technical Quality: Fair Exam Date: 03/03/2025 1:55 PM Patient Status: O Admit Date: 03/02/2025 Exam Type: CA echo dop color flow w con Complete two-dimensional, color flow and Doppler transthoracic echocardiogram is performed with contrast to opacify the left ventricle and to improve the deliniation of the left ventricle endocardial borders. Staff Referring Physician: Ling Aquino DO Warehouse Sorter: Shilpa Shelton Attending Provider: Tameka Lyn Contrast/Agitated Saline Contrast/Ag. Saline: Definity Amount: 2.00 ml Administered By: Shilpa Shelton Existing IV Access: Yes IV Access Condition: patent with no signs of infiltration Summary 1. Left ventricular chamber dimension is normal. 2. Left ventricular systolic function is normal, estimated at 65-70. 3. There is mildly increased left ventricular wall thickness. 4. Left ventricular septal wall motion is abnormal with septal motion related to bundle branch block. 5. The left ventricular diastolic function is grade I diastolic dysfunction. 6. Left atrial chamber dimension is mildly enlarged. 7. There is moderate aortic valve sclerosis. 8. There is mild aortic valve calcification. 9. There is mild mitral valve regurgitation. 10. There is mild tricuspid valve regurgitation. Left Ventricle Left ventricular chamber dimension is normal. Left ventricular systolic function is normal, estimated at 65-70. There is mildly increased left ventricular wall thickness. Left ventricular septal wall motion is abnormal with septal motion related to bundle branch block. The left ventricular diastolic function is grade I diastolic dysfunction. Right Ventricle Right ventricular chamber dimension is normal. Right ventricular systolic function is normal. Linear artifact in right ventricle suggestive of catheter(s), pacemaker lead(s), or ICD lead(s). Left Atria Left atrial chamber dimension is mildly enlarged. Right Atria Right atrial chamber dimension is normal. Atrial Septum Intact interatrial septum visualized by color flow imaging. Aortic Valve The aortic valve is trileaflet. There is moderate aortic valve sclerosis. There is no aortic valve stenosis. There is trace aortic valve regurgitation. There is mild aortic valve calcification. Pulmonic Valve The pulmonic valve is normal. There is no pulmonic valve stenosis. There is trace pulmonic regurgitation. Mitral Valve The mitral valve has thickened leaflets. There is no mitral valve stenosis. There is mild mitral valve regurgitation. Tricuspid Valve The tricuspid valve leaflets are normal. There is no significant tricuspid valve stenosis. There is mild tricuspid valve regurgitation. No pulmonary hypertension, estimated pulmonary arterial systolic pressure is 16 mmHg. Pericardium/Pleural The pericardium appears normal. There is no pericardial effusion. Inferior Vena Cava Normal inferior vena cava with <50% collapse upon inspiration consistent with normal right atrial pressure, 10 mmHg. Aorta The aortic root size at the sinus of Valsalva is normal. Left Ventricular Outflow Tract Name Value Normal LVOT 2D LVOT Diameter 1.9 cm LVOT Doppler LVOT Peak Velocity 87 cm/s LVOT Peak Gradient 3 mmHg LVOT Mean Gradient 2 mmHg LVOT VTI 20 cm LVOT VTI/AV VTI Ratio 0.7 LVOT Stroke Volume 54 ml LVOT CO 1.9 l/min LVOT CI 0.8 l/min/m2 Pulmonic Valve Name Value Normal PV Doppler PV Peak Velocity 109 cm/s PV Peak Gradient 5 mmHg Mitral Valve Name Value Normal MV Diastolic Function MV E Peak Velocity 79 cm/s MV A Peak Velocity 95 cm/s MV E/A 0.8 MV Decel Time (PW) 319 ms MV Annular TDI MV E/e' (Septal) 7.5 MV E/e' (Lateral) 5.2 MV E/e' (Average) 6.3 Tricuspid Valve Name Value Normal TV Regurgitation Doppler TR Peak Velocity 120 cm/s TR Peak Gradient 6 mmHg Estimated PAP/RSVP RA Pressure 10 mmHg <=5 PA Systolic Pressure 16 mmHg <36 RV Systolic Pressure 16 mmHg <36 TV Annular TDI TV Lateral Deborah s' Velocity 11.3 cm/s >=9.5 Aortic Valve Name Value Normal AV Doppler AV Peak Velocity 145 cm/s AV Peak Gradient 8 mmHg AV Mean Gradient 5 mmHg AV VTI 31 cm AV Area (Cont Eq VTI) 1.7 cm2 >=3.0 AV Area (Cont Eq Jeovany) 1.6 cm2 AV DI (Jeovany) 0.60 AV Regurgitation 2D LVOT Area 2.7 cm2 Ventricles Name Value Normal LV Dimensions 2D/MM IVS Diastolic Thickness (2D) 1.3 cm 0.6-1.0 LVID Diastole (2D) 4.7 cm 4.2-5.8 LVIW Diastolic Thickness (2D) 1.0 cm 0.6-1.0 LVID Systole (2D) 2.6 cm 2.5-4.0 LVOT Diameter 1.9 cm LV Mass (2D Cubed) 193.03 g 88.00-224.00 LV Mass Index (2D Cubed) 86 g/m2 49-115 Relative Wall Thickness (2D) 0.41 <=0.42 LV Fractional Shortening/Ejection Fraction 2D/MM LV Fractional Shortening (2D) 45 % 25-43 LV EF (2D [place]) 76 % LV Diastolic Volume (4C MOD) 114 ml LV EF (4C MOD) 64 % LV Diastolic Volume (2C MOD) 154 ml LV EF (2C MOD) 71 % LV Diastolic Volume (BP MOD) 138 ml 62-150 LV Diastolic Volume Index (BP MOD) 61 ml/m2 34-74 LV Systolic Volume (BP MOD) 42 ml 21-61 LV Systolic Volume Index (BP MOD) 19 ml/m2 11-31 LV EF (BP MOD) 69 % 52-72 LV Diastolic Length (4C) 9.4 cm LV Systolic Length (4C) 7.3 cm LV Stroke Volume (4C MOD) 74 ml Atria Name Value Normal LA Dimensions LA Volume (4C A-L) 73 ml LA Volume (BP A-L) 69 ml RA Dimensions RA Systolic [place] Length (4C) 4.7 cm 2.1-2.7 RA Area (4C) 17.2 cm2 <=18.0 Report Signatures
[2025-03-03] MEDS: SODIUM CHLORIDE 0.9% IV 1,000 ML 125 ML IV CONT ×2 (01:28→08:34)
[2025-03-03] MEDS: ACETAMINOPHEN 500 MG TABLET PO ×2 (07:25→20:33)
[2025-03-03 08:21] LABS: Glucose Point of Care 107 mg/dl (65-105)
[2025-03-03] MEDS: ASPIRIN 81 MG ENTERIC TABLET PO (08:30)
[2025-03-03] MEDS: APIXABAN 5 MG TABLET PO ×2 (08:30→20:34)
[2025-03-03] MEDS: GABAPENTIN 300 MG CAPSULE PO ×3 (08:30→20:33)
[2025-03-03] MEDS: ATORVASTATIN 40 MG TABLET PO (08:30)
[2025-03-03] MEDS: TAMSULOSIN HCL 0.4 MG CAPSULE PO (08:30)
[2025-03-03] MEDS: PANTOPRAZOLE SOD SESQUIHYDRATE 20 MG TAB PO ×2 (08:30→20:34)
[2025-03-03] MEDS: MIRABEGRON 50 MG ER TABLET PO (08:30)
[2025-03-03 11:42] LABS: Glucose Point of Care 163 mg/dl (65-105)
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
[2025-03-03] MEDS: PERFLUTREN LIPID MICROSPHERES 1.5 ML VIAL DILUTED TO 10 ML TOTAL VOLUME IV PUSH (14:30)
[2025-03-03] MEDS: MAGNESIUM SULFATE 3GM/D5W100ML 3 GM/100 ML BAG IVPB (14:36)
--- NOTE | 2025-03-03 14:37 | PM.IMPN ---
Progress Note: A&P Assessment and Plan (1) Syncope: Qualifiers: Syncope type: unspecified Qualified Code(s): R55 - Syncope and collapse Code(s): R55 - Syncope and collapse Status: Acute (2) Orthostatic hypotension: Code(s): I95.1 - Orthostatic hypotension Status: Acute (3) Elevated troponin: Code(s): R79.89 - Other specified abnormal findings of blood chemistry Status: Acute (4) UTI (urinary tract infection) due to urinary indwelling Omer catheter: Qualifiers: Encounter type: initial encounter Indwelling urinary catheter type: indwelling urethral catheter Qualified Code(s): T83.511A - Infection and inflammatory reaction due to indwelling urethral catheter, initial encounter; N39.0 - Urinary tract infection, site not specified Code(s): T83.511A - Infection and inflammatory reaction due to indwelling urethral catheter, initial encounter; N39.0 - Urinary tract infection, site not specified Status: Acute (5) Chronic anticoagulation: Code(s): Z79.01 - detention (current) use of anticoagulants Status: Acute (6) Pupil diameter unequal: Code(s): H57.02 - Anisocoria Status: Acute Plan Syncope likely vasovagal or orthostatic in nature. The patient does have significant drop in both systolic blood pressure and significant increase in heart rate with position changes. Does admit to decreased oral intake recently and slow progressive weight loss since his in February of 2023. He states that he just does not eat as well since he has moved in with his son. Patient received 1 L fluid bolus in the ER. Will continue normal saline at 125 mL an hour and re-evaluate orthostatic vital signs in a.m.. Patient had also been out in the sun for an extended amount of time in could of had heat syncope. He does have history of recent pacemaker placement. EKGs were reviewed demonstrated but atrium ventricular paced beats. Will obtain pacemaker interrogation in a.m.. Will continue to monitor patient on telemetry. The patient did have a slight increase in his troponin for between the 1st and 2nd troponin but between the 2nd and 3rd troponin is troponin profile was completely flat. Acute ischemic event is unlikely. Will resume patient's home aspirin, Eliquis and atorvastatin. The patient's urinalysis as abnormal the patient does not have fever or leukocytosis. He does state that his urine has changed in appearance recently and is more foul-smelling. His last urine culture last month grew out 50,000-100,000 Pluralibacter gergoviae which was pansensitive. Patient does have type 2 diabetes mellitus but his A1c is well controlled. Will hold his home metformin and will provide moderate dose sliding scale insulin Accu-Cheks a.c. HS and hypoglycemia protocol. Patient has unequal pupil diameter but both eyes are equally reactive. He has no acute symptoms and acute intercranial process ruled out with CT. Will monitor. patient presented with syncopal episode, patient pacemaker was interrogation reveal patient's maker needs to be evaluated by punch finisher and further recommendations to follow, upon arrival patient UA was suspicious for UTI, patient is being treated with ceftriaxone, will follow up urine culture and further recommendation to follow. will have PT/OT evaluate the patient and patient will benefit going to acute rehab. 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 The patient reports that he had been at the local [employer] out in the heat looking for an engine parts. He had been walking around for about 2 hours. He reported that he suddenly became lightheaded and profusely sweaty. The next thing he knew he had passed out. He denies any preceding chest pain shortness of breath or palpitations. He denied any nausea vomiting. He reports that for the last 2 months or so in his urine in his Omer catheter has smelled horrible. He denies it being any cloudy or than usual but it has been cloudy for the same amount of time that it is smelled bad. He he denies having any fevers or chills. He has been having normal bowel movements. He denies any recent hematuria. His Omer catheter was exchanged in the ER. He reports that he is having pain with movement of his left shoulder and left elbow. He reports that his pain is moderate in nature. He has severe pain in his back. He reports that the back pain is chronic and unchanged from baseline. He states that he landed on his left shoulder and elbow. The pain is worse with movement. He denies any chest pain. He does have history of coronary artery disease but had his last [place] and 2 cardiac stents placed about 20 years ago. He has slightly unequal pupils on exam but he denies any headache or vision changes. He had a CT in the ER that was negative for acute process. He does not know the has chronically unequal pupils are not. He does state that he has a cataract that is developing in his left eye. patient presented with syncopal episode, patient pacemaker was interrogation reveal patient's maker needs to be evaluated by punch finisher and further recommendations to follow, upon arrival patient UA was suspicious for UTI, patient is being treated with ceftriaxone, will follow up urine culture and further recommendation to follow. will have PT/OT evaluate the patient and patient will benefit going to acute rehab. Review of Systems Review of Systems: 12 systems were reviewed with pertinent positives and negatives per HPI. Except as documented in the HPI, all other systems were reviewed and are negative. Exam Narrative: Patient is comfortable, NAD HEENT: eyes are clear and none icteric LUNGS:CTA HEART: RR S1S2 ABD: BS+, Soft and nontender Lower extremities: no edema SKIN: nonjaundiced Neuro: grossly intact. Objective Data Vital Signs Vital Signs: Vital Signs - 24 hr 03/02/25 15:00 03/02/25 18:30 03/02/25 20:00 Temperature 36.2 C L Pulse Rate 89 85 80 Respiratory Rate 18 22 H Blood Pressure 133/71 151/61 H Pulse Oximetry 96 100 Oxygen Delivery Fraction of Inspired Oxygen 03/02/25 20:55 03/02/25 21:00 03/02/25 22:00 Temperature Pulse Rate 70 69 Respiratory Rate 18 Blood Pressure 126/65 115/67 Pulse Oximetry 97 100 Oxygen Delivery Room Air Fraction of Inspired Oxygen 21 03/03/25 00:00 03/03/25 03:39 03/03/25 04:08 Temperature 36.6 C Pulse Rate 77 80 69 Respiratory Rate 16 Blood Pressure 122/51 L Pulse Oximetry 97 Oxygen Delivery Fraction of Inspired Oxygen 03/03/25 08:00 03/03/25 08:00 03/03/25 08:00 Temperature 35.9 C L Pulse Rate 70 71 Respiratory Rate 18 Blood Pressure 123/72 Pulse Oximetry 97 100 Oxygen Delivery Room Air Fraction of Inspired Oxygen 21 03/03/25 08:46 03/03/25 08:46 03/03/25 12:00 Temperature Pulse Rate 70 Respiratory Rate Blood Pressure 122/64 125/55 L Pulse Oximetry Oxygen Delivery Fraction of Inspired Oxygen 03/03/25 14:00 Temperature 36.1 C L Pulse Rate 60 Respiratory Rate 18 Blood Pressure 136/56 L Pulse Oximetry 100 Oxygen Delivery Fraction of Inspired Oxygen Intake/Output Intake/Output: Intake & Output 02/28/25 03/01/25 03/02/25 03/03/25 23:59 23:59 23:59 23:59 Intake Total 1000 2613.3 Output Total 1999 Balance 1000 613.3 Meds/Results Medications: Active Medications Generic Name Dose Route Start Last Admin Trade Name Freq PRN Reason Stop Dose Admin Acetaminophen 500 mg 03/02/25 20:53 03/03/25 07:25 Acetaminophen 500 Mg Tablet PO 500 mg Q4H PRN Administration Mild Pain (1-3) or Fever Hydrocodone Bitart/Acetaminophen 1 tab 03/02/25 20:53 03/02/25 22:59 Hydrocodone/Acetaminophen (*Crx) 5-325 Mg Tablet PO 1 tab Q4H PRN Administration Pain Rated 4-10 Apixaban 5 mg 03/02/25 21:00 03/03/25 08:30 Apixaban 5 Mg Tablet PO 5 mg Q12HR KIMBERLYN Administration Aspirin 81 mg 03/03/25 09:00 03/03/25 08:30 Aspirin 81 Mg Enteric Tablet PO 81 mg DAILY KIMBERLYN Administration Atorvastatin Calcium 40 mg 03/03/25 09:00 03/03/25 08:30 Atorvastatin 40 Mg Tablet PO 40 mg DAILY KIMBERLYN Administration Dextrose 12.5 gm 03/02/25 19:32 Dextrose 50% 25 Gm/50 Ml Syringe IV PUSH PRN PRN Hypoglycemia Protocol Gabapentin 300 mg 03/02/25 21:00 03/03/25 08:30 Gabapentin 300 Mg Capsule PO 300 mg KIMBERLYN Administration Glucagon 1 mg 03/02/25 19:32 Glucagon For Inj 1 Mg Vial IM PRN PRN Hypoglycemia Protocol Glucose 15 gm 03/02/25 19:32 Glucose Oral Gel 15 Gm Of Glucse In 37.5 Gm Tube PO PRN PRN Hypoglycemia Protocol Ceftriaxone Sodium 2 gm in 100 mls @ 200 mls/hr 03/02/25 18:00 03/02/25 18:51 Rocephin 2 Gm/Ns 100 Ml IVPB 200 mls/hr Q24H KIMBERLYN Administration Dextrose 1,000 mls @ 100 mls/hr 03/02/25 19:32 Dextrose 5% 1,000 Ml IVPB PRN PRN Hypoglycemia Protocol Magnesium Sulfate/Dextrose 3 gm in 100 mls @ 33.333 mls/hr 03/03/25 13:28 Magnesium Sulfate 3gm/[id number] IVPB 03/03/25 16:27 ONCE ONE Insulin Aspart 3 - 6 units 03/03/25 08:00 03/03/25 11:53 Insulin Aspart (*Bkc) 100 Units/Ml SUB-Q Not Given TIDWM KIMBERLYN Protocol Mirabegron 50 mg 03/03/25 09:00 03/03/25 08:30 Mirabegron 50 Mg Er Tablet PO 50 mg DAILY KIMBERLYN Administration Pantoprazole Sodium 20 mg 03/02/25 21:00 03/03/25 08:30 Pantoprazole Sod Sesquihydrate 20 Mg Tab PO 20 mg Q12HR KIMBERLYN Administration Perflutren Lipid Microsphere 0 ml 03/03/25 13:28 Perflutren Lipid Microspheres 1.5 Ml Vial Diluted To 10 Ml Total Volume IV PUSH 03/06/25 13:29 ONCE PRN adequate visualization Protocol Tamsulosin HCl 0.4 mg 03/03/25 09:00 03/03/25 08:30 Tamsulosin Hcl 0.4 Mg Capsule PO 0.4 mg DAILY KIMBERLYN Administration Radiology Results: ITS Impressions Head CT 03/02/25 13:51 Impression: No intracranial hemorrhage, mass, or acute infarct. Atrophy and chronic white matter changes, as above. Cervical Spine CT 03/02/25 14:59 IMPRESSION: 1. Severe lower cervical predominant spondylosis. No acute osseous abnormality.. Elbow X-Ray 03/02/25 15:54 Impression: 1: No acute fracture. Chest X-Ray 03/03/25 06:49 Impression: Stable apparent chronic blunting of right costophrenic angle versus chronic small right pleural effusion. No acute reality. Shoulder X-Ray 03/03/25 06:50 Impression: Advanced AC joint degenerative change. Labs Labs: Laboratory Results - last 24 hr 03/02/25 03/02/25 03/02/25 13:31 14:23 19:08 POC Capillary Glucose Hemoglobin A1c 6.4 H Troponin I 0.086 H* D Urine Color Yellow Urine Appearance Cloudy H Urine pH 6.5 Ur Specific [place] 1.017 Urine Protein 2+ H Urine Glucose (UA) Negative Urine Ketones Negative Ur Blood (Man) 3+ H Urine Nitrate Positive H Urine Bilirubin Negative Urine Urobilinogen 1.0 Add Ur Microanalysis Reviewed Leukocyte Esterase Rfl 3+ H Urine RBC >100 H Urine WBC >100 H Ur Squamous Epith Cells None seen Urine Bacteria 4+ H Urine Casts 6-10 03/02/25 03/02/25 03/03/25 21:19 21:50 08:12 POC Capillary Glucose 174 H 107 H Hemoglobin A1c Troponin I 0.081 H* Urine Color Urine Appearance Urine pH Ur Specific [place] Urine Protein Urine Glucose (UA) Urine Ketones Ur Blood (Man) Urine Nitrate Urine Bilirubin Urine Urobilinogen Add Ur Microanalysis Leukocyte Esterase Rfl Urine RBC Urine WBC Ur Squamous Epith Cells Urine Bacteria Urine Casts 03/03/25 11:38 POC Capillary Glucose 163 H Hemoglobin A1c Troponin I Urine Color Urine Appearance Urine pH Ur Specific [place] Urine Protein Urine Glucose (UA) Urine Ketones Ur Blood (Man) Urine Nitrate Urine Bilirubin Urine Urobilinogen Add Ur Microanalysis Leukocyte Esterase Rfl Urine RBC Urine WBC Ur Squamous Epith Cells Urine Bacteria Urine Casts Quality VTE Prophylaxis VTE prophylaxis: pharmacologic ordered (Continue home Eliquis)
--- NOTE | 2025-03-03 14:41 | IVDEFINITY ---
Prior to administration of IV Definity the patient was educated on the risks and benefits of the imaging enhancing agent including potential adverse side effects. The patient verbalized understanding. Allergies were verified. No exclusion criteria were identified and at least one of the following inclusion criteria were met: 1) physician request, 2) patient technically difficult to image (per the [place] [employer]ocardi[employer] guidelines of two or more segments not discernable within the apical view), or 3) questionable left ventricular function. ?
[2025-03-03 16:37] LABS: Glucose Point of Care 176 mg/dl (65-105)
[2025-03-03] MEDS: cefTRIAXone 2 GM/NS 100 ML 2 GM/100 ML BAG IVPB (17:06)
[2025-03-03 19:42] LABS: Glucose Point of Care 191 mg/dl (65-105)
[2025-03-03] MEDS: AMIODARONE HCL 200 MG TABLET PO (20:36)
[2025-03-04] VITALS (13 sets, daily range): BP systolic 128–154; BP diastolic 60–79; PULSE 69–70; RESP 12–20; TEMP 36.1–36.8; O2SAT 97–100
[2025-03-04 06:02] LABS: Hematocrit 36.8 % (42.0-52.0); Hemoglobin 11.5 g/dL (14.0-18.0); Mean Corpuscular HGB Conc 31.3 g/dl (32-36); Mean Corpuscular Hemoglobin 29.6 pg (26-34); Mean Corpuscular Volume 94.6 fl (80-100); Platelet Count Result 188 k/mm3 (150-375); Red Blood Count 3.89 M/mm3 (4.6-6.20); Red Cell Distribution Width 13.8 % (11.5-14.5); White Blood Count 5.5 K/mm3 (4.5-10.0)
[2025-03-04 06:13] LABS: Anion Gap 4 mmol/L (4-12); Blood Urea Nitrogen 17 mg/dL (9-20); Calcium 9.1 mg/dL (8.4-10.2); Carbon Dioxide 30 mmol/L (22-30); Chloride 105 mmol/L (98-107); Estimated CRCL calculation 65 ml/min; Estimated Glomerular Filt Rate > 60; Glucose 120 mg/dL (65-110); Magnesium 2.2 mg/dL (1.6-2.3); Potassium 4.7 mmol/L (3.4-5.0); Sodium 139 mmol/L (137-145)
[2025-03-04 08:11] LABS: Glucose Point of Care 119 mg/dl (65-105)
[2025-03-04] MEDS: ASPIRIN 81 MG ENTERIC TABLET PO (08:41)
[2025-03-04] MEDS: APIXABAN 5 MG TABLET PO ×2 (08:41→20:21)
[2025-03-04] MEDS: PANTOPRAZOLE SOD SESQUIHYDRATE 20 MG TAB PO ×2 (08:41→20:21)
[2025-03-04] MEDS: GABAPENTIN 300 MG CAPSULE PO ×3 (08:41→20:21)
[2025-03-04] MEDS: ATORVASTATIN 40 MG TABLET PO (08:41)
[2025-03-04] MEDS: AMIODARONE HCL 200 MG TABLET PO ×2 (08:41→17:16)
[2025-03-04] MEDS: MIRABEGRON 50 MG ER TABLET PO (08:41)
[2025-03-04] MEDS: TAMSULOSIN HCL 0.4 MG CAPSULE PO (08:42)
[2025-03-04 11:25] LABS: Glucose Point of Care 297 mg/dl (65-105)
[2025-03-04] MEDS: INSULIN ASPART (*BKC) 100 UNITS/ML SUB-Q (11:38)
[2025-03-04 11:42] LABS: Glucose Point of Care 292 mg/dl (65-105)
--- NOTE | 2025-03-04 12:04 | PM.IMPN ---
Progress Note: A&P Assessment and Plan (1) Syncope: Qualifiers: Syncope type: unspecified Qualified Code(s): R55 - Syncope and collapse Code(s): R55 - Syncope and collapse Status: Acute (2) Orthostatic hypotension: Code(s): I95.1 - Orthostatic hypotension Status: Acute (3) Elevated troponin: Code(s): R79.89 - Other specified abnormal findings of blood chemistry Status: Acute (4) UTI (urinary tract infection) due to urinary indwelling Omer catheter: Qualifiers: Encounter type: initial encounter Indwelling urinary catheter type: indwelling urethral catheter Qualified Code(s): T83.511A - Infection and inflammatory reaction due to indwelling urethral catheter, initial encounter; N39.0 - Urinary tract infection, site not specified Code(s): T83.511A - Infection and inflammatory reaction due to indwelling urethral catheter, initial encounter; N39.0 - Urinary tract infection, site not specified Status: Acute (5) Chronic anticoagulation: Code(s): Z79.01 - retirement (current) use of anticoagulants Status: Acute (6) Pupil diameter unequal: Code(s): H57.02 - Anisocoria Status: Acute Plan Syncope likely vasovagal or orthostatic in nature. The patient does have significant drop in both systolic blood pressure and significant increase in heart rate with position changes. Does admit to decreased oral intake recently and slow progressive weight loss since his in February of 2023. He states that he just does not eat as well since he has moved in with his son. Patient received 1 L fluid bolus in the ER. Will continue normal saline at 125 mL an hour and re-evaluate orthostatic vital signs in a.m.. Patient had also been out in the sun for an extended amount of time in could of had heat syncope. He does have history of recent pacemaker placement. EKGs were reviewed demonstrated but atrium ventricular paced beats. Will obtain pacemaker interrogation in a.m.. Will continue to monitor patient on telemetry. The patient did have a slight increase in his troponin for between the 1st and 2nd troponin but between the 2nd and 3rd troponin is troponin profile was completely flat. Acute ischemic event is unlikely. Will resume patient's home aspirin, Eliquis and atorvastatin. The patient's urinalysis as abnormal the patient does not have fever or leukocytosis. He does state that his urine has changed in appearance recently and is more foul-smelling. His last urine culture last month grew out 50,000-100,000 Pluralibacter gergoviae which was pansensitive. Patient does have type 2 diabetes mellitus but his A1c is well controlled. Will hold his home metformin and will provide moderate dose sliding scale insulin Accu-Cheks a.c. HS and hypoglycemia protocol. Patient has unequal pupil diameter but both eyes are equally reactive. He has no acute symptoms and acute intercranial process ruled out with CT. Will monitor. patient presented with syncopal episode, patient pacemaker was interrogation reveal patient's maker needs to be evaluated by gardening instructor and further recommendations to follow, patient was seen by the gardening instructor and recommended to replace the pacemaker however his primary gardening instructor requeste wait until he sees the patient in his office and will plan as this not an emergent situation, patient remains clinically stable, upon arrival patient UA was suspicious for UTI, urine culture is growing gram negative bacilli, patient is being treated with ceftriaxone, will follow up urine culture and further recommendation to follow. will have PT/OT evaluate the patient and patient will benefit going to acute rehab. 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 The patient reports that he had been at the local [facility] out in the heat looking for an engine parts. He had been walking around for about 2 hours. He reported that he suddenly became lightheaded and profusely sweaty. The next thing he knew he had passed out. He denies any preceding chest pain shortness of breath or palpitations. He denied any nausea vomiting. He reports that for the last 2 months or so in his urine in his Omer catheter has smelled horrible. He denies it being any cloudy or than usual but it has been cloudy for the same amount of time that it is smelled bad. He he denies having any fevers or chills. He has been having normal bowel movements. He denies any recent hematuria. His Omer catheter was exchanged in the ER. He reports that he is having pain with movement of his left shoulder and left elbow. He reports that his pain is moderate in nature. He has severe pain in his back. He reports that the back pain is chronic and unchanged from baseline. He states that he landed on his left shoulder and elbow. The pain is worse with movement. He denies any chest pain. He does have history of coronary artery disease but had his last [place] and 2 cardiac stents placed about 20 years ago. He has slightly unequal pupils on exam but he denies any headache or vision changes. He had a CT in the ER that was negative for acute process. He does not know the has chronically unequal pupils are not. He does state that he has a cataract that is developing in his left eye. patient presented with syncopal episode, patient pacemaker was interrogation reveal patient's maker needs to be evaluated by gardening instructor and further recommendations to follow, patient was seen by the gardening instructor and recommended to replace the pacemaker however his primary gardening instructor requeste wait until he sees the patient in his office and will plan as this not an emergent situation, patient remains clinically stable, upon arrival patient UA was suspicious for UTI, urine culture is growing gram negative bacilli, patient is being treated with ceftriaxone, will follow up urine culture and further recommendation to follow. will have PT/OT evaluate the patient and patient will benefit going to acute rehab. Review of Systems Review of Systems: 12 systems were reviewed with pertinent positives and negatives per HPI. Except as documented in the HPI, all other systems were reviewed and are negative. Exam Narrative: Patient is comfortable, NAD HEENT: eyes are clear and none icteric LUNGS:CTA HEART: RR S1S2 ABD: BS+, Soft and nontender Lower extremities: no edema SKIN: nonjaundiced Neuro: grossly intact. Objective Data Vital Signs Vital Signs: Vital Signs - 24 hr 03/03/25 14:00 03/03/25 16:00 03/03/25 20:00 Temperature 36.1 C L 36.3 C L Pulse Rate 60 68 70 Respiratory Rate 18 16 Blood Pressure 136/56 L 140/63 Pulse Oximetry 100 99 Oxygen Delivery 03/03/25 20:00 03/03/25 20:00 03/03/25 20:00 Temperature 36.3 C L 36.2 C L Pulse Rate 70 70 70 Respiratory Rate 20 24 H Blood Pressure 148/68 H 148/65 H Pulse Oximetry 100 99 Oxygen Delivery 03/03/25 20:21 03/03/25 20:36 03/04/25 00:00 Temperature Pulse Rate 76 70 Respiratory Rate Blood Pressure Pulse Oximetry Oxygen Delivery Room Air 03/04/25 04:00 03/04/25 06:00 03/04/25 08:00 Temperature 36.1 C L Pulse Rate 70 70 Respiratory Rate 12 Blood Pressure 146/72 H 154/79 H Pulse Oximetry 97 Oxygen Delivery 03/04/25 08:00 03/04/25 08:00 03/04/25 08:35 Temperature Pulse Rate 70 Respiratory Rate Blood Pressure 147/67 H Pulse Oximetry 97 Oxygen Delivery Room Air 03/04/25 08:36 03/04/25 08:41 Temperature Pulse Rate 70 Respiratory Rate Blood Pressure 132/66 Pulse Oximetry Oxygen Delivery Intake/Output Intake/Output: Intake & Output 03/01/25 03/02/25 03/03/25 03/04/25 23:59 23:59 23:59 23:59 Intake Total 1100 2953.3 1347 Output Total 2650 4500 Balance 1100 303.3 -3153 Meds/Results Medications: Active Medications Generic Name Dose Route Start Last Admin Trade Name Freq PRN Reason Stop Dose Admin Acetaminophen 500 mg 03/02/25 20:53 03/03/25 20:33 Acetaminophen 500 Mg Tablet PO 500 mg Q4H PRN Administration Mild Pain (1-3) or Fever Hydrocodone Bitart/Acetaminophen 1 tab 03/02/25 20:53 03/02/25 22:59 Hydrocodone/Acetaminophen (*Crx) 5-325 Mg Tablet PO 1 tab Q4H PRN Administration Pain Rated 4-10 Amiodarone HCl 200 mg 03/03/25 20:00 03/04/25 08:41 Amiodarone Hcl 200 Mg Tablet PO 200 mg BID KIMBERLYN Administration Apixaban 5 mg 03/02/25 21:00 03/04/25 08:41 Apixaban 5 Mg Tablet PO 5 mg Q12HR KIMBERLYN Administration Aspirin 81 mg 03/03/25 09:00 03/04/25 08:41 Aspirin 81 Mg Enteric Tablet PO 81 mg DAILY KIMBERLYN Administration Atorvastatin Calcium 40 mg 03/03/25 09:00 03/04/25 08:41 Atorvastatin 40 Mg Tablet PO 40 mg DAILY KIMBERLYN Administration Dextrose 12.5 gm 03/02/25 19:32 Dextrose 50% 25 Gm/50 Ml Syringe IV PUSH PRN PRN Hypoglycemia Protocol Gabapentin 300 mg 03/02/25 21:00 03/04/25 08:41 Gabapentin 300 Mg Capsule PO 300 mg 09,15,21 KIMBERLYN Administration Glucagon 1 mg 03/02/25 19:32 Glucagon For Inj 1 Mg Vial IM PRN PRN Hypoglycemia Protocol Glucose 15 gm 03/02/25 19:32 Glucose Oral Gel 15 Gm Of Glucse In 37.5 Gm Tube PO PRN PRN Hypoglycemia Protocol Ceftriaxone Sodium 2 gm in 100 mls @ 200 mls/hr 03/02/25 18:00 03/03/25 17:36 Rocephin 2 Gm/Ns 100 Ml IVPB Infused Q24H KIMBERLYN Infusion Dextrose 1,000 mls @ 100 mls/hr 03/02/25 19:32 Dextrose 5% 1,000 Ml IVPB PRN PRN Hypoglycemia Protocol Insulin Aspart 3 - 6 units 03/03/25 08:00 03/04/25 11:38 Insulin Aspart (*Bkc) 100 Units/Ml SUB-Q 4 units TIDWM KIMBERLYN Administration Protocol Mirabegron 50 mg 03/03/25 09:00 03/04/25 08:41 Mirabegron 50 Mg Er Tablet PO 50 mg DAILY KIMBERLYN Administration Pantoprazole Sodium 20 mg 03/02/25 21:00 03/04/25 08:41 Pantoprazole Sod Sesquihydrate 20 Mg Tab PO 20 mg Q12HR KIMBERLYN Administration Tamsulosin HCl 0.4 mg 03/03/25 09:00 03/04/25 08:42 Tamsulosin Hcl 0.4 Mg Capsule PO 0.4 mg DAILY KIMBERLYN Administration Radiology Results: ITS Impressions Head CT 03/02/25 13:51 Impression: No intracranial hemorrhage, mass, or acute infarct. Atrophy and chronic white matter changes, as above. Cervical Spine CT 03/02/25 14:59 IMPRESSION: 1. Severe lower cervical predominant spondylosis. No acute osseous abnormality.. Elbow X-Ray 03/02/25 15:54 Impression: 1: No acute fracture. Chest X-Ray 03/03/25 06:49 Impression: Stable apparent chronic blunting of right costophrenic angle versus chronic small right pleural effusion. No acute reality. Shoulder X-Ray 03/03/25 06:50 Impression: Advanced AC joint degenerative change. Labs Labs: Laboratory Results - last 24 hr 03/03/25 03/03/25 03/04/25 16:34 19:34 05:46 WBC 5.5 RBC 3.89 L Hgb 11.5 L Hct 36.8 L MCV 94.6 MCH 29.6 MCHC 31.3 L RDW 13.8 Plt Count 188 MPV 9.0 Sodium 139 Potassium 4.7 Chloride 105 Carbon Dioxide 30 Anion Gap 4 BUN 17 Creatinine 0.88 Estim Creat Clear Calc 65 Estimated GFR > 60 Glucose 120 H POC Capillary Glucose 176 H 191 H Calcium 9.1 Magnesium 2.2 03/04/25 03/04/25 03/04/25 08:05 11:22 11:37 WBC RBC Hgb Hct MCV MCH MCHC RDW Plt Count MPV Sodium Potassium Chloride Carbon Dioxide Anion Gap BUN Creatinine Estim Creat Clear Calc Estimated GFR Glucose POC Capillary Glucose 119 H 297 H 292 H Calcium Magnesium Quality VTE Prophylaxis VTE prophylaxis: pharmacologic ordered (Continue home Eliquis)
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
[2025-03-04 17:13] LABS: Glucose Point of Care 108 mg/dl (65-105)
[2025-03-04] MEDS: cefTRIAXone 2 GM/NS 100 ML 2 GM/100 ML BAG IVPB (17:17)
[2025-03-04 20:00] LABS: Glucose Point of Care 241 mg/dl (65-105)
[2025-03-05] VITALS (14 sets, daily range): BP systolic 117–151; BP diastolic 52–73; PULSE 69–80; RESP 16–24; TEMP 35.9–36.6; O2SAT 96–100
[2025-03-05 06:37] LABS: Hematocrit 38.2 % (42.0-52.0); Hemoglobin 12.2 g/dL (14.0-18.0); Mean Corpuscular HGB Conc 31.9 g/dl (32-36); Mean Corpuscular Hemoglobin 30.1 pg (26-34); Mean Corpuscular Volume 94.3 fl (80-100); Platelet Count Result 214 k/mm3 (150-375); Red Blood Count 4.05 M/mm3 (4.6-6.20); Red Cell Distribution Width 13.6 % (11.5-14.5); White Blood Count 6.1 K/mm3 (4.5-10.0)
[2025-03-05 07:28] LABS: Anion Gap 6 mmol/L (4-12); Blood Urea Nitrogen 19 mg/dL (9-20); Calcium 9.5 mg/dL (8.4-10.2); Carbon Dioxide 30 mmol/L (22-30); Chloride 101 mmol/L (98-107); Estimated CRCL calculation 67 ml/min; Estimated Glomerular Filt Rate > 60; Glucose 131 mg/dL (65-110); Magnesium 2.1 mg/dL (1.6-2.3); Potassium 4.6 mmol/L (3.4-5.0); Sodium 137 mmol/L (137-145)
[2025-03-05 07:29] LABS: Glucose Point of Care 145 mg/dl (65-105)
[2025-03-05] MEDS: ATORVASTATIN 40 MG TABLET PO (08:57)
[2025-03-05] MEDS: PANTOPRAZOLE SOD SESQUIHYDRATE 20 MG TAB PO ×2 (08:57→21:04)
[2025-03-05] MEDS: AMIODARONE HCL 200 MG TABLET PO ×2 (08:57→16:21)
[2025-03-05] MEDS: APIXABAN 5 MG TABLET PO ×2 (08:57→21:04)
[2025-03-05] MEDS: MIRABEGRON 50 MG ER TABLET PO (08:57)
[2025-03-05] MEDS: TAMSULOSIN HCL 0.4 MG CAPSULE PO (08:57)
[2025-03-05] MEDS: ASPIRIN 81 MG ENTERIC TABLET PO (08:58)
[2025-03-05] MEDS: GABAPENTIN 300 MG CAPSULE PO ×3 (09:01→21:04)
--- NOTE | 2025-03-05 09:40 | PCPTNOTE ---
Patient's son requested for patient not to be seen at this time secondary to them waiting on a phone call from the Director Experimental Medicine.
[2025-03-05 11:28] LABS: Glucose Point of Care 189 mg/dl (65-105)
--- NOTE | 2025-03-05 14:06 | P.PNIM_ITS ---
Progress Note: A&P Assessment and Plan (1) Syncope: Qualifiers: Syncope type: unspecified Qualified Code(s): R55 - Syncope and collapse Code(s): R55 - Syncope and collapse Status: Acute (2) Orthostatic hypotension: Code(s): I95.1 - Orthostatic hypotension Status: Acute (3) Elevated troponin: Code(s): R79.89 - Other specified abnormal findings of blood chemistry Status: Acute (4) UTI (urinary tract infection) due to urinary indwelling Omer catheter: Qualifiers: Encounter type: initial encounter Indwelling urinary catheter type: indwelling urethral catheter Qualified Code(s): T83.511A - Infection and inflammatory reaction due to indwelling urethral catheter, initial encounter; N39.0 - Urinary tract infection, site not specified Code(s): T83.511A - Infection and inflammatory reaction due to indwelling urethral catheter, initial encounter; N39.0 - Urinary tract infection, site not specified Status: Acute (5) Chronic anticoagulation: Code(s): Z79.01 - [facility] (current) use of anticoagulants Status: Acute (6) Pupil diameter unequal: Code(s): H57.02 - Anisocoria Status: Acute Plan 79-year-old male with history of tachy-pearl syndrome status post pacemaker implantation CVA coronary artery disease type 2 diabetes mellitus peripheral neuropathy BPH status post TURP chronic indwelling Omer catheter presented to the ER via EMS after having a syncopal episode. The patient reports that he had been at the local [facility] out in the heat looking for an engine parts. He had been walking around for about 2 hours. He reported that he suddenly became lightheaded and profusely sweaty. The next thing he knew he had passed out. He denies any preceding chest pain shortness of breath or palpitations. He denied any nausea vomiting. He reports that for the last 2 months or so in his urine in his Omer catheter has smelled horrible. He denies it being any cloudy or than usual but it has been cloudy for the same amount of time that it is smelled bad. He he denies having any fevers or chills. He has been having normal bowel movements. He denies any recent hematuria. His Omer catheter was exchanged in the ER. He reports that he is having pain with movement of his left shoulder and left elbow. He reports that his pain is moderate in nature. He has severe pain in his back. He reports that the back pain is chronic and unchanged from baseline. He states that he landed on his left shoulder and elbow. The pain is worse with movement. He denies any chest pain. He does have history of coronary artery disease but had his last IN and 2 cardiac stents placed about 20 years ago. He has slightly unequal pupils on exam but he denies any headache or vision changes. He had a CT in the ER that was negative for acute process. He does not know the has chronically unequal pupils are not. He does state that he has a cataract that is developing in his left eye. syncope: likely vasovagal or orthostatic in nature. orthostatic positive. indicating dehydration. progresssive weight loss since of february 2023. also undelrying UTI. Pacemaker device interrogation showed slow ventricular tachycardia around the time of his syncopal episode. Patient will need defibrillator upgrade. Discussed with primary joiner helper and this will be performed as an outpatient basis. Ventricular tachycardia slow VT noted on pacemaker interrogation. Likely etiology of his syncopal episode. Discussed with EP by Cardiology Dehydration orthostatic hypotension received IV fluids Tachy-pearl syndrome status post pacemaker implantation Elevated troponin mild essentially flat trend. Coronary artery disease status post stents about 20 years ago. UTI: Urine culture last month grew 50k to 100k pluralibacter gergoviae which was pansensitive. on ceftriaxone. Type 2 diabetes mellitus on metformin at home. On SSI. Anisocoria: CT head negative for any acute intracranial process urology consulted DVT prophylaxis on Eliquis Paresthesia below left knee could be related to left L5 radiculopathy does have chronic low back pain. CT lumbar spine with multilevel degenerative disc disease with multilevel spinal canal stenosis and neural impingement. 80 mg as outpatient basis Code status do not resuscitate Subjective Date/time seen: 03/05/25 14:06 Interval history: no new complaints. complains of numbness of left leg. no dizzinesss or sob, chest pain Review of Systems Review of Systems: All systems reviewed & are unremarkable except as noted in HPI and below Exam Narrative: Patient is comfortable, NAD HEENT: eyes are clear and none icteric LUNGS:CTA HEART: RR S1S2 ABD: BS+, Soft and nontender Lower extremities: no edema SKIN: nonjaundiced Neuro: grossly intact. Objective Data Vital Signs Vital Signs: Vital Signs - 24 hr 03/04/25 16:00 03/04/25 17:16 03/04/25 20:00 Temperature Pulse Rate 70 70 70 Respiratory Rate Blood Pressure Pulse Oximetry Oxygen Delivery 03/04/25 20:15 03/04/25 21:06 03/05/25 00:00 Temperature 98.2 F Pulse Rate 70 70 Respiratory Rate 20 Blood Pressure 128/60 Pulse Oximetry 99 Oxygen Delivery Room Air 03/05/25 04:00 03/05/25 06:32 03/05/25 06:32 Temperature 97.9 F Pulse Rate 70 70 70 Respiratory Rate 16 20 Blood Pressure 130/65 137/73 Pulse Oximetry 97 98 Oxygen Delivery 03/05/25 06:33 03/05/25 08:00 03/05/25 08:00 Temperature 96.6 F L Pulse Rate 69 70 70 Respiratory Rate 20 20 Blood Pressure 125/62 151/71 H Pulse Oximetry 96 98 Oxygen Delivery 03/05/25 08:00 03/05/25 08:21 03/05/25 08:22 Temperature 96.6 F L 96.6 F L Pulse Rate 70 70 Respiratory Rate 18 20 Blood Pressure 128/62 140/60 Pulse Oximetry 100 100 Oxygen Delivery Room Air 03/05/25 08:57 03/05/25 10:27 Temperature Pulse Rate 70 Respiratory Rate Blood Pressure Pulse Oximetry Oxygen Delivery Room Air Intake/Output Intake/Output: Intake & Output 03/02/25 03/03/25 03/04/25 03/05/25 23:59 23:59 23:59 23:59 Intake Total 1100 2953.3 2907 696 Output Total 2650 7300 1200 Balance 1100 303.3 -4393 -504 Meds/Results Medications: Active Medications Generic Name Dose Route Start Last Admin Trade Name Freq PRN Reason Stop Dose Admin Acetaminophen 500 mg 03/02/25 20:53 03/03/25 20:33 Acetaminophen 500 Mg Tablet PO 500 mg Q4H PRN Administration Mild Pain (1-3) or Fever Hydrocodone Bitart/Acetaminophen 1 tab 03/02/25 20:53 03/02/25 22:59 Hydrocodone/Acetaminophen (*Crx) 5-325 Mg Tablet PO 1 tab Q4H PRN Administration Pain Rated 4-10 Amiodarone HCl 200 mg 03/03/25 20:00 03/05/25 08:57 Amiodarone Hcl 200 Mg Tablet PO 200 mg BID KIMBERLYN Administration Apixaban 5 mg 03/02/25 21:00 03/05/25 08:57 Apixaban 5 Mg Tablet PO 5 mg Q12HR KIMBERLYN Administration Aspirin 81 mg 03/03/25 09:00 03/05/25 08:58 Aspirin 81 Mg Enteric Tablet PO 81 mg DAILY KIMBERLYN Administration Atorvastatin Calcium 40 mg 03/03/25 09:00 03/05/25 08:57 Atorvastatin 40 Mg Tablet PO 40 mg DAILY KIMBERLYN Administration Dextrose 12.5 gm 03/02/25 19:32 Dextrose 50% 25 Gm/50 Ml Syringe IV PUSH PRN PRN Hypoglycemia Protocol Gabapentin 300 mg 03/02/25 21:00 03/05/25 09:01 Gabapentin 300 Mg Capsule PO 300 mg KIMBERLYN Administration Glucagon 1 mg 03/02/25 19:32 Glucagon For Inj 1 Mg Vial IM PRN PRN Hypoglycemia Protocol Glucose 15 gm 03/02/25 19:32 Glucose Oral Gel 15 Gm Of Glucse In 37.5 Gm Tube PO PRN PRN Hypoglycemia Protocol Ceftriaxone Sodium 2 gm in 100 mls @ 200 mls/hr 03/02/25 18:00 03/04/25 18:17 Rocephin 2 Gm/Ns 100 Ml IVPB Infused Q24H KIMBERLYN Infusion Dextrose 1,000 mls @ 100 mls/hr 03/02/25 19:32 Dextrose 5% 1,000 Ml IVPB PRN PRN Hypoglycemia Protocol Insulin Aspart 3 - 6 units 03/03/25 08:00 03/05/25 11:52 Insulin Aspart (*Bkc) 100 Units/Ml SUB-Q Not Given [facility] Protocol Mirabegron 50 mg 03/03/25 09:00 03/05/25 08:57 Mirabegron 50 Mg Er Tablet PO 50 mg DAILY KIMBERLYN Administration Pantoprazole Sodium 20 mg 03/02/25 21:00 03/05/25 08:57 Pantoprazole Sod Sesquihydrate 20 Mg Tab PO 20 mg Q12HR KIMBERLYN Administration Tamsulosin HCl 0.4 mg 03/03/25 09:00 03/05/25 08:57 Tamsulosin Hcl 0.4 Mg Capsule PO 0.4 mg DAILY KIMBERLYN Administration Radiology Results: ITS Impressions Head CT 03/02/25 13:51 Impression: No intracranial hemorrhage, mass, or acute infarct. Atrophy and chronic white matter changes, as above. Cervical Spine CT 03/02/25 14:59 IMPRESSION: 1. Severe lower cervical predominant spondylosis. No acute osseous abnormality.. Elbow X-Ray 03/02/25 15:54 Impression: 1: No acute fracture. Chest X-Ray 03/03/25 06:49 Impression: Stable apparent chronic blunting of right costophrenic angle versus chronic small right pleural effusion. No acute reality. Shoulder X-Ray 03/03/25 06:50 Impression: Advanced AC joint degenerative change. Lumbar Spine CT 03/04/25 17:24 IMPRESSION: Multilevel degenerative disc disease with multilevel spinal canal stenosis and neural impingement. MRI is better for evaluation. Highly suggestive left kidney stones. Minimal fullness of the renal pelvis bilaterally more on the right side. Further evaluation advised. Labs Labs: Laboratory Results - last 24 hr 03/04/25 03/04/25 03/05/25 17:07 19:58 06:05 WBC 6.1 RBC 4.05 L Hgb 12.2 L Hct 38.2 L MCV 94.3 MCH 30.1 MCHC 31.9 L RDW 13.6 Plt Count 214 MPV 9.0 Sodium 137 Potassium 4.6 Chloride 101 Carbon Dioxide 30 Anion Gap 6 BUN 19 Creatinine 0.86 Estim Creat Clear Calc 67 Estimated GFR > 60 Glucose 131 H POC Capillary Glucose 108 H 241 H Calcium 9.5 Magnesium 2.1 03/05/25 03/05/25 07:20 11:17 WBC RBC Hgb Hct MCV MCH MCHC RDW Plt Count MPV Sodium Potassium Chloride Carbon Dioxide Anion Gap BUN Creatinine Estim Creat Clear Calc Estimated GFR Glucose POC Capillary Glucose 145 H 189 H Calcium Magnesium
[2025-03-05] MEDS: cefTRIAXone 2 GM/NS 100 ML 2 GM/100 ML BAG IVPB (16:21)
[2025-03-05 16:37] LABS: Glucose Point of Care 169 mg/dl (65-105)
[2025-03-05 21:41] LABS: Glucose Point of Care 293 mg/dl (65-105)
[2025-03-06] VITALS: PULSE 70
[2025-03-06 04:00] VITALS: PULSE 70
[2025-03-06 06:00] VITALS: BP 145/63; PULSE 70; RESP 20; TEMP 35.9; O2SAT 98
[2025-03-06 06:03] LABS: Hemoglobin 11.9 g/dL (14.0-18.0); Mean Corpuscular HGB Conc 32.2 g/dl (32-36); Mean Corpuscular Hemoglobin 29.9 pg (26-34); Mean Platelet Volume 8.6 fl (7.4-10.4); Platelet Count Result 204 k/mm3 (150-375); Red Blood Count 3.98 M/mm3 (4.6-6.20); Red Cell Distribution Width 13.7 % (11.5-14.5); White Blood Count 6.2 K/mm3 (4.5-10.0)
[2025-03-06 06:22] LABS: Anion Gap 4 mmol/L (4-12); Blood Urea Nitrogen 22 mg/dL (9-20); Calcium 9.2 mg/dL (8.4-10.2); Carbon Dioxide 31 mmol/L (22-30); Chloride 101 mmol/L (98-107); Estimated CRCL calculation 63 ml/min; Estimated Glomerular Filt Rate > 60; Glucose 151 mg/dL (65-110); Sodium 136 mmol/L (137-145)
[2025-03-06 07:51] LABS: Glucose Point of Care 132 mg/dl (65-105)
[2025-03-06 08:00] VITALS: PULSE 70
[2025-03-06 09:13] VITALS: PULSE 70
[2025-03-06] MEDS: MIRABEGRON 50 MG ER TABLET PO (09:13)
[2025-03-06] MEDS: ASPIRIN 81 MG ENTERIC TABLET PO (09:13)
[2025-03-06] MEDS: PANTOPRAZOLE SOD SESQUIHYDRATE 20 MG TAB PO (09:13)
[2025-03-06] MEDS: ATORVASTATIN 40 MG TABLET PO (09:13)
[2025-03-06] MEDS: AMIODARONE HCL 200 MG TABLET PO (09:13)
[2025-03-06] MEDS: TAMSULOSIN HCL 0.4 MG CAPSULE PO (09:13)
[2025-03-06] MEDS: APIXABAN 5 MG TABLET PO (09:13)
[2025-03-06] MEDS: GABAPENTIN 300 MG CAPSULE PO (09:15)
[2025-03-06 11:30] LABS: Glucose Point of Care 267 mg/dl (65-105)
[2025-03-06 12:00] VITALS: PULSE 70
[2025-03-06] MEDS: INSULIN ASPART (*BKC) 100 UNITS/ML SUB-Q (12:03)
--- NOTE | 2025-03-06 12:44 | PM.DS ---
DS: Admitting Diagnosis Discharge Date 03/06/2025 Admitting Diagnosis Fall DS: Discharge Diagnosis Discharge Diagnosis (1) Syncope: Qualifiers: Syncope type: unspecified Qualified Code(s): R55 - Syncope and collapse Code(s): R55 - Syncope and collapse Status: Acute (2) Orthostatic hypotension: Code(s): I95.1 - Orthostatic hypotension Status: Acute (3) Elevated troponin: Code(s): R79.89 - Other specified abnormal findings of blood chemistry Status: Acute (4) UTI (urinary tract infection) due to urinary indwelling Omer catheter: Qualifiers: Encounter type: initial encounter Indwelling urinary catheter type: indwelling urethral catheter Qualified Code(s): T83.511A - Infection and inflammatory reaction due to indwelling urethral catheter, initial encounter; N39.0 - Urinary tract infection, site not specified Code(s): T83.511A - Infection and inflammatory reaction due to indwelling urethral catheter, initial encounter; N39.0 - Urinary tract infection, site not specified Status: Acute (5) Chronic anticoagulation: Code(s): Z79.01 - MCFP (current) use of anticoagulants Status: Acute (6) Pupil diameter unequal: Code(s): H57.02 - Anisocoria Status: Acute DS: Summary Hospital Course Hospital Course: 79-year-old male with history of tachy-pearl syndrome status post pacemaker implantation CVA coronary artery disease type 2 diabetes mellitus peripheral neuropathy BPH status post TURP chronic indwelling Omer catheter presented to the ER via EMS after having a syncopal episode. The patient reports that he had been at the local [facility] [place] out in the heat looking for an engine parts. He had been walking around for about 2 hours. He reported that he suddenly became lightheaded and profusely sweaty. The next thing he knew he had passed out. He denies any preceding chest pain shortness of breath or palpitations. He denied any nausea vomiting. He reports that for the last 2 months or so in his urine in his Omer catheter has smelled horrible. He denies it being any cloudy or than usual but it has been cloudy for the same amount of time that it is smelled bad. He he denies having any fevers or chills. He has been having normal bowel movements. He denies any recent hematuria. His Omer catheter was exchanged in the ER. He reports that he is having pain with movement of his left shoulder and left elbow. He reports that his pain is moderate in nature. He has severe pain in his back. He reports that the back pain is chronic and unchanged from baseline. He states that he landed on his left shoulder and elbow. The pain is worse with movement. He denies any chest pain. He does have history of coronary artery disease but had his last ND and 2 cardiac stents placed about 20 years ago. He has slightly unequal pupils on exam but he denies any headache or vision changes. He had a CT in the ER that was negative for acute process. He does not know the has chronically unequal pupils are not. He does state that he has a cataract that is developing in his left eye. syncope: likely vasovagal or orthostatic in nature. orthostatic positive. indicating dehydration. progressive weight loss since of february 2023. also undelrying UTI. Pacemaker device interrogation showed slow ventricular tachycardia around the time of his syncopal episode. Patient will need defibrillator upgrade. Discussed with primary sanding machine operator and this will be performed as an outpatient basis. Ventricular tachycardia slow VT noted on pacemaker interrogation. Likely etiology of his syncopal episode. Discussed with EP by Cardiology. Patient started on amiodarone. Dehydration orthostatic hypotension received IV fluids Tachy-pearl syndrome status post pacemaker implantation Elevated troponin mild essentially flat trend. Coronary artery disease status post stents about 20 years ago. UTI: Urine culture last month grew 50k to 100k pluralibacter gergoviae which was pansensitive. on ceftriaxone. Repeat urine culture with Klebs aerogenes. Sensitive to ciprofloxacin levofloxacin ceftriaxone. Type 2 diabetes mellitus on metformin at home. On SSI. Anisocoria: CT head negative for any acute intracranial process urology consulted DVT prophylaxis on Eliquis Paresthesia below left knee could be related to left L5 radiculopathy does have chronic low back pain. CT lumbar spine with multilevel degenerative disc disease with multilevel spinal canal stenosis and neural impingement. followup as outpatient basis Code status do not resuscitate Time Spent with Patient Time attestation: Total time spent providing and/or coordinating discharge services: 35 minutes Exam Narrative: Patient is comfortable, NAD HEENT: eyes are clear and none icteric LUNGS:CTA HEART: RR S1S2 ABD: BS+, Soft and nontender Lower extremities: no edema SKIN: nonjaundiced Neuro: grossly intact. DS: Data Data Completed and Pending Completed studies during hospitalization: Exam Type: CA echo dop color flow w con Complete two-dimensional, color flow and Doppler transthoracic echocardiogram is performed with contrast to opacify the left ventricle and to improve the deliniation of the left ventricle endocardial borders. Staff Referring Physician: Ling Aquino DO Service Center Appraiser: Shilpa Shelton Attending Provider: Tameka Lyn Contrast/Agitated Saline Contrast/Ag. Saline: Definity Amount: 2.00 ml Administered By: Shilpa Shelton Existing IV Access: Yes IV Access Condition: patent with no signs of infiltration Summary 1. Left ventricular chamber dimension is normal. 2. Left ventricular systolic function is normal, estimated at 65-70. 3. There is mildly increased left ventricular wall thickness. 4. Left ventricular septal wall motion is abnormal with septal motion related to bundle branch block. 5. The left ventricular diastolic function is grade I diastolic dysfunction. 6. Left atrial chamber dimension is mildly enlarged. 7. There is moderate aortic valve sclerosis. 8. There is mild aortic valve calcification. 9. There is mild mitral valve regurgitation. 10. There is mild tricuspid valve regurgitation. Left Ventricle Left ventricular chamber dimension is normal. Left ventricular systolic function is normal, estimated at 65-70. There is mildly increased left ventricular wall thickness. Left ventricular septal wall motion is abnormal with septal motion related to bundle branch block. The left ventricular diastolic function is grade I diastolic dysfunction. Right Ventricle Right ventricular chamber dimension is normal. Right ventricular systolic function is normal. Linear artifact in right ventricle suggestive of catheter(s), pacemaker lead(s), or ICD lead(s). Left Atria Left atrial chamber dimension is mildly enlarged. Right Atria Right atrial chamber dimension is normal. Atrial Septum Intact interatrial septum visualized by color flow imaging. Aortic Valve The aortic valve is trileaflet. There is moderate aortic valve sclerosis. There is no aortic valve stenosis. There is trace aortic valve regurgitation. There is mild aortic valve calcification. Pulmonic Valve The pulmonic valve is normal. There is no pulmonic valve stenosis. There is trace pulmonic regurgitation. Mitral Valve The mitral valve has thickened leaflets. There is no mitral valve stenosis. There is mild mitral valve regurgitation. Tricuspid Valve The tricuspid valve leaflets are normal. There is no significant tricuspid valve stenosis. There is mild tricuspid valve regurgitation. No pulmonary hypertension, estimated pulmonary arterial systolic pressure is 16 mmHg. Pericardium/Pleural The pericardium appears normal. There is no pericardial effusion. Inferior Vena Cava Normal inferior vena cava with <50% collapse upon inspiration consistent with normal right atrial pressure, 10 mmHg. Aorta The aortic root size at the sinus of Valsalva is normal. Labs on day of discharge: Labs from last 24 hours 03/06/25 03/06/25 03/06/25 11:17 07:37 05:53 WBC 6.2 RBC 3.98 L Hgb 11.9 L Hct 37.0 L MCV 93.0 MCH 29.9 MCHC 32.2 RDW 13.7 Plt Count 204 MPV 8.6 Sodium 136 L Potassium 5.0 Chloride 101 Carbon Dioxide 31 H Anion Gap 4 BUN 22 H Creatinine 0.91 Estim Creat Clear Calc 63 Estimated GFR > 60 Glucose 151 H POC Capillary Glucose 267 H 132 H Calcium 9.2 Magnesium 2.0 03/05/25 03/05/25 19:55 16:30 WBC RBC Hgb Hct MCV MCH MCHC RDW Plt Count MPV Sodium Potassium Chloride Carbon Dioxide Anion Gap BUN Creatinine Estim Creat Clear Calc Estimated GFR Glucose POC Capillary Glucose 293 H 169 H Calcium Magnesium Imaging Radiologist's impression: ITS Impressions Head CT 03/02/25 13:51 Impression: No intracranial hemorrhage, mass, or acute infarct. Atrophy and chronic white matter changes, as above. Cervical Spine CT 03/02/25 14:59 IMPRESSION: 1. Severe lower cervical predominant spondylosis. No acute osseous abnormality.. Elbow X-Ray 03/02/25 15:54 Impression: 1: No acute fracture. Chest X-Ray 03/03/25 06:49 Impression: Stable apparent chronic blunting of right costophrenic angle versus chronic small right pleural effusion. No acute reality. Shoulder X-Ray 03/03/25 06:50 Impression: Advanced AC joint degenerative change. Lumbar Spine CT 03/04/25 17:24 IMPRESSION: Multilevel degenerative disc disease with multilevel spinal canal stenosis and neural impingement. MRI is better for evaluation. Highly suggestive left kidney stones. Minimal fullness of the renal pelvis bilaterally more on the right side. Further evaluation advised. Discharge Plan Discharge Attending physician on discharge: Andrés Stone Consulting providers: Delmer Prince; Refugio Hong Discharging Clinician: Andrés Stone Anticipated Discharge Date/Time: 03/06/25 12:56 Patient Disposition: Home Activity: as tolerated Diet: heart healthy Discharge Instructions: Change Omer every month. Follow-up with urology as outpatient. As previously scheduled. Follow-up with cardiology as scheduled. Patient Instructions: Antibiotic Form Patient Language: Occitan Stand Alone Forms: General Discharge Information Follow-up/Referrals: Rosa,MD Sahara [Primary Care Provider] - 1 Week Refugio Hong MD [Physician] - 2 Weeks Discharge Medications: New cefdinir 300 mg capsule 300 mg PO Q12H Qty: 6 0RF amiodarone [Pacerone] 200 mg Tablet 200 mg PO BID Qty: 60 0RF Continued atorvastatin 80 mg tablet 40 mg PO DAILY Eliquis 5 mg Tablet 5 mg PO BID tamsulosin 0.4 mg capsule 0.4 mg PO DAILY omeprazole 20 mg Capsule,Delayed Release(Dr/Ec) 20 mg PO BID mirabegron [Myrbetriq] 50 mg tablet extended release 24 hr 50 mg PO DAILY aspirin [Adult Low Dose Aspirin] 81 mg Tablet,Delayed Release (Dr/Ec) 81 mg PO DAILY Trulicity 1.5 mg/0.5 mL pen injector 1.5 mg SUBCUT WEEKLY Patient Comments: TAKES ON saturday Rx Instructions: saturday gabapentin 300 mg capsule 300 mg PO TID metformin 500 mg tablet extended release 24 hr 500 mg PO BID Date of admission: 03/03/25 16:09 Primary Care Provider: RosaSahara Admitting Provider: Tameka Lyn Attending physician on admission: Tameka Lyn Condition: Stable
== END 2025-03-06 14:35 | disposition home or self-care (01) | DRG 309 ==
LOC: ANHED 16:07 → ANH3MEDSUR 17:00
PROVIDERS: Family Medicine; Nurse Practitioner; Admitting Provider Internal Medicine; Emergency Provider Emergency Medicine; PCP Internal Medicine; Visit Provider Internal Medicine
DX: I47.20 Ventricular tachycardia, unspecified (principal); I69.354 Hemiplegia and hemiparesis following cerebral infarction affecting left non-dominant side; T83.511A Infection and inflammatory reaction due to indwelling urethral catheter, initial encounter; I25.10 Atherosclerotic heart disease of native coronary artery without angina pectoris; I10 Essential (primary) hypertension; I95.1 Orthostatic hypotension; E83.42 Hypomagnesemia; E86.0 Dehydration; E11.40 Type 2 diabetes mellitus with diabetic neuropathy, unspecified; N40.0 Benign prostatic hyperplasia without lower urinary tract symptoms; M54.17 Radiculopathy, lumbosacral region; M25.512 Pain in left shoulder; M25.522 Pain in left elbow; M54.50 Low back pain, unspecified; G89.29 Other chronic pain; H57.02 Anisocoria; F10.21 Alcohol dependence, in remission; Z96.653 Presence of artificial knee joint, bilateral; I25.2 Old myocardial infarction; Z79.01 Long term (current) use of anticoagulants; Z79.82 Long term (current) use of aspirin; Z95.0 Presence of cardiac pacemaker; Z95.5 Presence of coronary angioplasty implant and graft; Z86.718 Personal history of other venous thrombosis and embolism; Z87.442 Personal history of urinary calculi; Z87.11 Personal history of peptic ulcer disease; Z87.891 Personal history of nicotine dependence
CPT/HCPCS: 36415; 70450; 71045; 72125; 72131; 73030; 73070; 80048; 80053; 81001; 82948; 83036; 83735; 84484; 85025; 85027; 85610; 85730; 87086; 87186; 93005; 96360; 96361; 96365; 96366; 96375; 97110; 97116; 97161; 97162; 97166; 97530; 99285; A9270; C8929; G0378; J0696; J1815; J3475; J7030; L0140; Q9957

== ENCOUNTER 2025-03-07 17:59 | Emergency (ER) | payer MEDICARE, MEDICAID, SELFPAY ==
[2025-03-07] VITALS (15 sets, daily range): BP systolic 117–138; BP diastolic 56–76; PULSE 61–70; RESP 14–20; TEMP 36.3–36.8; O2SAT 94–100
--- NOTE | ~2025-03-07 | CT_ITS ---
CLINICAL INDICATION: Gross hematuria COMPARISON: 08/25/2024. TECHNIQUE: Multiple contiguous axial images of the abdomen and pelvis were performed without the admi nistration of intravenous contrast The dose-length product (DLP) was 798.90 mGy-cm. Automated exposure control and iterative reconstruction technique were employed. FINDINGS/OBSERVATIONS: Visualized lower thorax: Round atelectasis within the right lung base, unchanged from 2023. Scarring within the visualized portion of the right middle lobe, also unchanged. The remainder of the bilateral lung bases are clear. The heart is of normal size, without pericardial effusion. Liver: The liver demonstrates homogeneous attenuation and is not enlarged. Gallbladder and biliary system: The gallbladder is surgically absent. Pancreas: Limited evaluation of the pancreas secondary to the lack of intravenous contrast. Spleen: The spleen demonstrates homogeneous attenuation and is not enlarged. Kidneys: Redemonstration of multiple nonobstructing stones within the lower pole of the left kidney. No stones are present within the right kidney. No hydronephrosis is detected bilaterally. Adrenal glands: Unremarkable. Gastrointestinal tract: Colonic diverticulosis without surrounding inflammatory change. Appendix: The appendix is not definitively visualized. However, no pericecal inflammatory change is identified suggest the presence of acute appendicitis. Vasculature: Calcified atherosclerotic disease. Lymph nodes: Limited evaluation without intravenous contrast Pelvic structures: The bladder is decompressed with a Omer catheter with significant surrounding inflammatory change. The prostate gland is not enlarged. Body wall and musculoskeletal: Fat-containing right inguinal hernia. There are bridging endplate osteophytes at multiple levels in the visualized portion of the thoracic spine, consistent with diffuse idiopathic skeletal hyperostosis (DISH). Significant degenerative disease within the lumbosacral spine with osteophyte formation, disc space n arrowing, endplate changes and facet arthropathy. IMPRESSION: Nonobstructing left renal calculi. Significant inflammatory change surrounding the decompressed bladder, consistent with patient's histo ry. Reviewed, dictated and finalized at location A. IMPRESSION: Nonobstructing left renal calculi. Significant inflammatory change surrounding the decompressed bladder, consisten t with patient's history.
--- OUTSIDE RECORDS SUMMARY | 2025-03-07 18:02 | XMS_ITS | Clinical Summary ---
Author Organization [facility] er Address [address] [place] [address] Care Team Providers Care Trauma Coordinator Name Role Phone No, Physician Unavailable Dear, [...] 08/06/2022 Assessment & Plan (08/06/2022 12:13 PM METAL TEMPERER): Chronic, worsening - Refer to vascular surgery [...] 04/17/2022 Assessment & Plan (11/13/2022 2:04 PM METAL TEMPERER): Chronic, R anterior tibial (12/12); unprovoked per [...] surgery Assessment & Plan (08/06/2022 12:10 PM METAL TEMPERER): Chronic, R anterior tibial (12/12); unprovoked per [...] 04/17/2022 Assessment & Plan (08/06/2022 12:14 PM METAL TEMPERER): Chronic Complications: CAD, HTN, Neuropathy A1c: 8.0 [...] 04/17/2022 Assessment & Plan (08/06/2022 12:20 PM METAL TEMPERER): Chronic, controlled - lisinopril 2.5mg Assessment & [...] omeprazole 20mg Coronary artery disease invo lving [place] coronary artery of [place] heart without angina pectoris 04/17/2022 Assessment & [...] AM CDT): Chronic, stable - celexa 10mg Encounters Date Type Department Care Team Description 03/03/2025 Telephone [facility] Cardiology [address] [place] [address] Delmer Prince MD from Last 3 Months Immunizations Immunization Administration Dates Next Due H1N1 [...] Comments Blood Pressure 137/63 11/20/2022 4:30 PM METAL TEMPERER Pulse 65 11/20/2022 4:55 PM METAL TEMPERER Temperature 36 C (96.8 F) 11/20/2022 10:41 AM METAL TEMPERER Respiratory Rate 18 11/20/2022 10:41 AM METAL TEMPERER Oxygen Saturation 100% 11/20/2022 4:55 PM METAL TEMPERER Inhaled Oxygen Concentration - - Weight 104.8 kg (231 lb) 11/20/2022 10:41 AM METAL TEMPERER Height 177.8 cm (5' 10) 11/13/2022 1:42 PM METAL TEMPERER Body Mass Index 33.15 11/13/2022 1:42 PM METAL TEMPERER Plan of Treatment Health Maintenance Due Date [...] 65+ 04/17/2023 04/17/2022 Hemoglobin A1C 05/13/2023 11/13/2022, 0702/2022, 02/11/2022, Additional history exists eGFR 11/20/2023 11/20/2022, [...] Diagnosis Comments EGFR STAT 11/20/2022 3:11 PM METAL TEMPERER HEMOGLOBIN A1C Routine 11/13/2022 2:20 PM METAL TEMPERER 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, without long-term current use of insulin (HCC) HEPATITIS C RNA, QUANTITATIVE, PCR Routine 05/08/2022 10:08 AM CDT Need for hepatitis C screening test LIPID PANEL Routine 04/17/2022 9:43 AM CDT Coronary artery disease involving [place] coronary artery of [place] heart without angina pectoris ALBUMIN CREATININE RATIO, URINE Routine 04/17/2022 9:43 AM CDT 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, without long-term current use of insulin (HCC) OCCULT BLOOD, FECAL (FIT) Routine 11/22/2017 11:15 AM METAL TEMPERER from Last 3 Months or Most Recently Relevant to Health Maintenance Results * eGFR (11/20/2022 3:11 PM METAL TEMPERER) eGFR 95 mL/min/1. 73 m2 [facility] Comment: Interpretive Data Reference Interval Normal >/= [...] last reviewed 2021. Blood 11/20/2022 3:11 PM METAL TEMPERER 11/20/2022 3:16 PM METAL TEMPERER us Abraham Coello MD LAB BLOOD ORDERABLES Fi nal Result [facility] [address] [place] [address] * (ABNORMAL) Hemoglobin A1c (11/13/2022 2:20 PM METAL TEMPERER) [facility] Hgb A1C 8.6(H) 4.0 - 5.6 % [facility] Estimated Average Glucose 200 mg/dL [facility] Comment: The ADA recommends reporting an estimated Average Glucose (eAG) with all Hemoglobin A1c results using the equation derived from a study of 507 normal and diabetic adults. Minority populations were underrepresented and children were not included. (Diabetes Care 31:0505-6834, 2008). The eAG is not equivalent to a fasting glucose. Blood 11/13/2022 2:20 PM METAL TEMPERER 11/13/2022 2:41 PM METAL TEMPERER us Campbell Bullard Dear DO LAB BLOOD ORDERABLES Fin al Result [facility] [address] [place] [address] * Hepatitis C (HCV) RNA PCR, quantitative (05/08/2022 10:08 AM CDT) [facility] HCV RNA IU/mL HCV Not Detected [...] - 05/10/2022 8:17 AM CDT Performed at: [address] [place] [id number] Vertical Punch Operator: Jamar Cooper MD, Phone: [phone] us Campbell Bullard Dear DO LAB MICROBIOLOGY - GENER AL ORDERABLES Edited Result - Final Performing Organization Address [facility]/ZIP Co de Phone Number [facility] - 01 * (ABNORMAL) Albumin [...] - 04/18/2022 10:10 AM CDT Performed at: [address] [id number] Vertical Punch Operator: Thad Peacock PhD, Phone: [phone] Campbell Bullard Dear DO LAB URINE ORDERABLES Fin al Result Performing Organization Address [facility] Co de Phone Number [facility] - 01 * Lipid panel (04/17/2022 [...] - 04/18/2022 7:10 AM CDT Performed at: [address] [place] [id number] Vertical Punch Operator: Thad Peacock PhD, Phone: [phone] Campbell Bullard Dear DO LAB BLOOD ORDERABLES Fin al Result [facility] - 01 * Occult blood, fecal non neoplasm screening (11/22/2017 11:15 AM METAL TEMPERER) Collection date , feces [id number] [facility] Collection time 1, feces 1,115 [facility] Occult blood, fecal Negative Negative [facility] Stool 11/22/2017 11:1 5 AM METAL TEMPERER 11/22/2017 1:19 PM METAL TEMPERER Narrative [facility] - 11/22/2017 2:38 PM METAL TEMPERER Hakeem Muro DO LAB BODY FLUIDS AND STOOLS ORDERABLES Final Result [facility] [address] [facility] Department [place] [address] from Last 3 Months or Most Recently Relevant to Health Maintenance Insurance [place] [employer] [facility] DUAL COMPLETE [id number] [facility] MEDICARE Address: [address] [place] [address] [employer] [facility] MEDICARE ADVANTAGE [facility] MEDIC[facility] Address: [address] [address] [place] [address] Care Teams Trauma Coordinator Relationship Specialty Start Date End Date Dear, Campbell Bullard DO PCP - General Family Medicine 04/13/22 No, Physician 12/21/16
--- OUTSIDE RECORDS SUMMARY | 2025-03-07 18:02 | XMS_ITS | Continuity of Care Document ---
Author Name [facility] Organization [facility] Care Team Providers Care Housekeeper And Laundry Assistant Name Role Phone [facility] Unavailable Unavailable Problems Combined list of problems from Department of Defense and Veterans Affairs facilities. It does not include entries that were removed or entered in error. Problem Status Onset Date Problem Type Date of Resolution Comments Source Acute Deep Vein Thrombosis of Lower Limb ([facility] [id number]) Active 022 Condition Jan 18, 2022 Entered By: STONE DEL CASTILLO Comment: [facility] with Dr Max Sevilla [facility] Lumbago Active 996 Condition [facility] Adjustment disorder with mixed emotional features Active Condition [facility] Allergic rhinitis Active Condition [facility] Allergic Rhinitis ([facility] [id number]) Active Condition [facility] Bacterial urinary infection Active Condition [facility] Benign essential hypertension Active Condition [facility] Benign Prostatic Hypertrophy Without Outflow Obstruction ([facility] [id number]) Active Condition [facility] CAD - Coronary artery disease Active Condition [facility] CAD - Coronary Artery Disease ([facility] 71999312) Active Condition Jul 26, 2020 Entered By: TI JOSHUA Comment: s/p TX & PCI/stent [facility] CALCANEAL SPUR Active Condition [facility] Cardiomyopathy Active Condition [facility] Cerebral artery occlusion Active Condition [facility] Cerebral infarction Active Condition [facility] Cervical Spinal Stenosis ([facility] [id number]) Active Condition [facility] Chest pain Active Condition [facility] Chronic venous insufficiency Active Condition [facility] Congestive heart failure Active Condition [facility] Coronary arteriosclerosis Active Condition [facility] Coronary arteriosclerosis Active Condition [facility] DANDRUFF Active Condition [facility] Dementia Active Condition [facility] Depression Active Condition [facility] Depressive disorder Active Condition [facility] Diabetes Mellitus Type 2 ([facility] [id number]) Active Condition [facility] Diabetes Mellitus Type II or unspecified with Neurological Manifestations Active Condition May 30, 2013 Entered By: DAMI MAGANA NN Comment: see list of NON VA meds (glipizide / metformin) [facility] Diabetic Neuropathies (ICD-9-CM 250.60/357.2) Active Condition [facility] SAULT DISC DISPLACEMENT NOS Active Condition [facility] DJD Active Condition [facility] Dry Eye Syndrome [facility] Dyslipidemia (ICD-9-CM 272.4) Active Condition [facility] Edema Active Condition [facility] Exposure to potentially hazardous substance Active Condition [facility] FACIAL NERVE DIS NEC Active Condition [facility] Finding related to compliance with treatment Active Condition [facility] Gastroenteritis Active Condition [facility] GERD - Gastro-Esophageal Reflux Disease ([facility] [id number]) Active Condition [facility] Gout Active Condition [facility] H/O: Stroke ([facility] [id number]) Active Condition [facility] HEADACHE Active Condition [facility] Health Maintenance Active Condition N 2008 Entered By: DAMI MAGANA NN Comment: on RX from LMD/doesn't know names/will bring list nxt visit [facility] HERED FRUCTOSE INTOLERAN Active Condition [facility] History of cholecystectomy Active Condition Apr 26, 2020 Entered By: STONE DEL CASTILLO Comment: patient reports done in early 2019 [facility] [place] Plaque Active Condition [facility] Homeless single person Active Condition [facility] Hyperlipidemia Active Condition [facility] Hypertensive disorder Active Condition [facility] IDIO PERIPH NEURPTHY NEC Active Condition [facility] Insect Bite NEC (ICD-9-CM 919.4) Active Condition [facility] Kidney Stone ([facility] [id number]) Active Condition [facility] (current) use of Anticoagulants Active Condition Aug 03, 2009 Entered By: DAMI MAGANA NN Comment: PT TAKES COUMADIN FROM IN COMMUNITY [facility] Low Back Pain Active Condition [facility] Low back pain (SNOMED CT 887439689) Active Condition [facility] Marital/family problems (ICD-9-CM V61.0) Active Condition [facility] Memory loss (ICD-9-CM 780.93) Active Condition [facility] Mood Disorder due to a General Medical Condition (ICD-9-CM 293.83) Active Condition [facility] Normal grief reaction Active Condition [facility] Numbness and tingling sensation of skin Active Condition [facility] Obesity Active Condition [facility] Obesity * (ICD-9-CM 278.00) Active Condition [facility] Osteitis deformans (SNOMED CT 2281700) Active Condition [facility] Osteoarthritis (SCT 425912980) Active Condition Jul 26, 2020 Entered By: TI JOSHUA Comment: s/p B [facility]KA'[facility] Osteoarthritis * (ICD-9-CM 715.90) Active Condition [facility] Other General Symptoms (ICD-9-CM 780.9) Active Condition Nov 18, 2001 Entered By: KAYCEE ISRAEL Comment: Episodic loss of consciousness [facility] OTHER SEBORRHEIC DERMATITIS Active Condition [facility] Overactive bladder Active Condition [facility] PAGET'S DISEASE Active Condition [facility] POSTTRAUM STRESS Active Condition [facility] PVD * (ICD-9-CM 443.9) Active Condition [facility] Relationship distress with spouse or intimate partner Active Condition [facility] Restless legs Active Condition [facility] SKIN ANOMALY NEC Active Condition [facility] Sleep Apnea (SCT 77533931) Active Condition Jul 26, 2020 Entered By: TI JOSHUA Comment: intolerant of CPAP [facility] Spinal Stenosis of Lumbar Region (SCT 65785642) Active Condition [facility] Sprain of unspecified site of knee and leg (ICD-9-CM 844.9) Active Condition [facility] SURGERY FOLLOW-UP Active Condition [facility] Tick bite Active Condition [facility] Type II diabetes mellitus uncontrolled Active Condition [facility] Unresolved Active Condition [facility] URIN TRACT INFECTION NOS Active Condition [facility] Vascular dementia (SNOMED CT 383940859) Active Condition [facility] Vision, abnormal Active Condition [facility] Vitamin D deficiency Active Condition [facility] Xeroderma Active Condition [facility] Acute conjunctivitis (ICD-9-CM 372.00) Inactive Condition 08/03/[address] [facility] Acute sinusitis (ICD-9-CM 461.9) Inactive Condition 08/03/2009 [facility] DM Type II w/o Eye Disease Inactive Condition 08/03/2009 [facility] Gastroenteritis * (ICD-9-CM 558.9) Inactive Condition 08/03/2009 [facility] Hip: arthralgia (pain on rotation, pain in groin) * (ICD-9-CM 719.45) Inactive Condition 08/03/[address] [facility] Influenza * (ICD-9-CM 487.1) Inactive Condition 08/03/2009 [facility] Diagnosis: ICD-10-CM Z51.81 Encounter for therapeutic drug level monitoring Active Diagnosis [facility] Diagnosis: ICD-10-CM I82.409 Acute embolism and thombos unsp deep vn unsp lower extremity Active Diagnosis [facility] Diagnosis: ICD-10-CM Z13.5 Encounter for screening for eye and ear disorders Active Diagnosis [facility] Diagnosis: ICD-10-CM E11.9 Type 2 diabetes mellitus without complications Active Diagnosis [facility] Diagnosis: ICD-10-CM Z79.899 Other correction (current) drug therapy Active Diagnosis [facility] Diagnosis: ICD-10-CM I25.10 Athscl heart disease of [place] coronary artery w/o ang pctrs Active Diagnosis [facility] Diagnosis: ICD-10-CM M25.562 Pain in left knee Active Diagnosis [facility] Diagnosis: ICD-10-CM M79.605 Pain in left leg Active Diagnosis 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 Active Diagnosis [facility] Medications Combined list of outpatient medications [...] FOR ANTICOAG ULATION ORAL SUSPEND ED 12/31/2025 [id number] AMILCAR SHERWOOD S 2024 90 [facility] APIXABAN 5MG TAB TAKE ONE-HALF TABLET BY MOUTH TWICE A DAY FOR ANTICOAG ULATION ORAL DISCONT INUED 01/22/2025 [id number] 5 BARBARA HUNT 2024 60 [facility] APIXABAN 5MG TAB TAKE ONE-HALF TABLET BY MOUTH TWICE A DAY FOR ANTICOAG ULATION ORAL DISCONT INUED (EDIT) 12/23/2024 [id number] 4 BARBARA HUNT 2023 90 [facility] ATORVASTATI N CA 80MG TAB TAKE ONE-HALF TABLET BY MOUTH EVERY EVENING TO LOWER CHOLESTE ROL ORAL ACTIVE 12/16/2025 [id number] 5 LUIS MANUEL,NI DHI [address] [facility] DULAGLUTIDE 1.5MG/0.5ML INJ,SOLN,PE N INJECT 1.5MG/0. 5ML UNDER THE SKIN EVERY WEEK SUBCUT ANEOUS ACTIVE MARY ELLEN DEL CASTILLO [address] [place] [facility] DULAGLUTIDE 1.5MG/0.5ML INJ,SOLN,PE N INJECT 1.5MG (0.5ML) SUBCUTAN EOUSLY EVERY WEEK SUBCUT ANEOUS ACTIVE TARA JOSHUA VIDHI 2019 [facility] EMPAGLIFLOZ IN 5MG/METFORM IN 1000MG TAB,ORAL TAKE ONE TABLET BY MOUTH TWICE A DAY ORAL ACTIVE MARY ELLEN DEL CASTILLO 2021 [facility] EMPAGLIFLOZ IN 5MG/METFORM IN 1000MG TAB,ORAL TAKE ONE TABLET BY MOUTH TWO TIMES A DAY ORAL ACTIVE TARA JOSHUA VIDHI 2019 [facility] GABAPENTIN 300MG CAP TAKE ONE CAPSULE BY MOUTH TWICE A DAY FOR PAIN ORAL ACTIVE 12/16/2025 [id number] 5 LUIS MANUEL,NI I 2024 [address] [facility] GABAPENTIN 300MG CAP TAKE ONE CAPSULE BY MOUTH TWICE A DAY FOR PAIN ORAL 12/06/2024 [id number] 4 José Miguel TOURE 2023 180 [facility] LISINOPRIL 5MG TAB TAKE ONE-HALF TABLET BY MOUTH ONCE A DAY FOR HEART OR BLOOD PRESSURE ORAL ACTIVE 12/16/2025 [id number] 5 LUIS MANUEL,NI DHI 2024 [address] [facility] OMEPRAZOLE 20MG CAP,EC TAKE ONE CAPSULE BY MOUTH TWICE A DAY TO LOWER STOMACH ACID. TAKE 30 MINUTES PRIOR TO FOOD. ORAL ACTIVE 12/16/2025 [id number] 5 LUIS MANUEL,NI DHI 2024 [address] [facility] OMEPRAZOLE 20MG CAP,EC TAKE ONE CAPSULE BY MOUTH TWICE A DAY TO LOWER STOMACH ACID. TAKE 30 MINUTES PRIOR TO FOOD. ORAL DISCONT INUED 05/12/2025 [id number] 5 José Miguel TOURE 2023 [address] [facility] OMEPRAZOLE 20MG CAP,EC TAKE ONE CAPSULE BY MOUTH TWICE A DAY TO LOWER STOMACH ACID. TAKE 30 MINUTES PRIOR TO FOOD. ORAL DISCONT INUED 05/07/2024 [id number] MARY ELLEN DEL CASTILLO 2022 [address] [facility] SERTRALINE HCL 50MG TAB TAKE ONE-HALF TABLET BY MOUTH EVERY MORNING ORAL ACTIVE 12/16/2025 [id number] CHRISTOPHER ISSA DHI 2024 [address] [facility] SERTRALINE HCL 50MG TAB TAKE ONE-HALF TABLET BY MOUTH EVERY MORNING FOR DEPRESSI ON ORAL DISCONT INUED 06/24/2025 [id number] 5 LALIROGER JIMI 2023 [address] [facility] SERTRALINE HCL 50MG TAB TAKE ONE-HALF TABLET BY MOUTH EVERY MORNING FOR DEPRESSI ON ORAL DISCONT INUED 12/17/2024 [id number] 4 ROGER ESCALERAA 2023 [address] [facility] TAMSULOSIN HCL 0.4MG CAP TAKE ONE CAPSULE BY MOUTH EVERY EVENING APPROXIM ATELY 30 MINUTES AFTER THE SAME MEAL EACH DAY (FOR PROSTATE ) ORAL ACTIVE 12/16/2025 [id number] 5 CHRISTOPHER ISSA I 2024 90 [facility] [facility] Allergies, Adverse Reactions, Alerts Combined list of [...] adverse reactions to drug (finding) active 5 [facility] METFORMIN Propensity to adverse reactions to drug (finding) Diarrhea active 3 [facility] MORPHINE Propensity to adverse reactions to drug (finding) Physical aggression active 2 [facility] OXCARBAZEPIN E Propensity to adverse reactions to drug (finding) Psychotic disorder active 2 [facility] PENICILLIN Propensity to adverse reactions to drug (finding) active 5 [facility] PENICILLIN Propensity to adverse reactions to drug (finding) HIVES active 3 [facility] PENICILLIN Propensity to adverse reactions to drug (finding) Urticaria active 0 [place] MIKAEL BAILEY 15 TRAZODONE Propensity to adverse reactions to drug (finding) Bleeding active [address] [facility] Immunizations Combined list of available immunizations from the Department of Defense and Veterans Affairs facilities. Immunization Series Date Given Administered By Site Reaction Lot Number CVX Code Drug Simplex Printer Installer Status Comments Source INFLUENZA, UNSPECIFIED FORMULATION 2020 88 complet ed [facility], VISN 15 INFLUENZA, SEASONAL, INJECTABLE, PRESERVATIVE FREE 2016 140 complet ed [facility] PNEUMOCOCCAL CONJUGATE PCV 13 2016 133 complet ed [facility] INFLUENZA, UNSPECIFIED FORMULATION 2014 88 complet ed NOVARTIS/ [id number]/ [facility] PNEUMOCOCCAL CONJUGATE PCV 13 [address] [facility] INFLUENZA, UNSPECIFIED FORMULATION 2013 88 complet ed as per [facility] PNEUMOCOCCAL POLYSACCHARID E PPV23 2013 33 complet ed Merck/Lot # [id number], January 30, [address] [facility] INFLUENZA, UNSPECIFIED FORMULATION 2013 88 complet ed CSL BIOTHERAP IES/[id number] [facility] INFLUENZA, UNSPECIFIED FORMULATION 2012 88 complet ed Glaxo-Kli ne/[id number] [facility] INFLUENZA (HISTORICAL) 2011 88 complet ed Novartis/ Lot# [id number] [facility] TDAP 2011 115 complet ed Sanofi Pasteur/L ot# [id number] [facility] INFLUENZA (HISTORICAL) [address] [facility] NOVEL INFLUENZA-H1N 1-09, ALL FORMULATIONS 2009 128 complet ed Novartis/ Lot# [id number] [facility] INFLUENZA (HISTORICAL) 2008 NONE 88 complet ed Completed Series, Left Deltoid [facility] [place] [facility] PNEUMOCOCCAL POLYSACCHARID E PPV23 2008 33 complet ed Right Deltoid [facility] INFLUENZA (HISTORICAL) 2007 88 complet ed [facility] INFLUENZA (HISTORICAL) 2006 88 complet ed Left Deltoid [facility] INFLUENZA (HISTORICAL) 2005 88 complet ed Left Deltoid [facility] INFLUENZA (HISTORICAL) 2004 88 complet ed Left Deltoid [facility] INFLUENZA (HISTORICAL) 2003 88 complet ed Left Deltoid [facility] PNEUMOCOCCAL POLYSACCHARID E PPV23 2003 33 complet ed Left Deltoid [facility] INFLUENZA (HISTORICAL) 2002 88 complet ed Left Deltoid [facility] INFLUENZA (HISTORICAL) 2000 88 complet ed [facility] TD(ADULT) UNSPECIFIED FORMULATION 2000 139 complet ed [facility] TETANUS TOXOID, UNSPECIFIED FORMULATION 1997 KAYCEE [...] Reporting Lab: [facility] [address] [facility] [phone] Performing Lab: [facility] [address] [place] [phone] [facility] LIPID PANEL (STL) CHOLESTEROL [MASS/VOLUM E] IN SERUM OR PLASMA 90 mg/dL 0 - 200 12/16 Specimen Type: PLASMA Comment: No hemolysis noted. Ordering Provider: LIZA ISSA W[place] Report Released Date/Time: Dec 11, 2024 04:22 PM Reporting Lab: [facility] [address] [facility] [phone] Performing Lab: [facility] [address] [facility] [address] [facility] LIPID PANEL (STL) TRIGLYCERID E [MASS/VOLUM E] IN SERUM OR PLASMA 63 mg/dL 0 - 150 12/16 Specimen Type: PLASMA Comment: No hemolysis noted. Ordering Provider: LIZA ISSA Report Released Date/Time: Dec 11, 2024 04:22 PM Reporting Lab: [facility] [address] [facility] [phone] Performing Lab: [facility] [address] [facility] [phone] [facility] LIPID PANEL (STL) CHOLESTEROL IN LDL [MASS/VOLUM E] IN SERUM OR PLASMA BY CALCULATION 32 mg/dL 12/16 Specimen Type: PLASMA Comment: No hemolysis noted. Ordering Provider: LIZA ISSA Report Released Date/Time: Dec 11, 2024 04:22 PM Reporting Lab: [facility] [address] [facility] [phone] Performing Lab: [facility] [address] [facility] [phone] [facility] LIPID PANEL (STL) CHOLESTEROL IN HDL [MASS/VOLUM E] IN SERUM OR PLASMA 45 mg/dL 40 12/16 Specimen Type: PLASMA Comment: No hemolysis noted. Ordering Provider: LIZA ISSA Report Released Date/Time: Dec 11, 2024 04:22 PM Reporting Lab: [facility] [address] [facility] [phone] Performing Lab: [facility] [address] [facility] [phone] [facility] MICRAL/CR EAT PROFILE (STL) ALBUMIN [MASS/VOLUM E] IN URINE 226.8 mg/L 12/16 Specimen Type: URINE No comment entered. Ordering Provider: LIZA ISSA Report Released Date/Time: Dec 11, 2024 04:22 PM Reporting Lab: [facility] [address] [facility] [phone] Performing Lab: [facility] [address] [facility] [phone] [facility] MICRAL/CR EAT PROFILE (STL) ALBUMIN/CRE ATININE [MASS RATIO] IN URINE 422 mg/g 0 - 29 12/16 H Specimen Type: URINE No comment entered. Ordering Provider: LIZA ISSA Report Released Date/Time: Dec 11, 2024 04:22 PM Reporting Lab: [facility] [address] [facility] [address] Performing Lab: [facility] [address] [facility] [address] [facility] MICRAL/CR EAT PROFILE (STL) CREATININE [MASS/VOLUM E] IN URINE 53.7 mg/dL 63 - 166 12/16 L Specimen Type: URINE No comment entered. Ordering Provider: LIZA ISSA Report Released Date/Time: Dec 11, 2024 04:22 PM Reporting Lab: [facility] [address] [place] [phone] Performing Lab: [facility] [address] [place] [phone] [facility] COMPREHEN SIVE METABOLIC PANEL CREATININE [MASS/VOLUM E] IN SERUM OR PLASMA 0.90 mg/dL 0.7 - 1.3 12/16 Specimen Type: PLASMA Comment: No hemolysis noted. Ordering Provider: LIZA ISSA Report Released Date/Time: Dec 11, 2024 04:22 PM Reporting Lab: [facility] [address] [place] [phone] Performing Lab: [facility] [address] [facility] [phone] [facility] COMPREHEN SIVE METABOLIC PANEL UREA NITROGEN [MASS/VOLUM E] IN SERUM OR PLASMA 19.8 mg/dL 9.0 - 25.0 12/16 Specimen Type: PLASMA Comment: No hemolysis noted. Ordering Provider: LIZA ISSA Report Released Date/Time: Dec 11, 2024 04:22 PM Reporting Lab: [facility] [address] [facility] [phone] Performing Lab: [facility] [address] [place] [phone] [facility] COMPREHEN SIVE METABOLIC PANEL GLUCOSE [MASS/VOLUM E] IN SERUM OR PLASMA 167 mg/dL 72 - 99 12/16 H Specimen Type: PLASMA Comment: No hemolysis noted. Ordering Provider: LIZA ISSA Report Released Date/Time: Dec 11, 2024 04:22 PM Reporting Lab: [facility] [address] [facility] [address] Performing Lab: [facility] [address] [facility] [address] [facility] COMPREHEN SIVE METABOLIC PANEL SODIUM [MOLES/VOLU ME] IN SERUM OR PLASMA 139 meq/L 136 - 145 12/16 Specimen Type: PLASMA Comment: No hemolysis noted. Ordering Provider: LIZA ISSA Report Released Date/Time: Dec 11, 2024 04:22 PM Reporting Lab: [facility] [address] [facility] [phone] Performing Lab: [facility] [address] [facility] [phone] [facility] COMPREH[facility]IVE METABOLIC PANEL POTASSIUM [MOLES/VOLU ME] IN SERUM OR PLASMA 4.0 meq/L 3.5 - 5 12/16 Specimen Type: PLASMA Comment: No hemolysis noted. Ordering Provider: LIZA ISSA Report Released Date/Time: Dec 11, 2024 04:22 PM Reporting Lab: [facility] [address] [facility] [address] Performing Lab: [facility] [address] [facility] [address] [facility] COMPREHEN SIVE METABOLIC PANEL CHLORIDE [MOLES/VOLU ME] IN SERUM OR PLASMA 102 meq/L 98 - 107 12/16 Specimen Type: PLASMA Comment: No hemolysis noted. Ordering Provider: LIZA ISSA Report Released Date/Time: Dec 11, 2024 04:22 PM Reporting Lab: [facility] [address] [facility] [phone] Performing Lab: [facility] [address] [facility] [phone] [facility] COMPREHEN SIVE METABOLIC PANEL CARBON DIOXIDE, TOTAL [MOLES/VOLU ME] IN SERUM OR PLASMA 26 meq/L 22 - 31 12/16 Specimen Type: PLASMA Comment: No hemolysis noted. Ordering Provider: LIZA ISSA Report Released Date/Time: Dec 11, 2024 04:22 PM Reporting Lab: [facility] [address] [facility] [phone] Performing Lab: [facility] [address] [place] [phone] [facility] COMPREHEN SIVE METABOLIC PANEL CALCIUM [MASS/VOLUM E] IN SERUM OR PLASMA 10.0 mg/dL 8.4 - 10.4 12/16 Specimen Type: PLASMA Comment: No hemolysis noted. Ordering Provider: LIZA ISSA Report Released Date/Time: Dec 11, 2024 04:22 PM Reporting Lab: [facility] [address] [place] [phone] Performing Lab: [facility] [address] [facility] [phone] [facility] COMPREHEN SIVE METABOLIC PANEL PROTEIN [MASS/VOLUM E] IN SERUM OR PLASMA 7.9 g/dL 6 - 8.6 12/16 Specimen Type: PLASMA Comment: No hemolysis noted. Ordering Provider: LIZA ISSA Report Released Date/Time: Dec 11, 2024 04:22 PM Reporting Lab: [facility] [address] [facility] [address] Performing Lab: [facility] [address] [facility] [address] [facility] COMPREHEN SIVE METABOLIC PANEL ALBUMIN [MASS/VOLUM E] IN SERUM OR PLASMA 4.2 g/dL 3.4 - 5 12/16 Specimen Type: PLASMA Comment: No hemolysis noted. Ordering Provider: LIZA ISSA Report Released Date/Time: Dec 11, 2024 04:22 PM Reporting Lab: [facility] [address] [facility] [address] Performing Lab: [facility] [address] [place] [address] [facility] COMPREHEN SIVE METABOLIC PANEL BILIRUBIN.T OTAL [MASS/VOLUM E] IN SERUM OR PLASMA 0.5 mg/dL 0.2 - 1.2 12/16 Specimen Type: PLASMA Comment: No hemolysis noted. Ordering Provider: LIZA ISSA Report Released Date/Time: Dec 11, 2024 04:22 PM Reporting Lab: [facility] [address] [facility] [address] Performing Lab: [facility] [address] [facility] [address] [facility] COMPREHEN SIVE METABOLIC PANEL ALKALINE PHOSPHATASE [ENZYMATIC ACTIVITY/VO LUME] IN SERUM OR PLASMA 133 U/L 40 - 150 12/16 Specimen Type: PLASMA Comment: No hemolysis noted. Ordering Provider: LIZA ISSA Report Released Date/Time: Dec 11, 2024 04:22 PM Reporting Lab: [facility] [address] [facility] [address] Performing Lab: [facility] [address] [facility] [address] [facility] COMPREHEN SIVE METABOLIC PANEL ASPARTATE AMINOTRANSF ERASE [ENZYMATIC ACTIVITY/VO LUME] IN SERUM OR PLASMA 27 U/L 5 - 34 12/16 Specimen Type: PLASMA Comment: No hemolysis noted. Ordering Provider: LIZA ISSA Report Released Date/Time: Dec 11, 2024 04:22 PM Reporting Lab: [facility] [address] [facility] [address] Performing Lab: [facility] [address] [facility] [address] [facility] COMPREHEN SIVE METABOLIC PANEL ALANINE AMINOTRANSF ERASE [ENZYMATIC ACTIVITY/VO LUME] IN SERUM OR PLASMA 16 U/L 8 - 40 12/16 Specimen Type: PLASMA Comment: No hemolysis noted. Ordering Provider: LIZA ISSA Report Released Date/Time: Dec 11, 2024 04:22 PM Reporting Lab: [facility] [address] [facility] [address] Performing Lab: [facility] [address] [facility] [address] [facility] COMPREHEN SIVE METABOLIC PANEL GLOMERULAR FILTRATION RATE/1.73 SQ M.PREDICTED [VOLUME RATE/AREA] IN SERUM, PLASMA OR BLOOD BY CREATININE- BASED FORMULA (CKD-EPI 2020) 86.9 60 12/16 Specimen Type: PLASMA Comment: No hemolysis noted. Ordering Provider: LIZA ISSA Report Released Date/Time: Dec 11, 2024 04:22 PM Reporting Lab: [facility] [address] [place] [address] Performing Lab: [facility] [address] [place] [phone] [place] [address] HGA1C HEMOGLOBIN A1C/HEMOGLO BIN.TOTAL IN BLOOD 7.1 4.0 - 6.0 08/11 H Specimen Type: BLOOD No comment entered. Ordering Provider: JEANINE CARDENAS Report Released Date/Time: Aug 11, 2024 02:09 PM Reporting Lab: [address] [address] Performing Lab: [address] [address] [facility] LIPID PANEL (STL) CHOLESTEROL [MASS/VOLUM E] IN SERUM OR PLASMA 98 mg/dL 0 - 200 08/11 Specimen Type: PLASMA Comment: No hemolysis noted. Ordering Provider: JEANINE CARDENAS Report Released Date/Time: Aug 11, 2024 02:09 PM Reporting Lab: [facility] [address] [place] [address] Performing Lab: [address] [address] [facility] LIPID PANEL (STL) TRIGLYCERID E [MASS/VOLUM E] IN SERUM OR PLASMA 51 mg/dL 0 - 150 08/11 Specimen Type: PLASMA Comment: No hemolysis noted. Ordering Provider: JEANINE CARDENAS Report Released Date/Time: Aug 11, 2024 02:09 PM Reporting Lab: [facility] [address] [place] [address] Performing Lab: [address] [address] [facility] LIPID PANEL (STL) CHOLESTEROL IN LDL [MASS/VOLUM E] IN SERUM OR PLASMA BY CALCULATION 43 mg/dL 08/11 Specimen Type: PLASMA Comment: No hemolysis noted. Ordering Provider: JEANINE CARDENAS Report Released Date/Time: Aug 11, 2024 02:09 PM Reporting Lab: [facility] [address] [facility] [address] Performing Lab: [address] [address] [facility] LIPID PANEL (STL) CHOLESTEROL IN HDL [MASS/VOLUM E] IN SERUM OR PLASMA 45 mg/dL 40 08/11 Specimen Type: PLASMA Comment: No hemolysis noted. Ordering Provider: JEANINE CARDENAS Report Released Date/Time: Aug 11, 2024 02:09 PM Reporting Lab: [address] [address] Performing Lab: [address] [address] [facility] TSH (MA-PB) THYROTROPIN [UNITS/VOLU ME] IN SERUM OR PLASMA 3.281 u[IU]/ mL 0.47 - 5 08/11 Specimen Type: SERUM No comment entered. Ordering Provider: JEANINE CARDENAS Report Released Date/Time: Aug 11, 2024 02:09 PM Reporting Lab: [facility] [address] [place] [address] Performing Lab: [address] [address] [facility] VITAMIN D, 25-HYDROX Y 25-HYDROXYV ITAMIN D3 [MASS/VOLUM E] IN SERUM OR PLASMA 31.4 ng/mL 30 - 96 08/11 Specimen Type: SERUM No comment entered. Ordering Provider: JEANINE CARDENAS Report Released Date/Time: Aug 11, 2024 02:09 PM Reporting Lab: [facility] [address] [facility] [address] Performing Lab: [address] [address] [facility] B12 COBALAMIN (VITAMIN B12) [MASS/VOLUM E] IN SERUM OR PLASMA 400 pg/mL 213 - 816 08/11 Specimen Type: SERUM No comment entered. Ordering Provider: JEANINE CARDENAS Report Released Date/Time: Aug 11, 2024 02:09 PM Reporting Lab: [facility] [address] [facility] [address] Performing Lab: [facility] [address] [place] [address] [facility] COMPREHEN SIVE METABOLIC PANEL CREATININE [MASS/VOLUM E] IN SERUM OR PLASMA 1.18 mg/dL 0.7 - 1.3 08/11 Specimen Type: PLASMA Comment: No hemolysis noted. Ordering Provider: JEANINE CARDENAS Report Released Date/Time: Aug 11, 2024 02:09 PM Reporting Lab: [facility] [address] [place] [address] Performing Lab: [address] [address] [facility] COMPREHEN SIVE METABOLIC PANEL UREA NITROGEN [MASS/VOLUM E] IN SERUM OR PLASMA 23.5 mg/dL 9.0 - 25.0 08/11 Specimen Type: PLASMA Comment: No hemolysis noted. Ordering Provider: JEANINE CARDENAS Report Released Date/Time: Aug 11, 2024 02:09 PM Reporting Lab: [address] [address] Performing Lab: [facility] [address] [place] [address] [facility] COMPREHEN SIVE METABOLIC PANEL GLUCOSE [MASS/VOLUM E] IN SERUM OR PLASMA 94 mg/dL 72 - 99 08/11 Specimen Type: PLASMA Comment: No hemolysis noted. Ordering Provider: JEANINE CARDENAS Report Released Date/Time: Aug 11, 2024 02:09 PM Reporting Lab: [facility] [address] [place] [address] Performing Lab: [address] [address] [facility] COMPREHEN SIVE METABOLIC PANEL SODIUM [MOLES/VOLU ME] IN SERUM OR PLASMA 139 meq/L 136 - 145 08/11 Specimen Type: PLASMA Comment: No hemolysis noted. Ordering Provider: JEANINE CARDENAS Report Released Date/Time: Aug 11, 2024 02:09 PM Reporting Lab: [facility] [address] [facility] [address] Performing Lab: [facility] [address] [facility] [address] [facility] COMPREHEN SIVE METABOLIC PANEL POTASSIUM [MOLES/VOLU ME] IN SERUM OR PLASMA 4.2 meq/L 3.5 - 5 08/11 Specimen Type: PLASMA Comment: No hemolysis noted. Ordering Provider: JEANINE CARDENAS Report Released Date/Time: Aug 11, 2024 02:09 PM Reporting Lab: [facility] [address] [place] [address] Performing Lab: [facility] [address] [place] [address] [facility] COMPREHEN SIVE METABOLIC PANEL CHLORIDE [MOLES/VOLU ME] IN SERUM OR PLASMA 105 meq/L 98 - 107 08/11 Specimen Type: PLASMA Comment: No hemolysis noted. Ordering Provider: JEANINE CARDENAS Report Released Date/Time: Aug 11, 2024 02:09 PM Reporting Lab: [facility] [address] [place] [address] Performing Lab: [facility] [address] [place] [address] [facility] COMPREHEN SIVE METABOLIC PANEL CARBON DIOXIDE, TOTAL [MOLES/VOLU ME] IN SERUM OR PLASMA 24 meq/L 22 - 31 08/11 Specimen Type: PLASMA Comment: No hemolysis noted. Ordering Provider: JEANINE CARDENAS Report Released Date/Time: Aug 11, 2024 02:09 PM Reporting Lab: [facility] [address] [facility] [address] Performing Lab: [facility] [address] [place] [address] [facility] COMPREHEN SIVE METABOLIC PANEL CALCIUM [MASS/VOLUM E] IN SERUM OR PLASMA 9.7 mg/dL 8.4 - 10.4 08/11 Specimen Type: PLASMA Comment: No hemolysis noted. Ordering Provider: JEANINE CARDENAS Report Released Date/Time: Aug 11, 2024 02:09 PM Reporting Lab: [facility] [address] [place] [address] Performing Lab: [facility] [address] [place] [address] [facility] COMPREHEN SIVE METABOLIC PANEL PROTEIN [MASS/VOLUM E] IN SERUM OR PLASMA 7.7 g/dL 6 - 8.6 08/11 Specimen Type: PLASMA Comment: No hemolysis noted. Ordering Provider: JEANINE CARDENAS Report Released Date/Time: Aug 11, 2024 02:09 PM Reporting Lab: [address] [address] Performing Lab: [address] [address] [facility] COMPREHEN SIVE METABOLIC PANEL ALBUMIN [MASS/VOLUM E] IN SERUM OR PLASMA 3.9 g/dL 3.4 - 5 08/11 Specimen Type: PLASMA Comment: No hemolysis noted. Ordering Provider: JEANINE CARDENAS Report Released Date/Time: Aug 11, 2024 02:09 PM Reporting Lab: [facility] [address] [facility] [address] Performing Lab: [facility] [address] [place] [address] [facility] COMPREHEN SIVE METABOLIC PANEL BILIRUBIN.T OTAL [MASS/VOLUM E] IN SERUM OR PLASMA 0.5 mg/dL 0.2 - 1.2 08/11 Specimen Type: PLASMA Comment: No hemolysis noted. Ordering Provider: JEANINE CARDENAS Report Released Date/Time: Aug 11, 2024 02:09 PM Reporting Lab: [facility] [address] [place] [address] Performing Lab: [facility] [address] [place] [address] [facility] COMPREHEN SIVE METABOLIC PANEL ALKALINE PHOSPHATASE [ENZYMATIC ACTIVITY/VO LUME] IN SERUM OR PLASMA 132 U/L 40 - 150 08/11 Specimen Type: PLASMA Comment: No hemolysis noted. Ordering Provider: JEANINE CARDENAS Report Released Date/Time: Aug 11, 2024 02:09 PM Reporting Lab: [address] [address] Performing Lab: [address] [address] [facility] COMPREHEN SIVE METABOLIC PANEL ASPARTATE AMINOTRANSF ERASE [ENZYMATIC ACTIVITY/VO LUME] IN SERUM OR PLASMA 20 U/L 5 - 34 08/11 Specimen Type: PLASMA Comment: No hemolysis noted. Ordering Provider: JEANINE CARDENAS Report Released Date/Time: Aug 11, 2024 02:09 PM Reporting Lab: [address] [address] Performing Lab: [address] [address] [facility] COMPREHEN SIVE METABOLIC PANEL ALANINE AMINOTRANSF ERASE [ENZYMATIC ACTIVITY/VO LUME] IN SERUM OR PLASMA 17 U/L 8 - 40 08/11 Specimen Type: PLASMA Comment: No hemolysis noted. Ordering Provider: JEANINE CARDENAS Report Released Date/Time: Aug 11, 2024 02:09 PM Reporting Lab: [address] [address] Performing Lab: [address] [address] [facility] COMPREHEN SIVE METABOLIC PANEL GLOMERULAR FILTRATION RATE/1.73 SQ M.PREDICTED [VOLUME RATE/AREA] IN SERUM, PLASMA OR BLOOD BY CREATININE- BASED FORMULA (CKD-EPI 2020) 63.2 60 08/11 Specimen Type: PLASMA Comment: No hemolysis noted. Ordering Provider: JEANINE CARDENAS Report Released Date/Time: Aug 11, 2024 02:09 PM Reporting Lab: [address] [address] Performing Lab: [facility] [address] [facility] [address] [facility] Vital Signs Combined list of inpatient and outpatient Vital Signs from Department of Defense and Veterans Affairs, ranging from 12 months to all on record, depending upon the facility. Vital Sign Value Date Comments Source SYSTOLIC BLOOD PRESSURE 139 12/16/19 12:52:02 [facility] DIASTOLIC BLOOD PRESSURE 74 025 12:52:02 [facility] PULSE OXIMETRY 96 12/15/2024 12:52:02 [facility] WEIGHT 215.8 12/15/2024 12:52:02 [facility] BMI 29 kg/m2 12/15/2024 12:52:02 [facility] PAIN 0 12/15/2024 12:52:02 [facility] HEIGHT 72 12/15/2024 12:52:02 [facility] TEMPERATURE 98 12/15/2024 12:52:02 [facility] PULSE 63 12/15/2024 12:52:02 [facility] RESPIRATION 16 12/15/2024 12:52:02 [facility] SYSTOLIC BLOOD PRESSURE 135 08/11/20 13:38:00 [facility] DIASTOLIC BLOOD PRESSURE 70 024 13:38:00 [facility] PULSE OXIMETRY 97 08/11/2024 13:38:00 [facility] WEIGHT 198 08/11/2024 13:38:00 [facility] BMI 26 kg/m2 08/11/2024 13:38:00 [facility] PAIN 0 08/11/2024 13:38:00 [facility] HEIGHT 73 08/11/2024 13:38:00 [facility] TEMPERATURE 98 08/11/2024 13:38:00 [facility] PULSE 65 08/11/2024 13:38:00 [facility] RESPIRATION 16 08/11/2024 13:38:00 [facility] Encounters Combined list of: 1) Encounters from Department of Veterans Affairs facilities going backup to the last 18 months, not all VA inpatient encounters are included; 2) Encounters from the Department of Defense facilities going backup to 280 months. Location Location Details Encounter Type Encounter Number Reason For Visit Attending Provider ADM Date DC Date Status Disposition Source [facility] Outpatient Encounter [id number] 09/18 [place] [facility] [place] [facility] QNHP OL DIG ASSMT&MGMT 5-10 [id number] Diagnos is: ICD-10- CM Z79.01 [facility] (curren t) use of anticoa BARBARA Martinez 09/20 [place] [facility] Outpatient Encounter [id number] 09/26 [facility] [place] [facility] Outpatient Encounter [id number] 09/30 [place] [facility] Outpatient Encounter [id number] 10[facility]04 [facility] En[facility] [id number] 10/20 [facility] Outpatient Encounter [id number] 11/07 [facility] [place] [facility] Outpatient Encounter [id number] 11/12 [place] [facility] [place] [facility] Outpatient Encounter [id number] ALBINO OSBORN 11/13 [place] [facility] [place] [facility] Outpatient Encounter [id number] [place] [facility] Outpatient Encounter [id number] 12/01 [facility] [place] [facility] Outpatient Encounter [id number] JILL MARTINES 12[facility]01 [facility] En[facility] [id number] 12/08 [facility] [place] [facility] Outpatient Encounter [id number] 12/08 [facility] En[facility] [id number] Gabe BOLDEN 12/12 [facility] FEE [id number] Diagnos is: ICD-10- CM F33.40 Major depress rigoberto disorde r, recurre nt, in remissi on, unsp ESCALERA,12/16 [facility] OFFICE O/P EST LOW 20 MIN [id number] Diagnos is: ICD-10- CM F33.40 Major depress rigoberto disorde r, recurre nt, in remissi on, unsp ,12/16 [facility] EMERGENCY DEPT VISIT MOD MDM [id number] Diagnos is: ICD-10- CM M79.605 Pain in left leg PRECIOUS DIAL S 12/19 [facility] Outpatient Encounter [id number] PRECIOUS DIAL S 12/19 [facility] GAIT TRAINING THERAPY [id number] Diagnos is: ICD-10- CM M25.562 Pain in left knee RAMY JUDGE L 12/19 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 Outpatient Encounter [id number] 01/27 [facility] [place] [facility] Outpatient Encounter [id number] KAIA SUAREZ 02/03 [place] [facility] [place] [facility] Outpatient Encounter [id number] 02/24 [place] [facility] Outpatient Encounter [id number] 02/25 [facility] Outpatient Encounter [id number] 02/26 [facility] Outpatient Encounter [id number] 02/26 [facility] Outpatient Encounter [id number] GLEN PARADA 03/05 [facility] Outpatient Encounter [id number] 05/[address] [facility] En[facility] [id number] 07/01 [facility] Outpatient Encounter [id number] 07/[address] [facility] En[facility] [id number] CAIO GALVAN 07/17 [facility] Outpatient Encounter [id number] 07/20 [facility] MTMS BY PHARM GALLERY OR MUSEUM ATTENDANT 15 MIN [id number] Diagnos is: ICD-10- CM Z79.899 Other correction (curren t) drug therapy ELMER CERNA 07/23 [facility] En[facility] [id number] 07/27 [facility] Encounter [id number] RONALD JOHNSON 07/28 [facility] Encounter [id number] 08/05 [facility] Outpatient Encounter [id number] HECTOR CARDENASA D 08/05 [facility] Outpatient Encounter [id number] RONALD,JEANINE D 08/09 [facility] Outpatient Encounter [id number] SIMIN LEE C 08/11 [facility] Outpatient Encounter [id number] JEANINE CARDENAS D 08/12 [facility] Encounter [id number] SIMIN LEE 08/21 [facility] Encounter [id number] 08/23 [facility] Outpatient Encounter [id number] DAVID TOURE 08/25 [facility] Encounter [id number] RONALDJEANINE D 08/25 [facility] Encounter [id number] MYA FOSTER 10/03 [facility] [facility] Outpatient Encounter [id number] 03/02 /2025 [place] [facility] Outpatient Encounter [id number] 12/04 [facility] Outpatient Encounter [id number] SIMIN LEE 12/07 [facility] Outpatient Encounter [id number] JEANINE CARDENAS 12/07 [facility] Outpatient Encounter [id number] 12/09 [facility] Outpatient Encounter [id number] 12/15 [facility] Encounter [id number] 12/15 [facility] OFFICE O/P EST MOD 30 MIN [id number] Diagnos is: ICD-10- CM E11.9 Type 2 diabete s mellitu s without complic ations LIZA ISSA HI 12/15 [facility] Outpatient Encounter [id number] 12/15 [facility] IMG RTA DETCJ/MNTR DS STAFF [id number] Diagnos is: ICD-10- CM Z13.5 Encount er for screeni ng for eye and ear disorde rs SIMIN LEE 12/15 [facility] IMG RTA DETC/MNTR DS PHY/QHP [id number] Diagnos is: ICD-10- CM Z13.5 Encount er for screeni ng for eye and ear disorde rs SIMIN LEE C 12/15 [facility] NQHP OL DIG ASSMT&MGMT 5-10 [id number] Diagnos is: ICD-10- CM Z51.81 Encount er for therape utic drug level monitor PAM iSn M 12/28 [facility] NQHP OL DIG ASSMT&MGMT 5-10 [id number] Diagnos is: ICD-10- CM I82.409 Acute embolis m and thombos unsp deep vn unsp lower extremi ty PAM LICONA 12/30 [facility] MTMS BY PHARM EST 15 MIN [id number] Diagnos is: ICD-10- CM Z51.81 Encount er for therape utic drug level monitor karen RETA DIANE 01/07 [facility] Social History Combined list of available smoking, tobacco, and other social history from [facility] and [facility] facilities. Social History Type Response Date Comment Source Tobacco smoking status MAIS VA-TOBACCO QUIT 15 YRS OR MORE 07/23/2024 [facility] History of tobacco use VA-TOBACCO FORMER USER 07/23/2024 [facility] History of tobacco use VA-TOBACCO FORMER USER 04/09/2023 [facility] History of tobacco use VA-TOBACCO NEVER USED 01/10/2022 [facility] History of tobacco use VA-TOBACCO FORMER USER 09/04/2021 [facility] History of tobacco use VA-TOBACCO FORMER USER 07/26/2020 [facility] History of tobacco use VA-TOBACCO QUIT 15 YRS OR MORE 04/25/2020 [facility] History of tobacco use VA-TOBACCO NEVER USED 04/08/2019 [facility] History of tobacco use QUIT TOBACCO >7 YEARS AGO 10/17/2016 [facility] History of tobacco use V7-NO TOBACCO USE > 7 YEARS 03/21/2016 38 YEARS [facility] History of tobacco use NON-TOBACCO USER 04/05/2015 [facility] History of tobacco use V7-NO TOBACCO USE > 7 YEARS 04/05/2015 [facility] [place] History of tobacco use V7-LIFETIME TOBACCO NON USER 07/19/2014 [facility] [place] History of tobacco use V7-LIFETIME TOBACCO NON USER 05/30/2013 [facility] [place] History of tobacco use V7-NO TOBACCO USE > 7 YEARS 06/03/2012 [facility] [place] History of tobacco use V7-LIFETIME TOBACCO NON USER 05/09/2011 [facility] [place] History of tobacco use V7-NO TOBACCO USE > 7 YEARS 06/03/2009 [facility] [place] History of tobacco use V7-TOBACCO QUIT DATE 03/09/2008 [facility] [place] History of tobacco use V7-HX TOBACCO USER >12 MONTHS <7 YEARS 03/09/2008 [facility] [place] History of tobacco use V7-LIFETIME TOBACCO NON USER 01/31/2007 [facility] [place] History of tobacco use V7-LIFETIME NON/TOBACCO USER 01/01/2006 [facility] [place] History of tobacco use LIFETIME NON-TOBACCO USER 12/10/2002 [facility] History of tobacco use CURRENT NON-TOBACCO USER-HX OF USE 11/13/2001 [facility] History of tobacco use TOBACCO USE 03/18/2001 stopped long ago [facility] History of tobacco use PREVIOUS SMOKER 12/03/2000 [facility] Advance Directives List of completed, amended, or rescinded Advance Directives on record at Department of [facility] Affairs facilities. An actual copy of the Directive is not included. Date Advance Directive Provider Source 06/02/1997 ADVANCE DIRECTIVE MARILYN BARRERA [facility]
--- OUTSIDE RECORDS SUMMARY | 2025-03-07 18:02 | XMS_ITS | Referral Summary ---
Author Organization [facility] er Address [address] [place] [address] Care Team Providers Care Radiophone Operator Name Role Phone No, Physician Unavailable Dear, Campbell Bullard DO Primary Care Provider + Encounters Date Type Department Care Team Description 03/03/2025 Telephone [facility] Cardiology [address] [place] [address] Delmer Prince MD from Last 3 Months Allergies Active Allergy Reactions Criticality Noted Date [...] 08/06/2022 Assessment & Plan (08/06/2022 12:13 PM RN SANE): Chronic, worsening - Refer to vascular surgery [...] 04/17/2022 Assessment & Plan (11/13/2022 2:04 PM RN SANE): Chronic, R anterior tibial (12/12); unprovoked per [...] surgery Assessment & Plan (08/06/2022 12:10 PM RN SANE): Chronic, R anterior tibial (12/12); unprovoked per [...] 04/17/2022 Assessment & Plan (08/06/2022 12:14 PM RN SANE): Chronic Complications: CAD, HTN, Neuropathy A1c: 8.0 [...] 04/17/2022 Assessment & Plan (08/06/2022 12:20 PM RN SANE): Chronic, controlled - lisinopril 2.5mg Assessment & [...] omeprazole 20mg Coronary artery disease invo lving chilkat coronary artery of chilkat heart without angina pectoris 04/17/2022 Assessment & [...] Comments Blood Pressure 137/63 11/20/2022 4:30 PM RN SANE Pulse 65 11/20/2022 4:55 PM RN SANE Temperature 36 C (96.8 F) 11/20/2022 10:41 AM RN SANE Respiratory Rate 18 11/20/2022 10:41 AM RN SANE Oxygen Saturation 100% 11/20/2022 4:55 PM RN SANE Inhaled Oxygen Concentration - - Weight 104.8 kg (231 lb) 11/20/2022 10:41 AM RN SANE Height 177.8 cm (5' 10) 11/13/2022 1:42 PM RN SANE Body Mass Index 33.15 11/13/2022 1:42 PM RN SANE Plan of Treatment Not on file Procedures Procedure Name Priority Date/Time Associated Diagnosis Comments EGFR STAT 11/20/2022 3:11 PM RN SANE HEMOGLOBIN A1C Routine 11/13/2022 2:20 PM RN SANE 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, without long-term current use of insulin (HCC) HEPATITIS C RNA, QUANTITATIVE, PCR Routine 05/08/2022 10:08 AM CDT Need for hepatitis C screening test LIPID PANEL Routine 04/17/2022 9:43 AM CDT Coronary artery disease involving chilkat coronary artery 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 73 m2 [facility] Comment: Interpretive Data Reference Interval [...] last reviewed 2021. Blood 11/20/2022 3:11 PM RN SANE 11/20/2022 3:16 PM RN SANE Abraham Coello MD LAB BLOOD ORDERABLES Fi nal Result Performing Organization Address [facility] Phone Number [facility] [address] [place] [address] * (ABNORMAL) Hemoglobin A1c (11/13/2022 2:20 PM RN SANE) Pathologist [facility] Hgb A1C 8.6(H) 4.0 - 5.6 % [facility] Estimated Average Glucose 200 mg/dL [facility] Comment: The ADA recommends reporting an estimated Average Glucose (eAG) with all Hemoglobin A1c results using the equation derived from a study of 507 normal and diabetic adults. Minority populations were underrepresented and children were not included. (Diabetes Care 31:2341-3205, 2008). The eAG is not equivalent to a fasting glucose. Blood 11/13/2022 2:20 PM RN SANE 11/13/2022 2:41 PM RN SANE Campbell uBllard Dear DO LAB BLOOD ORDERABLES Fin al Result Performing Organization Address [facility] Co de Phone Number [address] [address] * Hepatitis C (HCV) RNA PCR, quantitative (05/08/2022 10:08 AM CDT) [facility] HCV RNA IU/mL HCV Not Detected IU/mL [...] - 05/10/2022 8:17 AM CDT Performed at: [address] [id number] [facility]cd[facility] N Navigation Operator: Jamar Cooper MD, Phone: [phone] Capmbell Bullard Dear DO LAB MICROBIOLOGY - GENER AL ORDERABLES Edited Result - [facility] - * (ABNORMAL) Albumin Creatinine Ratio, Urine (04/17/2022 [...] 04/18/2022 10:10 AM CDT Performed at: [address] [id number] [facility]cd[facility] N Navigation Operator: Thad Peacock PhD, Phone: [phone] Campbell Bullard Dear DO LAB URINE ORDERABLES Fin al Result Performing Organization Address City/[facility]/ZIP Co de Phone Number [facility] - * Lipid panel (04/17/2022 9:43 AM CDT) [...] - 04/18/2022 7:10 AM CDT Performed at: 01 - [facility] [id number] [facility]cd[facility] N Navigation Operator: Thad Peacock PhD, Phone: [phone] us Campbell Oswald DO LAB BLOOD ORDERABLES Fin al Result Performing Organization Address [facility] Co de Phone Number [facility] - 01 * Occult blood, fecal non neoplasm screening (11/22/2017 11:15 AM RN SANE) Collection date , feces [id number] [facility] Collection time 1, feces 115 [facility] Occult blood, fecal Negative Negative [facility] Stool 11/22/2017 11:1 5 AM RN SANE 11/22/2017 1:19 PM RN SANE Narrative [facility] - 11/22/2017 2:38 PM RN SANE us Hakeem Muro DO LAB BODY FLUIDS AND STOOLS ORDERABLES Final Result Performing Organization Address [facility] Co de Phone Number [facility] [address] [facility] Department [place] [address] from Last 3 Months or Most Recently Relevant to Health Maintenance Insurance DUAL COMPLETE [id number] [employer] [facility] MEDICARE ADVANTAGE Care Teams Radiophone Operator Relationship Specialty Start Date End Date Dear, Campbell Bullard DO PCP - General Family Medicine 04/13/22 No, Physician 12/21/16
--- OUTSIDE RECORDS SUMMARY | 2025-03-07 18:02 | XMS_ITS | Encounter Summary ---
Author Organization [facility] Address 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
--- OUTSIDE RECORDS SUMMARY | 2025-03-07 18:02 | XMS_ITS | Clinical Summary ---
Author Organization [facility] Address [address] [place] [address] Care Team Providers Care Proposal Coordinator Name Role Phone Unknown, Provider Primary Care Provider Unavaila ble Source Comments [facility],non-owned Affiliates and Associated Physician Practices is amultiple site organization consisting of ambulatory clinics and hospital sitesin [place], [place], [place] and [place]. This disclosure is being madepursuant to the Care Everywhere program and may not contain all information available regarding this patient. 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 Gender Identity Not on file Sexual [...] this topic Medical Devices Explanted Type Area Leather Staker Device Identifier Shelf Expiration Date Model / Serial / Lot Stent Tria Sft [id number] Implanted:Qty: 1 on 03/13/2022 by Chace Dale MD at [facility] Explanted:Qty: 1 on 04/03/2022 by Chace Dale MD at [facility] Left: Ureter Wowcracy Scimed 12/06/2024 [id number] / / [id number] Insurance MANAGED MEDICARE [facility] [place]ICAID - [place] [facility] MANAGED MEDICARE ADV MEDICAID - [place] [facility] MANAGED MEDICARE ADV Member Subscriber Plan / Payer (Ef fective 2024-Present) Name:Mary Grace Lau Relation to Subscriber:Self Name:Yaya Mary Grace Payer ID:[id number] (NAIC) Type:Medicare-Managed Care Address: [place] [id number] [place]ID - [place] Member Subscriber Plan / Payer (Ef fective for All Dates) Name:Mary Grace Lau Member ID:Not on file Relation to Subscriber:Self Name:YayaMary Grace Payer ID:Not on file Group ID:Not on file Type:Medicaid [place] Address: [place] [id number] [facility] MANAGED MEDICARE ADV Member Subscriber Plan / Payer (Ef fective 2024-Present) Name:Mary Grace Lau Relation to Subscriber:Self Name:Mary Grace Lau Payer ID:[id number] ([facility]) Type:Medicare-Managed Care Address: [address] [place]ICAID - [place] [facility] MANAGED MEDICARE ADV Member Subscriber Plan / Payer (Ef fective 2024-Present) Name:Mary Grace Lau Relation to Subscriber:Self Name:Mary Grace Lau Payer ID:[id number] (NAIC) Type:Medicare-Managed Care Address: [address] * Guarantor: MARY GRACE LAU Account [...] Group ID:Not on file Type:Medicaid [place] Address: [address] MANAGED MEDICARE ADV Member Subscriber Plan / Payer (Ef fective 2024-) Name:Mary Grace Lau Relation to Subscriber:Self Name:Mary Grace Lau Payer ID:[id number] (NAIC) Type:Medicare-Managed Care Address: [place] [phone] * Guarantor: MARY GRACE LAU Account Type [...] Group ID:Not on file Type:Medicaid [place] Address: [address] MANAGED MEDICARE ADV * Guarantor: MARY GRACE LAU Account Type Relation to Patient Date of Phone Billing Address Personal/Family [address] [place] [address] MEDICAID - [place] [employer] MANAGED MEDICARE ADV [...] 7:21 PM 12/01/2019 1:11 AM Care Teams Proposal Coordinator Relationship Specialty Start Date End Date Unknown, Provider PCP - General 02/28/24
--- OUTSIDE RECORDS SUMMARY | 2025-03-07 18:02 | XMS_ITS | Encounter Summary ---
Author Organization [facility] Address 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
--- OUTSIDE RECORDS SUMMARY | 2025-03-07 18:02 | XMS_ITS | Patient Health Record ---
Author Organization [facility] Address [address] [facility] [facility] [address] [place] [address] Care Team Providers Care Guest Services Manager Name Role Phone Alana Avilaerjit Unavailable [phone] Reason For Referral No Information Problems Problem Type SNOMED Code ICD Code Onset Dates Problem Status W/U Status Risk Notes Problem Diabetic renal disease (191567472) Type 2 diabetes mellitus with diabetic chronic kidney disease (E11.22) Active confirmed Problem Hyperlipidemia (02883097) Hyperlipidemia, unspecified (E78.5) Active confirmed Problem Essential hypertension (18575100) Essential hypertension (I10) Active confirmed Problem Chronic kidney disease stage 3 (disorder) (538354039) Stage 3 chronic kidney disease (N18.30) Active confirmed Encounters Encounter Location Date Provider Diagnosis [place] [facility] [address] [facility] [address] [place] [address] 09/09/2024 Melvin Avila Stage 3 chronic kidn [...]
--- OUTSIDE RECORDS SUMMARY | 2025-03-07 18:02 | XMS_ITS | Continuity of Care Document ---
Author Organization [facility] Address [address] [place] [address] Insurance Providers Payer Plan Claims Address Claims Phone Policy Number Group Number Relation Employer Guarantor Name Guarantor Guarantor Address Guarantor Phone ANALIA Ha [employer] MED[employer] ARE ADVAN TAGE [address] [address], [place] [address] tel:[phone] Self Cosme Parsons 1945 [address] [place] [address] [employer] [place] tel:[phone] Self Cosme Parsons 1945 [address] [place] [address] [facility] MANAG ED MEDIC ARE ADV [address], [place] [address] tel:[phone] Self Cosme Parsons 1945 [address] [place] [address] Problems Unknown Problems Results No Results Allergies, adverse reactions, alerts No known allergies and adverse reactions Medications No administered medications reported Vital Signs Date Vital Result Comment 09/10/2024 Inhaled Oxygen Concentration (3150-0) 21. 0 % N Faces Pain Scale (53096-9) 0.0 N Temperature (8310-5) 98 [degF] N Oxygen Saturation (55756-6) 97 % N Respiratory Rate (9279-1) 16 /min N Heart Rate (8867-4) 64 /min N Blood Pressure Systolic (8480-6) 130 mm[Hg] N Blood Pressure Diastolic (8462-4) 60 mm[Hg] N Body Height (8302-2) 73 [in_i] N Body Weight (58933-7) 221 [lb_av] N Body Mass Index (75234-2) 29.2 kg/m2 N Social History No smoking Hx information available
--- OUTSIDE RECORDS SUMMARY | 2025-03-07 18:02 | XMS_ITS | Encounter Summary ---
Author Organization [facility] Address 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
--- OUTSIDE RECORDS SUMMARY | 2025-03-07 18:02 | XMS_ITS | Data Portability ---
Author Organization [facility] [employer], Main Office Address [address] [place] [address] Care Team Providers Care Customer Operations Specialist Name Role Phone SAHARA LEE Primary Care Provider SAHARA LEE Referring Provider BONNIE GUTIERRES Furniture Assembler And Installer ANA ROSA ESTRADA Neurosurgeon [phone] FIDENCIO JOSÉ Sponsorship Coordinator BETTE SOFIA Grease Maker GABI ROBBINS Urologist Assessment Encounter Date Assessment [...] Lab glycohemo globin, total, blood 2024 025 [facility], [address], [place], [address], 12/29/2024 17:56:33 microalbu min, urine 2024 025 [facility], [address], [place], [address], 12/29/2024 17:56:33 lipid panel, serum 2024 025 [facility], [address], [place], [address], 12/29/2024 17:56:31 CBC w/ auto diff 2024 025 [facility], [address], [place], [address], 12/29/2024 17:56:31 TSH, serum or plasma 2024 025 [facility], [address], [place], [address], 12/29/2024 17:56:34 CMP, serum or plasma 2024 025 [facility], [address], [place], [address], 12/29/2024 17:56:32 glycohemo globin, total, blood 2024 025 [facility], [address], [place], [address], 10/14/2024 15:03:11 microalbu min, urine 2024 025 [facility], [address], [place], [address], 01/02/2025 08:03:52 lipid panel, serum 2024 025 [facility], [address], [place], [address], 01/02/2025 08:03:50 CBC w/ auto diff 2024 025 [facility], [address], [place], [address], 01/02/2025 08:03:54 TSH, serum or plasma 2024 025 [facility], [address], [place], [address], 01/02/2025 08:03:55 CMP, serum or plasma 2024 025 [facility], [address], [place], [address], 01/02/2025 08:03:51 glycohemo globin, total, blood 2023 024 [facility], [address], [place], [address], 09/14/2024 09:45:27 microalbu min, urine 2023 024 [facility], [address], [place], [address], 09/14/2024 09:45:27 lipid panel, serum 2023 024 [facility], [address], [place], [address], 09/12/2024 07:48:24 CBC w/ auto diff 2023 024 [facility], [address], [place], [address], 09/12/2024 07:48:27 TSH, serum or plasma 2023 024 [facility], [address], [place], [address], 09/12/2024 07:48:29 CMP, serum or plasma 2023 024 [facility], [address], [place], [address], 09/12/2024 07:48:26 Referral rheumatol ogist referral - Please call patient to schedule an appointme nt. Thank you. 2024 025 ERYN [facility] (Rheumatology ), [address], [place], [address], 01/04/2025 11:05:20 urologist referral - Please call patient to schedule an appointme nt. Thank you. 2024 025 ERYN Freeman MD, [address], [place], [address], 01/04/2025 11:10:35 nephrolog ist referral - Please call patient to schedule an appointme nt. Thank you. 2024 025 ERYN Avila MD (Nephrology, [address], [address], [place], [address], 01/04/2025 11:10:35 podiatris t referral - Please call patient to schedule an appointme nt. Thank you. 2024 025 VIDHI José DPM, [address], [address], [place], [address], 12/30/2024 18:13:32 nephrolog ist referral - Please call patient to schedule. 2024 025 [email or web address] Melvin Avila MD (Nephrology, [address], [address], [place], [address], 10/15/2024 17:38:21 podiatris t referral 2024 025 [email or web address] Fidencio José DPM, [address], [address], [place], [address], 10/15/2024 17:38:12 nephrolog ist referral - Please call patient to schedule. 2023 024 emani Avila MD (Nephrology, [address], [address], [place], [address], 02/25/2025 15:00:58 podiatris t referral 2023 024 Fidencio José DPM, [address], [address], [place], [address], 08/13/2024 19:42:08 Procedures upper endoscopy procedure (EGD) (PROC) 2023 024 Bonnie Gutierres MD, [address], [address], [place], [address], 08/13/2024 19:41:28 Surgeries None recorded. Imaging US, liver - Please call patient to schedule. 2024 025 [email or web address] [facility], [address], [address], [place], [address], 10/14/2024 15:39:31 US, liver - Please call patient to schedule. 2023 024 [email or web address] [facility], [address], [address], [place], [address], 09/21/2024 13:32:50 Medication Orders None recorded. Patient TargetsNo targets recorded. Patient Instructions Encounter Date Encounter Id Patient Instructions Last Modified By Organization Details Last Modified Time 09/02/2024 [id number] 1. We changed hi s catheter today he will come back once a month for another catheter change Not available 09/02/2024 12:29:32 10/02/2024 [id number] continue with suprapubic tube change once a month Not available 10/02/2024 13:50:10 Reason for Referral Potato Chip Cooker Machine Referral for Pr oteinuria Please call patient to schedule. Referring Physician: Sahara Lee Internal Medicine, Encounter Date: 08/12/2024 Sponsorship Coordinator Referral for Type 2 diabetes mellitus without complication Referring Physician: Sahara Lee Internal Medicine, Encounter Date: 08/12/2024 Potato Chip Cooker Machine Referral for Pr oteinuria Please call patient to schedule. Referring Physician: Sara Mauricio Medicine, Encounter Date: 10/14/2024 Sponsorship Coordinator Referral for Type 2 diabetes mellitus without complication Referring Physician: Sahara Lee Internal Medicine, Encounter Date: 10/14/2024 Potato Chip Cooker Machine Referral for Pr oteinuria Please call patient to schedule an appointment. Thank you. Referring Physician: Sara Mauricio Medicine, Encounter Date: 12/29/2024 Sponsorship Coordinator Referral for Type 2 diabetes mellitus without complication Please call patient to schedule an appointment. Thank you. Referring Physician: Sahara Lee Internal Medicine, Encounter Date: 12/29/2024 Urologist Referral for Cysti tis Please call patient to schedule an appointment. Thank you. Referring Physician: Sara Mauricio Medicine, Encounter Date: 12/29/2024 Print Finishing Worker Referral for Paget's disease of pelvis Please call patient to schedule an appointment. Thank you. Referring Physician: Sara Mauricio, Encounter Date: 12/29/2024 Results Created Date Observation Date Name Description Value Unit Range Abnormal Flag Note LastModifiedBy Organization Detail LastModifiedTime 08/25/20 24 08/25/2024 imagi ng/di agnos tic resul t No observ ation record ed. [address], [place], [address], 08/25/2024 07:02:06 11/03/19 25 11/03/2024 imagi ng/di agnos tic resul t No observ ation record ed. [facility] [address], [place], [address], 11/03/2024 13:09:37 03/02/20 25 03/02/2025 imagi ng/di agnos tic resul t No observ ation record ed. [address], [place], [address], 03/02/2025 14:58:10 03/02/20 25 03/02/2025 imagi ng/di agnos tic resul t No observ ation record ed. [address], [place], [address], 03/02/2025 17:32:55 03/02/20 25 03/02/2025 imagi ng/di agnos tic resul t No observ ation record ed. [address], [place], [address], 03/02/2025 17:39:19 03/03/20 25 03/03/2025 imagi ng/di agnos tic resul t No observ ation record ed. [address], [place], [address], 03/03/2025 07:53:32 03/03/20 25 03/03/2025 imagi ng/di agnos tic resul t No observ ation record ed. [address], [place], [address], 03/03/2025 07:54:26 03/03/20 25 03/03/2025 imagi ng/di agnos tic resul t No observ ation record ed. [facility] [address], [place], [address], 03/03/2025 17:22:17 03/04/20 25 03/04/2025 imagi ng/di agnos tic resul t No observ ation record ed. [facility] [address], [place], [address], 03/04/2025 18:39:48 Result Notes None recorded. Problems Name Problem SNOMED Code Status Onset Date Resolution Date Notes Provider Name and Address Organization Details Recorded Time Diabetes mellitus 64964908 Active 2022 Not Available [facility] 4 05:59:13 Hyperlipid emia 65015094 Active 2022 Not Available [facility] 4 05:59:13 Essential hypertensi on 94060768 Active 2022 Not Available [facility] 4 05:59:13 Type 2 diabetes mellitus without complicati on 388578478 Active 2022 Not Available [facility] 4 05:59:13 Urinary incontinen ce 609325260 Active 2022 Not Available [facility] 4 05:59:13 Gastroesop hageal reflux disease without esophagiti s 257806103 Active 2022 Not Available [facility] 4 05:59:13 Moderate recurrent major depression 06819023 Active 2022 Not Available [facility] 4 05:59:13 Coronary arterioscl erosis 73402555 Active 2022 Not Available [facility] 4 05:59:13 Liver function tests outside reference range 381449670 Active 2022 Not Available [facility] 4 05:59:13 Microalbum inuria 938177290 Active 2022 Not Available [facility] 4 05:59:13 Osteoarthr itis of hip 440018746 Active 2023 Not Available [facility] 4 05:59:13 Pain of right hip joint 1570287619354 02 Active 2023 LiliaLUCI Freedman null, [place] [facility] 4 11:07:46 Low back pain 752442184 Active 2023 Not Available [facility] 4 05:59:13 Neuropathy 003845893 Active 2023 Indigo Sandoval MA null, [place] [facility] 4 10:11:21 Chronic low back pain 215675069 Active 2023 Indigo Sandoval MA null, [place] [facility] 4 11:34:38 Pain of left hip joint 6909109418391 00 Active 2023 SARAH Quezada null, [place] [facility] 4 10:20:52 Blood in urine 95878276 Active 2023 Indigo Sandoval MA null, [place] [facility] 4 12:47:55 Cystitis 56649913 Active 2023 Sahara guzman MD [address], [place], [address] , [facility] - [facility] 4 16:14:14 Steatotic liver disease 890456900 Active 2023 Sahara guzman MD [address], [place], [address] , [facility] - [facility] 4 09:40:39 Paget's disease-[facility] 210197164 Active 2023 Indigo Sandoval MA null, [place] [facility] 4 16:11:38 Syncope 353686590 Active 2023 Sahara guzman MD [address], [place], [address] , [facility] - [facility] 4 13:34:49 Anemia 140291178 Active 2023 Sahara guzman MD [address], [address], [address] , [facility] 4 10:06:31 Peripheral neuropathy due to type 2 diabetes mellitus 9794517064673 Active 2023 Myron Guido DPM [address] [facility], [address], [address] , [facility] 4 08:48:27 Onychomyco sis of toenails 373951258 Active 2023 Myron Guido DPM [address], [address], [address] , [facility] 4 08:48:34 Chronic retention of urine 273292120 Active 2023 Gabi Robbins MD [address], [address] [address], [place], [address] , [facility] 4 16:20:24 Proteinuri a 78940733 Active 2023 Sahara guzman MD [address], [address] [address], [place], [address] , [facility] 4 12:09:03 Paget's disease of pelvis 534033952 Active 2024 Sahara guzman MD [address], [address], [address] , [facility] 5 17:54:58 Osteitis deformans 7716112 Active 2024 SARAH Hadley, [facility] 5 14:34:56 Polyarthro katerin 08258043 Active 2024 SARAH Hadley, [facility] 14:37:47 Notes:Some problems listed i n Documents: #[id number], #[id number], #[id number] could not be added to this patient's chart. Please review these documents and add these problems to the patient's chart manually as needed. Problem Notes None recorded. Procedures Surgical History Date Name Laterality Status Provider Name and Address Organization Details Recorded Time 09/23/19 Pacemaker completed Yin Westfall SARAH [place] [facility] 10/14/2024 14:42:19 09/02/20 24 Cath Change completed Roseanne Cruz CMA [place] [facility] 09/02/2024 12:25:10 07/17/20 24 Nail Debridement completed Myron Guido DPM [address] [facility], [address], [place], [address], [facility] 07/20/2024 08:48:20 07/14/20 24 Transitional_Care_M anagement completed Sahara Lee MD [address] [facility], [place], [address], [facility] 07/14/2024 10:59:07 07/01/20 24 Colonoscopy [address] Yin Westfall [facility] 07/14/2024 09:56:57 12/26/19 24 Medicare Wellness CPT Code, subsequent completed Camryn Rowan [place] [facility] 12/24/2023 13:07:44 Tonsillectomy completed Yin Westfall [facility] [place] [facility] 08/27/2023 14:48:35 Cholecystectomy completed Yin Westfall [facility] 08/27/2023 14:48:41 total knee replacement completed Yin Westfall [facility] 08/27/2023 14:49:12 Orthopedic Surgery completed Yin Westfall [facility] [place] [facility] 08/27/2023 14:49:39 Bladder completed Yin Westfall [facility] 12/29/2024 17:22:13 Imaging Results None recorded. Procedure Notes None recorded. Medical Equipment None Reported. Allergies Allergen ID Allergen Name Allergen Category Reaction Reaction Severity Criticality Documentation Date Start Date Code Code System Note Provider Name and Address Organization Details Recorded Time 04250 morphine medicatio n Not available Not available Not available 06/04/2024 7052 RxNomanan ROGER Abdi, [facility] 4 09:55:19 94361 aspirin medicatio n Not available Not available Not available 06/04/2024 1191 RxROGER Jackson, [facility] 4 09:55:37 76326 amitripty line medicatio n Not available Not available Not available 06/04/2024 704 RxNomanan ROGER Abdi, [facility] 4 09:55:45 Medications Name Sig Start Date [...] TAKE 1 TABLET BY MOUTH TWICE DAILY 2024 active Not Available Not Available Not Avai lable lisinopril 2.5 mg tablet TAKE 1 TABLET [...] DateTime 10/02/2024 185.42 cm Roseanne Cruz CMA [place] [facility] [place] [facility] 10/02/2024 11:08:37 Date Recorded Body height Body mass index (BMI) Body weight Body temperature Heart rate Systolic blood pressure Diastolic blood pressure Provider Name and Address Organization Details Last Updated DateTime 185.42 cm 27.2 kg/m2 83063.0 3 g 97.9 [degF] 78 /min 120 mm[Hg] 60 mm[Hg] SAARH Hadley [place] [employer] [facility] [employer] [facility] 5 14:48:27 Date Recorded Body height Body mass index (BMI) Body weight Body temperature Heart rate Systolic blood pressure Diastolic blood pressure Provider Name and Address Organization Details Last Updated DateTime 5 185.42 cm 29 kg/m2 62597.3 2 g 97.2 [degF] 78 /min 136 mm[Hg] 62 mm[Hg] SARAH Hadley [facility] [employer] 5 17:24:18 Date Recorded Body height Body mass index (BMI) Body weight Body temperature Heart rate Systolic blood pressure Diastolic blood pressure Provider Name and Address Organization Details Last Updated DateTime 4 185.42 cm 26.7 kg/m2 42508.6 6 g 97.7 [degF] 78 /min 100 mm[Hg] 54 mm[Hg] SARAH Hadley [facility] [employer] [facility] 4 11:46:27 Date Recorded Body height Heart rate Body temperature Body mass index (BMI) Body weight Oxygen saturation Oxygen saturation in Arterial blood by Pulse oximetry Systolic blood pressure Diastolic blood pressure Provider Name and Address Organization Details Last Updated DateTime 4 185.42 cm 80 /min 97 [degF] 27.7 kg/m2 89609.4 g 94 % 94 % 147 mm[Hg] 65 mm[Hg] Roseanne Cruz CMA [facility] [employer] [facility] 4 10:39:12 Social History Question Answer Notes LastModified by Organization Details LastModified Time Tobacco Smoking Status Former Smoker quit age 41 SARAH Hadley [facility] [employer] 10/14/2024 14:44:47 Do You Have An Advance [...] Or The Highest Degree You Have Received? [id number] Information not available 08/27/2023 What Is The [...] You Able To Care For Yourself? Yes [email or web address] Information not available 12/26/2023 Are You Blind Or Do Yo Have Difficulty Seeing? No [email or web address] Information not available 12/26/2023 Are You Deaf Or Do You Have Serious Difficulty Hearing? Yes [email or web address] Information not available 12/26/2023 Live Alone Of With Others? With Others [email or web address] Information not available 12/26/2023 Do You Have A Medical Power Of Pipe Puller? Yes Information not available 08/27/2023 What Was [...] anxious, or unable to sleep at night)? [id number] Information not available 08/27/2023 Do you have difficulty concentrating, remembering or making decisions? Yes Information no t available 08/27/2023 Family History Relationship Description Onset Age of this Age Resolved Age Notes LastModified by Organization Details LastModified Time Son Aortic valve stenosis 10 [email or web address] Not available 09/02 10:03:12 Sister Diabetes mellitus Not available 2022 14:42:08 Mother Myocardial infarction Not available 08/27 14:42:20 Mother Heart disease [email or web address] Not available 02/2024 11:06:02 Father Leukemia [email or web address] Not availab le 09/02/2024 10:03:12 Brother Diabetes [...] HEARING PROBLEMS Y MUMPS N SHINGLES N DEPRESSION (INCLUDING POST ) N BOWEL PROBLEMS N FAILED BACK SYNDROME N STROKE/TIA Y [...] DIVERTICULITIS N SLEEP APNEA N CHICKENPOX N BACK INJECTIONS N ALLERGIES/HAYFEVER N INFECTIOUS DISEASE N PROSTATE N HEART ARRHYTHMIA N INSOMNIA N ESRD N HIGH CHOLESTEROL / HYPERLIPIDEMIA Y HYPERTHYROIDISM [...] Brain Problems N HERPES N DEMENTIA N SEIZURES/EPILEPSY N HEADACHES/MIGRAINES N VASCULAR DISEASE N PACEMAKER N DIZZINESS N KIDNEY DISEASE N HEART DISEASE/HEART PROBLEMS N MULTIPLE SCLEROSIS N NEUROPSYCHOLOGICAL N CARDIAC ARRHYTHMIA N CANCER: SPECIFY N Gall Stones N ATRIAL FIBRILLATION N PULMONARY EMBOLISM N AUTOIMMUNE DISEASE N Past Encounters Encounter ID Performer Location Encounter Start Date Encounter Closed Date Diagnosis/Indication Diagnosis SNOMED-CT Code Diagnosis ICD10 Code Diagnosis Note [id number] Sahara guzman MD [facility] [address] [place] [address] 08/27/2023 14:08:20 08/27/2023 15:23:27 Screening - NAD 156624738 Z13.9 C-scope: Get this done Get yearly flu shotGet tdap if not doneGet COVID 19 vaccineGet PCV #20Get Shingrix and RSV vaccinesHe has declined all his vaccines 08/27/2023 RTC in 4 months, do labs, ER if worse, he and his son verbalized his understand ing of the above Essential hypertension 31023108 I10 On lisinopril 2.5mg dailyGet labsGet a referral to cardiology Hyperlipidemia 03190354 E78.5 On ASAOn atorvastat in 80mg 1/2 tab dailyGet labs 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 844219353 E11.9 On synjardy XR 5-500mg bidOn trulicity 1.5mg weeklyGet labs Urinary incontinence 165 641002 R32 On flomaxOn myrbetriq Screening for malignant neoplasm of colon 566311917 Z12.11 Screening for malignant neoplasm of prostate 589321449 Z12.5 Ex-cigarette smoker 2810 46400 Z87.891 Get US AAA Gastroesop hageal reflux disease without esophagitis 101886145 K21.9 On omeprazole 20mg daily, take PRN, get EGD Moderate r ecurrent major depression 60030913 F33.1 States that he did use to have PTSD[facility] used to be on medication s, but has not taken these, used to see psychiatry in the past, declines any meds or referrals, states that he is doing very well, not suicidal or homicidal Coronary arteriosclerosis 29260542 I25.10 On eliquisSho mayitod NOT be on coumadinNe eds to see cardiology [id number] Mode Jerez MD [facility] [place] [address] [place] [address] 10/29/2023 10:34:14 10/29/2023 11:28:20 Pain of right hip joint 4472710724 16060 M25.551 Low back pain 316091566 M54.50 [id number] Mode Jerez MD [facility] [place] [address] [place] [address] 11/26/2023 10:10:38 11/26/2023 11:16:18 Pain of left hip joint 4116325620 89848 M25.552 Low back pain 412483565 M54.50 [id number] Sahara guzman MD [facility] Internal Med [address] [facility] [place] [address] 12/26/2023 17:21:50 12/26/2023 18:05:09 Screening - NAD 472767920 Z13.9 C-scope: Get this done Get yearly flu shotGet tdap if not doneGet COVID 19 vaccineGet PCV #20Get Shingrix and RSV vaccinesHe has declined all his vaccines 08/27/2023 RTC in 4 months, do labs, ER if worse, he verbalized his understand ing of the above Essential hypertension 84473469 I10 On lisinopril 2.5mg dailyGet labsGet a referral to cardiology Hyperlipidemia 40311696 E78.5 On ASAOn atorvastat in 80mg 1/2 tab dailyGet labs 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 704173274 E11.9 On metformin ER 500mg bidOn synjardy XR 5-500mg bid, d/c this as he is already on metforminO n trulicity 1.5mg weeklyGet labs Urinary incontinence 165 795402 R32 On flomaxOn myrbetriq Screening for malignant neoplasm of colon 191686684 Z12.11 Ex-cigarette smoker 2810 97260 Z87.891 [place] AAA: 10/14/2023 : Neg Gastroesop hageal reflux disease without esophagitis 221240473 K21.9 On omeprazole 20mg daily, take PRN, get EGD Moderate r ecurrent major depression 48863229 F33.1 States that he did [facility] to have [facility] used to be on medication s, but has not taken these, used to see psychiatry in the past, declines any meds or referrals, states that he is doing very well, not suicidal or homicidal Coronary arteriosclerosis 78285346 I25.10 On eliquisSho uld NOT be on coumadinNe eds to see cardiology Cystitis 42617897 N30.90 S/p ER 12/05/2023 , s/p CT A/P 12/05/2023 Referred to urology Pain of le ft hip joint [id number] 77475 M25.552 [facility] 11/26/2023 Dr Jerez/Magy 11/26/2023 , treated with PT Low back pain 548098509 M54.50 Addnedum 11/26/2023 See case on 11/14/2023 , tramadol sent On methocarbo mol, see [facility] note, should stop thisAlso stop any NSAIDs Referred to Dr Payne ortho spine surgeonAls o to see Dr Jerez on 01/01/2024 Adult heal th examination 403298768 Z00.00 Screening for disorder 390774864 Z13.9 [id number] Sahara guzman MD [facility] Internal Med [facility] [address] [facility] [place] [address] 06/04/2024 09:47:52 06/04/2024 10:38:05 Screening - NAD 678724753 Z13.9 C-scope: Get this done Get yearly flu shotGet tdap if not doneGet COVID 19 vaccineGet PCV #20Get Shingrix and RSV vaccinesHe has declined all his vaccines 08/27/2023 RTC in 4 months, do labs, ER if worse, he verbalized his understand ing of the above Essential hypertension 97149621 I10 On lisinopril 2.5mg dailyGet labsGet a referral to cardiology Hyperlipidemia 24593786 E78.5 On ASAOn atorvastat in 80mg 1/2 tab dailyGet labs 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 770191819 E11.9 On metformin ER 500mg bidOn synjardy XR 5-500mg bid, d/c this as he is already on metforminO n trulicity 1.5mg weeklyGet labs Urinary incontinence 165 360148 R32 On flomaxOn myrbetriq 12/05/2023 : [facility] ER s/p fall hematuria, CT A/P CT A/P 01/29/2024 d/t hematuria from recent cystoscopy [facility] 03/29/2024 :CT A/P: 03/29/2024 : L hydronephr osis Bladder Bx: 04/10/2024 : Dr Freeman Screening for malignant neoplasm of colon 243871454 Z12.11 Ex-cigarette smoker 2810 55028 Z87.891 AAA: 10/14/2023 : Neg Gastroesop hageal reflux disease without esophagitis 213984235 K21.9 On omeprazole 20mg daily, take PRN, get EGD Moderate r ecurrent major depression 19326099 F33.1 States that he did use to have PTSD, [facility], used to be on medication s, but has not taken these, used to see psychiatry in the past, declines any meds or referrals, states that he is doing very well, not suicidal or homicidal Coronary arteriosclerosis 84031346 I25.10 On eliquisSho uld NOT be on coumadinNe eds to see cardiology Cystitis 39802789 N30.90 S/p ER 12/05/2023 , s/p CT A/P 12/05/[address] A/P 01/29/2024 d/t hematuria from recent cystoscopy [facility] 03/29/2024 :CT A/P: 03/29/2024 : L hydronephr osis Bladder Bx: 04/10/2024 : Dr Freeman Pain of le ft hip joint [id number] 48830 M25.552 [facility] 11/26/2023 Dr Jerez/Magy 11/26/2023 , treated with PT Low back pain 614451760 M54.50 Addnedum 11/26/2023 See case on 11/14/2023 , tramadol sent On methocarbo mol, see [facility] note, should stop thisAlso stop any NSAIDs Referred to Dr Payne ortho spine surgeonAls o to see Dr Jerez on 01/01/2024 MRI T/C spine 05/01/2024 Steatotic liver disease 083943537 K76.0 12/05/2023 : CT A/PUS liver 10/14/2023 Get labs Screening for malignant neoplasm of prostate 614831779 Z12.5 [id number] Sahara guzman MD S_G Internal Med [facility] [address] [facility], [facility] [address] [place] [address] 07/14/2024 09:47:47 07/14/2024 10:40:52 Screening - NAD 146202311 Z13.9 C-scope: Get this done Get yearly flu shot, declined 07/14/2024 Get tdap if not doneGet COVID 19 vaccineGet PCV #20Get Shingrix and RSV vaccinesHe has declined all his vaccines 08/27/2023 , 07/14/2024 RTC in 4 months, do labs, ER if worse, he and his son did verbalize his understand ing of the above Essential hypertension 18120766 I10 On lisinopril 2.5mg daily, do not take till seen by cardiology d/t recent hospitaliz ation for syncope, d/c 07/08/2024 Get labsGet a referral to cardiology Hyperlipidemia 69875059 E78.5 On ASAOn atorvastat in 80mg 1/2 tab dailyGet labs 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 418639489 E11.9 On metformin ER 500mg bidOn synjardy XR 5-500mg bid, d/c this as he is already on metforminO n trulicity 1.5mg weeklyGet labs Urinary incontinence 165 804018 R32 On flomaxOn myrbetriq 12/05/2023 : [facility] ER s/p fall hematuria, CT A/P CT A/P 01/29/2024 d/t hematuria from recent cystoscopy [facility] 03/29/2024 :CT A/P: 03/29/2024 : L hydronephr osis Bladder Bx: 04/10/2024 : Dr Freeman Screening for malignant neoplasm of colon 440059535 Z12.11 Ex-cigarette smoker 3660 71927 Z87.891 [place] AAA: 10/14/2023 : Neg Gastroesop hageal reflux disease without esophagitis 782128393 K21.9 On omeprazole 20mg daily, take PRN, get EGD Moderate r ecurrent major depression 87358774 F33.1 States that he did use to have PTSD, [facility], used to be on medication s, but has not taken these, used to see psychiatry in the past, declines any meds or referrals, states that he is doing very well, not suicidal or homicidal Coronary arteriosclerosis 93760354 I25.10 On eliquis, restarted on at D/c from [facility] on 07/08/2024 Should NOT be on coumadinNe eds to see cardiology Cystitis 88768269 N30.90 S/p ER 12/05/2023 , s/p CT A/P 12/05/[address] A/P 01/29/2024 d/t hematuria from recent cystoscopy [facility] 03/29/2024 :CT A/P: 03/29/2024 : L hydronephr osis Bladder Bx: 04/10/2024 : Dr Freeman Seen in the ER and admitted to [facility] and D/c 07/08/2024 : Noted to have hematuria, has to see Dr Cantrell on flomax 0.4mg daily Pain of le ft hip joint [id number] 02954 M25.552 [facility] 11/26/2023 Dr Jerez/Magy 11/26/2023 , treated with PT Low back pain 495291593 M54.50 Addnedum 11/26/2023 See case on 11/14/2023 , tramadol sent On methocarbo mol, see [facility] note, should stop thisAlso stop any NSAIDs Referred to Dr Payne ortho spine surgeonAls o to see Dr Jerez on 01/01/2024 MRI T/C spine 05/01/2024 On gabapentin 300mg tid Steatotic liver disease 184897220 K76.0 12/05/2023 : CT A/PUS liver 10/14/2023 Syncope 808439498 R55 [facility] 07/04/2024 XR Chest 07/04/2024 ECHO 07/04/2024 : 55-60%MRI brain 07/07/2024 : [facility] eds to see Dr Freeman Transition of care 25382 00263 105 Z75.8 Anemia 169999281 D64.9 On iron 325mg daily, get labs Neuropathy 992669034 G62 [address] Mills anS/p EMG [id number] Myron Guido DPM S[facility] Podiatry [facility] [address] [facility], [facility] [address] [place] [address] 07/17/2024 09:50:02 07/21/2024 09:34:00 Peripheral neuropathy due to type 2 diabetes mellitus 4146313260 107 E11.42 Onychomyco sis of toenails 308198077 B35.1 [id number] Gabi Robbins MD S_[facility] ENT [place] [address] [facility] [address] [place] [address] 08/07/2024 15:13:33 08/07/2024 16:26:29 Chronic retention of urine 523107264 R33.8 [id number] Sahara guzman MD [facility] Primary Care [address] [place] [address] 08/12/2024 11:22:19 08/12/2024 12:43:30 Screening - NAD 348828430 Z13.9 C-scope: Get this done Get yearly [...] apt with urology and cardiology Essential hypertension 71001472 I10 On lisinopril 2.5mg daily, do not take till seen by cardiology d/t recent hospitaliz ation for syncope, d/c 07/08/2024 Get labsGet a referral to cardiology Hyperlipidemia 02694861 E78.5 On ASAOn atorvastat in 80mg 1/2 tab dailyGet labs 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 451759408 E11.9 On metformin ER 500mg bidOn synjardy XR 5-500mg bid, d/c this as he is already on metforminO n trulicity 1.5mg weeklyGet labs Urinary incontinence 165 348757 R32 On flomaxOn myrbetriq 12/05/2023 : [facility] ER s/p fall hematuria, CT A/P CT A/P 01/29/2024 d/t hematuria from recent cystoscopy [facility] 03/29/2024 :CT A/P: 03/29/2024 : L hydronephr osis Bladder Bx: 04/10/2024 : Dr Freeman Ex-cigarette smoker 2810 58467 Z87.891 [place] AAA: 10/14/2023 : Neg Coronary arteriosclerosis 86813077 I25.10 On eliquis, restarted on at D/c from [facility] on 07/08/2024 Should NOT be on coumadin Dr Sofia [facility] 08/06/2024 : On eliquis, and has to see Dr Gee Gastrojanuaryop hageal reflux disease without esophagitis 386816899 K21.9 On omeprazole 20mg daily, take PRN, get EGD Moderate r ecurrent major depression 12292751 F33.1 States that he did use to have [facility], [facility], used to be on medication s, but has not taken these, used to see psychiatry in the past, declines any meds or referrals, states that he is doing very well, not suicidal or homicidal Cystitis 85472433 N30.90 On flomaxOn Myrbetriq 50mg daily S/p ER 12/05/2023 , s/p CT A/P 12/05/2023 Referred to urologyCT A/P 01/29/2024 d/t hematuria from recent cystoscopy [facility] 03/29/2024 :CT A/P: 03/29/2024 : L hydronephr osisBladde r Bx: 04/10/2024 : Dr Edward in the ER and admitted to [place] and D/c 07/08/2024 : Noted to have hematuria, has to see Dr Pete Robbins 08/07/2204 : to get monthly Omer Cath done Pain of le ft hip joint 5495881956 33637 M25.552 [facility] 11/26/2023 Dr Jerez/Magy 11/26/2023 , treated with PT Low back pain 433895109 M54.50 Addnedum 11/26/2023 See case on 11/14/2023 , tramadol sent On methocarbo mol, see [facility] note, should stop thisAlso stop any NSAIDs Referred to Dr Payne ortho spine surgeonAls o to see Dr Jerez on 01/01/2024 MRI T/C spine 05/01/2024 On gabapentin 300mg tid Steatotic liver disease 997513008 K76.0 12/05/2023 : CT A/PUS liver 10/14/2023 Hep panel/GGT: Neg 06/04/2024 Repeat US liver, ordered 08/12/2024 Syncope 305474669 R55 [facility] 07/04/2024 XR Chest 07/04/2024 ECHO 07/04/2024 : 55-60%MRI brain 07/07/2024 : [facility] OV 08/12/2024 : Does well now Anemia 351537060 D64.9 On iron 325mg daily, get labs Neuropathy 141698864 G62 .[address] Mills anS/p EMG Proteinuria 44041711 R80 .9 Refer to nephrology [id number] Gabi Robbins MD [facility] [address] [place] [address] 09/02/2024 09:59:47 09/02/2024 10:35:07 Chronic retention of urine 675496238 R33.8 [id number] Gabi Robbins MD [facility] [address] [facility] [address] [place] [address] 10/02/2024 10:44:50 10/02/2024 11:27:52 Chronic retention of urine 993800857 R33.8 [id number] Sahara guzman MD S_[facility]G Primary Care [facility] [address] [facility] [address] [place] [address] 10/14/2024 14:34:18 10/14/2024 15:06:28 Screening - NAD 718163352 Z13.9 C-scope: Get this done Get yearly [...] apt with urology and cardiology Essential hypertension 70410159 I10 Not on lisinopril 2.5mg daily, do not take till seen by cardiology d/t recent hospitaliz ation for syncope, d/c 07/08/2024 Get labs Hyperlipidemia 30066051 E78.5 On ASAOn atorvastat in 80mg 1/2 tab dailyGet labs 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 631189878 E11.9 On metformin ER 500mg bidOn synjardy XR 5-500mg bid, d/c this as he is already on metforminO n trulicity 1.5mg weeklyGet labs Urinary incontinence 165 888919 R32 On flomaxOn myrbetriq 12/05/2023 : [facility] ER s/p fall hematuria, CT A/P CT A/P 01/29/2024 d/t hematuria from recent cystoscopy [facility] 03/29/2024 :CT A/P: 03/29/2024 : L hydronephr osis Bladder Bx: 04/10/2024 : Dr Freeman Ex-cigarette smoker 2810 51996 Z87.891 [place] AAA: 10/14/2023 : Neg Coronary arteriosclerosis 67375412 I25.10 On eliquis, restarted on at D/c from [facility] on 07/08/2024 Should NOT be on coumadin OV 10/14/2024 :Dr Sofia [facility] 08/06/2024 : On eliquis, and has to see Dr Gee and is s/p PCM insertion Gastroesop hageal reflux disease without esophagitis 949669892 K21.9 On omeprazole 20mg daily, take PRN,Get EGD report Moderate r ecurrent major depression 51093497 F33.1 States that he did use to have PTSD, [facility], used to be on medication s, but has not taken these, used to see psychiatry in the past, declines any meds or referrals, states that he is doing very well, not suicidal or homicidal Cystitis 85803768 N30.90 On flomaxOn Myrbetriq 50mg daily S/p ER 12/05/2023 , s/p CT A/P 12/05/2023 Referred to urologyCT A/P 01/29/2024 d/t hematuria from recent cystoscopy [facility] 03/29/2024 :CT A/P: 03/29/2024 : L hydronephr osisBladde r Bx: 04/10/2024 : Dr Edward in the ER and admitted to [place] and D/c 07/08/2024 : Noted to have hematuria, has to see Dr Pete Robbins 08/07/2204 : to get monthly Omer Cath done Pain of le ft hip joint 0884324273 00365 M25.552 [place] [facility] 11/26/2023 Dr Jerez/Magy 11/26/2023 , treated with PT Low back pain 472962258 M54.50 Addnedum 11/26/2023 See case on 11/14/2023 , tramadol sent On methocarbo mol, see [facility] note, should stop thisAlso stop any NSAIDs Referred to Dr Payne ortho spine surgeonAls o to see Dr Jerez on 01/01/2024 MRI T/C spine 05/01/2024 On gabapentin 300mg tid Steatotic liver disease 567518438 K76.0 12/05/2023 : CT A/PUS liver 10/14/2023 Hep panel/GGT: Neg 06/04/2024 Repeat US liver, ordered 08/12/2024 Syncope 924461801 R55 S[facility]p D[facility] 07/04/2024 XR Chest 07/04/2024 ECHO 07/04/2024 : 55-60%MRI brain 07/07/2024 : [facility] OV 08/12/2024 : Does well now Anemia 512368710 D64.9 On iron 325mg daily, get labs Neuropathy 170201964 G62 .[address] Mills anS/p EMG Proteinuria 73492096 R80 .9 Refer to nephrology Screening for malignant neoplasm of colon 575102137 Z12.11 Get C-scope report [id number] Sahara guzman MD [facility] Internal Med [facility] [address] [facility] [place] [address] 12/29/2024 16:37:02 12/29/2024 18:14:17 Screening - NAD 526404791 Z13.9 C-scope/EG : Dr Aguilar Get yearly flu shot, declined 07/14/2024 Get tdap if not doneGet COVID 19 vaccineGet PCV #20Get Shingrix and RSV vaccinesHe has declined all his vaccines 08/27/2023 , 07/14/2024 RTC in 2 months, do labs, ER if worse, he and his son did verbalize his understand ing of the above Essential hypertension 13726944 I10 Not on lisinopril 2.5mg dailyGet labs Hyperlipidemia 75753473 E78.5 On ASAOn atorvastat in 80mg 1/2 tab dailyGet labs 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 620053520 E11.9 On metformin ER 500mg bidNot on synjardy XR 5-500mg bid, d/c this as he is already on metforminO n trulicity 1.5mg weeklyGet labs Urinary incontinence 165 661067 R32 On flomaxOn myrbetriq 12/05/2023 : [facility] ER s/p fall hematuria, CT A/P CT A/P 01/29/2024 d/t hematuria from recent cystoscopy [facility] 03/29/2024 :CT A/P: 03/29/2024 : L hydronephr osis Bladder Bx: 04/10/2024 : Dr Freeman Ex-cigarette smoker 7987 05750 Z87.891 US AAA: 10/14/2023 : Neg Coronary arteriosclerosis 99187406 I25.10 On eliquis, restarted on at D/c from [facility] on 07/08/2024 Should NOT be on coumadin OV 10/14/2024 :Dr Sofia [facility] 08/06/2024 : On eliquis, and has to see Dr Gee and is s/p PCM insertion OV 12/29/2024 : Keep apt with cardiology Gastroesop hageal reflux disease without esophagitis 449417434 K21.9 On omeprazole 20mg daily, take PRN,Get EGD report Moderate r ecurrent major depression 53329176 F33.1 States that he did use to have PTSD, [facility], used to be on medication s, but has not taken these, used to see psychiatry in the past, declines any meds or referrals, states that he is doing very well, not suicidal or homicidal Cystitis 46795962 N30.90 On flomaxOn Myrbetriq 50mg daily S/p ER 12/05/2023 , s/p CT A/P 12/05/2023 Referred to urologyCT A/P 01/29/2024 d/t hematuria from recent cystoscopy [facility] 03/29/2024 :CT A/P: 03/29/2024 : L hydronephr osisBladde r Bx: 04/10/2024 : Dr Edward in the ER and admitted to [place] and D/c 07/08/2024 : Noted to have hematuria, has to see Dr Pete Robbins 08/07/2204 : to get monthly Omer Cath done OV 12/29/2024 : Now should see urology, referred Pain of le ft hip joint 5827925862 05652 M25.552 [place] 11/26/2023 Dr Jerez/Magy 11/26/2023 , treated with PT Low back pain 415132867 M54.50 Addnedum 11/26/2023 See case on 11/14/2023 , tramadol sent On methocarbo mol, see [facility] note, should stop thisAlso stop any NSAIDs Referred to Dr Payne ortho spine surgeonAls o to see Dr Jerez on 01/01/2024 MRI T/C spine 05/01/2024 On gabapentin 300mg tid Steatotic liver disease 086796581 K76.0 12/05/2023 : CT A/PUS liver 10/14/2023 Hep panel/GGT: Neg 06/04/2024 US liver 11/03/2024 : Neg Syncope 965718876 R55 [facility] 07/04/2024 XR Chest 07/04/2024 ECHO 07/04/2024 : 55-60%MRI brain 07/07/2024 : [facility] OV 08/12/2024 : Does well now Anemia 220430204 D64.9 On iron 325mg daily, get labs Neuropathy 358669351 G62 .[address] Mills anS/p EMG Proteinuria 69444172 R80 .9 Refer to nephrology Paget's di sease of pelvis 828739003 M88.88 S/p CT A/P 11/03/2024 Refer to rheumatolo gy Health Concerns Section Related Observation LastModified by Organization Detai ls LastModified Time None Recorded Concern Status LastModified by Organization Details LastModified Time None Recorded Advance Directives Directive Y: Payers Insurance Date Sequence Insurance Name Policy Number Policy Robles Covered Member ID Robles Member ID Guarantor Name 12/25/2024 2 [place] [employer] [place] [employer] Cosme Javier [id number] Cosme Javier 09/01/2024 1 [facility] (MEDICARE REPLACEMENT/A DVANTAGE - PPO) Cosme Javier [id number] Cosme Javier 12/26/2024 2 [place] WHEN MEDICARE OR MEDICARE REPLACEMENT PRIMARY) Cosme Javier [id number] Cosme Javier 09/01/2024 1 [facility] (MEDICARE REPLACEMENT/A DVANTAGE - HMO) Cosme Javier [id number] Cosme Javier 01/10/2025 1 [facility] (MEDICARE REPLACEMENT/A DVANTAGE - PPO) [id number] Cosme Javier [id number] Cosme Javier Notes Date Note Type Note [...] hosp f/u apt, he was d/c from [facility] 07/08/2024 for an episode of syncope, was found to have gross hematuria and anemia, now is feeling much better, he is here with his son Abraham, he is now on the iron tablets, denies any hematuria now OV 08/12/2024: Here for his f/u apt, he is doing well today Sahara Lee MD [address], [place], [address], [employer] 08/12/2024 19:20:05 09/02/2024 text/html this patient is here for a catheter change. He wants to continue with catheter changes he does not want a suprapubic tube he is doing well Gabi Robbins MD [address], [place], [address], [employer] 09/02/2024 12:31:40 10/02/2024 text/html this patient is coming in to get a suprapubic tube changed Gabi Robbins MD [address], [place], [address], [employer] 10/02/2024 13:50:45 10/14/2024 text/html OV 08/27/2023:He re [...] hosp f/u apt, he was d/c from [facility] 07/08/2024 for an episode of [...] now s/p PCM insertion with Dr Gee [facility] Sahara Lee MD [address], [place], [address], [facility] [employer] [facility] 10/14/2024 15:04:31 12/29/2024 text/html OV 08/27/2023:He re [...] hosp f/u apt, he was d/c from [facility] 07/08/2024 for an episode of [...] now s/p PCM insertion with Dr Gee [facility] OV 12/29/2024: Here for his f/u apt, he is doing well today Sahara Lee MD [address], [place], [address], [facility] [employer] [facility] [employer] [facility] 12/29/2024 18:25:24
--- OUTSIDE RECORDS SUMMARY | 2025-03-07 18:03 | XMS_ITS | Encounter Summary ---
Author Organization [facility] Address [address] [place] [address] Care Team Providers Care Network Firewall Engineer Name Role Phone Unknown, Provider Primary Care Provider Unavaila ble Reason for Visit * Reason Onset Date Comments Med Question 06/18/2024 Encounter Details Date Type Department Care Team (Late st Contact Info) Description 06/18/2024 Telephone [facility] - Centralized Scheduling [address] [place] [address] Thao Neri MD [address] [address] Med Question Social History Tobacco Use Types Packs/Day Years Used Date Smoking Tobacco: Former Smokeless Tobacco: Never Alcohol Use Standard Drinks/Week Comments No 0 (1 standard drink = 0.6 oz pur e alcohol) Sex and Gender Information Value Date Recorded Sex Assigned at Not on file 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
--- OUTSIDE RECORDS SUMMARY | 2025-03-07 18:03 | XMS_ITS | Encounter Summary ---
Author Organization [facility] Address 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
--- OUTSIDE RECORDS SUMMARY | 2025-03-07 18:03 | XMS_ITS | Encounter Summary ---
Author Organization [facility] Address 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
--- OUTSIDE RECORDS SUMMARY | 2025-03-07 18:03 | XMS_ITS | Encounter Summary ---
Author Organization [facility] Address 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
--- OUTSIDE RECORDS SUMMARY | 2025-03-07 18:03 | XMS_ITS | Encounter Summary ---
Author Organization [facility] Address 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
--- OUTSIDE RECORDS SUMMARY | 2025-03-07 18:03 | XMS_ITS | Encounter Summary ---
Author Organization [facility] Address [address] [place] [address] Care Team Providers Care Automatic Spooler Operator Name Role Phone Abraham Cohn DO Primary Care Provider + Unknown, Provider Primary Care Provider Unavaila ble Encounter Details Date Type Department Care Team (Late st Contact Info) Description 01/05/2021 [facility] Outpatient Visit [facility] Orthopedics - Radiology [address] [place] [address] [place] [address] Document, Scanned Social History Tobacco Use Types Packs/Day Years Used Date Smoking Tobacco: Former Smokeless Tobacco: Never Alcohol Use Standard Drinks/Week Comments No 0 (1 standard drink = 0.6 oz pur e alcohol) Sex and Gender Information Value Date Recorded Sex Assigned at Not on file 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
--- OUTSIDE RECORDS SUMMARY | 2025-03-07 18:03 | XMS_ITS | Encounter Summary ---
Author Organization [facility] Address 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
--- OUTSIDE RECORDS SUMMARY | 2025-03-07 18:03 | XMS_ITS | Encounter Summary ---
Author Organization [facility] Address 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
--- OUTSIDE RECORDS SUMMARY | 2025-03-07 18:03 | XMS_ITS | Clinical Summary ---
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 Gender Identity Not on file Sexual Orientation [...] history exists Medical Devices Implanted Type Area Shredding Machine Knife Changer Device Identifier Shelf Expiration Date Model / Serial / Lot Knee Description:bilateral Hardware Description:head Procedures Procedure Name Priority Date/Time Associated Diagnosis Comments HEMOGLOBIN A1C Routine 12/07/2023 11:36 PM CDT MICROALBUMIN/CREATIN INE RATIO, RANDOM UR Routine 09/29/2020 1:44 PM TANNING CONSULTANT 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 EST. AVG GLUCOSE, A1C 171 mg/dL 12/08/2023 10:41 AM CDT [facility] Blood Venipuncture / Unknown 12/07/2023 11:36 PM CDT 12/07/2023 11:40 PM CDT Narrative [facility] - 12/08/2023 10:41 AM CDT HGB A1C INTERPRETATION NORMAL: <5.7% PRE-DIABETES: 5.7 - 6.4% DIABETES: 6.5% OR GREATER us Valdez Castro MD CHEMISTRY ORDERABLES Final Resul t [facility]# [id number] [address] [place] [address] * (ABNORMAL) MICROALBUMIN/CREATININE RATIO, RANDOM UR (09/29/2020 1:44 PM TANNING CONSULTANT) MICROALBUMIN, URINE 2.2 No Reference Range mg/dL 09/29/2020 2:48 PM TANNING CONSULTANT [facility] CREATININE, URINE 38.5(L) 40.0 - 278.0 mg/dL 09/29/2020 2:48 PM TANNING CONSULTANT [facility] Comment:Reference Range vari es with fluid intake and diet. MICROALBUMIN/ CREAT RATIO, UR 57.1(H) <17.0 mg/g 09/29/2020 2:48 PM [facility] Urine URINE SPECIMEN OBTAINED BY CLEAN CATCH PROCEDURE / Unknown Collection / Unknown 09/29/2020 1:44 PM TANNING CONSULTANT 09/29/2020 1:59 PM TANNING CONSULTANT [facility] - 09/29/2020 2:48 PM TANNING CONSULTANT Condition Microalbumin/Creat ratio Normal Males <17 Normal Females <25 Microalbuminuria Males 17-299 Microalbuminuria Females 25-299 Overt proteinuria >=300 Rafy Ward MD URINE ORDERABLES Final Result [facility]# [id number] [address] [address] [place] [address] * LIPID PANEL (09/29/2020 1:44 PM TANNING CONSULTANT) CHOLESTEROL 93 <200 mg/dL 09/29/2020 2:38 PM [facility] TRIGLYCERIDE 72 <150 mg/dL 09/29/2020 2:38 PM [facility] HDL 53 40 - 59 mg/dL 09/29/2020 2:38 PM [facility] LDL CALCULATED 26 <100 mg/dL 09/29/2020 2:38 PM [facility] NON-HDL CHOLESTEROL 40 <130 mg/dL 09/29/2020 2:38 PM [facility] Blood Venipuncture / Unknown 09/29/2020 1:44 PM TANNING CONSULTANT 09/29/2020 1:59 PM TANNING CONSULTANT [facility] - 09/29/2020 2:38 PM TANNING CONSULTANT TOTAL CHOLESTEROL mg/dL Desirable <200 Borderline high [...] Ward MD CHEMISTRY ORDERABLES Final Re sult [facility]# [id number] [address] [place] [address] from Last 3 Months or Most Recently Relevant to Health Maintenance Insurance RX [employer] RX Member Subscriber Plan / Payer (Ef fective 2023-Present) Name:Cosme Javier Relation to Subscriber:Self Name:Cosme Javier Payer ID:Not on file Group ID:[id number] Type:RX Medicare Part D Address: [place] [place] Advance Directives For more information, please contact: [phone] * NO CPR (In Event of Cardiopulmonary [...] 9:43 AM 07/15/2017 5:31 PM Care Teams Mathematics Education Professor Relationship Specialty Start Date End Date Dear, Campbell Bullard DO [facility] [place] [address] PCP - General Family Practice 07/09/22
--- OUTSIDE RECORDS SUMMARY | 2025-03-07 18:03 | XMS_ITS | CONTINUITY OF CARE DOCUMENT ---
Author Name monica anderson Address Unknown Organization [facility] Address [address] [place] [address] Phone [phone] Care Team Providers Care Customer Engineer Name Role Phone Jessy Sofia MD Unavailable [phone] SANJUANITA ERNST MD Unavailable SANJUANITA ERNST MD Unavailable [phone] PROBLEMS Condition Status Date Provider Notes S/P [...] In-person encounter Office Visit Jessy Sofia MD [facility] Cardiology examination - In-person encounter Office Visit Braxton Gee MD [facility] - In-person encounter Office Visit Braxton Gee MD [facility] - In-person encounter Office Visit Braxton Gee MD [facility] BradycardiaBifascicular block - In-person encounter Office Visit Jessy Sofia MD [facility] SyncopeHematuria - In-person encounter Office Visit Jessy Sofia MD [facility] DM - type 2HTN essentialOsteoarthritisHypercoagulable stateOld myocardial infarctionDVT VITAL SIGNS Date Observation Value Provider Body Mass Index (Ratio) 29.55 kg/m2 Ria Sofia MD blood pressure, diastolic 77 mm[Hg] Armida desai [facility] blood pressure, systolic 132 mm[Hg] Fiona lu [facility] oxygen saturation, oximetry 97 % Conchis [facility] pulse rate 60 /min Conchis [facility] blood pressure, cuff size regular Armida desai [facility] weight E&M 224 [lb_av] Conchis [facility] height E&M 73 [in_i] [facility] Body Mass Index (Ratio) 27.70 kg/m2 [...] pressure, diastolic 76 mm[Hg] [facility], systolic 150 mm[Hg] Mcay [facility]iaSt[facility] oxygen saturation, oximetry 94 % [facility] pulse rate 74 /min [facility] respiratory rate E&M 12 /min [facility] weight E&M 208 [lb_av] [facility] height E&M 73 [in_i] [facility] blood pressure, cuff size regular An [facility]ineSt. [facility] Body Mass Index (Ratio) 27.97 kg/m2 Karel Soto oxygen saturation, oximetry 98 % Madison Moreland pulse rate 57 /min Madison [facility] blood pressure, diastolic 64 mm[Hg] Garry Ferris blood pressure, systolic 135 mm[Hg] Dangelo ri Aniceto weight E&M 212 [lb_av] Madison [facility] height E&M 73 [in_i] Madison [facility] Body Mass Index (Ratio) 26.65 kg/m2 Ria Sofia MD blood pressure, diastolic 65 mm[Hg] Lore [facility]oySt. [facility] blood pressure, systolic 120 mm[Hg] Macy b[facility]iaSt. [facility] oxygen saturation, oximetry 98 % [facility] pulse rate 68 /min [facility] respiratory rate E&M 14 /min [facility] weight E&M 202 [lb_av] [facility] height E&M 73 [in_i] [facility] blood pressure, cuff size regular An iyah Iraheta Body Mass Index (Ratio) 29.42 kg/m2 Karel as Charles blood pressure, diastolic 75 mm[Hg] Li nkLogic blood pressure, systolic 130 mm[Hg] Danielle kLogic blood pressure, cuff size regular Fa gennaro Tapia blood pressure, diastolic 75 mm[Hg] Fa ith [place] blood pressure, systolic 130 mm[Hg] Addison [facility] pulse rate 86 /min [facility] oxygen saturation, oximetry 96 % [facility] respiratory rate E&M 16 /min Elisa Gabe iller weight E&M 223 [lb_av] [facility] height E&M 73 [in_i] [facility] ALLERGIES Allergy Name Onset Date Reaction Criticality Status PENICILLIN High Criticality active MORPHINE High Criticality active REASON FOR REFERRAL Date Service [Description: Dr. Armida acevedo] HISTORY OF MEDICATION USE Medication Status Instructions Dates Provider Indications Com ments amiodarone 200 mg tablet active TAKE 1 TABLET BY MOUTH TWICE A DAY 1 Zakiya Banda clindamycin HCl 300 mg capsule active Take 1 capsule by mouth three times a day 3 Braxton Gee MD clindamycin HCl 300 mg capsule completed - 3 Braxton Gee MD tramadol 50 mg tablet active 1 tablet every six hours for pain 3 Braxton Gee MD Eliquis 5 mg tablet active Jessy Melgarity 1.5 mg/0.5 mL pen injector active Jessy Sofia MD omeprazole 20 mg capsule,delayed release(/EC) active Jessy Sofia MD Synjardy XR 5-1,000 mg tablet, IR - ER, biphasic 24hr active Jessy Melgarity 3 mg/0.5 mL pen injector completed - 5 Sanjaya N Saheta MD Trulicity 1.5 mg/0.5 mL pen injector completed - 5 Jessy Sofia MD Myrbetriq 50 mg tablet extended release 24 hr active Jessy Sofia MD diclofenac sodium 1% gel active Jessy Sofia MD tamsulosin 0.4 mg capsule active Jsesy Sofia MD sildenafil (pulm.hypertensi on) 20 mg [...] 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 y,Hx of Saulius Marlen MAZARIEGOS smoking status Former smoker Campbell calderon smoking status Former smoker Jessy carrasquillo MD smoking status Former smoker Jessy carrasquillo MD FUNCTIONAL STATUS Date Observation Value Provider HRA, CV Assess/Plan, Angina (inactive) Management Plan continue current therapy Jessy Sofia MD INSURANCE PROVIDERS Payer name Policy type / Coverage type [place] red constitution party ID AARP MEDICARE ADVANTAGE ST 0 003 (HMO POS) Medicare [id number] [facility] Medicaid 4 [id number] ADVANCE DIRECTIVES Name Date DISCUSSED - NO DECISION MADE TREATMENT PLAN Date Name Performer Cardiology: Annie Jhaveri. Had hematuria. Was evaluated at [facility] and has chronic acosta. Jessy Sofia MD Cardiology: Annie Jhaveri. Had hematuria. Was evaluated at [facility] and has chronic acosta. S ays that he was told he has sticky blood in the past, currently on eliquis T his visit has been a part of the consistent, comprehensive, and ongoing management of the chronic medical condition(s) listed above for the patient. Jessy Sofia MD Cardiology: O n Elisidney. Had hematuria. Was evaluated at [facility] and has chronic acosta. Jessy Sofia MD Cardiology: H is updated medication list for this problem includes: Lisinopril 2.5 Mg Tablet (Lisinopril) Jessy Sofia MD Cardiology:unclear w hy he passed out pacer check to be done today Jessy Sofia MD Electrophysiology Braxton simmons MD Electrophysiology: H is updated medication list for this problem includes: Lisinopril 2.5 Mg Tablet (Lisinopril) Braxton Gee MD Electrophysiology ulius Kalvai iris MAZARIEGOS Electrophysiology Braxton Farrellvai iris MAZARIEGOS Electrophysiology: H is updated medication list for this problem includes: Lisinopril 2.5 Mg Tablet (Lisinopril) Braxton Gee MD Electrophysiology: H is updated medication list for this problem includes: Prednisone 20 Mg Tablet (Prednisone) Lisinopril 2.5 Mg Tablet (Lisinopril) Braxton Gee MD Electrophysiology: H is updated medication list for this problem includes: Lisinopril 2.5 Mg Tablet (Lisinopril) Braxton Farrellvaisaura MAZARIEGOS Electrophysiology:In cision is healing well. No swelling or infection. H is updated medication list for this problem includes: Lisinopril 2.5 Mg Tablet (Lisinopril) Braxton Gee MD Electrophysiology: O n Shakila. Had hematuria. Was evaluated at [facility] and has chronic acosta. S ays that [...] dual chamber PPM as he has prolonged [place] and prolonged QRS and 2 syncopal events. [...] n Eliquis. Had hematuria. Was evaluated at [facility] and has chronic acosta. Campbell Soto Cardiology: H is updated medication list for this problem includes: Trulicity 1.5 Mg/0.5 Ml Pen Injector (Dulaglutide) Synjardy Xr 5-1,000 Mg Tablet, Ir - Er, Biphasic 24hr (Empagliflozin-metformin) Lisinopril 2.5 Mg Tablet (Lisinopril) Metformin 500 Mg Tablet Extended Release 24 Hr (Metformin) Jessy Sofia MD Cardiology: a bnormal EKG suggestive of old inferior wall; [place] , [place] stents in 5246-6053, [place] in , done at [facility] on asa 81mg H is updated medication list for this problem includes: Lisinopril 2.5 Mg Tablet (Lisinopril) Jessy Sofia MD Cardiology:On Eliqui s. Had hematuria. Was evaluated at [facility] and has chronic acosta. S ays that he was told he has sticky blood in the past, currently on eliquis T his visit has been a part of the consistent, comprehensive, and ongoing management of the chronic medical condition(s) listed above for the patient. Jessy Sofia MD Cardiology:On Eliqui s. Had hematuria. Was evaluated at [facility] and has chronic acosta. Jessy Sofia MD Cardiology:On Eliqui s. Had hematuria. Was evaluated at [facility] and has chronic acosta. Jessy Sofia MD [...] dual chamber PPM as he has prolonged [place] and prolonged QRS and 2 syncopal events. [...] blood in the past, currently on shakila Soifa MD Cardiology:abnormal EKG suggestive of old inferior wall; [place] , had stents in 4964-6182, [place] in , done at [facility] on asa 81mg H is updated medication [...]
--- OUTSIDE RECORDS SUMMARY | 2025-03-07 18:03 | XMS_ITS ---
Author Organization [facility] Address [address] [facility] [address] [facility] [address] [place] [address] Care Team Providers Care Personnel Scheduler Name Role Phone Alana Avilaerjit Unavailable [phone] Problems Problem Type SNOMED Code ICD Code Onset Dates Problem Status W/U Status Risk Notes Problem Chronic kidney disease stage 3 (disorder) (414586162) Stage 3 chronic kidney disease (N18.30) Active confirmed Problem Diabetic renal disease (150060713) Type 2 diabetes mellitus with diabetic chronic kidney disease (E11.22) Active confirmed Problem Essential hypertension (80335507) Essential hypertension (I10) Active confirmed Problem Hyperlipidemia (73434539) Hyperlipidemia, unspecified (E78.5) Active confirmed Encounters Encounter Location Date Provider Diagnosis [facility] [address] [facility] [address] [place] [address] 09/09/2024 Melvin Avila Stage 3 chronic kidn [...] JUDIMARY GRACE XIONGDOB: [birth year] (79 yo M)Acc No.[id number]:09/09/2024 Progress Notes Patient: MARY GRACE SINGH Provider: Belkys GARCIA MD, F.A.C.P, F.A.S.N. :1945 A ge:79 Y S ex:Male Date:09/09/2024 Address:[address] [place] [address] Subjective: * Chief Complaints: * * Medical History: Objective: * Vitals: Assessment: * Assessment: 1. S tage 3 chronic kidney disease - N18.30 (Primary) 2 . T ype 2 diabetes mellitus with diabetic chronic kidney disease - E11.22 3 . E ssential hypertension - I10 4 . H yperlipidemia, unspecified - E78.5 Plan: * Treatment: * Billing Information: * Visit Code: 55178 Office Visit, New Pt., Level 5. * Procedure Codes: * Electronic signature of Ora Avila MD on 03/07/2025 at 06:03 PM CDT Sign off status: Pending * Provider: Belkys GARCIA MD, F.A.C.P, F.A.S.N. Date: 11/10/2023 Generated for Printing/Faxing/eTransmitting on: 0 03/07/2025 06:03 PM CDT
--- OUTSIDE RECORDS SUMMARY | 2025-03-07 18:03 | XMS_ITS | Encounter Summary ---
Author Organization [facility] Address 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
--- OUTSIDE RECORDS SUMMARY | 2025-03-07 18:03 | XMS_ITS | Encounter Summary ---
Author Organization [facility] Address 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
--- OUTSIDE RECORDS SUMMARY | 2025-03-07 18:04 | XMS_ITS | Clinical Summary ---
Author Organization [facility] Address [facility] [place] [address] Care Team Providers Care Rn Burn Name Role Phone Sahara Lee MD Primary [...] without hematuria 2023 DVT (deep venous thrombosis) ([facility]) 1 11/07/2022 Hypercoagulable state ([facility]) 09/06/2023 Osteoarthrosis 09/06/2023 Old myocardial infarction [...] vein thrombosis (DVT) of right tibial vein ([facility]) 04/17/2022 Overview (08/26/2024): Last Assessment & [...] disorder, without long-term current use of insulin ([facility]) 04/17/2022 Diabetic polyneuropathy asso ciated with type 2 diabetes mellitus ([facility]) 04/17/2022 Former smoker 04/17/2022 Overview (08/26/2024): Last Assessment & Plan: Quit 38 years ago -Not candidate for lung cancer screening - is due for abdominal aortic aneurysm screening Gastroesophageal reflux disease without esophagi tis 04/17/2022 Overview (08/26/2024): Last Assessment & Plan: Chronic, stable - omeprazole 20mg Mixed hyperlipidemia 04/17/2022 Type 2 diabetes mellitus wit h hyperglycemia ([facility]) 04/17/2022 Overview (08/26/2024): Diagnosed around 2004. Complicated by peripheral neuropathy, CAD s/p stent placement, multiple TIAs. On Gabapentin 300mg bid for neuropathy. 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 AND FILL Gender Identity Not on file Sexual Orientation Not on file Last Filed Vital Signs Vital Sign Reading Time Taken Comments Blood Pressure 135/82 08/26/2024 9:10 AM FRUIT PACK[employer] FACE [employer] FILL Pulse 64 08/26/2024 8:45 AM FR[employer] P[employer] FACE [employer] FILL Temperature 36.3 C (97.4 F) 03/20/2024 8:24 AM CDT Respiratory Rate 16 08/26/2024 8:45 AM FRUIT PACKER FACE AND FILL Oxygen Saturation 97% 08/26/2024 8:45 AM FRUIT PACK[employer] FACE [employer] FILL Inhaled Oxygen Concentration - - Weight 94.8 kg (209 lb) 08/26/2024 8:45 AM FR[employer] P[employer] FACE [employer] FILL Height 185.4 cm (6' 1) 08/26/2024 8:45 AM FRUIT PACKER FACE [employer] FILL Body Mass Index 27.57 08/26/2024 8:45 AM FRUIT PACKER FACE [employer] FILL Plan of Treatment Upcoming Encounters Date Type Department Care Team (Late st Contact Info) Description 06/15/2025 10:40 AM CDT Office Visit [facility] - [address] [place] [address] Amadeo Armstrong MD [address] [place] [address] Health Maintenance Due Date Last Done Comments [...] 0209/2022, 02/11/2022, Additional history exists PHQ-2 (Physician [place]) 09/23/2024 Pneumococcal Vaccine: 50+ Years Completed 10/17/2016, [...] age to complete this topic Insurance MED [facility] MEDICARE [employer] MEDICAID DEPT OF HUMAN [address] Care Teams Rn Burn Relationship Specialty Start Date End Date Sahara Lee MD [address] [address] PCP - General INTERNAL MEDICINE 03/20/24
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
--- OUTSIDE RECORDS SUMMARY | 2025-03-07 19:14 | XMS_ITS | Encounter Summary ---
Author Organization [facility] Address 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
--- OUTSIDE RECORDS SUMMARY | 2025-03-07 19:14 | XMS_ITS | Clinical Summary ---
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 Gender Identity Not on file Sexual [...] history exists Medical Devices Implanted Type Area Mixing Machine Tender Cork Gasket Device Identifier Shelf Expiration Date Model / Serial / Lot Knee Description:bilateral Hardware Description:head Procedures Procedure Name Priority Date/Time Associated Diagnosis Comments HEMOGLOBIN A1C Routine 12/07/2023 11:36 PM CDT MICROALBUMIN/CREATIN INE RATIO, RANDOM UR Routine 09/29/2020 1:44 PM GAS COMPRESSOR TURBINE OPERATOR 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 AVG GLUCOSE, A1C 171 mg/dL 12/08/2023 10:41 AM CDT [facility] [employer] [facility] Blood Venipuncture / Unknown 12/07/2023 11:36 PM CDT 12/07/2023 11:40 PM CDT Narrative [facility] - 12/08/2023 10:41 AM CDT HGB A1C INTERPRETATION NORMAL: <5.7% PRE-DIABETES: 5.7 - 6.4% DIABETES: 6.5% OR GREATER us Valdez Castro MD CHEMISTRY ORDERABLES Final Resul t [facility] [employer] [facility]# [id number] [address] [facility] [place] [address] * (ABNORMAL) MICROALBUMIN/CREATININE RATIO, RANDOM UR (09/29/2020 1:44 PM GAS COMPRESSOR TURBINE OPERATOR) MICROALBUMIN, URINE 2.2 No Reference Range mg/dL 09/29/2020 2:48 PM GAS COMPRESSOR TURBINE OPERATOR [facility] CREATININE, URINE 38.5(L) 40.0 - 278.0 mg/dL 09/29/2020 2:48 PM GAS COMPRESSOR TURBINE OPERATOR [facility] Comment:Reference Range vari es with fluid intake and diet. MICROALBUMIN/ CREAT RATIO, UR 57.1(H) <17.0 mg/g 09/29/2020 2:48 PM [facility] [employer] [facility] Urine URINE SPECIMEN OBTAINED BY CLEAN CATCH PROCEDURE / Unknown Collection / Unknown 09/29/2020 1:44 PM GAS COMPRESSOR TURBINE OPERATOR 09/29/2020 1:59 PM GAS COMPRESSOR TURBINE OPERATOR [facility] [employer] [facility] - 09/29/2020 2:48 PM GAS COMPRESSOR TURBINE OPERATOR Condition Microalbumin/Creat ratio Normal Males <17 Normal Females <25 Microalbuminuria Males 17-299 Microalbuminuria Females 25-299 Overt proteinuria >=300 Rafy Ward MD URINE ORDERABLES Final Result [facility] [employer] [facility]# [id number] [address] [facility] [address] [place] [address] * LIPID PANEL (09/29/2020 1:44 PM GAS COMPRESSOR TURBINE OPERATOR) CHOLESTEROL 93 <200 mg/dL 09/29/2020 2:38 PM [facility] [employer] [facility] TRIGLYCERIDE 72 <150 mg/dL 09/29/2020 2:38 PM [facility] [employer] [facility] HDL 53 40 - 59 mg/dL 09/29/2020 2:38 PM [facility] [employer] [facility] LDL CALCULATED 26 <100 mg/dL 09/29/2020 2:38 PM [facility] NON-HDL CHOLESTEROL 40 <130 mg/dL 09/29/2020 2:38 PM [facility] Blood Venipuncture / Unknown 09/29/2020 1:44 PM GAS COMPRESSOR TURBINE OPERATOR 09/29/2020 1:59 PM GAS COMPRESSOR TURBINE OPERATOR [facility] [employer] [facility] - 09/29/2020 2:38 PM GAS COMPRESSOR TURBINE OPERATOR TOTAL CHOLESTEROL mg/dL Desirable <200 Borderline high [...] Ward MD CHEMISTRY ORDERABLES Final Re sult [facility]# [id number] [address] [place] [address] from Last 3 Months or Most Recently Relevant to Health Maintenance Insurance RX [employer] RX Member Subscriber Plan / Payer (Ef fective 2023-Present) Name:Cosme Javier Relation to Subscriber:Self Name:Cosme Javier Payer ID:Not on file Group ID:[id number] Type:RX Medicare Part D Address: [address] [place] Advance Directives For more information, please contact: [phone] * NO CPR (In Event of Cardiopulmonary [...] 9:43 AM 07/15/2017 5:31 PM Care Teams Scabbler Relationship Specialty Start Date End Date Dear, Campbell Bullard DO [facility] [place] [address] PCP - General Family Practice 07/09/22
--- OUTSIDE RECORDS SUMMARY | 2025-03-07 19:14 | XMS_ITS | Continuity of Care Document ---
Author Name [facility] Organization [facility] Care Team Providers Care Saddle Tree Stitcher Name Role Phone [facility] Unavailable Unavailable Problems Combined list of problems from Department of Defense and Veterans Affairs facilities. It does not include entries that were removed or entered in error. Problem Status Onset Date Problem Type Date of Resolution Comments Source Acute Deep Vein Thrombosis of Lower Limb ([facility] [id number]) Active 022 Condition Jan 18, 2022 Entered By: STONE DEL CASTILLO Comment: ER visit [facility] with Dr Max Sevilla [facility] Lumbago Active [address] [facility] Adjustment disorder with mixed emotional features Active Condition [facility] Allergic rhinitis Active Condition [facility] Allergic Rhinitis ([facility] [id number]) Active Condition [facility] Bacterial urinary infection Active Condition [facility] Benign essential hypertension Active Condition [place] [facility] Benign Prostatic Hypertrophy Without Outflow Obstruction ([facility] [id number]) Active Condition [facility] CAD - Coronary artery disease Active Condition [facility] CAD - Coronary Artery Disease ([facility] [id number]) Active Condition Jul 26, 2020 Entered By: TI JOSHUA Comment: s/p IN & PCI/stent [facility] CALCANEAL SPUR Active Condition [facility] Cardiomyopathy Active Condition [facility] Cerebral artery occlusion Active Condition [facility] Cerebral infarction Active Condition [facility] Cervical Spinal Stenosis ([facility] [id number]) Active Condition [facility] Chest pain Active Condition [facility] Chronic venous insufficiency Active Condition [facility] Congestive heart failure Active Condition [place] [facility] Coronary arteriosclerosis Active Condition [facility] Coronary arteriosclerosis Active Condition [place] [facility] DANDRUFF Active Condition [facility] Dementia Active Condition [place] [facility] Depression Active Condition [facility] Depressive disorder Active Condition [place] Diabetes Mellitus Type 2 ([facility] [id number]) Active Condition [place] [facility] Diabetes Mellitus Type II or unspecified with Neurological Manifestations Active Condition May 30, 2013 Entered By: DAMI MAGANA NN Comment: see list of NON VA meds (glipizide / metformin) [facility] Diabetic Neuropathies (ICD-9-CM 250.60/357.2) Active Condition [facility] DISC DISPLACEMENT NOS Active Condition [facility] DJD Active Condition [facility] Dry Eye Syndrome Active Condition [facility] Dyslipidemia (ICD-9-CM 272.4) Active Condition [facility] Edema Active Condition [facility] Exposure to potentially hazardous substance Active Condition [facility] [facility] FACIAL NERVE DIS NEC Active Condition [facility] Finding related to compliance with treatment Active Condition [place] [facility] Gastroenteritis Active Condition [place] [facility] GERD - Gastro-Esophageal Reflux Disease ([facility] [id number]) Active Condition [facility] Gout Active Condition [facility] H/O: Stroke ([facility] [id number]) Active Condition [facility] HEADACHE Active Condition [facility] Health Maintenance Active Condition N 2008 Entered By: DAMI MAGANA NN Comment: on RX from LMD/doesn't know names/will bring list nxt visit [facility] HERED FRUCTOSE INTOLERAN Active Condition [facility] History of cholecystectomy Active Condition Apr 26, 2020 Entered By: STONE DEL CASTILLO Comment: patient reports done in early [facility] [place] Plaque Active [facility] Homeless single person Active Condition [place] Hyperlipidemia Active Condition [facility] Hypertensive disorder Active Condition [facility] IDIO PERIPH NEURPTHY NEC Active Condition [facility] Insect Bite NEC (ICD-9-CM 919.4) Active Condition [facility] Kidney Stone ([facility] [id number]) Active Condition [facility] Chcf (current) use of Anticoagulants Active Condition Aug 03, 2009 Entered By: DAMI MAGANA NN Comment: PT TAKES COUMADIN FROM IN COMMUNITY [facility] Low Back Pain Active Condition [facility] Low back pain (SNOMED CT 855624990) Active Condition [facility] Marital/family problems (ICD-9-CM V61.0) Active Condition [facility] Memory loss (ICD-9-CM 780.93) Active Condition [facility] Mood Disorder due to a General Medical Condition (ICD-9-CM 293.83) Active Condition [facility] Normal grief reaction Active Condition [facility] Numbness and tingling sensation of skin Active Condition [facility] Obesity Active Condition [facility] Obesity * (ICD-9-CM 278.00) Active Condition [facility] Osteitis deformans (SNOMED CT 8037586) Active Condition [facility] Osteoarthritis (SCT 084136653) Active Condition Jul 26, 2020 Entered By: TI JOSHUA Comment: s/p B [facility] Osteoarthritis * (ICD-9-CM 715.90) Active Condition [facility] Other General Symptoms (ICD-9-CM 780.9) Active Condition Nov 18, 2001 Entered By: KAYCEE ISRAEL Comment: Episodic loss of consciousness [facility] OTHER SEBORRHEIC DERMATITIS Active Condition [facility] Overactive bladder Active Condition [facility] PAGET'S DISEASE Active Condition [facility] PROLONG POSTTRAUM STRESS Active Condition [facility] PVD * (ICD-9-CM 443.9) Active Condition [facility] Relationship distress with spouse or intimate partner Active Condition [facility] Restless legs Active Condition [facility] SKIN ANOMALY NEC Active Condition [facility] Sleep Apnea (SCT 52172734) Active Condition Jul 26, 2020 Entered By: TI JOSHUA Comment: intolerant of CPAP [facility] Spinal Stenosis of Lumbar Region (SCT 15351198) Active Condition [facility] Sprain of unspecified site of knee and leg (ICD-9-CM 844.9) Active Condition [facility] SURGERY FOLLOW-UP Active Condition [facility] Tick bite Active Condition [place] [facility] Type II diabetes mellitus uncontrolled Active Condition [facility] Unresolved Active Condition [facility] URIN TRACT INFECTION NOS Active Condition [facility] Vascular dementia (SNOMED CT 916853257) Active Condition [facility] Vision, abnormal Active Condition [facility] Vitamin D deficiency Active Condition [facility] Xeroderma Active Condition [facility] Acute conjunctivitis (ICD-9-CM 372.00) Inactive Condition 08/03/2009 [facility] Acute sinusitis (ICD-9-CM 461.9) Inactive Condition 08/03/2009 [facility] DM Type II w/o Eye Disease Inactive Condition 08/03/2009 [facility] Gastroenteritis * (ICD-9-CM 558.9) Inactive Condition 08/03/2009 [facility] Hip: arthralgia (pain on rotation, pain in groin) * (ICD-9-CM 719.45) Inactive Condition 08/03/2009 [facility] Influenza * (ICD-9-CM 487.1) Inactive Condition 08/03/2009 [facility] Diagnosis: ICD-10-CM Z51.81 Encounter for therapeutic drug level monitoring Active Diagnosis [facility] Diagnosis: ICD-10-CM I82.409 Acute embolism and thombos unsp deep vn unsp lower extremity Active Diagnosis [facility] Diagnosis: ICD-10-CM Z13.5 Encounter for screening for eye and ear disorders Active Diagnosis [facility] Diagnosis: ICD-10-CM E11.9 Type 2 diabetes mellitus without complications Active Diagnosis [facility] Diagnosis: ICD-10-CM Z79.899 Other halfway (current) drug therapy Active Diagnosis [facility] Diagnosis: ICD-10-CM I25.10 Athscl heart disease of [place] coronary artery w/o ang pctrs Active Diagnosis [facility] Diagnosis: ICD-10-CM M25.562 Pain in left knee Active Diagnosis [facility] Diagnosis: ICD-10-CM M79.605 Pain in left leg Active Diagnosis 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 Diagnosis [place] [facility] Medications Combined list of outpatient medications from [...] FOR ANTICOAG ULATION ORAL SUSPEND ED 12/31/2025 [id number] AMILCAR SHERWOOD S 2024 90 [facility] APIXABAN 5MG TAB TAKE ONE-HALF TABLET BY MOUTH TWICE A DAY FOR ANTICOAG ULATION ORAL DISCONT INUED 01/22/2025 [id number] BARBARA HUNT 2024 60 [place] [facility] APIXABAN 5MG TAB TAKE ONE-HALF TABLET BY MOUTH TWICE A DAY FOR ANTICOAG ULATION ORAL DISCONT INUED (EDIT) 12/23/2024 [id number] 4 BARBARA HUNT 2023 90 [place] [facility] ATORVASTATI N CA 80MG TAB TAKE ONE-HALF TABLET BY MOUTH EVERY EVENING TO LOWER CHOLESTE ROL ORAL ACTIVE 12/16/2025 [id number] LUIS MANUEL,NI DHI [address] [facility] DULAGLUTIDE 1.5MG/0.5ML INJ,SOLN,PE N INJECT 1.5MG/0. 5ML UNDER THE SKIN EVERY WEEK SUBCUT ANEOUS ACTIVE MARY ELLEN DEL CASTILLO 2021 [facility] [place] [facility] DULAGLUTIDE 1.5MG/0.5ML INJ,SOLN,PE N INJECT 1.5MG (0.5ML) SUBCUTAN EOUSLY EVERY WEEK SUBCUT ANEOUS ACTIVE TARA JOSHUA VIDHI 2019 [facility] EMPAGLIFLOZ IN 5MG/METFORM IN 1000MG TAB,ORAL TAKE ONE TABLET BY MOUTH TWICE A DAY ORAL ACTIVE MARY ELLEN DEL CASTILLO 2021 [facility] EMPAGLIFLOZ IN 5MG/METFORM IN 1000MG TAB,ORAL TAKE ONE TABLET BY MOUTH TWO TIMES A DAY ORAL ACTIVE TARA JOSHUA VIDHI 2019 [facility] GABAPENTIN 300MG CAP TAKE ONE CAPSULE BY MOUTH TWICE A DAY FOR PAIN ORAL ACTIVE 12/16/2025 [id number] 5 LUIS MANUEL,NI I 2024 [address] [facility] [facility] GABAPENTIN 300MG CAP TAKE ONE CAPSULE BY MOUTH TWICE A DAY FOR PAIN ORAL 12/06/2024 [id number] 4 José Miguel TOURE 2023 180 [place] [facility] LISINOPRIL 5MG TAB TAKE ONE-HALF TABLET BY MOUTH ONCE A DAY FOR HEART OR BLOOD PRESSURE ORAL ACTIVE 12/16/2025 [id number] LUIS MANUEL,NI DHI 2024 45 [facility] OMEPRAZOLE 20MG CAP,EC TAKE ONE CAPSULE BY MOUTH TWICE A DAY TO LOWER STOMACH ACID. TAKE 30 MINUTES PRIOR TO FOOD. ORAL ACTIVE 12/16/2025 [id number] 5 LUIS MANUEL,NI DHI 2024 180 [facility] OMEPRAZOLE 20MG CAP,EC TAKE ONE CAPSULE BY MOUTH TWICE A DAY TO LOWER STOMACH ACID. TAKE 30 MINUTES PRIOR TO FOOD. ORAL DISCONT INUED 05/12/2025 [id number] 5 José Miguel TOURE 2023 180 [facility] OMEPRAZOLE 20MG CAP,EC TAKE ONE CAPSULE BY MOUTH TWICE A DAY TO LOWER STOMACH ACID. TAKE 30 MINUTES PRIOR TO FOOD. ORAL DISCONT INUED 05/07/2024 [id number] 4 MARY ELLEN DEL CASTILLO 2022 [address] [facility] SERTRALINE HCL 50MG TAB TAKE ONE-HALF TABLET BY MOUTH EVERY MORNING ORAL ACTIVE 12/16/2025 [id number] CHRISTOPHER ISSA DHI 2024 [address] [facility] SERTRALINE HCL 50MG TAB TAKE ONE-HALF TABLET BY MOUTH EVERY MORNING FOR DEPRESSI ON ORAL DISCONT INUED 06/24/2025 [id number] 5 LALIROGER JIMI 2023 [address] [facility] SERTRALINE HCL 50MG TAB TAKE ONE-HALF TABLET BY MOUTH EVERY MORNING FOR DEPRESSI ON ORAL DISCONT INUED 12/17/2024 [id number] 4 ROGER ESCALERAA 2023 [address] [facility] TAMSULOSIN HCL 0.4MG CAP TAKE ONE CAPSULE BY MOUTH EVERY EVENING APPROXIM ATELY 30 MINUTES AFTER THE SAME MEAL EACH DAY (FOR PROSTATE ) ORAL ACTIVE 12/16/2025 [id number] 5 CHRISTOPHER ISSA I 2024 [address] [facility] Allergies, Adverse Reactions, Alerts Combined list of allergies from Department of Defense and Veterans Affairs facilities. It does not include entries that were removed or entered in error. Substance Category Reaction Severity Reaction type Status Date Reported Comments Source AMITRIPTYLIN E Propensity to adverse reactions to drug (finding) Physical aggression active 2 [facility] ASPIRIN Propensity to adverse reactions to drug (finding) active 5 [facility] METFORMIN Propensity to adverse reactions to drug (finding) Diarrhea active 3 [facility] MORPHINE Propensity to adverse reactions to drug (finding) Physical aggression active 2 [facility] OXCARBAZEPIN E Propensity to adverse reactions to drug (finding) Psychotic disorder active 2 [facility] PENICILLIN Propensity to adverse reactions to drug (finding) active 5 [facility] PENICILLIN Propensity to adverse reactions to drug (finding) HIVES active 3 [facility] PENICILLIN Propensity to adverse reactions to drug (finding) Urticaria active 0 [place] MIKAEL BAILEY 15 TRAZODONE Propensity to adverse reactions to drug (finding) Bleeding active 2 [facility] Immunizations Combined list of available immunizations from the Department of Defense and Veterans Affairs facilities. Immunization Series Date Given Administered By Site Reaction Lot Number CVX Code Drug Quality Intern Status Comments Source INFLUENZA, UNSPECIFIED FORMULATION 2020 88 complet ed [facility], VISN 15 INFLUENZA, SEASONAL, INJECTABLE, PRESERVATIVE FREE 2016 140 complet ed [facility] PNEUMOCOCCAL CONJUGATE PCV 13 2016 133 complet ed [facility] INFLUENZA, UNSPECIFIED FORMULATION 2014 88 complet ed [employer]/ [id number]/ [facility] PNEUMOCOCCAL CONJUGATE PCV 13 2014 133 complet ed [facility] INFLUENZA, UNSPECIFIED FORMULATION 2013 88 complet ed as per [facility] PNEUMOCOCCAL POLYSACCHARID E PPV23 2013 33 complet ed Merck/Lot # [id number], January 30, 2015 [facility] INFLUENZA, UNSPECIFIED FORMULATION 2013 88 complet ed CSL BIOTHERAP IES/[id number] [facility] INFLUENZA, UNSPECIFIED FORMULATION 2012 88 complet ed Gl[employer] ne/[id number] [facility] INFLUENZA (HISTORICAL) 2011 88 complet ed Novartis/ Lot# [id number] [facility] TDAP 2011 115 complet ed Sanofi Pasteur/L ot# [id number] [facility] INFLUENZA (HISTORICAL) 2011 88 complet ed [facility] NOVEL INFLUENZA-H1N 1-09, ALL FORMULATIONS 2009 128 complet ed Novartis/ Lot# [id number] [facility] INFLUENZA (HISTORICAL) 2008 NONE 88 complet ed Completed Series, Left Deltoid [facility] [place] [facility] PNEUMOCOCCAL POLYSACCHARID E PPV23 2008 33 complet ed Right Deltoid [facility] INFLUENZA (HISTORICAL) 2007 88 complet ed [facility] INFLUENZA (HISTORICAL) 2006 88 complet ed Left Deltoid [facility] INFLUENZA (HISTORICAL) 2005 88 complet ed Left Deltoid [facility] INFLUENZA (HISTORICAL) 2004 88 complet ed Left Deltoid [facility] INFLUENZA (HISTORICAL) 2003 88 complet ed Left Deltoid [facility] PNEUMOCOCCAL POLYSACCHARID E PPV23 2003 33 complet ed Left Deltoid [facility] INFLUENZA (HISTORICAL) 2002 88 complet ed Left Deltoid [facility] INFLUENZA (HISTORICAL) 2000 88 complet ed [facility] N TD(ADULT) UNSPECIFIED FORMULATION 2000 139 complet ed [facility] TETANUS TOXOID, UNSPECIFIED FORMULATION 1997 KAYCEE LINDSEY X 112 complet ed [facility] N Results Combined list of recent [...] Dec 11, 2024 04:22 PM Reporting Lab: [facility] [address] [phone] Performing Lab: [facility] [address] [facility] [address] [facility] COMPREHEN SIVE METABOLIC PANEL UREA NITROGEN [MASS/VOLUM E] IN SERUM OR PLASMA 19.8 mg/dL 9.0 - 25.0 12/16 Specimen Type: PLASMA Comment: No hemolysis noted. Ordering Provider: LIZA ISSA Report Released Date/Time: Dec 11, 2024 04:22 PM Reporting Lab: [facility] [address] [address] Performing Lab: [facility] [address] [place] [phone] [facility] COMPREHEN SIVE METABOLIC PANEL GLUCOSE [MASS/VOLUM E] IN SERUM OR PLASMA 167 mg/dL 72 - 99 12/16 H Specimen Type: PLASMA Comment: No hemolysis noted. Ordering Provider: LIZA ISSA Report Released Date/Time: Dec 11, 2024 04:22 PM Reporting Lab: [facility] [address] [address] Performing Lab: [facility] [address] [phone] [facility] COMPREHEN SIVE METABOLIC PANEL SODIUM [MOLES/VOLU ME] IN SERUM OR PLASMA 139 meq/L 136 - 145 12/16 Specimen Type: PLASMA Comment: No hemolysis noted. Ordering Provider: LIZA ISSA Report Released Date/Time: Dec 11, 2024 04:22 PM Reporting Lab: [facility] [address] [address] Performing Lab: [facility] [address] [phone] [facility] COMPREHEN SIVE METABOLIC PANEL POTASSIUM [MOLES/VOLU ME] IN SERUM OR PLASMA 4.0 meq/L 3.5 - 5 12/16 Specimen Type: PLASMA Comment: No hemolysis noted. Ordering Provider: LIZA ISSA Report Released Date/Time: Dec 11, 2024 04:22 PM Reporting Lab: [facility] [address] [phone] Performing Lab: [facility] [address] [phone] [facility] COMPREHEN SIVE METABOLIC PANEL CHLORIDE [MOLES/VOLU ME] IN SERUM OR PLASMA 102 meq/L 98 - 107 12/16 Specimen Type: PLASMA Comment: No hemolysis noted. Ordering Provider: LIZA ISSA Report Released Date/Time: Dec 11, 2024 04:22 PM Reporting Lab: [facility] [address] [phone] Performing Lab: [facility] [address] [phone] [facility] COMPREHEN SIVE METABOLIC PANEL CARBON DIOXIDE, TOTAL [MOLES/VOLU ME] IN SERUM OR PLASMA 26 meq/L 22 - 31 12/16 Specimen Type: PLASMA Comment: No hemolysis noted. Ordering Provider: LIZA ISSA Report Released Date/Time: Dec 11, 2024 04:22 PM Reporting Lab: [facility] [address] [address] Performing Lab: [facility] [address] [address] [facility] COMPREHEN SIVE METABOLIC PANEL CALCIUM [MASS/VOLUM E] IN SERUM OR PLASMA 10.0 mg/dL 8.4 - 10.4 12/16 Specimen Type: PLASMA Comment: No hemolysis noted. Ordering Provider: LIZA ISSA Report Released Date/Time: Dec 11, 2024 04:22 PM Reporting Lab: [facility] [address] [phone] Performing Lab: [facility] [address] [phone] [place] [address] COMPREHEN SIVE METABOLIC PANEL PROTEIN [MASS/VOLUM E] IN SERUM OR PLASMA 7.9 g/dL 6 - 8.6 12/16 Specimen Type: PLASMA Comment: No hemolysis noted. Ordering Provider: LIZA ISSA Report Released Date/Time: Dec 11, 2024 04:22 PM Reporting Lab: [facility] [address] [address] Performing Lab: [facility] [address] [phone] [facility] COMPREHEN SIVE METABOLIC PANEL ALBUMIN [MASS/VOLUM E] IN SERUM OR PLASMA 4.2 g/dL 3.4 - 5 12/16 Specimen Type: PLASMA Comment: No hemolysis noted. Ordering Provider: LIZA ISSA Report Released Date/Time: Dec 11, 2024 04:22 PM Reporting Lab: [facility] [address] [address] Performing Lab: [facility] [address] [place] [phone] [facility] COMPREHEN SIVE METABOLIC PANEL BILIRUBIN.T OTAL [MASS/VOLUM E] IN SERUM OR PLASMA 0.5 mg/dL 0.2 - 1.2 12/16 Specimen Type: PLASMA Comment: No hemolysis noted. Ordering Provider: LIZA ISSA Report Released Date/Time: Dec 11, 2024 04:22 PM Reporting Lab: [facility] [address] [address] Performing Lab: [facility] [address] [address] [facility] COMPREHEN SIVE METABOLIC PANEL ALKALINE PHOSPHATASE [ENZYMATIC ACTIVITY/VO LUME] IN SERUM OR PLASMA 133 U/L 40 - 150 12/16 Specimen Type: PLASMA Comment: No hemolysis noted. Ordering Provider: LIZA ISSA Report Released Date/Time: Dec 11, 2024 04:22 PM Reporting Lab: [facility] [address] [place] [phone] Performing Lab: [address] [address] [facility] COMPREHEN SIVE METABOLIC PANEL ASPARTATE AMINOTRANSF ERASE [ENZYMATIC ACTIVITY/VO LUME] IN SERUM OR PLASMA 27 U/L 5 - 34 12/16 Specimen Type: PLASMA Comment: No hemolysis noted. Ordering Provider: LIZA ISSA Report Released Date/Time: Dec 11, 2024 04:22 PM Reporting Lab: [facility] [address] [place] [phone] Performing Lab: [facility] [address] [place] [phone] [facility] COMPREHEN SIVE METABOLIC PANEL ALANINE AMINOTRANSF ERASE [ENZYMATIC ACTIVITY/VO LUME] IN SERUM OR PLASMA 16 U/L 8 - 40 12/16 Specimen Type: PLASMA Comment: No hemolysis noted. Ordering Provider: LIZA ISSA Report Released Date/Time: Dec 11, 2024 04:22 PM Reporting Lab: [facility] [address] [address] Performing Lab: [facility] [address] [phone] [facility] COMPREHEN SIVE METABOLIC PANEL GLOMERULAR FILTRATION RATE/1.73 SQ M.PREDICTED [VOLUME RATE/AREA] IN SERUM, PLASMA OR BLOOD BY CREATININE- BASED FORMULA (CKD-EPI 2020) 86.9 60 12/16 Specimen Type: PLASMA Comment: No hemolysis noted. Ordering Provider: LIZA ISSA Report Released Date/Time: Dec 11, 2024 04:22 PM Reporting Lab: [facility] [address] [address] Performing Lab: [facility] [address] [address] [facility] HGA1C HEMOGLOBIN A1C/HEMOGLO BIN.TOTAL IN BLOOD 7.3 4.0 - 6.0 12/16 H Specimen Type: BLOOD No comment entered. Ordering Provider: LIZA ISSA Report Released Date/Time: Dec 11, 2024 04:22 PM Reporting Lab: [place] [address] [phone] Performing Lab: [facility] [address] [address] [facility] LIPID PANEL (STL) CHOLESTEROL [MASS/VOLUM E] IN SERUM OR PLASMA 90 mg/dL 0 - 200 12/16 Specimen Type: PLASMA Comment: No hemolysis noted. Ordering Provider: LIZA ISSA Report Released Date/Time: Dec 11, 2024 04:22 PM Reporting Lab: [place] [address] [address] Performing Lab: [facility] [address] [facility] [facility] [address] [facility] LIPID PANEL (STL) TRIGLYCERID E [MASS/VOLUM E] IN SERUM OR PLASMA 63 mg/dL 0 - 150 12/16 Specimen Type: PLASMA Comment: No hemolysis noted. Ordering Provider: LIZA ISSA Report Released Date/Time: Dec 11, 2024 04:22 PM Reporting Lab: [facility] [address] [facility] [address] Performing Lab: [facility] [address] [facility] [address] [facility] LIPID PANEL (STL) CHOLESTEROL IN LDL [MASS/VOLUM E] IN SERUM OR PLASMA BY CALCULATION 32 mg/dL 12/16 Specimen Type: PLASMA Comment: No hemolysis noted. Ordering Provider: LIZA ISSA Report Released Date/Time: Dec 11, 2024 04:22 PM Reporting Lab: [facility] [address] [facility] [address] Performing Lab: [facility] [address] [place] [address] [facility] LIPID PANEL (STL) CHOLESTEROL IN HDL [MASS/VOLUM E] IN SERUM OR PLASMA 45 mg/dL 40 12/16 Specimen Type: PLASMA Comment: No hemolysis noted. Ordering Provider: LIZA ISSA Report Released Date/Time: Dec 11, 2024 04:22 PM Reporting Lab: [address] [address] Performing Lab: [address] [address] [facility] MICRAL/CR EAT PROFILE (STL) ALBUMIN [MASS/VOLUM E] IN URINE 226.8 mg/L 12/16 Specimen Type: URINE No comment entered. Ordering Provider: LIZA ISSA Report Released Date/Time: Dec 11, 2024 04:22 PM Reporting Lab: [address] [address] Performing Lab: [address] [address] [facility] MICRAL/CR EAT PROFILE (STL) ALBUMIN/CRE ATININE [MASS RATIO] IN URINE 422 mg/g 0 - 29 12/16 H Specimen Type: URINE No comment entered. Ordering Provider: LIZA ISSA Report Released Date/Time: Dec 11, 2024 04:22 PM Reporting Lab: [facility] [address] [place] [phone] Performing Lab: [facility] [address] [place] [address] [facility] MICRAL/CR EAT PROFILE (STL) CREATININE [MASS/VOLUM E] IN URINE 53.7 mg/dL 63 - 166 12/16 L Specimen Type: URINE No comment entered. Ordering Provider: LIZA ISSA Report Released Date/Time: Dec 11, 2024 04:22 PM Reporting Lab: [facility] [address] [place] [address] Performing Lab: [facility] [address] [place] [address] [facility] B12 COBALAMIN (VITAMIN B12) [MASS/VOLUM E] IN SERUM OR PLASMA 400 pg/mL 213 - 816 08/11 Specimen Type: SERUM No comment entered. Ordering Provider: JEANINE CARDENAS Report Released Date/Time: Aug 11, 2024 02:09 PM Reporting Lab: [address] [address] Performing Lab: [address] [address] [facility] COMPREHEN SIVE METABOLIC PANEL CREATININE [MASS/VOLUM E] IN SERUM OR PLASMA 1.18 mg/dL 0.7 - 1.3 08/11 Specimen Type: PLASMA Comment: No hemolysis noted. Ordering Provider: JEANINE CARDENAS Report Released Date/Time: Aug 11, 2024 02:09 PM Reporting Lab: [address] [address] Performing Lab: [facility] [address] [place] [address] [facility] COMPREHEN SIVE METABOLIC PANEL UREA NITROGEN [MASS/VOLUM E] IN SERUM OR PLASMA 23.5 mg/dL 9.0 - 25.0 08/11 Specimen Type: PLASMA Comment: No hemolysis noted. Ordering Provider: JEANINE CARDENAS Report Released Date/Time: Aug 11, 2024 02:09 PM Reporting Lab: [facility] [address] [place] [address] Performing Lab: [address] [address] [facility] COMPREHEN SIVE METABOLIC PANEL GLUCOSE [MASS/VOLUM E] IN SERUM OR PLASMA 94 mg/dL 72 - 99 08/11 Specimen Type: PLASMA Comment: No hemolysis noted. Ordering Provider: JEANINE CARDENAS Report Released Date/Time: Aug 11, 2024 02:09 PM Reporting Lab: [facility] [address] [facility] [address] Performing Lab: [facility] [address] [place] [address] [facility] COMPREHEN SIVE METABOLIC PANEL SODIUM [MOLES/VOLU ME] IN SERUM OR PLASMA 139 meq/L 136 - 145 08/11 Specimen Type: PLASMA Comment: No hemolysis noted. Ordering Provider: JEANINE CARDENAS Report Released Date/Time: Aug 11, 2024 02:09 PM Reporting Lab: [facility] [address] [place] [address] Performing Lab: [address] [address] [facility] COMPREHEN SIVE METABOLIC PANEL POTASSIUM [MOLES/VOLU ME] IN SERUM OR PLASMA 4.2 meq/L 3.5 - 5 08/11 Specimen Type: PLASMA Comment: No hemolysis noted. Ordering Provider: JEANINE CARDENAS Report Released Date/Time: Aug 11, 2024 02:09 PM Reporting Lab: [facility] [address] [place] [address] Performing Lab: [facility] [address] [place] [address] [facility] COMPREHEN SIVE METABOLIC PANEL CHLORIDE [MOLES/VOLU ME] IN SERUM OR PLASMA 105 meq/L 98 - 107 08/11 Specimen Type: PLASMA Comment: No hemolysis noted. Ordering Provider: JEANINE CARDENAS Report Released Date/Time: Aug 11, 2024 02:09 PM Reporting Lab: [facility] [address] [place] [address] Performing Lab: [facility] [address] [place] [address] [facility] COMPREHEN SIVE METABOLIC PANEL CARBON DIOXIDE, TOTAL [MOLES/VOLU ME] IN SERUM OR PLASMA 24 meq/L 22 - 31 08/11 Specimen Type: PLASMA Comment: No hemolysis noted. Ordering Provider: JEANINE CARDENAS Report Released Date/Time: Aug 11, 2024 02:09 PM Reporting Lab: [facility] [address] [place] [address] Performing Lab: [address] [address] [facility] COMPREHEN SIVE METABOLIC PANEL CALCIUM [MASS/VOLUM E] IN SERUM OR PLASMA 9.7 mg/dL 8.4 - 10.4 08/11 Specimen Type: PLASMA Comment: No hemolysis noted. Ordering Provider: JEANINE CARDENAS Report Released Date/Time: Aug 11, 2024 02:09 PM Reporting Lab: [address] [address] Performing Lab: [address] [address] [facility] COMPREHEN SIVE METABOLIC PANEL PROTEIN [MASS/VOLUM E] IN SERUM OR PLASMA 7.7 g/dL 6 - 8.6 08/11 Specimen Type: PLASMA Comment: No hemolysis noted. Ordering Provider: JEANINE CARDENAS Report Released Date/Time: Aug 11, 2024 02:09 PM Reporting Lab: [address] [address] Performing Lab: [address] [address] [facility] COMPREHEN SIVE METABOLIC PANEL ALBUMIN [MASS/VOLUM E] IN SERUM OR PLASMA 3.9 g/dL 3.4 - 5 08/11 Specimen Type: PLASMA Comment: No hemolysis noted. Ordering Provider: JEANINE CARDENAS Report Released Date/Time: Aug 11, 2024 02:09 PM Reporting Lab: [address] [address] Performing Lab: [address] [address] [facility] COMPREHEN SIVE METABOLIC PANEL BILIRUBIN.T OTAL [MASS/VOLUM E] IN SERUM OR PLASMA 0.5 mg/dL 0.2 - 1.2 08/11 Specimen Type: PLASMA Comment: No hemolysis noted. Ordering Provider: JEANINE CARDENAS Report Released Date/Time: Aug 11, 2024 02:09 PM Reporting Lab: [facility] [address] [place] [address] Performing Lab: [facility] [address] [place] [address] [facility] COMPREHEN SIVE METABOLIC PANEL ALKALINE PHOSPHATASE [ENZYMATIC ACTIVITY/VO LUME] IN SERUM OR PLASMA 132 U/L 40 - 150 08/11 Specimen Type: PLASMA Comment: No hemolysis noted. Ordering Provider: JEANINE CARDENAS Report Released Date/Time: Aug 11, 2024 02:09 PM Reporting Lab: [address] [address] Performing Lab: [address] [address] [facility] COMPREHEN SIVE METABOLIC PANEL ASPARTATE AMINOTRANSF ERASE [ENZYMATIC ACTIVITY/VO LUME] IN SERUM OR PLASMA 20 U/L 5 - 34 08/11 Specimen Type: PLASMA Comment: No hemolysis noted. Ordering Provider: JEANINE CARDENAS Report Released Date/Time: Aug 11, 2024 02:09 PM Reporting Lab: [address] [address] Performing Lab: [facility] [address] [facility] [address] [facility] COMPREHEN SIVE METABOLIC PANEL ALANINE AMINOTRANSF ERASE [ENZYMATIC ACTIVITY/VO LUME] IN SERUM OR PLASMA 17 U/L 8 - 40 08/11 Specimen Type: PLASMA Comment: No hemolysis noted. Ordering Provider: JEANINE CARDENAS Report Released Date/Time: Aug 11, 2024 02:09 PM Reporting Lab: [address] [address] Performing Lab: [facility] [address] [place] [phone] [facility] COMPREHEN SIVE METABOLIC PANEL GLOMERULAR FILTRATION RATE/1.73 SQ M.PREDICTED [VOLUME RATE/AREA] IN SERUM, PLASMA OR BLOOD BY CREATININE- BASED FORMULA (CKD-EPI 2020) 63.2 60 08/11 Specimen Type: PLASMA Comment: No hemolysis noted. Ordering Provider: JEANINE CARDENAS Report Released Date/Time: Aug 11, 2024 02:09 PM Reporting Lab: [facility] [address] [facility] [address] Performing Lab: [facility] [address] [facility] [address] [facility] HGA1C HEMOGLOBIN A1C/HEMOGLO BIN.TOTAL IN BLOOD 7.1 4.0 - 6.0 08/11 H Specimen Type: BLOOD No comment entered. Ordering Provider: JEANINE CARDENAS Report Released Date/Time: Aug 11, 2024 02:09 PM Reporting Lab: [facility] [address] [facility] [address] Performing Lab: [facility] [address] [facility] [address] [facility] LIPID PANEL (STL) CHOLESTEROL [MASS/VOLUM E] IN SERUM OR PLASMA 98 mg/dL 0 - 200 08/11 Specimen Type: PLASMA Comment: No hemolysis noted. Ordering Provider: JEANINE CARDENAS Report Released Date/Time: Aug 11, 2024 02:09 PM Reporting Lab: [facility] [address] [facility] [address] Performing Lab: [facility] [address] [facility] [address] [facility] LIPID PANEL (STL) TRIGLYCERID E [MASS/VOLUM E] IN SERUM OR PLASMA 51 mg/dL 0 - 150 08/11 Specimen Type: PLASMA Comment: No hemolysis noted. Ordering Provider: JEANINE CARDENAS Report Released Date/Time: Aug 11, 2024 02:09 PM Reporting Lab: [facility] [address] [facility] [address] Performing Lab: [address] [address] [facility] LIPID PANEL (STL) CHOLESTEROL IN LDL [MASS/VOLUM E] IN SERUM OR PLASMA BY CALCULATION 43 mg/dL 08/11 Specimen Type: PLASMA Comment: No hemolysis noted. Ordering Provider: JEANINE CARDENAS Report Released Date/Time: Aug 11, 2024 02:09 PM Reporting Lab: [address] [address] Performing Lab: [address] [address] [facility] LIPID PANEL (STL) CHOLESTEROL IN HDL [MASS/VOLUM E] IN SERUM OR PLASMA 45 mg/dL 40 08/11 Specimen Type: PLASMA Comment: No hemolysis noted. Ordering Provider: JEANINE CARDENAS Report Released Date/Time: Aug 11, 2024 02:09 PM Reporting Lab: [address] [address] Performing Lab: [address] [address] [facility] TSH (MA-PB) THYROTROPIN [UNITS/VOLU ME] IN SERUM OR PLASMA 3.281 u[IU]/ mL 0.47 - 5 08/11 Specimen Type: SERUM No comment entered. Ordering Provider: JEANINE CARDENAS Report Released Date/Time: Aug 11, 2024 02:09 PM Reporting Lab: [address] [address] Performing Lab: [address] [address] [facility] VITAMIN D, 25-HYDROX Y 25-HYDROXYV ITAMIN D3 [MASS/VOLUM E] IN SERUM OR PLASMA 31.4 ng/mL 30 - 96 08/11 Specimen Type: SERUM No comment entered. Ordering Provider: JEANINE CARDENAS Report Released Date/Time: Aug 11, 2024 02:09 PM Reporting Lab: [address] [address] Performing Lab: [facility] [address] [facility] [address] [facility] Vital Signs Combined list of inpatient and outpatient Vital Signs from Department of Defense and Veterans Affairs, ranging from 12 months to all on record, depending upon the facility. Vital Sign Value Date Comments Source SYSTOLIC BLOOD PRESSURE 139 12/16/19 12:52:02 [facility] DIASTOLIC BLOOD PRESSURE 74 025 12:52:02 [facility] PULSE OXIMETRY 96 12/15/2024 12:52:02 [facility] WEIGHT 215.8 12/15/2024 12:52:02 [facility] BMI 29 kg/m2 12/15/2024 12:52:02 [facility] PAIN 0 12/15/2024 12:52:02 [facility] HEIGHT 72 12/15/2024 12:52:02 [facility] TEMPERATURE 98 12/15/2024 12:52:02 [facility] PULSE 63 12/15/2024 12:52:02 [facility] RESPIRATION 16 12/15/2024 12:52:02 [facility] SYSTOLIC BLOOD PRESSURE 135 08/11/20 13:38:00 [facility] DIASTOLIC BLOOD PRESSURE 70 024 13:38:00 [facility] PULSE OXIMETRY 97 08/11/2024 13:38:00 [facility] WEIGHT 198 08/11/2024 13:38:00 [facility] BMI 26 kg/m2 08/11/2024 13:38:00 [facility] PAIN 0 08/11/2024 13:38:00 [facility] HEIGHT 73 08/11/2024 13:38:00 [facility] TEMPERATURE 98 08/11/2024 13:38:00 [facility] PULSE 65 08/11/2024 13:38:00 [facility] RESPIRATION 16 08/11/2024 13:38:00 [facility] Encounters Combined list of: 1) Encounters from Department of Veterans Affairs facilities going backup to the last 18 months, not all VA inpatient encounters are included; 2) Encounters from the Department of Defense facilities going backup to 280 months. Location Location Details Encounter Type Encounter Number Reason For Visit Attending Provider ADM Date DC Date Status Disposition Source [place] [facility] [place] En[place] [id number] 09/18 [place] [facility] [place] [facility] QNHP OL DIG ASSMT&MGMT 5-10 [id number] Diagnos is: ICD-10- CM Z79.01 intermediate (curren t) use of anticoa BARBARA Martinez 09/20 [place] [facility] Outpatient Encounter [id number] 09/26 [facility] [place] [facility] [place] Encounter [id number] 09/30 [place] [facility] Encounter [id number] 10/04 [facility] Encounter [id number] 10/20 [facility] Outpatient Encounter [id number] 11/07 [facility] [place] [facility] [place] Encounter [id number] 11/12 [place] [facility] [place] [facility] Out[place] Encounter [id number] ALBINO OSBORN 11/13 [place] [facility] [place] [facility] Outpatient Encounter [id number] [place] [facility] Outpatient Encounter [id number] 12/01 [facility] [place] [facility] Outpatient Encounter [id number] JILL MARTINES 12[facility]01 [facility] En[facility] [id number] 12/08 [facility] [place] [facility] Outpatient Encounter [id number] 12/08 [facility] En[facility] [id number] Gabe BOLDEN 12/12 [facility] FEE [id number] Diagnos is: ICD-10- CM F33.40 Major depress rigoberto disorde r, recurre nt, in remissi on, unsp ESCALERA,12/16 [facility] OFFICE O/P EST LOW 20 MIN [id number] Diagnos is: ICD-10- CM F33.40 Major depress rigoberto disorde r, recurre nt, in remissi on, unsp ,12/16 [facility] EMERGENCY DEPT VISIT MOD MDM [id number] Diagnos is: ICD-10- CM M79.605 Pain in left leg PRECIOUS DIAL S 12/19 [facility] Outpatient Encounter [id number] PRECIOUS DIAL S 12/19 [facility] GAIT TRAINING THERAPY [id number] Diagnos is: ICD-10- CM M25.562 Pain in left knee RAMY JUDGE L 12/19 [facility] MTMS BY PHARM EST 15 MIN [id number] Diagnos is: ICD-10- CM Z51.81 Encount er for therape utic drug level monitor BARBARA Hand 12/22 [place] [facility] Outpatient Encounter [id number] 12/22 [facility] Outpatient Encounter [id number] 12/23 [facility]P EST LOW 20 MIN [id number] Diagnos is: ICD-10- CM I25.10 Athscl heart disease of [place] coronar y artery w/o ang pctrs DAVID TOURE 12/31 [facility] En[facility] [id number] PATTIE MORENO 01/06 [facility] Encounter [id number] 01/12 [facility] Outpatient Encounter [id number] 01/26 [facility] Outpatient Encounter [id number] 01/26 [facility] Outpatient Encounter [id number] 01/27 [facility] [place] [facility] Outpatient Encounter [id number] KAIA SUAREZ 02/03 [place] [facility] [place] [facility] Outpatient Encounter [id number] 02/24 [place] [facility] Outpatient Encounter [id number] 02/25 [facility] Outpatient Encounter [id number] 02/26 [facility] Outpatient Encounter [id number] 02/26 [facility] Outpatient Encounter [id number] GLEN PARADA 03/05 [facility] Outpatient Encounter [id number] 05/11 [facility] Out[facility] Encounter [id number] 07/01 [facility] Outpatient Encounter [id number] 07/15 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 15 MIN [id number] Diagnos is: ICD-10- CM Z79.899 Other halfway (curren t) drug therapy ELMER CERNA 07/23 [facility] Outpatient Encounter [id number] 07/27 [facility] Encounter [id number] RONALD JOHNSON 07/28 [facility] Out[facility] Encounter [id number] 08/05 [facility] Outpatient Encounter [id number] HECTOR CARDENASA D 08/05 [facility] Outpatient Encounter [id number] RONALD,JEANINE D 08/09 [facility] Outpatient Encounter [id number] SIMIN LEE C 08/11 [facility] Outpatient Encounter [id number] JEANINE CARDENAS D 08/12 [facility] Encounter [id number] SIMIN LEE 08/21 [facility] Encounter [id number] 08/23 [facility] Outpatient Encounter [id number] DAVID TOURE 08/25 [facility] Encounter [id number] RONALDJEANINE D 08/25 [facility] Encounter [id number] MYA FOSTER 10/03 [facility] Outpatient Encounter [id number] 03/02 /2025 [place] [facility] Outpatient Encounter [id number] 12/04 [facility] Outpatient Encounter [id number] SIMIN LEE 12/07 [facility] Outpatient Encounter [id number] JEANINE CARDENAS 12/07 [facility] Outpatient Encounter [id number] 12/09 [facility] Outpatient Encounter [id number] 12/15 [facility] Outpatient Encounter [id number] 12/15 [facility] OFFICE O/P EST MOD 30 MIN [id number] Diagnos is: ICD-10- CM E11.9 Type 2 diabete s mellitu s without complic ations LIZA ISSA HI 12/15 [facility] Outpatient Encounter [id number] 12/15 [facility] IMG RTA DETCJ/MNTR DS STAFF [id number] Diagnos is: ICD-10- CM Z13.5 Encount er for screeni ng for eye and ear disorde rs SIMIN LEE 12/15 [facility] IMG RTA DETC/MNTR DS PHY/QHP [id number] Diagnos is: ICD-10- CM Z13.5 Encount er for screeni ng for eye and ear disorde rs SIMIN LEE C 12/15 [facility] NQHP OL DIG ASSMT&MGMT 5-10 [id number] [id number] Diagnos is: ICD-10- CM Z51.81 Encount er for therape utic drug level monitor PAM Sin M 12/28 [facility] NQHP OL DIG ASSMT&MGMT 5-10 [id number] Diagnos is: ICD-10- CM I82.409 Acute embolis m and thombos unsp deep vn unsp lower extremi ty PAM LICONA 12/30 [facility] MTMS BY PHARM EST 15 MIN 14365-2.65 [id number] Diagnos is: ICD-10- CM Z51.81 Encount er for therape utic drug level monitor karen RETA DIANE 01/07 [facility] Social History Combined list of available smoking, tobacco, and other social history from [facility] Defense and [facility] facilities. Social History Type Response Date Comment Source Tobacco smoking status FLIS VA-TOBACCO QUIT 15 YRS OR MORE 07/23/2024 [facility] History of tobacco use VA-TOBACCO FORMER USER 07/23/2024 [facility] History of tobacco use VA-TOBACCO FORMER USER 04/09/2023 [facility] History of tobacco use VA-TOBACCO NEVER USED 01/10/2022 [facility] History of tobacco use VA-TOBACCO FORMER USER 09/04/2021 [facility] History of tobacco use VA-TOBACCO FORMER USER 07/26/2020 [facility] History of tobacco use VA-TOBACCO QUIT 15 YRS OR MORE 04/25/2020 [facility] History of tobacco use VA-TOBACCO NEVER USED 04/08/2019 [facility] History of tobacco use QUIT TOBACCO >7 YEARS AGO 10/17/2016 [facility] History of tobacco use V7-NO TOBACCO USE > 7 YEARS 03/21/2016 38 YEARS [facility] History of tobacco use NON-TOBACCO USER 04/05/2015 [facility] History of tobacco use V7-NO TOBACCO USE > 7 YEARS 04/05/2015 [facility] History of tobacco use V7-LIFETIME TOBACCO NON USER 07/19/2014 [facility] History of tobacco use V7-LIFETIME TOBACCO NON USER 05/30/2013 [facility] History of tobacco use V7-NO TOBACCO USE > 7 YEARS 06/03/2012 [facility] History of tobacco use V7-LIFETIME TOBACCO NON USER 05/09/2011 [facility] History of tobacco use V7-NO TOBACCO USE > 7 YEARS 06/03/2009 [facility] History of tobacco use V7-TOBACCO QUIT DATE 03/09/2008 [facility] [facility] History of tobacco use V7-HX TOBACCO USER >12 MONTHS <7 YEARS 03/09/2008 [facility] History of tobacco use V7-LIFETIME TOBACCO NON USER 01/31/2007 [facility] History of tobacco use V7-LIFETIME NON/TOBACCO USER 01/01/2006 [facility] History of tobacco use LIFETIME NON-TOBACCO USER 12/10/2002 [facility] History of tobacco use CURRENT NON-TOBACCO USER-HX OF USE 11/13/2001 [facility] History of tobacco use TOBACCO USE 03/18/2001 stopped long ago [facility] History of tobacco use PREVIOUS SMOKER 12/03/2000 [facility] Advance Directives List of completed, amended, or rescinded Advance Directives on record at Department of [facility] Affairs facilities. An actual copy of the Directive is not included. Date Advance Directive Provider Source 06/02/1997 ADVANCE DIRECTIVE MARILYN BARRERA [facility]
--- OUTSIDE RECORDS SUMMARY | 2025-03-07 19:14 | XMS_ITS | Encounter Summary ---
Author Organization [facility] Health Address [address] [address] Care Team Providers Care Paralegal Specialist Name Role Phone Abraham Cohn DO Primary Care Provider + Unknown, Provider Primary Care Provider Unavaila ble Encounter Details Date Type Department Care Team (Late st Contact Info) Description 01/05/2021 [facility] Outpatient Visit [facility] Orthopedics - Radiology [address] [place] [address] [place] [address] Document, Scanned Social History Tobacco Use Types Packs/Day Years Used Date Smoking Tobacco: Former Smokeless Tobacco: Never Alcohol Use Standard Drinks/Week Comments No 0 (1 standard drink = 0.6 oz pur e alcohol) Sex and Gender Information Value Date Recorded Sex Assigned at Not on file 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
--- OUTSIDE RECORDS SUMMARY | 2025-03-07 19:14 | XMS_ITS | Clinical Summary ---
Author Organization [facility] er Address [address] [place] [address] Care Team Providers Care Shoe Dyer Name Role Phone No, Physician Unavailable Dear, [...] 08/06/2022 Assessment & Plan (08/06/2022 12:13 PM PRESIDENTIAL SUPPORT SPECIALIST): Chronic, worsening - Refer to vascular surgery [...] 04/17/2022 Assessment & Plan (11/13/2022 2:04 PM PRESIDENTIAL SUPPORT SPECIALIST): Chronic, R anterior tibial (12/12); unprovoked per [...] surgery Assessment & Plan (08/06/2022 12:10 PM PRESIDENTIAL SUPPORT SPECIALIST): Chronic, R anterior tibial (12/12); unprovoked per [...] 04/17/2022 Assessment & Plan (08/06/2022 12:14 PM PRESIDENTIAL SUPPORT SPECIALIST): Chronic Complications: CAD, HTN, Neuropathy A1c: 8.0 [...] 04/17/2022 Assessment & Plan (08/06/2022 12:20 PM PRESIDENTIAL SUPPORT SPECIALIST): Chronic, controlled - lisinopril 2.5mg Assessment & [...] omeprazole 20mg Coronary artery disease invo lving [place] coronary artery of [place] heart without angina pectoris 04/17/2022 Assessment & [...] Type Department Care Team Description 03/03/2025 Telephone [facility] Medical Group Cardiology [address] [place] [address] Delmer Prince MD from Last [...] Comments Blood Pressure 137/63 11/20/2022 4:30 PM PRESIDENTIAL SUPPORT SPECIALIST Pulse 65 11/20/2022 4:55 PM PRESIDENTIAL SUPPORT SPECIALIST Temperature 36 C (96.8 F) 11/20/2022 10:41 AM PRESIDENTIAL SUPPORT SPECIALIST Respiratory Rate 18 11/20/2022 10:41 AM PRESIDENTIAL SUPPORT SPECIALIST Oxygen Saturation 100% 11/20/2022 4:55 PM PRESIDENTIAL SUPPORT SPECIALIST Inhaled Oxygen Concentration - - Weight 104.8 kg (231 lb) 11/20/2022 10:41 AM PRESIDENTIAL SUPPORT SPECIALIST Height 177.8 cm (5' 10) 11/13/2022 1:42 PM PRESIDENTIAL SUPPORT SPECIALIST Body Mass Index 33.15 11/13/2022 1:42 PM PRESIDENTIAL SUPPORT SPECIALIST Plan of Treatment Health Maintenance Due Date [...] Diagnosis Comments EGFR STAT 11/20/2022 3:11 PM PRESIDENTIAL SUPPORT SPECIALIST HEMOGLOBIN A1C Routine 11/13/2022 2:20 PM PRESIDENTIAL SUPPORT SPECIALIST 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, without long-term current use of insulin (HCC) HEPATITIS C RNA, QUANTITATIVE, PCR Routine 05/08/2022 10:08 AM CDT Need for hepatitis C screening test LIPID PANEL Routine 04/17/2022 9:43 AM CDT Coronary artery disease involving [place] coronary artery of [place] heart without angina pectoris ALBUMIN CREATININE RATIO, URINE Routine 04/17/2022 9:43 AM CDT 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 73 m2 [facility] Comment: Interpretive Data Reference Interval Normal >/= [...] last reviewed 2021. Blood 11/20/2022 3:11 PM PRESIDENTIAL SUPPORT SPECIALIST 11/20/2022 3:16 PM PRESIDENTIAL SUPPORT SPECIALIST us Abraham Coello MD LAB BLOOD ORDERABLES Fi nal Result [facility] [address] [place] [address] * (ABNORMAL) Hemoglobin A1c (11/13/2022 2:20 PM PRESIDENTIAL SUPPORT SPECIALIST) [facility] Hgb A1C 8.6(H) 4.0 - 5.6 % [facility] Estimated Average Glucose 200 mg/dL [facility] Comment: The ADA recommends reporting an estimated Average Glucose (eAG) with all Hemoglobin A1c results using the equation derived from a study of 507 normal and diabetic adults. Minority populations were underrepresented and children were not included. (Diabetes Care 31:0563-6040, 2008). The eAG is not equivalent to a fasting glucose. Blood 11/13/2022 2:20 PM PRESIDENTIAL SUPPORT SPECIALIST 11/13/2022 2:41 PM PRESIDENTIAL SUPPORT SPECIALIST us Campbell Bullard Dear DO LAB BLOOD ORDERABLES Fin al Result [facility] [address] [place] [address] * Hepatitis C (HCV) RNA PCR, quantitative (05/08/2022 10:08 AM CDT) [facility] HCV RNA IU/mL HCV Not Detected IU/mL [...] - 05/10/2022 8:17 AM CDT Performed at: [address] [place] [id number] Solder Leveler [employer]ed Circuit Boards: Jamar Cooper MD, Phone: [phone] us Campbell Bullard Dear DO LAB MICROBIOLOGY - GENER AL ORDERABLES Edited Result - Final Performing Organization Address [facility]/ZIP Co de Phone Number [facility] - [...] 04/18/2022 10:10 AM CDT Performed at: [address] [id number] [employer] Boards: Thad Peacock PhD, Phone: [phone] Campbell Bullard Dear DO LAB URINE ORDERABLES Fin al Result Performing Organization Address [facility] Co de Phone Number [facility] [...] - 04/18/2022 7:10 AM CDT Performed at: [address] [place] [id number] S[employer] Boards: Thad Peacock PhD, Phone: [phone] Campbell Bullard Dear DO LAB BLOOD ORDERABLES Fin al Result [facility] - 01 * Occult blood, fecal non neoplasm screening (11/22/2017 11:15 AM PRESIDENTIAL SUPPORT SPECIALIST) Collection date , feces [id number] [facility] Collection time 1, feces 1,115 [facility] Occult blood, fecal Negative Negative [facility] Stool 11/22/2017 11:1 5 AM PRESIDENTIAL SUPPORT SPECIALIST 11/22/2017 1:19 PM PRESIDENTIAL SUPPORT SPECIALIST Narrative [facility] - 11/22/2017 2:38 PM PRESIDENTIAL SUPPORT SPECIALIST Hakeem Muro DO LAB BODY FLUIDS AND STOOLS ORDERABLES Final Result [facility] [address] [facility] [place] [address] from Last 3 Months or Most Recently Relevant to Health Maintenance Insurance [place] [employer] [facility] DUAL COMPLETE [id number] [facility] MEDICARE Address: [address] [place] [address] IDPA [facility] MEDICARE ADVANTAGE [facility] Address: [address] [address] [place] [address] Care Teams Shoe Dyer Relationship Specialty Start Date End Date Dear, Campbell Bullard DO PCP - General Family Medicine 04/13/22 No, Physician 12/21/16
--- OUTSIDE RECORDS SUMMARY | 2025-03-07 19:14 | XMS_ITS | Encounter Summary ---
Author Organization [facility] Address 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
--- OUTSIDE RECORDS SUMMARY | 2025-03-07 19:14 | XMS_ITS | CONTINUITY OF CARE DOCUMENT ---
Author Name monica anderson Address Unknown Organization [facility] Address [address] [place] [address] Phone [phone] Care Team Providers Care Clinical Nutritionist Name Role Phone Jessy Sofia MD Unavailable SANJUANITA ERNST MD Unavailable SANJUANITA ERNST MD Unavailable PROBLEMS Condition Status [...] In-person encounter Office Visit Jessy Sofia MD [facility] Cardiology examination - In-person encounter Office Visit Braxton Gee MD [facility] - In-person encounter Office Visit Braxton Gee MD [facility] - In-person encounter Office Visit Braxton Gee MD [facility] BradycardiaBifascicular block - In-person encounter Office Visit Jessy Sofia MD [facility] SyncopeHematuria - In-person encounter Office Visit Jessy Sofia MD [facility] DM - type 2HTN essentialOsteoarthritisHypercoagulable stateOld myocardial infarctionDVT VITAL SIGNS Date Observation Value Provider Body Mass Index (Ratio) 29.55 kg/m2 Ria Sofia MD blood pressure, diastolic 77 mm[Hg] Armida desai [facility] blood pressure, systolic 132 mm[Hg] Fiona lu [facility] oxygen saturation, oximetry 97 % Conchis [facility] pulse rate 60 /min Conchis [facility] blood pressure, cuff size regular Armida desai [facility] weight E&M 224 [lb_av] Conchis [facility] height E&M 73 [in_i] [facility] Body Mass Index (Ratio) 27.70 [...] MD blood pressure, diastolic 76 mm[Hg] [facility], systolic 150 mm[Hg] [facility]acy [facility] oxygen saturation, oximetry 94 % [facility] pulse rate 74 /min [facility] respiratory rate E&M 12 /min [facility] weight E&M 208 [lb_av] [facility] height E&M 73 [in_i] [facility] blood pressure, cuff size regular [facility] Body Mass Index (Ratio) 27.97 kg/m2 Karel Soto oxygen saturation, oximetry 98 % Madison Moreland pulse rate 57 /min Madison Carleen [facility] blood pressure, diastolic 64 mm[Hg] Garry Ferris blood pressure, systolic 135 mm[Hg] Dangelo ri Aniceto weight E&M 212 [lb_av] Madison Carleen [facility] height E&M 73 [in_i] Madison Carleen [facility] Body Mass Index (Ratio) 26.65 kg/m2 Ria Sofia MD blood pressure, diastolic 65 mm[Hg] Lore [facility] blood pressure, systolic 120 mm[Hg] Macy [facility] oxygen saturation, oximetry 98 % [facility] pulse rate 68 /min [facility] respiratory rate E&M 14 /min [facility] weight E&M 202 [lb_av] [facility] height E&M 73 [in_i] [facility] blood pressure, cuff size regular An iyah Iraheta Body Mass Index (Ratio) 29.42 kg/m2 Karel as Charles blood pressure, diastolic 75 mm[Hg] Li nkLogic blood pressure, systolic 130 mm[Hg] Danielle kLogic blood pressure, cuff size regular Fa gennaro Tapia blood pressure, diastolic 75 mm[Hg] Fa ith [place] blood pressure, systolic 130 mm[Hg] Addison [facility] pulse rate 86 /min [facility] oxygen saturation, oximetry 96 % [facility] respiratory rate E&M 16 /min Elisa Gabe iller weight E&M 223 [lb_av] [facility] height E&M 73 [in_i] [facility] ALLERGIES Allergy Name Onset Date Reaction Criticality [...] Payer name Policy type / Coverage type [place] red libertarian ID [employer]ARP MEDICARE ADVANTAGE ST 0 003 (HMO POS) Medicare [id number] [facility] Medicaid 4 [id number] ADVANCE DIRECTIVES Name Date DISCUSSED - NO DECISION MADE TREATMENT PLAN Date Name Performer Cardiology: Annie Jhaveri. Had hematuria. Was evaluated at [place] and has chronic acosta. Jessy Sofia MD Cardiology: Annie Jhaveri. Had hematuria. Was evaluated at [place] and has chronic acosta. S ays that he was told he has sticky blood in the past, currently on eliquis T his visit has been a part of the consistent, comprehensive, and ongoing management of the chronic medical condition(s) listed above for the patient. Jessy Sofia MD Cardiology: O n Elisidney. Had hematuria. Was evaluated at [place] and has chronic acosta. Jessy Sofia MD [...] n Shakila. Had hematuria. Was evaluated at [place] and has chronic acosta. 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 [...] n Eliquis. Had hematuria. Was evaluated at [place] and has chronic acosta. Campbell Soto Cardiology: [...] inferior wall; [place] , [place] stents in [id number], [place] , done at [place] on asa 81mg H is updated medication list for this problem includes: Lisinopril 2.5 Mg Tablet (Lisinopril) Jessy Sofia MD Cardiology:On Eliqui s. Had hematuria. Was evaluated at [place] and has chronic acosta. S ays that he was told he has sticky blood in the past, currently on eliquis T his visit has been a part of the consistent, comprehensive, and ongoing management of the chronic medical condition(s) listed above for the patient. Jessy Sofia MD Cardiology:On Eliqui s. Had hematuria. Was evaluated at [place] and has chronic acosta. Jessy Sofia MD Cardiology:On Eliqui s. Had hematuria. Was evaluated at [place] and has chronic acosta. 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 [...] inferior wall; [place] , [place] stents [place] 2417-7294, [place] , done at [place] on asa 81mg H is updated medication [...]
--- OUTSIDE RECORDS SUMMARY | 2025-03-07 19:14 | XMS_ITS | Encounter Summary ---
Author Organization [facility] Address 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
--- OUTSIDE RECORDS SUMMARY | 2025-03-07 19:14 | XMS_ITS | Referral Summary ---
Author Organization [facility] er Address [address] [place] [address] Care Team Providers Care Sales Agent Marine Insurance Name Role Phone No, Physician Unavailable Dear, Campbell Bullard DO Primary Care Provider + Encounters Date Type Department Care Team Description 03/03/2025 Telephone [facility] Medical Group Cardiology [address] [place] [address] Delmer Prince MD from Last [...] 08/06/2022 Assessment & Plan (08/06/2022 12:13 PM PIT HOIST OPERATOR): Chronic, worsening - Refer to vascular surgery [...] 04/17/2022 Assessment & Plan (11/13/2022 2:04 PM PIT HOIST OPERATOR): Chronic, R anterior tibial (12/12); unprovoked per [...] surgery Assessment & Plan (08/06/2022 12:10 PM PIT HOIST OPERATOR): Chronic, R anterior tibial (12/12); unprovoked per [...] 04/17/2022 Assessment & Plan (08/06/2022 12:14 PM PIT HOIST OPERATOR): Chronic Complications: CAD, HTN, Neuropathy A1c: 8.0 [...] 04/17/2022 Assessment & Plan (08/06/2022 12:20 PM PIT HOIST OPERATOR): Chronic, controlled - lisinopril 2.5mg Assessment & [...] omeprazole 20mg Coronary artery disease invo lving [place] coronary artery of [place] heart without angina pectoris 04/17/2022 Assessment [...] Comments Blood Pressure 137/63 11/20/2022 4:30 PM PIT HOIST OPERATOR Pulse 65 11/20/2022 4:55 PM PIT HOIST OPERATOR Temperature 36 C (96.8 F) 11/20/2022 10:41 AM PIT HOIST OPERATOR Respiratory Rate 18 11/20/2022 10:41 AM PIT HOIST OPERATOR Oxygen Saturation 100% 11/20/2022 4:55 PM PIT HOIST OPERATOR Inhaled Oxygen Concentration - - Weight 104.8 kg (231 lb) 11/20/2022 10:41 AM PIT HOIST OPERATOR Height 177.8 cm (5' 10) 11/13/2022 1:42 PM PIT HOIST OPERATOR Body Mass Index 33.15 11/13/2022 1:42 PM PIT HOIST OPERATOR Plan of Treatment Not on file Procedures Procedure Name Priority Date/Time Associated Diagnosis Comments EGFR STAT 11/20/2022 3:11 PM PIT HOIST OPERATOR HEMOGLOBIN A1C Routine 11/13/2022 2:20 PM PIT HOIST OPERATOR 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, without long-term current use of insulin (HCC) HEPATITIS C RNA, QUANTITATIVE, PCR Routine 05/08/2022 10:08 AM CDT Need for hepatitis C screening test LIPID PANEL Routine 04/17/2022 9:43 AM CDT Coronary artery disease involving [place] coronary artery of [place] heart without angina pectoris ALBUMIN CREATININE RATIO, URINE Routine 04/17/2022 9:43 AM CDT 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, without long-term current use of insulin (HCC) OCCULT BLOOD, FECAL (FIT) Routine 11/22/2017 11:15 AM PIT HOIST OPERATOR from Last 3 Months or Most Recently Relevant to Health Maintenance Results * eGFR (11/20/2022 3:11 PM PIT HOIST OPERATOR) eGFR 95 mL/min/1. 73 m2 [facility] Comment: Interpretive Data Reference Interval Normal [...] last reviewed 2021. Blood 11/20/2022 3:11 PM PIT HOIST OPERATOR 11/20/2022 3:16 PM PIT HOIST OPERATOR Abraham Coello MD LAB BLOOD ORDERABLES Fi nal Result Performing Organization Address [facility] Phone Number [facility] [address] [place] [phone] * (ABNORMAL) Hemoglobin A1c (11/13/2022 2:20 PM PIT HOIST OPERATOR) Pathologist [facility] Hgb A1C 8.6(H) 4.0 - 5.6 % [facility] Estimated Average Glucose 200 mg/dL [facility] Comment: The ADA recommends reporting an estimated Average Glucose (eAG) with all Hemoglobin A1c results using the equation derived from a study of 507 normal and diabetic adults. Minority populations were underrepresented and children were not included. (Diabetes Care 31:7363-7109, 2008). The eAG is not equivalent to a fasting glucose. Blood 11/13/2022 2:20 PM PIT HOIST OPERATOR 11/13/2022 2:41 PM PIT HOIST OPERATOR Campbell Bullard Dear DO LAB BLOOD ORDERABLES Fin al Result Performing Organization Address [facility] Co de Phone Number [address] [address] * Hepatitis C (HCV) RNA PCR, quantitative [...] - 05/10/2022 8:17 AM CDT Performed at: [address] [id number] Flat Clothier: Jamar Cooper MD, Phone: [phone] Campbell Bullard Dear DO LAB MICROBIOLOGY - GENER AL ORDERABLES Edited Result - Final [facility] - * (ABNORMAL) Albumin Creatinine Ratio, [...] - 04/18/2022 10:10 AM CDT Performed at: [address] [id number] Flat Clothier: Thad Peacock PhD, Phone: [phone] Campbell Bullard Dear DO LAB URINE ORDERABLES Fin al Result Performing Organization Address City/[facility]/ZIP Co de Phone Number [facility] - * Lipid panel (04/17/2022 9:43 [...] 7:10 AM CDT Performed at: 01 - [facility] [id number] Flat Clothier: Thad Peacock PhD, Phone: [phone] us Campbell Oswald DO LAB BLOOD ORDERABLES Fin al Result Performing Organization Address [facility] Co de Phone Number [facility] - 01 * Occult blood, fecal non neoplasm screening (11/22/2017 11:15 AM PIT HOIST OPERATOR) Collection date , feces [id number] [facility] Collection time 1, feces 115 [facility] Occult blood, fecal Negative Negative [facility] Stool 11/22/2017 11:1 5 AM PIT HOIST OPERATOR 11/22/2017 1:19 PM PIT HOIST OPERATOR Narrative [facility] - 11/22/2017 2:38 PM PIT HOIST OPERATOR us Hakeem Muro DO LAB BODY FLUIDS AND STOOLS ORDERABLES Final Result Performing Organization Address [facility] Co de Phone Number [facility] [address] [facility] [place] [address] from Last 3 Months or Most Recently Relevant to Health Maintenance Insurance DUAL COMPLETE [id number] IDPA [facility] MEDICARE ADVANTAGE Care Teams Sales Agent Marine Insurance Relationship Specialty Start Date End Date Dear, Campbell Bullard DO PCP - General Family Medicine 04/13/22 No, Physician 12/21/16
--- OUTSIDE RECORDS SUMMARY | 2025-03-07 19:14 | XMS_ITS | Encounter Summary ---
Author Organization [facility] Address 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
--- OUTSIDE RECORDS SUMMARY | 2025-03-07 19:14 | XMS_ITS | Clinical Summary ---
Author Organization [facility] [employer] Address [address] [place] [address] Care Team Providers Care Boarder Hand Name Role Phone Unknown, Provider Primary Care Provider Unavaila ble Source Comments [facility],non-owned Affiliates and Associated Physician Practices is amultiple site organization consisting of ambulatory clinics and hospital sitesin [place], [place], [place] and [place]. This disclosure is being madepursuant to the Care Everywhere program and may not contain all information available regarding this patient. Last updated 18.[facility] [employer] [employer] 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 Gender Identity Not [...] this topic Medical Devices Explanted Type Area Compliance Examiner Device Identifier Shelf Expiration Date Model / Serial / Lot Stent Tria Sft [id number] Implanted:Qty: 1 on 03/13/2022 by Chace Dale MD at [facility] Explanted:Qty: 1 on 04/03/2022 by Chace Dale MD at [facility] Left: Ureter [employer] Scimed 12/06/2024 [id number] / / [id number] Insurance MANAGED MEDICARE FORMERLY [facility] [place]ICAID - [place] [facility] MANAGED MEDICARE ADV [place]ID - [place] [facility] MANAGED MEDICARE ADV Member Subscriber Plan / Payer (Ef fective 2024-Present) Name:Mary Grace Lau Relation to Subscriber:Self Name:Yaya Mary Grace Payer ID:[id number] (NAIC) Type:Medicare-Managed Care Address: [place] [id number] [place] - [place] Member Subscriber Plan / Payer (Ef fective for All Dates) Name:Mary Grace Lau Member ID:Not on file Relation to Subscriber:Self Name:YayaMary Grace Payer ID:Not on file Group ID:Not on file Type:Medicaid [place] Address: [place] [id number] [facility] MANAGED MEDICARE ADV Member Subscriber Plan / Payer (Ef fective 2024-Present) Name:Mary Grace Lau Relation to Subscriber:Self Name:Mary Grace Lau Payer ID:[id number] ([facility]) Type:Medicare-Managed Care Address: [address] [place]ICAID - [place] [facility] MANAGED MEDICARE ADV Member Subscriber Plan / Payer (Ef fective 2024-Present) Name:Mary Grace Lau Relation to Subscriber:Self Name:Mary Grace Lau Payer ID:[id number] (NAIC) Type:Medicare-Managed Care Address: [address] * Guarantor: MARY GRACE LAU Account [...] Group ID:Not on file Type:Medicaid [place] Address: [address] MANAGED MEDICARE ADV Member Subscriber Plan / Payer (Ef fective 2024-) Name:Mary Grace Lau Relation to Subscriber:Self Name:Mary Grace Lau Payer ID:[id number] (NAIC) Type:Medicare-Managed Care Address: [place] [phone] * Guarantor: MARY GRACE LAU Account Type [...] Group ID:Not on file Type:Medicaid [place] Address: [address] MANAGED MEDICARE ADV * Guarantor: MARY GRACE LAU Account Type Relation to Patient Date of Phone Billing Address Personal/Family [address] [place] [address] MEDICAID - [place] [employer] MANAGED MEDICARE ADV [...] 7:21 PM 12/01/2019 1:11 AM Care Teams Boarder Hand Relationship Specialty Start Date End Date Unknown, Provider PCP - General 02/28/24
--- OUTSIDE RECORDS SUMMARY | 2025-03-07 19:15 | XMS_ITS | Encounter Summary ---
Author Organization [facility] Address 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
--- OUTSIDE RECORDS SUMMARY | 2025-03-07 19:15 | XMS_ITS | Encounter Summary ---
Author Organization [facility] Address 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
--- OUTSIDE RECORDS SUMMARY | 2025-03-07 19:15 | XMS_ITS | Encounter Summary ---
Author Organization [facility] Address 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
--- OUTSIDE RECORDS SUMMARY | 2025-03-07 19:15 | XMS_ITS | Encounter Summary ---
Author Organization [facility] Address 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
--- OUTSIDE RECORDS SUMMARY | 2025-03-07 19:15 | XMS_ITS | Clinical Summary ---
Author Organization [facility] Address [facility] [place] [address] Care Team Providers Care Billing Control Clerk Name Role Phone Sahara Lee MD Primary [...] without hematuria 2023 DVT (deep venous thrombosis) ([facility]) 1 11/07/2022 Hypercoagulable state ([facility]) 09/06/2023 Osteoarthrosis 09/06/2023 Old myocardial infarction [...] vein thrombosis (DVT) of right tibial vein ([facility]) 04/17/2022 Overview (08/26/2024): Last Assessment & [...] disorder, without long-term current use of insulin ([facility]) 04/17/2022 Diabetic polyneuropathy asso ciated with type 2 diabetes mellitus ([facility]) 04/17/2022 Former smoker 04/17/2022 Overview (08/26/2024): Last Assessment & Plan: Quit 38 years ago -Not candidate for lung cancer screening - is due for abdominal aortic aneurysm screening Gastroesophageal reflux disease without esophagi tis 04/17/2022 Overview (08/26/2024): Last Assessment & Plan: Chronic, stable - omeprazole 20mg Mixed hyperlipidemia 04/17/2022 Type 2 diabetes mellitus wit h hyperglycemia ([facility]) 04/17/2022 Overview (08/26/2024): Diagnosed around 2004. [...] on file Legal Sex Male 12:31 PM BAG MENDER Gender Identity Not on file Sexual Orientation Not on file Last Filed Vital Signs Vital Sign Reading Time Taken Comments Blood Pressure 135/82 08/26/2024 9:10 AM BAG MENDER Pulse 64 08/26/2024 8:45 AM BAG MENDER Temperature 36.3 C (97.4 F) 03/20/2024 8:24 AM CDT Respiratory Rate 16 08/26/2024 8:45 AM BAG MENDER Oxygen Saturation 97% 08/26/2024 8:45 AM BAG MENDER Inhaled Oxygen Concentration - - Weight 94.8 kg (209 lb) 08/26/2024 8:45 AM BAG MENDER Height 185.4 cm (6' 1) 08/26/2024 8:45 AM BAG MENDER Body Mass Index 27.57 08/26/2024 8:45 AM BAG MENDER Plan of Treatment Upcoming Encounters Date Type Department Care Team (Late st Contact Info) Description 06/15/2025 10:40 AM CDT Office Visit [facility] - [address] [place] [address] Amadeo Armstrong MD [address] [place] [address] Health Maintenance Due Date Last Done Comments [...] 0209/2022, 02/11/2022, Additional history exists PHQ-2 (Physician [place]) 09/23/2024 Pneumococcal Vaccine: 50+ Years Completed 10/17/2016, [...] this topic Insurance MED [facility] MEDICARE [employer] MEDICAID [place]PT [place] [address] Care Teams Billing Control Clerk Relationship Specialty Start Date End Date Sahara Lee MD [address] [address] PCP - General INTERNAL MEDICINE 03/20/24
--- OUTSIDE RECORDS SUMMARY | 2025-03-07 19:15 | XMS_ITS | Encounter Summary ---
Author Organization [facility] Address 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
--- OUTSIDE RECORDS SUMMARY | 2025-03-07 19:15 | XMS_ITS | Encounter Summary ---
Author Organization [facility] Address [address] [place] [address] Care Team Providers Care Associate Manager Name Role Phone Unknown, Provider Primary Care Provider Unavaila ble Reason for Visit * Reason Onset Date Comments Med Question 06/18/2024 Encounter Details Date Type Department Care Team (Late st Contact Info) Description 06/18/2024 Telephone [facility] - Centralized Scheduling [address] [place] [address] Thao Neri MD [address] [place] [place] [address] Med Question Social History Tobacco Use Types Packs/Day Years Used Date Smoking Tobacco: Former Smokeless Tobacco: Never Alcohol Use Standard Drinks/Week Comments No 0 (1 standard drink = 0.6 oz pur e alcohol) Sex and Gender Information Value Date Recorded Sex Assigned at Not on file 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
--- OUTSIDE RECORDS SUMMARY | 2025-03-07 19:15 | XMS_ITS | Encounter Summary ---
Author Organization [facility] Address 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
--- OUTSIDE RECORDS SUMMARY | 2025-03-07 19:15 | XMS_ITS | Encounter Summary ---
Author Organization [facility] Address 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
[2025-03-07 20:21] LABS: Basophils Percent Auto 0.6 % (0.2-1.2); Eosinophils Absolute Auto 0.2 K/mm3 (0-0.3); Eosinophils Percent Auto 2.8 % (0-4.4); Hemoglobin 12.4 g/dL (14.0-18.0); Immature Granulocyte Absolute 0.03 K/mm3 (0.00-0.031); Immature Granulocyte Percent A 0.4 % (0-0.5); Lymphocytes Absolute Auto 2.03 K/mm3 (0.9-3.2); Lymphocytes Percent Auto 28.4 % (18.3-44.2); Mean Corpuscular HGB Conc 31.8 g/dl (32-36); Mean Corpuscular Hemoglobin 29.3 pg (26-34); Mean Corpuscular Volume 92.2 fl (80-100); Mean Platelet Volume 8.8 fl (7.4-10.4); Monocytes Absolute Auto 0.8 K/mm3 (0.1-0.6); Monocytes Percent Auto 11.2 % (2.6-8.5); Neutrophils Absolute Auto 4.1 K/mm3 (1.3-6.7); Neutrophils Percent Auto 56.6 % (45.5-73.1); Platelet Count Result 231 k/mm3 (150-375); Red Blood Count 4.23 M/mm3 (4.6-6.20); Red Cell Distribution Width 13.7 % (11.5-14.5); White Blood Count 7.2 K/mm3 (4.5-10.0)
[2025-03-07 20:31] LABS: Alanine Aminotransferase 32 U/L (6-50); Albumin Level 4.1 g/dL (3.5-5.1); Alkaline Phosphatase 107 U/L (38-126); Anion Gap 9 mmol/L (4-12); Aspartate Amino Transferase 35 U/L (17-59); Bilirubin,Total 0.6 mg/dL (0.2-1.3); Blood Urea Nitrogen 23 mg/dL (9-20); Calcium 9.1 mg/dL (8.4-10.2); Carbon Dioxide 26 mmol/L (22-30); Chloride 99 mmol/L (98-107); Estimated CRCL calculation 60 ml/min; Estimated Glomerular Filt Rate > 60; Glucose 167 mg/dL (65-110); Potassium 4.6 mmol/L (3.4-5.0); Sodium 134 mmol/L (137-145); Total Protein 7.7 g/dL (6.3-8.2)
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
[2025-03-07 20:37] LABS: Add Urine Microscopic? YES; Appearance Urine Cloudy (Clear); Bacteria Urine None Seen /hpf; Bilirubin Urine Negative (Negative); Blood Urine 3+ (Negative); Color Urine Orange (Yellow); Glucose Urine UA Negative (Negative); Ketones Urine Negative (Negative); Leukocyte Esterase Ur 3+ LEU/UL (Negative); Need Manual Microscopic Reviewed; Nitrate Urine Negative (Negative); Protein Urine 2+ mg/dL (Negative); RBC Urine >100 /hpf (0-2); Specific Grav Ur 1.009 (1.001-1.035); Squamous Epithelial Cell Urine None Seen /hpf (Few); Urobilinogen Urine 0.2 mg/dL (<2.0)
--- NOTE | 2025-03-07 22:34 | PC.NURSE ---
cbi changed to leg bag.
== END 2025-03-07 22:35 | disposition home or self-care (01) ==
PROVIDERS: Emergency Provider Emergency Medicine; PCP Internal Medicine
DX: R31.9 Hematuria, unspecified (principal); I25.2 Old myocardial infarction; I25.10 Atherosclerotic heart disease of native coronary artery without angina pectoris; I10 Essential (primary) hypertension; E11.40 Type 2 diabetes mellitus with diabetic neuropathy, unspecified; H26.9 Unspecified cataract; F10.21 Alcohol dependence, in remission; Z96.0 Presence of urogenital implants; Z66 Do not resuscitate; Z95.5 Presence of coronary angioplasty implant and graft; Z96.653 Presence of artificial knee joint, bilateral; Z87.442 Personal history of urinary calculi; Z87.891 Personal history of nicotine dependence; Z90.49 Acquired absence of other specified parts of digestive tract; Z79.899 Other long term (current) drug therapy; Z79.01 Long term (current) use of anticoagulants; Z79.85 Long-term (current) use of injectable non-insulin antidiabetic drugs; Z79.84 Long term (current) use of oral hypoglycemic drugs
CPT/HCPCS: 36415; 51700; 74176; 80053; 81001; 85025; 87086; 99284

== ENCOUNTER 2025-04-03 11:40 | Emergency (ER) | payer MEDICARE, OTHER, MEDICAID, SELFPAY ==
[2025-04-03] VITALS (12 sets, daily range): BP systolic 109–123; BP diastolic 55–70; PULSE 70–76; RESP 14–21; TEMP 36.4; O2SAT 95–99
--- NOTE | ~2025-04-03 | XR_ITS ---
EXAMINATION: XR elbow LT min 3V DATE: 04/03/2025 13:20 INDICATION: Left elbow injury post fall TECHNIQUE: Anteroposterior, oblique and lateral views of the left elbow were obtained. COMPARISON: None. FINDINGS: Alignment is normal. No fracture or joint effusion. Mild osteoarthritis at the left elbow. There are also small enthesophytes at the olecranon and at the medial and lateral epicondyles. Soft tissues are unremarkable. IMPRESSION: 1. Mild degenerative change at the left elbow. No joint effusion or acute osseous abnormality. Reviewed, dictated and finalized at location A. IMPRESSION: 1. Mild degenerative change at the left elbow. No joint effusion or acute osseo us abnormality.
--- NOTE | ~2025-04-03 | XR_ITS ---
EXAMINATION: XR chest 1V portable DATE: 04/03/2025 12:24 INDICATION: Syncope and fall TECHNIQUE: frontal view of the chest was obtained. COMPARISON: Chest radiograph dated 02/21/[address] dated 03/07/2025 FINDINGS: Persistent opacities in the right lower lung zone corresponding to pleural-parenchymal scarring and r ound atelectasis on intervening CT. No new airspace opacities, pulmonary edema, pleural effusion or p neumothorax. Cardiomediastinal silhouette is within normal limits for AP technique. Dual lead pacemak er seen with leads projecting over the expected locations of the right atrium and right ventricular o utflow tract. Cholecystectomy clips in right upper quadrant. There are bridging osteophytes at multip le levels consistent with diffuse idiopathic skeletal hyperostosis (DISH). IMPRESSION: 1. Unchanged opacities in the right lower lung zone consistent with chronic pleural parenchymal scarr ing and round atelectasis. Reviewed, dictated and finalized at location A. IMPRESSION: 1. Unchanged opacities in the right lower lung zone consistent with chronic ple ural parenchymal scarring and round atelectasis.
--- NOTE | ~2025-04-03 | XR_ITS ---
EXAMINATION: XR pelvis 1-2V DATE: 04/03/2025 12:24 INDICATION: Syncope and fall TECHNIQUE: An anteroposterior view of the pelvis was obtained. COMPARISON: CT dated 03/07/2025 FINDINGS: Bone alignment is normal. No fracture. 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 IMPRESSION: 1. Degenerative skeletal changes as detailed above and pagetoid changes in the right innominate bone. No acute osseous abnormality. Reviewed, dictated and finalized at location A.
--- NOTE | ~2025-04-03 | CT_ITS ---
EXAMINATION: CT cervical spine wo con DATE: 04/03/2025 12:53 INDICATION: Syncope and fall with tenderness at C6. TECHNIQUE: Computed tomography (CT) of the cervical spine was performed without intravenous contrast. Automated exposure control and iterative reconstruction technique were employed. The dose-length pro duct was 681.00 mGy-cm. COMPARISON: 03/02/2025 FINDINGS: Straightening of the normal cervical lordosis. Moderate osteoarthritis to X articulation. Vertebral b yoan heights are normal. No acute fracture. Bone island at T3. Severe disc height loss at C5-C6 and C6 -C7 with posterior endplate osteophytes resulting in mild central canal stenosis at both levels. Othe r disc height loss at C2-C3, C4-C5 and T1-T2 and mild disc height loss at C3-C4 and C7-T1. Multilevel moderate to severe cervical uncovertebral osteoarthritis. There is severe facet osteoarthritis on th e right at C7-T1 and on the left at C2-C3 through C4-C5. Mild to moderate osteoarthritis at the remai laisha cervical facet joints. There is moderate neural foraminal stenosis on the left at C3-C4 and C4-C 5 and on the right at C3-C4. Mild neural foraminal stenosis at many of the remaining cervical neural foramina. Atherosclerotic calcifications at the bilateral carotid bulbs. Cervical soft tissues are ot herwise unremarkable. Mild biapical pleural-parenchymal scarring. Cardiac pacemaker leads extend thro ugh the visualized portions of the left subclavian vein. IMPRESSION: 1. Severe lower cervical predominant spondylosis. No acute osseous abnormality. Reviewed, dictated and finalized at location A.
--- NOTE | ~2025-04-03 | CT_ITS ---
EXAMINATION: CT brain wo con DATE: 04/03/2025 12:53 INDICATION: Syncope and fall TECHNIQUE: Computed tomography (CT) of the head was performed without intravenous contrast. Sagittal and coronal reconstructions were performed. The mA was adjusted according to patient size. Iterative reconstruction technique was employed. The dose-length product was 681.00 mGy-cm. COMPARISON: head CT dated 03/02/2025 FINDINGS: No fracture. No acute intracranial hemorrhage, acute infarction or abnormal extra axial fluid collect ion. There is mild scattered white matter hypoattenuation consistent with chronic small vessel ischem ic disease. Symmetric prominence of the sulci and ventricles consistent with moderate age-appropriate diffuse cerebral volume loss. No mass/mass effect. Mild mucosal thickening the paranasal sinuses. Th e orbits and mastoid air cells are normal. IMPRESSION: 1. No fracture or acute intracranial process. 2. Age-related changes including moderate diffuse volume loss and mild calcific white matter hypoatte nuation consistent with chronic small vessel ischemic disease. Reviewed, dictated and finalized at location A. IMPRESSION: 1. No fracture or acute intracranial process. 2. Age-related changes including moderate diffuse volume loss and mild calcific white matter hypoattenuation consistent with chronic small vessel ischemic dis ease.
--- NOTE | 2025-04-03 11:46 | ECG_ITS ---
Test Date: 2025-04-03 11:49:04 Measurements Intervals [place] Rate: 70 P: 250 DC: 253 QRS: 36 QRSD: 177 T: -21 QT: 439 QTc: 474 Interpretive Statements ELECTRONIC ATRIAL PACEMAKER ELECTRONIC VENTRICULAR PACEMAKER ATYPICAL ECG Electronically Signed On 04-03-2025 12:50:03 CDT by Delmer Prince M.D.
--- OUTSIDE RECORDS SUMMARY | 2025-04-03 11:59 | XMS_ITS | Encounter Summary ---
Author Organization [facility] Address 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
--- OUTSIDE RECORDS SUMMARY | 2025-04-03 11:59 | XMS_ITS | Patient Health Record ---
Author Organization [facility] Address [address] [facility] [address] [place] [address] Care Team Providers Care Senior Account Executive Name Role Phone Alana Avilaerjit Unavailable [phone] Reason For Referral No Information Problems Problem Type SNOMED Code ICD Code Onset Dates Problem Status W/U Status Risk Notes Problem Diabetic renal disease (611103520) Type 2 diabetes mellitus with diabetic chronic kidney disease (E11.22) Active confirmed Problem Hyperlipidemia (60703433) Hyperlipidemia, unspecified (E78.5) Active confirmed Problem Essential hypertension (44997366) Essential hypertension (I10) Active confirmed Problem Chronic kidney disease stage 3 (disorder) (437916532) Stage 3 chronic kidney disease (N18.30) Active confirmed Encounters Encounter Location Date Provider Diagnosis [place] [facility] [address] [facility] [address] [place] [address] 09/09/2024 Melvin Avila Stage 3 chronic kidn [...]
--- OUTSIDE RECORDS SUMMARY | 2025-04-03 11:59 | XMS_ITS | Clinical Summary ---
Author Organization [facility] Address [address] [place] [address] Care Team Providers Care Barbed Wire Machine Operator Name Role Phone Unknown, Provider Primary Care Provider Unavaila ble Source Comments [facility],non-owned Affiliates and Associated Physician Practices is amultiple site organization consisting of ambulatory clinics and hospital sitesin [place], [place], [place] and [place]. This disclosure is being madepursuant to the Care Everywhere program and may not contain all information available regarding this patient. 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 Gender Identity Not on file Sexual Orientation [...] AWV CALENDAR YEAR 2024 09/06/2020 INFLUENZA VACCINE (#1) 2025 2, 08/18/2021, 06/23/2021, Additional history exists PNEUMOCOCCAL VACCINE [...] this topic Medical Devices Explanted Type Area Retail Event Assistant Device Identifier Shelf Expiration Date Model / Serial / Lot Stent Tria Sft 6x30 Implanted:Qty: 1 on 03/13/2022 by Chace Dale MD at [facility] Explanted:Qty: 1 on 04/03/2022 by Chace Dale MD at [facility] Left: [employer]imed 12/06/2024 [id number] / / [id number] Insurance MANAGED MEDICARE [facility] [place]ICAID - [place] [facility] MANAGED MEDICARE ADV MED[place]ID - [place] [facility] MANAGED MEDICARE ADV Member Subscriber Plan / Payer (Ef fective 2024-Present) Name:Mary Grace Lau Relation to Subscriber:Self Name:Yaya Mary Grace Payer ID:[id number] (NAIC) Type:Medicare-Managed Care Address: [place] [phone] [place]ID - [place] Member Subscriber Plan / Payer (Ef fective for All Dates) Name:Mary Grace Lau Member ID:Not on file Relation to Subscriber:Self Name:YayaMary Grace Payer ID:Not on file Group ID:Not on file Type:Medicaid [place] Address: [place] [id number] [facility] MANAGED MEDICARE ADV Member Subscriber Plan / Payer (Ef fective 2024-Present) Name:Mary Grace Lau Relation to Subscriber:Self Name:Mary Grace Lau Payer ID:[id number] ([facility]) Type:Medicare-Managed Care Address: [address] MEDICAID - [place] [facility] MANAGED MEDICARE ADV Member Subscriber Plan / Payer (Ef fective 2024-Present) Name:Mary Grace Lau Relation to Subscriber:Self Name:Mary Grace Lau Payer ID:[id number] (NAIC) Type:Medicare-Managed Care Address: [address] * Guarantor: MARY GRACE LAU Account [...] Group ID:Not on file Type:Medicaid [place] Address: [address] MANAGED MEDICARE ADV Member Subscriber Plan / Payer (Ef fective 2024-) Name:Mary Grace Lau Relation to Subscriber:Self Name:Mary Grace Lau Payer ID:[id number] (NAIC) Type:Medicare-Managed Care Address: [place] [phone] * Guarantor: MARY GRACE LAU Account Type [...] Group ID:Not on file Type:Medicaid [place] Address: [address] MANAGED MEDICARE ADV * Guarantor: MARY GRACE LAU Account Type Relation to Patient Date of Phone Billing Address Personal/Family [address] [place] [address] MEDICAID - [place] [employer] MANAGED MEDICARE ADV [...] 7:21 PM 12/01/2019 1:11 AM Care Teams Barbed Wire Machine Operator Relationship Specialty Start Date End Date Unknown, Provider PCP - General 02/28/24
--- OUTSIDE RECORDS SUMMARY | 2025-04-03 11:59 | XMS_ITS | Encounter Summary ---
Author Organization [facility] Address [address] [place] [address] Care Team Providers Care Physical Geographer Name Role Phone Abraham Cohn DO Primary Care Provider + Unknown, Provider Primary Care Provider Unavaila ble Encounter Details Date Type Department Care Team (Late st Contact Info) Description 01/05/2021 [facility] Outpatient Visit [facility] Orthopedics - Radiology [address] [place] [address] [place] [address] Document, Scanned Social History Tobacco Use Types Packs/Day Years Used Date Smoking Tobacco: Former Smokeless Tobacco: Never Alcohol Use Standard Drinks/Week Comments No 0 (1 standard drink = 0.6 oz pur e alcohol) Sex and Gender Information Value Date Recorded Sex Assigned at Not on file Legal 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
--- OUTSIDE RECORDS SUMMARY | 2025-04-03 11:59 | XMS_ITS | Encounter Summary ---
Author Organization [facility] Address 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
--- OUTSIDE RECORDS SUMMARY | 2025-04-03 11:59 | XMS_ITS | Clinical Summary ---
Author Organization [facility] Address [address] [place] [address] Phone Care Team Providers Care Lens Assistant Name Role Phone Dear, Campbell Bullard [...] hyperglycemia, without long-term current use of insulin (CMS/[facility]) INJECT 0.5ML(1.5MG) SUBCUTANEOUS EVERY 7 [...] on file Legal Sex Male 5:24 AM BLADDER TIER Gender Identity Not on file Sexual Orientation [...] EXAM 08/27/20232021, 07/09/2022, 07/09/2022, Additional history exists DIABETES HBA1C Q 6 MONTHS 06/08/20242023, 11/13/2022, 04/17/2022, Additional history exists INFLUENZA VACCINE (#1) 2025 10/17/2016, 2016 PNEUMOCOCCAL VACCINE 50+ YEARS Completed 0 10/17/2016, 10/03/2016, 10/03/2016, Additional history exists Medical Devices Implanted Type Area Mail Censor Device Identifier Shelf Expiration Date Model / Serial / Lot Knee Description:bilateral Hardware Description:head Procedures Procedure Name Priority Date/Time Associated Diagnosis Comments HEMOGLOBIN A1C Routine 12/07/2023 11:36 PM CDT MICROALBUMIN/CREATIN INE RATIO, RANDOM UR Routine 09/29/2020 1:44 PM BLADDER TIER 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 AVG GLUCOSE, A1C 171 mg/dL 12/08/2023 10:41 AM CDT [facility] [employer] [facility] Blood Venipuncture / Unknown 12/07/2023 11:36 PM CDT 12/07/2023 11:40 PM CDT Narrative [facility] - 12/08/2023 10:41 AM CDT HGB A1C INTERPRETATION NORMAL: <5.7% PRE-DIABETES: 5.7 - 6.4% DIABETES: 6.5% OR GREATER us Valdez Castro MD CHEMISTRY ORDERABLES Final Resul t [facility] [employer] [facility]# [id number] [address] [facility] [place] [address] * (ABNORMAL) MICROALBUMIN/CREATININE RATIO, RANDOM UR (09/29/2020 1:44 PM BLADDER TIER) MICROALBUMIN, URINE 2.2 No Reference Range mg/dL 09/29/2020 2:48 PM BLADDER TIER [facility] CREATININE, URINE 38.5(L) 40.0 - 278.0 mg/dL 09/29/2020 2:48 PM BLADDER TIER [facility] Comment:Reference Range vari es with fluid intake and diet. MICROALBUMIN/ CREAT RATIO, UR 57.1(H) <17.0 mg/g 09/29/2020 2:48 PM [facility] [employer] [facility] Urine URINE SPECIMEN OBTAINED BY CLEAN CATCH PROCEDURE / Unknown Collection / Unknown 09/29/2020 1:44 PM BLADDER TIER 09/29/2020 1:59 PM BLADDER TIER [facility] [employer] [facility] - 09/29/2020 2:48 PM BLADDER TIER Condition Microalbumin/Creat ratio Normal Males <17 Normal Females <25 Microalbuminuria Males 17-299 Microalbuminuria Females 25-299 Overt proteinuria >=300 Rafy Ward MD URINE ORDERABLES Final Result [facility] [employer] [facility]# [id number] [address] [facility] [facility] [place] [address] * LIPID PANEL (09/29/2020 1:44 PM BLADDER TIER) CHOLESTEROL 93 <200 mg/dL 09/29/2020 2:38 PM [facility] [employer] [facility] TRIGLYCERIDE 72 <150 mg/dL 09/29/2020 2:38 PM [facility] [employer] [facility] HDL 53 40 - 59 mg/dL 09/29/2020 2:38 PM [facility] [employer] [facility] LDL CALCULATED 26 <100 mg/dL 09/29/2020 2:38 PM [facility] NON-HDL CHOLESTEROL 40 <130 mg/dL 09/29/2020 2:38 PM [facility] Blood Venipuncture / Unknown 09/29/2020 1:44 PM BLADDER TIER 09/29/2020 1:59 PM BLADDER TIER [facility] [employer] [facility] - 09/29/2020 2:38 PM BLADDER TIER TOTAL CHOLESTEROL mg/dL Desirable <200 Borderline high [...] Ward MD CHEMISTRY ORDERABLES Final Re sult [facility]# [id number] [address] [place] [place] [address] from Last 3 Months or Most Recently Relevant to Health Maintenance Insurance RX [employer] RX Member Subscriber Plan / Payer (Ef fective 2023-Present) Name:Cosme Javier Relation to Subscriber:Self Name:Cosme Javier Payer ID:Not on file Group ID:[id number] Type:RX Medicare Part D Address: [address] [place] Advance Directives For more information, please contact: [phone] * NO CPR (In Event of Cardiopulmonary [...] 9:43 AM 07/15/2017 5:31 PM Care Teams Lens Assistant Relationship Specialty Start Date End Date Dear, Campbell Bullard DO [facility] [place] [address] PCP - General Family Practice 07/09/22
--- OUTSIDE RECORDS SUMMARY | 2025-04-03 11:59 | XMS_ITS ---
Author Organization [facility] Address [address] [facility] [address] [facility] [address] [place] [address] Care Team Providers Care Sloop Captain Name Role Phone Alana Avilaerjit Unavailable [phone] Problems Problem Type SNOMED Code ICD Code Onset Dates Problem Status W/U Status Risk Notes Problem Chronic kidney disease stage 3 (disorder) (463082285) Stage 3 chronic kidney disease (N18.30) Active confirmed Problem Diabetic renal disease (207361910) Type 2 diabetes mellitus with diabetic chronic kidney disease (E11.22) Active confirmed Problem Essential hypertension (00855130) Essential hypertension (I10) Active confirmed Problem Hyperlipidemia (24455614) Hyperlipidemia, unspecified (E78.5) Active confirmed Encounters Encounter Location Date Provider Diagnosis [facility] [address] [facility] [address] [place] [address] 09/09/2024 Melvin Avila Stage 3 chronic kidn [...] * JUDIMARY GRACEDOB: [birth year] (79 yo M)Acc No.[id number]:09/09/2024 Progress Notes Patient: MARY GRACE SINGH Provider: Belkys GARCIA MD, F.A.C.P, F.A.S.N. :1945 A ge:79 Y S ex:Male Date:09/09/2024 Address:[address] [place] [address] Subjective: * Chief Complaints: * * Medical History: Objective: * Vitals: Assessment: * Assessment: 1. S tage 3 chronic kidney disease - N18.30 (Primary) 2 . T ype 2 diabetes mellitus with diabetic chronic kidney disease - E11.22 3 . E ssential hypertension - I10 4 . H yperlipidemia, unspecified - E78.5 Plan: * Treatment: * Billing Information: * Visit Code: 97701 Office Visit, New Pt., Level 5. * Procedure Codes: * Electronic signature of Ora Avila MD on 04/03/2025 at 11:59 AM CDT Sign off status: Pending * Provider: Belkys GARCIA MD, F.A.C.P, F.A.S.N. Date: 11/10/2023 Generated for Printing/Faxing/eTransmitting on: 0 04/03/2025 11:59 AM CDT
--- OUTSIDE RECORDS SUMMARY | 2025-04-03 11:59 | XMS_ITS | Continuity of Care Document ---
Author Name [facility] Organization [facility] Care Team Providers Care Milling General Superintendent Name Role Phone [facility] Unavailable Unavailable Problems Combined list of problems from Department of Defense and Veterans Affairs facilities. It does not include entries that were removed or entered in error. Problem Status Onset Date Problem Type Date of Resolution Comments Source Acute Deep Vein Thrombosis of Lower Limb ([facility] [id number]) Active 022 Condition Jan 18, 2022 Entered By: STONE DEL CASTILLO Comment: ER visit [facility] with Dr Max Sevilla [facility] Lumbago Active 996 Condition [facility] Adjustment disorder with mixed emotional features Active Condition [facility] Allergic rhinitis Active Condition [facility] Allergic Rhinitis ([facility] [id number]) Active Condition [facility] Bacterial urinary infection Active Condition [facility] Benign essential hypertension Active Condition [facility] Benign Prostatic Hypertrophy Without Outflow Obstruction ([facility] [id number]) Active Condition [facility] CAD - Coronary artery disease Active Condition [facility] CAD - Coronary Artery Disease ([facility] [id number]) Active Condition Jul 26, 2020 Entered By: TI JOSHUA Comment: s/p MA & PCI/stent [facility] CALCANEAL SPUR Active Condition [facility] Cardiomyopathy Active Condition [facility] Cerebral artery occlusion Active Condition [facility] Cerebral infarction Active Condition [facility] Cervical Spinal Stenosis ([facility] [id number]) Active Condition [facility] Chest pain Active Condition [facility] Chronic venous insufficiency Active Condition [facility] Congestive heart failure Active Condition [facility] Coronary arteriosclerosis Active Condition [facility] Coronary arteriosclerosis Active Condition [facility] DANDRUFF Active [facility] Dementia Active Condition [facility] Depression Active Condition [facility] Depressive disorder Active Condition [facility] [place] Diabetes Mellitus Type 2 ([facility] [id number]) Active Condition [facility] Diabetes Mellitus Type II or unspecified with Neurological Manifestations Active Condition May 30, 2013 Entered By: DAMI MAGANA NN Comment: see list of NON [facility] meds (glipizide / metformin) [facility] Diabetic Neuropathies (ICD-9-CM 250.60/357.2) Active Condition Jayson DELANEY [facility] DISC DISPLACEMENT NOS Active Condition [facility] DJD Active Condition [facility] Dry Eye Syndrome Active Condition [facility] Dyslipidemia (ICD-9-CM 272.4) Active Condition [facility] Edema Active Condition [facility] Exposure to potentially hazardous substance Active Condition [facility] FACIAL NERVE DIS NEC Active Condition [facility] Finding related to compliance with treatment Active Condition [facility] Gastroenteritis Active Condition [facility] GERD - Gastro-Esophageal Reflux Disease ([facility] [id number]) Active Condition [facility] Gout Active Condition [facility] H/O: Stroke ([facility] [id number]) Active Condition [facility] HEADACHE Active Condition [facility] Health Maintenance Active Condition N 2008 Entered By: DAMI MAGANA NN Comment: on RX from LMD/doesn't know names/will bring list nxt visit [facility] HERED FRUCTOSE INTOLERAN Active Condition [facility] History of cholecystectomy Active Condition Apr 26, 2020 Entered By: STONE DEL CASTILLO Comment: patient reports done in early [facility] Plaque Active Condition [facility] Homeless single person Active Condition [facility] Hyperlipidemia Active Condition [facility] Hypertensive disorder Active Condition [facility] IDIO PERIPH NEURPTHY NEC Active Condition [facility] Insect Bite NEC (ICD-9-CM 919.4) Active Condition [facility] Kidney Stone ([facility] [id number]) Active Condition [facility] Mcfp (current) use of Anticoagulants Active Condition Aug 03, 2009 Entered By: ADMI MAGANA NN Comment: PT TAKES COUMADIN FROM IN COMM[facility]ITY [facility] Low Back Pain Active Condition [facility] Low back pain (SNOMED CT 681305013) Active Condition [facility] Marital/family problems (ICD-9-CM V61.0) Active Condition [facility] Memory loss (ICD-9-CM 780.93) Active Condition [facility] Mood Disorder due to a General Medical Condition (ICD-9-CM 293.83) Active Condition [facility] Normal grief reaction Active Condition [facility] Numbness and tingling sensation of skin Active Condition [facility] Obesity Active Condition [facility] Obesity * (ICD-9-CM 278.00) Active Condition [facility] Osteitis deformans (SNOMED CT 7950731) Active Condition [facility] Osteoarthritis (SCT 937398036) Active Condition Jul 26, 2020 Entered By: TI JOSHUA Comment: s/p B [facility] Osteoarthritis * (ICD-9-CM 715.90) Active Condition [facility] Other General Symptoms (ICD-9-CM 780.9) Active Condition Nov 18, 2001 Entered By: KAYCEE ISRAEL Comment: Episodic loss of consciousness [facility] OTHER SEBORRHEIC DERMATITIS Active Condition [facility] Overactive bladder Active Condition [facility] PAGET'S DISEASE Active Condition [facility] PROLONG POSTTRAUM STRESS Active Condition [facility] PVD * (ICD-9-CM 443.9) Active Condition [facility] Relationship distress with spouse or intimate partner Active Condition [facility] Restless legs Active Condition [facility] SKIN ANOMALY NEC Active Condition [facility] Sleep Apnea (SCT 19289670) Active Condition Jul 26, 2020 Entered By: TI JOSHUA Comment: intolerant of CPAP [facility] Spinal Stenosis of Lumbar Region (SCT 33691305) Active Condition [facility] Sprain of unspecified site of knee and leg (ICD-9-CM 844.9) Active Condition [facility] SURGERY FOLLOW-UP Active Condition [facility] Tick bite Active Condition [facility] Type II diabetes mellitus uncontrolled Active Condition [facility] Unresolved Active Condition [facility] URIN TRACT INFECTION NOS Active Condition [facility] Vascular dementia (SNOMED CT 528285035) Active Condition [facility] Vision, abnormal Active Condition [facility] Vitamin D deficiency Active Condition [facility] Xeroderma Active Condition [facility] Acute conjunctivitis (ICD-9-CM 372.00) Inactive Condition 08/03/2009 [facility] Acute sinusitis (ICD-9-CM 461.9) Inactive Condition 08/03/2009 [facility] DM Type II w/o Eye Disease Inactive Condition 08/03/2009 [facility] Gastroenteritis * (ICD-9-CM 558.9) Inactive Condition 08/03/2009 [facility] Hip: arthralgia (pain on rotation, pain in groin) * (ICD-9-CM 719.45) Inactive Condition 08/03/2009 [facility] Influenza * (ICD-9-CM 487.1) Inactive Condition 08/03/2009 [facility] Diagnosis: ICD-10-CM Z51.81 Encounter for therapeutic drug level monitoring Active Diagnosis [facility] Diagnosis: ICD-10-CM I82.409 Acute embolism and thombos unsp deep vn unsp lower extremity Active Diagnosis [facility] Diagnosis: ICD-10-CM Z13.5 Encounter for screening for eye and ear disorders Active Diagnosis [facility] Diagnosis: ICD-10-CM E11.9 Type 2 diabetes mellitus without complications Active Diagnosis [facility] Diagnosis: ICD-10-CM Z79.899 Other half-way (current) drug therapy Active Diagnosis [facility] Diagnosis: ICD-10-CM I25.10 Athscl heart disease of [place] coronary artery w/o ang pctrs Active Diagnosis [facility] Diagnosis: ICD-10-CM M25.562 Pain in left knee Active Diagnosis [facility] Diagnosis: ICD-10-CM M79.605 Pain in left leg Active Diagnosis [facility] Diagnosis: ICD-10-CM F33.40 Major depressive disorder, recurrent, in remission, unsp Active Diagnosis [facility] Medications Combined list of outpatient medications from [...] DAY FOR ANTICOAG ULATION ORAL ACTIVE 12/31/2025 [id number] 5 AMILCAR SHERWOOD S [address] [facility] N APIXABAN 5MG TAB TAKE ONE-HALF TABLET BY MOUTH TWICE A DAY FOR ANTICOAG ULATION ORAL DISCONT INUED 01/22/2025 [id number] 5 BARBARA HUNT 2024 60 [facility] APIXABAN 5MG TAB TAKE ONE-HALF TABLET BY MOUTH TWICE A DAY FOR ANTICOAG ULATION ORAL DISCONT INUED (EDIT) 12/23/2024 [id number] BARBARA HUNT 2023 90 [facility] ATORVASTATI N CA 80MG TAB TAKE ONE-HALF TABLET BY MOUTH EVERY EVENING TO LOWER CHOLESTE ROL ORAL ACTIVE 12/16/2025 [id number] CHRISTOPHER ISSA D[facility] 2024 45 [facility] DULAGLUTIDE 1.5MG/0.5ML INJ,SOLN,PE N INJECT 1.5MG/0. 5ML UNDER THE SKIN EVERY WEEK SUBCUT ANEOUS ACTIVE MARY ELLEN DEL CASTILLO 2021 [facility] DULAGLUTIDE 1.5MG/0.5ML INJ,SOLN,PE N INJECT 1.5MG (0.5ML) SUBCUTAN EOUSLY EVERY WEEK SUBCUT ANEOUS ACTIVE TARA JOSHUA 2019 [facility] EMPAGLIFLOZ IN 5MG/METFORM IN 1000MG TAB,ORAL TAKE ONE TABLET BY MOUTH TWICE A DAY ORAL ACTIVE MARY ELLEN DEL CASTILLO 2021 [facility] EMPAGLIFLOZ IN 5MG/METFORM IN 1000MG TAB,ORAL TAKE ONE TABLET BY MOUTH TWO TIMES A DAY ORAL ACTIVE TRESTARA JUMA VIDHI 2019 [facility] GABAPENTIN 300MG CAP TAKE ONE CAPSULE BY MOUTH TWICE A DAY FOR PAIN ORAL ACTIVE 12/16/2025 [id number] 5 LUIS MANUEL,NI DHI 2024 180 [facility] LISINOPRIL 5MG TAB TAKE ONE-HALF TABLET BY MOUTH ONCE A DAY FOR HEART OR BLOOD PRESSURE ORAL ACTIVE 12/16/2025 [id number] LUIS MANUEL,NI DHI 2024 45 [facility] OMEPRAZOLE 20MG CAP,EC TAKE ONE CAPSULE BY MOUTH TWICE A DAY TO LOWER STOMACH ACID. TAKE 30 MINUTES PRIOR TO FOOD. ORAL ACTIVE 12/16/2025 [id number] 5 LUIS MANUEL,NI DHI 2024 180 [facility] OMEPRAZOLE 20MG CAP,EC TAKE ONE CAPSULE BY MOUTH TWICE A DAY TO LOWER STOMACH ACID. TAKE 30 MINUTES PRIOR TO FOOD. ORAL DISCONT INUED 05/12/2025 [id number] 5 José Miguel TOURE 2023 180 [facility] OMEPRAZOLE 20MG CAP,EC TAKE ONE CAPSULE BY MOUTH TWICE A DAY TO LOWER STOMACH ACID. TAKE 30 MINUTES PRIOR TO FOOD. ORAL DISCONT INUED 05/07/2024 [id number] MARY ELLEN DEL CASTILLO 2022 180 [facility] SERTRALINE HCL 50MG TAB TAKE ONE-HALF TABLET BY MOUTH EVERY MORNING ORAL ACTIVE 12/16/2025 [id number] 5 LUIS MANUEL,NI DHI 2024 45 [facility] SERTRALINE HCL 50MG TAB TAKE ONE-HALF TABLET BY MOUTH EVERY MORNING FOR DEPRESSI ON ORAL DISCONT INUED 06/24/2025 [id number] 5 ROGER ESCALERA 2023 45 [facility] SERTRALINE HCL 50MG TAB TAKE ONE-HALF TABLET BY MOUTH EVERY MORNING FOR DEPRESSI ON ORAL DISCONT INUED 12/17/2024 [id number] ROGER ESCALERA 2023 45 [facility] TAMSULOSIN HCL 0.4MG CAP TAKE ONE CAPSULE BY MOUTH EVERY EVENING APPROXIM ATELY 30 MINUTES AFTER THE SAME MEAL EACH DAY (FOR PROSTATE ) ORAL ACTIVE 12/16/2025 [id number] CHRISTOPHER ISSA DHI 2024 90 [facility] Allergies, Adverse Reactions, Alerts Combined list of allergies from Department of Defense and Veterans Affairs facilities. It does not include entries that were removed or entered in error. Substance Category Reaction Severity Reaction type Status Date Reported Comments Source AMITRIPTYLIN E Propensity to adverse reactions to drug (finding) Physical aggression active 2 [facility] ASPIRIN Propensity to adverse reactions to drug (finding) active 5 [facility] METFORMIN Propensity to adverse reactions to drug (finding) Diarrhea active 3 [facility] MORPHINE Propensity to adverse reactions to drug (finding) Physical aggression active 2 [facility] OXCARBAZEPIN E Propensity to adverse reactions to drug (finding) Psychotic disorder active 2 [facility] PENICILLIN Propensity to adverse reactions to drug (finding) active 5 [facility] PENICILLIN Propensity to adverse reactions to drug (finding) HIVES active 3 [facility] PENICILLIN Propensity to adverse reactions to drug (finding) Urticaria active 0 [facility] TRAZODONE Propensity to adverse reactions to drug (finding) Bleeding active 2 [facility] Immunizations Combined list of available immunizations from the Department of Defense and Veterans Affairs facilities. Immunization Series Date Given Administered By Site Reaction Lot Number CVX Code Drug Social Sciences Research Scientist Status Comments Source INFLUENZA, UNSPECIFIED FORMULATION 2020 88 complet ed [facility] 15 INFLUENZA, SEASONAL, INJECTABLE, PRESERVATIVE FREE 2016 140 complet ed [facility] PNEUMOCOCCAL CONJUGATE PCV 13 2016 133 complet ed [facility] INFLUENZA, UNSPECIFIED FORMULATION 2014 88 complet ed NOVARTIS/ [id number]/ [place] A, PSYCHIATRIC PNEUMOCOCCAL CONJUGATE PCV 13 2014 133 complet ed [place] [facility], PSYCHIATRIC INFLUENZA, UNSPECIFIED FORMULATION 2013 88 complet ed as per [place] [facility] PNEUMOVAX ([facility]OR[facility]) 2013 33 complet ed [place] [facility], PSYCHIATRIC INFLUENZA, UNSPECIFIED FORMULATION 2013 88 complet ed CSL BIOTHERAP IES/[id number] [place] [facility], PSYCHIATRIC INFLUENZA, UNSPECIFIED FORMULATION 2012 88 complet ed Glaxo-Kli ne/[id number] 4 [facility] INFLUENZA (HISTORICAL) 2011 88 complet ed Novartis/ Lot# [id number] [facility] TDAP 2011 115 complet ed Sanofi Pasteur/L ot# [id number] [facility] INFLUENZA (HISTORICAL) 2011 88 complet ed [facility] NOVEL INFLUENZA-H1N 1-09, ALL FORMULATIONS 2009 128 complet ed Novartis/ Lot# [id number] [facility] INFLUENZA (HISTORICAL) 2008 NONE 88 complet ed Completed Series, Left Deltoid [place] N, [place] [facility] PNEUMOCOCCAL POLYSACCHARID E PPV23 2008 33 complet ed Right Deltoid [facility], PSYCHIATRIC INFLUENZA (HISTORICAL) 2007 88 complet ed [place] [facility], PSYCHIATRIC INFLUENZA (HISTORICAL) 2006 88 complet ed Left Deltoid [facility], PSYCHIATRIC INFLUENZA (HISTORICAL) 2005 88 complet ed Left Deltoid [facility] A, PSYCHIATRIC INFLUENZA (HISTORICAL) 2004 88 complet ed Left Deltoid [place] A, PSYCHIATRIC INFLUENZA (HISTORICAL) 2003 88 complet ed Left Deltoid [facility], PSYCHIATRIC PNEUMOCOCCAL POLYSACCHARID E PPV23 2003 33 complet ed Left Deltoid [place] A, PSYCHIATRIC INFLUENZA (HISTORICAL) 2002 88 complet ed Left Deltoid [facility]UM A, PSYCHIATRIC INFLUENZA (HISTORICAL) 2000 88 complet ed [facility] TD(ADULT) UNSPECIFIED FORMULATION 2000 139 complet ed [facility] A, PSYCHIATRIC TETANUS TOXOID, UNSPECIFIED FORMULATION 1997 KAYCEE LINDSEY X 112 complet ed [facility] Results Combined list of [...] Dec 11, 2024 04:22 PM Reporting Lab: [address] [phone] Performing Lab: [address] [address] [facility] LIPID PANEL (STL) CHOLESTEROL [MASS/VOLUM E] IN SERUM OR PLASMA 90 mg/dL 0 - 200 12/16 Specimen Type: PLASMA Comment: No hemolysis noted. Ordering Provider: LIZA ISSA Report Released Date/Time: Dec 11, 2024 04:22 PM Reporting Lab: [address] [phone] Performing Lab: [address] [phone] [facility] LIPID PANEL (STL) TRIGLYCERID E [MASS/VOLUM E] IN SERUM OR PLASMA 63 mg/dL 0 - 150 12/16 Specimen Type: PLASMA Comment: No hemolysis noted. Ordering Provider: LIZA ISSA Report Released Date/Time: Dec 11, 2024 04:22 PM Reporting Lab: [place] [address] [facility] [address] Performing Lab: [address] [phone] [facility] LIPID PANEL (STL) CHOLESTEROL IN LDL [MASS/VOLUM E] IN SERUM OR PLASMA BY CALCULATION 32 mg/dL 12/16 Specimen Type: PLASMA Comment: No hemolysis noted. Ordering Provider: LIZA ISSA Report Released Date/Time: Dec 11, 2024 04:22 PM Reporting Lab: [facility] [facility] [phone] Performing Lab: [facility] [address] [place] [phone] [facility] LIPID PANEL (STL) CHOLESTEROL IN HDL [MASS/VOLUM E] IN SERUM OR PLASMA 45 mg/dL 40 12/16 Specimen Type: PLASMA Comment: No hemolysis noted. Ordering Provider: LIZA ISSA Report Released Date/Time: Dec 11, 2024 04:22 PM Reporting Lab: [place] [address] [facility] [address] Performing Lab: [address] [address] [facility] MICRAL/CR EAT PROFILE (STL) ALBUMIN [MASS/VOLUM E] IN URINE 226.8 mg/L 12/16 Specimen Type: URINE No comment entered. Ordering Provider: LIZA ISSA Report Released Date/Time: Dec 11, 2024 04:22 PM Reporting Lab: [address] [phone] Performing Lab: [address] [address] [facility] MICRAL/CR EAT PROFILE (STL) ALBUMIN/CRE ATININE [MASS RATIO] IN URINE 422 mg/g 0 - 29 12/16 H Specimen Type: URINE No comment entered. Ordering Provider: LIZA ISSA Report Released Date/Time: Dec 11, 2024 04:22 PM Reporting Lab: [facility] [address] [place] [phone] Performing Lab: [facility] [address] [place] [phone] [facility] MICRAL/CR EAT PROFILE (STL) CREATININE [MASS/VOLUM E] IN URINE 53.7 mg/dL 63 - 166 12/16 L Specimen Type: URINE No comment entered. Ordering Provider: LIZA ISSA Report Released Date/Time: Dec 11, 2024 04:22 PM Reporting Lab: [facility] [address] [facility] [address] Performing Lab: [facility] [address] [place] [phone] [facility] COMPREHEN SIVE METABOLIC PANEL CREATININE [MASS/VOLUM E] IN SERUM OR PLASMA 0.90 mg/dL 0.7 - 1.3 12/16 Specimen Type: PLASMA Comment: No hemolysis noted. Ordering Provider: LIZA ISSA Report Released Date/Time: Dec 11, 2024 04:22 PM Reporting Lab: [facility] [address] [place] [phone] Performing Lab: [address] [address] [facility] COMPREHEN SIVE METABOLIC PANEL UREA NITROGEN [MASS/VOLUM E] IN SERUM OR PLASMA 19.8 mg/dL 9.0 - 25.0 12/16 Specimen Type: PLASMA Comment: No hemolysis noted. Ordering Provider: LIZA ISSA Report Released Date/Time: Dec 11, 2024 04:22 PM Reporting Lab: [facility] [address] [place] [phone] Performing Lab: [facility] [address] [place] [phone] [facility] COMPREHEN SIVE METABOLIC PANEL GLUCOSE [MASS/VOLUM E] IN SERUM OR PLASMA 167 mg/dL 72 - 99 12/16 H Specimen Type: PLASMA Comment: No hemolysis noted. Ordering Provider: LIZA ISSA Report Released Date/Time: Dec 11, 2024 04:22 PM Reporting Lab: [facility] [address] [place] [phone] Performing Lab: [facility] [address] [place] [phone] [facility] COMPREHEN SIVE METABOLIC PANEL SODIUM [MOLES/VOLU ME] IN SERUM OR PLASMA 139 meq/L 136 - 145 12/16 Specimen Type: PLASMA Comment: No hemolysis noted. Ordering Provider: LIZA ISSA Report Released Date/Time: Dec 11, 2024 04:22 PM Reporting Lab: [facility] [address] [place] [phone] Performing Lab: [facility] [address] [place] [phone] [facility] COMPREHEN SIVE METABOLIC PANEL POTASSIUM [MOLES/VOLU ME] IN SERUM OR PLASMA 4.0 meq/L 3.5 - 5 12/16 Specimen Type: PLASMA Comment: No hemolysis noted. Ordering Provider: LIZA ISSA Report Released Date/Time: Dec 11, 2024 04:22 PM Reporting Lab: [facility] [address] [place] [phone] Performing Lab: [facility] [address] [place] [phone] [place] [address] COMPREHEN SIVE METABOLIC PANEL CHLORIDE [MOLES/VOLU ME] IN SERUM OR PLASMA 102 meq/L 98 - 107 12/16 Specimen Type: PLASMA Comment: No hemolysis noted. Ordering Provider: LIZA ISSA Report Released Date/Time: Dec 11, 2024 04:22 PM Reporting Lab: [facility] [address] [place] [phone] Performing Lab: [facility] [address] [place] [phone] [facility] COMPREHEN SIVE METABOLIC PANEL CARBON DIOXIDE, TOTAL [MOLES/VOLU ME] IN SERUM OR PLASMA 26 meq/L 22 - 31 12/16 Specimen Type: PLASMA Comment: No hemolysis noted. Ordering Provider: LIZA ISSA Report Released Date/Time: Dec 11, 2024 04:22 PM Reporting Lab: [facility] [address] [place] [phone] Performing Lab: [facility] [address] [place] [phone] [facility] COMPREHEN SIVE METABOLIC PANEL CALCIUM [MASS/VOLUM E] IN SERUM OR PLASMA 10.0 mg/dL 8.4 - 10.4 12/16 Specimen Type: PLASMA Comment: No hemolysis noted. Ordering Provider: LIZA ISSA Report Released Date/Time: Dec 11, 2024 04:22 PM Reporting Lab: [facility] [address] [facility] [address] Performing Lab: [facility] [address] [facility] [phone] [facility] COMPREHEN SIVE METABOLIC PANEL PROTEIN [MASS/VOLUM E] IN SERUM OR PLASMA 7.9 g/dL 6 - 8.6 12/16 Specimen Type: PLASMA Comment: No hemolysis noted. Ordering Provider: LIZA ISSA Report Released Date/Time: Dec 11, 2024 04:22 PM Reporting Lab: [facility] [address] [facility] [address] Performing Lab: [facility] [address] [place] [address] [facility] COMPREHEN SIVE METABOLIC PANEL ALBUMIN [MASS/VOLUM E] IN SERUM OR PLASMA 4.2 g/dL 3.4 - 5 12/16 Specimen Type: PLASMA Comment: No hemolysis noted. Ordering Provider: LIZA ISSA Report Released Date/Time: Dec 11, 2024 04:22 PM Reporting Lab: [facility] [address] [facility] [address] Performing Lab: [facility] [address] [place] [address] [facility] COMPREHEN SIVE METABOLIC PANEL BILIRUBIN.T OTAL [MASS/VOLUM E] IN SERUM OR PLASMA 0.5 mg/dL 0.2 - 1.2 12/16 Specimen Type: PLASMA Comment: No hemolysis noted. Ordering Provider: LIZA ISSA Report Released Date/Time: Dec 11, 2024 04:22 PM Reporting Lab: [facility] [address] [facility] [address] Performing Lab: [facility] 91 [facility] [address] [facility] COMPREHEN SIVE METABOLIC PANEL ALKALINE PHOSPHATASE [ENZYMATIC ACTIVITY/VO LUME] IN SERUM OR PLASMA 133 U/L 40 - 150 12/16 Specimen Type: PLASMA Comment: No hemolysis noted. Ordering Provider: LIZA ISSA Report Released Date/Time: Dec 11, 2024 04:22 PM Reporting Lab: [facility] [address] [facility] [address] Performing Lab: [facility] [address] [facility] [address] [facility] COMPREHEN SIVE METABOLIC PANEL ASPARTATE AMINOTRANSF ERASE [ENZYMATIC ACTIVITY/VO LUME] IN SERUM OR PLASMA 27 U/L 5 - 34 12/16 Specimen Type: PLASMA Comment: No hemolysis noted. Ordering Provider: LIZA ISSA Report Released Date/Time: Dec 11, 2024 04:22 PM Reporting Lab: [facility] [address] [facility] [address] Performing Lab: [facility] [address] [facility] [address] [facility] COMPREHEN SIVE METABOLIC PANEL ALANINE AMINOTRANSF ERASE [ENZYMATIC ACTIVITY/VO LUME] IN SERUM OR PLASMA 16 U/L 8 - 40 12/16 Specimen Type: PLASMA Comment: No hemolysis noted. Ordering Provider: LIZA ISSA Report Released Date/Time: Dec 11, 2024 04:22 PM Reporting Lab: [facility] [address] [facility] [address] Performing Lab: [facility] [address] [facility] [address] [facility] COMPREHEN SIVE METABOLIC PANEL GLOMERULAR FILTRATION RATE/1.73 SQ M.PREDICTED [VOLUME RATE/AREA] IN SERUM, PLASMA OR BLOOD BY CREATININE- BASED FORMULA (CKD-EPI 2020) 86.9 60 12/16 Specimen Type: PLASMA Comment: No hemolysis noted. Ordering Provider: LIZA ISSA Report Released Date/Time: Dec 11, 2024 04:22 PM Reporting Lab: [facility] [address] [facility] [address] Performing Lab: [place] [address] [address] [facility] HGA1C HEMOGLOBIN A1C/HEMOGLO BIN.TOTAL IN BLOOD 7.1 4.0 - 6.0 08/11 H Specimen Type: BLOOD No comment entered. Ordering Provider: JEANINE CARDENAS Report Released Date/Time: Aug 11, 2024 02:09 PM Reporting Lab: [address] [address] Performing Lab: [address] [address] [facility] LIPID PANEL (STL) CHOLESTEROL [MASS/VOLUM E] IN SERUM OR PLASMA 98 mg/dL 0 - 200 08/11 Specimen Type: PLASMA Comment: No hemolysis noted. Ordering Provider: JEANINE CARDENAS Report Released Date/Time: Aug 11, 2024 02:09 PM Reporting Lab: [address] [address] Performing Lab: [address] [address] [facility] LIPID PANEL (STL) TRIGLYCERID E [MASS/VOLUM E] IN SERUM OR PLASMA 51 mg/dL 0 - 150 08/11 Specimen Type: PLASMA Comment: No hemolysis noted. Ordering Provider: JEANINE CARDENAS Report Released Date/Time: Aug 11, 2024 02:09 PM Reporting Lab: [address] [address] Performing Lab: [address] [address] [facility] LIPID PANEL (STL) CHOLESTEROL IN LDL [MASS/VOLUM E] IN SERUM OR PLASMA BY CALCULATION 43 mg/dL 08/11 Specimen Type: PLASMA Comment: No hemolysis noted. Ordering Provider: JEANINE CARDENAS Report Released Date/Time: Aug 11, 2024 02:09 PM Reporting Lab: [address] [address] Performing Lab: [address] [address] [facility] LIPID PANEL (STL) CHOLESTEROL IN HDL [MASS/VOLUM E] IN SERUM OR PLASMA 45 mg/dL 40 08/11 Specimen Type: PLASMA Comment: No hemolysis noted. Ordering Provider: JEANINE CARDENAS Report Released Date/Time: Aug 11, 2024 02:09 PM Reporting Lab: [address] [address] Performing Lab: [address] [address] [facility] VITAMIN D, 25-HYDROX Y 25-HYDROXYV ITAMIN D3 [MASS/VOLUM E] IN SERUM OR PLASMA 31.4 ng/mL 30 - 96 08/11 Specimen Type: SERUM No comment entered. Ordering Provider: JEANINE CARDENAS Report Released Date/Time: Aug 11, 2024 02:09 PM Reporting Lab: [address] [address] Performing Lab: [address] [address] [facility] B12 COBALAMIN (VITAMIN B12) [MASS/VOLUM E] IN SERUM OR PLASMA 400 pg/mL 213 - 816 08/11 Specimen Type: SERUM No comment entered. Ordering Provider: JEANINE CARDENAS Report Released Date/Time: Aug 11, 2024 02:09 PM Reporting Lab: [address] [address] Performing Lab: [address] [address] [facility] TSH (MA-PB) THYROTROPIN [UNITS/VOLU ME] IN SERUM OR PLASMA 3.281 u[IU]/ mL 0.47 - 5 08/11 Specimen Type: SERUM No comment entered. Ordering Provider: JEANINE CARDENAS Report Released Date/Time: Aug 11, 2024 02:09 PM Reporting Lab: [address] [address] Performing Lab: [address] [address] [facility] COMPREHEN SIVE METABOLIC PANEL CREATININE [MASS/VOLUM E] IN SERUM OR PLASMA 1.18 mg/dL 0.7 - 1.3 08/11 Specimen Type: PLASMA Comment: No hemolysis noted. Ordering Provider: JEANINE CARDENAS Report Released Date/Time: Aug 11, 2024 02:09 PM Reporting Lab: [place] [address] [facility] [address] Performing Lab: [facility] [address] [facility] [address] [facility] COMPREHEN SIVE METABOLIC PANEL UREA NITROGEN [MASS/VOLUM E] IN SERUM OR PLASMA 23.5 mg/dL 9.0 - 25.0 08/11 Specimen Type: PLASMA Comment: No hemolysis noted. Ordering Provider: JEANINE CARDENAS Report Released Date/Time: Aug 11, 2024 02:09 PM Reporting Lab: [place] [address] [facility] [address] Performing Lab: [facility] [address] [facility] [address] [facility] COMPREHEN SIVE METABOLIC PANEL GLUCOSE [MASS/VOLUM E] IN SERUM OR PLASMA 94 mg/dL 72 - 99 08/11 Specimen Type: PLASMA Comment: No hemolysis noted. Ordering Provider: JEANINE CARDENAS Report Released Date/Time: Aug 11, 2024 02:09 PM Reporting Lab: [facility] [address] Performing Lab: [facility] [address] [facility] [address] [facility] COMPREHEN SIVE METABOLIC PANEL SODIUM [MOLES/VOLU ME] IN SERUM OR PLASMA 139 meq/L 136 - 145 08/11 Specimen Type: PLASMA Comment: No hemolysis noted. Ordering Provider: JEANINE CARDENAS Report Released Date/Time: Aug 11, 2024 02:09 PM Reporting Lab: [facility] [address] Performing Lab: [facility] [address] [place] [address] [facility] COMPREHEN SIVE METABOLIC PANEL POTASSIUM [MOLES/VOLU ME] IN SERUM OR PLASMA 4.2 meq/L 3.5 - 5 08/11 Specimen Type: PLASMA Comment: No hemolysis noted. Ordering Provider: JEANINE CARDENAS Report Released Date/Time: Aug 11, 2024 02:09 PM Reporting Lab: [facility] [address] [facility] [address] Performing Lab: [facility] [address] [facility] [address] [facility] COMPREHEN SIVE METABOLIC PANEL CHLORIDE [MOLES/VOLU ME] IN SERUM OR PLASMA 105 meq/L 98 - 107 08/11 Specimen Type: PLASMA Comment: No hemolysis noted. Ordering Provider: JEANINE CARDENAS Report Released Date/Time: Aug 11, 2024 02:09 PM Reporting Lab: [facility] [address] [facility] [address] Performing Lab: [facility] [address] [facility] [address] [facility] COMPREHEN SIVE METABOLIC PANEL CARBON DIOXIDE, TOTAL [MOLES/VOLU ME] IN SERUM OR PLASMA 24 meq/L 22 - 31 08/11 Specimen Type: PLASMA Comment: No hemolysis noted. Ordering Provider: JEANINE CARDENAS Report Released Date/Time: Aug 11, 2024 02:09 PM Reporting Lab: [facility] [address] [facility] [address] Performing Lab: [facility] [address] [facility] [address] [facility] COMPREHEN SIVE METABOLIC PANEL CALCIUM [MASS/VOLUM E] IN SERUM OR PLASMA 9.7 mg/dL 8.4 - 10.4 08/11 Specimen Type: PLASMA Comment: No hemolysis noted. Ordering Provider: JEANINE CARDENAS Report Released Date/Time: Aug 11, 2024 02:09 PM Reporting Lab: [facility] [address] [facility] [address] Performing Lab: [facility] [address] [place] [address] [facility] COMPREHEN SIVE METABOLIC PANEL PROTEIN [MASS/VOLUM E] IN SERUM OR PLASMA 7.7 g/dL 6 - 8.6 08/11 Specimen Type: PLASMA Comment: No hemolysis noted. Ordering Provider: JEANINE CARDENAS Report Released Date/Time: Aug 11, 2024 02:09 PM Reporting Lab: [address] [address] Performing Lab: [address] [address] [facility] COMPREHEN SIVE METABOLIC PANEL ALBUMIN [MASS/VOLUM E] IN SERUM OR PLASMA 3.9 g/dL 3.4 - 5 08/11 Specimen Type: PLASMA Comment: No hemolysis noted. Ordering Provider: JEANINE CARDENAS Report Released Date/Time: Aug 11, 2024 02:09 PM Reporting Lab: [address] [address] Performing Lab: [address] [address] [facility] COMPREHEN SIVE METABOLIC PANEL BILIRUBIN.T OTAL [MASS/VOLUM E] IN SERUM OR PLASMA 0.5 mg/dL 0.2 - 1.2 08/11 Specimen Type: PLASMA Comment: No hemolysis noted. Ordering Provider: JEANINE CARDENAS Report Released Date/Time: Aug 11, 2024 02:09 PM Reporting Lab: [address] [address] Performing Lab: [address] [address] [facility] COMPREHEN SIVE METABOLIC PANEL ALKALINE PHOSPHATASE [ENZYMATIC ACTIVITY/VO LUME] IN SERUM OR PLASMA 132 U/L 40 - 150 08/11 Specimen Type: PLASMA Comment: No hemolysis noted. Ordering Provider: JEANINE CARDENAS Report Released Date/Time: Aug 11, 2024 02:09 PM Reporting Lab: [address] [address] Performing Lab: [facility] [address] [facility] [address] [facility] COMPREHEN SIVE METABOLIC PANEL ASPARTATE AMINOTRANSF ERASE [ENZYMATIC ACTIVITY/VO LUME] IN SERUM OR PLASMA 20 U/L 5 - 34 08/11 Specimen Type: PLASMA Comment: No hemolysis noted. Ordering Provider: JEANINE CARDENAS Report Released Date/Time: Aug 11, 2024 02:09 PM Reporting Lab: [facility] [address] [place] [address] Performing Lab: [facility] [address] [place] [address] [facility] COMPREHEN SIVE METABOLIC PANEL ALANINE AMINOTRANSF ERASE [ENZYMATIC ACTIVITY/VO LUME] IN SERUM OR PLASMA 17 U/L 8 - 40 08/11 Specimen Type: PLASMA Comment: No hemolysis noted. Ordering Provider: JEANINE CARDENAS Report Released Date/Time: Aug 11, 2024 02:09 PM Reporting Lab: [facility] [address] [place] [address] Performing Lab: [address] [address] [facility] COMPREHEN SIVE METABOLIC PANEL GLOMERULAR FILTRATION RATE/1.73 SQ M.PREDICTED [VOLUME RATE/AREA] IN SERUM, PLASMA OR BLOOD BY CREATININE- BASED FORMULA (CKD-EPI 2020) 63.2 60 08/11 Specimen Type: PLASMA Comment: No hemolysis noted. Ordering Provider: JEANINE CARDENAS Report Released Date/Time: Aug 11, 2024 02:09 PM Reporting Lab: [facility] [address] [place] [address] Performing Lab: [address] [address] [facility] Vital Signs Combined list of inpatient and outpatient Vital Signs from Department of Defense and Veterans Affairs, ranging from 12 months to all on record, depending upon the facility. Vital Sign Value Date Comments Source SYSTOLIC BLOOD PRESSURE 139 12/16/19 25 12:52:02 [facility] DIASTOLIC BLOOD PRESSURE 74 025 12:52:02 [facility] PULSE OXIMETRY 96 12/15/2024 12:52:02 [facility] WEIGHT 215.8 12/15/2024 12:52:02 [facility] BMI 29 kg/m2 12/15/2024 12:52:02 [facility] PAIN 0 12/15/2024 12:52:02 [facility] HEIGHT 72 12/15/2024 12:52:02 [facility] TEMPERATURE 98 12/15/2024 12:52:02 [facility] PULSE 63 12/15/2024 12:52:02 [facility] RESPIRATION 16 12/15/2024 12:52:02 [facility] SYSTOLIC BLOOD PRESSURE 135 08/11/20 13:38:00 [facility] DIASTOLIC BLOOD PRESSURE 70 024 13:38:00 [facility] PULSE OXIMETRY 97 08/11/2024 13:38:00 [facility] WEIGHT 198 08/11/2024 13:38:00 [facility] BMI 26 kg/m2 08/11/2024 13:38:00 [facility] PAIN 0 08/11/2024 13:38:00 [facility] HEIGHT 73 08/11/2024 13:38:00 [facility] TEMPERATURE 98 08/11/2024 13:38:00 [facility] PULSE 65 08/11/2024 13:38:00 [facility] RESPIRATION 16 08/11/2024 13:38:00 [facility] Encounters Combined list of: 1) Encounters from Department of Veterans Affairs facilities going backup to the last 18 months, not all VA inpatient encounters are included; 2) Encounters from the Department of Defense facilities going backup to 280 months. Location Location Details Encounter Type Encounter Number Reason For Visit Attending Provider ADM Date DC Date Status Disposition Source [facility] Outpatient Encounter [id number] 09/30 [facility] Outpatient Encounter [id number] 10/[address] [facility] Outpatient Encounter [id number] 10/20 [facility] Outpatient Encounter [id number] 11/07 [facility] Outpatient Encounter [id number] 11/12 [place] [facility] Outpatient Encounter [id number] ALBINO OSBORN E 11/13 [facility] [facility] Outpatient Encounter [id number] [place] [facility] Outpatient Encounter [id number] 12/01 [facility] [place] [facility] Outpatient Encounter [id number] JILL MARTINES 12/01 [place] [facility] Outpatient Encounter [id number] 12/08 [facility] [place] [facility] Outpatient Encounter [id number] 12/08 [place] [facility] Outpatient Encounter [id number] Gabe BOLDEN 12/12 [facility] FEE [id number] Diagnos is: ICD-10- CM F33.40 Major depress rigoberto disorde r, recurre nt, in remissi on, unsp YANELI ESCALERA JIMBO 12/16 [facility] OFFICE O/P EST LOW 20 MIN [id number] Diagnos is: ICD-10- CM F33.40 Major depress rigoberto disorde r, recurre nt, in remissi on, unsp YANELI ESCALERA JIMBO 12/16 [facility] EMERGENCY DEPT VISIT MOD MDM [id number] Diagnos is: ICD-10- CM M79.605 Pain in left leg PRECIOUS DIAL S 12/19 [facility] Outpatient Encounter [id number] PRECIOUS DIAL S 12/19 [facility] GAIT TRAINING THERAPY [id number] Diagnos is: ICD-10- CM M25.562 Pain in left knee RAMY JUDGE 12/19 [facility] MTMS BY PHARM EST 15 MIN [id number] Diagnos is: ICD-10- CM Z51.81 Encount er for therape utic drug level monitor BARBARA Hand 12/22 [facility] Outpatient Encounter [id number] 12/22 [facility] Outpatient Encounter [id number] 12/23 [facility] OFFICE O/P EST LOW 20 MIN [id number] Diagnos is: ICD-10- CM I25.10 Athscl heart disease of [place] coronar y artery w/o ang pctrs DAVID TOURE 12/31 [facility] En[facility] [id number] PATTIE MORENO 01/06 [facility] Outpatient Encounter [id number] 01/12 [facility] Outpatient Encounter [id number] 01/26 [facility] Encounter [id number] 01/26 [facility] Outpatient Encounter [id number] 01/27 [facility] [place] [facility] Outpatient Encounter [id number] KAIA SUAREZ 02/03 [place] [facility] [place] Outpatient Encounter [id number] 02/24 [place] [facility] Outpatient Encounter [id number] 02/25 [facility] Outpatient Encounter [id number] 02/26 [facility] Outpatient Encounter [id number] 02/26 [facility] [place] [facility] Outpatient Encounter [id number] GLEN PARADA 03/05 [place] [facility] Outpatient Encounter [id number] 05/11 [facility] Outpatient Encounter [id number] 07/01 [facility] Outpatient Encounter [id number] 07/15 [facility] Encounter [id number] CAIO GALVAN Urbano 07/17 [facility] Outpatient Encounter [id number] 07/20 [facility] 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 15 MIN [id number] Diagnos is: ICD-10- CM 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 ERYNELMER 07/23 [facility] Outpatient Encounter [id number] 07/27 [facility] Outpatient Encounter [id number] RONALD JOHNSON 07/28 [facility] Outpatient Encounter [id number] 08/05 [facility] Outpatient Encounter [id number] JEANINE CARDENAS 08/05 [facility] Outpatient Encounter [id number] RONALD,JEANINE D 08/09 [facility] En[facility] [id number] SIMIN LEE 08/11 [facility] Encounter [id number] RONALDJEANINE D 08/12 [facility] Encounter [id number] SIMIN LEE C 08/21 [facility] Outpatient Encounter [id number] 08/23 [facility] Outpatient Encounter [id number] DAVID TOURE 08/25 [facility] Outpatient Encounter [id number] JEANINE CARDENAS 08/25 [facility] Encounter [id number] MYA FOSTER 10/03 [facility] En[facility] [id number] 11/22 [facility] Outpatient Encounter [id number] 12/04 [facility] Outpatient Encounter [id number] SIMIN LEE C 12/07 [facility] En[facility] [id number] JEANINE CARDENAS 12/07 [facility] Outpatient Encounter [id number] 12/09 [facility] Outpatient Encounter [id number] 12/15 [facility] Outpatient Encounter [id number] 12/15 [facility] OFFICE O/P EST MOD 30 MIN [id number] Diagnos is: ICD-10- CM E11.9 Type 2 diabete s mellitu s without complic ations LUIS MANUELNID HI 12/15 [facility] Outpatient Encounter [id number] 12/15 [facility] IMG RTA DETCJ/MNTR DS STAFF [id number] Diagnos is: ICD-10- CM Z13.5 Encount er for screeni ng for eye and ear disorde rs SIMIN LEE Urbano C 12/15 [facility] IMG RTA DETC/MNTR DS PHY/QHP [id number] Diagnos is: ICD-10- CM Z13.5 Encount er for screeni ng for eye and ear disorde rs JESUSSIMIN Valdez 12/15 [facility] NQHP OL DIG ASSMT&MGMT 5-10 [id number] Diagnos is: ICD-10- CM Z51.81 Encount er for therape utic drug level monitor PAM Sin 12/28 [facility] NQHP OL DIG ASSMT&MGMT 5-10 [id number] [id number] Diagnos is: ICD-10- CM I82.409 Acute embolis m and thombos unsp deep vn unsp lower extremi ty PAM LICONA 12/30 [facility] MTMS BY PHARM EST 15 MIN [id number] Diagnos is: ICD-10- CM Z51.81 Encount er for therape [facility] drug level monitor RETA [place]a 01/07 [facility] Outpatient Encounter [id number] 03/22 [facility] [facility] Outpatient Encounter [id number] FILOMENA VALENTIN 03/25 [facility] Social History Combined list of available smoking, tobacco, and other social history from Department of Defense and Veterans Affairs facilities. Social History Type Response Date Comment Source Tobacco smoking status NHIS VA-TOBACCO FORMER USER 07/23/2024 [facility] History of tobacco use SD-TOBACCO QUIT 15 YRS OR MORE 07/23/2024 [facility] History of tobacco use VA-TOBACCO FORMER USER 04/09/2023 [facility] History of tobacco use VA-TOBACCO NEVER USED 01/10/2022 [facility] History of tobacco use VA-TOBACCO FORMER USER 09/04/2021 [facility] History of tobacco use VA-TOBACCO FORMER USER 07/26/2020 [facility] History of tobacco use SD-TOBACCO QUIT 15 YRS OR MORE 04/25/2020 [facility] History of tobacco use VA-TOBACCO NEVER USED 04/08/2019 [facility] History of tobacco use QUIT TOBACCO >7 YEARS AGO 10/17/2016 [facility] History of tobacco use V7-NO TOBACCO USE > 7 YEARS 03/21/2016 38 YEARS [facility] History of tobacco use NON-TOBACCO USER 04/05/2015 [facility] History of tobacco use V7-NO TOBACCO USE > 7 YEARS 04/05/2015 [facility] History of tobacco use V7-LIFETIME TOBACCO NON USER 07/19/2014 [facility] History of tobacco use V7-LIFETIME TOBACCO NON USER 05/30/2013 [facility] History of tobacco use V7-NO TOBACCO USE > 7 YEARS 06/03/2012 [facility] History of tobacco use V7-LIFETIME TOBACCO NON USER 05/09/2011 [facility] History of tobacco use V7-NO TOBACCO USE > 7 YEARS 06/03/2009 [facility] History of tobacco use V7-TOBACCO QUIT DATE 03/09/2008 [facility] History of tobacco use V7-HX TOBACCO USER >12 MONTHS <7 YEARS 03/09/2008 [facility] History of tobacco use V7-LIFETIME TOBACCO NON USER 01/31/2007 [facility] History of tobacco use V7-LIFETIME NON/TOBACCO USER 01/01/2006 [facility] History of tobacco use LIFETIME NON-TOBACCO USER 12/10/2002 [facility] History of tobacco use CURRENT NON-TOBACCO USER-HX OF USE 11/13/2001 [facility] History of tobacco use CURRENT NON-TOBACCO USER-RECENTLY QUIT 03/18/2001 stopped long ago [facility] History of tobacco use PREVIOUS SMOKER 12/03/2000 [facility] Plan of Care List of future care activities from [facility] facilities. Additional future care activities may be listed in the Assessment and Plan section. Date/Time Care Activity Care Activity Detail Facili ty 09/29/2025 AMBULATORY - MEDICINE AMBULATORY - MEDICI [facility] Advance Directives List of completed, amended, or rescinded Advance Directives on record at [facility] facilities. An actual copy of the Directive is not included. Date Advance Directive Provider Source 06/02/1997 ADVANCE DIRECTIVE MARILYN BARRERA [facility]
--- OUTSIDE RECORDS SUMMARY | 2025-04-03 11:59 | XMS_ITS | Clinical Summary ---
Author Organization [facility] er Address [address] [place] [address] Care Team Providers Care Python Web Developer Name Role Phone No, Physician Unavailable Dear, [...] 08/06/2022 Assessment & Plan (08/06/2022 12:13 PM RO[facility] CLOWN): Chronic, worsening - Refer to vascular surgery [...] 04/17/2022 Assessment & Plan (11/13/2022 2:04 PM RO[facility] CLOWN): Chronic, R anterior tibial (12/12); unprovoked per [...] surgery Assessment & Plan (08/06/2022 12:10 PM RO[facility] CLOWN): Chronic, R anterior tibial (12/12); unprovoked per [...] 04/17/2022 Assessment & Plan (08/06/2022 12:14 PM RO[facility]O CLOWN): Chronic Complications: CAD, HTN, Neuropathy A1c: 8.0 [...] 04/17/2022 Assessment & Plan (08/06/2022 12:20 PM RO[facility]O CLOWN): Chronic, controlled - lisinopril 2.5mg Assessment & [...] omeprazole 20mg Coronary artery disease invo lving [place] coronary artery of [place] heart without angina pectoris 04/17/2022 Assessment & [...] Encounters Date Type Department Care Team Description 03/09/2025 Orders Only [facility] Cardiology [address] [place] [address] Delmer Prince MD 03/03/2025 Telephone [facility] Cardiology [address] [place] [address] Delmer Prince MD 03/02/2025 Orders Only [facility] [place] Information Management [address] [place] [address] Delmer Prince MD from Last 3 Months [...] Comments Blood Pressure 137/63 11/20/2022 4:30 PM RO[facility] CLOWN Pulse 65 11/20/2022 4:55 PM [facility] CLOWN Temperature 36 C (96.8 F) 11/20/2022 10:41 AM [facility]OWN Respiratory Rate 18 11/20/2022 10:41 AM [facility]OWN Oxygen Saturation 100% 11/20/2022 4:55 PM [facility] CLOWN Inhaled Oxygen Concentration - - Weight 104.8 kg (231 lb) 11/20/2022 10:41 AM [facility] CLOWN Height 177.8 cm (5' 10) 11/13/2022 1:42 PM RO[facility]O CLOWN Body Mass Index 33.15 11/13/2022 1:42 PM RO[facility] CLOWN Plan of Treatment Health Maintenance Due Date [...] Procedure Name Priority Date/Time Associated Diagnosis Comments CARDIOLOGY DOCUMENT SCAN Routine 03/03/2025 3:16 PM CDT CARDIOLOGY DOCUMENT SCAN 03/02/2025 EGFR STAT 11/20/2022 3:11 PM [facility]OWN HEMOGLOBIN A1C Routine 11/13/2022 2:20 PM RODEO CLOWN 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, without long-term current use of insulin (HCC) HEPATITIS C RNA, QUANTITATIVE, PCR Routine 05/08/2022 10:08 AM CDT Need for hepatitis C screening test LIPID PANEL Routine 04/17/2022 9:43 AM CDT Coronary artery disease involving [place] coronary artery of [place] heart without angina pectoris ALBUMIN CREATININE RATIO, URINE Routine 04/17/2022 9:43 AM CDT 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, without long-term current use of insulin (HCC) OCCULT BLOOD, FECAL (FIT) Routine 11/22/2017 11:15 AM RO[facility] CLOWN from Last 3 Months or Most Recently Relevant to Health Maintenance Results * Cardiology Document Scan (03/03/2025 3:16 PM CDT) Anatomical Region Laterality Modality Other Delmer Prince MD CV [facility] DURES Final Result * Cardiology Document Scan (03/02/2025) Anatomical Region Laterality Modality Other Delmer Prince MD CV CARDIAC [facility] DURES Final Result * eGFR (11/20/2022 3:11 PM RODEO CLOWN) Pathologist [facility] eGFR 95 mL/min/1. 73 m2 [facility] Comment: Interpretive Data Reference Interval [...] last reviewed 2021. Blood 11/20/2022 3:11 PM RODEO CLOWN 11/20/2022 3:16 PM [facility]OWN Abraham Coello MD LAB BLOOD ORDERABLES Fi nal Result Performing Organization Address [facility] de Phone Number [address] [address] * (ABNORMAL) Hemoglobin A1c (11/13/2022 2:20 PM RODEO CLOWN) Pathologist [facility] Hgb A1C 8.6(H) 4.0 - 5.6 % [facility] Estimated Average Glucose 200 mg/dL [facility] Comment: The ADA recommends reporting an estimated Average Glucose (eAG) with all Hemoglobin A1c results using the equation derived from a study of 507 normal and diabetic adults. Minority populations were underrepresented and children were not included. (Diabetes Care 31:4618-2195, 2008). The eAG is not equivalent to a fasting glucose. Blood 11/13/2022 2:20 PM RODEO CLOWN 11/13/2022 2:41 PM [facility] Campbell Bullard Dear DO LAB BLOOD ORDERABLES Fin al Result Performing Organization Address [facility] Co de Phone Number [facility] [address] [place] [phone] * Hepatitis C (HCV) RNA PCR, quantitative (05/08/2022 10:08 AM CDT) HCV RNA IU/mL HCV Not Detected IU/mL [facility] - 01 HCV RNA log IU/mL CANCELED log10 IU/mL [facility] - 01 Comment: Unable to calculate result since non-numeric result obtained for component test. Result canceled by the ancillary. Test information Comment [facility] - Comment:The quantitative ran ge of this assay is 15 IU/mL to 100 million IU/mL. HCV genotype CANCELED [facility] - Comment: Not indicated Result canceled by the ancillary. Blood specimen (specimen) 05/08/2022 10:08 AM CDT 05/08/2022 Narrative [facility] - 05/10/2022 8:17 AM CDT Performed at: [address] [id number] [facility]: Jamar Cooper MD, Phone: [phone] Campbell Bullard Dear DO LAB MICROBIOLOGY - GENER AL ORDERABLES Edited Result - Final Performing Organization Address [facility] Co de Phone Number [facility] * (ABNORMAL) Albumin Creatinine Ratio, Urine (04/17/2022 9:43 AM CDT) Pathologist [facility] Creatinine ur 54.0 Not Estab. mg/dL [facility] - 01 Microalbumin, ur 35.2 Not Estab. ug/mL [facility] - 01 Microalbumin/cre at ratio 65(H) 0 - 29 mg/g creat [facility] - 01 Comment: Normal: 0 - 29 Moderately increased: 30 - 300 Severely increased: >300 Urine 04/17/2022 9:43 AM CDT 04/17/2022 Narrative [facility] - 04/18/2022 10:10 AM CDT Performed at: [address] [id number] [facility]: Thad Peacock PhD, Phone: [phone] Campbell Bullard Dear DO LAB URINE ORDERABLES Fin al Result Performing Organization Address City/[facility]/ZIP Co de Phone Number [facility] - 01 * Lipid panel [...] - 04/18/2022 7:10 AM CDT Performed at: - [address] [id number] [facility]: Thad Peacock PhD, Phone: [phone] Campbell Oswald DO LAB BLOOD ORDERABLES Fin al Result [facility] - 01 * Occult blood, fecal non neoplasm screening (11/22/2017 11:15 AM [facility]) Collection date 1, feces [id number] [facility] Collection time 1, feces 1,115 [facility] Occult blood, fecal Negative Negative [facility] Stool 11/22/2017 11:1 5 AM [facility] 11/22/2017 1:19 PM [facility]OWN Narrative [facility] - 11/22/2017 2:38 PM [facility] Hakeem Muro DO LAB BODY FLUIDS AND STOOLS ORDERABLES Final Result [facility] [address] [facility] Department [place] [address] from Last 3 Months or Most Recently Relevant to Health Maintenance Insurance [facility] MEDICARE ADVANTAGE [employer] Care Teams Python Web Developer Relationship Specialty Start Date End Date Dear, Campbell Bullard DO PCP - General Family Medicine 04/13/22 No, Physician 12/21/16
--- OUTSIDE RECORDS SUMMARY | 2025-04-03 11:59 | XMS_ITS | Encounter Summary ---
Author Organization [facility] Address [address] [place] [address] Care Team Providers Care Senior Security Engineer Name Role Phone DearCampbell DO Primary Care Provider + Encounter Details Date Type Department Care Team (Late st Contact Info) Description 10/26/[address] 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
--- OUTSIDE RECORDS SUMMARY | 2025-04-03 11:59 | XMS_ITS | Data Portability ---
Author Organization [place] [facility] [place] [employer], Main Office Address [address] [place] [address] Care Team Providers Care Pewter Finisher Name Role Phone SAHARA LEE Primary Care Provider [phone] SAHARA LEE Referring Provider LETA GUTIERRES Drawing Tracer ANA ROSA ESTRADA Neurosurgeon [phone] FIDENCIO JOSÉ Project Reservoir Engineer BETTE SOFIA Heading Pinner GABI ROBBINS Urologist Assessment Encounter Date Assessment Date Assessment LastModified by Organization Details LastModified Time 10/14/2024 10/14/2024 06/04/2024: PSA 1.17 A1C 7.4 [...] 27 Urine micro alb 338 Not available 12/29/2024 17:48:57 03/10/2025 03/10/2025 06/04/2024: PSA 1.17 A1C 7.4 Urine micro alb 306 Hep panel/GGT: WNL Gluc 138, BUN 31, Cr 1.35, GFR 51, ALP 139 H/H 11.6/36.9 09/11/2024: A1C 6.9 H/H 11.6/37.2 Gluc 132, BUN 27 Urine micro alb 338 01/01/2025: A1C 7.1 H/H 12.3/38.0 03/02/2025: Damaso ER BUN 25 H/H 11.9/37.0 I have reconciled the patient's medications post their discharge from inpatient facility. [email or web address] Not available 03/10/2025 14:47:35 Plan of Treatment Reminders Order Date Submit Date Provider Last Modified By Organization Details Last Modified Time Details Appointments Any 15 2024 10:15A M Sahara leigh MD Not available Not available Not available Lab lipid panel, serum 2024 025 [facility], [address] , [place], [address], 03/17/2025 06:10:36 CBC w/ auto diff 2024 025 [facility], [address] , [place], [address], 03/17/2025 06:10:39 TSH, serum or plasma 2024 025 [facility], [address], [place], [address], 03/17/2025 06:10:40 CMP, serum or plasma 2024 025 [facility], [address] , [place], [address], 03/17/2025 06:10:37 glycohemo globin, total, blood 2024 025 [facility], [address] , [place], [address], 03/10/2025 14:59:02 microalbu min, urine 2024 025 [facility], [address], [place], [address], 03/17/2025 06:10:38 glycohemo globin, total, blood 2024 025 [facility], [address], [place], [address], 12/29/2024 17:56:33 microalbu min, urine 2024 025 [facility], [address], [place], [address], 12/29/2024 17:56:33 lipid panel, serum 2024 025 [facility], [address], [place], [address], 12/29/2024 17:56:31 CBC w/ auto diff 2024 025 [facility], [address], [place], [address], 12/29/2024 17:56:31 TSH, serum or plasma 2024 025 [facility], [address], [place], [address], 12/29/2024 17:56:34 CMP, serum or plasma 2024 025 VID[facility], [address], [place], [address], 12/29/2024 17:56:32 glycohemo globin, total, blood 2024 025 [facility], [address], [place], [address], 10/14/2024 15:03:11 microalbu min, urine 2024 025 [facility], [address], [place], [address], 01/02/2025 08:03:52 lipid panel, serum 2024 025 [facility], [address], [place], [address], 01/02/2025 08:03:50 CBC w/ auto diff 2024 025 [facility], [address], [place], [address], 01/02/2025 08:03:54 TSH, serum or plasma 2024 025 [facility], [address], [place], [address], 01/02/2025 08:03:55 CMP, serum or plasma 2024 025 [facility] [facility], [address], [place], [address], 01/02/2025 08:03:51 Referral rheumatol ogist referral - Please call patient to schedule an appointme nt. Thank you. 2024 025 ERYN [facility] (Rheumatology ), [address], [place], [address], 03/17/2025 10:12:57 urologist referral - Please call patient to schedule an appointme nt. Thank you. 2024 025 ERYN Freeman MD, [address], [address], [place], [address], 03/17/2025 09:43:14 nephrolog ist referral - Please call patient to schedule an appointme nt. Thank you. 2024 025 ERYN Avila MD (Nephrology, [address], [address], [place], [address], 03/17/2025 10:29:55 podiatris t referral - Please call patient to schedule an appointme nt. Thank you. 2024 025 VIDHI José DPM, [address], [address], [place], [address], 03/15/2025 09:54:35 cardiolog ist referral - Pleas call patient to schedule an appointme nt. Thank you. 2024 025 ERYN Sofia MD, [address], [address], [place], [address], 03/17/2025 10:24:02 rheumatol ogist referral - Please call patient to schedule an appointme nt. Thank you. 2024 025 ERYN [facility] (Rheumatology ), [address], [place], [address], 01/04/2025 11:05:20 urologist referral - Please call patient to schedule an appointme nt. Thank you. 2024 025 ERYN Freeman MD, [address], [address], [place], [address], 01/04/2025 11:10:35 nephrolog ist referral - Please call patient to schedule an appointme nt. Thank you. 2024 025 ERYN Avila MD (Nephrology, [address], [address], [place], [address], 01/04/2025 11:10:35 podiatris t referral - Please call patient to schedule an appointme nt. Thank you. 2024 025 velia José DPM, [address], [address], [place], [address], 03/30/2025 09:12:58 nephrolog ist referral - Please call patient to schedule. 2024 025 [email or web address] Melvin Avila MD (Nephrology, [address], [address], [place], [address], 10/15/2024 17:38:21 podiatris t referral 2024 025 Fidencio José DPM, [address], [place], [address], 10/15/2024 17:38:12 Procedures None recorded. Surgeries None recorded. Imaging US, liver - Please call patient to schedule. 2024 025 [email or web address] [facility], [address], [place], [address], 10/14/2024 15:39:31 Medication Orders metoprolo l tartrate 25 mg tablet 2024 025 [facility]/Pharmacy #[id number], [address], [place], [address], 03/10/2025 14:57:56 magnesium oxide 400 mg (241.3 mg magnesium ) tablet 2024 025 [facility] #[id number], [address], [place], [address], 03/10/2025 14:57:59 Patient TargetsNo targets recorded. Patient Instructions Encounter Date Encounter Id Patient Instructions Last Modified By Organization Details Last Modified Time 09/02/2024 [id number] 1. We changed hi s catheter today he will come back once a month for another catheter change Not available 09/02/2024 12:29:32 10/02/2024 [id number] continue with suprapubic tube change once a month Not available 10/02/2024 13:50:10 03/10/2025 [id number] Thank you for your visit to our office today. We would like to request that you reach out to your referring or previous provider and request that they send us a Summary of Care in electronic form, so that we may have it on file in your medical record. At your visit, we had the medical records we needed to provide you with the best possible care; however, for insurance purposes, an electronic Summary of Care is beneficial. Thank you for your assistance in obtaining this information and we look forward to providing continued care to you. Please review your medication list from the Summary of Care for this visit. If there are any differences from what you are currently taking at home, please call us to discuss. [email or web address] Not available 03/10/2025 14:29:36 Homebound Status : Required Home Health Services: Durable Medical Equipment needed: Billing Guidelines CPT code 48321- Transitional Care Management services with moderate medical decision complexity (aejm-aw-wvsv visit within 14 days of discharge). CPT code 54207- Transitional Care Management services with high medical decision complexity (qnvb-yv-wxgc visit within 7 days of discharge). [email or web address] Not available 03/10/2025 14:29:36 Reason for Referral Physician Coder Referral for Pr oteinuria Please call patient to schedule. Referring Physician: Sahara Lee Internal Medicine, Encounter Date: 10/14/2024 Project Reservoir Engineer Referral for Type 2 diabetes mellitus without complication Referring Physician: Sahara Lee Internal Medicine, Encounter Date: 10/14/2024 Physician Coder Referral for Pr oteinuria Please call patient to schedule an appointment. Thank you. Referring Physician: Sara Mauricio Medicine, Encounter Date: 12/29/2024 Project Reservoir Engineer Referral for Type 2 diabetes mellitus without complication Please call patient to schedule an appointment. Thank you. Referring Physician: Sahara Lee Internal Medicine, Encounter Date: 12/29/2024 Urologist Referral for Cysti tis Please call patient to schedule an appointment. Thank you. Referring Physician: Sara Mauricio Medicine, Encounter Date: 12/29/2024 Nursing Home Assistant Referral for Paget's disease of pelvis Please call patient to schedule an appointment. Thank you. Referring Physician: Sara Mauricio Medicine, Encounter Date: 12/29/2024 Physician Coder Referral for Pr oteinuria Please call patient to schedule an appointment. Thank you. Referring Physician: Sahara Lee, Internal Medicine, Encounter Date: 03/10/2025 Project Reservoir Engineer Referral for Type 2 diabetes mellitus without complication Please call patient to schedule an appointment. Thank you. Referring Physician: Sahara Lee, Internal Medicine, Encounter Date: 03/10/2025 Urologist Referral for Cysti tis Please call patient to schedule an appointment. Thank you. Referring Physician: Sahara Lee, Internal Medicine, Encounter Date: 03/10/2025 Nursing Home Assistant Referral for Paget's disease of pelvis Please call patient to schedule an appointment. Thank you. Referring Physician: Sahara Lee Internal Medicine, Encounter Date: 03/10/2025 Heading Pinner Referral for Co ronary arteriosclerosis Pleas call patient to schedule an appointment. Thank you. Referring Physician: Sahara Lee, Internal Medicine, Encounter Date: 03/10/2025 Results Created Date Observation Date Name Description Value Unit Range Abnormal Flag Note LastModifiedBy Organization Detail LastModifiedTime 08/25/20 24 08/25/2024 imagi ng/di agnos tic resul t No observ ation record ed. [address], [place], [address], 08/25/2024 07:02:06 11/03/19 25 11/03/2024 imagi ng/di agnos tic resul t No observ ation record ed. [facility] [address], [place], [address], 11/03/2024 13:09:37 03/02/20 25 03/02/2025 imagi ng/di agnos tic resul t No observ ation record ed. [place] [id number], [place], [address], 03/02/2025 14:58:10 03/02/20 25 03/02/2025 imagi ng/di agnos tic resul t No observ ation record ed. [address], [place], [address], 03/02/2025 17:32:55 03/02/20 25 03/02/2025 imagi ng/di agnos tic resul t No observ ation record ed. [address], [place], [address], 03/02/2025 17:39:19 03/03/20 25 03/03/2025 imagi ng/di agnos tic resul t No observ ation record ed. [address], [place], [address], 03/03/2025 07:53:32 03/03/20 25 03/03/2025 imagi ng/di agnos tic resul t No observ ation record ed. [address] [facility], [place], [address], 03/03/2025 07:54:26 03/03/20 25 03/03/2025 imagi ng/di agnos tic resul t No observ ation record ed. [address], [place], [address], 03/03/2025 17:22:17 03/04/20 25 03/04/2025 imagi ng/di agnos tic resul t No observ ation record ed. [address], [place], [address], 03/04/2025 18:39:48 03/07/20 25 03/07/2025 imagi ng/di agnos tic resul t No observ ation record ed. [address], [place], [address], 03/07/2025 22:20:31 Result Notes None recorded. Problems Name Problem SNOMED Code Status Onset Date Resolution Date Notes Provider Name and Address Organization Details Recorded Time Diabetes mellitus 32786505 Active 2022 Not Available [employer] 4 05:59:13 Hyperlipid emia 22161294 Active 2022 Not Available [employer] 4 05:59:13 Essential hypertensi on 59199228 Active 2022 Not Available [employer] 4 05:59:13 Type 2 diabetes mellitus without complicati on 236885855 Active 2022 Not Available [employer] 4 05:59:13 Urinary incontinen ce 141432171 Active 2022 Not Available [employer] 4 05:59:13 Gastroesop hageal reflux disease without esophagiti s 479306271 Active 2022 Not Available [employer] 4 05:59:13 Moderate recurrent major depression 25460829 Active 2022 Not Available [employer] 4 05:59:13 Coronary arterioscl erosis 06268171 Active 2022 Not Available [employer] 4 05:59:13 Liver function tests outside reference range 316106637 Active 2022 Not Available [facility] 4 05:59:13 Microalbum inuria 543191523 Active 2022 Not Available [employer] 4 05:59:13 Osteoarthr itis of hip 241000010 Active 2023 Not Available [employer] 4 05:59:13 Pain of right hip joint 6663202864422 02 Active 2023 Lilia Shannon, LUCI L priya, [place] [employer] 4 11:07:46 Low back pain 612103338 Active 2023 Not Available [facility] 4 05:59:13 Neuropathy 126965950 Active 2023 ROGER Cardenas, [place] - [facility] [employer] [facility] 4 10:11:21 Chronic low back pain 829141138 Active 2023 Indigo Sandoval MA null, [place] [facility] 4 11:34:38 Pain of left hip joint 4680367199242 00 Active 2023 Yecenia Cummings [facility] null, [place] [facility] 4 10:20:52 Blood in urine 04620253 Active 2023 Indigo Sandoval MA null, [place] [facility] 4 12:47:55 Cystitis 83034540 Active 2023 Sahara guzman MD [address], [address], [place], [address] , [facility] 4 16:14:14 Steatotic liver disease 331297993 Active 2023 Sahara guzman MD [address], [address], [place], [address] , [facility] [facility] 4 09:40:39 Paget's disease-[facility] 079703284 Active 2023 Indigo Sandoval MA null, [place] [facility] 4 16:11:38 Syncope 120097638 Active 2023 Sahara guzman MD [address], [address], [place], [address] , [facility] 4 13:34:49 Anemia 230084390 Active 2023 Sahara guzman MD [address], [address], [place], [address] , [facility] 4 10:06:31 Peripheral neuropathy due to type 2 diabetes mellitus 1034006616505 Active 2023 Myron Guido DPM [address], [place], [address] , [facility] 4 08:48:27 Onychomyco sis of toenails 277240460 Active 2023 Myron Guido DPM [address] [facility], [place], [address] , [employer] [facility] 4 08:48:34 Chronic retention of urine 166335129 Active 2023 Gabi Robbins MD [address], [place], [address] , [employer] [facility] [employer] [facility] 4 16:20:24 Proteinuri a 21076759 Active 2023 Sahara guzman MD [address], [place], [address] , [employer] [facility] [employer] 4 12:09:03 Paget's disease of pelvis 539759817 Active 2024 Sahara guzman MD [address] [address], [place], [address] , [employer] [facility] [employer] 5 17:54:58 Osteitis deformans 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 Please review these documents and add these problems to the patient's chart manually as needed. Problem Notes None recorded. Procedures Surgical History Date Name Laterality Status Provider Name and Address Organization Details Recorded Time 03/10/20 25 Transitional_Care_M anagement completed Sahara Lee MD [address], [place], [address], [facility] [employer] [facility] [employer] [facility] 03/10/2025 15:11:27 09/23/19 25 Pacemaker completed SARAH Hadley [facility] [employer] [facility] 10/14/2024 14:42:19 09/02/20 24 Cath Change completed Roseanne Cruz CMA [place] [facility] 09/02/2024 12:25:10 07/17/20 24 Nail Debridement completed Myron Guido DPM [address], [place], [address], [facility] 07/20/2024 08:48:20 07/14/20 24 Transitional_Care_M anagement completed Sahara Lee MD [address], [place], [address], [facility] 07/14/2024 10:59:07 07/01/20 Colonoscopy completed Yin [place] Carmenza [place] [facility] 07/14/2024 09:56:57 12/26/19 Medicare Wellness CPT Code, subsequent completed Camryn Rowan [place] [facility] 12/24/2023 13:07:44 Tonsillectomy completed Yin Westfall [facility] 08/27/2023 14:48:35 Cholecystectomy completed Yin Westfall [facility] 08/27/2023 14:48:41 total knee replacement completed Yin [place] Carmenza [place] [facility] 08/27/2023 14:49:12 Orthopedic Surgery completed Yin Westfall [facility] 08/27/2023 14:49:39 Bladder completed Yin [place] Carmenza [place] [facility] 12/29/2024 17:22:13 Imaging Results None recorded. Procedure Notes None recorded. Medical Equipment None Reported. Allergies Allergen ID Allergen Name Allergen Category Reaction Reaction Severity Criticality Documentation Date Start Date Code Code System Note Provider Name and Address Organization Details Recorded Time 36878 morphine medicatio n Not available Not available Not available 06/04/2024 7052 RxNoROGER Aviles, [place] [facility] 09:55:19 88606 aspirin medicatio n Not available Not available Not available 06/04/2024 1191 RxROGER Jackson, [facility] 4 09:55:37 81761 amitripty line medicatio n Not available Not available Not available 06/04/2024 704 RxROGER Jackson, [facility] 4 09:55:45 Medications Name Sig [...] completed Not Available Not Available Not Available amiodarone 200 mg tablet TAKE 1 TABLET BY MOUTH TWICE A DAY active Not Available Not Available No t Available hydrocodone 5 mg-acetamin ophen 325 mg [...] completed Not Available Not Available Not Available magnesium oxide 400 mg (241.3 mg magnesium) tablet TAKE 1 TABLET BY MOUTH TWICE A DAY active Not Available Not Available No t Available methocarbam ol 750 mg tablet TAKE [...] Available Not Available cephalexin 500 mg capsule TAKE 1 CAPSULE BY MOUTH EVERY 8 HOURS FOR 7 DAYS active Not Available Not Available No t Available ferrous sulfate 325 mg (65 mg [...] 1 CAPSULE BY MOUTH EVERY 12 HOURS active Not Available Not Available No t Available metformin ER 500 mg tablet,exte nded [...] completed Not Available Not Available Not Available metoprolol tartrate 25 mg tablet TAKE 1 TABLET BY MOUTH TWICE A DAY active Not Available Not Available No t Available nitrofurant oin monohydrate /macrocryst als 100 [...] cm Roseanne Cruz CMA [place] [employer] [facility] 10/02/2024 11:08:37 Date Recorded Body height Body mass index (BMI) Body weight Body temperature Heart rate Systolic And Diastolic Provider Name and Address Organization Details Last Updated DateTime 185.42 cm 27.2 kg/m2 38623.0 3 g 97.9 [degF] 78 /min 120/60 mm[Hg] ASRAH Hadley [employer] 5 14:48:27 Date Recorded Body height Body mass index (BMI) Body weight Body temperature Heart rate Systolic And Diastolic Provider Name and Address Organization Details Last Updated DateTime 5 185.42 cm 29 kg/m2 74567.3 2 g 97.2 [degF] 78 /min 136/62 mm[Hg] SARAH Hadley [employer] [facility] [employer] 5 17:24:18 Date Recorded Body height Body mass index (BMI) Body weight Body temperature Heart rate Oxygen saturation Oxygen saturation in Arterial blood by Pulse oximetry Systolic And Diastolic Provider Name and Address Organization Details Last Updated DateTime 5 185.42 cm 28.2 kg/m2 06519.7 7 g 98.3 [degF] 70 /min 97 % 97 % 138/68 mm[Hg] Savannah Gibson MA [facility] [employer] 5 14:36:10 Date Recorded Body height Heart rate Body temperature Body mass index (BMI) Body weight Oxygen saturation Oxygen saturation in Arterial blood by Pulse oximetry Systolic And Diastolic Provider Name and Address Organization Details Last Updated DateTime 4 185.42 cm 80 /min 97 [degF] 27.7 kg/m2 74774.4 g 94 % 94 % 147/65 mm[Hg] Roseanne Cruz CMA [employer] [facility] [employer] 4 10:39:12 Social History Question Answer Notes LastModified by Organization Details LastModified Time Tobacco Smoking Status Former Smoker quit age 41 SARAH Hadley priya, [employer] [facility] [employer] 10/14/2024 14:44:47 Do You Have An Advance Directive? Yes Information not available 08/27/2023 Are You Blind Or Do You Have Difficulty Seeing? No Information not available 08/27/2023 What Is Your Level Of Caffeine Consumption? Moderate Information not available 08/27/2023 In The 14 Days Before Symptom Onset, Have You Had Close Contact With A Laboratory-conf [email or web address] NADEGE-Gwyn While That Case Was Ill? No Information [...] Or The Highest Degree You Have Received? [id number] Information not available 08/27/2023 Have There Been Any Changes To Your Family Or Social Situation? No Information not available 03/10/2025 What Is The Fluoride Status Of Your [...] You Able To Care For Yourself? Yes [email or web address] Information not available 12/26/2023 Are You Blind Or Do Yo Have Difficulty Seeing? No [email or web address] Information not available 12/26/2023 Are You Deaf Or Do You Have Serious Difficulty Hearing? Yes [email or web address] Information not available 12/26/2023 Live Alone Of With Others? With Others [email or web address] Information not available 12/26/2023 Do You Have A Medical Power Of Medical Voucher Clerk? Yes Information not available 08/27/2023 What Was The Date Of Your Most Recent Tobacco Screening? 03/10/2025 Information not available 03/10/2025 Do You Have Any Pets? Yes Information [...] anxious, or unable to sleep at night)? [id number] Information not available 08/27/2023 Do you have difficulty concentrating, remembering or making decisions? Yes Information no t available 08/27/2023 Family History Relationship Description Onset Age of this Age Resolved Age Notes LastModified by Organization Details LastModified Time Son Aortic valve stenosis 10 [email or web address] Not available 09/02 10:03:12 Sister Diabetes mellitus Not available 2022 14:42:08 Mother Myocardial infarction Not available 08/27 14:42:20 Mother Heart disease [email or web address] Not available 02/2024 11:06:02 Father Leukemia [email or web address] Not availab le 09/02/2024 10:03:12 Brother Diabetes [...] N CHRONIC PAIN SYNDROME N HYPOTHYROIDISM N CAROTID BLOCKAGE N CONSTIPATION N BACK / NECK PROBLEMS N ATHEROSCLEROSIS [...] SNOMED-CT Code Diagnosis ICD10 Code Diagnosis Note [id number] Sahara guzman MD [facility] Internal [facility] 15 20[address] [facility] 15 [place] [address] 08/27/2023 14:08:20 08/27/2023 15:23:27 Screening - NAD [id number] Z13.9 C-scope: Get this done Get yearly flu shotGet tdap if not doneGet COVID 19 vaccineGet PCV #20Get Shingrix and RSV vaccinesHe has declined all his vaccines 08/27/2023 RTC in 4 months, do labs, ER if worse, he and his son verbalized his understand ing of the above Essential hypertension 90659653 I10 On lisinopril 2.5mg dailyGet labsGet a referral to cardiology Hyperlipidemia 69217413 E78.5 On ASAOn atorvastat in 80mg 1/2 tab dailyGet labs 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 327640747 E11.9 On synjardy XR 5-500mg bidOn trulicity 1.5mg weeklyGet labs Urinary incontinence 165 021433 R32 On flomaxOn myrbetriq Screening for malignant neoplasm of colon 873242077 Z12.11 Screening for malignant neoplasm of prostate 199392758 Z12.5 Ex-cigarette smoker 2810 25153 Z87.891 Get US AAA Gastroesop hageal reflux disease without esophagitis 161989948 K21.9 On omeprazole 20mg daily, take PRN, get EGD Moderate r ecurrent major depression 12116554 F33.1 States that he did use to have [facility] used to be on medication s, but has not taken these, used to see psychiatry in the past, declines any meds or referrals, states that he is doing very well, not suicidal or homicidal Coronary arteriosclerosis 32417714 I25.10 On eliquisSho uld NOT be on coumadinNe eds to see cardiology [id number] Mode Jerez MD [facility] [place] [address] [place] [address] 10/29/2023 10:34:14 10/29/2023 11:28:20 Pain of right hip joint 2900588717 35535 M25.551 Low back pain 746780071 M54.50 [id number] Mode Jerez MD [facility] [place] [address] [place] [address] 11/26/2023 10:10:38 11/26/2023 11:16:18 Pain of left hip joint 9339656439 87996 M25.552 Low back pain 786726512 M54.50 [id number] Sahara guzman MD [facility] [place] [address] [facility], [place] [address] [place] [address] 12/26/2023 17:21:50 12/26/2023 18:05:09 Screening - NAD 664641931 Z13.9 C-scope: Get this done Get yearly flu shotGet tdap if not doneGet COVID 19 vaccineGet PCV #20Get Shingrix and RSV vaccinesHe has declined all his vaccines 08/27/2023 RTC in 4 months, do labs, ER if worse, he verbalized his understand ing of the above Essential hypertension 97580698 I10 On lisinopril 2.5mg dailyGet labsGet a referral to cardiology Hyperlipidemia 79979581 E78.5 On ASAOn atorvastat in 80mg 1/2 tab dailyGet labs 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 268022720 E11.9 On metformin ER 500mg bidOn synjardy XR 5-500mg bid, d/c this as he is already on metforminO n trulicity 1.5mg weeklyGet labs Urinary incontinence 165 447328 R32 On flomaxOn myrbetriq Screening for malignant neoplasm of colon 507314256 Z12.11 Ex-cigarette smoker 2810 12080 Z87.891 AAA: 10/14/2023 : Neg Gastroesop hageal reflux disease without esophagitis 273290029 K21.9 On omeprazole 20mg daily, take PRN, get EGD Moderate r ecurrent major depression 22572517 F33.1 States that he did use to have PTSD, [facility], used to be on medication s, but has not taken these, used to see psychiatry in the past, declines any meds or referrals, states that he is doing very well, not suicidal or homicidal Coronary arteriosclerosis 18942851 I25.10 On eliquisSho uld NOT be on coumadinNe eds to see cardiology Cystitis 08321021 N30.90 S/p ER 12/05/2023 , s/p CT A/P 12/05/2023 Referred to urology Pain of le ft hip joint 4026329716 20411 M25.552 [facility] 11/26/2023 Dr Jerez/Magy 11/26/2023 , treated with PT Low back pain 520021840 M54.50 Addnedum 11/26/2023 See case on 11/14/2023 , tramadol sent On methocarbo mol, see [facility] note, should stop thisAlso stop any NSAIDs Referred to Dr Payne ortho spine surgeonAls o to see Dr Jerez on 01/01/2024 Adult heal th examination 750076912 Z00.00 Screening for disorder 190792480 Z13.9 [id number] Sahara guzman MD [facility] [address] 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 600887686 E11.9 On metformin ER 500mg bidOn synjardy XR 5-500mg bid, d/c this as he is already on metforminO n trulicity 1.5mg weeklyGet labs Urinary incontinence 165 213825 R32 On flomaxOn myrbetriq 12/05/2023 : [facility] ER s/p fall hematuria, CT A/P CT A/P 01/29/2024 d/t hematuria from recent cystoscopy [facility] 03/29/2024 :CT A/P: 03/29/2024 : L hydronephr osis Bladder Bx: 04/10/2024 : Dr Freeman Screening for malignant neoplasm of colon 202052652 Z12.11 Ex-cigarette smoker 2810 86245 Z87.891 AAA: 10/14/2023 : Neg Gastroesop hageal reflux disease without esophagitis 861939114 K21.9 On omeprazole 20mg daily, take PRN, get EGD Moderate r ecurrent major depression 42183691 F33.1 States that he did use to have [facility], [facility], used to be on medication s, but has not taken these, used to see psychiatry in the past, declines any meds or referrals, states that he is doing very well, not suicidal or homicidal Coronary arteriosclerosis 39724301 I25.10 On eliquisSho uld NOT be on coumadinNe eds to see cardiology Cystitis 48312736 N30.90 S/p ER 12/05/2023 , s/p CT A/P 12/05/[address] A/P 01/29/2024 d/t hematuria from recent cystoscopy [facility] 03/29/2024 :CT A/P: 03/29/2024 : L hydronephr osis Bladder Bx: 04/10/2024 : Dr Freeman Pain of le ft hip joint 4518036436 55912 M25.552 [facility] 11/26/2023 Dr Jerez/Magy 11/26/2023 , treated with PT Low back pain 474924762 M54.50 Addnedum 11/26/2023 See case on 11/14/2023 , tramadol sent On methocarbo mol, see [facility] note, should stop thisAlso stop any NSAIDs Referred to Dr Payne ortho spine surgeonAls o to see Dr Jerez on 01/01/2024 MRI T/C spine 05/01/2024 Steatotic liver disease 648303295 K76.0 12/05/2023 : CT A/PUS liver 10/14/2023 Get labs Screening for malignant neoplasm of prostate 183716922 Z12.5 [id number] Sahara guzman MD [facility] [place] [address] [facility] [place] [address] [place] [address] 07/14/2024 09:47:47 07/14/2024 10:40:52 Screening - NAD 875022006 Z13.9 C-scope: Get this done Get yearly flu shot, declined 07/14/2024 Get tdap if not doneGet COVID 19 vaccineGet PCV #20Get Shingrix and RSV vaccinesHe has declined all his vaccines 08/27/2023 , 07/14/2024 RTC in 4 months, do labs, ER if worse, he and his son did verbalize his understand ing of the above Essential hypertension 65578939 I10 On lisinopril 2.5mg daily, do not take till seen by cardiology d/t recent hospitaliz ation for syncope, d/c 07/08/2024 Get labsGet a referral to cardiology Hyperlipidemia 27281379 E78.5 On ASAOn atorvastat in 80mg 1/2 tab dailyGet labs 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 576286666 E11.9 On metformin ER 500mg bidOn synjardy XR 5-500mg bid, d/c this as he is already on metforminO n trulicity 1.5mg weeklyGet labs Urinary incontinence 165 049966 R32 On flomaxOn myrbetriq 12/05/2023 : [facility] ER s/p fall hematuria, CT A/P CT A/P 01/29/2024 d/t hematuria from recent cystoscopy [facility] 03/29/2024 :CT A/P: 03/29/2024 : L hydronephr osis Bladder Bx: 04/10/2024 : Dr Freeman Screening for malignant neoplasm of colon 125489078 Z12.11 Ex-cigarette smoker 2810 82104 Z87.891 US AAA: 10/14/2023 : Neg Gastroesop hageal reflux disease without esophagitis 916020755 K21.9 On omeprazole 20mg daily, take PRN, get EGD Moderate r ecurrent major depression 14376292 F33.1 States that he did use to have PTSD, [facility], used to be on medication s, but has not taken these, used to see psychiatry in the past, declines any meds or referrals, states that he is doing very well, not suicidal or homicidal Coronary arteriosclerosis 48541859 I25.10 On eliquis, restarted on at D/c from [facility] on 07/08/2024 Should NOT be on coumadinNe eds to see cardiology Cystitis 22631376 N30.90 S/p ER 12/05/2023 , s/p CT A/P 12/05/[address] A/P 01/29/2024 d/t hematuria from recent cystoscopy [facility] 03/29/2024 :CT A/P: 03/29/2024 : L hydronephr osis Bladder Bx: 04/10/2024 : Dr Freeman Seen in the ER and admitted to [facility] and D/c 07/08/2024 : Noted to have hematuria, has to see Dr Cantrell on flomax 0.4mg daily Pain of le ft hip joint 3475351330 53558 M25.552 [facility] 11/26/2023 Dr Jerez/Magy 11/26/2023 , treated with PT Low back pain 466215074 M54.50 Addnedum 11/26/2023 See case on 11/14/2023 , tramadol sent On methocarbo mol, see [facility] note, should stop thisAlso stop any NSAIDs Referred to Dr Payne ortho spine surgeonAls o to see Dr Jerez on 01/01/2024 MRI T/C spine 05/01/2024 On gabapentin 300mg tid Steatotic liver disease 646847952 K76.0 12/05/2023 : CT A/PUS liver 10/14/2023 Syncope 165164175 R55 [facility] 07/04/2024 XR Chest 07/04/2024 ECHO 07/04/2024 : 55-60%MRI brain 07/07/2024 : [facility] eds to see Dr Freeman Transition of care [address]323 105 Z75.8 Anemia 748416430 D64.9 On iron 325mg daily, get labs Neuropathy 755181357 G62 [address] Mills anS/p EMG [id number] Myron Guido DPM [facility] Pod[facility] [address] [address] 07/17/2024 09:50:02 07/21/2024 09:34:00 Peripheral neuropathy due to type 2 diabetes mellitus 0986161440 107 E11.42 Onychomyco sis of toenails 132205758 B35.1 [id number] Gabi Robbins MD [facility] [place] [address] [place] [address] 08/07/2024 15:13:33 08/07/2024 16:26:29 Chronic retention of urine 155119934 R33.8 [id number] Sahara guzman MD [facility] Primary [facility] [address] [facility] [address] [place] [address] 08/12/2024 11:22:19 08/12/2024 12:43:30 Screening - NAD 542471409 Z13.9 C-scope: Get this done Get yearly [...] apt with urology and cardiology Essential hypertension 06086482 I10 On lisinopril 2.5mg daily, do not take till seen by cardiology d/t recent hospitaliz ation for syncope, d/c 07/08/2024 Get labsGet a referral to cardiology Hyperlipidemia 73019450 E78.5 On ASAOn atorvastat in 80mg 2 tab dailyGet labs 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 666941853 E11.9 On metformin ER 500mg bidOn synjardy XR 5-500mg bid, d/c this as he is already on metforminO n trulicity 1.5mg weeklyGet labs Urinary incontinence 165 263145 R32 On flomaxOn myrbetriq 12/05/2023 : [facility] ER s/p fall hematuria, CT A/P CT A/P 01/29/2024 d/t hematuria from recent cystoscopy [facility] 03/29/2024 :CT A/P: 03/29/2024 : L hydronephr osis Bladder Bx: 04/10/2024 : Dr Freeman Ex-cigarette smoker 2810 45757 Z87.891 US AAA: 10/14/2023 : Neg Coronary arteriosclerosis 21900556 I25.10 On eliquis, restarted on at D/c from [facility] on 07/08/2024 Should NOT be on coumadin Dr Sofia [facility] 08/06/2024 : On eliquis, and has to see Dr Gee Gastroesop hageal reflux disease without esophagitis 797351107 K21.9 On omeprazole 20mg daily, take PRN, get EGD Moderate r ecurrent major depression 57852349 F33.1 States that he did use to have [facility], [facility], used to be on medication s, but has not taken these, used to see psychiatry in the past, declines any meds or referrals, states that he is doing very well, not suicidal or homicidal Cystitis 24655347 N30.90 On flomaxOn Myrbetriq 50mg daily S/p ER 12/05/2023 , s/p CT A/P 12/05/2023 Referred to urologyCT A/P 01/29/2024 d/t hematuria from recent cystoscopy [facility] 03/29/2024 :CT A/P: 03/29/2024 : L hydronephr osisBladde r Bx: 04/10/2024 : Dr Edward in the ER and admitted to [place] and D/c 07/08/2024 : Noted to have hematuria, has to see Dr Pete Robbins 08/07/2204 : to get monthly Omer Cath done Pain of le ft hip joint 0200537351 19754 M25.552 [facility] 11/26/2023 Dr Jerez/Magy 11/26/2023 , treated with PT Low back pain 786182598 M54.50 Addnedum 11/26/2023 See case on 11/14/2023 , tramadol sent On methocarbo mol, see [facility] note, should stop thisAlso stop any NSAIDs Referred to Dr Payne ortho spine surgeonAls o to see Dr Jerez on 01/01/2024 MRI T/C spine 05/01/2024 On gabapentin 300mg tid Steatotic liver disease 284632565 K76.0 12/05/2023 : CT A/PUS liver 10/14/2023 Hep panel/GGT: Neg 06/04/2024 Repeat US liver, ordered 08/12/2024 Syncope 846530874 R55 S/p D[facility] 07/04/2024 XR Chest 07/04/2024 ECHO 07/04/2024 : 55-60%MRI brain 07/07/2024 : [facility] OV 08/12/2024 : Does well now Anemia 688418476 D64.9 On iron 325mg daily, get labs Neuropathy 130398634 G62 .[address] Mills anS/p EMG Proteinuria 33367536 R80 .9 Refer to nephrology [id number] Gabi Robbins MD [facility] [address] [address] 09/02/2024 09:59:47 09/02/2024 10:35:07 Chronic retention of urine 687719711 R33.8 [id number] Gabi Robbins MD [facility] [address] [address] 10/02/2024 10:44:50 10/02/2024 11:27:52 Chronic retention of urine 764804095 R33.8 [id number] Sahara guzman MD [facility] [address] [facility] [address] [place] [address] 10/14/2024 14:34:18 10/14/2024 15:06:28 Screening - NAD 961118557 Z13.9 C-scope: Get this done Get yearly [...] apt with urology and cardiology Essential hypertension 33402387 I10 Not on lisinopril 2.5mg daily, do not take till seen by cardiology d/t recent hospitaliz ation for syncope, d/c 07/08/2024 Get labs Hyperlipidemia 68691611 E78.5 On ASAOn atorvastat in 80mg 1/2 tab dailyGet labs 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 739245158 E11.9 On metformin ER 500mg bidOn synjardy XR 5-500mg bid, d/c this as he is already on metforminO n trulicity 1.5mg weeklyGet labs Urinary incontinence 165 864697 R32 On flomaxOn myrbetriq 12/05/2023 : [facility] ER s/p fall hematuria, CT A/P CT A/P 01/29/2024 d/t hematuria from recent cystoscopy [facility] 03/29/2024 :CT A/P: 03/29/2024 : L hydronephr osis Bladder Bx: 04/10/2024 : Dr Freeman Ex-cigarette smoker 2810 58978 Z87.891 US AAA: 10/14/2023 : Neg Coronary arteriosclerosis 62651368 I25.10 On eliquis, restarted on at D/c from [facility] on 07/08/2024 Should NOT be on coumadin OV 10/14/2024 :Dr Sofia [facility] 08/06/2024 : On eliquis, and has to see Dr Gee and is s/p PCM insertion Gastroesop hageal reflux disease without esophagitis 326523301 K21.9 On omeprazole 20mg daily, take PRN,Get EGD report Moderate r ecurrent major depression 33268659 F33.1 States that he did use to have [facility], [facility], used to be on medication s, but has not taken these, used to see psychiatry in the past, declines any meds or referrals, states that he is doing very well, not suicidal or homicidal Cystitis 41232620 N30.90 On flomaxOn Myrbetriq 50mg daily S/p ER 12/05/2023 , s/p CT A/P 12/05/2023 Referred to urologyCT A/P 01/29/2024 d/t hematuria from recent cystoscopy [facility] 03/29/2024 :CT A/P: 03/29/2024 : L hydronephr osisBladde r Bx: 04/10/2024 : Dr Edward in the ER and admitted to [place] and D/c 07/08/2024 : Noted to have hematuria, has to see Dr Pete Robbins 08/07/2204 : to get monthly Omer Cath done Pain of le ft hip joint 3218155820 14946 M25.552 [place] [facility] 11/26/2023 Dr Jerez/Magy 11/26/2023 , treated with PT Low back pain 070400644 M54.50 Addnedum 11/26/2023 See case on 11/14/2023 , tramadol sent On methocarbo mol, see [facility] note, should stop thisAlso stop any NSAIDs Referred to Dr Payne ortho spine surgeonAls o to see Dr Jerez on 01/01/2024 MRI T/C spine 05/01/2024 On gabapentin 300mg tid Steatotic liver disease 378314965 K76.0 12/05/2023 : CT A/PUS liver 10/14/2023 Hep panel/GGT: Neg 06/04/2024 Repeat US liver, ordered 08/12/2024 Syncope [id number] R55 S/p D[facility] 07/04/2024 XR Chest 07/04/2024 ECHO 07/04/2024 : 55-60%MRI brain 07/07/2024 : [facility] OV 08/12/2024 : Does well now Anemia 712970663 D64.9 On iron 325mg daily, get labs Neuropathy 612531206 G62 .[address] Mills anS/p EMG Proteinuria 00006827 R80 .9 Refer to nephrology Screening for malignant neoplasm of colon 031598041 Z12.11 Get C-scope report [id number] Sahara guzman MD [facility] Internal Med [facility] [address] [facility], [facility] [address] [place] [address] 12/29/2024 16:37:02 12/29/2024 18:14:17 Screening - NAD 106761424 Z13.9 C-scope/EG : Dr Aguilar Get yearly flu shot, declined 07/14/2024 Get tdap if not doneGet COVID 19 vaccineGet PCV #20Get Shingrix and RSV vaccinesHe has declined all his vaccines 08/27/2023 , 07/14/2024 RTC in 2 months, do labs, ER if worse, he and his son did verbalize his understand ing of the above Essential hypertension 57049953 I10 Not on lisinopril 2.5mg dailyGet labs Hyperlipidemia 88231695 E78.5 On ASAOn atorvastat in 80mg 1/2 tab dailyGet labs 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 272533402 E11.9 On metformin ER 500mg bidNot on synjardy XR 5-500mg bid, d/c this as he is already on metforminO n trulicity 1.5mg weeklyGet labs Urinary incontinence 165 076926 R32 On flomaxOn myrbetriq 12/05/2023 : [facility] ER s/p fall hematuria, CT A/P CT A/P 01/29/2024 d/t hematuria from recent cystoscopy [facility] 03/29/2024 :CT A/P: 03/29/2024 : L hydronephr osis Bladder Bx: 04/10/2024 : Dr Freeman Ex-cigarette smoker 8265 79639 Z87.891 US AAA: 10/14/2023 : Neg Coronary arteriosclerosis 86457770 I25.10 On eliquis, restarted on at D/c from [facility] on 07/08/2024 Should NOT be on coumadin OV 10/14/2024 :Dr Bismark LAZAROHV 08/06/2024 : On eliquis, and has to see Dr Gee and is s/p PCM insertion OV 12/29/2024 : Keep apt with cardiology Gastroesop hageal reflux disease without esophagitis 389089934 K21.9 On omeprazole 20mg daily, take PRN,Get EGD report Moderate r ecurrent major depression 32206685 F33.1 States that he did use to have PTSD, [facility], used to be on medication s, but has not taken these, used to see psychiatry in the past, declines any meds or referrals, states that he is doing very well, not suicidal or homicidal Cystitis 90102277 N30.90 On flomaxOn Myrbetriq 50mg daily S/p ER 12/05/2023 , s/p CT A/P 12/05/2023 Referred to urologyCT A/P 01/29/2024 d/t hematuria from recent cystoscopy [facility] 03/29/2024 :CT A/P: 03/29/2024 : L hydronephr osisBladde r Bx: 04/10/2024 : Dr Edward in the ER and admitted to [place] and D/c 07/08/2024 : Noted to have hematuria, has to see Dr Pete Robbins 08/07/2204 : to get monthly Omer Cath done OV 12/29/2024 : Now should see urology, referred Pain of le ft hip joint 2720561466 05584 M25.552 [facility] [facility] 11/26/2023 Dr Jerez/Magy 11/26/2023 , treated with PT Low back pain 862065426 M54.50 Addnedum 11/26/2023 See case on 11/14/2023 , tramadol sent On methocarbo mol, see [facility] note, should stop thisAlso stop any NSAIDs Referred to Dr Payne ortho spine surgeonAls o to see Dr Jerez on 01/01/2024 MRI T/C spine 05/01/2024 On gabapentin 300mg tid Steatotic liver disease 655274937 K76.0 12/05/2023 : CT A/PUS liver 10/14/2023 Hep panel/GGT: Neg 06/04/2024 US liver 11/03/2024 : Neg Syncope 362533853 R55 S[facility]p D[facility] 07/04/2024 XR Chest 07/04/2024 ECHO 07/04/2024 : 55-60%MRI brain 07/07/2024 : [facility] OV 08/12/2024 : Does well now Anemia 147031432 D64.9 On iron 325mg daily, get labs Neuropathy 143182139 G62 .[address] Mills anS/p EMG Proteinuria 95211821 R80 .9 Refer to nephrology Paget's di sease of pelvis 550711342 M88.88 S/p CT A/P 11/03/2024 Refer to rheumatolo gy [id number] Sahara guzman MD [facility] [address] [place] [address] 03/10/2025 14:24:16 03/10/2025 15:10:25 Screening - NAD 665433177 Z13.9 C-scope/EG : Dr Aguilar Get yearly flu shot, declined 07/14/2024 Get tdap if not doneGet COVID 19 vaccineGet PCV #20Get Shingrix and RSV vaccinesHe has declined all his vaccines 08/27/2023 , 07/14/2024 RTC in 2 months, do labs, ER if worse, he and his son did verbalize his understand ing of the above Essential hypertension 28836093 I10 Not on lisinopril 2.5mg dailyGet labs Hyperlipidemia 10010372 E78.5 On ASAOn atorvastat in 80mg 1/2 tab dailyGet labs 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 411846025 E11.9 On metformin ER 500mg bidNot on synjardy XR 5-500mg bid, d/c this as he is already on metforminO n trulicity 1.5mg weeklyGet labs Urinary incontinence 165 288722 R32 On flomaxOn myrbetriq 12/05/2023 : [facility] ER s/p fall hematuria, CT A/P CT A/P 01/29/2024 d/t hematuria from recent cystoscopy [facility] 03/29/2024 :CT A/P: 03/29/2024 : L hydronephr osis Bladder Bx: 04/10/2024 : Dr Freeman Ex-cigarette smoker 2810 00883 Z87.891 AAA: 10/14/2023 : Neg Coronary arteriosclerosis 09217253 I25.10 On eliquis, restarted on at D/c from [facility] on 07/08/2024 Should NOT be on coumadin OV 10/14/2024 :Dr Sofia [facility] 08/06/2024 : On eliquis, and has to see Dr Gee and is s/p PCM insertion OV 12/29/2024 : Keep apt with cardiology OV 03/10/2025 : Seen in the ER and hospital at [place] Dr Kaiser has to see Dr Sofia and Dr GeeA lso start on metoprolol 25mg po bid and mag ox 400mg bid as per Dr Sofia with whom i personally called and he will be also seen today at [facility] Gastroesop hageal reflux disease without esophagitis 529915471 K21.9 On omeprazole 20mg daily, take PRN,Get EGD report Moderate r ecurrent major depression 31429965 F33.1 States that he did use to have [facility], used to be on medication s, but has not taken these, used to see psychiatry in the past, declines any meds or referrals, states that he is doing very well, not suicidal or homicidal Cystitis 33274278 N30.90 On flomaxOn Myrbetriq 50mg daily S/p ER 12/05/2023 , s/p CT A/P 12/05/2023 Referred to urologyCT A/P 01/29/2024 d/t hematuria from recent cystoscopy [facility] 03/29/2024 :CT A/P: 03/29/2024 : L hydronephr osisBladde r Bx: 04/10/2024 : Dr Edward in the ER and admitted to [place] and D/c 07/08/2024 : Noted to have hematuria, has to see Dr Pete Robbins 08/07/2204 : to get monthly Omer Cath done OV 12/29/2024 : Now should see urology, referred OV 03/10/2025 :S/p ER [place] 03/07/2025 CT A/P 03/07/2025 : Non obstructin g renal calculi Pain of le ft hip joint 1743112566 06127 M25.552 [place] [facility] 11/26/2023 Dr Jerez/Magy 11/26/2023 , treated with PT Low back pain 566640359 M54.50 Addnedum 11/26/2023 See case on 11/14/2023 , tramadol sent On methocarbo mol, see [facility] note, should stop thisAlso stop any NSAIDs Referred to Dr Payne ortho spine surgeonAls o to see Dr Jerez on 01/01/2024 MRI T/C spine 05/01/2024 On gabapentin 300mg tid Dr Hong CT L Spine 03/03/2025 Steatotic liver disease 521085388 K76.0 12/05/2023 : CT A/PUS liver 10/14/2023 Hep panel/GGT: Neg 06/04/2024 US liver 11/03/2024 : Neg Syncope 348806460 R55 S/p D/c 07/08/2024 : [facility] [facility]2024 CT C-spine 07/04/2024 XR Chest 07/04/2024 ECHO 07/04/2024 : 55-60%[facility] OV 08/12/2024 : Does well now Anemia 535783551 D64.9 On iron 325mg daily, get labs Neuropathy [id number] G62 .[address] Mills anS/p EMG Proteinuria [id number] R80 .9 Refer to nephrology Paget's di sease of pelvis [id number] M88.88 S/p CT A/P 11/03/2024 Refer to rheumatolo gy Transition of care [id number] 105 Z75.8 Health Concerns Section Related Observation LastModified by Organization Yeni santiago LastModified Time None Recorded Concern Status LastModified by Organization Details LastModified Time None Recorded Advance Directives Directive Y: Payers Insurance Date Sequence Insurance Name Policy Number Policy Robles Covered Member ID Robles Member ID Guarantor Name 12/25/2024 2 [place] [facility] Cosme Javier [id number] Cosme Javier 09/01/2024 1 [facility] (MEDICARE REPLACEMENT/A DVANTAGE - PPO) Cosme Javier [id number] Cosme Javier 03/09/2025 2 [place] WHEN MEDICARE OR MEDICARE REPLACEMENT PRIMARY) Cosme Javier [id number] Cosme Javier 09/01/2024 1 [facility] (MEDICARE REPLACEMENT/A DVANTAGE - HMO) Cosme Javier [id number] Cosme Javier 03/09/2025 1 [facility] (MEDICARE REPLACEMENT/A DVANTAGE - PPO) [id number] Cosme Javier [id number] Cosme Javier Notes Date Note Type Note Provider Name and Address Organization Details Recorded Time 09/02/2024 text/html this patient is here for a catheter change. He wants to continue with catheter changes he does not want a suprapubic tube he is doing well Gabi Robbins MD [address], [place], [address], [employer] 09/02/2024 12:31:40 10/02/2024 text/html this patient is coming in to get a suprapubic tube changed Gabi Robbins MD [address], [place], [address], [employer] 10/02/2024 13:50:45 10/14/2024 text/html OV 08/27/2023:He re [...] hosp f/u apt, he was d/c [facility] 07/08/2024 for an episode of syncope, was [...] Dr Marlen LAZARO Sahara Lee MD [address] [facility], [place], [address], [facility] [employer] [facility] [employer] 10/14/2024 15:04:31 12/29/2024 text/html OV 08/27/2023:He re to establish carePast Hx:JANNAHLMaggy smoker Reviewed social family and surgical historyHere [...] hosp f/u apt, he was d/c from [facility] 07/08/2024 for an episode of syncope, was [...] now s/p PCM insertion with Dr Gee [facility] OV 12/29/2024: Here for his f/u apt, he is doing well today Sahara Lee MD [address] [facility], [place], [address], [facility] [employer] 12/29/2024 18:25:24 03/10/2025 text/html OV 08/27/2023:He re to establish carePast Hx:HTNHLDDMIKeiko smoker Reviewed social family and surgical historyHere [...] hosp f/u apt, he was d/c from [facility] 07/08/2024 for an episode of syncope, was [...] now s/p PCM insertion with Dr Gee [facility] OV 12/29/2024: Here for his f/u apt, he is doing well today OV 03/10/2025: Here for his post hospital f/u, s/p d/c for UTI as well as syncope, today is doing much better, still has his indwelling cath Sahara Lee MD [facility] [address] [address], [place], [address], [facility] [employer] [facility] 03/10/2025 15:12:49
--- OUTSIDE RECORDS SUMMARY | 2025-04-03 11:59 | XMS_ITS | Encounter Summary ---
Author Organization [facility] Address 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
--- OUTSIDE RECORDS SUMMARY | 2025-04-03 11:59 | XMS_ITS | Referral Summary ---
Author Organization [facility] er Address [address] [place] [address] Care Team Providers Care Higher Education Administrator Name Role Phone No, Physician Unavailable Dear, Campbell Bullard DO Primary Care Provider + Encounters Date Type Department Care Team Description 03/09/2025 Orders Only [facility] Medical [facility] Cardiology [address] [place] [phone] Delmer Prince MD 03/03/2025 Telephone [facility] Medical [facility] Cardiology [address] [place] [phone] Delmer Prince MD 03/02/2025 Orders Only [facility] Health Information Management [address] [place] [address] Delmer Prince MD from Last 3 Months [...] 08/06/2022 Assessment & Plan (08/06/2022 12:13 PM SURGICAL GARMENT ASSEMBLER): Chronic, worsening - Refer to vascular surgery [...] 04/17/2022 Assessment & Plan (11/13/2022 2:04 PM SURGICAL GARMENT ASSEMBLER): Chronic, R anterior tibial (12/12); unprovoked per [...] surgery Assessment & Plan (08/06/2022 12:10 PM SURGICAL GARMENT ASSEMBLER): Chronic, R anterior tibial (12/12); unprovoked per [...] 04/17/2022 Assessment & Plan (08/06/2022 12:14 PM SURGICAL GARMENT ASSEMBLER): Chronic Complications: CAD, HTN, Neuropathy A1c: 8.0 [...] 04/17/2022 Assessment & Plan (08/06/2022 12:20 PM SURGICAL GARMENT ASSEMBLER): Chronic, controlled - lisinopril 2.5mg Assessment & [...] omeprazole 20mg Coronary artery disease invo lving [place] coronary artery of [place] heart without angina pectoris 04/17/2022 Assessment & [...] Date Resolved Date Bipolar 1 disorder 04/17/2022 2 Assessment & Plan (04/17/2022 9:16 AM CDT): [...] Comments Blood Pressure 137/63 11/20/2022 4:30 PM SURGICAL GARMENT ASSEMBLER Pulse 65 11/20/2022 4:55 PM SURGICAL GARMENT ASSEMBLER Temperature 36 C (96.8 F) 11/20/2022 10:41 AM SURGICAL GARMENT ASSEMBLER Respiratory Rate 18 11/20/2022 10:41 AM SURGICAL GARMENT ASSEMBLER Oxygen Saturation 100% 11/20/2022 4:55 PM SURGICAL GARMENT ASSEMBLER Inhaled Oxygen Concentration - - Weight 104.8 kg (231 lb) 11/20/2022 10:41 AM SURGICAL GARMENT ASSEMBLER Height 177.8 cm (5' 10) 11/13/2022 1:42 PM SURGICAL GARMENT ASSEMBLER Body Mass Index 33.15 11/13/2022 1:42 PM SURGICAL GARMENT ASSEMBLER Plan of Treatment Not on file Procedures Procedure Name Priority Date/Time Associated Diagnosis Comments CARDIOLOGY DOCUMENT SCAN Routine 03/03/2025 3:16 PM CDT CARDIOLOGY DOCUMENT SCAN 03/02/2025 EGFR STAT 11/20/2022 3:11 PM SURGICAL GARMENT ASSEMBLER HEMOGLOBIN A1C Routine 11/13/2022 2:20 PM SURGICAL GARMENT ASSEMBLER 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, without long-term current use of insulin (HCC) HEPATITIS C RNA, QUANTITATIVE, PCR Routine 05/08/2022 10:08 AM CDT Need for hepatitis C screening test LIPID PANEL Routine 04/17/2022 9:43 AM CDT Coronary artery disease involving [place] coronary artery of [place] heart without angina pectoris ALBUMIN CREATININE RATIO, URINE Routine 04/17/2022 9:43 AM CDT 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 73 m2 [facility] Comment: Interpretive Data Reference Interval [...] last reviewed 2021. Blood 11/20/2022 3:11 PM SURGICAL GARMENT ASSEMBLER 11/20/2022 3:16 PM SURGICAL GARMENT ASSEMBLER us Abraham Coello MD LAB BLOOD ORDERABLES Fi nal Result Performing Organization Address City/State/[facility] Co de Phone Number [facility] [address] [facility] [place] [address] * (ABNORMAL) Hemoglobin A1c (11/13/2022 2:20 PM SURGICAL GARMENT ASSEMBLER) Pathologist [facility] Hgb A1C 8.6(H) 4.0 - 5.6 % [facility] Estimated Average Glucose 200 mg/dL [facility] Comment: The ADA recommends reporting an estimated Average Glucose (eAG) with all Hemoglobin A1c results using the equation derived from a study of 507 normal and diabetic adults. Minority populations were underrepresented and children were not included. (Diabetes Care 31:7740-1792, 2008). The eAG is not equivalent to a fasting glucose. Blood 11/13/2022 2:20 PM SURGICAL GARMENT ASSEMBLER 11/13/2022 2:41 PM SURGICAL GARMENT ASSEMBLER Campbell Bullard Dear DO LAB BLOOD ORDERABLES Fin al Result Performing Organization Address City/[facility]/ZIP Co de Phone Number [facility] [address] [facility] [place] [address] * Hepatitis C (HCV) RNA PCR, quantitative (05/08/2022 10:08 AM CDT) Pathologist [facility] HCV RNA IU/mL HCV Not Detected IU/mL [...] 05/10/2022 8:17 AM CDT Performed at: [address] [id number] Auricular Acupuncturist: Jamar Cooper MD, Phone: [phone] Campbell Bullard Dear DO LAB MICROBIOLOGY - GENER AL ORDERABLES Edited Result - Final [facility] - 01 * (ABNORMAL) Albumin Creatinine Ratio, Urine (04/17/2022 9:43 AM CDT) Pathologist [facility] Creatinine ur 54.0 Not Estab. mg/dL [facility] - 01 Microalbumin, ur 35.2 Not Estab. ug/mL [facility] - 01 Microalbumin/cre at ratio 65(H) 0 - 29 mg/g creat [facility] - 01 Comment: Normal: 0 - 29 Moderately increased: 30 - 300 Severely increased: >300 Urine 04/17/2022 9:43 AM CDT 04/17/2022 Narrative [facility] - 04/18/2022 10:10 AM CDT Performed at: - [facility] [id number] Auricular Acupuncturist: Thad Peacock PhD, Phone: [phone] Campbell Bullard Dear DO LAB URINE ORDERABLES Fin al Result Performing Organization Address [facility] Co de Phone Number [facility] - * Lipid panel (04/17/2022 9:43 [...] - 04/18/2022 7:10 AM CDT Performed at: [address] [id number] Auricular Acupuncturist: Thad Peacock PhD, Phone: [phone] Campbell Oswald DO LAB BLOOD ORDERABLES Fin al Result Performing Organization Address [facility] de Phone Number [facility] - 01 * Occult blood, fecal non neoplasm screening (11/22/2017 11:15 AM SURGICAL GARMENT ASSEMBLER) Collection date , [id number] [facility] Collection time 1, feces 1,115 [facility] Occult blood, fecal Negative Negative [facility] Stool 11/22/2017 11:1 5 AM SURGICAL GARMENT ASSEMBLER 11/22/2017 1:19 PM SURGICAL GARMENT ASSEMBLER Narrative [facility] - 11/22/2017 2:38 PM SURGICAL GARMENT ASSEMBLER Hakeem Muro DO LAB BODY FLUIDS AND STOOLS ORDERABLES Final Result Performing Organization Address City/[facility]/ZIP Co de Phone Number [facility] [address] [facility] Department [place] [address] from Last 3 Months or Most Recently Relevant to Health Maintenance Insurance [facility]ICARE [facility] Address: [facility] [address] [place] [address] IDPA Care Teams Higher Education Administrator Relationship Specialty Start Date End Date Dear, Campbell Bullard DO PCP - General Family Medicine 04/13/22 No, Physician 12/21/16
--- OUTSIDE RECORDS SUMMARY | 2025-04-03 12:00 | XMS_ITS | Encounter Summary ---
Author Organization [facility] Address [address] [place] [address] Care Team Providers Care Clerk Telegraph Service Name Role Phone DearCampbell DO Primary Care Provider + Encounter Details Date Type Department Care Team (Late st Contact Info) Description 10/13/2001 Outpatient Historical [facility] Internal Medicine [place] [address] [place] [phone] Reg Katz MD Social History Tobacco Use Types Packs/Day Years Used Date Smoking Tobacco: Never Assessed Sex and Gender Information Value Date Recorded Sex Assigned at Not on file Legal Sex Male 5:24 AM DOOR AND ARRIVAL ATTENDANT Gender Identity Not on file Sexual Orientation Not on file documented as of this encounter Plan of Treatment Not on file documented as of this encounter Visit Diagnoses Not on filedocumented in this encounter Care Teams Clerk Telegraph Service Relationship Specialty Start Date End Date DearCampbell DO [address] [place] [address] PCP - General Family Practice 07/09/22 documented as of this encounter
--- OUTSIDE RECORDS SUMMARY | 2025-04-03 12:00 | XMS_ITS | Encounter Summary ---
Author Organization [facility] Address [address] [place] [address] Care Team Providers Care Vacuum Truck Driver Name Role Phone DearCampbell DO Primary Care Provider + Encounter Details Date Type Department Care Team (Latest Contact Info) Description 07/28/2000 Inpatient Historical HIS PATIENT IN A BED Indigo Nichole Coronary atherosclerosis of [place] coronary artery (Primary Dx) Social History Tobacco Use Types Packs/Day Years Used Date Smoking Tobacco: Never Assessed Sex and Gender Information Value Date Recorded Sex Assigned at Not on file Legal Sex Male 5:24 AM PARALEGAL SECRETARY Gender Identity Not on file Sexual Orientation Not on file documented as of this encounter Plan of Treatment Not on file documented as of this encounter Visit Diagnoses Diagnosis Coronary atherosclerosis of [place] coronary artery- Primary documented in this encounter Care Teams Vacuum Truck Driver Relationship Specialty Start Date End Date DearCampbell DO [address] [place] [phone] PCP - General Family Practice 07/09/22 documented as of this encounter
--- OUTSIDE RECORDS SUMMARY | 2025-04-03 12:00 | XMS_ITS | Encounter Summary ---
Author Organization [facility] Address [address] [place] [address] Care Team Providers Care Faculty Administrator Name Role Phone DearCampbell DO Primary Care [...] on file Legal Sex Male 5:24 AM STOCK DIGGER Gender Identity Not on file Sexual Orientation Not on file documented as of this encounter Plan of Treatment Not on file documented as of this encounter Visit Diagnoses Diagnosis Other convulsions- Primary documented in this encounter Care Teams Faculty Administrator Relationship Specialty Start Date End Date DearCampbell DO [address] [place] [address] PCP - General Family Practice 07/09/22 documented as of this encounter
--- OUTSIDE RECORDS SUMMARY | 2025-04-03 12:00 | XMS_ITS | Encounter Summary ---
Author Organization [facility] Health Address [address] [place] [address] Care Team Providers Care Child Therapist Name Role Phone Unknown, Provider Primary Care Provider Unavaila ble Reason for Visit * Reason Onset Date Comments Med Question 06/18/2024 Encounter Details Date Type Department Care Team (Late st Contact Info) Description 06/18/2024 Telephone [facility] - Centralized Scheduling [address] [place] [address] Thao Neri MD [address] [place] [address] Med Question Social History Tobacco Use Types Packs/Day Years Used Date Smoking Tobacco: Former Smokeless Tobacco: Never Alcohol Use Standard Drinks/Week Comments No 0 (1 standard drink = 0.6 oz pur e alcohol) Sex and Gender Information Value Date Recorded Sex Assigned at Not on file Legal Sex Male 5:27 AM ASSISTANT CHIEF NURSING OFFICER Gender Identity Not on file Sexual [...] on filedocumented in this encounter Care Teams Child Therapist Relationship Specialty Start Date End Date Unknown, Provider PCP - General 02/28/24 documented as of this encounter
--- OUTSIDE RECORDS SUMMARY | 2025-04-03 12:00 | XMS_ITS | Encounter Summary ---
Author Organization [facility] Address [address] [place] [address] Care Team Providers Care Cdl Dedicated Truck Driver Name Role Phone DearCampbell DO Primary Care Provider + Encounter Details Date Type Department Care Team (Late st Contact Info) Description 01/03/2000 Outpatient Historical Division of Neurology [address] [place] [address]., [address] [address] Sal Cody Social History Tobacco Use Types Packs/Day Years Used Date Smoking Tobacco: Never Assessed Sex and Gender Information Value Date Recorded Sex Assigned at Not on file Legal Sex Male 5:24 AM ESTATE MANAGER Gender Identity Not on file Sexual Orientation Not on file documented as of this encounter Plan of Treatment Not on file documented as of this encounter Visit Diagnoses Not on filedocumented in this encounter Care Teams Cdl Dedicated Truck Driver Relationship Specialty Start Date End Date DearCampbell DO [facility] [place] [address] PCP - General Family Practice 07/09/22 documented as of this encounter
--- OUTSIDE RECORDS SUMMARY | 2025-04-03 12:00 | XMS_ITS | Encounter Summary ---
Author Organization [facility] Address [address] [place] [address] Care Team Providers Care Pipe Coverer Name Role Phone DearCampbell DO Primary Care Provider + Encounter Details Date Type Department Care Team (Late st Contact Info) Description 07/09/2002 Outpatient Historical [facility] Internal Medicine [place] [address] [place] [phone] Reg Katz MD Social History Tobacco Use Types Packs/Day Years Used Date Smoking Tobacco: Never Assessed Sex and Gender Information Value Date Recorded Sex Assigned at Not on file Legal Sex Male 5:24 AM CHILD CARE GROUP LEADER Gender Identity Not on file Sexual Orientation Not on file documented as of this encounter Plan of Treatment Not on file documented as of this encounter Visit Diagnoses Not on filedocumented in this encounter Care Teams Pipe Coverer Relationship Specialty Start Date End Date DearCampbell DO [address] [place] [address] PCP - General Family Practice 07/09/22 documented as of this encounter
--- OUTSIDE RECORDS SUMMARY | 2025-04-03 12:00 | XMS_ITS | Clinical Summary ---
Author Organization [facility] Address [facility] [place] [address] Care Team Providers Care Superintendent Name Role Phone Sahara Lee MD Primary [...] without hematuria 2023 DVT (deep venous thrombosis) ([facility]) 1 11/07/2022 Hypercoagulable state ([facility]) 09/06/2023 Osteoarthrosis 09/06/2023 Old myocardial infarction [...] vein thrombosis (DVT) of right tibial vein ([facility]) 04/17/2022 Overview (08/26/2024): Last Assessment & [...] disorder, without long-term current use of insulin ([facility]) 04/17/2022 Diabetic polyneuropathy asso ciated with type 2 diabetes mellitus ([facility]) 04/17/2022 Former smoker 04/17/2022 Overview (08/26/2024): Last Assessment & Plan: Quit 38 years ago -Not candidate for lung cancer screening - is due for abdominal aortic aneurysm screening Gastroesophageal reflux disease without esophagi tis 04/17/2022 Overview (08/26/2024): Last Assessment & Plan: Chronic, stable - omeprazole 20mg Mixed hyperlipidemia 04/17/2022 Type 2 diabetes mellitus wit h hyperglycemia ([facility]) 04/17/2022 Overview (08/26/2024): Diagnosed around 2004. [...] on file Legal Sex Male 12:31 PM TRADE SPECIALIST Gender Identity Not on file Sexual Orientation Not on file Last Filed Vital Signs Vital Sign Reading Time Taken Comments Blood Pressure 135/82 08/26/2024 9:10 AM TRADE SPECIALIST Pulse 64 08/26/2024 8:45 AM TRADE SPECIALIST Temperature 36.3 C (97.4 F) 03/20/2024 8:24 AM CDT Respiratory Rate 16 08/26/2024 8:45 AM TRADE SPECIALIST Oxygen Saturation 97% 08/26/2024 8:45 AM TRADE SPECIALIST Inhaled Oxygen Concentration - - Weight 94.8 kg (209 lb) 08/26/2024 8:45 AM TRADE SPECIALIST Height 185.4 cm (6' 1) 08/26/2024 8:45 AM TRADE SPECIALIST Body Mass Index 27.57 08/26/2024 8:45 AM TRADE SPECIALIST Plan of Treatment Upcoming Encounters Date Type Department Care Team (Late st Contact Info) Description 06/15/2025 10:40 AM CDT Office Visit [facility] Medical Group Multispecialty Care - [address] [place] [address] Amadeo Armstrong MD [address] [place] [address] Health Maintenance Due Date Last Done Comments [...] 0209/2022, 02/11/2022, Additional history exists PHQ-2 (Physician [place]) 09/23/2024 Pneumococcal Vaccine: 50+ Years Completed 10/17/2016, [...] age to complete this topic Insurance MED [facility] MEDICARE [employer] MEDICAID DEPT OF H[employer]AN [address] Care Teams Superintendent Relationship Specialty Start Date End Date Sahara Lee MD [address] [address] PCP - General INTERNAL MEDICINE 03/20/24
--- OUTSIDE RECORDS SUMMARY | 2025-04-03 12:00 | XMS_ITS | Encounter Summary ---
Author Organization [facility] Address 

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
--- OUTSIDE RECORDS SUMMARY | 2025-04-03 12:00 | XMS_ITS | Encounter Summary ---
Author Organization [facility] Address [address] [place] [address] Care Team Providers Care Restaurant Hospitality Manager Name Role Phone DearCampbell DO Primary Care Provider + Encounter Details Date Type Department Care Team (Late st Contact Info) Description 07/09/2002 Outpatient Historical [facility] [place] [address] [place] [phone] Reg Katz MD Social History Tobacco Use Types Packs/Day Years Used Date Smoking Tobacco: Never Assessed Sex and Gender Information Value Date Recorded Sex Assigned at Not on file Legal Sex Male 5:24 AM [employer] Gender Identity Not on file Sexual Orientation Not on file documented as of this encounter Plan of Treatment Not on file documented as of this encounter Visit Diagnoses Not on filedocumented in this encounter Care Teams Restaurant Hospitality Manager Relationship Specialty Start Date End Date DearCampbell DO [address] [place] [address] PCP - General Family Practice 07/09/22 documented as of this encounter
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
[2025-04-03 12:16] LABS: Hematocrit 37.4 % (42.0-52.0); Hemoglobin 11.9 g/dL (14.0-18.0); Immature Granulocyte Percent A 0.5 % (0-0.5); Lymphocytes Absolute Auto 1.61 K/mm3 (0.9-3.2); Mean Corpuscular HGB Conc 31.8 g/dl (32-36); Mean Corpuscular Hemoglobin 29.3 pg (26-34); Mean Corpuscular Volume 92.1 fl (80-100); Nucleated Red Blood Cells Absolute Auto 0.000 K/mm3 (0.0-0.012); Nucleated Red Blood Cells Perc 0.0 % (0.0-0.2); Platelet Count Result 165 k/mm3 (150-375); Red Blood Count 4.06 M/mm3 (4.6-6.20); White Blood Count 5.6 K/mm3 (4.5-10.0)
[2025-04-03] MEDS: TETANUS,DIPHTHERIA,AC PERTUSSIS ADULT (0.5 ML) BOOSTRIX IM (12:24)
[2025-04-03] MEDS: SODIUM CHLORIDE 0.9% IV 1,000 ML 999 ML IV CONT (12:24)
[2025-04-03 12:28] LABS: INR 1.1; Prothrombin Time 14.0 Seconds (11.1-14.7)
[2025-04-03 12:29] LABS: Partial Thromboplastin Time 30.0 Seconds (22.3-36.8)
[2025-04-03 12:39] LABS: Alanine Aminotransferase 37 U/L (6-50); Albumin Level 4.0 g/dL (3.5-5.1); Alkaline Phosphatase 107 U/L (38-126); Anion Gap 9 mmol/L (4-12); Aspartate Amino Transferase 35 U/L (17-59); Bilirubin,Total 0.3 mg/dL (0.2-1.3); Blood Urea Nitrogen 27 mg/dL (9-20); Calcium 9.0 mg/dL (8.4-10.2); Carbon Dioxide 25 mmol/L (22-30); Chloride 104 mmol/L (98-107); Estimated CRCL calculation 53 ml/min; Estimated Glomerular Filt Rate > 60; Glucose 157 mg/dL (65-110); Potassium 4.5 mmol/L (3.4-5.0); Sodium 138 mmol/L (137-145); Total Protein 7.2 g/dL (6.3-8.2)
[2025-04-03 12:46] LABS: Magnesium 2.1 mg/dL (1.6-2.3)
[2025-04-03 12:49] LABS: NT Pro B Type Natriuretic Pept 69 pg/mL (19.9-100); Troponin I < 0.012 ng/mL (0.000-0.034)
== END 2025-04-03 16:30 | disposition home or self-care (01) ==
PROVIDERS: Emergency Provider Emergency Medicine; PCP Internal Medicine
DX: R55 Syncope and collapse (principal); S51.812A Laceration without foreign body of left forearm, initial encounter; Z23 Encounter for immunization; I69.954 Hemiplegia and hemiparesis following unspecified cerebrovascular disease affecting left non-dominant side; I25.2 Old myocardial infarction; I25.10 Atherosclerotic heart disease of native coronary artery without angina pectoris; Z90.49 Acquired absence of other specified parts of digestive tract; E11.40 Type 2 diabetes mellitus with diabetic neuropathy, unspecified; H26.9 Unspecified cataract; F10.21 Alcohol dependence, in remission; Z66 Do not resuscitate; Z96.653 Presence of artificial knee joint, bilateral; Z95.5 Presence of coronary angioplasty implant and graft; Z95.0 Presence of cardiac pacemaker; Z86.0100 Personal history of colon polyps, unspecified; Z87.442 Personal history of urinary calculi; Z87.891 Personal history of nicotine dependence; Z79.01 Long term (current) use of anticoagulants; Z79.82 Long term (current) use of aspirin; Z79.85 Long-term (current) use of injectable non-insulin antidiabetic drugs; Z79.84 Long term (current) use of oral hypoglycemic drugs; M47.812 Spondylosis without myelopathy or radiculopathy, cervical region; W18.39XA Other fall on same level, initial encounter
CPT/HCPCS: 36415; 51702; 70450; 71045; 72125; 72170; 73080; 80053; 83735; 83880; 84100; 84484; 85025; 85610; 85730; 90471; 90715; 93005; 96360; 99284; J7030

== ENCOUNTER 2025-05-25 18:07 | Emergency (ER) | payer OTHER, MEDICARE, MEDICAID, SELFPAY ==
--- OUTSIDE RECORDS SUMMARY | 2024-09-09 09:30 | XMS_ITS ---
Author Organization [facility] Office Address [address] [facility] [address] [facility] [address] [place] [address] Care Team Providers Care Grit Removal Operator Name Role Phone Alana Avilaerjit Unavailable [phone] Problems Problem Type SNOMED Code ICD Code Onset Dates Problem Status W/U Status Risk Notes Problem Chronic kidney disease stage 3 (disorder) (722508925) Stage 3 chronic kidney disease (N18.30) Active confirmed Problem Diabetic renal disease (645102725) Type 2 diabetes mellitus with diabetic chronic kidney disease (E11.22) Active confirmed Problem Essential hypertension (19759945) Essential hypertension (I10) Active confirmed Problem Hyperlipidemia (23487809) Hyperlipidemia, unspecified (E78.5) Active confirmed Encounters Encounter Location Date Provider Diagnosis [place] [facility] [address] [facility] [address] [place] [address] 09/09/2024 Melvin Avila Stage 3 chronic kidn ey disease N18.30 ; Type 2 diabetes mellitus with diabetic chronic kidney disease E11.22 ; Essential hypertension I10 and Hyperlipidemia, unspecified E78.5 Assessments Encounter Date Diagnosis (ICD Code) Assessment Notes Treatment Notes Treatment Clinical Notes Section Notes 09/09/2024 Stage 3 chronic kidney disease (ICD-10 - N18.30) 09/09/2024 Type 2 diabetes mellitus with diabetic chronic kidney disease (ICD-10 - E11.22) 09/09/2024 Essential hypertension (ICD-10 - I10) 09/09/2024 Hyperlipidemia, unspecified (ICD-10 - E78.5) Plan Of Treatment No Information Progress Notes * JUDIMARY GRACEDOB: [birth year] (79 yo M)Acc No.[id number]:09/09/2024 Progress Notes Patient: MARY GRACE SINGH Provider: Belkys GARCIA MD, F.A.C.P, F.A.S.N. :1945 A ge:79 Y S ex:Male Date:09/09/2024 Address:[address] [place] [address] Subjective: * Chief Complaints: * * Medical History: Objective: * Vitals: Assessment: * Assessment: 1. S tage 3 chronic kidney disease - N18.30 (Primary) 2 . T ype 2 diabetes mellitus with diabetic chronic kidney disease - E11.22 3 . E ssential hypertension - I10 4 . H yperlipidemia, unspecified - E78.5 Plan: * Treatment: * Billing Information: * Visit Code: 06426 Office Visit, New Pt., Level 5. * Procedure Codes: * Electronic signature of Ora Avila MD on 05/25/2025 at 09:12 PM CDT Sign off status: Pending * Provider: Belkys GARCIA MD, F.A.C.P, F.A.S.N. Date: 11/10/2023 Generated for Printing/Faxing/eTransmitting on: 0 05/25/2025 09:12 PM CDT
--- OUTSIDE RECORDS SUMMARY | 2025-05-20 01:25 | XMS_ITS | Encounter Summary ---
Author Name [facility] [place] [facility] [place] Address [address] [place] [address] Care Team Providers Care Enrollment Nurse Name Role Phone TI JOSHUA Primary Care [...] Robles's Name Patient's Relationship to Policy Robles [facility] (WNR) MEDICARE ADVANTAGE [facility] (WNR) Aug 23, 2023 [id number] [phone] MARY GRACE CASEY PATIENT [facility] (WNR) MEDICARE ADVANTAGE [facility] (WNR) Nov 21, 2021 [id number] MARY GRACE CASEY PATIENT MEDICAID (WNR) MEDICAID MEDIC AID (WNR) Sep 23, 2016 MEDICAI D [id number] VAUGHNMARY GRACE HEBERT PATIENT MEDICARE (WNR) MEDICARE (M) PART B Apr 23, 2007 PART B [id number] MARY GRACE CASEY PATIENT MEDICARE (WNR) MEDICARE (M) PART B Apr 23, 2007 PART B [id number] [phone] EMILY MARY GRACE Mcnair PATIENT MEDICARE (WNR) MEDICARE (M) PART A Dec 22, 2005 PART A [id number] MARY GRACE CASEY PATIENT MEDICARE (WNR) MEDICARE (M) PART A Dec 22, 2005 PART A [id number] [phone] EMILY McnairMARY GRACE PATIENT MEDICARE PART D (WNR) MEDICARE (M) PART D Nov 21, 2021 PART D [id number] [phone] [facility] (WNR) Nov 21, 2021 [id number] [phone] IRISHMONSEMARY GRACE Spears [facility] (WNR) MEDICARE ADVANTAGE [facility] (WNR) Nov 21, 2021 [id number] [phone] [facility] V[facility] VISION SPECT ERA VISIO N Sep 23, 2022 [id number] [phone] EMILY McnairMARY GRACE PATIENT Selected Encounter This section includes the information on record at [place] for the Encounter. Date/Time Encounter Type Encounter Description Reason Provider Source May 20, 2025 06:25 AM Outpatient Encounter [facility] Encounter Template Text not used by [place] Plan of Treatment: Future Appointments (+ 6 months) and Future Tests (+/- 45 days) The Plan of Treatment section includes future care activities for the patient from all [place] treatmentfacilities. This section includes future appointments and future orders which are active, pending or scheduled. Future Appointments This section includes appointments that were scheduled to occur 6 months from the date of the Encounter, up to a maximum of 20 appointments. The data comes from all [place] treatment facilities. Appointment Date/Time Appointment Type Appointme nt Facility Name Sep 29, 2025 02:00 PM [facility] Social History: Smoking Status (Most current) and Tobacco Use (All prior to encounter date) This section includes the most current, and the historical, smoking and tobacco- related health factors from the [place] facility where the Encounter took place. Current Smoking Status This section includes the most current smoking, or tobacco-related health factor, from the [place] facility where the Encounter took place. Date/Time Current Smoking Status Comment Tomy ity Apr 25, 2020 01:08 PM VA-TOBACCO FORMER USER [facility] Tobacco Use History This section includes a history of the smoking, or tobacco-related health factors, that were collected on or before the date of the Encounter. The data comes from the [place] facility where the Encounter took place. Date/Time Smoking Status/Tobacco Use Comment F acility Apr 25, 2020 01:08 PM VA-TOBACCO QUIT 15 YRS OR MORE [facility] Dec 10, 2002 02:47 PM LIFETIME NON-TOBACCO USER [facility] Nov 13, 2001 02:50 PM CURRENT NON-TOBACC O USER-HX OF USE [facility] Mar 18, 2001 08:35 AM CURRENT NON-TOBACC O USER-RECENTLY QUIT stopped long ago [facility] Mar 18, 2001 08:35 AM TOBACCO USE stopped long ago [facility] Dec 03, 2000 01:44 PM CURRENT NON-TOBACC O USER-HX OF USE pt quit 15 yrs ago. [facility] Dec 03, 2000 01:44 PM PREVIOUS SMOKER [facility] Advance Directives: All historical and current Section Date Range: From patient's date of to the date document was created. This section includes ALL of a patient's completed or amended [place] Advance and Rescinded Directives. The entries below indicate that a directive exists for the patient, but an actual copy is not included with this document. The data comes from all [facility]. Date Advance Directives Provider Source Jun 02, 1997 ADVANCE DIRECTIVE MARILYN BARRERA [facility] Encounter Notes: All associated encounter notes This section contains the clinical notes associated to the Encounter. Date/Time Encounter Note(s) Provider Source Apr 03, 2025 06:25 AM NONVA NOTE: LOCAL TITLE: COMMUNITY CARE-COURTNEY SELF PRESENTING CARE COORD PLAN STANDARD TITLE: NONVA NOTE DATE OF NOTE: APR 03, 2025@06:25 ENTRY DATE: MAY 20, 2025@06:25:35 AUTHOR: STEPHANIE SMITH COSIGNER: URGENCY: STATUS: COMPLETED Emergency Notification Intake Date Presenting to the Facility: Mar Method of Contact: Notified from ECR worklist Notification ID: [id number] [facility] Referral #: Closed - Submit for [facility] Hospital Name: Hospital: [facility] Address: [address] [place] [address] [address] City: [place] State: [place] Zip Code: [address] [facility] Facility Point of Contact: Name: ALAN BLUM Chief complaint: syncope Primary Diagnosis: Disposition Unknown at time of intake note entry No records pertinent to this ER Visit found in [facility]. Faxed request for records to [facility]. /january/ STEPHANIE SMITH [employer] Signed: 05/20/2025 06:27 Receipt Acknowledged By: 05/25/2025 13:29 /es/ SERA ISSA STAFF PHYSICIAN 05/21/2025 14:53 /es/ KEVIN GONZALEZN, RN REGISTERED NURSE [facility]
--- OUTSIDE RECORDS SUMMARY | 2025-05-25 13:09 | XMS_ITS | Continuity of Care Document ---
Author Name [facility] Organization [facility] Care Team Providers Care Die Maker Electronic Name Role Phone [facility] Unavailable Unavailable Problems Combined list of problems from Department of Defense and Veterans Affairs facilities. It does not include entries that were removed or entered in error. Problem Status Onset Date Problem Type Date of Resolution Comments Source Acute Deep Vein Thrombosis of Lower Limb ([facility] [id number]) Active 022 Condition Jan 18, 2022 Entered By: STONE DEL CASTILLO Comment: ER visit [facility] with Dr Max Sevilla [facility] Lumbago Active 996 Condition [facility] Adjustment disorder with mixed emotional features Active Condition [facility] Allergic rhinitis Active Condition [facility] Allergic Rhinitis ([facility] [id number]) Active Condition [facility] Bacterial urinary infection Active Condition [facility] Benign essential hypertension Active Condition [facility] Benign Prostatic Hypertrophy Without Outflow Obstruction ([facility] [id number]) Active Condition [facility] CAD - Coronary artery disease Active Condition [facility] CAD - Coronary Artery Disease ([facility] [id number]) Active Condition Jul 26, 2020 Entered By: TI JOSHUA Comment: s/p NE & PCI/stent [facility] CALCANEAL SPUR Active Condition [facility] Cardiomyopathy Active Condition [facility] Cerebral artery occlusion Active Condition [facility] Cerebral infarction Active Condition [facility] Cervical Spinal Stenosis ([facility] [id number]) Active Condition [facility] Chest pain Active Condition [facility] Chronic venous insufficiency Active Condition [facility] Congestive heart failure Active Condition [facility] Coronary arteriosclerosis Active Condition [facility] Coronary arteriosclerosis Active Condition [facility] DANDRUFF Active [facility] Dementia Active Condition [facility] Depression Active Condition [facility] Depressive disorder Active Condition [place] Diabetes Mellitus Type 2 ([facility] [id number]) Active Condition [facility] Diabetes Mellitus Type II or unspecified with Neurological Manifestations Active Condition May 30, 2013 Entered By: DAMI MAGANA NN Comment: see list of NON VA meds (glipizide / metformin) [facility] Diabetic Neuropathies (ICD-9-CM 250.60/357.2) Active Condition [facility] DISC DISPLACEMENT NOS Active Condition [facility] DJD Active Condition [facility] Dry Eye Syndrome Active Condition [facility] Dyslipidemia (ICD-9-CM 272.4) Active Condition [facility] Edema Active Condition [facility] Exposure to potentially hazardous substance Active Condition [facility] FACIAL NERVE DIS NEC Active Condition [facility] Finding related to compliance with treatment Active Condition [facility] Gastroenteritis Active Condition [facility] GERD - Gastro-Esophageal Reflux Disease ([facility] [id number]) Active Condition [facility] Gout Active Condition [facility] H/O: Stroke ([facility] [id number]) Active Condition [facility] HEADACHE Active Condition [facility] Health Maintenance Active Condition N 2008 Entered By: DAMI MAGANA NN Comment: on RX from LMD/doesn't know names/will bring list nxt visit [facility] HERED FRUCTOSE INTOLERAN Active Condition [facility] History of cholecystectomy Active Condition Apr 26, 2020 Entered By: STONE DEL CASTILLO Comment: patient reports done in early [facility] Hollen[place]st Plaque Active Condition [facility] Homeless single person Active Condition [facility] Hyperlipidemia Active Condition 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 Memory loss (ICD-9-CM 780.93) Active Condition [facility] Mood Disorder due to a General Medical Condition (ICD-9-CM 293.83) Active Condition [facility] Normal grief reaction Active Condition [facility] Numbness and tingling sensation of skin Active Condition [facility] Obesity Active Condition [facility] Obesity * (ICD-9-CM 278.00) Active Condition [facility] Osteitis deformans ([place]OMED CT 9708935) Active Condition [facility] Osteoarthritis (SCT 236636383) Active Condition Jul 26, 2020 Entered By: TI JOSHUA Comment: s/p B [facility] Osteoarthritis * (ICD-9-CM 715.90) Active Condition [facility] Other General Symptoms (ICD-9-CM 780.9) Active Condition Nov 18, 2001 Entered By: KAYCEE ISRAEL Comment: Episodic loss of consciousness [facility] OTHER SEBORRHEIC DERMATITIS Active Condition [facility] Overactive bladder Active Condition [facility] Active Condition [facility] PROLONG POSTTRAUM STRESS Active Condition [facility] PVD * (ICD-9-CM 443.9) Active Condition [facility] Relationship distress with spouse or intimate partner Active Condition [facility] Restless legs Active Condition [facility] SKIN ANOMALY NEC Active Condition [facility] Sleep Apnea (SCT [id number]) Active Condition Jul 26, 2020 Entered By: TI JOSHUA Comment: intolerant of CPAP [facility] Spinal Stenosis of Lumbar Region (SCT 56544761) Active Condition [facility] Sprain of unspecified site of knee and leg (ICD-9-CM 844.9) Active Condition [facility] SURGERY FOLLOW-UP Active Condition [facility] Tick bite Active Condition [facility] Type II diabetes mellitus uncontrolled Active Condition [facility] Unresolved Active Condition [facility] URIN TRACT INFECTION NOS Active Condition [facility] Vascular dementia (SNOMED CT 819240828) Active Condition [facility] Vision, abnormal Active Condition [facility] Vitamin D deficiency Active Condition [facility] Xeroderma Active Condition [facility] Acute conjunctivitis (ICD-9-CM 372.00) Inactive Condition 08/03/2009 [facility] Acute sinusitis (ICD-9-CM 461.9) Inactive Condition 08/03/2009 [facility] DM Type II w/o Eye Disease Inactive Condition 08/03/2009 [facility] Gastroenteritis * (ICD-9-CM 558.9) Inactive Condition 08/03/2009 [facility] Hip: arthralgia (pain on rotation, pain in groin) * (ICD-9-CM 719.45) Inactive Condition 08/03/2009 [facility] Influenza * (ICD-9-CM 487.1) Inactive Condition 08/03/2009 [facility] Diagnosis: ICD-10-CM Z51.81 Encounter for therapeutic drug level monitoring Active Diagnosis [facility] Diagnosis: ICD-10-CM I82.409 Acute embolism and thombos unsp deep vn unsp lower extremity Active Diagnosis [facility] Diagnosis: ICD-10-CM Z13.5 Encounter for screening for eye and ear disorders Active Diagnosis [facility] Diagnosis: ICD-10-CM E11.9 Type 2 diabetes mellitus without complications Active Diagnosis [facility] Diagnosis: ICD-10-CM Z79.899 Other halfway (current) drug therapy Active Diagnosis [facility] Diagnosis: ICD-10-CM I25.10 Athscl heart disease of [place] coronary artery w/o ang pctrs Active Diagnosis [facility] Diagnosis: ICD-10-CM M25.562 Pain in left knee Active Diagnosis [facility] Diagnosis: ICD-10-CM M79.605 Pain in left leg Active Diagnosis [facility] Diagnosis: ICD-10-CM F33.40 Major depressive disorder, recurrent, in remission, unsp Active Diagnosis [facility] Medications Combined list of outpatient medications from [...] DAY FOR ANTICOAG ULATION ORAL SUSPEND ED 05/21/2026 [id number] GASTON DIANE B 2024 90 [facility] APIXABAN 5MG TAB TAKE ONE-HALF TABLET BY MOUTH TWICE A DAY FOR ANTICOAG ULATION ORAL DISCONT INUED 12/31/2025 [id number] 5 AMILCAR SHERWOOD 2024 90 [facility] APIXABAN 5MG TAB TAKE ONE-HALF TABLET BY MOUTH TWICE A DAY FOR ANTICOAG ULATION ORAL DISCONT INUED 01/22/2025 [id number] BARBARA HUNT 2024 60 [facility] APIXABAN 5MG TAB TAKE ONE-HALF TABLET BY MOUTH TWICE A DAY FOR ANTICOAG ULATION ORAL DISCONT INUED (EDIT) 12/23/2024 [id number] BARBARA HUNT 2023 90 [facility] ATORVASTATI N CA 80MG TAB TAKE ONE-HALF TABLET BY MOUTH EVERY EVENING TO LOWER CHOLESTE ROL ORAL ACTIVE 12/16/2025 [id number] CHRISTOPHER ISSA DHBelkys 2024 45 [facility] DULAGLUTIDE 1.5MG/0.5ML INJ,SOLN,PE N INJECT 1.5MG/0. 5ML UNDER THE SKIN EVERY WEEK SUBCUT ANEOUS ACTIVE MARY ELLEN DEL CASTILLO 2021 [facility] DULAGLUTIDE 1.5MG/0.5ML INJ,SOLN,PE N INJECT 1.5MG (0.5ML) SUBCUTAN EOUSLY EVERY WEEK SUBCUT ANEOUS ACTIVE TARA JOSHUA 2019 [facility] EMPAGLIFLOZ IN 5MG/METFORM IN 1000MG TAB,ORAL TAKE ONE TABLET BY MOUTH TWICE A DAY ORAL ACTIVE ABUNDIOMARY ELLEN E Dilcia 2021 [facility] EMPAGLIFLOZ IN 5MG/METFORM IN 1000MG TAB,ORAL TAKE ONE TABLET BY MOUTH TWO TIMES A DAY ORAL ACTIVE TARA JOSHUA 2019 [facility] GABAPENTIN 300MG CAP TAKE ONE CAPSULE BY MOUTH TWICE A DAY FOR PAIN ORAL ACTIVE 12/16/2025 [id number] LUIS MANUEL,NI DHI 2024 180 [facility] LISINOPRIL 5MG TAB TAKE ONE-HALF TABLET BY MOUTH ONCE A DAY FOR HEART OR BLOOD PRESSURE ORAL ACTIVE 12/16/2025 [id number] 5 LUIS MANUEL,NI DHI 2024 45 [facility] OMEPRAZOLE 20MG CAP,EC TAKE ONE CAPSULE BY MOUTH TWICE A DAY TO LOWER STOMACH ACID. TAKE 30 MINUTES PRIOR TO FOOD. ORAL ACTIVE 12/16/2025 [id number] 5 LUIS MANUEL,NI DHI 2024 180 [facility] OMEPRAZOLE 20MG CAP,EC TAKE ONE CAPSULE BY MOUTH TWICE A DAY TO LOWER STOMACH ACID. TAKE 30 MINUTES PRIOR TO FOOD. ORAL DISCONT INUED 05/12/2025 [id number] 5 José Miguel TOURE 2023 180 [facility] SERTRALINE HCL 50MG TAB TAKE ONE-HALF TABLET BY MOUTH EVERY MORNING ORAL ACTIVE 12/16/2025 [id number] 5 LUIS MANUEL,NI DHI 2024 45 [facility] SERTRALINE HCL 50MG TAB TAKE ONE-HALF TABLET BY MOUTH EVERY MORNING FOR DEPRESSI ON ORAL DISCONT INUED 06/24/2025 [id number] 5 ROGER ESCALERA 2023 45 [facility] SERTRALINE HCL 50MG TAB TAKE ONE-HALF TABLET BY MOUTH EVERY MORNING FOR DEPRESSI ON ORAL DISCONT INUED 12/17/2024 [id number] ROGER ESCALERA 2023 45 [facility] TAMSULOSIN HCL 0.4MG CAP TAKE ONE CAPSULE BY MOUTH EVERY EVENING APPROXIM ATELY 30 MINUTES AFTER THE SAME MEAL EACH DAY (FOR PROSTATE ) ORAL ACTIVE 12/16/2025 [id number] CHRISTOPHER ISSA DHI [address] [facility] Allergies, Adverse Reactions, Alerts Combined list of allergies from Department of Defense and Veterans Affairs facilities. It does not include entries that were removed or entered in error. Substance Category Reaction Severity Reaction type Status Date Reported Comments Source AMITRIPTYLIN E Propensity to adverse reactions to drug (finding) Physical aggression active 2 [facility] ASPIRIN Propensity to adverse reactions to drug (finding) active 5 [facility] METFORMIN Propensity to adverse reactions to drug (finding) Diarrhea active 3 [facility] MORPHINE Propensity to adverse reactions to drug (finding) Physical aggression active 2 [facility] OXCARBAZEPIN E Propensity to adverse reactions to drug (finding) Psychotic disorder active 2 [facility] PENICILLIN Propensity to adverse reactions to drug (finding) active 5 [facility] PENICILLIN Propensity to adverse reactions to drug (finding) HIVES active 3 [facility] PENICILLIN Propensity to adverse reactions to drug (finding) Urticaria active [address] [facility] TRAZODONE Propensity to adverse reactions to drug (finding) Bleeding active 2 [facility] Immunizations Combined list of available immunizations from the Department of Defense and Veterans Affairs facilities. Immunization Series Date Given Administered By Site Reaction Lot Number CVX Code Drug Environmental Laboratory Technician Status Comments Source INFLUENZA, UNSPECIFIED FORMULATION 2020 88 complet ed [facility] 15 INFLUENZA, SEASONAL, INJECTABLE, PRESERVATIVE FREE 2016 140 complet ed [facility] PNEUMOCOCCAL CONJUGATE PCV 13 2016 133 complet ed [facility] INFLUENZA, UNSPECIFIED FORMULATION 2014 88 complet ed NOVARTIS/ [id number]/ [facility] PNEUMOCOCCAL CONJUGATE PCV 13 2014 133 complet ed [facility] INFLUENZA, UNSPECIFIED FORMULATION 2013 88 complet ed as per [facility] PNEUMOVAX (HISTORICAL) 2013 33 complet ed [facility] INFLUENZA, UNSPECIFIED FORMULATION 2013 88 complet ed CSL BIOTHERAP IES/[id number] [place] [facility] INFLUENZA, UNSPECIFIED FORMULATION 2012 88 complet ed Glaxo-Kli ne/7SE5/ 03-22- 4 [place] INFLUENZA (HISTORICAL) 2011 88 complet ed Novartis/ Lot# [id number] [facility] TDAP 2011 115 complet ed Sanofi Pasteur/L ot# [id number] [facility] INFLUENZA (HISTORICAL) 2011 88 complet ed [facility] NOVEL INFLUENZA-H1N 1-09, ALL FORMULATIONS 2009 128 complet ed Novartis/ Lot# [id number] [facility] INFLUENZA (HISTORICAL) 2008 NONE 88 complet ed Completed Series, Left Deltoid [facility], [place] [facility] PNEUMOCOCCAL POLYSACCHARID E PPV23 2008 33 complet ed Right Deltoid [facility] INFLUENZA (HISTORICAL) 2007 88 complet ed [place] INFLUENZA (HISTORICAL) 2006 88 complet ed Left Deltoid [facility] INFLUENZA (HISTORICAL) 2005 88 complet ed Left Deltoid [facility], [facility] INFLUENZA (HISTORICAL) 2004 88 complet ed Left Deltoid [facility], [facility] INFLUENZA (HISTORICAL) 2003 88 complet ed Left Deltoid [facility], [facility] PNEUMOCOCCAL POLYSACCHARID E PPV23 2003 33 complet ed Left Deltoid [facility], [facility] INFLUENZA (HISTORICAL) 2002 88 complet ed Left Deltoid [facility], [facility] INFLUENZA (HISTORICAL) 2000 88 complet ed [facility] TD(ADULT) UNSPECIFIED FORMULATION 2000 139 complet ed [facility] A, [facility] TETANUS TOXOID, UNSPECIFIED FORMULATION 1997 KAYCEE LINDSEY X 112 complet ed [facility] N Results Combined list [...] Dec 11, 2024 04:22 PM Reporting Lab: [facility] [address] [place] [phone] Performing Lab: [facility] [address] [facility] [phone] [facility] LIPID PANEL (STL) CHOLESTEROL [MASS/VOLUM E] IN SERUM OR PLASMA 90 mg/dL 0 - 200 12/16 Specimen Type: PLASMA Comment: No hemolysis noted. Ordering Provider: LIZA ISSA Report Released Date/Time: Dec 11, 2024 04:22 PM Reporting Lab: [facility] [phone] Performing Lab: [facility] [address] [facility] [phone] [facility] LIPID PANEL (STL) TRIGLYCERID E [MASS/VOLUM E] IN SERUM OR PLASMA 63 mg/dL 0 - 150 12/16 Specimen Type: PLASMA Comment: No hemolysis noted. Ordering Provider: LIZA ISSA Report Released Date/Time: Dec 11, 2024 04:22 PM Reporting Lab: [facility] [address] [facility] [phone] Performing Lab: [facility] [address] [facility] [phone] [facility] LIPID PANEL (STL) CHOLESTEROL IN LDL [MASS/VOLUM E] IN SERUM OR PLASMA BY CALCULATION 32 mg/dL 12/16 Specimen Type: PLASMA Comment: No hemolysis noted. Ordering Provider: LIZA ISSA Report Released Date/Time: Dec 11, 2024 04:22 PM Reporting Lab: [place] [address] [facility] [phone] Performing Lab: [facility] [address] [place] [phone] [facility] LIPID PANEL (STL) CHOLESTEROL IN HDL [MASS/VOLUM E] IN SERUM OR PLASMA 45 mg/dL 40 12/16 Specimen Type: PLASMA Comment: No hemolysis noted. Ordering Provider: LIZA ISSA Report Released Date/Time: Dec 11, 2024 04:22 PM Reporting Lab: [address] [phone] Performing Lab: [address] [phone] [facility] MICRAL/CR EAT PROFILE (STL) ALBUMIN [MASS/VOLUM E] IN URINE 226.8 mg/L 12/16 Specimen Type: URINE No comment entered. Ordering Provider: LIZA ISSA Report Released Date/Time: Dec 11, 2024 04:22 PM Reporting Lab: [address] [phone] Performing Lab: [address] [phone] [facility] MICRAL/CR EAT PROFILE (STL) ALBUMIN/CRE ATININE [MASS RATIO] IN URINE 422 mg/g 0 - 29 12/16 H Specimen Type: URINE No comment entered. Ordering Provider: LIZA ISSA Report Released Date/Time: Dec 11, 2024 04:22 PM Reporting Lab: [address] [phone] Performing Lab: [address] [phone] [facility] MICRAL/CR EAT PROFILE (STL) CREATININE [MASS/VOLUM E] IN URINE 53.7 mg/dL 63 - 166 12/16 L Specimen Type: URINE No comment entered. Ordering Provider: LIZA ISSA Report Released Date/Time: Dec 11, 2024 04:22 PM Reporting Lab: [facility] [address] [facility] [phone] Performing Lab: [facility] [address] [place] [phone] [facility] COMPREHEN SIVE METABOLIC PANEL CREATININE [MASS/VOLUM E] IN SERUM OR PLASMA 0.90 mg/dL 0.7 - 1.3 12/16 Specimen Type: PLASMA Comment: No hemolysis noted. Ordering Provider: LIZA ISSA Report Released Date/Time: Dec 11, 2024 04:22 PM Reporting Lab: [place] [address] [facility] [phone] Performing Lab: [address] [phone] [facility] COMPREHEN SIVE METABOLIC PANEL UREA NITROGEN [MASS/VOLUM E] IN SERUM OR PLASMA 19.8 mg/dL 9.0 - 25.0 12/16 Specimen Type: PLASMA Comment: No hemolysis noted. Ordering Provider: LIZA ISSA Report Released Date/Time: Dec 11, 2024 04:22 PM Reporting Lab: [place] [address] [facility] [phone] Performing Lab: [facility] [address] [facility] [address] [facility] COMPREHEN SIVE METABOLIC PANEL GLUCOSE [MASS/VOLUM E] IN SERUM OR PLASMA 167 mg/dL 72 - 99 12/16 H Specimen Type: PLASMA Comment: No hemolysis noted. Ordering Provider: LIZA ISSA Report Released Date/Time: Dec 11, 2024 04:22 PM Reporting Lab: [facility] [address] [facility] [phone] Performing Lab: [address] [phone] [facility] COMPREHEN SIVE METABOLIC PANEL SODIUM [MOLES/VOLU ME] IN SERUM OR PLASMA 139 meq/L 136 - 145 12/16 Specimen Type: PLASMA Comment: No hemolysis noted. Ordering Provider: LIZA ISSA Report Released Date/Time: Dec 11, 2024 04:22 PM Reporting Lab: [facility] [address] [facility] [phone] Performing Lab: [facility] [address] [place] [phone] [facility] COMPREHEN SIVE METABOLIC PANEL POTASSIUM [MOLES/VOLU ME] IN SERUM OR PLASMA 4.0 meq/L 3.5 - 5 12/16 Specimen Type: PLASMA Comment: No hemolysis noted. Ordering Provider: LIZA ISSA Report Released Date/Time: Dec 11, 2024 04:22 PM Reporting Lab: [address] [phone] Performing Lab: [address] [phone] [place] [address] COMPREHEN SIVE METABOLIC PANEL CHLORIDE [MOLES/VOLU ME] IN SERUM OR PLASMA 102 meq/L 98 - 107 12/16 Specimen Type: PLASMA Comment: No hemolysis noted. Ordering Provider: LIZA ISSA Report Released Date/Time: Dec 11, 2024 04:22 PM Reporting Lab: [facility] [address] [place] [phone] Performing Lab: [address] [phone] [facility] COMPREHEN SIVE METABOLIC PANEL CARBON DIOXIDE, TOTAL [MOLES/VOLU ME] IN SERUM OR PLASMA 26 meq/L 22 - 31 12/16 Specimen Type: PLASMA Comment: No hemolysis noted. Ordering Provider: LIZA ISSA Report Released Date/Time: Dec 11, 2024 04:22 PM Reporting Lab: [facility] [address] [place] [phone] Performing Lab: [address] [phone] [facility] COMPREHEN SIVE METABOLIC PANEL CALCIUM [MASS/VOLUM E] IN SERUM OR PLASMA 10.0 mg/dL 8.4 - 10.4 12/16 Specimen Type: PLASMA Comment: No hemolysis noted. Ordering Provider: LIZA ISSA Report Released Date/Time: Dec 11, 2024 04:22 PM Reporting Lab: [facility] [address] [facility] [phone] Performing Lab: [facility] [address] [facility] [phone] [facility] COMPREHEN SIVE METABOLIC PANEL PROTEIN [MASS/VOLUM E] IN SERUM OR PLASMA 7.9 g/dL 6 - 8.6 12/16 Specimen Type: PLASMA Comment: No hemolysis noted. Ordering Provider: LIZA ISSA Report Released Date/Time: Dec 11, 2024 04:22 PM Reporting Lab: [place] [address] [facility] [phone] Performing Lab: [facility] [address] [facility] [phone] [facility] COMPREHEN SIVE METABOLIC PANEL ALBUMIN [MASS/VOLUM E] IN SERUM OR PLASMA 4.2 g/dL 3.4 - 5 12/16 Specimen Type: PLASMA Comment: No hemolysis noted. Ordering Provider: LIZA ISSA Report Released Date/Time: Dec 11, 2024 04:22 PM Reporting Lab: [facility] [address] [facility] [address] Performing Lab: [facility] [address] [facility] [phone] [facility] COMPREHEN SIVE METABOLIC PANEL BILIRUBIN.T OTAL [MASS/VOLUM E] IN SERUM OR PLASMA 0.5 mg/dL 0.2 - 1.2 12/16 Specimen Type: PLASMA Comment: No hemolysis noted. Ordering Provider: LIZA ISSA Report Released Date/Time: Dec 11, 2024 04:22 PM Reporting Lab: [facility] [address] [facility] [address] Performing Lab: [facility] [address] [place] [address] [facility] COMPREHEN SIVE METABOLIC PANEL ALKALINE PHOSPHATASE [ENZYMATIC ACTIVITY/VO LUME] IN SERUM OR PLASMA 133 U/L 40 - 150 12/16 Specimen Type: PLASMA Comment: No hemolysis noted. Ordering Provider: LIZA ISSA Report Released Date/Time: Dec 11, 2024 04:22 PM Reporting Lab: [facility] [address] [facility] [address] Performing Lab: [facility] [address] [facility] [address] [facility] COMPREHEN SIVE METABOLIC PANEL ASPARTATE AMINOTRANSF ERASE [ENZYMATIC ACTIVITY/VO LUME] IN SERUM OR PLASMA 27 U/L 5 - 34 12/16 Specimen Type: PLASMA Comment: No hemolysis noted. Ordering Provider: LIZA ISSA Report Released Date/Time: Dec 11, 2024 04:22 PM Reporting Lab: [place] [address] [facility] [address] Performing Lab: [facility] [address] [facility] [address] [facility] COMPREHEN SIVE METABOLIC PANEL ALANINE AMINOTRANSF ERASE [ENZYMATIC ACTIVITY/VO LUME] IN SERUM OR PLASMA 16 U/L 8 - 40 12/16 Specimen Type: PLASMA Comment: No hemolysis noted. Ordering Provider: LIZA ISSA Report Released Date/Time: Dec 11, 2024 04:22 PM Reporting Lab: [place] [address] [facility] [address] Performing Lab: [facility] [address] [facility] [address] [facility] COMPREHEN SIVE METABOLIC PANEL GLOMERULAR FILTRATION RATE/1.73 SQ M.PREDICTED [VOLUME RATE/AREA] IN SERUM, PLASMA OR BLOOD BY CREATININE- BASED FORMULA (CKD-EPI 2020) 86.9 60 12/16 Specimen Type: PLASMA Comment: No hemolysis noted. Ordering Provider: LIZA ISSA Report Released Date/Time: Dec 11, 2024 04:22 PM Reporting Lab: [facility] [address] [facility] [address] Performing Lab: [facility] [address] [facility] [address] [facility] HGA1C HEMOGLOBIN A1C/HEMOGLO BIN.TOTAL IN BLOOD 7.1 4.0 - 6.0 08/11 H Specimen Type: BLOOD No comment entered. Ordering Provider: JEANINE CARDENAS Report Released Date/Time: Aug 11, 2024 02:09 PM Reporting Lab: [address] [address] Performing Lab: [address] [address] [facility] LIPID PANEL (STL) CHOLESTEROL [MASS/VOLUM E] IN SERUM OR PLASMA 98 mg/dL 0 - 200 08/11 Specimen Type: PLASMA Comment: No hemolysis noted. Ordering Provider: JEANINE CARDENAS Report Released Date/Time: Aug 11, 2024 02:09 PM Reporting Lab: [address] [address] Performing Lab: [address] [address] [facility] LIPID PANEL (STL) TRIGLYCERID E [MASS/VOLUM E] IN SERUM OR PLASMA 51 mg/dL 0 - 150 08/11 Specimen Type: PLASMA Comment: No hemolysis noted. Ordering Provider: JEANINE CARDENAS Report Released Date/Time: Aug 11, 2024 02:09 PM Reporting Lab: [address] [address] Performing Lab: [facility] [address] [place] [address] [facility] LIPID PANEL (STL) CHOLESTEROL IN LDL [MASS/VOLUM E] IN SERUM OR PLASMA BY CALCULATION 43 mg/dL 08/11 Specimen Type: PLASMA Comment: No hemolysis noted. Ordering Provider: JEANINE CARDENAS Report Released Date/Time: Aug 11, 2024 02:09 PM Reporting Lab: [address] [address] Performing Lab: [address] [address] [facility] LIPID PANEL (STL) CHOLESTEROL IN HDL [MASS/VOLUM E] IN SERUM OR PLASMA 45 mg/dL 40 08/11 Specimen Type: PLASMA Comment: No hemolysis noted. Ordering Provider: JEANINE CARDENAS Report Released Date/Time: Aug 11, 2024 02:09 PM Reporting Lab: [address] [address] Performing Lab: [address] [address] [facility] TSH (MA-PB) THYROTROPIN [UNITS/VOLU ME] IN SERUM OR PLASMA 3.281 u[IU]/ mL 0.47 - 5 08/11 Specimen Type: SERUM No comment entered. Ordering Provider: JEANINE CARDENAS Report Released Date/Time: Aug 11, 2024 02:09 PM Reporting Lab: [address] [address] Performing Lab: [address] [address] [facility] VITAMIN D, 25-HYDROX Y 25-HYDROXYV ITAMIN D3 [MASS/VOLUM E] IN SERUM OR PLASMA 31.4 ng/mL 30 - 96 08/11 Specimen Type: SERUM No comment entered. Ordering Provider: JEANINE CARDENAS Report Released Date/Time: Aug 11, 2024 02:09 PM Reporting Lab: [address] [address] Performing Lab: [place] [address] [facility] [address] [facility] B12 COBALAMIN (VITAMIN B12) [MASS/VOLUM E] IN SERUM OR PLASMA 400 pg/mL 213 - 816 08/11 Specimen Type: SERUM No comment entered. Ordering Provider: JEANINE CARDENAS Report Released Date/Time: Aug 11, 2024 02:09 PM Reporting Lab: [address] [address] Performing Lab: [address] [address] [facility] COMPREHEN SIVE METABOLIC PANEL CREATININE [MASS/VOLUM E] IN SERUM OR PLASMA 1.18 mg/dL 0.7 - 1.3 08/11 Specimen Type: PLASMA Comment: No hemolysis noted. Ordering Provider: JEANINE CARDENAS Report Released Date/Time: Aug 11, 2024 02:09 PM Reporting Lab: [facility] [address] [place] [phone] Performing Lab: [facility] [address] [facility] [address] [facility] COMPREHEN SIVE METABOLIC PANEL UREA NITROGEN [MASS/VOLUM E] IN SERUM OR PLASMA 23.5 mg/dL 9.0 - 25.0 08/11 Specimen Type: PLASMA Comment: No hemolysis noted. Ordering Provider: JEANINE CARDENAS Report Released Date/Time: Aug 11, 2024 02:09 PM Reporting Lab: [address] [address] Performing Lab: [facility] [address] [facility] [address] [facility] COMPREHEN SIVE METABOLIC PANEL GLUCOSE [MASS/VOLUM E] IN SERUM OR PLASMA 94 mg/dL 72 - 99 08/11 Specimen Type: PLASMA Comment: No hemolysis noted. Ordering Provider: JEANINE CARDENAS Report Released Date/Time: Aug 11, 2024 02:09 PM Reporting Lab: [facility] [address] Performing Lab: [facility] [address] [facility] [address] [facility] COMPREHEN SIVE METABOLIC PANEL SODIUM [MOLES/VOLU ME] IN SERUM OR PLASMA 139 meq/L 136 - 145 08/11 Specimen Type: PLASMA Comment: No hemolysis noted. Ordering Provider: JEANINE CARDENAS Report Released Date/Time: Aug 11, 2024 02:09 PM Reporting Lab: [facility] [address] [place] [address] Performing Lab: [facility] [address] [facility] [address] [facility] COMPREHEN SIVE METABOLIC PANEL POTASSIUM [MOLES/VOLU ME] IN SERUM OR PLASMA 4.2 meq/L 3.5 - 5 08/11 Specimen Type: PLASMA Comment: No hemolysis noted. Ordering Provider: JEANINE CARDENAS Report Released Date/Time: Aug 11, 2024 02:09 PM Reporting Lab: [address] [address] Performing Lab: [facility] [address] [place] [phone] [facility] COMPREHEN SIVE METABOLIC PANEL CHLORIDE [MOLES/VOLU ME] IN SERUM OR PLASMA 105 meq/L 98 - 107 08/11 Specimen Type: PLASMA Comment: No hemolysis noted. Ordering Provider: JEANINE CARDENAS Report Released Date/Time: Aug 11, 2024 02:09 PM Reporting Lab: [address] [address] Performing Lab: [address] [address] [facility] COMPREHEN SIVE METABOLIC PANEL CARBON DIOXIDE, TOTAL [MOLES/VOLU ME] IN SERUM OR PLASMA 24 meq/L 22 - 31 08/11 Specimen Type: PLASMA Comment: No hemolysis noted. Ordering Provider: JEANINE CARDENAS Report Released Date/Time: Aug 11, 2024 02:09 PM Reporting Lab: [address] [address] Performing Lab: [facility] [address] [place] [phone] [facility] COMPREHEN SIVE METABOLIC PANEL CALCIUM [MASS/VOLUM E] IN SERUM OR PLASMA 9.7 mg/dL 8.4 - 10.4 08/11 Specimen Type: PLASMA Comment: No hemolysis noted. Ordering Provider: JEANINE CARDENAS Report Released Date/Time: Aug 11, 2024 02:09 PM Reporting Lab: [address] [address] Performing Lab: [place] [address] [facility] [address] [facility] COMPREHEN SIVE METABOLIC PANEL PROTEIN [MASS/VOLUM E] IN SERUM OR PLASMA 7.7 g/dL 6 - 8.6 08/11 Specimen Type: PLASMA Comment: No hemolysis noted. Ordering Provider: JEANINE CARDENAS Report Released Date/Time: Aug 11, 2024 02:09 PM Reporting Lab: [facility] [address] [facility] [address] Performing Lab: [place] [address] [facility] [address] [facility] COMPREHEN SIVE METABOLIC PANEL ALBUMIN [MASS/VOLUM E] IN SERUM OR PLASMA 3.9 g/dL 3.4 - 5 08/11 Specimen Type: PLASMA Comment: No hemolysis noted. Ordering Provider: JEANINE CARDENAS Report Released Date/Time: Aug 11, 2024 02:09 PM Reporting Lab: [place] [address] [facility] [address] Performing Lab: [facility] [address] [facility] [address] [facility] COMPREHEN SIVE METABOLIC PANEL BILIRUBIN.T OTAL [MASS/VOLUM E] IN SERUM OR PLASMA 0.5 mg/dL 0.2 - 1.2 08/11 Specimen Type: PLASMA Comment: No hemolysis noted. Ordering Provider: JEANINE CARDENAS Report Released Date/Time: Aug 11, 2024 02:09 PM Reporting Lab: [facility] [address] [facility] [address] Performing Lab: [facility] [address] [facility] [address] [facility] COMPREHEN SIVE METABOLIC PANEL ALKALINE PHOSPHATASE [ENZYMATIC ACTIVITY/VO LUME] IN SERUM OR PLASMA 132 U/L 40 - 150 08/11 Specimen Type: PLASMA Comment: No hemolysis noted. Ordering Provider: JEANINE CARDENAS Report Released Date/Time: Aug 11, 2024 02:09 PM Reporting Lab: [facility] [address] Performing Lab: [facility] [address] [facility] [address] [facility] COMPREHEN SIVE METABOLIC PANEL ASPARTATE AMINOTRANSF ERASE [ENZYMATIC ACTIVITY/VO LUME] IN SERUM OR PLASMA 20 U/L 5 - 34 08/11 Specimen Type: PLASMA Comment: No hemolysis noted. Ordering Provider: JEANINE CARDENAS Report Released Date/Time: Aug 11, 2024 02:09 PM Reporting Lab: [facility] [address] [facility] [address] Performing Lab: [facility] [address] [facility] [address] [facility] COMPREHEN SIVE METABOLIC PANEL ALANINE AMINOTRANSF ERASE [ENZYMATIC ACTIVITY/VO LUME] IN SERUM OR PLASMA 17 U/L 8 - 40 08/11 Specimen Type: PLASMA Comment: No hemolysis noted. Ordering Provider: JEANINE CARDENAS Report Released Date/Time: Aug 11, 2024 02:09 PM Reporting Lab: [facility] [address] [facility] [address] Performing Lab: [facility] [address] [facility] [address] [facility] COMPREHEN SIVE METABOLIC PANEL GLOMERULAR FILTRATION RATE/1.73 SQ M.PREDICTED [VOLUME RATE/AREA] IN SERUM, PLASMA OR BLOOD BY CREATININE- BASED FORMULA (CKD-EPI 2020) 63.2 60 08/11 Specimen Type: PLASMA Comment: No hemolysis noted. Ordering Provider: JEANINE CARDENAS Report Released Date/Time: Aug 11, 2024 02:09 PM Reporting Lab: [facility] [address] [facility] [address] Performing Lab: [place] [address] [facility] [address] [facility] Vital Signs Combined list of inpatient and outpatient Vital Signs from Department of Defense and Veterans Affairs, ranging from 12 months to all on record, depending upon the facility. Vital Sign Value Date Comments Source SYSTOLIC BLOOD PRESSURE 139 12/16/19 25 12:52:02 [facility] DIASTOLIC BLOOD PRESSURE 74 025 12:52:02 [facility] PULSE OXIMETRY 96 12/15/2024 12:52:02 [facility] WEIGHT 215.8 12/15/2024 12:52:02 [facility] BMI 29 kg/m2 12/15/2024 12:52:02 [facility] PAIN 0 12/15/2024 12:52:02 [facility] HEIGHT 72 12/15/2024 12:52:02 [facility] TEMPERATURE 98 12/15/2024 12:52:02 [facility] PULSE 63 12/15/2024 12:52:02 [facility] RESPIRATION 16 12/15/2024 12:52:02 [facility] SYSTOLIC BLOOD PRESSURE 135 08/11/20 13:38:00 [facility] DIASTOLIC BLOOD PRESSURE 70 024 13:38:00 [facility] PULSE OXIMETRY 97 08/11/2024 13:38:00 [facility] WEIGHT 198 08/11/2024 13:38:00 [facility] BMI 26 kg/m2 08/11/2024 13:38:00 [facility] PAIN 0 08/11/2024 13:38:00 [facility] HEIGHT 73 08/11/2024 13:38:00 [facility] TEMPERATURE 98 08/11/2024 13:38:00 [facility] PULSE 65 08/11/2024 13:38:00 [facility] RESPIRATION 16 08/11/2024 13:38:00 [facility] Encounters Combined list of: 1) Encounters from Department of Veterans Affairs facilities going backup to the last 18 months, not all VA inpatient encounters are included; 2) Encounters from the Department of [facility] facilities going backup to 280 months. Location Location Details Encounter Type Encounter Number Reason For Visit Attending Provider ADM Date DC Date Status Disposition Source [facility] Outpatient Encounter [id number] 12/01 [facility] Outpatient Encounter [id number] JILL MARTINES 12[facility]01 [facility] Encounter [id number] 12/08 [facility] Encounter [id number] 12/08 [facility] Outpatient Encounter [id number] Gabe BOLDEN 12/12 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, recurre nt, in remissi on, unsp ESCALERA,12/16 [facility] EMERGENCY DEPT VISIT MOD MDM [id number] Diagnos is: ICD-10- CM M79.605 Pain in left leg PRECIOUS DIAL S 12/19 [facility] Outpatient Encounter [id number] PRECIOUS DIAL S 12/19 [facility] GAIT TRAINING THERAPY [id number] Diagnos is: ICD-10- CM M25.562 Pain in left knee RAMY JUDGE L 12/19 [facility] MTMS BY PHARM EST 15 MIN [id number] Diagnos is: ICD-10- CM Z51.81 Encount er for therape utic drug level monitor BARBARA Hand 12/22 [facility] Outpatient Encounter [id number] 12/22 [facility] En[facility] [id number] 12/23 [facility] OFFICE O/P EST LOW 20 MIN [id number] Diagnos is: ICD-10- CM I25.10 Athscl heart disease of [place] coronar y artery w/o ang pctrs DAVID TOURE 12/31 [facility] En[facility] [id number] PATTIE MORENO 01/06 [facility] [facility] Outpatient Encounter [id number] 01/12 [facility] En[facility] [id number] 01/26 [facility] En[facility] [id number] 01/26 [facility] Outpatient Encounter [id number] 01/27 [facility] [place] [facility] Outpatient Encounter [id number] KAIA SUAREZ 02/03 [facility] [facility] Outpatient Encounter [id number] 02/24 [place] [facility] Outpatient Encounter [id number] 02/25 [facility] Outpatient Encounter [id number] 02/26 [facility] Outpatient Encounter [id number] 02/26 [facility] Outpatient Encounter [id number] GLEN PARADA 03/05 [facility] Outpatient Encounter [id number] 05/11 [facility] Outpatient Encounter [id number] 07/01 [facility] Outpatient Encounter [id number] 07/15 [facility] Outpatient Encounter [id number] CAIO GALVAN 07/17 [facility] Outpatient Encounter [id number] 07/20 [facility] MTMS BY PHARM ADVISORY SERVICES ASSOCIATE 15 MIN [id number] Diagnos is: ICD-10- CM 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 ELMER CERNA 07/23 [facility] Outpatient Encounter [id number] 07/27 [facility] Outpatient Encounter [id number] RONALD JOHNSON 07/28 [facility] Outpatient Encounter [id number] 08/05 [facility] Outpatient Encounter [id number] JEANINE CARDENAS D 08/05 [facility] Outpatient Encounter [id number] JEANINE CARDENAS 08/09 [facility] Outpatient Encounter [id number] SIMIN LEE C 08/11 [facility] Outpatient Encounter [id number] JEANINE CARDENAS D 08/12 [facility] Outpatient Encounter [id number] SIMIN LEE 08/21 [facility] Outpatient Encounter [id number] 08/23 [facility] Outpatient Encounter [id number] DAVID TOURE 08/25 [facility] En[facility] [id number] JEANINE CARDENAS 08/25 [facility] Outpatient Encounter [id number] MYA FOSTER 10/03 [facility] Outpatient Encounter [id number] 11/22 [facility] Outpatient Encounter [id number] 12/04 [facility] Outpatient Encounter [id number] SIMIN LEE 12/07 [facility] Outpatient Encounter [id number] JEANINE CARDENAS 12/07 [facility] Outpatient Encounter [id number] 12/09 [facility] Outpatient Encounter [id number] 12/15 [facility] Outpatient Encounter [id number] 12/15 [facility] OFFICE O/P EST MOD 30 MIN [id number] Diagnos is: ICD-10- CM E11.9 Type 2 diabete s mellitu s without complic ations LIZA ISSA 12/15 [facility] Outpatient Encounter [id number] 12/15 [facility] IMG RTA DETCJ/MNTR DS STAFF [id number] Diagnos is: ICD-10- CM Z13.5 Encount er for screeni ng for eye and ear disorde rs SIMIN LEE 12/15 [facility] IMG RTA DETC/MNTR DS PHY/QHP [id number] Diagnos is: ICD-10- CM Z13.5 Encount er for screeni ng for eye and ear disorde rs SIMIN LEE 12/15 [facility] NQHP OL DIG ASSMT&MGMT 5-10 [id number] Diagnos is: ICD-10- CM Z51.81 Encount er for therape utic drug level monitor PAM Sin 12/28 [facility] NQHP OL DIG ASSMT&MGMT 5-10 [id number] Diagnos is: ICD-10- CM I82.409 Acute embolis m and thombos unsp deep vn unsp lower extremi ty PAM LICONA 12/30 [facility] MTMS BY PHARM EST 15 MIN [id number] Diagnos is: ICD-10- CM Z51.81 Encount er for therape utic drug level monitor RETA Alicea 01/07 [facility] Outpatient Encounter [id number] 03/22 [facility] Outpatient Encounter [id number] FILOMENA VALENTIN 03/25 [facility] Outpatient Encounter [id number] LZIA ISSA 05/20 [facility] MTMS BY PHARM EST 15 MIN [id number] Diagnos is: ICD-10- CM Z51.81 Encount er for therape utic drug level monitor RETA Alicea 05/20 [facility] Social History Combined list of available smoking, tobacco, and other social history from Department of Defense and Veterans Affairs facilities. Social History Type Response Date Comment Source Tobacco smoking status NHIS VA-[facility]BACCO FORMER USER 07/23/2024 [facility] History of tobacco use VA-TOBACCO QUIT 15 YRS OR MORE 07/23/2024 [facility] History of tobacco use VA-TOBACCO FORMER USER 04/09/2023 [facility] History of tobacco use VA-TOBACCO NEVER USED 01/10/2022 [facility] History of tobacco use VA-TOBACCO FORMER USER 09/04/2021 [facility] History of tobacco use VA-TOBACCO FORMER USER 07/26/2020 [facility] History of tobacco use VA-TOBACCO QUIT 15 YRS OR MORE 04/25/2020 [facility] History of tobacco use VA-TOBACCO NEVER USED 04/08/2019 [facility] History of tobacco use QUIT TOBACCO >7 YEARS AGO 10/17/2016 [facility] History of tobacco use V7-NO TOBACCO USE > 7 YEARS 03/21/2016 38 YEARS [facility] History of tobacco use NON-TOBACCO USER 04/05/2015 [facility] History of tobacco use V7-NO TOBACCO USE > 7 YEARS 04/05/2015 [facility] History of tobacco use V7-LIFETIME TOBACCO NON USER 07/19/2014 [facility] History of tobacco use V7-LIFETIME TOBACCO NON USER 05/30/2013 [facility] History of tobacco use V7-NO TOBACCO USE > 7 YEARS 06/03/2012 [facility] History of tobacco use V7-LIFETIME TOBACCO NON USER 05/09/2011 [facility] History of tobacco use V7-NO TOBACCO USE > 7 YEARS 06/03/2009 [facility] History of tobacco use V7-TOBACCO QUIT DATE 03/09/2008 [facility] History of tobacco use V7-HX TOBACCO USER >12 MONTHS <7 YEARS 03/09/2008 [facility] History of tobacco use V7-LIFETIME TOBACCO NON USER 01/31/2007 [facility] History of tobacco use V7-LIFETIME NON/TOBACCO USER 01/01/2006 [facility] History of tobacco use LIFETIME NON-TOBACCO USER 12/10/2002 [facility] History of tobacco use CURRENT NON-TOBACCO USER-HX OF USE 11/13/2001 [facility] History of tobacco use TOBACCO USE 03/18/2001 stopped long ago [facility] History of tobacco use PREVIOUS SMOKER 12/03/2000 [facility] Plan of Care List of future care activities from [facility] facilities. Additional future care activities may be listed in the Assessment and Plan section. Date/Time Care Activity Care Activity Detail Facili ty 09/29/2025 AMBULATORY - MEDICINE AMBULATORY - MEDICI [facility] Advance Directives List of completed, amended, or rescinded Advance Directives on record at Department of [facility] facilities. An actual copy of the Directive is not included. Date Advance Directive Provider Source 06/02/1997 ADVANCE DIRECTIVE MARILYN BARRERA [facility]
--- OUTSIDE RECORDS SUMMARY | 2025-05-25 13:09 | XMS_ITS | Continuity of Care Document ---
Author Name [facility] Organization [facility] Care Team Providers Care Bean Weigher Name Role Phone [facility] Unavailable Unavailable Problems Combined list of problems from Department of Defense and Veterans Affairs facilities. It does not include entries that were removed or entered in error. Problem Status Onset Date Problem Type Date of Resolution Comments Source Acute Deep Vein Thrombosis of Lower Limb ([facility] [id number]) Active 022 Condition Jan 18, 2022 Entered By: STONE DEL CASTILLO Comment: ER visit [facility] with Dr Max Sevilla [facility] Lumbago Active 996 Condition [facility] Adjustment disorder with mixed emotional features Active Condition [facility] Allergic rhinitis Active Condition [facility] Allergic Rhinitis ([facility] [id number]) Active Condition [facility]acterial urinary infection Active Condition [facility] Benign essential hypertension Active Condition [facility] Benign Prostatic Hypertrophy Without Outflow Obstruction ([facility] [id number]) Active Condition [facility] CAD - Coronary artery disease Active Condition [facility] CAD - Coronary Artery Disease ([facility] [id number]) Active Condition Jul 26, 2020 Entered By: TI JOSUHA Comment: s/p MS & PCI/stent [facility] CALCANEAL SPUR Active Condition [facility] Cardiomyopathy Active Condition [facility] Cerebral artery occlusion Active Condition [facility] Cerebral infarction Active Condition [facility] Cervical Spinal Stenosis ([facility] [id number]) Active Condition [facility] Chest [facility] Active Condition [facility] Chronic venous insufficiency Active Condition [facility] Congestive heart failure Active Condition [facility] Coronary arteriosclerosis Active Condition [facility] Coronary arteriosclerosis Active Condition [facility] DANDRUFF Active [facility] Dementia Active Condition [facility] Depression Active Condition [facility] Depressive disorder Active Condition [facility] Diabetes Mellitus Type 2 ([facility] [id number]) Active Condition [facility] Diabetes Mellitus Type II or unspecified with Neurological Manifestations Active Condition May 30, 2013 Entered By: DAMI MAGANA NN Comment: see list of NON VA meds (glipizide / metformin) [facility] Diabetic Neuropathies (ICD-9-CM 250.60/357.2) Active Condition Jayson DELANE[facility] DISC DISPLACEMENT NOS Active Condition [facility] DJD Active Condition [facility] Dry Eye Syndrome [facility] Dyslipidemia (ICD-9-CM 272.4) Active Condition [facility] Edema Active Condition [facility] Exposure to potentially hazardous substance Active Condition [facility] FACIAL NERVE DIS NEC Active Condition [facility] Finding related to compliance with treatment Active Condition [facility] Gastroenteritis Active Condition [facility] GERD - Gastro-Esophageal Reflux Disease ([facility] [id number]) Active Condition [facility] Gout Active Condition [facility] H/O: Stroke ([facility] [id number]) Active Condition [facility] HEADACHE Active Condition [facility] Health Maintenance Active Condition N 2008 Entered By: DAMI MAGANA NN Comment: on RX from LMD/doesn't know names/will bring list nxt visit [facility] HERED FRUCTOSE INTOLERAN Active Condition [facility] History of cholecystectomy Active Condition Apr 26, 2020 Entered By: STONE DEL CASTILLO Comment: patient reports done in early 2019 [facility] Hollenhorst Plaque Active Condition [facility] Homeless single person Active Condition [facility] Hyperlipidemia Active Condition [facility] Hypertensive disorder Active Condition [facility] IDIO PERIPH NEURPTHY NEC Active Condition [facility] Insect Bite NEC (ICD-9-CM 919.4) Active Condition [facility] Kidney Stone ([facility] [id number]) Active Condition [facility] 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 Mood Disorder due to a General Medical Condition (ICD-9-CM 293.83) Active Condition [facility] Normal grief reaction Active Condition [facility] Numbness and tingling sensation of skin Active Condition [facility] Obesity Active Condition [facility] Obesity * (ICD-9-CM 278.00) Active Condition [facility] Osteitis deformans (SNOMED CT 5222019) Active Condition [facility] Osteoarthritis (SCT [id number]) Active Condition Jul 26, 2020 Entered By: TI JOSHUA Comment: s/p B [facility] Osteoarthritis * (ICD-9-CM 715.90) Active Condition [facility] Other General Symptoms (ICD-9-CM 780.9) Active Condition Nov 18, 2001 Entered By: KAYCEE ISRAEL Comment: Episodic loss of consciousness [facility] OTHER SEBORRHEIC DERMATITIS Active Condition [facility] Overactive bladder Active Condition [facility] PAGET'S DISEASE Active Condition [facility] PROLONG POSTTRAUM STRESS Active Condition [facility] PVD * (ICD-9-CM 443.9) Active Condition [facility] Relationship distress with spouse or intimate partner Active Condition [facility] Restless legs Active Condition [facility] SKIN ANOMALY NEC Active Condition [facility] Sleep Apnea (SCT 99264034) Active Condition Jul 26, 2020 Entered By: TI JOSHUA Comment: intolerant of CPAP [facility] Spinal Stenosis of Lumbar Region (SCT [id number]) Active Condition [facility] Sprain of unspecified site of knee and leg (ICD-9-CM 844.9) Active Condition [facility] SURGERY FOLLOW-UP Active Condition [facility] Tick bite Active Condition [facility] Type II diabetes mellitus uncontrolled Active Condition [facility] Unresolved [facility] URIN TRACT INFECTION NOS Active Condition [facility] Vascular dementia (SNOMED CT [id number]) Active Condition [facility] Vision, abnormal Active Condition [facility] Vitamin D deficiency Active Condition [facility] Xeroderma Active Condition [facility] Acute conjunctivitis (ICD-9-CM 372.00) Inactive Condition 08/03/2009 [facility] Acute sinusitis (ICD-9-CM 461.9) Inactive Condition 08/03/2009 [facility] DM Type II w/o Eye Disease Inactive Condition 08/03/2009 [facility] Gastroenteritis * (ICD-9-CM 558.9) Inactive Condition 08/03/2009 [facility] Hip: arthralgia (pain on rotation, pain in groin) * (ICD-9-CM 719.45) Inactive Condition 08/03/2009 [facility] Influenza * (ICD-9-CM 487.1) Inactive Condition 08/03/2009 [facility] Diagnosis: ICD-10-CM Z51.81 Encounter for therapeutic drug level monitoring Active Diagnosis [facility] Diagnosis: ICD-10-CM I82.409 Acute embolism and thombos unsp deep vn unsp lower extremity Active Diagnosis [facility] Diagnosis: ICD-10-CM Z13.5 Encounter for screening for eye and ear disorders Active Diagnosis [facility] Diagnosis: ICD-10-CM E11.9 Type 2 diabetes mellitus without complications Active Diagnosis [facility] Diagnosis: ICD-10-CM Z79.899 Other long-term (current) drug therapy Active Diagnosis [facility] Diagnosis: ICD-10-CM I25.10 Athscl heart disease of [place] coronary artery w/o ang pctrs Active Diagnosis [facility] Diagnosis: ICD-10-CM M25.562 Pain in left knee Active Diagnosis [facility] Diagnosis: ICD-10-CM M79.605 Pain in left leg Active Diagnosis [facility] Diagnosis: ICD-10-CM F33.40 Major depressive disorder, recurrent, in remission, unsp Active Diagnosis [facility] Medications Combined list of outpatient medications from [...] FOR ANTICOAG ULATION ORAL SUSPEND ED 05/21/2026 [id number] GASTON DIANE B 2024 90 [facility] N APIXABAN 5MG TAB TAKE ONE-HALF TABLET BY MOUTH TWICE A DAY FOR ANTICOAG ULATION ORAL DISCONT INUED 12/31/2025 [id number] 5 AMILCAR SHERWOOD 2024 90 [facility] N APIXABAN 5MG TAB TAKE ONE-HALF TABLET BY MOUTH TWICE A DAY FOR ANTICOAG ULATION ORAL DISCONT INUED 01/22/2025 [id number] 5 BARBARA HUNT 2024 60 [facility] APIXABAN 5MG TAB TAKE ONE-HALF TABLET BY MOUTH TWICE A DAY FOR ANTICOAG ULATION ORAL DISCONT INUED (EDIT) 12/23/2024 [id number] BARBARA HUNT 2023 90 [facility] ATORVASTATI N CA 80MG TAB TAKE ONE-HALF TABLET BY MOUTH EVERY EVENING TO LOWER CHOLESTE ROL ORAL ACTIVE 12/16/2025 [id number] 5 CHRISTOPHER ISSA DHBelkys 2024 45 [facility] DULAGLUTIDE 1.5MG/0.5ML INJ,SOLN,PE N INJECT 1.5MG/0. 5ML UNDER THE SKIN EVERY WEEK SUBCUT ANEOUS ACTIVE MARY ELLEN DEL CASTILLO 2021 [facility] DULAGLUTIDE 1.5MG/0.5ML INJ,SOLN,PE N INJECT 1.5MG (0.5ML) SUBCUTAN EOUSLY EVERY WEEK SUBCUT ANEOUS ACTIVE TARA JOSHUA 2019 [facility] EMPAGLIFLOZ IN 5MG/METFORM IN 1000MG TAB,ORAL TAKE ONE TABLET BY MOUTH TWICE A DAY ORAL ACTIVE ABUNDIOMARY ELLEN E Dilcia 2021 [facility] EMPAGLIFLOZ IN 5MG/METFORM IN 1000MG TAB,ORAL TAKE ONE TABLET BY MOUTH TWO TIMES A DAY ORAL ACTIVE TARA JOSHUA 2019 [facility] GABAPENTIN 300MG CAP TAKE ONE CAPSULE BY MOUTH TWICE A DAY FOR PAIN ORAL ACTIVE 12/16/2025 [id number] 5 LUIS MANUEL,NI DHI [address] [facility] LISINOPRIL 5MG TAB TAKE ONE-HALF TABLET BY MOUTH ONCE A DAY FOR HEART OR BLOOD PRESSURE ORAL ACTIVE 12/16/2025 [id number] 5 LUIS MANUEL,NI DHI [address] [facility] OMEPRAZOLE 20MG CAP,EC TAKE ONE CAPSULE BY MOUTH TWICE A DAY TO LOWER STOMACH ACID. TAKE 30 MINUTES PRIOR TO FOOD. ORAL ACTIVE 12/16/2025 [id number] 5 LUIS MANUEL,NI DHI [address] [facility] OMEPRAZOLE 20MG CAP,EC TAKE ONE CAPSULE BY MOUTH TWICE A DAY TO LOWER STOMACH ACID. TAKE 30 MINUTES PRIOR TO FOOD. ORAL DISCONT INUED 05/12/2025 [id number] 5 José Miguel TOURE 2023 180 [facility] SERTRALINE HCL 50MG TAB TAKE ONE-HALF TABLET BY MOUTH EVERY MORNING ORAL ACTIVE 12/16/2025 [id number] 5 LUIS MANUEL,NI DHI [address] [facility] SERTRALINE HCL 50MG TAB TAKE ONE-HALF TABLET BY MOUTH EVERY MORNING FOR DEPRESSI ON ORAL DISCONT INUED 06/24/2025 [id number] 5 ROGER ESCALERA 2023 45 [facility] SERTRALINE HCL 50MG TAB TAKE ONE-HALF TABLET BY MOUTH EVERY MORNING FOR DEPRESSI ON ORAL DISCONT INUED 12/17/2024 [id number] ROGER ESCALERA 2023 45 [facility] TAMSULOSIN HCL 0.4MG CAP TAKE ONE CAPSULE BY MOUTH EVERY EVENING APPROXIM ATELY 30 MINUTES AFTER THE SAME MEAL EACH DAY (FOR PROSTATE ) ORAL ACTIVE 12/16/2025 [id number] 5 CHRISTOPHER ISSA DHI 2024 90 [facility] Allergies, Adverse Reactions, Alerts Combined list of allergies from Department of Defense and Veterans Affairs facilities. It does not include entries that were removed or entered in error. Substance Category Reaction Severity Reaction type Status Date Reported Comments Source AMITRIPTYLIN E Propensity to adverse reactions to drug (finding) Physical aggression active 2 [facility] ASPIRIN Propensity to adverse reactions to drug (finding) active 5 [facility] METFORMIN Propensity to adverse reactions to drug (finding) Diarrhea active 3 [facility] MORPHINE Propensity to adverse reactions to drug (finding) Physical aggression active 2 [facility] OXCARBAZEPIN E Propensity to adverse reactions to drug (finding) Psychotic disorder active 2 [facility] PENICILLIN Propensity to adverse reactions to drug (finding) active 5 [facility] PENICILLIN Propensity to adverse reactions to drug (finding) HIVES active 3 [facility] PENICILLIN Propensity to adverse reactions to drug (finding) Urticaria active 0 [facility] TRAZODONE Propensity to adverse reactions to drug (finding) Bleeding active 2 [facility] Immunizations Combined list of available immunizations from the Department of Defense and Veterans Affairs facilities. Immunization Series Date Given Administered By Site Reaction Lot Number CVX Code Drug It Recruiter Status Comments Source INFLUENZA, UNSPECIFIED FORMULATION 2020 88 complet ed [facility] 15 INFLUENZA, SEASONAL, INJECTABLE, PRESERVATIVE FREE 2016 140 complet ed [facility] PNEUMOCOCCAL CONJUGATE PCV 13 2016 133 complet ed [facility] INFLUENZA, UNSPECIFIED FORMULATION 2014 88 complet ed NOVARTIS/ [id number]/ [facility] PNEUMOCOCCAL CONJUGATE PCV 13 2014 133 complet ed [facility] INFLUENZA, UNSPECIFIED FORMULATION 2013 88 complet ed as per [facility] PNEUMOVAX (HISTORICAL) 2013 33 complet ed [facility] INFLUENZA, UNSPECIFIED FORMULATION 2013 88 complet ed CSL BIOTHERAP IES/[id number] [facility] INFLUENZA, UNSPECIFIED FORMULATION 2012 88 complet ed Glaxo-Kli ne/7SE5/ 03-22- 4 [facility] INFLUENZA (HISTORICAL) 2011 88 complet ed Novartis/ Lot# [id number] [facility] TDAP 2011 115 complet ed Sanofi Pasteur/L ot# [id number] [facility] INFLUENZA (HISTORICAL) 2011 88 complet ed [facility] NOVEL INFLUENZA-H1N 1-09, ALL FORMULATIONS 2009 128 complet ed Novartis/ Lot# [id number] [facility] INFLUENZA (HISTORICAL) 2008 NONE 88 complet ed Completed Series, Left Deltoid [facility], [place] [facility] PNEUMOCOCCAL POLYSACCHARID E PPV23 2008 33 complet ed Right Deltoid [facility] INFLUENZA (HISTORICAL) 2007 88 complet ed [facility] INFLUENZA (HISTORICAL) 2006 88 complet ed Left Deltoid [facility] INFLUENZA (HISTORICAL) 2005 88 complet ed Left Deltoid [facility] INFLUENZA (HISTORICAL) 2004 88 complet ed Left Deltoid [facility] INFLUENZA (HISTORICAL) 2003 88 complet ed Left Deltoid [facility] PNEUMOCOCCAL POLYSACCHARID E PPV23 2003 33 complet ed Left Deltoid [facility] INFLUENZA (HISTORICAL) 2002 88 complet ed Left Deltoid [facility] INFLUENZA (HISTORICAL) 2000 88 complet ed [facility] TD(ADULT) UNSPECIFIED FORMULATION 2000 139 complet ed [facility] TETANUS TOXOID, UNSPECIFIED FORMULATION 1997 KAYCEE LINDSEY X 112 complet ed [facility] Results Combined [...] No hemolysis noted. Ordering Provider: LIZA ISSA MD Report Released Date/Time: Dec 11, 2024 04:22 PM Reporting Lab: [facility] [address] [place] [phone] Performing Lab: [facility] [address] [place] [phone] [facility] COMPREHEN SIVE METABOLIC PANEL UREA NITROGEN [MASS/VOLUM E] IN SERUM OR PLASMA 19.8 mg/dL 9.0 - 25.0 12/16 Specimen Type: PLASMA Comment: No hemolysis noted. Ordering Provider: LIZA ISAS Report Released Date/Time: Dec 11, 2024 04:22 PM Reporting Lab: [facility] [address] [place] [phone] Performing Lab: [facility] [address] [facility] [phone] [facility] COMPREHEN SIVE METABOLIC PANEL GLUCOSE [MASS/VOLUM E] IN SERUM OR PLASMA 167 mg/dL 72 - 99 12/16 H Specimen Type: PLASMA Comment: No hemolysis noted. Ordering Provider: LIZA ISSA Report Released Date/Time: Dec 11, 2024 04:22 PM Reporting Lab: [facility] [address] [facility] [phone] Performing Lab: [facility] [address] [facility] [phone] [facility] COMPREHEN SIVE METABOLIC PANEL SODIUM [MOLES/VOLU ME] IN SERUM OR PLASMA 139 meq/L 136 - 145 12/16 Specimen Type: PLASMA Comment: No hemolysis noted. Ordering Provider: LIZA ISSA Report Released Date/Time: Dec 11, 2024 04:22 PM Reporting Lab: [facility] [address] [facility] [phone] Performing Lab: [facility] [address] [facility] [phone] [facility] COMPREHEN SIVE METABOLIC PANEL POTASSIUM [MOLES/VOLU ME] IN SERUM OR PLASMA 4.0 meq/L 3.5 - 5 12/16 Specimen Type: PLASMA Comment: No hemolysis noted. Ordering Provider: LIZA ISSA Report Released Date/Time: Dec 11, 2024 04:22 PM Reporting Lab: [facility] [address] [place] [phone] Performing Lab: [facility] [address] [facility] [phone] [facility] COMPREHEN SIVE METABOLIC PANEL CHLORIDE [MOLES/VOLU ME] IN SERUM OR PLASMA 102 meq/L 98 - 107 12/16 Specimen Type: PLASMA Comment: No hemolysis noted. Ordering Provider: LIZA ISSA Report Released Date/Time: Dec 11, 2024 04:22 PM Reporting Lab: [facility] [phone] Performing Lab: [facility] [address] [facility] [phone] [facility] COMPREHEN SIVE METABOLIC PANEL CARBON DIOXIDE, TOTAL [MOLES/VOLU ME] IN SERUM OR PLASMA 26 meq/L 22 - 31 12/16 Specimen Type: PLASMA Comment: No hemolysis noted. Ordering Provider: LIZA ISSA Report Released Date/Time: Dec 11, 2024 04:22 PM Reporting Lab: [facility] [address] [facility] [phone] Performing Lab: [facility] [address] [facility] [phone] [facility] COMPREHEN SIVE METABOLIC PANEL CALCIUM [MASS/VOLUM E] IN SERUM OR PLASMA 10.0 mg/dL 8.4 - 10.4 12/16 Specimen Type: PLASMA Comment: No hemolysis noted. Ordering Provider: LIZA ISSA Report Released Date/Time: Dec 11, 2024 04:22 PM Reporting Lab: [address] [phone] Performing Lab: [place] [address] [facility] [phone] [facility] COMPREHEN SIVE METABOLIC PANEL PROTEIN [MASS/VOLUM E] IN SERUM OR PLASMA 7.9 g/dL 6 - 8.6 12/16 Specimen Type: PLASMA Comment: No hemolysis noted. Ordering Provider: LIZA ISSA Report Released Date/Time: Dec 11, 2024 04:22 PM Reporting Lab: [address] [phone] Performing Lab: [place] [address] [facility] [phone] [facility] COMPREHEN SIVE METABOLIC PANEL ALBUMIN [MASS/VOLUM E] IN SERUM OR PLASMA 4.2 g/dL 3.4 - 5 12/16 Specimen Type: PLASMA Comment: No hemolysis noted. Ordering Provider: LIZA ISSA Report Released Date/Time: Dec 11, 2024 04:22 PM Reporting Lab: [address] [phone] Performing Lab: [address] [phone] [facility] COMPREHEN SIVE METABOLIC PANEL BILIRUBIN.T OTAL [MASS/VOLUM E] IN SERUM OR PLASMA 0.5 mg/dL 0.2 - 1.2 12/16 Specimen Type: PLASMA Comment: No hemolysis noted. Ordering Provider: LIZA ISSA Report Released Date/Time: Dec 11, 2024 04:22 PM Reporting Lab: [address] [phone] Performing Lab: [facility] [address] [facility] [phone] [facility] COMPREHEN SIVE METABOLIC PANEL ALKALINE PHOSPHATASE [ENZYMATIC ACTIVITY/VO LUME] IN SERUM OR PLASMA 133 U/L 40 - 150 12/16 Specimen Type: PLASMA Comment: No hemolysis noted. Ordering Provider: LIZA ISSA Report Released Date/Time: Dec 11, 2024 04:22 PM Reporting Lab: [facility] [address] [facility] [phone] Performing Lab: [facility] [address] [facility] [phone] [facility] COMPREHEN SIVE METABOLIC PANEL ASPARTATE AMINOTRANSF ERASE [ENZYMATIC ACTIVITY/VO LUME] IN SERUM OR PLASMA 27 U/L 5 - 34 12/16 Specimen Type: PLASMA Comment: No hemolysis noted. Ordering Provider: LIZA ISSA Report Released Date/Time: Dec 11, 2024 04:22 PM Reporting Lab: [facility] [address] [facility] [phone] Performing Lab: [facility] [address] [facility] [phone] [facility] COMPREHEN SIVE METABOLIC PANEL ALANINE AMINOTRANSF ERASE [ENZYMATIC ACTIVITY/VO LUME] IN SERUM OR PLASMA 16 U/L 8 - 40 12/16 Specimen Type: PLASMA Comment: No hemolysis noted. Ordering Provider: LIZA ISSA Report Released Date/Time: Dec 11, 2024 04:22 PM Reporting Lab: [facility] [address] [facility] [phone] Performing Lab: [facility] [address] [facility] [phone] [facility] COMPREHEN SIVE METABOLIC PANEL GLOMERULAR FILTRATION RATE/1.73 SQ M.PREDICTED [VOLUME RATE/AREA] IN SERUM, PLASMA OR BLOOD BY CREATININE- BASED FORMULA (CKD-EPI 2020) 86.9 60 12/16 Specimen Type: PLASMA Comment: No hemolysis noted. Ordering Provider: LIZA ISSA Report Released Date/Time: Dec 11, 2024 04:22 PM Reporting Lab: [facility] [address] [facility] [address] Performing Lab: [facility] [address] [facility] [address] [facility] HGA1C HEMOGLOBIN A1C/HEMOGLO BIN.TOTAL IN BLOOD 7.3 4.0 - 6.0 12/16 H Specimen Type: BLOOD No comment entered. Ordering Provider: LIZA ISSA Report Released Date/Time: Dec 11, 2024 04:22 PM Reporting Lab: [facility] [address] [facility] [address] Performing Lab: [facility] [address] [facility] [address] [facility] LIPID PANEL (STL) CHOLESTEROL [MASS/VOLUM E] IN SERUM OR PLASMA 90 mg/dL 0 - 200 12/16 Specimen Type: PLASMA Comment: No hemolysis noted. Ordering Provider: LIZA ISSA Report Released Date/Time: Dec 11, 2024 04:22 PM Reporting Lab: [facility] [address] [facility] [address] Performing Lab: [facility] [address] [facility] [address] [facility] LIPID PANEL (STL) TRIGLYCERID E [MASS/VOLUM E] IN SERUM OR PLASMA 63 mg/dL 0 - 150 12/16 Specimen Type: PLASMA Comment: No hemolysis noted. Ordering Provider: LIZA ISSA Report Released Date/Time: Dec 11, 2024 04:22 PM Reporting Lab: [facility] [address] [facility] [address] Performing Lab: [facility] [address] [facility] [address] [facility] LIPID PANEL (STL) CHOLESTEROL IN LDL [MASS/VOLUM E] IN SERUM OR PLASMA BY CALCULATION 32 mg/dL 12/16 Specimen Type: PLASMA Comment: No hemolysis noted. Ordering Provider: LIZA ISSA Report Released Date/Time: Dec 11, 2024 04:22 PM Reporting Lab: [facility] [address] [facility] [address] Performing Lab: [facility] [address] [facility] [address] [facility] LIPID PANEL (STL) CHOLESTEROL IN HDL [MASS/VOLUM E] IN SERUM OR PLASMA 45 mg/dL 40 12/16 Specimen Type: PLASMA Comment: No hemolysis noted. Ordering Provider: LIZA ISSA Report Released Date/Time: Dec 11, 2024 04:22 PM Reporting Lab: [facility] [address] [facility] [address] Performing Lab: [facility] [address] [facility] [address] [facility] MICRAL/CR EAT PROFILE (STL) ALBUMIN [MASS/VOLUM E] IN URINE 226.8 mg/L 12/16 Specimen Type: URINE No comment entered. Ordering Provider: LIZA ISSA Report Released Date/Time: Dec 11, 2024 04:22 PM Reporting Lab: [facility] [address] [facility] [address] Performing Lab: [facility] [address] [facility] [address] [facility] MICRAL/CR EAT PROFILE (STL) ALBUMIN/CRE ATININE [MASS RATIO] IN URINE 422 mg/g 0 - 29 12/16 H Specimen Type: URINE No comment entered. Ordering Provider: LIZA ISSA Report Released Date/Time: Dec 11, 2024 04:22 PM Reporting Lab: [facility] [address] [facility] [address] Performing Lab: [facility] [address] [facility] [address] [facility] MICRAL/CR EAT PROFILE (STL) CREATININE [MASS/VOLUM E] IN URINE 53.7 mg/dL 63 - 166 12/16 L Specimen Type: URINE No comment entered. Ordering Provider: LIZA ISSA Report Released Date/Time: Dec 11, 2024 04:22 PM Reporting Lab: [facility] [address] [facility] [address] Performing Lab: [place] [address] [facility] [address] [facility] B12 COBALAMIN (VITAMIN B12) [MASS/VOLUM E] IN SERUM OR PLASMA 400 pg/mL 213 - 816 08/11 Specimen Type: SERUM No comment entered. Ordering Provider: JEANINE CARDENAS Report Released Date/Time: Aug 11, 2024 02:09 PM Reporting Lab: [address] [address] Performing Lab: [address] [address] [facility] COMPREHEN SIVE METABOLIC PANEL CREATININE [MASS/VOLUM E] IN SERUM OR PLASMA 1.18 mg/dL 0.7 - 1.3 08/11 Specimen Type: PLASMA Comment: No hemolysis noted. Ordering Provider: JEANINE CARDENAS Report Released Date/Time: Aug 11, 2024 02:09 PM Reporting Lab: [address] [address] Performing Lab: [facility] [address] [place] [phone] [facility] COMPREHEN SIVE METABOLIC PANEL UREA NITROGEN [MASS/VOLUM E] IN SERUM OR PLASMA 23.5 mg/dL 9.0 - 25.0 08/11 Specimen Type: PLASMA Comment: No hemolysis noted. Ordering Provider: JEANINE CARDENAS Report Released Date/Time: Aug 11, 2024 02:09 PM Reporting Lab: [facility] [address] [place] [phone] Performing Lab: [facility] [address] [facility] [address] [facility] COMPREHEN SIVE METABOLIC PANEL GLUCOSE [MASS/VOLUM E] IN SERUM OR PLASMA 94 mg/dL 72 - 99 08/11 Specimen Type: PLASMA Comment: No hemolysis noted. Ordering Provider: JEANINE CARDENAS Report Released Date/Time: Aug 11, 2024 02:09 PM Reporting Lab: [address] [address] Performing Lab: [place] [address] [facility] [address] [facility] COMPREHEN SIVE METABOLIC PANEL SODIUM [MOLES/VOLU ME] IN SERUM OR PLASMA 139 meq/L 136 - 145 08/11 Specimen Type: PLASMA Comment: No hemolysis noted. Ordering Provider: JEANINE CARDENAS Report Released Date/Time: Aug 11, 2024 02:09 PM Reporting Lab: [facility] [address] [facility] [address] Performing Lab: [facility] [address] [facility] [address] [facility] COMPREHEN SIVE METABOLIC PANEL POTASSIUM [MOLES/VOLU ME] IN SERUM OR PLASMA 4.2 meq/L 3.5 - 5 08/11 Specimen Type: PLASMA Comment: No hemolysis noted. Ordering Provider: JEANINE CARDENAS Report Released Date/Time: Aug 11, 2024 02:09 PM Reporting Lab: [facility] [address] [place] [phone] Performing Lab: [facility] [address] [facility] [address] [facility] COMPREHEN SIVE METABOLIC PANEL CHLORIDE [MOLES/VOLU ME] IN SERUM OR PLASMA 105 meq/L 98 - 107 08/11 Specimen Type: PLASMA Comment: No hemolysis noted. Ordering Provider: JEANINE CARDENAS Report Released Date/Time: Aug 11, 2024 02:09 PM Reporting Lab: [facility] [address] [facility] [address] Performing Lab: [facility] [address] [facility] [address] [facility] COMPREHEN SIVE METABOLIC PANEL CARBON DIOXIDE, TOTAL [MOLES/VOLU ME] IN SERUM OR PLASMA 24 meq/L 22 - 31 08/11 Specimen Type: PLASMA Comment: No hemolysis noted. Ordering Provider: JEANINE CARDENAS Report Released Date/Time: Aug 11, 2024 02:09 PM Reporting Lab: [facility] [address] [place] [phone] Performing Lab: [facility] [address] [facility] [address] [facility] COMPREHEN SIVE METABOLIC PANEL CALCIUM [MASS/VOLUM E] IN SERUM OR PLASMA 9.7 mg/dL 8.4 - 10.4 08/11 Specimen Type: PLASMA Comment: No hemolysis noted. Ordering Provider: JEANINE CARDENAS Report Released Date/Time: Aug 11, 2024 02:09 PM Reporting Lab: [place] [address] [facility] [address] Performing Lab: [place] [address] [facility] [address] [facility] COMPREHEN SIVE METABOLIC PANEL PROTEIN [MASS/VOLUM E] IN SERUM OR PLASMA 7.7 g/dL 6 - 8.6 08/11 Specimen Type: PLASMA Comment: No hemolysis noted. Ordering Provider: JEANINE CARDENAS Report Released Date/Time: Aug 11, 2024 02:09 PM Reporting Lab: [address] [address] Performing Lab: [place] [address] [facility] [address] [facility] COMPREHEN SIVE METABOLIC PANEL ALBUMIN [MASS/VOLUM E] IN SERUM OR PLASMA 3.9 g/dL 3.4 - 5 08/11 Specimen Type: PLASMA Comment: No hemolysis noted. Ordering Provider: JEANINE CARDENAS Report Released Date/Time: Aug 11, 2024 02:09 PM Reporting Lab: [facility] [address] Performing Lab: [facility] [address] [facility] COMPREHEN SIVE METABOLIC PANEL BILIRUBIN.T OTAL [MASS/VOLUM E] IN SERUM OR PLASMA 0.5 mg/dL 0.2 - 1.2 08/11 Specimen Type: PLASMA Comment: No hemolysis noted. Ordering Provider: JEANINE CARDENAS Report Released Date/Time: Aug 11, 2024 02:09 PM Reporting Lab: [facility] [address] [place] [phone] Performing Lab: [facility] [address] [facility] [address] [facility] COMPREHEN SIVE METABOLIC PANEL ALKALINE PHOSPHATASE [ENZYMATIC ACTIVITY/VO LUME] IN SERUM OR PLASMA 132 U/L 40 - 150 08/11 Specimen Type: PLASMA Comment: No hemolysis noted. Ordering Provider: JEANINE CARDENAS Report Released Date/Time: Aug 11, 2024 02:09 PM Reporting Lab: [facility] [address] [facility] [address] Performing Lab: [facility] [address] [facility] [address] [facility] COMPREHEN SIVE METABOLIC PANEL ASPARTATE AMINOTRANSF ERASE [ENZYMATIC ACTIVITY/VO LUME] IN SERUM OR PLASMA 20 U/L 5 - 34 08/11 Specimen Type: PLASMA Comment: No hemolysis noted. Ordering Provider: JEANINE CARDENAS Report Released Date/Time: Aug 11, 2024 02:09 PM Reporting Lab: [facility] [address] [facility] [address] Performing Lab: [facility] [address] [facility] [address] [facility] COMPREHEN SIVE METABOLIC PANEL ALANINE AMINOTRANSF ERASE [ENZYMATIC ACTIVITY/VO LUME] IN SERUM OR PLASMA 17 U/L 8 - 40 08/11 Specimen Type: PLASMA Comment: No hemolysis noted. Ordering Provider: JEANINE CARDENAS Report Released Date/Time: Aug 11, 2024 02:09 PM Reporting Lab: [facility] [address] [facility] [address] Performing Lab: [facility] [address] [facility] [address] [facility] COMPREHEN SIVE METABOLIC PANEL GLOMERULAR FILTRATION RATE/1.73 SQ M.PREDICTED [VOLUME RATE/AREA] IN SERUM, PLASMA OR BLOOD BY CREATININE- BASED FORMULA (CKD-EPI 2020) 63.2 60 08/11 Specimen Type: PLASMA Comment: No hemolysis noted. Ordering Provider: JEANINE CARDENAS Report Released Date/Time: Aug 11, 2024 02:09 PM Reporting Lab: [facility] [address] [facility] [address] Performing Lab: [facility] [address] [place] [address] [facility] HGA1C HEMOGLOBIN A1C/HEMOGLO BIN.TOTAL IN BLOOD 7.1 4.0 - 6.0 08/11 H Specimen Type: BLOOD No comment entered. Ordering Provider: JEANINE CARDENAS Report Released Date/Time: Aug 11, 2024 02:09 PM Reporting Lab: [facility] [address] Performing Lab: [address] [address] [facility] LIPID PANEL (STL) CHOLESTEROL [MASS/VOLUM E] IN SERUM OR PLASMA 98 mg/dL 0 - 200 08/11 Specimen Type: PLASMA Comment: No hemolysis noted. Ordering Provider: JEANINE CARDENAS Report Released Date/Time: Aug 11, 2024 02:09 PM Reporting Lab: [facility] [address] Performing Lab: [address] [address] [facility] LIPID PANEL (STL) TRIGLYCERID E [MASS/VOLUM E] IN SERUM OR PLASMA 51 mg/dL 0 - 150 08/11 Specimen Type: PLASMA Comment: No hemolysis noted. Ordering Provider: JEANINE CARDENAS Report Released Date/Time: Aug 11, 2024 02:09 PM Reporting Lab: [facility] [address] [facility] [address] Performing Lab: [address] [address] [facility] LIPID PANEL (STL) CHOLESTEROL IN LDL [MASS/VOLUM E] IN SERUM OR PLASMA BY CALCULATION 43 mg/dL 08/11 Specimen Type: PLASMA Comment: No hemolysis noted. Ordering Provider: JEANINE CARDENAS Report Released Date/Time: Aug 11, 2024 02:09 PM Reporting Lab: [facility] [address] [facility] [address] Performing Lab: [facility] [address] [facility] [address] [facility] LIPID PANEL (STL) CHOLESTEROL IN HDL [MASS/VOLUM E] IN SERUM OR PLASMA 45 mg/dL 40 08/11 Specimen Type: PLASMA Comment: No hemolysis noted. Ordering Provider: JEANINE CARDENAS Report Released Date/Time: Aug 11, 2024 02:09 PM Reporting Lab: [facility] [address] [facility] [address] Performing Lab: [address] [address] [facility] TSH (MA-PB) THYROTROPIN [UNITS/VOLU ME] IN SERUM OR PLASMA 3.281 u[IU]/ mL 0.47 - 5 08/11 Specimen Type: SERUM No comment entered. Ordering Provider: JEANINE CARDENAS Report Released Date/Time: Aug 11, 2024 02:09 PM Reporting Lab: [facility] [address] [facility] [address] Performing Lab: [address] [address] [facility] VITAMIN D, 25-HYDROX Y 25-HYDROXYV ITAMIN D3 [MASS/VOLUM E] IN SERUM OR PLASMA 31.4 ng/mL 30 - 96 08/11 Specimen Type: SERUM No comment entered. Ordering Provider: JEANINE CARDENAS Report Released Date/Time: Aug 11, 2024 02:09 PM Reporting Lab: [facility] [address] [facility] [address] Performing Lab: [address] [address] [facility] Vital Signs Combined list of inpatient and outpatient Vital Signs from Department of Defense and Veterans Affairs, ranging from 12 months to all on record, depending upon the facility. Vital Sign Value Date Comments Source SYSTOLIC BLOOD PRESSURE 139 12/16/19 25 12:52:02 [facility] DIASTOLIC BLOOD PRESSURE 74 025 12:52:02 [facility] PULSE OXIMETRY 96 12/15/2024 12:52:02 [facility] WEIGHT 215.8 12/15/2024 12:52:02 [facility] BMI 29 kg/m2 12/15/2024 12:52:02 [facility] PAIN 0 12/15/2024 12:52:02 [facility] HEIGHT 72 12/15/2024 12:52:02 [facility] TEMPERATURE 98 12/15/2024 12:52:02 [facility] PULSE 63 12/15/2024 12:52:02 [facility] RESPIRATION 16 12/15/2024 12:52:02 [facility] SYSTOLIC BLOOD PRESSURE 135 08/11/20 13:38:00 [facility] DIASTOLIC BLOOD PRESSURE 70 024 13:38:00 [facility] PULSE OXIMETRY 97 08/11/2024 13:38:00 [facility] WEIGHT 198 08/11/2024 13:38:00 [facility] BMI 26 kg/m2 08/11/2024 13:38:00 [facility] PAIN 0 08/11/2024 13:38:00 [facility] HEIGHT 73 08/11/2024 13:38:00 [facility] TEMPERATURE 98 08/11/2024 13:38:00 [facility] PULSE 65 08/11/2024 13:38:00 [facility] RESPIRATION 16 08/11/2024 13:38:00 [facility] Encounters Combined list of: 1) Encounters from Department of Veterans Affairs facilities going backup to the last 18 months, not all VA inpatient encounters are included; 2) Encounters from the Department of [facility] facilities going backup to 280 months. Location Location Details Encounter Type Encounter Number Reason For Visit Attending Provider ADM Date DC Date Status Disposition Source [facility] Outpatient Encounter [id number] 12/01 [facility] Outpatient Encounter [id number] JILL MARTINES 12/01 [facility] [place] Encounter [id number] 12/08 [facility] Outpatient Encounter [id number] 12/08 [facility] Outpatient Encounter [id number] Gabe BOLDEN 12/12 [facility] FEE [id number] Diagnos is: ICD-10- CM F33.40 Major depress rigoberto disorde r, recurre nt, in remissi on, unsp ESCALERA,12/16 [facility] OFFICE O/P EST LOW 20 MIN [id number] Diagnos is: ICD-10- CM F33.40 Major depress rigoberto disorde r, recurre nt, in remissi on, unsp ESCALERA,12/16 [facility] EMERGENCY DEPT VISIT MOD MDM [id number] Diagnos is: ICD-10- CM M79.605 Pain in left leg PRECIOUS DIAL S 12/19 [facility] Outpatient Encounter [id number] PRECIOUS DIAL S 12/19 [facility] GAIT TRAINING THERAPY [id number] Diagnos is: ICD-10- CM M25.562 Pain in left knee RAMY JUDGE L 12/19 [facility] MTMS BY PHARM EST 15 MIN [id number] Diagnos is: ICD-10- CM Z51.81 Encount er for therape utic drug level monitor BARBARA Hand 12/22 [facility] Outpatient Encounter [id number] 12/22 [facility] Encounter [id number] 12/23 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 DAVID TOURE 12/31 [facility] Outpatient Encounter [id number] PATTIE MORENO 01/06 [place] [facility] Outpatient Encounter [id number] 01/12 [facility] En[facility] [id number] 01/26 [facility] En[facility] [id number] 01/26 [facility] Outpatient Encounter [id number] 01/27 [facility] [place] [facility] Outpatient Encounter [id number] KAIA SUAREZ 02/03 [place] [facility] Outpatient Encounter [id number] 02/[address] [facility] Outpatient Encounter [id number] 02/25 [facility] Outpatient Encounter [id number] 02/26 [facility] Outpatient Encounter [id number] 02/26 [facility] Outpatient Encounter [id number] GLEN PARADA 03/05 [facility] Outpatient Encounter [id number] 05/11 [facility] Outpatient Encounter [id number] 07/01 [facility] Outpatient Encounter [id number] 07/15 [facility] Outpatient Encounter [id number] CAIO GALVAN 07/17 [facility] Outpatient Encounter [id number] 07/20 [facility] MTMS BY PHARM CIRCULAR KNITTER 15 MIN [id number] Diagnos is: ICD-10- CM Z79.899 Other intermediate designer (curren t) drug therapy ELMER CERNA 07/23 [facility] Outpatient Encounter [id number] 07/27 [facility] Outpatient Encounter [id number] RONALD JOHNSON 07/28 [facility] Outpatient Encounter [id number] 08/05 [facility] Outpatient Encounter [id number] JEANINE CARDENAS D 08/05 [facility] Outpatient Encounter [id number] JEANINE CARDENAS 08/09 [facility] Outpatient Encounter [id number] SIMIN LEE C 08/11 [facility] Outpatient Encounter [id number] JEANINE CARDENAS D 08/12 [facility] Outpatient Encounter [id number] SIMIN LEE 08/21 [facility] Outpatient Encounter [id number] 08/23 [facility] Outpatient Encounter [id number] DAVID TOURE 08/25 [facility] Encounter [id number] JEANINE CARDENAS 08/25 [facility] Outpatient Encounter [id number] [facility]A [facility]OSTER 10[facility]03 [facility] [place] [facility] Outpatient Encounter [id number] 11/22 [place] [facility] Outpatient Encounter [id number] 12/04 [facility] Outpatient Encounter [id number] SIMIN LEE 12/07 [facility] Outpatient Encounter [id number] JEANINE CARDENAS 12/07 [facility] Outpatient Encounter [id number] 12/09 [facility] Outpatient Encounter [id number] 12/15 [facility] Outpatient Encounter [id number] 12/15 [facility] OFFICE O/P EST MOD 30 MIN [id number] Diagnos is: ICD-10- CM E11.9 Type 2 diabete s mellitu s without complic ations LIZA ISSA 12/15 [facility] Outpatient Encounter [id number] 12/15 [facility] IMG RTA DETCJ/MNTR DS STAFF [id number] Diagnos is: ICD-10- CM Z13.5 Encount er for screeni ng for eye and ear disorde rs SIMIN LEE 12/15 [facility] IMG RTA DETC/MNTR DS PHY/QHP [id number] Diagnos is: ICD-10- CM Z13.5 Encount er for screeni ng for eye and ear disorde rs SIMIN LEE 12/15 [facility] NQHP OL DIG ASSMT&MGMT 5-10 [id number] [id number] 587 Diagnos is: ICD-10- CM Z51.81 Encount er for therape utic drug level monitor PAM Sin 12/28 [facility] NQHP OL DIG ASSMT&MGMT 5-10 [id number] [id number] Diagnos is: ICD-10- CM I82.409 Acute embolis m and thombos unsp deep vn unsp lower extremi ty PAM LICONA 12/30 [facility] MTMS BY PHARM EST 15 MIN [id number] [id number] Diagnos is: ICD-10- CM Z51.81 Encount er for therape utic drug level monitor RETA Alicea 01/07 [facility] Outpatient Encounter [id number] 03/22 [facility] Outpatient Encounter [id number] FILOMENA VALENTIN 03/25 [facility] Outpatient Encounter [id number] LIZA ISSA 05/20 [facility] MTMS BY PHARM EST 15 MIN [id number] Diagnos is: ICD-10- CM Z51.81 Encount er for therape utic drug level monitor RETA Alicea 05/20 [facility] Social History Combined list of available smoking, tobacco, and other social history from [facility] Defense and [facility] facilities. Social History Type Response Date Comment Source Tobacco smoking status NHIS [facility]CO FORMER USER 07/23/2024 [facility] History of tobacco use VA-TOBACCO QUIT 15 YRS OR MORE [facility] [facility] History of tobacco use VA-TOBACCO FORMER USER 04/09/2023 [facility] History of tobacco use VA-TOBACCO NEVER USED 01/10/2022 [facility] History of tobacco use VA-TOBACCO FORMER USER 09/04/2021 [facility] History of tobacco use VA-TOBACCO FORMER USER 07/26/2020 [facility] History of tobacco use VA-TOBACCO QUIT 15 YRS OR MORE 04/25/2020 [facility] History of tobacco use VA-TOBACCO NEVER USED 04/08/2019 [facility] History of tobacco use QUIT TOBACCO >7 YEARS AGO 10/17/2016 [facility] History of tobacco use V7-NO TOBACCO USE > 7 YEARS 03/21/2016 38 YEARS [facility] History of tobacco use NON-TOBACCO USER 04/05/2015 [facility] History of tobacco use V7-NO TOBACCO USE > 7 YEARS 04/05/2015 [facility] History of tobacco use V7-LIFETIME TOBACCO NON USER 07/19/2014 [facility] History of tobacco use V7-LIFETIME TOBACCO NON USER 05/30/2013 [facility] History of tobacco use V7-NO TOBACCO USE > 7 YEARS 06/03/2012 [facility] History of tobacco use V7-LIFETIME TOBACCO NON USER 05/09/2011 [facility] History of tobacco use V7-NO TOBACCO USE > 7 YEARS 06/03/2009 [facility] History of tobacco use V7-TOBACCO QUIT DATE 03/09/2008 [facility] History of tobacco use V7-HX TOBACCO USER >12 MONTHS <7 YEARS 03/09/2008 [facility] History of tobacco use V7-LIFETIME TOBACCO NON USER 01/31/2007 [facility] History of tobacco use V7-LIFETIME NON/TOBACCO USER 01/01/2006 [facility] History of tobacco use LIFETIME NON-TOBACCO USER 12/10/2002 [facility] History of tobacco use CURRENT NON-TOBACCO USER-HX OF USE 11/13/2001 [facility] History of tobacco use TOBACCO USE 03/18/2001 stopped long ago [facility] History of tobacco use PREVIOUS SMOKER 12/03/2000 [facility] Plan of Care List of future care activities from [facility] facilities. Additional future care activities may be listed in the Assessment and Plan section. Date/Time Care Activity Care Activity Detail Facili ty 09/29/2025 AMBULATORY - MEDICINE AMBULATORY - MEDICI [facility] Advance Directives List of completed, amended, or rescinded Advance Directives on record at Department of [facility] facilities. An actual copy of the Directive is not included. Date Advance Directive Provider Source 06/02/1997 ADVANCE DIRECTIVE MARILYN BARRERA [facility]
[2025-05-25 18:08] VITALS: BP 126/54; PULSE 65; RESP 16; TEMP 36.7; O2SAT 97
--- OUTSIDE RECORDS SUMMARY | 2025-05-25 18:10 | XMS_ITS | Encounter Summary ---
Author Organization [facility] Address 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
--- OUTSIDE RECORDS SUMMARY | 2025-05-25 18:11 | XMS_ITS | Encounter Summary ---
Author Organization [facility] Address 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
--- OUTSIDE RECORDS SUMMARY | 2025-05-25 18:11 | XMS_ITS | Encounter Summary ---
Author Organization [facility] Address 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
--- OUTSIDE RECORDS SUMMARY | 2025-05-25 18:11 | XMS_ITS | Encounter Summary ---
Author Organization [facility] Address [address] [place] [address] Care Team Providers Care Peg Driver Name Role Phone Unknown, Provider Primary Care Provider Unavaila ble Reason for Visit * Reason Onset Date Comments Med Question 06/18/2024 Encounter Details Date Type Department Care Team (Late st Contact Info) Description 06/18/2024 Telephone [facility] - Centralized Scheduling [address] [place] [address] Thao Neri MD [address] [address] Med Question Social History Tobacco Use Types Packs/Day Years Used Date Smoking Tobacco: Former Smokeless Tobacco: Never Alcohol Use Standard Drinks/Week Comments No 0 (1 standard drink = 0.6 oz pur e alcohol) Sex and Gender Information Value Date Recorded Sex Assigned at Not on file Legal Sex Male 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
--- OUTSIDE RECORDS SUMMARY | 2025-05-25 18:11 | XMS_ITS | Encounter Summary ---
Author Organization [facility] Address 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
--- OUTSIDE RECORDS SUMMARY | 2025-05-25 18:11 | XMS_ITS | Encounter Summary ---
Author Organization [facility] Address 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
--- OUTSIDE RECORDS SUMMARY | 2025-05-25 18:11 | XMS_ITS | Clinical Summary ---
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 [...] vein thrombosis (DVT) of right tibial vein ([facility]) 04/17/2022 Overview (08/26/2024): Last Assessment & Plan: [...] disorder, without long-term current use of insulin ([facility]) 04/17/2022 Diabetic polyneuropathy asso ciated with type 2 diabetes mellitus ([facility]) 04/17/2022 Former smoker 04/17/2022 Overview (08/26/2024): Last Assessment & Plan: Quit 38 years ago -Not candidate for lung cancer screening - is due for abdominal aortic aneurysm screening Gastroesophageal reflux disease without esophagi tis 04/17/2022 Overview (08/26/2024): Last Assessment & Plan: Chronic, stable - omeprazole 20mg Mixed hyperlipidemia 04/17/2022 Type 2 diabetes mellitus wit h hyperglycemia ([facility]) 04/17/2022 Overview (08/26/2024): Diagnosed around 2004. 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 Gender Identity Not on file Sexual Orientation Not on file Last Filed Vital Signs Vital Sign Reading Time Taken Comments Blood Pressure 135/82 08/26/2024 9:10 AM COLORS CUSTODIAN Pulse 64 08/26/2024 8:45 AM COLORS CUSTODIAN Temperature 36.3 C (97.4 F) 03/20/2024 8:24 AM CDT Respiratory Rate 16 08/26/2024 8:45 AM COLORS CUSTODIAN Oxygen Saturation 97% 08/26/2024 8:45 AM COLORS CUSTODIAN Inhaled Oxygen Concentration - - Weight 94.8 kg (209 lb) 08/26/2024 8:45 AM COLORS CUSTODIAN Height 185.4 cm (6' 1) 08/26/2024 8:45 AM COLORS CUSTODIAN Body Mass Index 27.57 08/26/2024 8:45 AM COLORS CUSTODIAN Plan of Treatment Upcoming Encounters Date Type Department Care Team (Late st Contact Info) Description 06/15/2025 10:40 AM CDT Office Visit [facility] Multispecialty Care - [address] [place] [address] Amadeo Armstrong MD [address] [place] [address] Health Maintenance Due Date Last Done Comments [...] 0209/2022, 02/11/2022, Additional history exists PHQ-2 (Physician Crook) 09/23/2024 Pneumococcal Vaccine: 50+ Years Completed 10/17/2016, [...] age to complete this topic Insurance MED [facility] MEDICARE [employer] MEDICAID DEPT OF H[employer] [address] Care Teams Film Sound Coordinator Relationship Specialty Start Date End Date Sahara Lee MD [address] [address] PCP - General INTERNAL MEDICINE 03/20/24
--- OUTSIDE RECORDS SUMMARY | 2025-05-25 18:11 | XMS_ITS | Encounter Summary ---
Author Organization [facility] Address 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) Social History Tobacco Use Types Packs/Day Years Used Date Smoking Tobacco: Never Assessed Sex and Gender Information Value Date Recorded Sex Assigned at Not on file Legal Sex Male 5:24 AM ORDER ENTRY CLERK Gender Identity Not on file Sexual Orientation Not on file documented as of this encounter Plan of Treatment Not on file documented as of this encounter Visit Diagnoses Diagnosis Coronary atherosclerosis of andreafski coronary artery- Primary documented in this encounter Care Teams Security Installer Relationship Specialty Start Date End Date DearCampbell DO [address] [place] [address] PCP - General Family Practice 07/09/22 documented as of this encounter
--- OUTSIDE RECORDS SUMMARY | 2025-05-25 18:11 | XMS_ITS | Encounter Summary ---
Author Organization [facility] Address [address] [place] [address] Care Team Providers Care Monitoring Engineer Name Role Phone DearCampbell DO Primary Care Provider + Encounter Details Date Type Department Care Team (Late st Contact Info) Description 07/09/2002 Outpatient Historical [facility] Internal Medicine [place] [address] [place] [address] Reg Katz MD Social History Tobacco Use Types Packs/Day Years Used Date Smoking Tobacco: Never Assessed Sex and Gender Information Value Date Recorded Sex Assigned at Not on file Legal Sex Male 5:24 AM MANAGER EMERGENCY Gender Identity Not on file Sexual Orientation Not on file documented as of this encounter Plan of Treatment Not on file documented as of this encounter Visit Diagnoses Not on filedocumented in this encounter Care Teams Monitoring Engineer Relationship Specialty Start Date End Date DearCampbell DO [address] [place] [address] PCP - General Family Practice 07/09/22 documented as of this encounter
--- OUTSIDE RECORDS SUMMARY | 2025-05-25 18:11 | XMS_ITS | Encounter Summary ---
Author Organization [facility] Address [address] [place] [address] Care Team Providers Care Loan Interviewer Name Role Phone Abraham Cohn DO Primary Care Provider + Unknown, Provider Primary Care Provider Unavaila ble Encounter Details Date Type Department Care Team (Late st Contact Info) Description 01/05/2021 [facility] Outpatient Visit [facility] Orthopedics - Radiology [address] [place] [address] [place] [address] Document, Scanned Social History Tobacco Use Types Packs/Day Years Used Date Smoking Tobacco: Former Smokeless Tobacco: Never Alcohol Use Standard Drinks/Week Comments No 0 (1 standard drink = 0.6 oz pur e alcohol) Sex and Gender Information Value Date Recorded Sex Assigned at Not on file Legal Sex Male 5:27 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
--- OUTSIDE RECORDS SUMMARY | 2025-05-25 18:11 | XMS_ITS | Encounter Summary ---
Author Organization [facility] Address 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
--- OUTSIDE RECORDS SUMMARY | 2025-05-25 18:11 | XMS_ITS | Clinical Summary ---
Author Organization [facility] Address [address] [place] [address] Care Team Providers Care Ways Operator Name Role Phone Unknown, Provider Primary Care Provider Unavaila ble Source Comments [facility],non-owned Affiliates and Associated Physician Practices is amultiple site organization consisting of ambulatory clinics and hospital sitesin [place], [place], [place]. This disclosure is being madepursuant to the Care Everywhere program and may not contain all information available regarding this patient. Last updated 18.[facility] Allergies Active Allergy Reactions Criticality Noted Date [...] daily 2 Active ergocalciferol (DRISDOL) 1.25 MG (58007 UT) capsule Take 50,000 Units by mouth [...] SPLIT PF IM (FLUVIRIN) 09/24 INFLUENZA A [id number] VACCINE 11/24/2009 INFLUENZA VACCINE 06/18/2015,06/03/2012 PNEUMOCOCCAL PCV [...] on file Legal Sex Male 5:27 AM CONTRACT ADMIN Gender Identity Not on file Sexual Orientation [...] Td or Tdap) 06/03/2022 06/03/2012, 12/08/2000, 02/24/1998 DEPRESSION SCREENING 09/23/2024 12/25/2021 MEDICARE AWV CALENDAR YEAR 2024 09/06/2020 COVID-19 VACCINE ( - season) 2025 INFLUENZA VACCINE (#1) 2025 2, 08/18/2021, 06/23/2021, [...] this topic Medical Devices Explanted Type Area Ssis Etl Developer Device Identifier Shelf Expiration Date Model / Serial / Lot Stent Tria Sft [id number] Implanted:Qty: 1 on 03/13/2022 by Chace Dale MD at [facility] [place] Explanted:Qty: 1 on 04/03/2022 by Chace Dale MD at [facility] [place] Left: [employer] 12/06/2024 [id number] / / [id number] Insurance MANAGED MEDICARE [facility] [place]ICAID [place] [facility] MANAGED MEDICARE ADV [place]ID - [place] [facility] MANAGED MEDICARE ADV Member Subscriber Plan / Payer (Ef fective 2024-Present) Name:Mary Grace Lau Relation to Subscriber:Self Name:Yaya Mary Grace Payer ID:[id number] (NAIC) Type:Medicare-Managed Care Address: [place] [phone] [place]ID [place] Member Subscriber Plan / Payer (Ef fective for All Dates) Name:Mary Grace Lau Member ID:Not on file Relation to Subscriber:Self Name:YayaMary Grace Payer ID:Not on file Group ID:Not on file Type:Medicaid [place] Address: [place] [id number] [facility] MANAGED MEDICARE ADV Member Subscriber Plan / Payer (Ef fective 2024-Present) Name:Mary Grace Lau Relation to Subscriber:Self Name:Mary Grace Lau Payer ID:[id number] ([facility]) Type:Medicare-Managed Care Address: [address] [place]ICAID - [place] [facility] MANAGED MEDICARE ADV Member Subscriber Plan / Payer (Ef fective 2024-Present) Name:Mary Grace Lau Relation to Subscriber:Self Name:Mary Grace Lau Payer ID:[id number] (NAIC) Type:Medicare-Managed Care Address: [address] * Guarantor: MARY GRACE LAU Account [...] Group ID:Not on file Type:Medicaid [place] Address: [address] MANAGED MEDICARE ADV Member Subscriber Plan / Payer (Ef fective 2024-) Name:Mary Grace Lau Relation to Subscriber:Self Name:Mary Grace Lau Payer ID:[id number] (NAIC) Type:Medicare-Managed Care Address: [place] [phone] * Guarantor: MARY GRACE LAU Account Type [...] Group ID:Not on file Type:Medicaid [place] Address: [address] MANAGED MEDICARE ADV * Guarantor: MARY GRACE LAU Account Type Relation to Patient Date of Phone Billing Address Personal/Family [address] [place] [address] MEDICAID - [place] [employer] MANAGED MEDICARE ADV [...] 7:21 PM 12/01/2019 1:11 AM Care Teams Ways Operator Relationship Specialty Start Date End Date Unknown, Provider PCP - General 02/28/24
--- OUTSIDE RECORDS SUMMARY | 2025-05-25 18:11 | XMS_ITS | Clinical Summary ---
Author Organization [facility] Address [address] [facility] [address] [address] Phone Care Team Providers Care Fence Gate Assembler Name Role Phone Dear, Campbell Bullard [...] hyperglycemia, without long-term current use of insulin (CMS/[facility]) INJECT 0.5ML(1.5MG) SUBCUTANEOUS EVERY 7 DAYS 6 [...] on file Legal Sex Male 5:24 AM FLOOR SPECIALIST Gender Identity Not on file Sexual [...] history exists Medical Devices Implanted Type Area Lead Technical Writer Device Identifier Shelf Expiration Date Model / Serial / Lot Knee Description:bilateral Hardware Description:head Procedures Procedure Name Priority Date/Time Associated Diagnosis Comments HEMOGLOBIN A1C Routine 12/07/2023 11:36 PM CDT MICROALBUMIN/CREATIN INE RATIO, RANDOM UR Routine 09/29/2020 1:44 PM FLOOR SPECIALIST 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 AVG GLUCOSE, A1C 171 mg/dL 12/08/2023 10:41 AM CDT [facility] [employer] [facility] Blood Venipuncture / Unknown 12/07/2023 11:36 PM CDT 12/07/2023 11:40 PM CDT Narrative [facility] - 12/08/2023 10:41 AM CDT HGB A1C INTERPRETATION NORMAL: <5.7% PRE-DIABETES: 5.7 - 6.4% DIABETES: 6.5% OR GREATER us Valdez Castro MD CHEMISTRY ORDERABLES Final Resul t [facility] [employer] [facility]# [id number] [address] [place] [address] * (ABNORMAL) MICROALBUMIN/CREATININE RATIO, RANDOM UR (09/29/2020 1:44 PM FLOOR SPECIALIST) MICROALBUMIN, URINE 2.2 No Reference Range mg/dL 09/29/2020 2:48 PM FLOOR SPECIALIST [facility] CREATININE, URINE 38.5(L) 40.0 - 278.0 mg/dL 09/29/2020 2:48 PM FLOOR SPECIALIST [facility] Comment:Reference Range vari es with fluid intake and diet. MICROALBUMIN/ CREAT RATIO, UR 57.1(H) <17.0 mg/g 09/29/2020 2:48 PM [facility] [employer] [facility] Urine URINE SPECIMEN OBTAINED BY CLEAN CATCH PROCEDURE / Unknown Collection / Unknown 09/29/2020 1:44 PM FLOOR SPECIALIST 09/29/2020 1:59 PM FLOOR SPECIALIST [facility] [employer] [facility] - 09/29/2020 2:48 PM FLOOR SPECIALIST Condition Microalbumin/Creat ratio Normal Males <17 Normal Females <25 Microalbuminuria Males 17-299 Microalbuminuria Females 25-299 Overt proteinuria >=300 Rafy Ward MD URINE ORDERABLES Final Result [facility] [employer] [facility]# [id number] [address] [facility] [place] [address] * LIPID PANEL (09/29/2020 1:44 PM FLOOR SPECIALIST) CHOLESTEROL 93 <200 mg/dL 09/29/2020 2:38 PM [facility] [employer] [facility] TRIGLYCERIDE 72 <150 mg/dL 09/29/2020 2:38 PM [facility] [employer] [facility] HDL 53 40 - 59 mg/dL 09/29/2020 2:38 PM [facility] [employer] [facility] LDL CALCULATED 26 <100 mg/dL 09/29/2020 2:38 PM [facility] NON-HDL CHOLESTEROL 40 <130 mg/dL 09/29/2020 2:38 PM [facility] Blood Venipuncture / Unknown 09/29/2020 1:44 PM FLOOR SPECIALIST 09/29/2020 1:59 PM FLOOR SPECIALIST [facility] [employer] [facility] - 09/29/2020 2:38 PM FLOOR SPECIALIST TOTAL CHOLESTEROL mg/dL Desirable <200 Borderline high [...] Ward MD CHEMISTRY ORDERABLES Final Re sult [facility]# [id number] [address] [place] [place] [address] from Last 3 Months or Most Recently Relevant to Health Maintenance Insurance RX [employer] RX Member Subscriber Plan / Payer (Ef fective 2023-Present) Name:Cosme Javier Relation to Subscriber:Self Name:Cosme Javier Payer ID:Not on file Group ID:[id number] Type:RX Medicare Part D Address: [address] Advance Directives For more information, please contact: [phone] * NO CPR (In Event of Cardiopulmonary [...] 9:43 AM 07/15/2017 5:31 PM Care Teams Fence Gate Assembler Relationship Specialty Start Date End Date Dear, Campbell Bullard DO [facility] [address] [place] [address] PCP - General Family Practice 07/09/22
--- OUTSIDE RECORDS SUMMARY | 2025-05-25 18:11 | XMS_ITS | Encounter Summary ---
Author Organization [facility] Address 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
--- OUTSIDE RECORDS SUMMARY | 2025-05-25 18:11 | XMS_ITS | Encounter Summary ---
Author Organization [facility] Address [address] [place] [address] Care Team Providers Care Senior Net Engineer Name Role Phone DearCampbell DO Primary Care Provider + Encounter Details Date Type Department Care Team (Late st Contact Info) Description 12/04/1999 Outpatient Historical [facility] [place] [address] [place] [phone] Reg Katz MD Social History Tobacco Use Types Packs/Day Years Used Date Smoking Tobacco: Never Assessed Sex and Gender Information Value Date Recorded Sex Assigned at Not on file Legal Sex Male 5:24 AM SCOURER Gender Identity Not on file Sexual Orientation Not on file documented as of this encounter Plan of Treatment Not on file documented as of this encounter Visit Diagnoses Not on filedocumented in this encounter Care Teams Senior Net Engineer Relationship Specialty Start Date End Date DearCampbell DO [address] [place] [address] PCP - General Family Practice 07/09/22 documented as of this encounter
--- OUTSIDE RECORDS SUMMARY | 2025-05-25 18:11 | XMS_ITS | Encounter Summary ---
Author Organization [facility] Address 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
--- OUTSIDE RECORDS SUMMARY | 2025-05-25 18:11 | XMS_ITS | Clinical Summary ---
Author Organization [facility] er Address [address] [place] [address] Care Team Providers Care Field Artillery Operations Man Name Role Phone No, Physician Unavailable Dear, [...] 08/06/2022 Assessment & Plan (08/06/2022 12:13 PM PICK UP ATTENDANT): Chronic, worsening - Refer to vascular surgery [...] 04/17/2022 Assessment & Plan (11/13/2022 2:04 PM PICK UP ATTENDANT): Chronic, R anterior tibial (12/12); unprovoked per [...] surgery Assessment & Plan (08/06/2022 12:10 PM PICK UP ATTENDANT): Chronic, R anterior tibial (12/12); unprovoked per [...] 04/17/2022 Assessment & Plan (08/06/2022 12:14 PM PICK UP ATTENDANT): Chronic Complications: CAD, HTN, Neuropathy A1c: 8.0 [...] 04/17/2022 Assessment & Plan (08/06/2022 12:20 PM PICK UP ATTENDANT): Chronic, controlled - lisinopril 2.5mg Assessment & [...] omeprazole 20mg Coronary artery disease invo lving gambell coronary artery of gambell heart without angina pectoris 04/17/2022 Assessment & [...] Department Care Team Description 03/09/2025 Orders Only [facility] Cardiology [address] [place] [address] Delmer Prince MD 03/03/2025 Telephone [facility] [address] [place] [address] Delmer Prince MD 03/02/2025 Orders Only [facility] Health Information Management [address] [place] [address] Delmer Prince MD from Last 3 Months [...] Comments Blood Pressure 137/63 11/20/2022 4:30 PM PICK UP ATTENDANT Pulse 65 11/20/2022 4:55 PM PICK UP ATTENDANT Temperature 36 C (96.8 F) 11/20/2022 10:41 AM PICK UP ATTENDANT Respiratory Rate 18 11/20/2022 10:41 AM PICK UP ATTENDANT Oxygen Saturation 100% 11/20/2022 4:55 PM PICK UP ATTENDANT Inhaled Oxygen Concentration - - Weight 104.8 kg (231 lb) 11/20/2022 10:41 AM PICK UP ATTENDANT Height 177.8 cm (5' 10) 11/13/2022 1:42 PM PICK UP ATTENDANT Body Mass Index 33.15 11/13/2022 1:42 PM PICK UP ATTENDANT Plan of Treatment Health Maintenance Due Date [...] 11/21, 01/06/2019, Additional history exists Influenza Vaccine (#1) 2025 2, 06/23/2021, 06/23/2020, Additional history exists Pneumococcal vaccine [...] SCAN 03/02/2025 EGFR STAT 11/20/2022 3:11 PM PICK UP ATTENDANT HEMOGLOBIN A1C Routine 11/13/2022 2:20 PM PICK UP ATTENDANT 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, without long-term current use of insulin (HCC) HEPATITIS C RNA, QUANTITATIVE, PCR Routine 05/08/2022 10:08 AM CDT Need for hepatitis C screening test LIPID PANEL Routine 04/17/2022 9:43 AM CDT Coronary artery disease involving gambell coronary artery of gambell heart without angina pectoris ALBUMIN CREATININE RATIO, URINE Routine 04/17/2022 9:43 AM CDT 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, without long-term current use of insulin (HCC) OCCULT BLOOD, FECAL (FIT) Routine 11/22/2017 11:15 AM PICK UP ATTENDANT from Last 3 Months or Most Recently Relevant to Health Maintenance Results * Cardiology Document Scan (03/03/2025 3:16 PM CDT) Anatomical Region Laterality Modality Other Delmer Prince MD [facility] Final Result * Cardiology Document Scan (03/02/2025) Anatomical Region Laterality Modality Other Delmer Prince MD [facility] Final Result * eGFR (11/20/2022 3:11 PM PICK UP ATTENDANT) Pathologist [facility] eGFR 95 mL/min/1. 73 m2 [facility] Comment: Interpretive Data Reference Interval Normal [...] last reviewed 2021. Blood 11/20/2022 3:11 PM PICK UP ATTENDANT 11/20/2022 3:16 PM PICK UP ATTENDANT Abraham Coello MD LAB BLOOD ORDERABLES Fi nal Result Performing Organization Address [facility] de Phone Number [address] [address] * (ABNORMAL) Hemoglobin A1c (11/13/2022 2:20 PM PICK UP ATTENDANT) Pathologist [facility] Hgb A1C 8.6(H) 4.0 - 5.6 % [facility] Estimated Average Glucose 200 mg/dL [facility] Comment: The ADA recommends reporting an estimated Average Glucose (eAG) with all Hemoglobin A1c results using the equation derived from a study of 507 normal and diabetic adults. Minority populations were underrepresented and children were not included. (Diabetes Care 31:5331-3106, 2008). The eAG is not equivalent to a fasting glucose. Blood 11/13/2022 2:20 PM PICK UP ATTENDANT 11/13/2022 2:41 PM PICK UP ATTENDANT Campbell Bullard Dear DO LAB BLOOD ORDERABLES Fin al Result Performing Organization Address [facility] Co de Phone Number [facility] [address] [place] [address] * Hepatitis C (HCV) RNA PCR, quantitative [...] - 05/10/2022 8:17 AM CDT Performed at: [address] [id number] Rayon Coner: Jamar Cooper MD, Phone: [phone] Campbell Bullard Dear DO LAB MICROBIOLOGY - GENER AL ORDERABLES Edited Result - Final Performing Organization Address [facility] Co de Phone Number [facility] * (ABNORMAL) Albumin Creatinine Ratio, Urine (04/17/2022 9:43 AM CDT) Pathologist [facility] Creatinine ur 54.0 Not Estab. mg/dL [facility] - 01 Microalbumin, ur 35.2 Not Estab. ug/mL [facility] - 01 Microalbumin/cre at ratio 65(H) 0 - 29 mg/g creat [facility] - 01 Comment: Normal: 0 - 29 Moderately increased: 30 - 300 Severely increased: >300 Urine 04/17/2022 9:43 AM CDT 04/17/2022 Narrative [facility] - 04/18/2022 10:10 AM CDT Performed at: [address] [id number] Rayon Coner: Thad Peacock PhD, Phone: [phone] Campbell Bullard Dear DO LAB URINE ORDERABLES Fin al Result Performing Organization Address City/[facility]/ZIP Co de Phone Number [facility] - 01 * [...] 04/18/2022 7:10 AM CDT Performed at: - [address] [id number] Rayon Coner: Thad Peacock PhD, Phone: [phone] Campbell Oswald DO LAB BLOOD ORDERABLES Fin al Result [facility] - 01 * Occult blood, fecal non neoplasm screening (11/22/2017 11:15 AM PICK UP ATTENDANT) Collection date 1, feces [id number] [facility] Collection time 1, feces 1,115 [facility] Occult blood, fecal Negative Negative [facility] Stool 11/22/2017 11:1 5 AM PICK UP ATTENDANT 11/22/2017 1:19 PM PICK UP ATTENDANT Narrative [facility] - 11/22/2017 2:38 PM PICK UP ATTENDANT Hakeem Muro DO LAB BODY FLUIDS AND STOOLS ORDERABLES Final Result [facility] [address] [facility] [place] [address] from Last 3 Months or Most Recently Relevant to Health Maintenance Insurance [facility] MEDICARE ADVANTAGE IDPA Care Teams Field Artillery Operations Man Relationship Specialty Start Date End Date Dear, Campbell Bullard DO PCP - General Family Medicine 04/13/22 No, Physician 12/21/16
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
--- OUTSIDE RECORDS SUMMARY | 2025-05-25 21:11 | XMS_ITS | Encounter Summary ---
Author Organization [facility] Address 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
--- OUTSIDE RECORDS SUMMARY | 2025-05-25 21:11 | XMS_ITS | Clinical Summary ---
Author Organization [facility] er Address [address] [place] [address] Care Team Providers Care Fire Sprinkler Inspector Name Role Phone No, Physician Unavailable Dear, [...] 08/06/2022 Assessment & Plan (08/06/2022 12:13 PM INTRUSION ANALYST): Chronic, worsening - Refer to vascular surgery [...] 04/17/2022 Assessment & Plan (11/13/2022 2:04 PM INTRUSION ANALYST): Chronic, R anterior tibial (12/12); unprovoked per [...] surgery Assessment & Plan (08/06/2022 12:10 PM INTRUSION ANALYST): Chronic, R anterior tibial (12/12); unprovoked per [...] 04/17/2022 Assessment & Plan (08/06/2022 12:14 PM INTRUSION ANALYST): Chronic Complications: CAD, HTN, Neuropathy A1c: 8.0 [...] 04/17/2022 Assessment & Plan (08/06/2022 12:20 PM INTRUSION ANALYST): Chronic, controlled - lisinopril 2.5mg Assessment & [...] omeprazole 20mg Coronary artery disease invo lving [place] coronary artery of [place] heart without angina pectoris 04/17/2022 Assessment & [...] Department Care Team Description 03/09/2025 Orders Only [facility] Cardiology [address] [place] [address] Delmer Prince MD 03/03/2025 Telephone [facility] Cardiology [address] [place] [address] Delmer Prince MD 03/02/2025 Orders Only [facility] Health Information Management [address] [place] [address] Delmer Prince MD from Last 3 Months [...] Comments Blood Pressure 137/63 11/20/2022 4:30 PM INTRUSION ANALYST Pulse 65 11/20/2022 4:55 PM INTRUSION ANALYST Temperature 36 C (96.8 F) 11/20/2022 10:41 AM INTRUSION ANALYST Respiratory Rate 18 11/20/2022 10:41 AM INTRUSION ANALYST Oxygen Saturation 100% 11/20/2022 4:55 PM INTRUSION ANALYST Inhaled Oxygen Concentration - - Weight 104.8 kg (231 lb) 11/20/2022 10:41 AM INTRUSION ANALYST Height 177.8 cm (5' 10) 11/13/2022 1:42 PM INTRUSION ANALYST Body Mass Index 33.15 11/13/2022 1:42 PM INTRUSION ANALYST Plan of Treatment Health Maintenance Due Date [...] SCAN 03/02/2025 EGFR STAT 11/20/2022 3:11 PM INTRUSION ANALYST HEMOGLOBIN A1C Routine 11/13/2022 2:20 PM INTRUSION ANALYST 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, without long-term current use of insulin (HCC) HEPATITIS C RNA, QUANTITATIVE, PCR Routine 05/08/2022 10:08 AM CDT Need for hepatitis C screening test LIPID PANEL Routine 04/17/2022 9:43 AM CDT Coronary artery disease involving [place] coronary artery of [place] heart without angina pectoris ALBUMIN CREATININE RATIO, URINE Routine 04/17/2022 9:43 AM CDT 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, without long-term current use of insulin (HCC) OCCULT BLOOD, FECAL (FIT) Routine 11/22/2017 11:15 AM INTRUSION ANALYST from Last 3 Months or Most Recently Relevant to Health Maintenance Results * Cardiology Document Scan (03/03/2025 3:16 PM CDT) Anatomical Region Laterality Modality Other Delmer Prince MD [facility] D[facility] Final Result * Cardiology Document Scan (03/02/2025) Anatomical Region Laterality Modality Other Delmer Prince MD CV CARDIAC [facility] Final Result * eGFR (11/20/2022 3:11 PM INTRUSION ANALYST) Pathologist [facility] eGFR 95 mL/min/1. 73 m2 [facility] Comment: Interpretive Data Reference Interval Normal >/= [...] last reviewed 2021. Blood 11/20/2022 3:11 PM INTRUSION ANALYST 11/20/2022 3:16 PM INTRUSION ANALYST Abraham Coello MD LAB BLOOD ORDERABLES Fi nal Result Performing Organization Address [facility] de Phone Number [address] [address] * (ABNORMAL) Hemoglobin A1c (11/13/2022 2:20 PM INTRUSION ANALYST) Pathologist [facility] Hgb A1C 8.6(H) 4.0 - 5.6 % [facility] Estimated Average Glucose 200 mg/dL [facility] Comment: The ADA recommends reporting an estimated Average Glucose (eAG) with all Hemoglobin A1c results using the equation derived from a study of 507 normal and diabetic adults. Minority populations were underrepresented and children were not included. (Diabetes Care 31:2532-0307, 2008). The eAG is not equivalent to a fasting glucose. Blood 11/13/2022 2:20 PM INTRUSION ANALYST 11/13/2022 2:41 PM INTRUSION ANALYST Campbell Bullard Dear DO LAB BLOOD ORDERABLES Fin al Result Performing Organization Address [facility] Co de Phone Number [facility] [address] [place] [phone] * Hepatitis C (HCV) RNA PCR, quantitative [...] - 05/10/2022 8:17 AM CDT Performed at: [address] [id number] Irrigation Equipment Mechanic: Jamar Cooper MD, Phone: [phone] Campbell Bullard Dear DO LAB MICROBIOLOGY - GENER AL ORDERABLES Edited Result - Final Performing Organization Address [facility] Co de Phone Number [facility] * (ABNORMAL) Albumin Creatinine Ratio, Urine (04/17/2022 9:43 AM CDT) Pathologist [facility] Creatinine ur 54.0 Not Estab. mg/dL [facility] - 01 Microalbumin, ur 35.2 Not Estab. ug/mL [facility] - 01 Microalbumin/cre at ratio 65(H) 0 - 29 mg/g creat [facility] - 01 Comment: Normal: 0 - 29 Moderately increased: 30 - 300 Severely increased: >300 Urine 04/17/2022 9:43 AM CDT 04/17/2022 Narrative [facility] - 04/18/2022 10:10 AM CDT Performed at: [address] [id number] Irrigation Equipment Mechanic: Thad Peacock PhD, Phone: [phone] Campbell Bullard Dear DO LAB URINE ORDERABLES Fin al Result Performing Organization Address City/[facility]/ZIP Co de Phone Number [facility] - 01 * Lipid panel [...] 04/18/2022 7:10 AM CDT Performed at: - [address] [id number] Irrigation Equipment Mechanic: Thad Peacock PhD, Phone: [phone] Campbell Oswald DO LAB BLOOD ORDERABLES Fin al Result [facility] - 01 * Occult blood, fecal non neoplasm screening (11/22/2017 11:15 AM INTRUSION ANALYST) Collection date 1, feces [id number] [facility] Collection time 1, feces 1,115 [facility] Occult blood, fecal Negative Negative [facility] Stool 11/22/2017 11:1 5 AM INTRUSION ANALYST 11/22/2017 1:19 PM INTRUSION ANALYST Narrative [facility] - 11/22/2017 2:38 PM INTRUSION ANALYST Hakeem Muro DO LAB BODY FLUIDS AND STOOLS ORDERABLES Final Result [facility] [address] Department [place] [address] from Last 3 Months or Most Recently Relevant to Health Maintenance Insurance [facility] MEDICARE [facility] Address: [facility] [address] [place] [address] IDPA Care Teams Fire Sprinkler Inspector Relationship Specialty Start Date End Date Dear, Campbell Bullard DO PCP - General Family Medicine 04/13/22 No, Physician 12/21/16
--- OUTSIDE RECORDS SUMMARY | 2025-05-25 21:11 | XMS_ITS | Clinical Summary ---
Author Organization [facility] Address [address] [place] [address] Care Team Providers Care Soap Press Feeder Name Role Phone Unknown, Provider Primary Care Provider Unavaila ble Source Comments [facility],non-owned Affiliates and Associated Physician Practices is amultiple site organization consisting of ambulatory clinics and hospital sitesin [place], [place], [place] and [place]. This disclosure is being madepursuant to the Care Everywhere program and may not contain all information available regarding this patient. Last updated 18.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 Gender Identity Not on file Sexual [...] this topic Medical Devices Explanted Type Area Employment Interviewer Device Identifier Shelf Expiration Date Model / Serial / Lot Stent Tria Sft [id number] Implanted:Qty: 1 on 03/13/2022 by Chace Dale MD at [facility] Explanted:Qty: 1 on 04/03/2022 by Chace Dale MD at [facility] Left: Ureter Conductor Scimed 12/06/2024 [id number] / / [id number] Insurance MANAGED MEDICARE [facility] MEDICAID - [place] - [place] [facility] MANAGED MEDICARE ADV MEDICAID - [place] [employer] MANAGED MEDICARE ADV Member Subscriber Plan / Payer (Ef fective 2024-Present) Name:Mary Grace Lau Relation to Subscriber:Self Name:Yaya Mary Grace Payer ID:[id number] (NAIC) Type:Medicare-Managed Care Address: [place] [phone] [place]ID - [place] Member Subscriber Plan / Payer (Ef fective for All Dates) Name:Mary Grace Lau Member ID:Not on file Relation to Subscriber:Self Name:YayaMary Grace Payer ID:Not on file Group ID:Not on file Type:Medicaid [place] Address: [place] [id number] [employer] MANAGED MEDICARE ADV Member Subscriber Plan / Payer (Ef fective 2024-Present) Name:Mary Grace Lau Relation to Subscriber:Self Name:Mary Grace Lau Payer ID:[id number] ([facility]) Type:Medicare-Managed Care Address: [address] MEDICAID - [place] [employer] MANAGED MEDICARE ADV Member Subscriber Plan / Payer (Ef fective 2024-Present) Name:Mary Grace Lau Relation to Subscriber:Self Name:Mary Grace Lau Payer ID:[id number] (NAIC) Type:Medicare-Managed Care Address: [address] * Guarantor: MARY GRACE LAU Account [...] Group ID:Not on file Type:Medicaid [place] Address: [address] MANAGED MEDICARE ADV Member Subscriber Plan / Payer (Ef fective 2024-) Name:Mary Grace Lau Relation to Subscriber:Self Name:Mary Grace Lau Payer ID:[id number] (NAIC) Type:Medicare-Managed Care Address: [place] [phone] * Guarantor: MARY GRACE LAU Account Type [...] Group ID:Not on file Type:Medicaid [place] Address: [address] MANAGED MEDICARE ADV * Guarantor: MARY GRACE LAU Account Type Relation to Patient Date of Phone Billing Address Personal/Family [address] [place] [address] MEDICAID - [place] [employer] MANAGED MEDICARE ADV [...] 7:21 PM 12/01/2019 1:11 AM Care Teams Soap Press Feeder Relationship Specialty Start Date End Date Unknown, Provider PCP - General 02/28/24
--- OUTSIDE RECORDS SUMMARY | 2025-05-25 21:11 | XMS_ITS | Encounter Summary ---
Author Organization [facility] Address 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
--- OUTSIDE RECORDS SUMMARY | 2025-05-25 21:11 | XMS_ITS | Encounter Summary ---
Author Organization [facility] Address 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
--- OUTSIDE RECORDS SUMMARY | 2025-05-25 21:12 | XMS_ITS | Encounter Summary ---
Author Organization [facility] Address 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
--- OUTSIDE RECORDS SUMMARY | 2025-05-25 21:12 | XMS_ITS | Encounter Summary ---
Author Organization [facility] Address 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
--- OUTSIDE RECORDS SUMMARY | 2025-05-25 21:12 | XMS_ITS | Clinical Summary ---
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 Gender Identity Not on file Sexual [...] history exists Medical Devices Implanted Type Area Asbestos Worker Helper Device Identifier Shelf Expiration Date Model / Serial / Lot Knee Description:bilateral Hardware Description:head Procedures Procedure Name Priority Date/Time Associated Diagnosis Comments HEMOGLOBIN A1C Routine 12/07/2023 11:36 PM CDT MICROALBUMIN/CREATIN INE RATIO, RANDOM UR Routine 09/29/2020 1:44 PM STRAIGHT SLICING MACHINE OPERATOR 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 AVG GLUCOSE, A1C 171 mg/dL 12/08/2023 10:41 AM CDT [facility] [employer] [facility] Blood Venipuncture / Unknown 12/07/2023 11:36 PM CDT 12/07/2023 11:40 PM CDT Narrative [facility] - 12/08/2023 10:41 AM CDT HGB A1C INTERPRETATION NORMAL: <5.7% PRE-DIABETES: 5.7 - 6.4% DIABETES: 6.5% OR GREATER us Valdez Castro MD CHEMISTRY ORDERABLES Final Resul t [facility] [employer] [facility]# [id number] [address] [facility] [place] [address] * (ABNORMAL) MICROALBUMIN/CREATININE RATIO, RANDOM UR (09/29/2020 1:44 PM STRAIGHT SLICING MACHINE OPERATOR) MICROALBUMIN, URINE 2.2 No Reference Range mg/dL 09/29/2020 2:48 PM STRAIGHT SLICING MACHINE OPERATOR [facility] CREATININE, URINE 38.5(L) 40.0 - 278.0 mg/dL 09/29/2020 2:48 PM STRAIGHT SLICING MACHINE OPERATOR [facility] Comment:Reference Range vari es with fluid intake and diet. MICROALBUMIN/ CREAT RATIO, UR 57.1(H) <17.0 mg/g 09/29/2020 2:48 PM [facility] [employer] [facility] Urine URINE SPECIMEN OBTAINED BY CLEAN CATCH PROCEDURE / Unknown Collection / Unknown 09/29/2020 1:44 PM STRAIGHT SLICING MACHINE OPERATOR 09/29/2020 1:59 PM STRAIGHT SLICING MACHINE OPERATOR [facility] [employer] [facility] - 09/29/2020 2:48 PM STRAIGHT SLICING MACHINE OPERATOR Condition Microalbumin/Creat ratio Normal Males <17 Normal Females <25 Microalbuminuria Males 17-299 Microalbuminuria Females 25-299 Overt proteinuria >=300 Rafy Ward MD URINE ORDERABLES Final Result [facility]# [id number] [address] [facility] [place] [address] * LIPID PANEL (09/29/2020 1:44 PM STRAIGHT SLICING MACHINE OPERATOR) CHOLESTEROL 93 <200 mg/dL 09/29/2020 2:38 PM [facility] [employer] [facility] TRIGLYCERIDE 72 <150 mg/dL 09/29/2020 2:38 PM [facility] HDL 53 40 - 59 mg/dL 09/29/2020 2:38 PM [facility] [employer] LDL CALCULATED 26 <100 mg/dL 09/29/2020 2:38 PM [facility] NON-HDL CHOLESTEROL 40 <130 mg/dL 09/29/2020 2:38 PM [facility] Blood Venipuncture / Unknown 09/29/2020 1:44 PM STRAIGHT SLICING MACHINE OPERATOR 09/29/2020 1:59 PM STRAIGHT SLICING MACHINE OPERATOR [facility] [employer] [facility] - 09/29/2020 2:38 PM STRAIGHT SLICING MACHINE OPERATOR TOTAL CHOLESTEROL mg/dL Desirable <200 Borderline [...] Ward MD CHEMISTRY ORDERABLES Final Re sult [facility]# [id number] [address] [place] [address] from Last 3 Months or Most Recently Relevant to Health Maintenance Insurance RX [employer] RX Member Subscriber Plan / Payer (Ef fective 2023-Present) Name:Cosme Javier Relation to Subscriber:Self Name:Cosme Jvaier Payer ID:Not on file Group ID:[id number] Type:RX Medicare Part D Address: [place] [place] Advance Directives For more information, please contact: [phone] * NO CPR (In Event of Cardiopulmonary [...] 9:43 AM 07/15/2017 5:31 PM Care Teams Digital Assistant Relationship Specialty Start Date End Date Dear, Campbell Bullard DO [facility] [place] [address] PCP - General Family Practice 07/09/22
--- OUTSIDE RECORDS SUMMARY | 2025-05-25 21:12 | XMS_ITS | Encounter Summary ---
Author Organization [facility] Address 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
--- OUTSIDE RECORDS SUMMARY | 2025-05-25 21:12 | XMS_ITS | Encounter Summary ---
Author Organization [facility] Address 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
--- OUTSIDE RECORDS SUMMARY | 2025-05-25 21:12 | XMS_ITS | Patient Health Record ---
Author Organization [facility] Address [address] [facility] [address] [facility] [address] [place] [address] Care Team Providers Care Furnace Attendant Name Role Phone Alana Avilaerjit Unavailable [phone] Reason For Referral No Information Problems Problem Type SNOMED Code ICD Code Onset Dates Problem Status W/U Status Risk Notes Problem Diabetic renal disease (627135478) Type 2 diabetes mellitus with diabetic chronic kidney disease (E11.22) Active confirmed Problem Hyperlipidemia (68789550) Hyperlipidemia, unspecified (E78.5) Active confirmed Problem Essential hypertension (34826754) Essential hypertension (I10) Active confirmed Problem Chronic kidney disease stage 3 (disorder) (368916298) Stage 3 chronic kidney disease (N18.30) Active confirmed Encounters Encounter Location Date Provider Diagnosis [place] [facility] [address] [facility] [address] [place] [address] 09/09/2024 Melvin Avila Stage 3 chronic kidn [...]
--- OUTSIDE RECORDS SUMMARY | 2025-05-25 21:12 | XMS_ITS | Encounter Summary ---
Author Organization [facility] Health Address [address] [facility] [place] [address] Care Team Providers Care Painting Contractor Name Role Phone Abraham Cohn DO Primary Care Provider + Unknown, Provider Primary Care Provider Unavaila ble Encounter Details Date Type Department Care Team (Late st Contact Info) Description 01/05/2021 [facility] Outpatient Visit [facility] Orthopedics - Radiology [address] [place] [address] [place] [address] Document, Scanned Social History Tobacco Use Types Packs/Day Years Used Date Smoking Tobacco: Former Smokeless Tobacco: Never Alcohol Use Standard Drinks/Week Comments No 0 (1 standard drink = 0.6 oz pur e alcohol) Sex and Gender Information Value Date Recorded Sex Assigned at Not on file Legal 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
--- OUTSIDE RECORDS SUMMARY | 2025-05-25 21:13 | XMS_ITS | Encounter Summary ---
Author Organization [facility] Address 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
--- OUTSIDE RECORDS SUMMARY | 2025-05-25 21:13 | XMS_ITS | Encounter Summary ---
Author Organization [facility] Address [address] [place] [address] Care Team Providers Care Cashier Manager Name Role Phone DearCampbell DO Primary [...] on file Legal Sex Male 5:24 AM LANDMEN Gender Identity Not on file Sexual Orientation Not on file documented as of this encounter Plan of Treatment Not on file documented as of this encounter Visit Diagnoses Diagnosis Other convulsions- Primary documented in this encounter Care Teams Cashier Manager Relationship Specialty Start Date End Date DearCampbell DO [address] [place] [address] PCP - General Family Practice 07/09/22 documented as of this encounter
--- OUTSIDE RECORDS SUMMARY | 2025-05-25 21:13 | XMS_ITS | Encounter Summary ---
Author Organization [facility] Address 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
--- OUTSIDE RECORDS SUMMARY | 2025-05-25 21:13 | XMS_ITS | Encounter Summary ---
Author Organization [facility] Address 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
--- OUTSIDE RECORDS SUMMARY | 2025-05-25 21:14 | XMS_ITS | Clinical Summary ---
Author Organization [facility] Address [facility] [place] [address] Care Team Providers Care Monitoring Manager Name Role Phone Sahara Lee MD Primary [...] hematuria 2023 DVT (deep venous thrombosis) ([facility]) 1 11/07/2022 Hypercoagulable state ([facility]) 09/06/2023 Osteoarthrosis 09/06/2023 Old myocardial infarction [...] thrombosis (DVT) of right tibial vein ([facility]) 04/17/2022 Overview (08/26/2024): Last Assessment & [...] without long-term current use of insulin ([facility]) 04/17/2022 Diabetic polyneuropathy asso ciated with type 2 diabetes mellitus ([facility]) 04/17/2022 Former smoker 04/17/2022 Overview (08/26/2024): Last Assessment & Plan: Quit 38 years ago -Not candidate for lung cancer screening - is due for abdominal aortic aneurysm screening Gastroesophageal reflux disease without esophagi tis 04/17/2022 Overview (08/26/2024): Last Assessment & Plan: Chronic, stable - omeprazole 20mg Mixed hyperlipidemia 04/17/2022 Type 2 diabetes mellitus wit h hyperglycemia ([facility]) 04/17/2022 Overview (08/26/2024): Diagnosed around 2004. [...] on file Legal Sex Male 12:31 PM SITE LEAD Gender Identity Not on file Sexual Orientation Not on file Last Filed Vital Signs Vital Sign Reading Time Taken Comments Blood Pressure 135/82 08/26/2024 9:10 AM SITE LEAD Pulse 64 08/26/2024 8:45 AM SITE LEAD Temperature 36.3 C (97.4 F) 03/20/2024 8:24 AM CDT Respiratory Rate 16 08/26/2024 8:45 AM SITE LEAD Oxygen Saturation 97% 08/26/2024 8:45 AM SITE LEAD Inhaled Oxygen Concentration - - Weight 94.8 kg (209 lb) 08/26/2024 8:45 AM SITE LEAD Height 185.4 cm (6' 1) 08/26/2024 8:45 AM SITE LEAD Body Mass Index 27.57 08/26/2024 8:45 AM SITE LEAD Plan of Treatment Upcoming Encounters Date Type Department Care Team (Late st Contact Info) Description 06/15/2025 10:40 AM CDT Office Visit [facility] Multispecialty [facility] - [address] [place] [address] Amadeo Armstrong MD [address] [place] [address] Health Maintenance Due Date Last Done Comments [...] 0209/2022, 02/11/2022, Additional history exists PHQ-2 (Physician [place]) 09/23/2024 Pneumococcal Vaccine: 50+ Years Completed 10/17/2016, [...] age to complete this topic Insurance MED [facility] MEDICARE [employer] MEDICAID [employer]PT [place] [employer] [address] Care Teams Monitoring Manager Relationship Specialty Start Date End Date Sahara Lee MD [address] [address] PCP - General INTERNAL MEDICINE 03/20/24
--- OUTSIDE RECORDS SUMMARY | 2025-05-25 21:14 | XMS_ITS | Encounter Summary ---
Author Organization [facility] Health Address [address] [place] [address] Care Team Providers Care Archaeology Professor Name Role Phone Unknown, Provider Primary Care Provider Unavaila ble Reason for Visit * Reason Onset Date Comments Med Question 06/18/2024 Encounter Details Date Type Department Care Team (Late st Contact Info) Description 06/18/2024 Telephone [facility] - Centralized Scheduling [address] [place] [address] Thao Neri MD [address] [place] [address] Med Question Social History Tobacco Use Types Packs/Day Years Used Date Smoking Tobacco: Former Smokeless Tobacco: Never Alcohol Use Standard Drinks/Week Comments No 0 (1 standard drink = 0.6 oz pur e alcohol) Sex and Gender Information Value Date Recorded Sex Assigned at Not on file Legal Sex Male 5:27 AM NOTEREADER Gender Identity Not on file Sexual Orientation [...] on filedocumented in this encounter Care Teams Archaeology Professor Relationship Specialty Start Date End Date Unknown, Provider PCP - General 02/28/24 documented as of this encounter
[2025-05-25 21:32] LABS: Hematocrit 33.7 % (42.0-52.0); Hemoglobin 10.8 g/dL (14.0-18.0); Immature Granulocyte Percent A 0.4 % (0-0.5); Lymphocytes Absolute Auto 1.77 K/mm3 (0.9-3.2); Mean Corpuscular HGB Conc 32.0 g/dl (32-36); Mean Corpuscular Hemoglobin 29.3 pg (26-34); Mean Corpuscular Volume 91.6 fl (80-100); Nucleated Red Blood Cells Absolute Auto 0.000 K/mm3 (0.0-0.012); Nucleated Red Blood Cells Perc 0.0 % (0.0-0.2); Platelet Count Result 206 k/mm3 (150-375); Red Blood Count 3.68 M/mm3 (4.6-6.20); White Blood Count 7.3 K/mm3 (4.5-10.0)
[2025-05-25 21:45] LABS: Anion Gap 8 mmol/L (4-12); Blood Urea Nitrogen 33 mg/dL (9-20); Calcium 9.1 mg/dL (8.4-10.2); Carbon Dioxide 25 mmol/L (22-30); Chloride 101 mmol/L (98-107); Estimated CRCL calculation 63 ml/min; Estimated Glomerular Filt Rate 42; Glucose 159 mg/dL (65-110); Potassium 4.5 mmol/L (3.4-5.0); Sodium 134 mmol/L (137-145)
[2025-05-25 22:58] LABS: Add Urine Microscopic? YES; Appearance Urine Turbid (Clear); Glucose Urine UA Negative (Negative); Leukocyte Esterase Ur 3+ LEU/UL (Negative); Nitrate Urine Negative (Negative); Specific Grav Ur 1.013 (1.001-1.035)
[2025-05-25] MEDS: SULFAMETHOXAZOLE/TRIMETHOPRIM 800/160 MG DS TABLET 1 TAB PO (23:18)
[2025-05-25 23:35] VITALS: BP 145/79; PULSE 87; RESP 18; TEMP 36.6; O2SAT 97
--- NOTE | 2025-06-22 11:15 | PC.NURSE ---
LATE ENTRY This note is being entered to document information to the patient's record. The following information was omitted on [05/25/25], by [Juliana Sanchez RN]. AFSANEH Babb, Insert/ Change indwelling catheter. Juliana TAYLOR removed existing catheter from home and replaced with a new catheter.
== END 2025-05-25 23:36 | disposition home or self-care (01) ==
PROVIDERS: Emergency Provider Student in an Organized Health Care Education/Training Program; PCP Internal Medicine
DX: N39.0 Urinary tract infection, site not specified (principal); I25.10 Atherosclerotic heart disease of native coronary artery without angina pectoris; I25.2 Old myocardial infarction; I10 Essential (primary) hypertension; I47.20 Ventricular tachycardia, unspecified; E78.5 Hyperlipidemia, unspecified; E11.40 Type 2 diabetes mellitus with diabetic neuropathy, unspecified; F10.21 Alcohol dependence, in remission; Z66 Do not resuscitate; Z96.0 Presence of urogenital implants; Z95.5 Presence of coronary angioplasty implant and graft; Z96.653 Presence of artificial knee joint, bilateral; Z86.718 Personal history of other venous thrombosis and embolism; Z87.442 Personal history of urinary calculi; Z87.891 Personal history of nicotine dependence; Z90.49 Acquired absence of other specified parts of digestive tract
CPT/HCPCS: 36415; 51702; 80048; 81001; 85025; 87077; 87086; 87186; 99283; A9270

== ENCOUNTER 2025-06-28 23:28 | Inpatient (IN) | payer MEDICARE, MEDICAID, OTHER, SELFPAY ==
--- OUTSIDE RECORDS SUMMARY | 2024-09-09 09:30 | XMS_ITS ---
Author Organization [facility] Office Address [address] [facility] [address] [facility] [address] [place] [address] Care Team Providers Care Side Stitching Machine Operator Name Role Phone Alana Avilaerjit Unavailable [phone] Problems Problem Type SNOMED Code ICD Code Onset Dates Problem Status W/U Status Risk Notes Problem Chronic kidney disease stage 3 (disorder) (543759233) Stage 3 chronic kidney disease (N18.30) Active confirmed Problem Diabetic renal disease (245389075) Type 2 diabetes mellitus with diabetic chronic kidney disease (E11.22) Active confirmed Problem Essential hypertension (42213288) Essential hypertension (I10) Active confirmed Problem Hyperlipidemia (82957806) Hyperlipidemia, unspecified (E78.5) Active confirmed Encounters Encounter Location Date Provider Diagnosis [facility] [address] [facility] [address] [place] [address] 09/09/2024 Melvin Avila Stage 3 chronic kidn [...] Treatment No Information Progress Notes * JUDIMARY GRACE XIONGDOB: [birth year] (79 yo M)Acc No.[id number]:09/09/2024 Progress Notes Patient: MARY GRACE SINGH Provider: Belkys GARCIA MD, F.A.C.P, F.A.S.N. :1945 A ge:79 Y S ex:Male Date:09/09/2024 Address:[address] [place] [address] Subjective: * Chief Complaints: * * Medical History: Objective: * Vitals: Assessment: * Assessment: 1. S tage 3 chronic kidney disease - N18.30 (Primary) 2 . T ype 2 diabetes mellitus with diabetic chronic kidney disease - E11.22 3 . E ssential hypertension - I10 4 . H yperlipidemia, unspecified - E78.5 Plan: * Treatment: * Billing Information: * Visit Code: 96680 Office Visit, New Pt., Level 5. * Procedure Codes: * Electronic signature of Ora Avila MD on 06/29/2025 at 02:43 AM CDT Sign off status: Pending * Provider: Belkys GARCIA MD, F.A.C.P, F.A.S.N. Date: 11/10/2023 Generated for Printing/Faxing/eTransmitting on: 02:43 AM CDT
--- OUTSIDE RECORDS SUMMARY | 2025-06-24 06:20 | XMS_ITS | Continuity of Care Document ---
Author Organization [facility] Address [address] [place] [address] Phone Care Team Providers Care Registered Dental Assistant Rda Name Role Phone Marlen MAZARIEGOS, Braxton Unavailable Unavailabl e Allergies, Adverse Reactions, Alerts Substance Reaction Status Criticality amitriptyline Active No Information PENICILLIN Active No Information morphine Active No Information Medications Medication Instructions Dosage Effective Dates (start - stop) Status Comments AMIODARONE HCL 200 MG TABLET TAKE 1 TABLET BY MOUTH TWICE A DAY - Active levofloxacin 750 mg tablet take 1 tablet by oral route every day 750 MG - Active Eliquis 5 mg tablet take 1 tablet by oral route 2 times every day 1 tablet - Active tramadol 50 mg tablet take 1 tablet by oral route every 6 hours as needed 50 MG - Active Percocet 5 mg-325 mg tablet take 1 tablet by oral route every 8 hours as needed as needed for Pain 1 tablet - Active AMIODARONE HCL 200 MG TABLET TAKE 1 TABLET BY MOUTH TWICE A DAY - No Longer Active Procedures Procedure Date ICD DEVICE PROGR EVAL, DUAL ICM DEVICE EVAL POSTOP FOLLOW-UP VISIT ICM DEVICE INTERROGAT REMOTE ICD DEVICE INTERROGAT REMOTE PM/ICD REMOTE TECH SERV POSTOP FOLLOW-UP VISIT POSTOP FOLLOW-UP VISIT POSTOP FOLLOW-UP VISIT ICD DEVICE PROGR EVAL, DUAL ICM DEVICE EVAL Complex e/m visit add on OFFICE/OUTPATIENT VISIT, EST ELECTROCARDIOGRAM, COMPLETE Complex e/m visit add on OFFICE/OUTPATIENT VISIT, EST ELECTROCARDIOGRAM, COMPLETE ELTRD/INSERT PACE-DEFIB REMOVAL OF PACEMAKER SYSTEM ELECTROPHYSIOLOGY EVALUATION ICM DEVICE INTERROGAT REMOTE Advance Directives Directive Yes / No Effective Date File Name No Information Encounters Encounter Description Practice Location Reason(s) For Visit Diagnoses Date Provider Providers Copied on Encounter [facility], [address] [place] [address], [id number] , tel: [phone] [facility] [place] No Information 5 Kalvaitis Saulius. [facility] [place], [place], [id number], . tel:[phone] [facility], [address] [place] [address], [id number] , tel: [phone] [facility] Information 5 Kalvaitis Saulius. [facility] [place], [id number], . tel:[phone] [facility], [address] [place] [address], [id number] , tel: [phone] [facility] [place] Bradycardia, unspecified 5 Kalvaitis Saulius. [facility] [place], [place], [id number], . tel:[phone] Referring Provider: Jessy Clement, [facility] [address] , [place], [address] . tel:[phone] [facility], [address] [place] [address], [id number] , tel: [phone] [facility] [place] follow up (chief complaint) DM type IIHx of DVTHTNMISyncopeVen tricular tachycardiaPresenc e of automatic (implantable) cardiac defibrillator 5 Kalvaitis Saulius. [address], [place], [place], [id number], . tel:[phone] [facility], [address] [place] [address], [id number] , tel: [phone] [facility] [place] Bradycardia, unspecified 5 Bismark Jiménez. [address], [place], [place], [id number], [place]. tel:[phone] Referring Provider: Jessy Clement, [address], [place], [address] . tel: [phone] sulting Provider: Jessy Clement, [address], [place], [address] . tel:[phone] [facility], [address] [place] [address], [id number] , tel: [phone] [facility] [place] Bradycardia, unspecified 5 Bismark Jiménez. [facility], [place], [place], [id number], . tel:[phone] Referring Provider: Jessy Clement, [address], [place], [address] . tel:[phone] sulting Provider: Jessy Clement, [address], [place], [address] . tel:[phone] [facility], [address] [place] [address], [id number] , tel: [phone] [facility] [place] wound check (chief complaint) No Information 5 Kalvaitis Saulius. [address], [place], [place], [id number], . tel:[phone] Referring Provider: Jessy Clement, [address] [place], [address] . tel:[phone] [facility], [address] [place] [address], [id number] , tel: [phone] [facility] No Information 5 Bismark Jiménez. [address] [place], [place] [address], [place], [id number], . tel:[phone] Referring Provider: Jessy Clement, [address] [place], [place] [address], [address] . tel:[phone] [facility], [address] [place] [address], [id number] , tel: [phone] [facility] Follow Up of wound check (chief complaint) Ventricular tachycardia, unspecifiedBradyca rdia, unspecifiedEncount er for screening for cardiovascular disorders 5 Kalvaitis Saulius. [address] [place], [place] [address], [id number], . tel:[phone] Referring Provider: Jessy Clement, [address] [place], [place] [address], [address] . tel:[phone] [facility], [address] [place] [address], [id number] , tel: [phone] [facility] Ventricular tachycardia, unspecified 5 Kalvaitis Saulius. [address] [place], [place] [address], [place], [id number], . tel:[phone] Referring Provider: Jessy Clement, [facility] [place], [address] . tel:[phone] OFFICE/OUTPA TIENT VISIT, EST [facility], [address] [place] [address], [id number] , tel: [phone] [facility] [place] Follow Up of Cardiology exam (chief complaint) Ventricular tachycardia, unspecifiedBradyca rdia, unspecifiedEncount er for screening for cardiovascular disorders 5 Saheta Sanjaya. [address], [place], [place], [id number], [place]. tel:[phone] Referring Provider: Jessy Clement, [address], [place], [address] . tel:[phone] OFFICE/OUTPA TIENT VISIT, EST [facility], [address] [place] [address], [id number] , tel: [phone] [facility] Follow Up of Cardiology exam (chief complaint) Bradycardia, unspecifiedVentric ular tachycardia, unspecifiedEncount er for screening for cardiovascular disorders 5 Saheta Sanjaya. [address], [place], [place], [id number], [place]. tel:[phone] Referring Provider: Sahara guzman, [address] [facility] [address], [place], [address]. tel:[phone] [facility], [address] [place] [address], [id number] , [place] tel: [phone] [facility] No Information 5 Kaljoannaitis Saonelus. [address], [place], [place], [id number], [place]. tel:[phone] Referring Provider: Jessy Clement, [address], [place], [address] . tel:[phone] [facility], [address] [place] [address], [id number] , tel: [phone] [facility] Religion No Information 5 Saheta Sanjaya. [address], [place], [place], [id number], [place]. tel:[phone] [facility], [address] [place] [address], [id number] , tel: [phone] [facility] Bradycardia, unspecified 5 Saheta Sanjaya. [address], [place], [place], [id number], . tel:[phone] Referring Provider: Jessy Clement, [address], [place], [address] . tel:[phone] sulting Provider: Jessy Clement, [address], [place], [address] . tel:[phone] Family History Family Member Type Diagnosis Age At Onset No Information Payers Payer name Insurance type Covered libertarian ID Nelly diez(s) AARP MEDICARE ADVANTAGE [id number] [facility] [id number] Social History Type Description Quantity Date Captured Comments Sex Male Smoking Status No Information Chief Complaint And Reason For Visit No Information Reason For Referral Reason For Referral No Information Plan Of Treatment Date Type Action Status Appointment [facility] BOOKED Appointment [facility] BOOKED Appointment [facility] BOOKED History Of Present Illness Encounter Date Complaint History Of Prese nt Illness follow up wound check Follow Up of wound check Follow Up of Cardiology exam Follow Up of Cardiology exam Functional Status Date Functional Assessmen t No Information Instructions Date Instruction Additional Infor mation No Information Assessments Type Assessment Date No Information Patient Care Teams Name Effective Dates (start - stop) Status Members No Information
--- NOTE | ~2025-06-28 | XR_ITS ---
EXAMINATION: XR chest 1V portable 06/29/2025 10:16 INDICATION: Rule out pneumonia TECHNIQUE:A single portable AP upright frontal image of the chest was obtained COMPARISON: 04/03/2025 FINDINGS: Cardiomediastinal silhouette is moderately enlarged. Left-sided generator with leads. No pneumothorax. Possible small pleural effusion. Moderate-sized patchy consolidations in the right mid and lower lung. Nasogastric tube courses below the diaphragm, its tip is not visualized. Right hilar region is prominent. IMPRESSION: 1: Moderate-sized patchy consolidations in the right mid and lower lung. Differential includes focal pneumonia, however, an underlying mass is possible given the configuration of the consolidations. A chest CT with contrast is recommended. Recommend follow-up to resolution. 2. Right hilar region is prominent. Differential includes overlapping vasculature, adenopathy or mass. A chest CT with contrast is recommended. 3. Possible small right-sided pleural effusion. Reviewed, dictated and finalized at location Q. IMPRESSION: 1: Moderate-sized patchy consolidations in the right mid and lower lung. Diffe rential includes focal pneumonia, however, an underlying mass is possible given the configuration of the consolidations. A chest CT with contrast is recommend ed. Recommend follow-up to resolution. 2. Right hilar region is prominent. Differential includes overlapping vasculatu re, adenopathy or mass. A chest CT with contrast is recommended. 3. Possible small right-sided pleural effusion.
--- NOTE | ~2025-06-28 | NM_ITS ---
EXAM: NM gastric emptying study DATE: 06/30/2025 15:23 INDICATION: Possible gastroparesis TECHNIQUE: A gastric emptying study was performed using the methodology of Audrey JOSUE, et al. J Nucl Med 2007; 48:568-572. The patient was given a meal consisting of 2 scrambled eggs labeled with 1.029 mCi Tc-99m sulfur colloid, 2 slices of toast, two packages of jam, and approximately 120 mL of water. Simultaneous anterior and posterior 1-min images of the abdomen were obtained with the patient supine at multiple time points over a total period of 4 hours. The geometric mean of anterior and posterior views was determined, and the percentage retention was calculated for each time point. COMPARISON: None. FINDINGS: Gastric retention of the radiotracer-labeled meal was 34%, 4%, and 2% at the 1- hour, 2-hour, and 4-hour time points, respectively. With this technique, apparent rapid gastric emptying is suggested by <30% gastric retention at 1 hour. Delayed gastric emptying is defined by gastric retention of >90% at 1 hour, >60% retention at 2 hours, or >10% retention at 4 hours. IMPRESSION: 1. Normal gastric emptying. Reviewed, dictated and finalized at location A. IMPRESSION: 1. Normal gastric emptying.
--- NOTE | ~2025-06-28 | CT_ITS ---
EXAMINATION: CT abdomen pelvis wo con, 06/29/2025 3:00 CDT HISTORY: abdominal pain COMPARISON: No comparisons available. TECHNIQUE: CT scan of the abdomen and pelvis was performed without IV contrast. One or more of the following dose reduction techniques were used: automated exposure control, adjustment of the mA and/or kV according to patient size, use of iterative reconstruction technique. Unless otherwise stated, incidental findings do not require dedicated follow up imaging FINDINGS: CT abdomen: LUNG BASES: Within the right lower lobe there are areas of abnormal density which in part may reflect atelectasis, there is an infiltrate in the right lower lobe and the right middle lobe, correlate for underlying bronchopneumonia, CT chest is suggested. LIVER: Unremarkable, liver contours intact, no lesions. SPLEEN: Unremarkable, no splenomegaly. KIDNEYS: Right Kidney: Unremarkable. No calculi. No hydronephrosis. Left Kidney: Left kidney there are renal calculi noted the largest mid pole 3 mm with mild hydronephrosis but no hydroureter. ADRENAL GLANDS: Unremarkable. PANCREAS: Mild pancreatic atrophy. GALLBLADDER/BILIARY: Post cholecystectomy. STOMACH AND ESOPHAGUS: Small hiatal hernia. The stomach appears distended. BOWEL/MESENTERY: Moderate diverticulosis, no colitis or diverticulitis. Appendix not clearly identified. No stranding within the mesentery. No thickened or dilated loops of small bowel. ADENOPATHY/RETROPERITONEUM: No lymphadenopathy. AORTA/VASCULATURE: Normal caliber aorta. FREE FLUID OR FREE AIR: Trace free fluid. No free air.. CT pelvis: SOLID ORGANS/REPRODUCTIVE: Unremarkable. BLADDER: There is thickening of the bladder wall with perivesicular stranding. OSSEOUS STRUCTURES: Ill-defined sclerosis noted of the right iliac bone probably related to sequelae of hepatic disease in the absence of prior neoplasm. Scattered sclerotic probable bone islands are noted. OVERLYING SOFT TISSUES: Small fat-containing left inguinal hernia. Small to moderate fat-containing right inguinal hernia. Omer catheter in the bladder. IMPRESSION: 1. Cystitis. 2. Incidental findings above. Reviewed, dictated and finalized at location P.
--- NOTE | ~2025-06-28 | CT_ITS ---
EXAMINATION: CT diagnostic chest wo con DATE: 06/30/2025 13:17 INDICATION: Prominent right hilar region TECHNIQUE: Computed tomography (CT) of the chest was performed without intravenous contrast. Additional 3D reconstructions utilizing coronal maximum intensity projection (MIP) were performed. Automated exposure control and iterative reconstruction technique were employed. The dose-length product was 49 1.27 mGy-cm. COMPARISON: CT abdomen and pelvis dated 06/29/2025 and 08/25/2024 FINDINGS: There is pleural thickening at the right lower lung with stable appearance of a region of chronic round atelectasis at the posterior medial right lower lobe. There is an additional region of round atelectasis at the anterolateral right middle lobe which abuts new patchy consolidation in the anterior right middle lobe with additional patchy consolidation at the posterior and perihilar region of the right middle lobe which. These are located sites of prior groundglass opacities on CT from one day prior consistent with progression of pneumonia. Additional mild pleural parenchymal scarring along the anterior right upper lobe. There are small calcified nodules in the region of round atelectasis in the right lower lobe consistent with old granulomatous disease. Unchanged trace right pleural effusion loculated along the region of round atelectasis in the right lower lobe. Left lung is clear. No pulmonary edema or left-sided pleural effusion. Heart size is normal. Small amount of atherosclerotic coronary artery calcification. Cardiac pacemaker with one lead tip terminating at the right atrial appendage, one lead with defibrillator terminating near the apex of the right ventricle and the second ventricular lead terminating near the right sharla tricular outflow tract. No pericardial effusion. 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 Nasogastric tube with tip terminating in the body the stomach. Cholecystectomy clips at the gallbladder fossa. Mildly enlarged in likely reactive right paratracheal lymph node which measures up to 1.1 cm maximal short axis diameter. No other pathologically enlarged thoracic lymphadenopathy. Chronic mild anterior wedging at T7 and T8. Moderate to severe thoracic spondylosis with bridging osteophytes at multiple levels consistent with diffuse idiopathic skeletal hyperostosis (DISH). IMPRESSION: 1. New patchy consolidation at the sites of prior ground glass opacities in the right middle lobe consistent with progression of pneumonia. 2. Chronic mild pleural thickening the right lower lung with regions of pleural- parenchymal scarring and chronic round atelectasis in the right middle and lower lobes. 3. Mildly enlarged, likely reactive right paratracheal lymph node. Reviewed, dictated and finalized at location A. IMPRESSION: 1. New patchy consolidation at the sites of prior ground glass opacities in the right middle lobe consistent with progression of pneumonia. 2. Chronic mild pleural thickening the right lower lung with regions of pleural -parenchymal scarring and chronic round atelectasis in the right middle and low er lobes. 3. Mildly enlarged, likely reactive right paratracheal lymph node.
--- NOTE | ~2025-06-28 | XR_ITS ---
Abdominal radiograph(s) INDICATION: NG tube COMPARISON: CT abdomen and pelvis earlier same day TECHNIQUE: Portable supine AP abdomen FINDINGS: Film includes lower chest and upper abdomen. Right basilar atelectasis and/or airspace disease. Scattered colonic gas and stool. Mild scattered small bowel gas. NG tube within gastric body. IMPRESSION: 1. NG tube within gastric body. Reviewed, dictated and finalized at location R.
[2025-06-28 23:29] VITALS: BP 137/76; PULSE 86; RESP 18; TEMP 37.1; O2SAT 96
[2025-06-28 23:50] LABS: Hematocrit 42.6 % (42.0-52.0); Hemoglobin 13.7 g/dL (14.0-18.0); Immature Granulocyte Percent A 0.5 % (0-0.5); Lymphocytes Absolute Auto 1.80 K/mm3 (0.9-3.2); Mean Corpuscular HGB Conc 32.2 g/dl (32-36); Mean Corpuscular Hemoglobin 29.5 pg (26-34); Mean Corpuscular Volume 91.8 fl (80-100); Nucleated Red Blood Cells Absolute Auto 0.000 K/mm3 (0.0-0.012); Nucleated Red Blood Cells Perc 0.0 % (0.0-0.2); Platelet Count Result 215 k/mm3 (150-375); Red Blood Count 4.64 M/mm3 (4.6-6.20); White Blood Count 8.3 K/mm3 (4.5-10.0)
[2025-06-29] VITALS (25 sets, daily range): BP systolic 115–176; BP diastolic 55–90; PULSE 70–97; RESP 15–20; TEMP 36.9–37.1; O2SAT 93–99; BMI 28.3
[2025-06-29 00:12] LABS: Alanine Aminotransferase 30 U/L (6-50); Albumin Level 4.8 g/dL (3.5-5.1); Alkaline Phosphatase 162 U/L (38-126); Anion Gap 11 mmol/L (4-12); Aspartate Amino Transferase 35 U/L (17-59); Bilirubin,Total 0.9 mg/dL (0.2-1.3); Blood Urea Nitrogen 23 mg/dL (9-20); Calcium 9.8 mg/dL (8.4-10.2); Carbon Dioxide 27 mmol/L (22-30); Chloride 102 mmol/L (98-107); Estimated CRCL calculation 57 ml/min; Estimated Glomerular Filt Rate > 60; Glucose 182 mg/dL (65-110); Lipase 90 U/L (23-300); Potassium 4.5 mmol/L (3.4-5.0); Sodium 140 mmol/L (137-145); Total Protein 8.8 g/dL (6.3-8.2)
--- OUTSIDE RECORDS SUMMARY | 2025-06-29 02:42 | XMS_ITS | Patient Health Record ---
Author Organization [facility] Address [address] [facility] [address] [facility] [address] [place] [address] Care Team Providers Care Drop Board Worker Name Role Phone Alana Avilaerjit Unavailable [phone] Reason For Referral No Information Problems Problem Type SNOMED Code ICD Code Onset Dates Problem Status W/U Status Risk Notes Problem Diabetic renal disease (116579641) Type 2 diabetes mellitus with diabetic chronic kidney disease (E11.22) Active confirmed Problem Hyperlipidemia (92252424) Hyperlipidemia, unspecified (E78.5) Active confirmed Problem Essential hypertension (31820315) Essential hypertension (I10) Active confirmed Problem Chronic kidney disease stage 3 (disorder) (195167065) Stage 3 chronic kidney disease (N18.30) Active confirmed Encounters Encounter Location Date Provider Diagnosis [facility] [address] [facility] [address] [place] [address] 09/09/2024 Melvin Avila Stage 3 chronic kidn [...]
--- OUTSIDE RECORDS SUMMARY | 2025-06-29 02:42 | XMS_ITS | Continuity of Care Document ---
Author Organization [facility] Address [address] [place] [address] Insurance Providers Payer Plan Claims Address Claims Phone Policy Number Group Number Relation Employer Guarantor Name Guarantor Guarantor Address Guarantor Phone ANALIA Ha [employer] [address] [address], [place] [address] tel:[phone] Self Cosme Parsons 1945 [address] [place] [address] [employer] [place] tel:[phone] Self Cosme Parsons 1945 [address] [place] [address] [facility] [employer] [address] [address], [place] [address] tel:[phone] Self Cosme Parsons 1945 [address] [place] [address] Problems Unknown Problems Results No Results Allergies, adverse reactions, alerts No known allergies and adverse reactions Medications No administered medications reported Vital Signs Date Vital Result Comment 09/10/2024 Inhaled Oxygen Concentration (3150-0) 21. 0 % N Faces Pain Scale (09350-5) 0.0 N Temperature (8310-5) 98 [degF] N Oxygen Saturation (48020-5) 97 % N Respiratory Rate (9279-1) 16 /min N Heart Rate (8867-4) 64 /min N Blood Pressure Systolic (8480-6) 130 mm[Hg] N Blood Pressure Diastolic (8462-4) 60 mm[Hg] N Body Height (8302-2) 73 [in_i] N Body Weight (86777-3) 221 [lb_av] N Body Mass Index (71260-8) 29.2 kg/m2 N Social History No smoking Hx information available
--- OUTSIDE RECORDS SUMMARY | 2025-06-29 02:42 | XMS_ITS | Clinical Summary ---
Author Organization [facility] Address [address] [place] [address] Care Team Providers Care Awning Spreader Name Role Phone Unknown, Provider Primary Care Provider Unavaila ble Source Comments [facility],non-owned Affiliates and Associated Physician Practices is amultiple site organization consisting of ambulatory clinics and hospital sitesin [place], [place], [place] and [place]. This disclosure is being madepursuant to the Care Everywhere program and may not contain all information available regarding this patient. 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 Gender Identity Not on file Sexual Orientation [...] this topic Medical Devices Explanted Type Area Optical Goods Drilling Machine Operator Device Identifier Shelf Expiration Date Model / Serial / Lot Stent Tria Sft 6x30 Implanted:Qty: 1 on 03/13/2022 by Chace Dale MD at [facility] Explanted:Qty: 1 on 04/03/2022 by Chace Dale MD at [facility] Left: [employer] 12/06/2024 [id number] / / [id number] Insurance MANAGED MEDICARE [facility] [place]ICAID [place] [facility] MANAGED MEDICARE ADV [place]ID [place] [facility] MANAGED MEDICARE ADV Member Subscriber Plan / Payer (Ef fective 2024-Present) Name:Mary Grace Lau Relation to Subscriber:Self Name:Yaya Mary Grace Payer ID:[id number] (NAIC) Type:Medicare-Managed Care Address: [place] [id number] [place] Member Subscriber Plan / Payer (Ef fective for All Dates) Name:Mary Grace Lau Member ID:Not on file Relation to Subscriber:Self Name:YayaMary Grace Payer ID:Not on file Group ID:Not on file Type:Medicaid [place] Address: [place] [id number] [facility] MANAGED MEDICARE ADV Member Subscriber Plan / Payer (Ef fective 2024-Present) Name:Mary Grace Lau Relation to Subscriber:Self Name:Mary Grace Lau Payer ID:[id number] ([facility]) Type:Medicare-Managed Care Address: [address] MEDICAID [place] [facility] MANAGED MEDICARE ADV Member Subscriber Plan / Payer (Ef fective 2024-Present) Name:Mary Grace Lau Relation to Subscriber:Self Name:Mary Grace Lau Payer ID:[id number] (NAIC) Type:Medicare-Managed Care Address: [address] * Guarantor: MARY GRACE LAU Account [...] Group ID:Not on file Type:Medicaid [place] Address: [address] MANAGED MEDICARE ADV Member Subscriber Plan / Payer (Ef fective 2024-) Name:Mary Grace Lau Relation to Subscriber:Self Name:Mary Grace Lau Payer ID:[id number] (NAIC) Type:Medicare-Managed Care Address: [place] [id number] * Guarantor: MARY GRACE LAU Account Type [...] Group ID:Not on file Type:Medicaid [place] Address: [address] MANAGED MEDICARE ADV * Guarantor: MARY GRACE LAU Account Type Relation to Patient Date of Phone Billing Address Personal/Family [address] [place] [address] MEDICA[place] [employer] MANAGED MEDICARE ADV [...] 7:21 PM 12/01/2019 1:11 AM Care Teams Awning Spreader Relationship Specialty Start Date End Date Unknown, Provider PCP - General 02/28/24
--- OUTSIDE RECORDS SUMMARY | 2025-06-29 02:42 | XMS_ITS | Clinical Summary ---
Author Organization [facility] er Address [address] [place] [address] Care Team Providers Care Production Officer Name Role Phone No, Physician Unavailable Dear, [...] 08/06/2022 Assessment & Plan (08/06/2022 12:13 PM OVERHEAD CRANE INSPECTOR): Chronic, worsening - Refer to vascular surgery [...] 04/17/2022 Assessment & Plan (11/13/2022 2:04 PM OVERHEAD CRANE INSPECTOR): Chronic, R anterior tibial (12/12); unprovoked per [...] surgery Assessment & Plan (08/06/2022 12:10 PM OVERHEAD CRANE INSPECTOR): Chronic, R anterior tibial (12/12); unprovoked per [...] 04/17/2022 Assessment & Plan (08/06/2022 12:14 PM OVERHEAD CRANE INSPECTOR): Chronic Complications: CAD, HTN, Neuropathy A1c: 8.0 [...] 04/17/2022 Assessment & Plan (08/06/2022 12:20 PM OVERHEAD CRANE INSPECTOR): Chronic, controlled - lisinopril 2.5mg Assessment & [...] omeprazole 20mg Coronary artery disease invo lving [place] coronary artery of [place] tribe heart without angina pectoris 04/17/2022 [...] Medical History Date Comments Hypertension Diabetes mellitus Bipolar 1 disorder (HCC) Coronary artery disease [...] Comments Blood Pressure 137/63 11/20/2022 4:30 PM OVERHEAD CRANE INSPECTOR Pulse 65 11/20/2022 4:55 PM OVERHEAD CRANE INSPECTOR Temperature 36 C (96.8 F) 11/20/2022 10:41 AM OVERHEAD CRANE INSPECTOR Respiratory Rate 18 11/20/2022 10:41 AM OVERHEAD CRANE INSPECTOR Oxygen Saturation 100% 11/20/2022 4:55 PM OVERHEAD CRANE INSPECTOR Inhaled Oxygen Concentration - - Weight 104.8 kg (231 lb) 11/20/2022 10:41 AM OVERHEAD CRANE INSPECTOR Height 177.8 cm (5' 10) 11/13/2022 1:42 PM OVERHEAD CRANE INSPECTOR Body Mass Index 33.15 11/13/2022 1:42 PM OVERHEAD CRANE INSPECTOR Plan of Treatment Health Maintenance Due Date [...] Additional history exists Influenza Vaccine (#1) 2025 , 06/23/2021, 06/23/2020, Additional history exists Pneumococcal vaccine [...] Diagnosis Comments EGFR STAT 11/20/2022 3:11 PM OVERHEAD CRANE INSPECTOR HEMOGLOBIN A1C Routine 11/13/2022 2:20 PM OVERHEAD CRANE INSPECTOR 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, without long-term current use of insulin (HCC) HEPATITIS C RNA, QUANTITATIVE, PCR Routine 05/08/2022 10:08 AM CDT Need for hepatitis C screening test LIPID PANEL Routine 04/17/2022 9:43 AM CDT Coronary artery disease involving [place] tribe coronary artery of [place] tribe heart without angina pectoris ALBUMIN CREATININE RATIO, URINE Routine 04/17/2022 9:43 AM CDT 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, without long-term current use of insulin (HCC) OCCULT BLOOD, FECAL (FIT) Routine 11/22/2017 11:15 AM OVERHEAD CRANE INSPECTOR from Last 3 Months or Most Recently Relevant to Health Maintenance Results * eGFR (11/20/2022 3:11 PM OVERHEAD CRANE INSPECTOR) eGFR 95 mL/min/1. 73 m2 [facility] Comment: Interpretive Data Reference [...] last reviewed 2021. Blood 11/20/2022 3:11 PM OVERHEAD CRANE INSPECTOR 11/20/2022 3:16 PM OVERHEAD CRANE INSPECTOR us Abraham Coello MD LAB BLOOD ORDERABLES Fi nal Result [facility] [address] [facility] Department [place] [address] * (ABNORMAL) Hemoglobin A1c (11/13/2022 2:20 PM OVERHEAD CRANE INSPECTOR) Hgb A1C 8.6(H) 4.0 - 5.6 % [facility] Estimated Average Glucose 200 mg/dL [facility] Comment: The ADA recommends reporting an estimated Average Glucose (eAG) with all Hemoglobin A1c results using the equation derived from a study of 507 normal and diabetic adults. Minority populations were underrepresented and children were not included. (Diabetes Care 31:7831-0667, 2008). The eAG is not equivalent to a fasting glucose. Blood 11/13/2022 2:20 PM OVERHEAD CRANE INSPECTOR 11/13/2022 2:41 PM OVERHEAD CRANE INSPECTOR Campbell Bullard Dear DO LAB BLOOD ORDERABLES Fin al Result Performing Organization Address City/[facility]/ZIP Co de Phone Number [facility] [address] [facility] [place] [address] * Hepatitis C (HCV) RNA PCR, quantitative (05/08/2022 10:08 AM CDT) [facility] HCV RNA IU/mL HCV Not Detected [...] 8:17 AM CDT Performed at: [address] [id number] Oil Pipe Inspector: Jamar Cooper MD, Phone: [phone] Campbell Bullard Dear DO LAB MICROBIOLOGY - GENER AL ORDERABLES Edited Result - [facility] - 01 * (ABNORMAL) Albumin Creatinine [...] - 04/18/2022 10:10 AM CDT Performed at: [address] [id number] Oil Pipe Inspector: Thad Peacock PhD, Phone: [phone] Campbell Bullard Dear DO LAB URINE ORDERABLES Fin al Result Performing Organization Address [facility] de Phone Number [facility] - 01 * Lipid panel (04/17/2022 [...] - 04/18/2022 7:10 AM CDT Performed at: [address] [place] [id number] Oil Pipe Inspector: Thad Peacock PhD, Phone: [phone] Campbell Bullard Dear DO LAB BLOOD ORDERABLES Fin al Result Performing Organization Address [facility] Co de Phone Number [facility] - 01 * Occult blood, fecal non neoplasm screening (11/22/2017 11:15 AM OVERHEAD CRANE INSPECTOR) Pathologist [facility] Collection date , [id number] [facility] Collection time 1, feces 1,115 [facility] Occult blood, fecal Negative Negative [facility] Stool 11/22/2017 11:1 5 AM OVERHEAD CRANE INSPECTOR 11/22/2017 1:19 PM OVERHEAD CRANE INSPECTOR Narrative [facility] - 11/22/2017 2:38 PM OVERHEAD CRANE INSPECTOR Hakeem Muro DO LAB BODY FLUIDS AND STOOLS ORDERABLES Final Result [facility] [address] [facility] Department [place] [address] from Last 3 Months or Most Recently Relevant to Health Maintenance Insurance MEDICARE [facility] Address: [address] [address] [place] [address] IDPA Care Teams Production Officer Relationship Specialty Start Date End Date Dear, Campbell Bullard DO PCP - General Family Medicine 04/13/22 No, Physician 12/21/16
--- OUTSIDE RECORDS SUMMARY | 2025-06-29 02:42 | XMS_ITS | Encounter Summary ---
Author Organization [facility] Address [address] [place] [address] Care Team Providers Care Civil Manager Name Role Phone DearCampbell DO Primary Care Provider + Encounter Details Date Type Department Care Team (Late st Contact Info) Description 12/04/1999 Outpatient Historical [facility] Internal Medicine [id number] [place] [address] Reg Katz MD Social History Tobacco Use Types Packs/Day Years Used Date Smoking Tobacco: Never Assessed Sex and Gender Information Value Date Recorded Sex Assigned at Not on file Legal Sex Male 5:24 AM COMMISSIONED POLICE OFFICER Gender Identity Not on file Sexual Orientation Not on file documented as of this encounter Plan of Treatment Not on file documented as of this encounter Visit Diagnoses Not on filedocumented in this encounter Care Teams Civil Manager Relationship Specialty Start Date End Date DearCampbell DO [address] [place] [phone] PCP - General Family Practice 07/09/22 documented as of this encounter
--- OUTSIDE RECORDS SUMMARY | 2025-06-29 02:42 | XMS_ITS | Encounter Summary ---
Author Organization [facility] Address 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
--- OUTSIDE RECORDS SUMMARY | 2025-06-29 02:42 | XMS_ITS | Encounter Summary ---
Author Organization [facility] Address [address] [place] [address] Care Team Providers Care Ict Security Specialist Name Role Phone DearCampbell DO Primary Care Provider + Encounter Details Date Type Department Care Team (Late st Contact Info) Description 10/26/1999 Outpatient Historical [facility] Internal Medicine [address] [place] [address] Reg Katz MD Social History Tobacco Use Types Packs/Day Years Used Date Smoking Tobacco: Never Assessed Sex and Gender Information Value Date Recorded Sex Assigned at Not on file Legal Sex Male 5:24 AM STAVE MILL HAND Gender Identity Not on file Sexual Orientation Not on file documented as of this encounter Plan of Treatment Not on file documented as of this encounter Visit Diagnoses Not on filedocumented in this encounter Care Teams Ict Security Specialist Relationship Specialty Start Date End Date DearCampbell DO [address] [place] [phone] PCP - General Family Practice 07/09/22 documented as of this encounter
--- OUTSIDE RECORDS SUMMARY | 2025-06-29 02:43 | XMS_ITS | Encounter Summary ---
Author Organization [facility] Address 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
--- OUTSIDE RECORDS SUMMARY | 2025-06-29 02:43 | XMS_ITS | Encounter Summary ---
Author Organization [facility] Health Address [address] [facility] [place] [address] Care Team Providers Care Drying Machine Back Tender Name Role Phone Abraham Cohn DO Primary Care Provider + Unknown, Provider Primary Care Provider Unavaila ble Encounter Details Date Type Department Care Team (Late st Contact Info) Description 01/05/2021 [facility] Outpatient Visit [facility] Orthopedics - Radiology [address] [place] [address] [place] [address] Document, Scanned Social History Tobacco Use Types Packs/Day Years Used Date Smoking Tobacco: Former Smokeless Tobacco: Never Alcohol Use Standard Drinks/Week Comments No 0 (1 standard drink = 0.6 oz pur e alcohol) Sex and Gender Information Value Date Recorded Sex Assigned at Not on file Legal Sex Male 5:27 AM PROMOTIONS OFFICER Gender Identity Not on file Sexual [...] on filedocumented in this encounter Care Teams Drying Machine Back Tender Relationship Specialty Start Date End Date Abraham Cohn DO [address] [place] [id number] PCP - General Family Medicine 09/06/20 03/03/23 Unknown, Provider PCP - General 02/28/24 documented as of this encounter
--- OUTSIDE RECORDS SUMMARY | 2025-06-29 02:43 | XMS_ITS | Encounter Summary ---
Author Organization [facility] Address [address] [place] [address] Care Team Providers Care Spareribs Trimmer Name Role Phone DearCampbell DO Primary Care [...] on file Legal Sex Male 5:24 AM VP OUTCOMES Gender Identity Not on file Sexual Orientation Not on file documented as of this encounter Plan of Treatment Not on file documented as of this encounter Visit Diagnoses Diagnosis Other convulsions- Primary documented in this encounter Care Teams Spareribs Trimmer Relationship Specialty Start Date End Date DearCampbell DO [facility] [place] [phone] PCP - General Family Practice 07/09/22 documented as of this encounter
--- OUTSIDE RECORDS SUMMARY | 2025-06-29 02:43 | XMS_ITS | Clinical Summary ---
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 [...] vein thrombosis (DVT) of right tibial vein ([facility]) 04/17/2022 Overview (08/26/2024): Last Assessment & Plan: [...] disorder, without long-term current use of insulin ([facility]) 04/17/2022 Diabetic polyneuropathy asso ciated with type 2 diabetes mellitus ([facility]) 04/17/2022 Former smoker 04/17/2022 Overview (08/26/2024): Last Assessment & Plan: Quit 38 years ago -Not candidate for lung cancer screening - is due for abdominal aortic aneurysm screening Gastroesophageal reflux disease without esophagi tis 04/17/2022 Overview (08/26/2024): Last Assessment & Plan: Chronic, stable - omeprazole 20mg Mixed hyperlipidemia 04/17/2022 Type 2 diabetes mellitus wit h hyperglycemia ([facility]) 04/17/2022 Overview (08/26/2024): Diagnosed around 2004. Complicated by peripheral neuropathy, CAD s/p stent placement, multiple TIAs. On Gabapentin 300mg bid for neuropathy. Abdominal pain, epigastric 11/30/2019 Cognitive impairment 10/07/2019 Neuropathy 10/07/2019 Encounters Date Type Department Care Team Description 06/15/2025 10:40 AM CDT Office Visit [facility] Multispecialty Care - [address], [address] [place] [address] Amadeo Armstrong MD Follow Up (Neuropathy) 06/15/2025 Travel from Last 3 Months Family History Medical [...] pur e alcohol) PHQ-2 Answer Date Recorded Patient Health Questionnaire-2 Score 0 06/15/2025 Sex and Gender Information Value Date Recorded Sex Assigned at Not on file Legal Sex Male 12:31 PM VP HR DIVERSITY Gender Identity Not on file Sexual Orientation Not on file Last Filed Vital Signs Vital Sign Reading Time Taken Comments Blood Pressure 130/64 06/15/2025 10:50 AM CDT Pulse 70 06/15/2025 10:50 AM CDT Temperature 36.7 C (98.1 F) 06/15/2025 10:50 AM CDT Respiratory Rate 16 08/26/2024 8:45 AM VP HR DIVERSITY Oxygen Saturation 97% 06/15/2025 10:50 AM CDT Inhaled Oxygen Concentration - - Weight 102.1 kg (225 lb) 06/15/2025 10:50 AM CDT Height 185.4 cm (6' 1) 06/15/2025 10:50 AM CDT Body Mass Index 29.69 06/15/2025 10:50 AM CDT Plan of Treatment Upcoming Encounters Date Type Department Care Team (Late st Contact Info) Description 07/02/2025 12:15 PM CDT [place]ointment [place] [address] Amadeo Armstrong MD [address] [place] [address] 09/08/2025 10:20 AM VP HR DIVERSITY Office Visit [facility] Multispecialty Care - [facility] [address] [facility], [address] [place] [address] Amadeo Armstrong MD [address] [place] [address] Health Maintenance Due Date Last Done Comments ASCVD LDL 1945 ASCVD Statin 1945 Kidney Health Evaluation 1945 Diabetes: Retinopathy Eye Exam 1963 Zoster Vaccines (1 of 2) 1995 Annual Medicare Wellness Visit 2010 RSV Immunization or 60+ Years (1 - 1-dose 75+ series) 2020 Lipid Panel 09/29/2021 09/29/2020 Hemoglobin A1C 06/08/2024 12/07/2023, 02/2 09/2022, 02/11/2022, Additional history exists COVID-19 Vaccine ( - season) 2025 Influenza Adult (#1) 2025 06/23/2022, 08/18/2021, 06/23/2021, Additional history exists DTaP, Tdap and Td Vaccines (3 - Td or Tdap) 04/03/2035 04/03/2025, 06/03/2012, 12/08/2000, Additional history exists Pneumococcal Vaccine: 50+ Years Completed 10/17/2016, 10/03/2016, 06/18/2015, Additional history exists Hepatitis C Completed 09/06/2020 PHQ-2 (Physician Crow) Completed 06/15/2025 Meningococcal B Vaccine Aged Out No l onger eligible based on patient's age to complete this topic Meningococcal Vaccine Aged Out No january elissa eligible based on patient's age to complete this topic RSV Immunizations Under 20 Months Aged Out No longer eligible based on patient's age to complete this topic Medical Devices Implanted Type Area Specialty Transformer Assembler Device Identifier Shelf Expiration Date Model / Serial / Lot Icd-04/05/2025 Implanted:Qty: 1 on 04/05/2025 ICD Chest [employer] [id number] RIVACOR 7 PETER / [id number] / Description:MR CONDITIONAL A T 1.5 T OR 3 T, MAX SPATIAL GRADIENT FIELD OF 3000 GAUSS/CM OR LESS, MAX SLEW RATE 200 T/M/S, MAX WHOLE BODY PAM OF 2 W/KG OR LESS, HEAD PAM 3.2 W/KG OR LESS Ra Lead Implant-2023 Implanted:Qty: 1 on 09/14/2024 Lead Implant Right: Atrium [employer] SOLIA S 53 [id number] / [id number] / Rv Lead Implant- 025 Implanted:Qty: 1 on 04/05/2025 Lead Implant Right: Ventricle [employer] PAMIRA S 60 [id number] / [id number] / Insurance MED [facility] MEDICARE SOLUTIONS Care Teams Dirt Supervisor Relationship Specialty Start Date End Date Sahara Lee MD [address] [address] PCP - General INTERNAL MEDICINE 03/20/24
--- OUTSIDE RECORDS SUMMARY | 2025-06-29 02:43 | XMS_ITS | Data Portability ---
Author Organization [place] [facility], Main Office Address [address] [place] [address] Care Team Providers Care Core Assembly Supervisor Name Role Phone SAHARA LEE Primary Care Provider [phone] SAHARA LEE Referring Provider LETA GUTIERRES Computing Consultant [phone] ANA ROSA ESTRADA Neurosurgeon FIDENCIO JOSÉ Records Management Director BETTE SOFIA Community Educator GABI ROBBINS Urologist Assessment Encounter Date Assessment [...] medications post their discharge from inpatient facility. [email or web address] Not available 03/10/2025 14:47:35 Plan of Treatment Reminders Order Date Submit Date Provider Last Modified By Organization Details Last Modified Time Details Appointments None recorded. Lab lipid panel, serum 2024 025 [facility], [address] [facility], [place], [address], 5 06:10:36 CBC w/ auto diff 2024 025 [facility], [address], [place], [address], 5 06:10:39 TSH, serum or plasma 2024 025 [facility], [address], [place], [address], 5 06:10:40 CMP, serum or plasma 2024 025 [facility], [address], [place], [address], 5 06:10:37 glycohemogl obin, total, blood 2024 025 [facility], [address], [place], [address], 5 14:59:02 microalbumi n, urine 2024 025 [facility], [address], [place], [address], 5 06:10:38 glycohemogl obin, total, blood 2024 025 [email or web address] [facility], [address], [place], [address], 5 15:15:10 microalbumi n, urine 2024 025 [email or web address] 6 [facility], [address], [place], [address], 5 15:15:10 lipid panel, serum 2024 025 [email or web address] 6 [facility], [address], [place], [address], 5 15:15:09 CBC w/ auto diff 2024 025 [email or web address] 6 [facility], [address], [place], [address], 5 15:15:10 TSH, serum or plasma 2024 025 [email or web address] 6 [facility], [address], [place], [address], 5 15:15:10 CMP, serum or plasma 2024 025 [email or web address] 6 [facility], [address], [place], [address], 5 15:15:10 glycohemogl obin, total, blood 2024 025 [email or web address] 6 [facility], [address], [place], [address], 5 09:43:44 microalbumi n, urine 2024 025 V[facility], [address], [place], [address], 5 08:03:52 lipid panel, serum 2024 025 [facility], [address], [place], [address], 5 08:03:50 CBC w/ auto diff 2024 025 [facility], [address], [place], [address], 5 08:03:54 TSH, serum or plasma 2024 025 [facility], [address], [place], [address], 5 08:03:55 CMP, serum or plasma 2024 025 [facility], [address], [place], [address], 08:03:51 Referral rheumatolog ist referral - Please call patient to schedule an appointment . Thank you. 2024 025 [email or web address] [facility] (Rheumatology ), [address], [place], [address], 09:08:54 urologist referral - Please call patient to schedule an appointment . Thank you. 2024 025 emani Freeman MD, [address] [facility] [address], [place], [address], 09:08:53 nephrologis t referral - Please call patient to schedule an appointment . Thank you. 2024 025 emani Avila MD (Nephrology, [address], [place], [address], 09:08:53 barrel tester and drainer referral - Please call patient to schedule an appointment . Thank you. 2024 025 emani José DPM, [address], [address], [place], [address], 09:58:18 cardiologis t referral - Pleas call patient to schedule an appointment . Thank you. 2024 025 emani Sofia MD, [address], [address], [place], [address], 5 09:07:10 rheumatolog ist referral - Please call patient to schedule an appointment . Thank you. 2024 025 [email or web address] 6 [facility] (Rheumatology ), [address] [facility] [address], [place], [address], 5 08:45:23 urologist referral - Please call patient to schedule an appointment . Thank you. 2024 025 [email or web address] 6 Hugo Freeman MD, [address] [facility] [address], [place], [address], 5 08:45:22 nephrologis t referral - Please call patient to schedule an appointment . Thank you. 2024 025 [email or web address] 6 Melvin Avila MD (Nephrology, [address], [address], [place], [address], 5 08:45:21 barrel tester and drainer referral - Please call patient to schedule an appointment . Thank you. 2024 025 [email or web address] 6 Fidencio José DPM, [address], [address], [place], [address], 5 09:12:58 nephrologis t referral - Please call patient to schedule. 2024 025 Melvin Avila MD (Nephrology, [address], [address], [place], [address], 17:38:21 barrel tester and drainer referral 2024 025 Fidencio José [facility]PG[facility], [address], [place], [address], 17:38:12 Procedures None recorded. Surgeries None recorded. Imaging US, liver - Please call patient to schedule. 2024 025 [email or web address] [facility], [address], [place], [address], 15:39:31 Medication Orders metoprolol tartrate 25 mg tablet 2024 025 [facility] #[id number], [address], [place], [address], 5 14:57:56 magnesium oxide 400 mg (241.3 mg magnesium) tablet 2024 025 [facility] #[id number], [address], [place], [address], 5 14:57:59 Patient TargetsNo targets recorded. Patient Instructions Encounter Date Encounter Id Patient Instructions Last Modified By Organization Details Last Modified Time 09/02/2024 [id number] 1. We changed hi s catheter today he will come back once a month for another catheter change Not available 09/02/2024 12:29:32 10/02/2024 [id number] continue with suprapubic tube change once a month Not available 10/02/2024 13:50:10 03/10/2025 [id number] Thank you for your visit to our [...] Medical Equipment needed: Billing Guidelines CPT code 33887- Transitional Care Management services with moderate medical decision complexity (qdzi-ad-niby visit within 14 days of discharge). CPT code 51963- Transitional Care Management services with high medical decision complexity (cvfl-wx-uzph visit within 7 days of discharge). [email or web address] Not available 03/10/2025 14:29:36 Reason for Referral Parts Identifier Referral for Pr oteinuria Please call patient to schedule. Referring Physician: Sahara Lee Internal Medicine, Encounter Date: 10/14/2024 Records Management Director Referral for Type 2 diabetes mellitus without complication Referring Physician: Sahara Lee Internal Medicine, Encounter Date: 10/14/2024 Parts Identifier Referral for Pr oteinuria Please call patient to schedule an appointment. Thank you. Referring Physician: Sahara Lee Internal Medicine, Encounter Date: 12/29/2024 Records Management Director Referral for Type 2 diabetes mellitus without complication Please call patient to schedule an appointment. Thank you. Referring Physician: Sahara Lee Internal Medicine, Encounter Date: 12/29/2024 Urologist Referral for Cysti tis Please call patient to schedule an appointment. Thank you. Referring Physician: Sahara Lee Internal Medicine, Encounter Date: 12/29/2024 Coal Tower Operator Referral for Paget's disease of pelvis Please call patient to schedule an appointment. Thank you. Referring Physician: Sara Mauricio Medicine, Encounter Date: 12/29/2024 Parts Identifier Referral for Pr oteinuria Please call patient to schedule an appointment. Thank you. Referring Physician: Sahara Lee, Internal Medicine, Encounter Date: 03/10/2025 Records Management Director Referral for Type 2 diabetes mellitus without complication Please call patient to schedule an appointment. Thank you. Referring Physician: Sahara Lee, Internal Medicine, Encounter Date: 03/10/2025 Urologist Referral for Cysti tis Please call patient to schedule an appointment. Thank you. Referring Physician: Sahara Lee, Internal Medicine, Encounter Date: 03/10/2025 Coal Tower Operator Referral for Paget's disease of pelvis Please call patient to schedule an appointment. Thank you. Referring Physician: Sahara Lee, Internal Medicine, Encounter Date: 03/10/2025 Community Educator Referral for Co ronary arteriosclerosis Pleas call patient to schedule an appointment. Thank you. Referring Physician: Sahara Lee, Internal Medicine, Encounter Date: 03/10/2025 Results Created Date Observation Date Name Description Value Unit Range Abnormal Flag Note LastModifiedBy Organization Detail LastModifiedTime 08/25/20 24 08/25/2024 imagi ng/di agnos tic resul t No observ ation record ed. [address], [place], [address], 08/25/2024 07:02:06 11/03/19 25 11/03/2024 imagi ng/di agnos tic resul t No observ ation record ed. [facility] [address], [place], [address], 11/03/2024 13:09:37 03/02/20 25 03/02/2025 imagi ng/di agnos tic resul t No observ ation record ed. [address], [place], [address], 03/02/2025 14:58:10 03/02/20 25 03/02/2025 imagi ng/di agnos tic resul t No observ ation record ed. [address] [address], [place], [address], 03/02/2025 17:32:55 03/02/20 25 03/02/2025 imagi ng/di agnos tic resul t No observ ation record ed. [address] [address], [place], [address], 03/02/2025 17:39:19 03/03/20 25 03/03/2025 imagi ng/di agnos tic resul t No observ ation record ed. [address] [address], [place], [address], 03/03/2025 07:53:32 03/03/20 25 03/03/2025 imagi ng/di agnos tic resul t No observ ation record ed. [address] [address], [place], [address], 03/03/2025 07:54:26 03/03/20 25 03/03/2025 imagi ng/di agnos tic resul t No observ ation record ed. [address] [address], [place], [address], 03/03/2025 17:22:17 03/04/20 25 03/04/2025 imagi ng/di agnos tic resul t No observ ation record ed. [address] [address], [place], [address], 03/04/2025 18:39:48 03/07/20 25 03/07/2025 imagi ng/di agnos tic resul t No observ ation record ed. [address] [address], [place], [address], 03/07/2025 22:20:31 04/03/20 25 04/03/2025 imagi ng/di agnos tic resul t No observ ation record ed. [address] [place], [address], 04/03/2025 14:12:06 04/03/20 25 04/03/2025 imagi ng/di agnos tic resul t No observ ation record ed. [address], [place], [address], 04/03/2025 14:13:27 04/03/20 25 04/03/2025 imagi ng/di agnos tic resul t No observ ation record ed. [address], [place], [address], 04/03/2025 14:31:11 04/03/20 25 04/03/2025 imagi ng/di agnos tic resul t No observ ation record ed. [address], [place], [address], 04/03/2025 14:47:15 04/03/20 25 04/03/2025 imagi ng/di agnos tic resul t No observ ation record ed. [address], [place], [address], 04/03/2025 14:48:25 Result Notes None recorded. Problems Name Problem SNOMED Code Status Onset Date Resolution Date Notes Provider Name and Address Organization Details Recorded Time Diabetes mellitus 68136312 Active 2022 Not Available [facility] 4 05:59:13 Hyperlipid emia 48068610 Active 2022 Not Available [facility] 4 05:59:13 Essential hypertensi on 25457962 Active 2022 Not Available [facility] 4 05:59:13 Type 2 diabetes mellitus without complicati on 757845227 Active 2022 Not Available [facility] 4 05:59:13 Urinary incontinen ce 058111810 Active 2022 Not Available [facility] 4 05:59:13 Gastroesop hageal reflux disease without esophagiti s 474459291 Active 2022 Not Available [facility] 4 05:59:13 Moderate recurrent major depression 41554510 Active 2022 Not Available [facility] 4 05:59:13 Coronary arterioscl erosis 68123274 Active 2022 Not Available [facility] 4 05:59:13 Liver function tests outside reference range 461964284 Active 2022 Not Available [facility] 4 05:59:13 Microalbum inuria 459704438 Active 2022 Not Available [facility] 4 05:59:13 Osteoarthr itis of hip 658532002 Active 2023 Not Available [facility] 4 05:59:13 Pain of right hip joint 6643345988336 02 Active 2023 Lilia Shannon ATC L null, [place] [facility] 4 11:07:46 Low back pain 180281351 Active 2023 Not Available [facility] 4 05:59:13 Neuropathy 101871711 Active 2023 Indigo Sandoval MA null, [place] [facility] 4 10:11:21 Chronic low back pain 864895979 Active 2023 Indigo Sandoval MA null, [place] [facility] 4 11:34:38 Pain of left hip joint 1869745340974 00 Active 2023 SARAH Quezada null, [place] [facility] 4 10:20:52 Blood in urine 47147602 Active 2023 Indigo Sandoval MA null, [place] [facility] 4 12:47:55 Cystitis 96580736 Active 2023 Sahara guzman MD [address] [place] [address], [address] , [place] [facility] 4 16:14:14 Steatotic liver disease 522387546 Active 2023 Sahara guzman MD [address], [address], [place], [address] , [facility] 4 09:40:39 Paget's disease-[facility] 610176663 Active 2023 Indigo Sandoval MA null, [facility] 4 16:11:38 Syncope 775433707 Active 2023 Sahara guzman MD [address], [address], [place], [address] , [employer] 4 13:34:49 Anemia 272667263 Active 2023 Sahara guzman MD [address], [address], [place], [address] , [employer] 4 10:06:31 Peripheral neuropathy due to type 2 diabetes mellitus 0187681264798 Active 2023 Myron Guido DPM [address], [place], [address] , [employer] 4 08:48:27 Onychomyco sis of toenails 264671973 Active 2023 Myron Guido DPM [address], [place], [address] , [employer] 4 08:48:34 Chronic retention of urine 369434979 Active 2023 Gabi Robbins MD [address], [place], [address] , [employer] 4 16:20:24 Proteinuri a 11019854 Active 2023 Sahara guzman MD [address], [place], [address] , [employer] 4 12:09:03 Paget's disease of pelvis 715816359 Active 2024 Sahara guzman MD [address], [place], [address] , [facility] [employer] [facility] [employer] [facility] 5 17:54:58 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 Please review these documents and add these problems to the patient's chart manually as needed. Problem Notes None recorded. Procedures Surgical History Date Name Laterality Status Provider Name and Address Organization Details Recorded Time 05/06/20 25 Medicare Wellness CPT Code, subsequent cancelled [facility] [employer] [facility] [employer] [facility] [employer] 05/05/2025 08:18:46 03/10/20 25 Transitional_Care_M anagement completed Sahara Lee MD [address], [place], [address], [facility] [employer] [facility] [employer] [facility] [employer] 03/10/2025 15:11:27 09/23/19 25 Pacemaker completed SARAH Hadley [place] [facility] [employer] [facility] [employer] 10/14/2024 14:42:19 09/02/20 24 Cath Change completed Roseanne Cruz CMA [facility] [employer] [facility] [employer] [facility] [employer] 09/02/2024 12:25:10 07/17/20 24 Nail Debridement completed Myron Guido DPM [address], [place], [address], [facility] [employer] [facility] [employer] [facility] 07/20/2024 08:48:20 07/14/20 24 Transitional_Care_M anagement completed Sahara Lee MD [address], [place], [address], [facility] 07/14/2024 10:59:07 07/01/20 Colonoscopy completed SARAH Hadley [facility] 07/14/2024 09:56:57 12/26/19 Medicare Wellness CPT Code, subsequent completed Camryn Donahue [facility] 12/24/2023 13:07:44 Tonsillectomy completed Yin Westfall [facility] 08/27/2023 14:48:35 Cholecystectomy completed Yin Westfall [facility] 08/27/2023 14:48:41 total knee replacement completed Yin Westfall [facility] 08/27/2023 14:49:12 Orthopedic Surgery completed Yin Westfall [facility] 08/27/2023 14:49:39 Bladder completed Yin Westfall [facility] 12/29/2024 17:22:13 Imaging Results None recorded. Procedure Notes None recorded. Medical Equipment None Reported. Allergies Allergen ID Allergen Name Allergen Category Reaction Reaction Severity Criticality Documentation Date Start Date Code Code System Note Provider Name and Address Organization Details Recorded Time 19234 morphine medicatio n Not available Not available Not available 06/04/2024 7052 RxROGER Jackson [facility] 4 09:55:19 38098 aspirin medicatio n Not available Not available Not available 06/04/2024 1191 ROGER Talavera [facility] 4 09:55:37 99888 amitripty line medicatio n Not available Not available Not available 06/04/2024 704 ROGER Talavera [facility] 4 09:55:45 Medications Name Sig Start [...] completed Not Available Not Available Not Available levofloxaci n 750 mg tablet TAKE 1 TABLET BY MOUTH EVERY DAY active Not Available Not Available No t Available methylpredn isolone 4 mg tablets in [...] 1 TABLET BY MOUTH TWICE A DAY 2024 active Not Available Not Available Not Avai lable nitrofurant oin monohydrate /macrocryst als 100 mg [...] DateTime 10/02/2024 185.42 cm Roseanne Cruz CMA [facility] 10/02/2024 11:08:37 Date Recorded Body height Body mass index (BMI) Body weight Body temperature Heart rate Systolic And Diastolic Provider Name and Address Organization Details Last Updated DateTime 5 185.42 cm 27.2 kg/m2 42685.0 3 g 97.9 [degF] 78 /min 120/60 mm[Hg] Yin Westfall Carmenza [facility] [employer] [facility] 5 14:48:27 Date Recorded Body height Body mass index (BMI) Body weight Body temperature Heart rate Systolic And Diastolic Provider Name and Address Organization Details Last Updated DateTime 5 185.42 cm 29 kg/m2 03933.3 2 g 97.2 [degF] 78 /min 136/62 mm[Hg] Yin Westfall Carmenza [place] [facility] 5 17:24:18 Date Recorded Body height Body mass index (BMI) Body weight Body temperature Heart rate Oxygen saturation Oxygen saturation in Arterial blood by Pulse oximetry Pain severity - 0-10 verbal numeric rating [Score] - Reported Systolic And Diastolic Provider Name and Address Organization Details Last Updated DateTime 5 185.42 cm 28.2 kg/m2 01369.7 7 g 98.3 [degF] 70 /min 97 % 97 % 4 138/68 mm[Hg] Savannah Gibson MA [place] [employer] [facility] 5 14:36:10 Date Recorded Body height Heart rate Body temperature Body mass index (BMI) Body weight Oxygen saturation Oxygen saturation in Arterial blood by Pulse oximetry Systolic And Diastolic Provider Name and Address Organization Details Last Updated DateTime 4 185.42 cm 80 /min 97 [degF] 27.7 kg/m2 99169.4 g 94 % 94 % 147/65 mm[Hg] Roseanne Cruz CMA [place] [employer] [facility] 4 10:39:12 Social History Question Answer Notes LastModified by Organization Details LastModified Time Tobacco Smoking Status Former Smoker quit age 41 SARAH [place] [employer] [facility] 10/14/2024 14:44:47 Do You Have An Advance [...] Or The Highest Degree You Have Received? [id number] Information not available 08/27/2023 Have There Been [...] You Able To Care For Yourself? Yes [email or web address] Information not available 12/26/2023 Are You Blind Or Do Yo Have Difficulty Seeing? No [email or web address] Information not available 12/26/2023 Are You Deaf Or Do You Have Serious Difficulty Hearing? Yes [email or web address] Information not available 12/26/2023 Live Alone Of With Others? With Others [email or web address] Information not available 12/26/2023 Do You Have A Medical Power Of Leaf Coverer? Yes Information not available 08/27/2023 What Was [...] not available 08/27/2023 Are you able to walk independently without assistance or assistive devices? YESWOREST Information not available 08/27/2023 Do you have difficulty doing errands alone? No Information not available 08/27/2023 Are you able to care for yourself independently? Yes Information not available 08/27/2023 Do you have difficulty dressing, bathing, grooming, or toileting? No Information not available 08/27/2023 What is your exercise level? None Information not available 08/27/2023 Mental Status Question Answer Note LastModified by Organizat ion Details LastModified Time Do you feel stressed (tense, restless, nervous, or anxious, or unable to sleep at night)? QC5468-6 Information not available 08/27/2023 Do you have difficulty concentrating, remembering or making decisions? Yes Information no t available 08/27/2023 Family History Relationship Description Onset Age of this Age Resolved Age Notes LastModified by Organization Details LastModified Time Son Aortic valve stenosis 10 [email or web address] Not available 09/02 10:03:12 Sister Diabetes mellitus Not available 2022 14:42:08 Mother Myocardial infarction Not available 08/27 14:42:20 Mother Heart disease [email or web address] Not available 02/2024 11:06:02 Father Leukemia [email or web address] Not availab le 09/02/2024 10:03:12 Brother Diabetes [...] Diagnosis SNOMED-CT Code Diagnosis ICD10 Code Diagnosis IMO Codes Diagnosis Note [id number] Sahara guzman MD [facility] Internal Med [facility] [address] [facility] [address] [place] [address] 08/27/2023 14:08:20 08/27/2023 15:23:27 Screening - NAD 188580290 Z13.9 C-scope: Get this done Get yearly flu shotGet tdap if not doneGet COVID 19 vaccineGet PCV #20Get Shingrix and RSV vaccinesHe has declined all his vaccines 08/27/2023 RTC in 4 months, do labs, ER if worse, he and his son verbalized his understand ing of the above Essential hypertension 38922905 I10 On lisinopril 2.5mg dailyGet labsGet a referral to cardiology Hyperlipidemia 25570506 E78.5 On ASAOn atorvastat in 80mg 1/2 tab dailyGet labs 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 088782716 E11.9 On synjardy XR 5-500mg bidOn trulicity 1.5mg weeklyGet labs Urinary incontinence 165 994595 R32 On flomaxOn myrbetriq Screening for malignant neoplasm of colon 020978404 Z12.11 Screening for malignant neoplasm of prostate 781370084 Z12.5 Ex-cigarette smoker 2810 82451 Z87.891 Get US AAA Gastroesop hageal reflux disease without esophagitis 738903951 K21.9 On omeprazole 20mg daily, take PRN, get EGD Moderate r ecurrent major depression 73298882 F33.1 States that he did use to have PTSD, [facility], used to be on medication s, but has not taken these, used to see psychiatry in the past, declines any meds or referrals, states that he is doing very well, not suicidal or homicidal Coronary arteriosclerosis 29760044 I25.10 On eliquisSho uld NOT be on coumadinNe eds to see cardiology 7706342 Mode Jerez MD [facility] [address] [place] [address] 10/29/2023 10:34:14 10/29/2023 11:28:20 Pain of right hip joint 2976972364 19074 M25.551 Low back pain 588989845 M54.50 [id number] Mode Jerez MD [facility] [place] [address] [place] [address] 11/26/2023 10:10:38 11/26/2023 11:16:18 Pain of left hip joint [id number] 88213 M25.552 Low back pain 001559231 M54.50 [id number] Sahara guzman MD [facility] Internal Med [address] [facility], [facility] [address] [place] [address] 12/26/2023 17:21:50 12/26/2023 18:05:09 Screening - NAD 080104067 Z13.9 C-scope: Get this done Get yearly flu shotGet tdap if not doneGet COVID 19 vaccineGet PCV #20Get Shingrix and RSV vaccinesHe has declined all his vaccines 08/27/2023 RTC in 4 months, do labs, ER if worse, he verbalized his understand ing of the above Essential hypertension 23481337 I10 On lisinopril 2.5mg dailyGet labsGet a referral to cardiology Hyperlipidemia 92050913 E78.5 On ASAOn atorvastat in 80mg 1/2 tab dailyGet labs 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 546292998 E11.9 On metformin ER 500mg bidOn synjardy XR 5-500mg bid, d/c this as he is already on metforminO n trulicity 1.5mg weeklyGet labs Urinary incontinence 165 357475 R32 On flomaxOn myrbetriq Screening for malignant neoplasm of colon 045164010 Z12.11 Ex-cigarette smoker 2810 71940 Z87.891 AAA: 10/14/2023 : Neg Gastroesop hageal reflux disease without esophagitis 905785312 K21.9 On omeprazole 20mg daily, take PRN, get EGD Moderate r ecurrent major depression 24030265 F33.1 States that he did use to have [facility] used to be on medication s, but has not taken these, used to see psychiatry in the past, declines any meds or referrals, states that he is doing very well, not suicidal or homicidal Coronary arteriosclerosis 78939327 I25.10 On eliquisSho jorge NOT be on coumadinNe eds to see cardiology Cystitis 42587783 N30.90 S/p ER 12/05/2023 , s/p CT A/P 12/05/2023 Referred to urology Pain of le ft hip joint [id number] 68356 M25.552 [facility] 11/26/2023 Dr Jerez/Magy 11/26/2023 , treated with PT Low back pain 658179686 M54.50 Addnedum 11/26/2023 See case on 11/14/2023 , tramadol sent On methocarbo mol, see [facility] note, should stop thisAlso stop any NSAIDs Referred to Dr Payne ortho spine surgeonAls o to see Dr Jerez on 01/01/2024 Adult heal th examination 918509036 Z00.00 Screening for disorder 317170586 Z13.9 [id number] Sahara guzman MD [facility] Internal Med [address] [facility], [address] [place] [address] 06/04/2024 09:47:52 06/04/2024 10:38:05 Screening - NAD 614339465 Z13.9 C-scope: Get this done Get yearly flu shotGet tdap if not doneGet COVID 19 vaccineGet PCV #20Get Shingrix and RSV vaccinesHe has declined all his vaccines 08/27/2023 RTC in 4 months, do labs, ER if worse, he verbalized his understand ing of the above Essential hypertension 68853360 I10 On lisinopril 2.5mg dailyGet labsGet a referral to cardiology Hyperlipidemia 68269474 E78.5 On ASAOn atorvastat in 80mg 1/2 tab dailyGet labs 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 463079203 E11.9 On metformin ER 500mg bidOn synjardy XR 5-500mg bid, d/c this as he is already on metforminO n trulicity 1.5mg weeklyGet labs Urinary incontinence 165 668008 R32 On flomaxOn myrbetriq 12/05/2023 : [facility] ER s/p fall hematuria, CT A/P CT A/P 01/29/2024 d/t hematuria from recent cystoscopy [facility] 03/29/2024 :CT A/P: 03/29/2024 : L hydronephr osis Bladder Bx: 04/10/2024 : Dr Freeman Screening for malignant neoplasm of colon 724471370 Z12.11 Ex-cigarette smoker 2810 91380 Z87.891 AAA: 10/14/2023 : Neg Gastroesop hageal reflux disease without esophagitis 256799854 K21.9 On omeprazole 20mg daily, take PRN, get EGD Moderate r ecurrent major depression 39251713 F33.1 States that he did use to have PTSD, [facility], used to be on medication s, but has not taken these, used to see psychiatry in the past, declines any meds or referrals, states that he is doing very well, not suicidal or homicidal Coronary arteriosclerosis 35024971 I25.10 [facility] NOT be on coumadinNe eds to see cardiology Cystitis 79881913 N30.90 S/p ER 12/05/2023 , s/p CT A/P 12/05/[address] A/P 01/29/2024 d/t hematuria from recent cystoscopy [facility] 03/29/2024 :CT A/P: 03/29/2024 : L hydronephr osis Bladder Bx: 04/10/2024 : Dr Freeman Pain of le ft hip joint 5250646627 97869 M25.552 [facility] 11/26/2023 Dr Jerez/Magy 11/26/2023 , treated with PT Low back pain 738313813 M54.50 Addnedum 11/26/2023 See case on 11/14/2023 , tramadol sent On methocarbo mol, see [facility] note, should stop thisAlso stop any NSAIDs Referred to Dr Payne ortho spine surgeonAls o to see Dr Jerez on 01/01/2024 MRI T/C spine 05/01/2024 Steatotic liver disease 639003510 K76.0 12/05/2023 : CT A/PUS liver 10/14/2023 Get labs Screening for malignant neoplasm of prostate 770057896 Z12.5 [id number] Sahara guzman MD [facility] Internal Med [facility] [address] [facility], [address] [place] [address] 07/14/2024 09:47:47 07/14/2024 10:40:52 Screening - NAD 946563366 Z13.9 C-scope: Get this done Get yearly flu shot, declined 07/14/2024 Get tdap if not doneGet COVID 19 vaccineGet PCV #20Get Shingrix and RSV vaccinesHe has declined all his vaccines 08/27/2023 , 07/14/2024 RTC in 4 months, do labs, ER if worse, he and his son did verbalize his understand ing of the above Essential hypertension 06048362 I10 On lisinopril 2.5mg daily, do not take till seen by cardiology d/t recent hospitaliz ation for syncope, d/c 07/08/2024 Get labsGet a referral to cardiology Hyperlipidemia 03771927 E78.5 On ASAOn atorvastat in 80mg 1/2 tab dailyGet labs 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 872291289 E11.9 On metformin ER 500mg bidOn synjardy XR 5-500mg bid, d/c this as he is already on metforminO n trulicity 1.5mg weeklyGet labs Urinary incontinence 165 099624 R32 On flomaxOn myrbetriq 12/05/2023 : [facility] ER s/p fall hematuria, CT A/P CT A/P 01/29/2024 d/t hematuria from recent cystoscopy [place] [facility] 03/29/2024 :CT A/P: 03/29/2024 : L hydronephr osis Bladder Bx: 04/10/2024 : Dr Freeman Screening for malignant neoplasm of colon 186699570 Z12.11 Ex-cigarette smoker 2810 74306 Z87.891 [place] AAA: 10/14/2023 : Neg Gastroesop hageal reflux disease without esophagitis 532562828 K21.9 On omeprazole 20mg daily, take PRN, get EGD Moderate r ecurrent major depression 06932424 F33.1 States that he did use to have PTSD, [facility], used to be on medication s, but has not taken these, used to see psychiatry in the past, declines any meds or referrals, states that he is doing very well, not suicidal or homicidal Coronary arteriosclerosis 75239932 I25.10 On eliquis, restarted on at D/c from [facility] on 07/08/2024 Should NOT be on coumadinNe eds to see cardiology Cystitis 72675291 N30.90 S/p ER 12/05/2023 , s/p CT A/P 12/05/[address] A/P 01/29/2024 d/t hematuria from recent cystoscopy [place] [facility] 03/29/2024 :CT A/P: 03/29/2024 : L hydronephr osis Bladder Bx: 04/10/2024 : Dr Freeman Seen in the ER and admitted to [place] and D/c 07/08/2024 : Noted to have hematuria, has to see Dr Cantrell on flomax 0.4mg daily Pain of le ft hip joint 8977402421 40332 M25.552 [place] ER 11/26/2023 Dr Jerez/Magy 11/26/2023 , treated with PT Low back pain 945117589 M54.50 Addnedum 11/26/2023 See case on 11/14/2023 , tramadol sent On methocarbo mol, see [facility] note, should stop thisAlso stop any NSAIDs Referred to Dr Payne ortho spine surgeonAls o to see Dr Jerez on 01/01/2024 MRI T/C spine 05/01/2024 On gabapentin 300mg tid Steatotic liver disease 394978424 K76.0 12/05/2023 : CT A/PUS liver 10/14/2023 Syncope 206445722 R55 S/p D[facility] 07/04/2024 XR Chest 07/04/2024 ECHO 07/04/2024 : 55-60%MRI brain 07/07/2024 : [facility] eds to see Dr Freeman Transition of care 20803 57078 105 Z75.8 Anemia 796223201 D64.9 On iron 325mg daily, get labs Neuropathy 781647000 G62 [address] Mills anS/p EMG [id number] Myron Guido DPM [facility] Podiatry [facility] [address], [facility] [place] [address] 07/17/2024 09:50:02 07/21/2024 09:34:00 Peripheral neuropathy due to type 2 diabetes mellitus 9411716116 107 E11.42 Onychomyco sis of toenails 710044191 B35.1 [id number] Gabi Robbins MD [facility] Urology [address] [facility] [place] [address] 08/07/2024 15:13:33 08/07/2024 16:26:29 Chronic retention of urine 349548084 R33.8 [id number] aShara guzman MD [facility] Primary Care [facility] [address] [facility] [address] [place] [address] 08/12/2024 11:22:19 08/12/2024 12:43:30 Screening - NAD 141001737 Z13.9 C-scope: Get this done Get yearly [...] apt with urology and cardiology Essential hypertension 47534543 I10 On lisinopril 2.5mg daily, do not take till seen by cardiology d/t recent hospitaliz ation for syncope, d/c 07/08/2024 Get labsGet a referral to cardiology Hyperlipidemia 79304990 E78.5 On ASAOn atorvastat in 80mg 1/2 tab dailyGet labs 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 291306336 E11.9 On metformin ER 500mg bidOn synjardy XR 5-500mg bid, d/c this as he is already on metforminO n trulicity 1.5mg weeklyGet labs Urinary incontinence 165 440323 R32 On flomaxOn myrbetriq 12/05/2023 : [facility] ER s/p fall hematuria, CT A/P CT A/P 01/29/2024 d/t hematuria from recent cystoscopy [facility] 03/29/2024 :CT A/P: 03/29/2024 : L hydronephr osis Bladder Bx: 04/10/2024 : Dr Freeman Ex-cigarette smoker 2810 47868 Z87.891 [place] AAA: 10/14/2023 : Neg Coronary arteriosclerosis 21548816 I25.10 On eliquis, restarted on at D/c from [facility] on 07/08/2024 Should NOT be on coumadin Dr Sofia [facility] 08/06/2024 : On eliquis, and has to see Dr Gee Gastrojanuaryop hageal reflux disease without esophagitis 234365443 K21.9 On omeprazole 20mg daily, take PRN, get EGD Moderate r ecurrent major depression 24347586 F33.1 States that he did use to have [facility], [facility], used to be on medication s, but has not taken these, used to see psychiatry in the past, declines any meds or referrals, states that he is doing very well, not suicidal or homicidal Cystitis 49044370 N30.90 On flomaxOn Myrbetriq 50mg daily S/p ER 12/05/2023 , s/p CT A/P 12/05/2023 Referred to urologyCT A/P 01/29/2024 d/t hematuria from recent cystoscopy [facility] 03/29/2024 :CT A/P: 03/29/2024 : L hydronephr osisBladde r Bx: 04/10/2024 : Dr Edward in the ER and admitted to [place] and D/c 07/08/2024 : Noted to have hematuria, has to see Dr Pete Robbins 08/07/2204 : to get monthly Omer Cath done Pain of le ft hip joint 4103386135 75145 M25.552 [place] ER 11/26/2023 Dr Jerez/Magy 11/26/2023 , treated with PT Low back pain 913632155 M54.50 Addnedum 11/26/2023 See case on 11/14/2023 , tramadol sent On methocarbo mol, see [facility] note, should stop thisAlso stop any NSAIDs Referred to Dr Payne ortho spine surgeonAls o to see Dr Jerez on 01/01/2024 MRI T/C spine 05/01/2024 On gabapentin 300mg tid Steatotic liver disease 196713640 K76.0 12/05/2023 : CT A/PUS liver 10/14/2023 Hep panel/GGT: Neg 06/04/2024 Repeat US liver, ordered 08/12/2024 Syncope 888490310 R55 [facility] 07/04/2024 XR Chest 07/04/2024 ECHO 07/04/2024 : 55-60%MRI brain 07/07/2024 : [facility] OV 08/12/2024 : Does well now Anemia 435503996 D64.9 On iron 325mg daily, get labs Neuropathy 391502399 G62 [address] Mills anS/p EMG Proteinuria 38953656 R80 .9 Refer to nephrology [id number] Gabi Robbins MD [facility] Urology [address] [address] 09/02/2024 09:59:47 09/02/2024 10:35:07 Chronic retention of urine 398751828 R33.8 [id number] Gabi Robbins MD [facility] Urology [address] [facility] [address] [place] [address] 10/02/2024 10:44:50 10/02/2024 11:27:52 Chronic retention of urine 190789315 R33.8 [id number] Sahara guzman MD [facility] Primary Care Cathryn rodríguez [address] [facility] [address] [place] [address] 10/14/2024 14:34:18 10/14/2024 15:06:28 Screening - NAD 053503683 Z13.9 C-scope: Get this done Get yearly [...] apt with urology and cardiology Essential hypertension 48800471 I10 Not on lisinopril 2.5mg daily, do not take till seen by cardiology d/t recent hospitaliz ation for syncope, d/c 07/08/2024 Get labs Hyperlipidemia 46684670 E78.5 On ASAOn atorvastat in 80mg 1/2 tab dailyGet labs 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 910800402 E11.9 On metformin ER 500mg bidOn synjardy XR 5-500mg bid, d/c this as he is already on metforminO n trulicity 1.5mg weeklyGet labs Urinary incontinence 165 922243 R32 On flomaxOn myrbetriq 12/05/2023 : [facility] ER s/p fall hematuria, CT A/P CT A/P 01/29/2024 d/t hematuria from recent cystoscopy [facility] 03/29/2024 :CT A/P: 03/29/2024 : L hydronephr osis Bladder Bx: 04/10/2024 : Dr Freeman Ex-cigarette smoker 2810 60023 Z87.891 [place] AAA: 10/14/2023 : Neg Coronary arteriosclerosis 90888702 I25.10 On eliquis, restarted on at D/c from [facility] on 07/08/2024 Should NOT be on coumadin OV 10/14/2024 :Dr Sofia [facility] 08/06/2024 : On eliquis, and has to see Dr Gee and is s/p PCM insertion Gastroesop hageal reflux disease without esophagitis 752169940 K21.9 On omeprazole 20mg daily, take PRN,Get EGD report Moderate r ecurrent major depression 96344579 F33.1 States that he did use to have [facility], [facility], used to be on medication s, but has not taken these, used to see psychiatry in the past, declines any meds or referrals, states that he is doing very well, not suicidal or homicidal Cystitis 58106981 N30.90 On flomaxOn Myrbetriq 50mg daily S/p ER 12/05/2023 , s/p CT A/P 12/05/2023 Referred to urologyCT A/P 01/29/2024 d/t hematuria from recent cystoscopy [place] [facility] 03/29/2024 :CT A/P: 03/29/2024 : L hydronephr osisBladde r Bx: 04/10/2024 : Dr Edward in the ER and admitted to [place] and D/c 07/08/2024 : Noted to have hematuria, has to see Dr Pete Robbins 08/07/2204 : to get monthly Omer Cath done Pain of le ft hip joint 1810003709 65378 M25.552 [place] ER 11/26/2023 Dr Jerez/Magy 11/26/2023 , treated with PT Low back pain 964757736 M54.50 Addnedum 11/26/2023 See case on 11/14/2023 , tramadol sent On methocarbo mol, see [facility] note, should stop thisAlso stop any NSAIDs Referred to Dr Payne ortho spine surgeonAls o to see Dr Jerez on 01/01/2024 MRI T/C spine 05/01/2024 On gabapentin 300mg tid Steatotic liver disease 112042584 K76.0 12/05/2023 : CT A/PUS liver 10/14/2023 Hep panel/GGT: Neg 06/04/2024 Repeat US liver, ordered 08/12/2024 Syncope [id number] R55 S/p D[facility] 07/04/2024 XR Chest 07/04/2024 ECHO 07/04/2024 : 55-60%MRI brain 07/07/2024 : [facility] OV 08/12/2024 : Does well now Anemia 009791360 D64.9 On iron 325mg daily, get labs Neuropathy 586805703 G62 .[address] Mills anS/p EMG Proteinuria 18309061 R80 .9 Refer to nephrology Screening for malignant neoplasm of colon 436038395 Z12.11 Get C-scope report [id number] Sahara guzman MD [facility] Internal Med [address] [facility], [facility] [address] [place] [address] 12/29/2024 16:37:02 12/29/2024 18:14:17 Screening - NAD 500240266 Z13.9 C-scope/EG : Dr Aguilar Get yearly flu shot, declined 07/14/2024 Get tdap if not doneGet COVID 19 vaccineGet PCV #20Get Shingrix and RSV vaccinesHe has declined all his vaccines 08/27/2023 , 07/14/2024 RTC in 2 months, do labs, ER if worse, he and his son did verbalize his understand ing of the above Essential hypertension 27196507 I10 Not on lisinopril 2.5mg dailyGet labs Hyperlipidemia 13917002 E78.5 On ASAOn atorvastat in 80mg 1/2 tab dailyGet labs 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 360142119 E11.9 On metformin ER 500mg bidNot on synjardy XR 5-500mg bid, d/c this as he is already on metforminO n trulicity 1.5mg weeklyGet labs Urinary incontinence 165 114278 R32 On flomaxOn myrbetriq 12/05/2023 : [facility] ER s/p fall hematuria, CT A/P CT A/P 01/29/2024 d/t hematuria from recent cystoscopy [place] [facility] 03/29/2024 :CT A/P: 03/29/2024 : L hydronephr osis Bladder Bx: 04/10/2024 : Dr Freeman Ex-cigarette smoker 2810 56537 Z87.891 [place] AAA: 10/14/2023 : Neg Coronary arteriosclerosis 54379494 I25.10 On eliquis, restarted on at D/c from [facility] on 07/08/2024 Should NOT be on coumadin OV 10/14/2024 :Dr Sofia [facility] 08/06/2024 : On eliquis, and has to see Dr Gee and is s/p PCM insertion OV 12/29/2024 : Keep apt with cardiology Gastroesop hageal reflux disease without esophagitis 408916005 K21.9 On omeprazole 20mg daily, take PRN,Get EGD report Moderate r ecurrent major depression 18504494 F33.1 States that he did use to have PTSD, [facility], used to be on medication s, but has not taken these, used to see psychiatry in the past, declines any meds or referrals, states that he is doing very well, not suicidal or homicidal Cystitis 73028725 N30.90 On flomaxOn Myrbetriq 50mg daily S/p ER 12/05/2023 , s/p CT A/P 12/05/2023 Referred to urologyCT A/P 01/29/2024 d/t hematuria from recent cystoscopy [place] [facility] 03/29/2024 :CT A/P: 03/29/2024 : L hydronephr osisBladde r Bx: 04/10/2024 : Dr Edward in the ER and admitted to [place] and D/c 07/08/2024 : Noted to have hematuria, has to see Dr Pete Robbins 08/07/2204 : to get monthly Omer Cath done OV 12/29/2024 : Now should see urology, referred Pain of le ft hip joint 8557911032 91255 M25.552 [place] ER 11/26/2023 Dr Jerez/Magy 11/26/2023 , treated with PT Low back pain 745435403 M54.50 Addnedum 11/26/2023 See case on 11/14/2023 , tramadol sent On methocarbo mol, see [facility] note, should stop thisAlso stop any NSAIDs Referred to Dr Payne ortho spine surgeonAls o to see Dr Jerez on 01/01/2024 MRI T/C spine 05/01/2024 On gabapentin 300mg tid Steatotic liver disease 194991183 K76.0 12/05/2023 : CT A/PUS liver 10/14/2023 Hep panel/GGT: Neg 06/04/2024 US liver 11/03/2024 : Neg Syncope [id number] R55 S/p D[facility] 07/04/2024 XR Chest 07/04/2024 ECHO 07/04/2024 : 55-60%MRI brain 07/07/2024 : [facility] OV 08/12/2024 : Does well now Anemia 250096854 D64.9 On iron 325mg daily, get labs Neuropathy 831259012 G62 .[address] Mills anS/p EMG Proteinuria 24584621 R80 .9 Refer to nephrology Paget's di sease of pelvis 082310210 M88.88 S/p CT A/P 11/03/2024 Refer to rheumatolo gy [id number] Sahara guzman MD [facility] Primary Care Cathryn rodríguez [address] [facility] [address] [place] [address] 03/10/2025 14:24:16 03/10/2025 15:10:25 Screening - NAD 937601868 Z13.9 C-scope/EG : Dr Aguilar Get yearly flu shot, declined 07/14/2024 Get tdap if not doneGet COVID 19 vaccineGet PCV #20Get Shingrix and RSV vaccinesHe has declined all his vaccines 08/27/2023 , 07/14/2024 RTC in 2 months, do labs, ER if worse, he and his son did verbalize his understand ing of the above Essential hypertension 14881162 I10 Not on lisinopril 2.5mg dailyGet labs Hyperlipidemia 96178411 E78.5 On ASAOn atorvastat in 80mg 1/2 tab dailyGet labs 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 815499763 E11.9 On metformin ER 500mg bidNot on synjardy XR 5-500mg bid, d/c this as he is already on metforminO n trulicity 1.5mg weeklyGet labs Urinary incontinence 165 546568 R32 On flomaxOn myrbetriq 12/05/2023 : [facility] ER s/p fall hematuria, CT A/P CT A/P 01/29/2024 d/t hematuria from recent cystoscopy [place] ER 03/29/2024 :CT A/P: 03/29/2024 : L hydronephr osis Bladder Bx: 04/10/2024 : Dr Freeman Ex-cigarette smoker 7660 25980 Z87.891 [place] AAA: 10/14/2023 : Neg Coronary arteriosclerosis 68879515 I25.10 On eliquis, restarted on at D/c from [facility] on 07/08/2024 Should NOT be on coumadin OV 10/14/2024 :Dr Sofia [facility] 08/06/2024 : On eliquis, and has to see Dr Gee and is s/p PCM insertion OV 12/29/2024 : Keep apt with cardiology OV 03/10/2025 : Seen in the ER and hospital at [place] Dr Kaiser has to see Dr Sofia and Dr GeeA lso start on metoprolol 25mg po bid and mag ox 400mg bid as per Dr Sofia with whom i personally called and he will be also seen today at [facility] Gastroesop hageal reflux disease without esophagitis 149672400 K21.9 On omeprazole 20mg daily, take PRN,Get EGD report Moderate r ecurrent major depression 77283528 F33.1 States that he did use to have [facility], used to be on medication s, but has not taken these, used to see psychiatry in the past, declines any meds or referrals, states that he is doing very well, not suicidal or homicidal Cystitis 54770605 N30.90 On flomaxOn Myrbetriq 50mg daily S/p ER 12/05/2023 , s/p CT A/P 12/05/2023 Referred to urologyCT A/P 01/29/2024 d/t hematuria from recent cystoscopy [facility] 03/29/2024 :CT A/P: 03/29/2024 : L hydronephr osisBladde r Bx: 04/10/2024 : Dr Edward in the ER and admitted to [place] and D/c 07/08/2024 : Noted to have hematuria, has to see Dr Pete Robbins 08/07/2204 : to get monthly Omer Cath done OV 12/29/2024 : Now should see urology, referred OV 03/10/2025 :S/p ER [place] 03/07/2025 CT A/P 03/07/2025 : Non obstructin g renal calculi Pain of le ft hip joint 7055001483 92183 M25.552 [facility] 11/26/2023 Dr Jerez/Magy 11/26/2023 , treated with PT Low back pain 002739233 M54.50 Addnedum 11/26/2023 See case on 11/14/2023 , tramadol sent On methocarbo mol, see [facility] note, should stop thisAlso stop any NSAIDs Referred to Dr Payne ortho spine surgeonAls o to see Dr Jerez on 01/01/2024 MRI T/C spine 05/01/[address] On gabapentin 300mg tid Dr Hong CT L Spine 03/03/2025 Steatotic liver disease 366547995 K76.0 12/05/2023 : CT A/PUS liver 10/14/2023 Hep panel/GGT: Neg 06/04/2024 US liver 11/03/2024 : Neg Syncope 253029851 R55 S/p D[facility] 07/04/2024 XR Chest 07/04/2024 ECHO 07/04/2024 : 55-60%MRI brain [facility] : [facility] OV 08/12/2024 : Does well now Anemia 760628524 D64.9 On iron 325mg daily, get labs Neuropathy 372469465 G62 .[address] Mills anS/p EMG Proteinuria 00440326 R80 .9 Refer to nephrology Paget's di sease of pelvis 835516615 M88.88 S/p CT A/P 11/03/2024 Refer to rheumatolo gy Transition of care 34796 90292 105 Z75.8 Health Concerns Section Related Observation LastModified by Organization Detai ls LastModified Time None Recorded Concern Status LastModified by Organization Details LastModified Time None Recorded Advance Directives Directive Y: Payers Insurance Date Sequence Insurance Name Policy Number Policy Robles Covered Member ID Robles Member ID Guarantor Name 12/25/2024 2 [place] Cosme Javier [id number] Cosme Javier 09/01/[address] [facility] (MEDICARE REPLACEMENT/A DVANTAGE - PPO) Cosme Javier [id number] Cosme Javier 05/05/2025 2 [place] MEDICARE OR MEDICARE REPLACEMENT PRIMARY) Cosme Javier [id number] Cosme Javier 09/01/2024 1 [employer] [place] DVANTAGE - [place]) Cosme Javier [id number] Cosme Javier 05/04/[address] [facility] (MEDICARE REPLACEMENT/A DVANTAGE - O) [id number] Cosme Javier [id number] Cosme Javier Notes Date Note Type Note Provider Name and Address Organization Details Recorded Time 09/02/2024 text/html this patient is here for a catheter change. He wants to continue with catheter changes he does not want a suprapubic tube he is doing well Gabi Robbins MD [address], [place], [address], [employer] [facility] 09/02/2024 12:31:40 10/02/2024 text/html this patient is coming in to get a suprapubic tube changed Gabi Robbins MD [address], [place], [address], [employer] [facility] 10/02/2024 13:50:45 10/14/2024 text/html OV 08/27/2023:Here to establish carePast Hx:[id number] smoker Reviewed social [...] hosp f/u apt, he was d/c from [facility] 07/08/2024 for an episode of syncope, [...] now s/p PCM insertion with Dr Gee [facility] Sahara Lee MD [address], [address], [place], [address], [facility] [employer] [facility] [employer] [facility] 10/14/2024 15:04:31 12/29/2024 text/html OV 08/27/2023:Here to establish carePast Hx:ELIANJens smoker Reviewed social family and surgical historyHere [...] hosp f/u apt, he was d/c from [facility] 07/08/2024 for an episode of syncope, [...] now s/p PCM insertion with Dr Gee [facility] OV 12/29/2024: Here for his f/u apt, he is doing well today Sahara Lee MD [address] [facility] [address], [place], [address], [facility] [employer] [facility] [employer] [facility] 12/29/2024 18:25:24 03/10/2025 text/html OV 08/27/2023:Here to establish carePast Hx:HTNBRENDAVEROBelkysErnesto smoker Reviewed social family and surgical historyHere [...] hosp f/u apt, he was d/c from [facility] 07/08/2024 for an episode of syncope, [...] now s/p PCM insertion with Dr Gee [facility] OV 12/29/2024: Here for his f/u apt, he is doing well today OV 03/10/2025: Here for his post hospital f/u, s/p d/c for UTI as well as syncope, today is doing much better, still has his indwelling cath Sahara Lee MD [address] [place] [address] [address], [place], [address], [facility] 03/10/2025 15:12:49
--- OUTSIDE RECORDS SUMMARY | 2025-06-29 02:43 | XMS_ITS | Encounter Summary ---
Author Organization [facility] Address 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
--- OUTSIDE RECORDS SUMMARY | 2025-06-29 02:43 | XMS_ITS | Encounter Summary ---
Author Organization [facility] Address 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
--- OUTSIDE RECORDS SUMMARY | 2025-06-29 02:43 | XMS_ITS | Encounter Summary ---
Author Organization [facility] Address 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
--- OUTSIDE RECORDS SUMMARY | 2025-06-29 02:43 | XMS_ITS | Encounter Summary ---
Author Organization [facility] Address 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
--- OUTSIDE RECORDS SUMMARY | 2025-06-29 02:43 | XMS_ITS | Encounter Summary ---
Author Organization [facility] Address [address] [place] [address] Care Team Providers Care Spooler Operator Automatic Name Role Phone Unknown, Provider Primary Care Provider Unavaila ble Reason for Visit * Reason Onset Date Comments Med Question 06/18/2024 Encounter Details Date Type Department Care Team (Late st Contact Info) Description 06/18/2024 Telephone [facility] - Centralized Scheduling [address] [place] [address] Thao Neri MD [address] [address] Med Question Social History Tobacco Use Types Packs/Day Years Used Date Smoking Tobacco: Former Smokeless Tobacco: Never Alcohol Use Standard Drinks/Week Comments No 0 (1 standard drink = 0.6 oz pur e alcohol) Sex and Gender Information Value Date Recorded Sex Assigned at Not on file 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
--- OUTSIDE RECORDS SUMMARY | 2025-06-29 02:43 | XMS_ITS | Clinical Summary ---
Author Organization [facility] Address [address] [facility] [address] [place] [address] Phone Care Team Providers Care Drier Operator Name Role Phone Dear, Campbell Bullard DO [...] hyperglycemia, without long-term current use of insulin INJECT 0.5ML(1.5MG) SUBCUTANEOUS EVERY 7 DAYS 6 mL 1 2 Active lisinopriL (PRINIVIL) 2.5 mg tabletIndicatio ns:Type 2 diabetes mellitus with hyperglycemia, without long-term current use of insulin Take 1 Tablet (2.5 mg) by mouth [...] on file Legal Sex Male 5:24 AM HAND FLESHER Gender Identity Not on file Sexual Orientation [...] history exists Medical Devices Implanted Type Area Dough Raiser Device Identifier Shelf Expiration Date Model / Serial / Lot Knee Description:bilateral Hardware Description:head Procedures Procedure Name Priority Date/Time Associated Diagnosis Comments HEMOGLOBIN A1C Routine 12/07/2023 11:36 PM CDT MICROALBUMIN/CREATIN INE RATIO, RANDOM UR Routine 09/29/2020 1:44 PM HAND FLESHER 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 AVG GLUCOSE, A1C 171 mg/dL 12/08/2023 10:[address] [facility] [employer] [facility] Blood Venipuncture / Unknown 12/07/2023 11:36 PM CDT 12/07/2023 11:40 PM CDT Narrative [facility] [employer] [facility] - 12/08/2023 10:41 AM CDT HGB A1C INTERPRETATION NORMAL: <5.7% PRE-DIABETES: 5.7 - 6.4% DIABETES: 6.5% OR GREATER us Valdez Castro MD CHEMISTRY ORDERABLES Final Resul t [facility]# [id number] [address] [place] [address] * (ABNORMAL) MICROALBUMIN/CREATININE RATIO, RANDOM UR (09/29/2020 1:44 PM HAND FLESHER) MICROALBUMIN, URINE 2.2 No Reference Range mg/dL 09/29/2020 2:48 PM HAND FLESHER [facility] CREATININE, URINE 38.5(L) 40.0 - 278.0 mg/dL 09/29/2020 2:48 PM HAND FLESHER [facility] [employer] [facility] Comment:Reference Range vari es with fluid intake and diet. MICROALBUMIN/ CREAT RATIO, UR 57.1(H) <17.0 mg/g 09/29/2020 2:48 PM [facility] [employer] [facility] Urine URINE SPECIMEN OBTAINED BY CLEAN CATCH PROCEDURE / Unknown Collection / Unknown 09/29/2020 1:44 PM HAND FLESHER 09/29/2020 1:59 PM [facility] [employer] [facility] - 09/29/2020 2:48 PM HAND FLESHER Condition Microalbumin/Creat ratio Normal Males <17 Normal Females <25 Microalbuminuria Males 17-299 Microalbuminuria Females 25-299 Overt proteinuria >=300 Rafy Ward MD URINE ORDERABLES Final Result [facility] [employer] [facility]# [id number] [address] [place] [id number] * LIPID PANEL (09/29/2020 1:44 PM HAND FLESHER) CHOLESTEROL 93 <200 mg/dL 09/29/2020 2:38 PM [facility] [employer] [facility] TRIGLYCERIDE 72 <150 mg/dL 09/29/2020 2:38 PM [facility] [employer] [facility] HDL 53 40 - 59 mg/dL 09/29/2020 2:38 PM [facility] [employer] [facility] LDL CALCULATED 26 <100 mg/dL 09/29/2020 2:38 PM [facility] [employer] [facility] NON-HDL CHOLESTEROL 40 <130 mg/dL 09/29/2020 2:38 PM [facility] [employer] [facility] Blood Venipuncture / Unknown 09/29/2020 1:44 PM HAND FLESHER 09/29/2020 1:59 PM [facility] - 09/29/2020 2:38 PM HAND FLESHER TOTAL CHOLESTEROL mg/dL Desirable <200 Borderline high [...] Ward MD CHEMISTRY ORDERABLES Final Re sult [facility] CLIA# [id number] [address] [place] [address] from Last 3 Months or Most Recently Relevant to Health Maintenance Insurance RX [employer] RX Member Subscriber Plan / Payer (Ef fective 2023-Present) Name:Cosme Javier Relation to Subscriber:Self Name:Cosme Javier Payer ID:Not on file Group ID:[id number] Type:RX Medicare Part D Address: [address] [place] Advance Directives For more information, please contact: [phone] * NO CPR (In Event of Cardiopulmonary [...] 9:43 AM 07/15/2017 5:31 PM Care Teams Drier Operator Relationship Specialty Start Date End Date Dear, Campbell Bullard DO [address] [place] [address] PCP - General Family Practice 07/09/22
--- OUTSIDE RECORDS SUMMARY | 2025-06-29 02:43 | XMS_ITS | Encounter Summary ---
Author Organization [facility] Address 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
--- OUTSIDE RECORDS SUMMARY | 2025-06-29 02:43 | XMS_ITS | Encounter Summary ---
Author Organization [facility] Address 

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
[2025-06-29] MEDS: SODIUM CHLORIDE 0.9% IV 1,000 ML 999 ML IV CONT (03:42)
[2025-06-29] MEDS: HYDROmorphone HCL INJ (*CRX) 1 MG/ML SYR 0.5 MG IV PUSH (03:42)
[2025-06-29] MEDS: ONDANSETRON INJ 4 MG/2 ML VIAL IV PUSH (03:42)
[2025-06-29 04:33] LABS: Add Urine Microscopic? YES; Appearance Urine Turbid (Clear); Glucose Urine UA Trace mg/dL (Negative); Leukocyte Esterase Ur 3+ LEU/UL (Negative); Need Manual Microscopic Reviewed; Nitrate Urine Negative (Negative); Non Pathogenic Casts >20; Specific Grav Ur 1.020 (1.001-1.035)
[2025-06-29] MEDS: PROCHLORPERAZINE EDISYLATE 10 MG/2 ML VIAL IV PUSH (05:38)
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
--- NOTE | 2025-06-29 07:20 | PC.NURSE ---
BSR complete from night nurse. patient was incontinent of stool and antibiotics needed to be administered. this RN and night RN cleansed patient and changed linens and reinforced use of call light. patient verbalized understanding.
[2025-06-29] MEDS: MEROPENEM 1 GM in SODIUM CHLORIDE 0.9% IV 100 ML 200 ML IVPB ×3 (07:33→21:21)
--- NOTE | 2025-06-29 08:25 | PC.NURSE ---
this RN called XR to confirm a final on NGT read so the patient can be transferred to the floor as report had already been called at beginning of the shift. Radiology stated the read was taking place at this time and a final should be placed on the chart momentarily.
--- NOTE | 2025-06-29 09:14 | ADMGEN ---
This patient, Cosme Javier, was admitted to [facility] Surg Room 317-01. Patient/family oriented to hospital policies and general routines including ID bracelet, bed and alarms, visiting hours, pain management, procedures, bathroom and other care routines, personal items, smoking policy, room service/diet, and visiting hours. Information on how to activate the Rapid Response Team has been discussed. Patient/Family are encouraged to report perceived risks to care and to ask questions if they do not understand what they are told or what they should do.
--- NOTE | 2025-06-29 09:23 | P.PNIM_ITS ---
Progress Note: A&P Assessment and Plan (1) Acute UTI: Code(s): N39.0 - Urinary tract infection, site not specified Status: Acute Assessment and Plan: Started on meropenem Follow urine culture (2) Nausea & vomiting: Code(s): R11.2 - Nausea with vomiting, unspecified Status: Acute Assessment and Plan: Currently on NG tube Order gastric emptying study Consult GI Plan Catheter associated UTI. Start meropenem. Follow-up urine culture. Gastric distension, ileus versus SBO. General surgery consult. NPO. NG tube decompression. Hold anticoagulants. SCDs. Patient wishes to be DNR. IV fluids. Patient is from home. Accu-Cheks q.6 hours with hypoglycemia protocol. Protonix 40 mg IV q.a.m.. Subjective Date/time seen: 06/29/25 09:23 Interval history: Patient denies any previous history of abdominal surgery other than cholecystectomy. Patient complains of abdominal pain and experienced nausea and vomiting from yesterday. Abdominal/pelvis CT shows no evidence of small-bowel obstruction or ileus. Will consult Gastroenterology for possible gastroparesis. Unofficially discussed with surgery who agrees consulting Gastroenterology. Will follow GI recommendation Review of Systems Review of Systems: All systems reviewed & are unremarkable except as noted in HPI and below (Subjective) Exam Const: General: comfortable and no acute distress HENMT: Mouth: Yes moist mucous membranes Eyes: Pupils: Equal, round and reactive pupils present Neck: Neck: supple Resp: Effort & Inspection: normal respiratory effort Auscultation: clear to auscultation bilaterally Cardio: Rate: regular rate Rhythm: regular rhythm GI: Other: Distended but soft, hypoactive bowel sounds. Tender to palpation of the epigastrium. Tender to palpation at the suprapubic region. Neuro: Cranial nerves: Yes Equal, round and reactive pupils present Motor exam (neuro): 5/5 motor strength present throughout Extrem: General: no edema Objective Data Vital Signs Vital Signs: Vital Signs - 24 hr 06/28/25 23:29 06/29/25 02:16 06/29/25 02:17 Temperature 98.7 F Pulse Rate 86 73 Respiratory Rate 18 17 Blood Pressure 137/76 160/78 H Pulse Oximetry 96 96 97 Oxygen Delivery Room Air 06/29/25 02:48 06/29/25 03:03 06/29/25 03:35 Temperature Pulse Rate 74 74 Respiratory Rate 16 18 Blood Pressure Pulse Oximetry 96 95 96 Oxygen Delivery 06/29/25 03:45 06/29/25 04:00 06/29/25 04:15 Temperature Pulse Rate 73 73 73 Respiratory Rate 19 16 15 Blood Pressure Pulse Oximetry 96 94 93 Oxygen Delivery 06/29/25 04:32 06/29/25 04:54 06/29/25 05:00 Temperature Pulse Rate 75 76 75 Respiratory Rate 15 16 16 Blood Pressure Pulse Oximetry 95 95 94 Oxygen Delivery 06/29/25 05:46 06/29/25 06:00 06/29/25 06:02 Temperature Pulse Rate 81 78 77 Respiratory Rate 19 19 19 Blood Pressure 176/90 H 166/83 H Pulse Oximetry 94 95 95 Oxygen Delivery 06/29/25 06:15 06/29/25 06:17 06/29/25 06:25 Temperature Pulse Rate 77 77 97 Respiratory Rate 18 18 20 Blood Pressure 162/75 H 127/77 Pulse Oximetry 96 97 99 Oxygen Delivery 06/29/25 06:30 06/29/25 06:32 06/29/25 07:30 Temperature Pulse Rate 82 82 79 Respiratory Rate 18 19 18 Blood Pressure 163/71 H 149/71 H Pulse Oximetry 98 99 94 Oxygen Delivery 06/29/25 08:30 Temperature Pulse Rate 79 Respiratory Rate 20 Blood Pressure 135/69 Pulse Oximetry 95 Oxygen Delivery Intake/Output Intake/Output: Intake & Output 06/26/25 06/27/25 06/28/25 06/29/25 23:59 23:59 23:59 23:59 Intake Total 1100 Balance 1100 Meds/Results Medications: Active Medications Generic Name Dose Route Start Last Admin Trade Name Freq PRN Reason Stop Dose Admin Dextrose 12.5 gm 06/29/25 06:04 Dextrose 50% 25 Gm/50 Ml Syringe IV PUSH PRN PRN Hypoglycemia Protocol Glucose 15 gm 06/29/25 06:04 Glucose Oral Gel 15 Gm Of Glucse In 37.5 Gm Tube PO PRN PRN Hypoglycemia Protocol Meropenem 1 gm/ Sodium 100 mls @ 200 mls/hr 06/29/25 14:00 Chloride IVPB Q8H KIMBERLYN Sodium Chloride 1,000 mls @ 75 mls/hr 06/29/25 05:50 Normal Saline Iv IV CONT .[id number] KIMBERLYN Dextrose 1,000 mls @ 100 mls/hr 06/29/25 06:04 Dextrose 5% 1,000 Ml IVPB PRN PRN Hypoglycemia Protocol Ondansetron HCl 4 mg 06/29/25 05:50 Ondansetron Inj 4 Mg/2 Ml Vial IV PUSH Q4H PRN Nausea Pantoprazole Sodium 40 mg 06/29/25 09:00 Pantoprazole Sodium Iv 40 Mg Vial IV PUSH QAM KIMBERLYN Promethazine HCl 12.5 mg 06/29/25 05:50 Promethazine Hcl 25 Mg/Ml Ampul IV PUSH Q6H PRN Nausea Radiology Results: ITS Impressions Abdomen/Pelvis CT 06/29/25 08:17 IMPRESSION: 1. Cystitis. 2. Incidental findings above. Abdomen X-Ray 06/29/25 08:51 IMPRESSION: 1. NG tube within gastric body. Labs Labs: Laboratory Results - last 24 hr 06/28/25 06/29/25 06/29/25 23:34 03:34 04:11 WBC 8.3 RBC 4.64 Hgb 13.7 L Hct 42.6 MCV 91.8 MCH 29.5 MCHC 32.2 RDW 15.9 H Plt Count 215 MPV 8.6 Immature Gran % (Auto) 0.5 Neut % (Auto) 72.7 Lymph % (Auto) 21.8 Barry % (Auto) 4.5 Eos % (Auto) 0.0 Baso % (Auto) 0.5 Lymph # (Auto) 1.80 Barry # (Auto) 0.4 Eos # (Auto) 0.0 Baso # (Auto) 0.0 Abs Immat Gran (auto) 0.04 H Absolute Neuts (auto) 6.0 Absolute Nucleated RBC 0.000 Nucleated RBC % 0.0 Sodium 140 Potassium 4.5 Chloride 102 Carbon Dioxide 27 Anion Gap 11 BUN 23 H D Creatinine 1.05 Estim Creat Clear Calc 57 Estimated GFR > 60 Glucose 182 H Lactic Acid 1.6 Calcium 9.8 Total Bilirubin 0.9 AST 35 ALT 30 Alkaline Phosphatase 162 H Total Protein 8.8 H Albumin 4.8 Lipase 90 Urine Color Yellow Urine Appearance Turbid H Urine pH 7.0 Ur Specific [place] 1.020 Urine Protein 2+ H Urine Glucose (UA) Trace H Urine Ketones 3+ H Ur Blood (Man) 3+ H Urine Nitrate Negative Urine Bilirubin Negative Urine Urobilinogen 1.0 Add Ur Microanalysis Reviewed Leukocyte Esterase Rfl 3+ H Urine RBC >100 H Urine WBC >100 H Ur Squamous Epith Cells Occasional Urine Bacteria 4+ Urine Casts >20 Hospitalist MIPS Advance Care Plan I have confirmed that the patient's Advanced Care Plan is present, code status is documented, or surrogate decision maker is listed in patient medical record.: Yes
[2025-06-29] MEDS: SODIUM CHLORIDE 0.9% IV 1,000 ML 75 ML IV CONT (09:32)
[2025-06-29] MEDS: PANTOPRAZOLE SODIUM IV 40 MG VIAL IV PUSH (09:33)
[2025-06-30] MEDS: SODIUM CHLORIDE 0.9% IV 1,000 ML 75 ML IV CONT ×2 (02:10→21:09)
[2025-06-30 05:12] VITALS: BP 117/52; PULSE 70; RESP 16; TEMP 36.9; O2SAT 95
[2025-06-30] MEDS: MEROPENEM 1 GM in SODIUM CHLORIDE 0.9% IV 100 ML 200 ML IVPB ×3 (05:30→21:09)
[2025-06-30] MEDS: PANTOPRAZOLE SODIUM IV 40 MG VIAL IV PUSH (08:05)
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
[2025-06-30 14:00] VITALS: BP 122/74; PULSE 70; RESP 18; TEMP 37.4; O2SAT 99
--- NOTE | 2025-06-30 15:14 | PM.IMPN ---
Progress Note: A&P Assessment and Plan (1) Acute UTI: Code(s): N39.0 - Urinary tract infection, site not specified Status: Acute Assessment and Plan: Started on meropenem Follow urine culture (2) Nausea & vomiting: Code(s): R11.2 - Nausea with vomiting, unspecified Status: Acute Assessment and Plan: Currently on NG tube Order gastric emptying study Consult GI per GI- continue NG suction for now. EGD tomorrow Plan Catheter associated UTI. Start meropenem. Follow-up urine culture. Gastric distension, ileus versus SBO. General surgery consult. NPO. NG tube decompression. Hold anticoagulants. SCDs. Patient wishes to be DNR. IV fluids. Accu-Cheks q.6 hours with hypoglycemia protocol. Protonix 40 mg IV q.a.m.. Time Spent With Patient Time with patient: 25 - 35 minutes Subjective Date/time seen: 06/30/25 15:14 Interval history: Assuming care. Pt is seen and examined. Patient complains of abdominal pain and experienced nausea but a lot betetr with NG. Abdominal/pelvis CT shows no evidence of small-bowel obstruction or ileus. GI is following. Review of Systems Review of Systems: All systems reviewed & are unremarkable except as noted in HPI and below (Subjective) Exam Const: General: comfortable and no acute distress HENMT: Mouth: Yes moist mucous membranes Eyes: Pupils: Equal, round and reactive pupils present Neck: Neck: supple Resp: Effort & Inspection: normal respiratory effort Auscultation: clear to auscultation bilaterally Cardio: Rate: regular rate Rhythm: regular rhythm GI: Other: Distended but soft, hypoactive bowel sounds. Tender to palpation of the epigastrium. Tender to palpation at the suprapubic region. Neuro: Cranial nerves: Yes Equal, round and reactive pupils present Motor exam (neuro): 5/5 motor strength present throughout Extrem: General: no edema Objective Data Vital Signs Vital Signs: Vital Signs - 24 hr 06/29/25 20:00 06/29/25 20:09 06/30/25 05:12 Temperature 98.7 F 98.5 F Pulse Rate 70 70 70 Respiratory Rate 16 16 16 Blood Pressure 115/55 L 117/52 L Pulse Oximetry 95 95 95 Oxygen Delivery Room Air 06/30/25 08:00 06/30/25 14:00 Temperature 99.3 F Pulse Rate 70 Respiratory Rate 18 Blood Pressure 122/74 Pulse Oximetry 99 Oxygen Delivery Room Air Intake/Output Intake/Output: Intake & Output 06/27/25 06/28/25 06/29/25 06/30/25 23:59 23:59 23:59 23:59 Intake Total 2300 100 Output Total 750 1025 Balance 1550 -925 Meds/Results Medications: Active Medications Generic Name Dose Route Start Last Admin Trade Name Freq PRN Reason Stop Dose Admin Dextrose 12.5 gm 06/29/25 06:04 Dextrose 50% 25 Gm/50 Ml Syringe IV PUSH PRN PRN Hypoglycemia Protocol Glucose 15 gm 06/29/25 06:04 Glucose Oral Gel 15 Gm Of Glucse In 37.5 Gm Tube PO PRN PRN Hypoglycemia Protocol Meropenem 1 gm/ Sodium 100 mls @ 200 mls/hr 06/29/25 14:00 06/30/25 13:35 Chloride IVPB 200 mls/hr Q8H KIMBERLYN Administration Sodium Chloride 1,000 mls @ 75 mls/hr 06/29/25 05:50 06/30/25 02:10 Normal Saline Iv IV CONT 75 mls/hr .[id number] KIMBERLYN Administration Dextrose 1,000 mls @ 100 mls/hr 06/29/25 06:04 Dextrose 5% 1,000 Ml IVPB PRN PRN Hypoglycemia Protocol Ondansetron HCl 4 mg 06/29/25 05:50 Ondansetron Inj 4 Mg/2 Ml Vial IV PUSH Q4H PRN Nausea Promethazine HCl 12.5 mg 06/29/25 05:50 Promethazine Hcl 25 Mg/Ml Ampul IV PUSH Q6H PRN Nausea Radiology Results: ITS Impressions Abdomen/Pelvis CT 06/29/25 08:17 IMPRESSION: 1. Cystitis. 2. Incidental findings above. Abdomen X-Ray 06/29/25 08:51 IMPRESSION: 1. NG tube within gastric body. Chest X-Ray 06/29/25 10:40 IMPRESSION: 1: Moderate-sized patchy consolidations in the right mid and lower lung. Differential includes focal pneumonia, however, an underlying mass is possible given the configuration of the consolidations. A chest CT with contrast is recommended. Recommend follow-up to resolution. 2. Right hilar region is prominent. Differential includes overlapping vasculature, adenopathy or mass. A chest CT with contrast is recommended. 3. Possible small right-sided pleural effusion. Labs Labs: Laboratory Results - last 24 hr 06/29/25 06/29/25 06/30/25 17:18 23:08 04:40 POC Capillary Glucose 181 H 182 H 162 H 06/30/25 12:12 POC Capillary Glucose 158 H
[2025-06-30 19:58] VITALS: BP 144/88; PULSE 67; RESP 16; TEMP 37.6; O2SAT 95
[2025-06-30 20:00] VITALS: PULSE 67; RESP 16; O2SAT 95
[2025-06-30 21:09] VITALS: TEMP 37.6
[2025-06-30] MEDS: ACETAMINOPHEN ELIXIR 325 MG/10.15 ML UDC 650 MG PO (21:09)
[2025-06-30 22:09] VITALS: TEMP 37.1
[2025-07-01 05:20] VITALS: BP 131/67; PULSE 68; RESP 20; TEMP 36.3; O2SAT 95
[2025-07-01] MEDS: MEROPENEM 1 GM in SODIUM CHLORIDE 0.9% IV 100 ML 200 ML IVPB ×2 (05:37→14:52)
[2025-07-01 11:07] VITALS: BP 160/77; PULSE 70; RESP 20; TEMP 36.4; O2SAT 99
[2025-07-01] MEDS: LACTATED RINGERS 1,000 ML 150 ML IV CONT (11:14)
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
--- NOTE | 2025-07-01 12:14 | S_PTH ---
PATIENT: Cosme Javier LOC: [id number] U#:[id number] AGE/SX: 79/M ROOM: 317 RE06/30/[address]: Aydee Hgihtower APRN : 1945 BED: 01 DIS: 07/01/2025 SPEC #: [id number] RECD: 07/01/25 13:36 STATUS: PAULO BENAVIDES #: [id number] PATRICIA: 07/01/25 12:[address]: Mg Santiago DEPT: [facility] Surgical RECD BY: Marysol Dukes ENTERED: 07/01/25 13:37 SP TYPE: Surgical OTHR DR: Sahara Lee, MD Alicia Martinez MD Tissues: A - Gastric Biopsy B - Gastric Biopsy C - Gastric Biopsy Procedures: Hematoxylin and Eosin Stain Gross and Microscopic Level 4 H.Pylori
[2025-07-01 12:23] VITALS: BP 97/45; PULSE 70; RESP 20; O2SAT 100
--- NOTE | 2025-07-01 12:26 | P.PNGI_ITS ---
Progress Note: A&P Assessment and Plan (1) Gastric distention: Code(s): K31.89 - Other diseases of stomach and duodenum Status: Acute Assessment and Plan: See EGD report. A small, benign-appearing gastric ulcer was identified in the fundus/body of the stomach; however, this finding is not the cause of the patient's gastric distension and is highly suggestive of NGT-induced trauma (NGT removed). The antrum and duodenum are clear, with no obstructive pathology (benign or malignant) identified. The gastric distension is thus attributed to transient gastroparesis. The plan is to advance the diet to a full liquid diet today, with discharge scheduled for tomorrow on metoclopramide 10 mg to be taken pre-prandially and Pantoprazole 40 mg qd. Outpatient follow-up to be scheduled for 4-6 weeks, and a repeat EGD will be scheduled to confirm ulcer healing. Plan - full liquid diet - Pantoprazole 40 mg q a.m. - Metoclopramide 10 mg a.c. - Appt with GI clinic 4-6 weeks - EGD in 3 months Subjective Date/time seen: 07/01/25 12:26 Objective Data Vital Signs Vital Signs: Vital Signs - 24 hr 06/30/25 14:00 06/30/25 19:58 06/30/25 20:00 Temperature 99.3 F 99.6 F Pulse Rate 70 67 67 Respiratory Rate 18 16 16 Blood Pressure 122/74 144/88 H Pulse Oximetry 99 95 95 Oxygen Delivery Room Air 06/30/25 21:09 06/30/25 22:09 07/01/25 05:20 Temperature 99.6 F 98.8 F 97.4 F L Pulse Rate 68 Respiratory Rate 20 Blood Pressure 131/67 Pulse Oximetry 95 Oxygen Delivery 07/01/25 11:07 Temperature 97.6 F Pulse Rate 70 Respiratory Rate 20 Blood Pressure 160/77 H Pulse Oximetry 99 Oxygen Delivery Room Air Intake/Output Intake/Output: Intake & Output 06/28/25 06/29/25 06/30/25 07/01/25 23:59 23:59 23:59 23:59 Intake Total 2300 1900 400 Output Total 750 4346 1425 Balance 6708 -130 -8752 Meds/Results Medications: Active Medications Generic Name Dose Route Start Last Admin Trade Name Freq PRN Reason Stop Dose Admin Acetaminophen 650 mg 06/30/25 20:14 06/30/25 21:09 Acetaminophen Elixir 325 Mg/10.15 Ml Udc PO 650 mg Q6H PRN Administration Mild Pain (1-3) or Fever Dextrose 12.5 gm 06/29/25 06:04 Dextrose 50% 25 Gm/50 Ml Syringe IV PUSH PRN PRN Hypoglycemia Protocol Glucose 15 gm 06/29/25 06:04 Glucose Oral Gel 15 Gm Of Glucse In 37.5 Gm Tube PO PRN PRN Hypoglycemia Protocol Meropenem 1 gm/ Sodium 100 mls @ 200 mls/hr 06/29/25 14:00 07/01/25 06:07 Chloride IVPB 07/05/25 22:29 Infused Q8H KIMBERLYN Infusion Sodium Chloride 1,000 mls @ 75 mls/hr 06/29/25 05:50 06/30/25 21:09 Normal Saline Iv IV CONT 75 mls/hr .[id number] KIMBERLYN Administration Dextrose 1,000 mls @ 100 mls/hr 06/29/25 06:04 Dextrose 5% 1,000 Ml IVPB PRN PRN Hypoglycemia Protocol Lactated Ringer's 1,000 mls @ 150 mls/hr 07/01/25 11:05 07/01/25 12:19 Lr - Lactated Ringers Iv IV CONT 150 mls/hr .[id number] KIMBERLYN Infusion Ondansetron HCl 4 mg 06/29/25 05:50 Ondansetron Inj 4 Mg/2 Ml Vial IV PUSH Q4H PRN Nausea Promethazine HCl 12.5 mg 06/29/25 05:50 Promethazine Hcl 25 Mg/Ml Ampul IV PUSH Q6H PRN Nausea Radiology Results: ITS Impressions Abdomen/Pelvis CT 06/29/25 08:17 IMPRESSION: 1. Cystitis. 2. Incidental findings above. Abdomen X-Ray 06/29/25 08:51 IMPRESSION: 1. NG tube within gastric body. Chest X-Ray 06/29/25 10:40 IMPRESSION: 1: Moderate-sized patchy consolidations in the right mid and lower lung. Differential includes focal pneumonia, however, an underlying mass is possible given the configuration of the consolidations. A chest CT with contrast is recommended. Recommend follow-up to resolution. 2. Right hilar region is prominent. Differential includes overlapping vasculature, adenopathy or mass. A chest CT with contrast is recommended. 3. Possible small right-sided pleural effusion. Gastric Emptying Nuclear Medicine 06/30/25 15:34 IMPRESSION: 1. Normal gastric emptying. Chest CT 06/30/25 21:13 IMPRESSION: 1. New patchy consolidation at the sites of prior ground glass opacities in the right middle lobe consistent with progression of pneumonia. 2. Chronic mild pleural thickening the right lower lung with regions of pleural- parenchymal scarring and chronic round atelectasis in the right middle and lower lobes. 3. Mildly enlarged, likely reactive right paratracheal lymph node. Labs Labs: Laboratory Results - last 24 hr 06/30/25 06/30/25 07/01/25 18:03 23:50 06:43 POC Capillary Glucose 120 H 148 H 117 H 07/01/25 11:12 POC Capillary Glucose 100
[2025-07-01 12:33] VITALS: BP 106/50; PULSE 70; RESP 20; O2SAT 98
[2025-07-01 12:43] VITALS: BP 124/57; PULSE 70; RESP 20; O2SAT 98
[2025-07-01 13:31] LABS: Hematocrit 37.5 % (42.0-52.0); Hemoglobin 11.5 g/dL (14.0-18.0); Mean Corpuscular HGB Conc 30.7 g/dl (32-36); Mean Corpuscular Hemoglobin 29.6 pg (26-34); Mean Corpuscular Volume 96.6 fl (80-100); Platelet Count Result 143 k/mm3 (150-375); Red Blood Count 3.88 M/mm3 (4.6-6.20); White Blood Count 7.4 K/mm3 (4.5-10.0)
[2025-07-01 13:35] LABS: Anion Gap 7 mmol/L (4-12); Blood Urea Nitrogen 22 mg/dL (9-20); Calcium 8.5 mg/dL (8.4-10.2); Carbon Dioxide 26 mmol/L (22-30); Chloride 106 mmol/L (98-107); Estimated CRCL calculation 76 ml/min; Estimated Glomerular Filt Rate > 60; Glucose 115 mg/dL (65-110); Potassium 3.9 mmol/L (3.4-5.0); Sodium 139 mmol/L (137-145)
[2025-07-01 14:00] VITALS: BP 126/50; PULSE 70; RESP 18; TEMP 36.3; O2SAT 98
--- NOTE | 2025-07-01 15:08 | P.PNIM_ITS ---
Progress Note: A&P Assessment and Plan (1) Acute UTI: Code(s): N39.0 - Urinary tract infection, site not specified Status: Acute Assessment and Plan: Started on meropenem Follow urine culture (2) Nausea & vomiting: Code(s): R11.2 - Nausea with vomiting, unspecified Status: Acute Assessment and Plan: Currently on NG tube Order gastric emptying study Consult GI per GI- continue NG suction for now. EGD tomorrow Plan Catheter associated UTI. Start meropenem. Follow-up urine culture. Gastric distension, ileus versus SBO. General surgery consult. NPO. NG tube decompression. Hold anticoagulants. SCDs. Patient wishes to be DNR. IV fluids. Accu-Cheks q.6 hours with hypoglycemia protocol. Protonix 40 mg IV q.a.m.. Subjective Date/time seen: 07/01/25 15:08 Interval history: Pt is seen and examined. GI is following. Review of Systems Review of Systems: All systems reviewed & are unremarkable except as noted in HPI and below (Subjective) Exam Const: General: comfortable and no acute distress HENMT: Mouth: Yes moist mucous membranes Eyes: Pupils: Equal, round and reactive pupils present Neck: Neck: supple Resp: Effort & Inspection: normal respiratory effort Auscultation: clear to auscultation bilaterally Cardio: Rate: regular rate Rhythm: regular rhythm GI: Other: Distended but soft, hypoactive bowel sounds. Tender to palpation of the epigastrium. Tender to palpation at the suprapubic region. Neuro: Cranial nerves: Yes Equal, round and reactive pupils present Motor exam (neuro): 5/5 motor strength present throughout Extrem: General: no edema Objective Data Vital Signs Vital Signs: Vital Signs - 24 hr 06/30/25 19:58 06/30/25 20:00 06/30/25 21:09 Temperature 99.6 F 99.6 F Pulse Rate 67 67 Respiratory Rate 16 16 Blood Pressure 144/88 H Pulse Oximetry 95 95 Oxygen Delivery Room Air Oxygen Flow Rate 06/30/25 22:09 07/01/25 05:20 07/01/25 11:07 Temperature 98.8 F 97.4 F L 97.6 F Pulse Rate 68 70 Respiratory Rate 20 20 Blood Pressure 131/67 160/77 H Pulse Oximetry 95 99 Oxygen Delivery Room Air Oxygen Flow Rate 07/01/25 12:23 07/01/25 12:33 07/01/25 12:43 Temperature Pulse Rate 70 70 70 Respiratory Rate 20 20 20 Blood Pressure 97/45 L 106/50 L 124/57 L Pulse Oximetry 100 98 98 Oxygen Delivery Nasal Cannula Room Air Room Air Oxygen Flow Rate 4 Intake/Output Intake/Output: Intake & Output 06/28/25 06/29/25 06/30/25 07/01/25 23:59 23:59 23:59 23:59 Intake Total 2300 1900 1588.7 Output Total 750 2725 1425 Balance 1550 -825 163.7 Meds/Results Medications: Active Medications Generic Name Dose Route Start Last Admin Trade Name Freq PRN Reason Stop Dose Admin Acetaminophen 650 mg 06/30/25 20:14 06/30/25 21:09 Acetaminophen Elixir 325 Mg/10.15 Ml Udc PO 650 mg Q6H PRN Administration Mild Pain (1-3) or Fever Dextrose 12.5 gm 06/29/25 06:04 Dextrose 50% 25 Gm/50 Ml Syringe IV PUSH PRN PRN Hypoglycemia Protocol Glucose 15 gm 06/29/25 06:04 Glucose Oral Gel 15 Gm Of Glucse In 37.5 Gm Tube PO PRN PRN Hypoglycemia Protocol Meropenem 1 gm/ Sodium 100 mls @ 200 mls/hr 06/29/25 14:00 07/01/25 14:52 Chloride IVPB 07/05/25 22:29 200 mls/hr Q8H KIMBERLYN Administration Sodium Chloride 1,000 mls @ 75 mls/hr 06/29/25 05:50 07/01/25 14:48 Normal Saline Iv IV CONT 75 mls/hr .[id number] KIMBERLYN Infusion Dextrose 1,000 mls @ 100 mls/hr 06/29/25 06:04 Dextrose 5% 1,000 Ml IVPB PRN PRN Hypoglycemia Protocol Ondansetron HCl 4 mg 06/29/25 05:50 Ondansetron Inj 4 Mg/2 Ml Vial IV PUSH Q4H PRN Nausea Promethazine HCl 12.5 mg 06/29/25 05:50 Promethazine Hcl 25 Mg/Ml Ampul IV PUSH Q6H PRN Nausea Radiology Results: ITS Impressions Abdomen/Pelvis CT 06/29/25 08:17 IMPRESSION: 1. Cystitis. 2. Incidental findings above. Abdomen X-Ray 06/29/25 08:51 IMPRESSION: 1. NG tube within gastric body. Chest X-Ray 06/29/25 10:40 IMPRESSION: 1: Moderate-sized patchy consolidations in the right mid and lower lung. Differential includes focal pneumonia, however, an underlying mass is possible given the configuration of the consolidations. A chest CT with contrast is recommended. Recommend follow-up to resolution. 2. Right hilar region is prominent. Differential includes overlapping vasc ulature, adenopathy or mass. A chest CT with contrast is recommended. 3. Possible small right-sided pleural effusion. Gastric Emptying Nuclear Medicine 06/30/25 15:34 IMPRESSION: 1. Normal gastric emptying. Chest CT 06/30/25 21:13 IMPRESSION: 1. New patchy consolidation at the sites of prior ground glass opacities in the right middle lobe consistent with progression of pneumonia. 2. Chronic mild pleural thickening the right lower lung with regions of pleural- parenchymal scarring and chronic round atelectasis in the right middle and lower lobes. 3. Mildly enlarged, likely reactive right paratracheal lymph node. Labs Labs: Laboratory Results - last 24 hr 06/30/25 06/30/25 07/01/25 18:03 23:50 06:43 WBC RBC Hgb Hct MCV MCH MCHC RDW Plt Count MPV Sodium Potassium Chloride Carbon Dioxide Anion Gap BUN Creatinine Estim Creat Clear Calc Estimated GFR Glucose POC Capillary Glucose 120 H 148 H 117 H Calcium 07/01/25 07/01/25 07/01/25 11:12 12:34 13:19 WBC 7.4 RBC 3.88 L Hgb 11.5 L Hct 37.5 L MCV 96.6 D MCH 29.6 MCHC 30.7 L RDW 15.9 H Plt Count 143 L MPV 9.2 Sodium 139 Potassium 3.9 Chloride 106 Carbon Dioxide 26 Anion Gap 7 BUN 22 H Creatinine 0.77 Estim Creat Clear Calc 76 Estimated GFR > 60 Glucose 115 H POC Capillary Glucose 100 106 H Calcium 8.5
--- NOTE | 2025-07-01 15:23 | PM.DS ---
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 Vomitus has been dark green. Patient has a history of cholecystectomy. He reports pain for multiple days at his bladder. He had a bowel movement on the morning of admission which was formed. Reports good bowel movements prior to that. # uti was started on meropenem will switch to bactrum for 10 more doses- rx sent # Gastric distention: the patient's clinical and tomographic imaging are compatible with severe gastric retention, for which differential diagnosis includes gastroparesis versus an obstructive process in the antrum/pyloric region. Will perform an EGD tomorrow for, and will keep NG suction for now. If the EGD rules out mechanical obstruction, well recommend fractionated diet and prokinetics. - full liquid diet - advance as tolerated- able to tolerated diet - Pantoprazole 40 mg q a.m. - Metoclopramide 10 mg a.c. - Appt with GI clinic 4-6 weeks - EGD in 3 months Time Spent with Patient Time attestation: Total time spent providing and/or coordinating discharge services: Exam Const: General: comfortable and no acute distress HENMT: Mouth: Yes moist mucous membranes Eyes: Pupils: Equal, round and reactive pupils present Neck: Neck: supple Resp: Effort & Inspection: normal respiratory effort Auscultation: clear to auscultation bilaterally Cardio: Rate: regular rate Rhythm: regular rhythm GI: Other: Distended but soft, hypoactive bowel sounds. Tender to palpation of the epigastrium. Tender to palpation at the suprapubic region. Neuro: Cranial nerves: Yes Equal, round and reactive pupils present Motor exam (neuro): 5/5 motor strength present throughout Extrem: General: no edema DS: Data Data Completed and Pending Pending studies at discharge: Pending at discharge 07/01/25 12:14 Surgical [PTH] Routine Surgical [PTH] Routine Labs on day of discharge: Labs from last 24 hours 07/01/25 07/01/25 07/01/25 13:19 12:34 11:12 WBC 7.4 RBC 3.88 L Hgb 11.5 L Hct 37.5 L MCV 96.6 D MCH 29.6 MCHC 30.7 L RDW 15.9 H Plt Count 143 L MPV 9.2 Sodium 139 Potassium 3.9 Chloride 106 Carbon Dioxide 26 Anion Gap 7 BUN 22 H Creatinine 0.77 Estim Creat Clear Calc 76 Estimated GFR > 60 Glucose 115 H POC Capillary Glucose 106 H 100 Calcium 8.5 07/01/25 06/30/25 06/30/25 06:43 23:50 18:03 WBC RBC Hgb Hct MCV MCH MCHC RDW Plt Count MPV Sodium Potassium Chloride Carbon Dioxide Anion Gap BUN Creatinine Estim Creat Clear Calc Estimated GFR Glucose POC Capillary Glucose 117 H 148 H 120 H Calcium Preliminary micro results at discharge 06/29/25 04:11 - Preliminary Unspecified Urine Gram negative bacilli isolated Discharge Plan Discharge Attending physician on discharge: Monty Salazar Oca Discharging Clinician: Aydee Hightower Patient Disposition: Home Activity: january shower Diet: heart healthy Patient Instructions: Antibiotic Form, Apixaban (By mouth) Patient Language: [place] Stand Alone Forms: General Discharge Information Follow-up/Referrals: Rosa,MD Sahara [Primary Care Provider, Unknown] - 2 Weeks Discharge Medications: New sulfamethoxazole-trimethoprim [Bactrim DS] 800-160 mg tablet 1 tablet PO Q12H Qty: 10 0RF Continued atorvastatin 80 mg tablet 40 mg PO DAILY Eliquis 5 mg Tablet 5 mg PO BID Patient Comments: takes 1/2 tab po bid tamsulosin 0.4 mg capsule 0.4 mg PO DAILY omeprazole 20 mg Capsule,Delayed Release(Dr/Ec) 20 mg PO BID mirabegron [Myrbetriq] 50 mg tablet extended release 24 hr 50 mg PO DAILY aspirin [Adult Low Dose Aspirin] 81 mg Tablet,Delayed Release (Dr/Ec) 81 mg PO DAILY Trulicity 1.5 mg/0.5 mL pen injector 1.5 mg SUBCUT WEEKLY Patient Comments: TAKES ON saturday Rx Instructions: saturday gabapentin 300 mg capsule 300 mg PO TID metformin 500 mg tablet extended release 24 hr 500 mg PO BID amiodarone [Pacerone] 200 mg Tablet 200 mg PO BID Qty: 60 0RF ferrous sulfate 325 mg (65 mg iron) tablet 325 mg PO EVERY OTHER DAY magnesium oxide 400 mg (241.3 mg magnesium) tablet 400 mg PO BID metoprolol tartrate 25 mg tablet 25 mg PO Q12H Date of admission: 06/30/25 09:55 Primary Care Provider: Rosa,Sahara Admitting Provider: Alicia Martinez Attending physician on admission: Alicia Martinez Condition: Stable Hospitalist MIPS Heart Failure (Exclusion) Patient has history of Heart Transplant or Left Ventricular Assistive Device?: No IF YES, STOP HERE Heart Failure (Qualifier) Patient has current or prior documentation of LVEF less than or equal to 40%, or mod/servere depressed LVSF?: No IF NO, STOP HERE
--- NOTE | 2025-07-05 07:53 | PC.NURSE ---
Urine cx growing E. coli. Pt dc on Bactrim which is susceptible.
== END 2025-07-01 16:30 | disposition home or self-care (01) | DRG 74 ==
LOC: ANHED 06-29 05:55 → ANH3MEDSUR 06-29 06:31
PROVIDERS: Internal Medicine Gastroenterology; Admitting Provider General Practice; Emergency Provider Emergency Medicine; PCP Internal Medicine; Visit Provider Nurse Practitioner
PROC: 0DJ08ZZ Inspection of Upper Intestinal Tract, Via Natural or Artificial Opening Endoscopic (ICD-10-PCS; principal; 2025-07-01 15:00)
DX: E11.43 Type 2 diabetes mellitus with diabetic autonomic (poly)neuropathy (principal); T83.511A Infection and inflammatory reaction due to indwelling urethral catheter, initial encounter; K25.3 Acute gastric ulcer without hemorrhage or perforation; N39.0 Urinary tract infection, site not specified; K31.84 Gastroparesis; K29.30 Chronic superficial gastritis without bleeding; I25.10 Atherosclerotic heart disease of native coronary artery without angina pectoris; G62.9 Polyneuropathy, unspecified; N40.0 Benign prostatic hyperplasia without lower urinary tract symptoms; E11.42 Type 2 diabetes mellitus with diabetic polyneuropathy; I10 Essential (primary) hypertension; M54.17 Radiculopathy, lumbosacral region; Z90.49 Acquired absence of other specified parts of digestive tract; Z79.01 Long term (current) use of anticoagulants; Z86.73 Personal history of transient ischemic attack (TIA), and cerebral infarction without residual deficits; I25.2 Old myocardial infarction; Z95.5 Presence of coronary angioplasty implant and graft; Z96.653 Presence of artificial knee joint, bilateral; Z66 Do not resuscitate
CPT/HCPCS: 36415; 71045; 71250; 74176; 78264; 80048; 80053; 81001; 82948; 83605; 83690; 85025; 85027; 87086; 87186; 88305; 88342; 96361; 96374; 96375; 99285; A9270; A9541; J0780; J1171; J2003; J2185; J2405; J2470; J2704; J7030; J7120